=== PATIENT | male | born 1960 | race Caucasian/White ===

== ENCOUNTER 2022-09-26 18:30 | Outpatient (RCR) | payer OTHER, SELFPAY | END 2022-10-20 23:59 | disposition home or self-care (01) | LOC: MM 18:30 | PROVIDERS: PCP Internal Medicine; Visit Provider Internal Medicine | DX: Z51.81 Encounter for therapeutic drug level monitoring (principal); Z79.01 Long term (current) use of anticoagulants; I48.0 Paroxysmal atrial fibrillation | CPT/HCPCS: 85610; G0463 ==

== ENCOUNTER 2022-10-25 10:34 | Outpatient (RCR) | payer OTHER, SELFPAY | END 2022-11-20 17:13 | disposition home or self-care (01) | LOC: MM 10:34 | PROVIDERS: PCP Internal Medicine; Visit Provider Internal Medicine | DX: Z51.81 Encounter for therapeutic drug level monitoring (principal); Z79.01 Long term (current) use of anticoagulants; I48.0 Paroxysmal atrial fibrillation | CPT/HCPCS: 85610; G0463 ==

== ENCOUNTER 2022-11-21 10:03 | Outpatient (RCR) | payer OTHER, SELFPAY | END 2022-12-21 17:47 | disposition home or self-care (01) | LOC: MM 10:03 | PROVIDERS: PCP Internal Medicine; Visit Provider Internal Medicine | DX: Z51.81 Encounter for therapeutic drug level monitoring (principal); Z79.01 Long term (current) use of anticoagulants; I48.0 Paroxysmal atrial fibrillation | CPT/HCPCS: 85610; G0463 ==

== ENCOUNTER 2022-12-22 10:43 | Outpatient (RCR) | payer OTHER, SELFPAY | END 2023-01-19 17:06 | disposition home or self-care (01) | LOC: MM 10:43 | PROVIDERS: PCP Internal Medicine; Visit Provider Internal Medicine | DX: Z51.81 Encounter for therapeutic drug level monitoring (principal); Z79.01 Long term (current) use of anticoagulants; I48.0 Paroxysmal atrial fibrillation | CPT/HCPCS: 85610; G0463 ==

== ENCOUNTER 2023-01-22 02:14 | Outpatient (RCR) | payer OTHER, SELFPAY | END 2023-02-20 17:31 | disposition home or self-care (01) | LOC: MM 02:14 | PROVIDERS: PCP Internal Medicine; Visit Provider Internal Medicine | DX: Z51.81 Encounter for therapeutic drug level monitoring (principal); Z79.01 Long term (current) use of anticoagulants; I48.0 Paroxysmal atrial fibrillation | CPT/HCPCS: 85610; G0463 ==

== ENCOUNTER 2023-02-14 09:44 | Outpatient (RCR) | payer OTHER, SELFPAY | END 2023-03-08 15:44 | disposition home or self-care (01) | LOC: PT 09:44 | PROVIDERS: PCP Internal Medicine; Visit Provider Family Medicine | DX: H81.10 Benign paroxysmal vertigo, unspecified ear (principal) | CPT/HCPCS: 97112; 97161 ==

== ENCOUNTER 2023-02-21 00:21 | Outpatient (RCR) | payer OTHER, SELFPAY | END 2023-03-22 16:23 | disposition home or self-care (01) | LOC: MM 00:21 | PROVIDERS: PCP Internal Medicine; Visit Provider Internal Medicine | DX: Z51.81 Encounter for therapeutic drug level monitoring (principal); Z79.01 Long term (current) use of anticoagulants; I48.0 Paroxysmal atrial fibrillation | CPT/HCPCS: 85610; G0463 ==

== ENCOUNTER 2023-03-23 09:44 | Outpatient (RCR) | payer OTHER, SELFPAY | END 2023-04-20 15:26 | disposition home or self-care (01) | LOC: MM 09:44 | PROVIDERS: PCP Internal Medicine; Visit Provider Internal Medicine | DX: Z51.81 Encounter for therapeutic drug level monitoring (principal); Z79.01 Long term (current) use of anticoagulants; I48.0 Paroxysmal atrial fibrillation | CPT/HCPCS: 85610; G0463 ==

== ENCOUNTER 2023-04-23 02:44 | Outpatient (RCR) | payer OTHER, SELFPAY | END 2023-05-23 17:21 | disposition home or self-care (01) | LOC: MM 02:44 | PROVIDERS: PCP Internal Medicine; Visit Provider Internal Medicine | DX: Z51.81 Encounter for therapeutic drug level monitoring (principal); Z79.01 Long term (current) use of anticoagulants; I48.0 Paroxysmal atrial fibrillation | CPT/HCPCS: 85610; G0463 ==

== ENCOUNTER 2023-05-24 01:08 | Outpatient (RCR) | payer OTHER, SELFPAY | END 2023-06-21 17:38 | disposition home or self-care (01) | LOC: MM 01:08 | PROVIDERS: PCP Internal Medicine; Visit Provider Internal Medicine | DX: Z51.81 Encounter for therapeutic drug level monitoring (principal); Z79.01 Long term (current) use of anticoagulants; I48.0 Paroxysmal atrial fibrillation | CPT/HCPCS: 85610; G0463 ==

== ENCOUNTER 2023-06-12 10:09 | Outpatient (OUT) | payer OTHER, SELFPAY ==
[2023-06-12 11:42] LABS: Alanine Aminotransferase 28 U/L (16-63); Albumin Globulin Ratio 0.8; Albumin Level 3.3 g/dL (3.4-5.0); Alkaline Phosphatase 93 U/L (46-116); Anion Gap 12.9; Aspartate Amino Transferase 18 U/L (15-37); BUN Creatinine Ratio 11.8; Bilirubin Total 0.6 mg/dL (0.2-1.0); Calcium 8.6 mg/dL (8.5-10.1); Carbon Dioxide 28.4 mmol/L (21.0-32.0); Chloride 103 mmol/L (98-107); Chol HDL Ratio 4.1; Cholesterol 135 mg/dL (<=200); Estimated GFR (African America >60 (>=60); Estimated GFR (Non-African Ame >60 (>=60); Globulin 4.4 g/dL; Glucose 85 mg/dL (74-106); HDL Cholesterol 33 mg/dL (40-60); Potassium 4.3 mmol/L (3.5-5.1); Sodium 140 mmol/L (136-145); Total Protein 7.7 g/dL (6.4-8.2); Triglycerides 240 mg/dL (<=150)
== END 2023-06-12 10:10 | disposition home or self-care (01) ==
LOC: LAB 10:10
PROVIDERS: PCP Family Medicine; Visit Provider Family Medicine
DX: E78.2 Mixed hyperlipidemia (principal)
CPT/HCPCS: 36415; 80053; 80061

== ENCOUNTER 2023-06-22 03:21 | Outpatient (RCR) | payer OTHER, SELFPAY | END 2023-07-20 13:58 | disposition home or self-care (01) | LOC: MM 03:21 | PROVIDERS: PCP Family Medicine; Visit Provider Internal Medicine | DX: Z51.81 Encounter for therapeutic drug level monitoring (principal); Z79.01 Long term (current) use of anticoagulants; I48.0 Paroxysmal atrial fibrillation ==

== ENCOUNTER 2023-07-23 03:18 | Outpatient (RCR) | payer OTHER, SELFPAY | END 2023-08-21 18:11 | disposition home or self-care (01) | LOC: MM 03:18 | PROVIDERS: PCP Family Medicine; Visit Provider Internal Medicine | DX: Z51.81 Encounter for therapeutic drug level monitoring (principal); Z79.01 Long term (current) use of anticoagulants; I48.0 Paroxysmal atrial fibrillation | CPT/HCPCS: 85610; G0463 ==

== ENCOUNTER 2023-08-22 00:28 | Outpatient (RCR) | payer OTHER, SELFPAY | END 2023-09-21 11:28 | disposition home or self-care (01) | LOC: MM 00:28 | PROVIDERS: PCP Family Medicine; Visit Provider Internal Medicine | DX: Z51.81 Encounter for therapeutic drug level monitoring (principal); Z79.01 Long term (current) use of anticoagulants; I48.0 Paroxysmal atrial fibrillation | CPT/HCPCS: 85610; G0463 ==

== ENCOUNTER 2023-09-20 08:22 | Outpatient (OUT) | payer OTHER, SELFPAY ==
--- OUTSIDE RECORDS SUMMARY | 2023-09-20 08:35 | XMS_ITS | CCD ---
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 Name Role Phone PHYSICIAN, DEFAULT Unavailable Unavailable PHYSICIAN, DEFAULT Unavailable Unavailable CARLY GAMBLE Unavailable Unavailable JEANCARLOS GUDINO Unavailable Unavailable Jeancarlos Gudino Unavailable Unavailable Unavailable Jeancarlos GUDINO Primary Care Physician Jeancarlos GUDINO Referring Unavailable TERESE, Jeancarlos Finney Attending Unavailable TERESE, Jeancarlos Finney Admitting Unavailable TERESE, Jeancarlos Finney Attending Unavailable TERESE, Jeancarlos Finney Attending Unavailable Regi Leong Unavailable TERESE, DR JEANCARLOS Finney Consulting Unavailable TERESE, DR JEANCARLOS Malloyitting Unavailable TERESE, DR JEANCARLOS Finney Attending Unavailable TERESE, DR JEANCARLOS Finney Primary Care Unavailable TERESE, DR JEANCARLOS Finney Consulting Unavailable TERESE, DR JEANCARLOS Finney Attending Unavailable TERESE, DR JEANCARLOS Finney Primary Care Unavailable TERESE, DR JEANCARLOS Finney Admitting Unavailable TYE, DR CARLY White Consulting Unavailable GAMBLE, DR CARLY White Attending Unavailable GAMBLE, DR CARLY White Admitting Unavailable TERESE, DR JEANCARLOS Finney Primary Care Unavailable TERESE, DR JEANCARLOS Finney Consulting Unavailable TERESE, DR JEANCARLOS Finney Attending Unavailable TERESE, DR JEANCARLOS Finney Admitting Unavailable TERESE, DR JEANCARLOS Finney Primary Care Unavailable SALO, DR REGI Jones Primary Care Unavailable SALO, DR REGI Jones Consulting Unavailable LEONG, DR REGI Jones Attending Unavailable SALO, DR REGI Jones Admitting Unavailable TERESE, DR JEANCARLOS Finney Attending Unavailable TERESE, DR JEANCARLOS Finney Admitting Unavailable TERESE, DR JEANCARLOS Finney Primary Care Unavailable TERESE, DR JEANCARLOS Finney Consulting Unavailable GAMBLE, DR CARLY White Consulting Unavailable GAMBLE, DR CARLY White Attending Unavailable GAMBLE, DR CARLY White Admitting Unavailable TERESE, DR JEANCARLOS Finney Primary Care Unavailable TERESE, DR JEANCARLOS Finney Attending Unavailable TERESE, DR JEANCARLOS Finney Admitting Unavailable TERESE, DR JEANCARLOS Finney Primary Care Unavailable TERESE, DR JEANCARLOS Finney Consulting Unavailable TERESE, DR JEANCARLOS Finney Consulting Unavailable TERESE, DR JEANCARLOS Finney Admitting Unavailable TERESE, DR JEANCARLOS Finney Attending Unavailable TERESE, DR JEANCARLOS Finney Primary Care Unavailable TERESE, DR JEANCARLOS Finney Consulting Unavailable TERESE, DR JEANCARLOS Finney Admitting Unavailable TERESE, DR JEANCARLOS Finney Attending Unavailable TERESE, DR JEANCARLOS Finney Primary Care Unavailable TERESE, DR JEANCARLOS Finney Consulting Unavailable TERESE, DR JEANCARLOS Finney Admitting Unavailable TERESE, DR JEANCARLOS Finney Attending Unavailable TERESE, DR JEANCARLOS Finney Primary Care Unavailable TERESE, DR JEANCARLOS Finney Consulting Unavailable TERESE, DR JEANCARLOS Finney Admitting Unavailable TERESE, DR JEANCARLOS Finney Attending Unavailable TERESE, DR JEANCARLOS Finney Primary Care Unavailable German, Kamal Unavailable Regi Leong Unavailable Terese, Dr. Jeancarlos Dhillon [facility] Tomas Gamble, Dr. Carly Godoy Attending Simran vailable Tye, Dr. Carly Godoy Referring Simran vailable Terese, Dr. Jeancarlos Dhillon [facility] Tomas Gamble, Dr. Carly Godoy Attending Simran vailable Tye, Dr. Carly Godoy Referring Simran vailable MD Regi Leong Primary Care Provider [phone] MD Uche Porter Attending Provider [phone] Stephaniaban, Kamal Admitting Unavailable German, Uche Attending Unavailable Regi Leong Primary Care Unavailable Regi Leong Primary Care Unavailable Chaban, Kamal Admitting Unavailable Changuyễn, Uche Attending Unavailable German, Uche Attending Unavailable Regi Leong Primary Care Unavailable Chaban, Kamal Admitting Unavailable Allergies Allergy Classification Reported Allergen(s) Allergy Type Date of Onset Reaction(s) Facility (17 sources) dabigatran etexilate; Translations: [Pradaxa CAPS] [facility] Work Phone: (13 sources) Penicillins; Translations: [Penicillins] Allergy to drug (finding) [address] [facility] Work Phone: (2 sources) dabigatran etexilate; Translations: [dabigatran] Drug Allergy Rectal hemorrhage (disorder), Bleeding from nose (finding), Incontinence (finding) [facility] [place] (8 sources) Penicillin; Translations: [penicillin] Drug Allergy 7 anaphylaxis [facility] (2 sources) dabigatran etexilate; Translations: [dabigatran etexilate] Drug Allergy 4 bleeding [facility] (1 source) Penicillins Drug allergy (disorder) 4 [facility] Repository Medications Current Medications Medication Drug Class(es) Dates Sig (Normalized) Sig (Original) Aciphex 20 mg Tab-EC (1 source) Start: 05-21-2021 take 1 tablet by mouth once daily Aciphex 20 mg Tab-EC 20 mg = 1 tab(s), Oral, Daily, # 90 tab(s), Refills(s) 3, Pharmacy: [facility], 180.3, cm, 05/20/20 15:18:00 EST, Height/Length Dosing, 108.4, kg, 05/20/20 15:18:00 EST, Weight Dosing Start Date: 05/21/21 Status: Ordered 12 hr buPROPion hydrochloride 150 mg extended release oral tablet (4 sources) Aminoketone Start: 08-01-2023 take 150 mg by mouth twice daily Bupropion Hcl Active 150 MG PO Twice daily 180 August 01, 2023 8:55am Start: 07-27-2023 End: 08-01-2023 take 150 mg by mouth once daily Bupropion Hcl Discontinued 150 MG PO Daily July 27, 2023 10:47pm August 01, 2023 8:56am Wellbutrin SR 15 0 MG 1 tablet in the morning Orally Once a day x 3 days, then bid for 30 days Active Cholestyramine Resin (7 sources) Bile Acid Sequestrant Start: 12-02-2018 Questran 4 g/9 g oral powder = 1 packet(s), Oral, BID, # 60 EA, Refills(s) 5, Pharmacy: [facility] Start Date: 12/02/18 Status: Ordered Cholestyramine 4 GM Oral Packet MIX THE CONTENTS OF 1 POWDER PACKET WITH 2 TO 6 OZ OF NONCARBONATED BEVERAGE NEEDED. Quantity: 0 Refills: 0 Ordered: 12-Dec-2022 DO Active colestipol hydrochloride 5000 mg granules for oral suspension (8 sources) Bile Acid Sequestrant Start: 08-07-2023 Colestip ol Active GM PO As Directed August 07, 2023 12:00am FreeTextSig: as directed Orally; Note: Source Status: Taking; Provider: Salo Sutherlandstid 5 GM as directed Orally Active dronedarone 400 mg oral tablet (19 sources) Antiarrhythmic Start: 08-07-2023 take 1 tablet by mouth twice daily at mealtime Dronedarone Active 400 MG PO Twice daily August 07, 2023 12:00am FreeTextSi tablet with meals Orally Twice a day; Note: Source Status: Taking; Provider: German Ivey ( ) Start: 05-20-2020 take 1 tablet by ej th twice daily at dinner Multaq 400 MG Oral Tablet TAKE 1 TABLET TWICE DAILY, WITH MORNING AND EVENING MEAL Quantity: 180 Refills: 3 Ordered: 12-Dec-2022 Carly Gamble MD Start : 03-Feb-2021 Active magnesium oxide 400 mg oral tablet (2 sources) Start: 09-09-2021 take 1 tablet by mouth once daily magnesium oxide 400 mg Tab TAKE ONE TABLET BY MOUTH DAILY Start Date: 09/09/21 Status: Ordered Start: 05-24-2021 take 1 tablet by ej th once daily Magnesium Oxide 400 MG Oral Tablet TAKE 1 TABLET DAILY. Quantity: 90 Refills: 3 Ordered: 24-May-2021 Carly Gamble MD Start : 24-May-2021 Active New start nebivolol (19 sources) Start: 08-07-2023 take 1 tablet by ej th once daily Nebivolol Active 1 TAB PO Daily August 07, 2023 12:00am FreeTextSi tablet Orally Once a day; Note: Source Status: Taking; Provider: German Ivey ( ) Start: 05-20-2020 take 1 tablet by ej th once daily Nebivolol HCl - 10 MG Oral Tablet Take 1 tablet daily Quantity: 90 Refills: 3 Ordered: 12-Dec-2022 Carly Gamble MD Start : 03-Feb-2021 Active RABEprazole sodium 20 mg delayed release oral tablet (17 sources) Proton Pump Inhibitor Start: 08-07-2023 End: 08-07-2023 take 1 tablet by mouth once daily Rabeprazole (Aciphex) 20 mg tablet,delayed release (DR/EC) Active 20 MG PO Daily August 07, 2023 12:00am Start: 05-21-2021 take 1 tablet by ej th once daily RABEprazole Sodium 20 MG Oral Tablet Delayed Release TAKE 1 TABLET DAILY. Quantity: 0 Refills: 0 Ordered: 21-May-2021 DO Start : 21-May-2021 Active Aciphex Active varenicline 1 mg oral tablet (2 sources) Partial Cholinergic Nicotinic Agonist Start: 09-04-2022 take 0.5 tablet by mouth once daily, then take 0.5 tablet by mouth twice daily, then take 1 tablet by mouth twice daily APO-Varenicline 1 MG 1/2 tab once daily x 3 days, then 1/2 tab bid, x 4 days then 1 po bid Orally for 90 days August, Active warfarin sodium 5 mg oral tablet (20 sources) Vitamin K Antagonist Start: 07-27-2023 End: 07-27-2023 take 5 mg by mouth once daily Warfarin Active 5 MG PO Daily July 27, 2023 10:48pm Start: 02-08-2021 Warfarin Sodiu m 5 MG Oral Tablet DIRECTED BY DR GUDINO Quantity: 0 Refills: 0 Ordered: 11-May-2021 DO Start : 08-Feb-2021 Active Start: 02-08-2021 warfarin 5 mg Tab See Instructions, Take 1 tablet sunday, , sunday, sunday, and 1.5 tablets(7.5 MG) Sunday, sunday, and sunday, # 150 tab(s), Refills(s) 3, Pharmacy: [facility], 180.3, cm, 05/20/20 15:18:00 EST, Height/Length Dosing, 10... Start Date: 02/08/21 Status: Ordered Warfarin 5mg 5 m g 1 tab orally , , sun, & sun Active Warfarin 5mg 5 m g 1 & 1/2 tab orally Mon, wed, & fri Active Completed/Discontinued Medications Medication Drug Class(es) Dates Sig (Normalized) Sig (Original) docosahexaenoic acid 120 mg / eicosapentaenoic acid 180 mg oral capsule (3 sources) take 2 capsules by mouth twice daily Delmar 3 1000 MG Oral Capsule TAKE 2 CAPSULE Twice daily Quantity: 0 Refills: 0 Ordered: 06-Dec-2021 DO Active Magnesium (5 sources) take 1 tablet by mouth once daily Magnesium 250 MG Oral Tablet TAKE 1 TABLET DAILY. Quantity: 0 Refills: 0 Ordered: 06-Dec-2021 DO Active pravastatin sodium 20 mg oral tablet (1 source) HMG-CoA Reductase Inhibitor Start: 01-05-2023 take 1 mg by mouth once daily Pravastatin Sodium 20 MG Oral Tablet take one daily at night Quantity: 30 Refills: 5 Ordered: 05-Jan-2023 Carly Gamble MD Start : 05-Jan-2023 Active new replaces crestor rosuvastatin calcium 20 mg oral tablet (1 source) HMG-CoA Reductase Inhibitor Start: 12-12-2022 take 1 tablet by mouth once daily Rosuvastatin Calcium 20 MG Oral Tablet TAKE 1 TABLET DAILY. Quantity: 90 Refills: 3 Ordered: 12-Dec-2022 Carly Gamble MD Start : 12-Dec-2022 Active Problems Active Problems Problem Classification Problem Date Documented Date Episodic/Chronic Cardiac dysrhythmias (20 sources) Paroxysmal atrial fibrillation; Translations: [Atrial fibrillation] Onset: 11-22-2021 Chronic Cardiac dysrhythmias (6 sources) Palpitations; Translations: [Palpitations] Episodic Cardiac dysrhythmias (1 source) Cardiac dysrhythmias Onset: 12-26-2017 Conditions associated with dizziness or vertigo (3 sources) Dizziness and giddiness; Translations: [Dizziness and giddiness] Onset: 09-09-2021 Episodic Disorders of lipid metabolism (16 sources) Hypertriglyceridemia; Translations: [Pure hyperglyceridemia] Resolved: 12-12-2022 Chronic Esophageal disorders (10 sources) Gastroesophageal reflux disease; Translations: [GERD [Gastroesophageal reflux disease]] Chronic Other aftercare (6 sources) Drug therapy finding; Translations: [Long-term (current) use of other medications] Episodic Other aftercare (4 sources) Encounter for therapeutic drug level monitoring; Translations: [ENC THERAPEUTC DRUG LEVL MONITORING] Onset: 07-27-2022 Episodic Other aftercare (1 source) 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; Translations: [OTH PAYROLL MASTER CURRENT DRUG THERAPY] Onset: 06-12-2022 Episodic Other ear and sense organ disorders (1 source) Hearing loss; Translations: [Unspecified hearing loss, right ear] Onset: 09-09-2021 Chronic Other ear and sense organ disorders (1 source) Hearing loss of right ear 09-09-2021 Chronic Other lower respiratory disease (5 sources) Nodule of lung; Translations: [Solitary pulmonary nodule] Episodic Other lower respiratory disease (4 sources) Solitary pulmonary nodule; Translations: [Solitary pulmonary nodule] Onset: 10-13-2022 Episodic Other nervous system disorders (6 sources) Vela's palsy; 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] Episodic Other nervous system disorders (2 sources) Trigeminal neuralgia; Translations: [Trigeminal neuralgia] Onset: 09-09-2021 Episodic Other nutritional; endocrine; and metabolic disorders (6 sources) Obesity; Translations: [Obesity, unspecified] Chronic Other screening for suspected conditions (not mental disorders or infectious disease) (12 sources) CT of chest abnormal; Translations: [Abnormal findings on diagnostic imaging of other specified body structures] Chronic Other screening for suspected conditions (not mental disorders or infectious disease) (2 sources) Encounter for screening for malignant neoplasm of prostate; Translations: [Encounter for screening for malignant neoplasm of colon] Episodic Substance-related disorders (20 sources) Smokes tobacco daily; Translations: [Tobacco use disorder] Chronic Comment on above: 1 ppd; Syncope (1 source) Vasovagal attack 07-01-2013 Episodic Transient cerebral ischemia (6 sources) Transient cerebral ischemia; Translations: [Unspecified transient cerebral ischemia] Chronic Unclassified (2 sources) 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 / Z79.899(ICD-9) Onset: 12-26-2017 Unclassified (3 sources) Patient encounter status 05-01-2019 Unclassified (1 source) Encounter for screening for malignant neoplasm of respiratory organs; Translations: [Encounter for screening for malignant neoplasm of respiratory organs] Onset: 02-01-2023 Past or Other Problems Problem Classification Problem Date Documented Da te Episodic/Chronic Blindness and vision defects (6 sources) Eye / vision finding; Translations: [Unspecified visual disturbance] Resolved: 12-12-2022 Episodic Chronic kidney disease (5 sources) Chronic kidney disease stage 3A ; Translations: [Chronic kidney disease, Stage III (moderate)] Resolved: 12-12-2022 Chronic Unclassified (1 source) Other fpc (current) drug therapy; Translations: [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 Main [place] [address] [place] [address] CT Scan Report Signed Patient: Abhinav Felix MR#: [id number] : 1960 Acct:[id number] Age/Sex: 63 / M ADM Date: 08/07/23 Loc: [facility] Room: Type: [facility] Attending Dr: Uche Porter MD Copies to: Uche Porter MD Ordering Provider: Uche Porter MD Date of Service: 08/07/23 CT/CT chest wo con: R91.1 CT CHEST WITHOUT CONTRAST COMPARISON: 02/01/2023 CLINICAL DATA: Follow-up left upper lobe lung nodule. Tobacco use. Spiral images were obtained through the chest without contrast. Images were reviewed using both narrow and wide window settings. This CT exam was performed using one or more following dose reduction techniques: Automated exposure control, adjustment of the mA and/or kV according to patient size, or use of iterative reconstruction technique. The heart is top normal in size. No pericardial effusion is present. Coronary artery disease is seen. No aortic aneurysm is identified. There is minimal plaque at the aortic arch. Similar mediastinal lymph nodes are present. There is slight dextroscoliotic curvature and tiny endplate spurs. There is obstructive lung disease. Peripheral interstitial thickening and subtle groundglass density are again noted. There is dependent atelectasis. No additional consolidation, pleural effusion or pneumothorax is noted. A 7 mm noncalcified left upper lobe pulmonary nodule is still seen, without significant change. No new nodularity is identified. Limited cuts through the upper abdomen show prior cholecystectomy. CT/CT chest wo con IMPRESSION: BORDERLINE CARDIOMEGALY. SIMILAR MEDIASTINAL LYMPH NODES. INTERSTITIAL AND OBSTRUCTIVE LUNG DISEASE. LOBULATED LEFT UPPER LOBE PULMONARY NODULE, UNCHANGED. CONTINUED SURVEILLANCE IS RECOMMENDED. Impression dictated by: Aracelis Banks M.D.08/07/2023 4:29 PM Dictation Location: [facility]--12 Transcribed By: KIANA 08/07/23 162 Dictated By: Aracelis Banks MD 08/07/23 162 Signed By: 08/07/23 162 Normal [facility] Cholesterol in LDL Calc [Mas s/Vol]on 06-12-2023 Cholesterol in LDL [Mass/Vol] 54.0 mg/dL [facility] Comment on above: <100 mg/dl [id number] 0-129 mg/dl NEAR OR ABOVE [id number] mg/dl BORDERLINE [id number] mg/dl HIGH>190 mg/dl VERY HIGH Cholesterol in VLDL Calc [Ma ss/Vol]on 06-12-2023 Cholesterol in VLDL [Mass/Vol] 48.0 mg/dL [facility] Estimated glomerular filtrat ion rate (GFR) non- Americanon 06-12-2023 GFR/1.73 sq M.predicted among non-blacks MDRD (S/P/Bld) [Vol rate/Area] mL/min/{1.73_m2} >=60 [facility] Globulin Calc (S) [Mass/Vol] on 06-12-2023 Globulin (S) [Mass/Vol] 4.4 g/dL [facility] Laboratory - Chemistry and C hemistry - challengeon 06-12-2023 Albumin [Mass/Vol] 3.3 g/dL 3.4-5.0 [facility] ALP [Catalytic activity/Vol] 93 U/L 46-116 [facility] ALT [Catalytic activity/Vol] 28 U/L 16-63 [facility] AST [Catalytic activity/Vol] 18 U/L 15-37 [facility] Bilirubin [Mass/Vol] 0.6 mg/dL 0.2-1.0 [facility] Calcium [Mass/Vol] 8.6 mg/dL 8.5-10.1 [facility] Chloride [Moles/Vol] 103 mmol/L 98-107 [facility] Cholesterol [Mass/Vol] 135 mg/dL <=200 [facility] Cholesterol in HDL [Mass/Vol] 33 mg/dL 40-60 [facility] Comment on above: > or =60 mg/dl - LOW CARDIOVASCULAR RISK<40 mg/dl - HIGH CARDIOVASCULAR RISK CO2 [Moles/Vol] 28.4 mmol/L 21.0-32.0 [facility] Creatinine [Mass/Vol] 0.93 mg/dL 0.70-1.30 [facility] GFR/1.73 sq M.predicted MDRD (S/P/Bld) [Vol rate/Area] mL/min/{1.73_m2} >=60 [facility] Glucose [Mass/Vol] 85 mg/dL 74-106 [facility] Potassium [Moles/Vol] 4.3 mmol/L 3.5-5.1 [facility] Protein [Mass/Vol] 7.7 g/dL 6.4-8.2 [facility] Sodium [Moles/Vol] 140 mmol/L 136-145 [facility] Triglyceride [Mass/Vol] 240 mg/dL <=150 [facility] Urea nitrogen [Mass/Vol] 11.0 mg/dL 7.0-18.0 [facility] Urea nitrogen/Creatinine [Mass ratio] 11.8 mg/mg [facility] Serum or plasma albumin/glob ulin mass ratioon 06-12-2023 Albumin/Globulin [Mass ratio] 0.8 {ratio} [facility] Serum or plasma anion gap de terminationon 06-12-2023 Anion gap [Moles/Vol] 12.9 mmol/L [facility] Serum or plasma total choles terol/high density lipoprotein (HDL) cholesterol mass juan miguel 06-12-2023 Cholesterol.total/Ch olesterol in HDL [Mass ratio] 4.1 {ratio} [facility] Comment on above: 3.3 - 4.4 LOW RISK4. 4 - 7.1 AVERAGE RISK7.1 - 11.0 MODERATE RISK>11.[address] lung screeningon 02-02-[address] lung screening [facility] Main [address] [address] [address] Scan Report Signed Patient: Abhinav Felix MR#: [id number] : 1960 Acct:[id number] Age/Sex: 62 / M ADM Date: 02/01/23 Loc: [facility] Room: Type: [facility] Attending Dr: Uche Porter MD Copies to: Uche Porter MD Ordering Provider: Uche Porter MD Date of Service: 02/01/23 CT/CT lung screening: r91.1 CT CHEST WITHOUT CONTRAST, LOW DOSE SCREENING: CLINICAL DATA: A 62-year old current smoker, smoking for 40 pack-years. COMPARISON: Outside CT chest 09/14/2022 TECHNIQUE: Noncontrast axial CT scan images of the chest were obtained under the low dose screening CT protocol. Coronal and sagittal reconstructed images were also submitted. FINDINGS: Mediastinum : Suboptimal evaluation due to low-dose technique. Thoracic aorta appears normal in caliber. Pulmonary trunk appears nondilated. No pericardial effusion. No lymphadenopathy. Prominent mediastinal lymph nodes largest seen within the precarinal region measuring 11 mm in short axis similar to the prior study. The esophagus is grossly unremarkable. Small hiatal hernia. Lungs: Emphysematous changes with scattered areas of groundglass and reticulation similar to the prior study. No honeycombing. No pneumothorax or pleural effusion. Stable 8 mm noncalcified pulmonary nodule left upper lobe series 4 image 56. This was reported as non-FDG avid. No new or enlarging suspicious pulmonary nodules. Upper abdomen: No acute findings. Bony thorax and chest wall: Soft tissues surrounding the chest wall demonstrate no acute findings. Osseous structures demonstrate degenerative change. CT/CT lung screening IMPRESSION: STABLE 8 MM NONCALCIFIED PULMONARY NODULE LEFT UPPER LOBE. NO NEW OR ENLARGING SUSPICIOUS PULMONARY NODULES. LUNG - RADS Version 1.0 Assessment: Category 3, Probably benign (Probably benign finding(s) - short term follow up suggested; includes nodules with a low likelihood of becoming a clinically active cancer). Management: 6 Month LDCT. Impression dictated by: Yannick Lockwood Jr., D.OSwapna02/01/2023 2:00 PM Dictation Location: [place] [address] Transcribed By: [facility] 02/01/23 1400 Dictated By: Yannick Lockwood Jr, DO 02/01/23 1348 Signed By: 02/01/23 1400 Normal [facility] Office Visit (Cardiology)on 12-12-2022 Follow-up visit Diagnoses/Problems Assessed Paroxysmal atrial fibrillation (427.31) (I48.0) TIA (transient ischemic attack) (435.9) (G45.9) PVC (premature ventricular contraction) (427.69) (I49.3) PAC (premature atrial contraction) (427.61) (I49.1) High risk medication use (V58.69) (Z79.899) Current every day smoker (305.1) (F17.200) 1 ppd Class 1 obesity with body mass index (BMI) of 33.0 to 33.9 in adult (278.00,V85.33) (E66.9,Z68.33) Dyslipidemia (272.4) (E78.5) Orders Class 1 obesity with body mass index (BMI) of 33.0 to 33.9 in adult Healthy Weight Tips; Status:Complete - Retrospective Authorization; Done: [id number] Some eating tips that can help you lose weight.; Status:Complete - Retrospective Authorization; Done: [id number] Paroxysmal atrial fibrillation Renew: Multaq 400 MG Oral Tablet; TAKE 1 TABLET TWICE DAILY, WITH MORNING AND EVENING MEAL IO EKG Electrocardiogram- 12 Lead; Status:Complete; Done: [id number] Renew: Nebivolol HCl - 10 MG Oral Tablet (Bystolic); Take 1 tablet daily PMH: High triglycerides, Paroxysmal atrial fibrillation Start: Rosuvastatin Calcium 20 MG Oral Tablet (Crestor); TAKE 1 TABLET DAILY SocHx: Current every day smoker You need to stop smoking. Though it is not easy, more than half of all adult smokers have quit. We encourage you to write down all the reasons you should quit smoking and set a quit date for yourself. Ask us how we can help. You may also call 6-429-ZBUK-NOW for free resources and assistance.; Status:Complete - Retrospective Authorization; Done: [id number] Tobacco Use Screening; Status:Complete; Done: [id number] Patient Instructions Please bring all medicines, vitamins, and herbal supplements with you when you come to the office. Prescriptions will not be filled unless you are compliant with your follow up appointments or have a follow up appointment scheduled as per instruction of your physician. Refills should be requested at the time of your visit. Fall prevention education given crestor 20 mg daily Follow up in [ 6] months Chief Complaint ABHINAV FELIX is being seen for a 6 month follow-up of. Patient is in the office for follow-up for the problems noted below. He remains in normal sinus rhythm confirmed by EKG today with rare breakthrough arrhythmias. He is on Coumadin managed by the Coumadin clinic. His weight has not dropped much from last visit but he is moving in the right direction. Unfortunately continues to smoke and his effort to quit smoking and failed. Recent lab data showed normal renal function and reassurances that regard was provided. His lipid profile though is out of control. He takes cholestyramine but he takes it only for diarrhea that developed after gallbladder surgery. I advised patient to go on rosuvastatin which he will. ASSESSMENT AND PLAN: 1. Paroxysmal atrial fibrillation, status post ablation twice with recurrences, currently on Multaq and Coumadin.. 2. Class I obesity. Encouraged more weight control with diet and exercise. 3. Active tobacco abuse. He was counseled again for tobacco cessation. 4. High-risk medication with Multaq and Coumadin, both of which have been well tolerated. 5. Remote history of TIA with no recurrences 6. Dyslipidemia, the patient is willing to go on rosuvastatin 20 mg daily. Surgical History Problems History of Catheter ablation History of Cholecystectomy History of Colonoscopy Past Medical History Problems History of High triglycerides (272.1) (E78.1) Resolved Date: 12 Dec 2022 History of Stage 3a chronic kidney disease (585.3) (N18.31) History of Vision changes (368.9) (H53.9) Current Meds Medication NameInstruction Cholestyramine 4 GM Oral PacketMIX THE CONTENTS OF 1 POWDER PACKET WITH 2 TO 6 OZ OF NONCARBONATED BEVERAGE NEEDED. Magnesium 250 MG Oral TabletTAKE 1 TABLET DAILY. Multaq 400 MG Oral TabletTAKE 1 TABLET TWICE DAILY, WITH MORNING AND EVENING MEAL Nebivolol HCl - 10 MG Oral TabletTake 1 tablet daily RABEprazole Sodium 20 MG Oral Tablet Delayed ReleaseTAKE 1 TABLET DAILY. Warfarin Sodium 5 MG Oral TabletAS DIRECTED BY DR GUDINO Allergies Medication Penicillins Allergy; Updated By: Loretta Terry; 04/19/2021 2:52:14 PM intolerance Pradaxa CAPS Adverse Reaction; Updated By: Loretta Terry; 04/19/2021 2:52:14 PM rectal bleed Social History Problems Alcohol use (V49.89) (Z78.9) 1-2 mixed drinks a week Caffeine use (V49.89) (Z78.9) 1 decaff coffee Current every day smoker (305.1) (F17.200) 1 ppd No illicit drug use Review of Systems Constitutional: not feeling tired. Cardiovascular: no intermittent leg claudication and as noted in HPI. Respiratory: no cough and no shortness of breath. Gastrointestinal: no change in bowel habits and no blood in stools. Integumentary: no skin rashes. Neurological: no seizures and no frequent falls. All other systems have been reviewed and are negative for complaint. Vitals Vital Signs (more content not included)... Normal [employer] Tobacco Screening.on 023 Fall risk assessment b) One or more falls in the last year [facility] [employer] 250 DO Work Phone: Tobacco use status CP a) Yes [facility] [employer] 250 DO Work Phone: Tobacco Screening. Yes [facility] [employer] 250 DO Work Phone: Glucose Poct Glucometerson 0 10-13-2022 Glucose [Mass/Vol] 114 mg/dL Normal [facility] Comment on above: Result Comment: [facility] Glucose Reference Range is dependent on time and content of last meal. Glucose of more than 200 mg/dL in a nonstressed, ambulatory subject supports the diagnosis of Diabetes Mellitus. PERFORMED BY: [place] [address] PATHOLOGIST LAB SCIENTIST LEXA VALDEZ M.D. Performed By: #### G LULS #### Point of Care testing , PET tumor init tx strat sb-m ton 10-13-2022 PET tumor init tx strat sb-mt [facility] Main [place] [address] [place] [address] Nuclear Medicine Report Signed Patient: Abhinav Felix MR#: [id number] : 1960 Acct:[id number] Age/Sex: 62 / M ADM Date: 10/13/22 Loc: Room: Type: [facility] Attending Dr: Uche Porter MD Copies to: Yannick Lockwood Jr, DO Kamal Chaban, MD Ordering Provider: Uche Porter MD Date of Service: 10/13/22 PET/PET tumor init tx strat sb-mt: R91.1 PET/CT FUSION IMAGING CLINICAL INFORMATION: Lung nodule COMPARISON : Outside lung screening CT 09/12/2022 TECHNIQUE: Noncontrasted CT scan from the base of the skull to the upper thigh followed by PET imaging. Multiplanar PET/CT fusion images. Blood Glucose : 114 mg/dL The F-18 FDG 11.71mCi. FINDINGS: Neck: No abnormal activity is identified. Chest:No FDG avid lung nodules identified. The previously identified 9 mm nodule involving the left upper lobe is not FDG avid, SUV max of 0.8. FDG avid mediastinal lymph nodes, SUV max of 3.1 involving a precarinal lymph node. Abdomen/pelvis: No abnormal activity. Soft tissue/bones: Abnormal activity is identified involving a fractures of the right fifth and sixth ribs, SUV max of 2.2. CT findings: No pericardial or pleural effusions. No pneumothorax. No free air or free fluid. PET/PET tumor init tx strat sb-mt IMPRESSION: 1. No FDG avid lung nodules identified. CT follow-up is recommended. 2. Mildly FDG avid mediastinal lymph nodes. Finding is nonspecific. CT follow-up is recommended. 3. Activity is noted involving fractures involving the right fifth and sixth ribs. Please correlate with history of trauma history of trauma. Impression dictated by: Yannick Lockwood Jr., D.O.10/13/2022 1:03 PM Dictation Location: [place] [address] Transcribed By: [facility] 10/13/22 1303 Dictated By: Yannick Lockwood Jr, DO 10/13/22 1101 Signed By: 10/13/22 1303 Normal The [facility] CBC AUTO DIFFon 09-04-2022 BASO # 0.1 103/ul Normal 0.0-0.1 [place] Comment on above: Performed By: #### P [facility] #### [facility] [address] [address] [address] Nabil Che Basophils/100 WBC (Bld) 0.9 % Normal 0.2-2.0 [place] Comment on above: Performed By: #### P SASC #### [facility] [address] [place] [address] Dr. Nabil Che EO # 0.3 103/ul Normal 0.0-0.7 [place] Comment on above: Performed By: #### P SASC #### [facility] [address] [place] [address] Dr. Nabil Che Eosinophils/100 WBC (Bld) 3.3 % Normal 0.9-7.0 [place] Comment on above: Performed By: #### P SASC #### [facility] [address] [place] [address] Dr. Nabil Che Erythrocyte distribution width (RBC) [Ratio] 13.2 % Normal 11.0-15.0 [place] Comment on above: Performed By: #### P SASC #### [facility] [address] [place] [address] Dr. Nabil Che Hematocrit (Bld) [Volume fraction] 51.1 % Normal 42.0-54.0 [place] Comment on above: Performed By: #### P SASC #### [facility] [address] [place] [address] Dr. Nabil Che Hemoglobin (Bld) [Mass/Vol] 17.8 g/dL Normal 14.0-18.0 [place] Comment on above: Performed By: #### P SASC #### [facility] [address] [place] [address] Dr. Nabil Che IG # 0.07 10e3/ul Critically high 0.00-0.03 [facility] Comment on above: Performed By: #### P SASC #### [facility] [address] [place] [address] Dr. Nabil Che IG % 0.7 % Critically high 0.0-0.5 [facility] Comment on above: Performed By: #### P SASC #### [facility] [address] [place] [address] Dr. Nabil Che LYMPH # 2.1 103/ul Normal 1.2-3.8 [place] Comment on above: Performed By: #### P SASC #### [facility] [address] [place] [address] Dr. Nabil Che Lymphocytes/100 WBC (Bld) 21.2 % Normal 20.5-60.0 [place] Comment on above: Performed By: #### P SASC #### [facility] [address] [place] [address] Dr. Nabil Che MANUAL DIFF REQ NO Normal [facility] Comment on above: Performed By: #### P SASC #### [facility] [address] [place] [address] Dr. Nabil Che MCH (RBC) [Entitic mass] 31.5 pg Normal 25.9-34.0 [place] Comment on above: Performed By: #### P SASC #### [facility] [address] [place] [address] Dr. Nabil Che MCHC (RBC) [Mass/Vol] 34.8 g/dL Normal 29.9-35.2 [place] Comment on above: Performed By: #### P SASC #### [facility] [address] [place] [address] Dr. Nabil Che MCV (RBC) [Entitic vol] 90.4 fL Normal 80.0-94.0 [place] Comment on above: Performed By: #### P SASC #### [facility] [address] [place] [address] Dr. Nabil Che MONO # 1.2 103/ul Critically high 0.3-0.8 [facility] Comment on above: Performed By: #### P SASC #### [facility] [address] [place] [address] Dr. Nabil Che Monocytes/100 WBC (Bld) 12.1 % Critically high 1.7-12.0 [place] Comment on above: Performed By: #### P SASC #### [facility] [address] [place] [address] Dr. Nabil Che NEUT # 6.0 103/ul Normal 1.4-6.5 [place] Comment on above: Performed By: #### P SASC #### [facility] [address] [place] [address] Dr. Nabil Che Neutrophils/100 WBC (Bld) 61.8 % Normal 43.0-75.0 [place] Comment on above: Performed By: #### P SASC #### [facility] [address] [place] [address] Dr. Nabil Che Platelet mean volume (Bld) [Entitic vol] 10.3 fL Normal 9.5-13.5 [place] Comment on above: Performed By: #### P SASC #### [facility] [address] [place] [address] Dr. Nabil Che PLT 203 103/ul Normal 150-450 [place] Comment on above: Performed By: #### P SASC #### [facility] [address] [place] [address] Dr. Nabil Che RBC 5.65 106/ul Normal 4.70-6.10 [place] Comment on above: Performed By: #### P SASC #### [facility] [address] [place] [address] Dr. Nabil Che WBC 9.8 103/ul Normal 4.0-11.0 [place] Comment on above: Performed By: #### P SASC #### [facility] [address] [place] [address] Dr. Nabil Che LIPID PROFILEon 09-04-2022 CHOL-HDL RATIO NORM SEE BELOW Normal [facility] Comment on above: Result Comment: 3.3 - 4.4 LOW RISK 4.4 - 7.1 AVERAGE RISK 7.1 - 11.0 MODERATE RISK >11.0 HIGH RISK Performed By: #### L IPID, CMP #### [facility] [address] [place] [address] Dr. Nabil Che Cholesterol [Mass/Vol] 231 mg/dL Critically high <=200 [place] Comment on above: Performed By: #### L IPID, CMP #### [facility] [address] [address] [address] Nabil Che Cholesterol in HDL [Mass/Vol] 37 mg/dL Critically low 40-60 [facility] Comment on above: Performed By: #### L IPID, CMP #### [facility] [address] [address] [address] Nabil Che Cholesterol in LDL [Mass/Vol] 137.0 mg/dL Normal [place] Comment on above: Performed By: #### L IPID, CMP #### [facility] [address] [place] [address] Dr. Nabil Che Cholesterol.total/Ch olesterol in HDL [Mass ratio] 6.2 {ratio} Normal [place] Comment on above: Performed By: #### L IPID, CMP #### [facility] [address] [address] [address] Nabli Che HDL NORMAL > or = 60 mg/dl - LOW CARDIOVASCULAR RISK <40 mg/dl - HIGH CARDIOVASCULAR RISK Normal [place] Comment on above: Performed By: #### L IPID, CMP #### [facility] [address] [address] [address] Nabil Che LDL CALC NORMAL SEE BELOW Normal [facility] Comment on above: Result Comment: <100 mg/dl OPTIMAL 100 - 129 mg/dl NEAR OR ABOVE OPTIMAL 130 - 159 mg/dl BORDERLINE HIGH 160 - 189 mg/dl HIGH >190 mg/dl VERY HIGH Performed By: #### L IPID, CMP #### [facility] [address] [address] [address] Nabil Che Triglyceride [Mass/Vol] 285 mg/dL Critically high <=150 [facility] Comment on above: Performed By: #### L IPID, CMP #### [facility] [address] [place] [address] Dr. Nabil Che VLDL CALC 57.0 mg/dL Normal [place] Comment on above: Performed By: #### L IPID, CMP #### [facility] [address] [address] [address] Nabil Che PROF 14(COMP METB)on 023 Albumin [Mass/Vol] 3.7 g/dL Normal 3.4-5.0 [facility] Comment on above: Performed By: #### L IPID, CMP #### [facility] [address] [address] [address] Nabil Che Albumin/Globulin [Mass ratio] 0.8 {ratio} Normal [place] Comment on above: Performed By: #### L IPID, CMP #### [facility] [address] [address] [address] Nabil Che ALP [Catalytic activity/Vol] 96 U/L Normal 46-116 [place] Comment on above: Performed By: #### L IPID, CMP #### [facility] [address] [place] [address] Dr. Nabil Che ALT [Catalytic activity/Vol] 42 U/L Normal 16-63 [place] Comment on above: Performed By: #### L IPID, CMP #### [facility] [address] [address] [address] Nabil Che Anion gap [Moles/Vol] 11.9 mmol/L Normal [place] Comment on above: Performed By: #### L IPID, CMP #### [facility] [address] [address] [address] Nabil Che AST [Catalytic activity/Vol] 23 U/L Normal 15-37 [place] Comment on above: Performed By: #### L IPID, CMP #### [facility] [address] [address] [address] Nabil Che Bilirubin [Mass/Vol] 0.5 mg/dL Normal 0.2-1.0 [place] Comment on above: Performed By: #### L IPID, CMP #### [facility] [address] [place] [address] Dr. Nabil Che Calcium [Mass/Vol] 9.1 mg/dL Normal 8.5-10.1 [facility] Comment on above: Performed By: #### L IPID, CMP #### [facility] [address] [place] [address] Dr. Nabil Che Chloride [Moles/Vol] 104 mmol/L Normal 98-107 [place] Comment on above: Performed By: #### L IPID, CMP #### [facility] [address] [place] [address] Dr. Nabil Che CO2 [Moles/Vol] 29.7 mmol/L Normal 21.0-32.0 [facility] Comment on above: Performed By: #### L IPID, CMP #### [facility] [address] [place] [address] Dr. Nabil Che Creatinine [Mass/Vol] 1.07 mg/dL Normal 0.70-1.30 [place] Comment on above: Performed By: #### L IPID, CMP #### [facility] [address] [place] [address] Dr. Nabil Che EGFR-AF ANGOLAN >60 Normal >=60 [facility] Comment on above: Performed By: #### L IPID, CMP #### [facility] [address] [place] [address] Dr. Nabil Che EGFR-NON AF ANGOLAN >60 Normal >=60 [place] Comment on above: Performed By: #### L IPID, CMP #### [facility] [address] [place] [address] Dr. Nabil Che Globulin (S) [Mass/Vol] 4.8 g/dL Normal [place] Comment on above: Performed By: #### L IPID, CMP #### [facility] [address] [place] [address] Dr. Nabil Che Glucose [Mass/Vol] 106 mg/dL Normal 74-106 [facility] Comment on above: Performed By: #### L IPID, CMP #### [facility] [address] [place] [address] Dr. Nabil Che Potassium [Moles/Vol] 4.6 mmol/L Normal 3.5-5.1 [place] Comment on above: Performed By: #### L IPID, CMP #### [facility] [address] [place] [address] Dr. Nabil Che Protein [Mass/Vol] 8.5 g/dL Critically high 6.4-8.2 [facility] Comment on above: Performed By: #### L IPID, CMP #### [facility] [address] [place] [address] Dr. Nabil Che Sodium [Moles/Vol] 141 mmol/L Normal 136-145 [facility] Comment on above: Performed By: #### L IPID, CMP #### [facility] [address] [place] [address] Dr. Nabil Che Urea nitrogen [Mass/Vol] 13.0 mg/dL Normal 7.0-18.0 [place] Comment on above: Performed By: #### L IPID, CMP #### [facility] [address] [place] [address] Dr. Nabil Che Urea nitrogen/Creatinine [Mass ratio] 12.1 mg/mg Normal [place] Comment on above: Performed By: #### L IPID, CMP #### [facility] [address] [place] [address] Dr. Nabil Che PROTIMEon 09-04-2022 INR Coag (PPP) [Relative time] 3.32 {INR} Normal [place] Comment on above: Performed By: #### P T #### [facility] [address] [place] [address] Dr. Nabil Che INR GUIDELINES SEE BELOW Normal [facility] Comment on above: Result Comment: LETY RED INR: 2.0 - 3.0 CONDITIONS NOT LISTED BELOW 2.5 - 3.5 FOR PROSTHETIC HEART VALVE REPLACEMENT 2.5 - 3.5 RECURRENT THROMBOSIS Performed By: #### P T #### [facility] [address] [place] [address] Dr. Nabil Che PT Coag (PPP) [Time] 32.9 s Critically high 9.0-11.6 [place] Comment on above: Performed By: #### P T #### [facility] [address] [place] [address] Dr. Nabil Che Lab Reportson 07-30-2022 Lab Reports [id number]:127 Normal [facility] PROTIMEon 07-27-2022 INR Coag (PPP) [Relative time] 2.82 {INR} Normal [place] Comment on above: Performed By: #### P T #### [facility] [address] [place] [address] Dr. Nabil Che INR GUIDELINES SEE BELOW Normal [facility] Comment on above: Result Comment: LETY RED INR: 2.0 - 3.0 CONDITIONS NOT LISTED BELOW 2.5 - 3.5 FOR PROSTHETIC HEART VALVE REPLACEMENT 2.5 - 3.5 RECURRENT THROMBOSIS Performed By: #### P T #### [facility] [address] [place] [address] Dr. Nabil Che PT Coag (PPP) [Time] 28.2 s Critically high 9.0-11.6 [place] Comment on above: Performed By: #### P T #### [facility] [address] [place] [address] Dr. Nabil Che CBC AUTO DIFFon 06-07-2022 BASO # 0.1 103/ul Normal 0.0-0.1 [place] Comment on above: Performed By: #### P SASC #### [facility] [address] [place] [address] Dr. Nabil Che Basophils/100 WBC (Bld) 1.1 % Normal 0.2-2.0 [place] Comment on above: Performed By: #### P SASC #### [facility] [address] [place] [address] Dr. Nabil Che EO # 0.4 103/ul Normal 0.0-0.7 [place] Comment on above: Performed By: #### P SASC #### [facility] [address] [place] [address] Dr. Nabil Che Eosinophils/100 WBC (Bld) 3.7 % Normal 0.9-7.0 [place] Comment on above: Performed By: #### P SASC #### [facility] [address] [place] [address] Dr. Nabil Che Erythrocyte distribution width (RBC) [Ratio] 13.2 % Normal 11.0-15.0 [place] Comment on above: Performed By: #### P SASC #### [facility] [address] [place] [address] Dr. Nabil Che Hematocrit (Bld) [Volume fraction] 49.2 % Normal 42.0-54.0 [place] Comment on above: Performed By: #### P SASC #### [facility] [address] [place] [address] Dr. Nabil Che Hemoglobin (Bld) [Mass/Vol] 17.3 g/dL Normal 14.0-18.0 [place] Comment on above: Performed By: #### P SASC #### [facility] [address] [place] [address] Dr. Nabil Che IG # 0.04 10e3/ul Critically high 0.00-0.03 [facility] Comment on above: Performed By: #### P SASC #### [facility] [address] [place] [address] Dr. Nabil Che IG % 0.4 % Normal 0.0-0.5 [place] Comment on above: Performed By: #### P SASC #### [facility] [address] [place] [address] Dr. Nabil Che LYMPH # 2.5 103/ul Normal 1.2-3.8 [place] Comment on above: Performed By: #### P SASC #### [facility] [address] [place] [address] Dr. Nabil Che Lymphocytes/100 WBC (Bld) 26.3 % Normal 20.5-60.0 [facility] Comment on above: Performed By: #### P SASC #### [facility] [address] [place] [address] Dr. Nabil Che MANUAL DIFF REQ NO Normal [facility] Comment on above: Performed By: #### P SASC #### [facility] [address] [place] [address] Dr. Nabil Che MCH (RBC) [Entitic mass] 31.2 pg Normal 25.9-34.0 [facility] Comment on above: Performed By: #### P SASC #### [facility] [address] [address] [address] Nabil Che MCHC (RBC) [Mass/Vol] 35.2 g/dL Normal 29.9-35.2 [facility] Comment on above: Performed By: #### P SASC #### [facility] [address] [address] [address] Nabil Che MCV (RBC) [Entitic vol] 88.6 fL Normal 80.0-94.0 [facility] Comment on above: Performed By: #### P SASC #### [facility] [address] [place] [address] Dr. Nabil Che MONO # 1.3 103/ul Critically high 0.3-0.8 [facility] Comment on above: Performed By: #### P SASC #### [facility] [address] [place] [address] Dr. Nabil Che Monocytes/100 WBC (Bld) 13.3 % Critically high 1.7-12.0 [facility] Comment on above: Performed By: #### P SASC #### [facility] [address] [place] [address] Dr. Nabil Che NEUT # 5.2 103/ul Normal 1.4-6.5 [facility] Comment on above: Performed By: #### P SASC #### [facility] [address] [place] [address] Dr. Nabil Che Neutrophils/100 WBC (Bld) 55.2 % Normal 43.0-75.0 [facility] Comment on above: Performed By: #### P SASC #### [facility] [address] [place] [address] Dr. Nabil Che Platelet mean volume (Bld) [Entitic vol] 10.4 fL Normal 9.5-13.5 [facility] Comment on above: Performed By: #### P SASC #### [facility] [id number] Nabil Che PLT 199 103/ul Normal 150-450 [facility] Comment on above: Performed By: #### P SASC #### [facility] [id number] Nabil Che RBC 5.55 106/ul Normal 4.70-6.10 [place] Comment on above: Performed By: #### P SASC #### [facility] [id number] Nabil Che WBC 9.4 103/ul Normal 4.0-11.0 [place] Comment on above: Performed By: #### P SASC #### [facility] [id number] Nabil Che Office Visit (Cardiology)on 06-07-2022 Follow-up visit Diagnoses/Problems Assessed Paroxysmal atrial fibrillation (427.31) (I48.0) PVC (premature ventricular contraction) (427.69) (I49.3) High risk medication use (V58.69) (Z79.899) High triglycerides (272.1) (E78.1) Stage 3a chronic kidney disease (585.3) (N18.31) TIA (transient ischemic attack) (435.9) (G45.9) Current every day smoker (305.1) (F17.200) 1 ppd Class 1 obesity with body mass index (BMI) of 33.0 to 33.9 in adult (278.00,V85.33) (E66.9,Z68.33) PAC (premature atrial contraction) (427.61) (I49.1) Orders Class 1 obesity with body mass index (BMI) of 33.0 to 33.9 in adult Healthy Weight Tips; Status:Complete - Retrospective Authorization; Done: [id number] Some eating tips that can help you lose weight.; Status:Complete - Retrospective Authorization; Done: [id number] Paroxysmal atrial fibrillation IO EKG Electrocardiogram- 12 Lead; Status:Complete; Done: [id number] SocHx: Current every day smoker You need to stop smoking. Though it is not easy, more than half of all adult smokers have quit. We encourage you to write down all the reasons you should quit smoking and set a quit date for yourself. Ask us how we can help. You may also call 3-168-IHFR-NOW for free resources and assistance.; Status:Complete - Retrospective Authorization; Done: [id number] Tobacco Use Screening; Status:Complete; Done: [id number] Patient Instructions Please bring all medicines, vitamins, and herbal supplements with you when you come to the office. Prescriptions will not be filled unless you are compliant with your follow up appointments or have a follow up appointment scheduled as per instruction of your physician. Refills should be requested at the time of your visit. Follow up in 6 months Chief Complaint ABHINAV FELIX is being seen for a month follow-up of. Patient is in the office for follow-up for the problems noted below. He retired last year and is trying to quit smoking but has not succeeded yet. He denies any palpitations since he started taking magnesium [id number]. He is on Multaq and his rhythm is sinus with PACs in bigeminal pattern. Has not had any recent lab data. He does have chronic kidney disease stage III which I explained to him in details today. His weight remains above target. Has had no bleeding complications on Coumadin. ASSESSMENT AND PLAN: 1. Paroxysmal atrial fibrillation, status post ablation twice with recurrences, currently on Multaq and Coumadin.. 2. Obesity. Encouraged more weight control with diet and exercise. 3. Active tobacco abuse. He was counseled again for tobacco cessation. Patient has no desire to quit 4. High-risk medication with Multaq and Coumadin, both of which have been well tolerated. Basic metabolic profile is ordered along with CBC 5. Remote history of TIA with no recurrences 6. High triglycerides for which she is on fish oil. We will follow lipid profile 7. Stage IIIa chronic kidney disease, advised patient to stay hydrated and will follow renal function in 6 months. 8. Atrial bigeminy, asymptomatic Surgical History Problems History of Catheter ablation History of Cholecystectomy History of Colonoscopy Current Meds Medication NameInstruction Cholestyramine 4 GM Oral PacketMIX THE CONTENTS OF 1 POWDER PACKET WITH 2 TO 6 OZ OF NONCARBONATED BEVERAGE AND DRINK 3 TIMES DAILY. Magnesium 250 MG Oral TabletTAKE 1 TABLET DAILY. Multaq 400 MG Oral TabletTAKE 1 TABLET TWICE DAILY, WITH MORNING AND EVENING MEAL Nebivolol HCl - 10 MG Oral TabletTake 1 tablet daily Delmar 3 1000 MG Oral CapsuleTAKE 2 CAPSULE Twice daily RABEprazole Sodium 20 MG Oral Tablet Delayed ReleaseTAKE 1 TABLET DAILY. Warfarin Sodium 5 MG Oral TabletAS DIRECTED BY DR GUDINO Allergies Medication Penicillins Allergy; Updated By: Loretta Terry; 04/19/2021 2:52:14 PM intolerance Pradaxa CAPS Adverse Reaction; Updated By: Loretta Terry; 04/19/2021 2:52:14 PM rectal bleed Social History Problems Alcohol use (V49.89) (Z78.9) 1-2 mixed drinks a week Caffeine use (V49.89) (Z78.9) 1 decaff coffee Current every day smoker (305.1) (F17.200) 1 ppd No illicit drug use Review of Systems Constitutional: not feeling tired. Cardiovascular: no intermittent leg claudication and as noted in HPI. Respiratory: no cough and no shortness of breath. Gastrointestinal: no change in bowel habits and no blood in stools. Integumentary: no skin rashes. Neurological: no seizures and no frequent falls. All other systems have been reviewed and are negative for complaint. Vitals Vital Signs Recorded: [id number] 09:01AM Heart Rate52, L Radial Narcfbyw910, LUE, Sitting Agyvjawco80, LUE, Sitting Height5 ft 11 in Kqhsco283 lb BMI Bpqqhyvnof51.75 kg/m2 BSA Calculated2.29 Tobacco Usea) Yes Patient encouraged to stop using tobacco productsYes PHQ-2 #1. Over the last 2 weeks have you felt down, depressed or hopeless? (If yes, answer PHQ-9 below)No PHQ-2 #2. Ove (more content not included)... Normal [employer] PROF CHEM 8 (BAS METB)on Anion gap [Moles/Vol] 12.2 mmol/L Normal [place] Comment on above: Performed By: #### P [facility] #### [facility] [address] [place], [place] [address] Dr. Nabil Che Calcium [Mass/Vol] 9.1 mg/dL Normal 8.5-10.1 [facility] Comment on above: Performed By: #### P [facility] #### [facility] [address] [place] [address] [address] Nabil Che Chloride [Moles/Vol] 103 mmol/L Normal 98-107 [place] Comment on above: Performed By: #### P [facility] #### [facility] [address] [place] [address] [address] Nabil Che CO2 [Moles/Vol] 29.0 mmol/L Normal 21.0-32.0 [facility] Comment on above: Performed By: #### P [facility] #### [facility] [address] [place] [address] [address] Nabil Che Creatinine [Mass/Vol] 1.01 mg/dL Normal 0.70-1.30 [place] Comment on above: Performed By: #### P [facility] #### [facility] [address] [place] [address] Dr. Nabil Che EGFR-AF ANGOLAN >60 Normal >=60 [facility] Comment on above: Performed By: #### P [facility] #### [facility] [address] [address] [address] Nabil Che EGFR-NON AF ANGOLAN >60 Normal >=60 [place] Comment on above: Performed By: #### P [facility] #### [facility] [address] [place] [address] [address] Nabil Che Glucose [Mass/Vol] 113 mg/dL Critically high 74-106 [facility] Comment on above: Performed By: #### P [facility] #### [facility] [address] [address] [address] Nabil Che Potassium [Moles/Vol] 4.2 mmol/L Normal 3.5-5.1 [place] Comment on above: Performed By: #### P [facility] #### [facility] [address] [place] [address] [address] Nabil Che Sodium [Moles/Vol] 140 mmol/L Normal 136-145 [facility] Comment on above: Performed By: #### P [facility] #### [facility] [address] [place] [address] [address] Nabil Che Urea nitrogen [Mass/Vol] 9.0 mg/dL Normal 7.0-18.0 [place] Comment on above: Performed By: #### P [facility] #### [facility] [address] [place] [address] [address] Nabil Che Urea nitrogen/Creatinine [Mass ratio] 8.9 mg/mg Normal [place] Comment on above: Performed By: #### P [facility] #### [facility] [address] [place] [address] [address] Nabil Che Tobacco Screening.on 023 Adult depression screening assessment No [facility] DO Work Phone: Tobacco use status CPHS a) Yes [facility] 250 DO Work Phone: Tobacco Screening. Yes [facility] -[place] 250 DO Work Phone: Lab Report[facility] 05-27-2022 Lab Reports [id number] 92#1.00CD:127 Normal [facility] PROTIMEon 05-24-2022 INR Coag (PPP) [Relative time] 2.87 {INR} Normal [place] Comment on above: Performed By: #### P T #### [facility] [address] [place] [address] Dr. Nabil Che INR GUIDELINES SEE BELOW Normal [facility] Comment on above: Result Comment: LETY RED INR: 2.0 - 3.0 CONDITIONS NOT LISTED BELOW 2.5 - 3.5 FOR PROSTHETIC HEART VALVE REPLACEMENT 2.5 - 3.5 RECURRENT THROMBOSIS Performed By: #### P T #### [facility] [address] [address] [address] Nabil Che PT Coag (PPP) [Time] 28.7 s Critically high 9.0-11.6 [place] Comment on above: Performed By: #### P T #### [facility] [address] [place] [address] [address] Nabil Che [facility] 04-29-2022 Lab Reports [id number] F3#1.00CD:127 Normal [facility] PROTIMEon 04-27-2022 INR Coag (PPP) [Relative time] 2.17 {INR} Normal [place] Comment on above: Performed By: #### P [facility] #### [facility] [address] [place] [address] Dr. Nabil Che INR GUIDELINES SEE BELOW Normal [facility] Comment on above: Result Comment: LETY RED INR: 2.0 - 3.0 CONDITIONS NOT LISTED BELOW 2.5 - 3.5 FOR PROSTHETIC HEART VALVE REPLACEMENT 2.5 - 3.5 RECURRENT THROMBOSIS Performed By: #### P [facility] #### [facility] [address] [place] [address] Dr. Nabil Che PT Coag (PPP) [Time] 22.3 s Critically high 9.0-11.6 [place] Comment on above: Performed By: #### P [facility] #### [facility] [address] [place] [address] Dr. Nabil Che [facility] 04-10-2022 Lab Reports [id number] DD#1.00CD:127 Normal [facility] PROTIMEon 04-07-2022 INR Coag (PPP) [Relative time] 1.09 {INR} Normal [place] Comment on above: Performed By: #### P T #### [facility] [address] [place] [address] Dr. Nabil Che INR GUIDELINES SEE BELOW Normal [facility] Comment on above: Result Comment: LETY RED INR: 2.0 - 3.0 CONDITIONS NOT LISTED BELOW 2.5 - 3.5 FOR PROSTHETIC HEART VALVE REPLACEMENT 2.5 - 3.5 RECURRENT THROMBOSIS Performed By: #### P T #### [facility] [address] [place] [address] Dr. Nabil Che PT Coag (PPP) [Time] 11.7 s Critically high 9.0-11.6 [place] Comment on above: Performed By: #### P T #### [facility] [address] [place] [address] [address] Nabil Che [facility] 03-28-2022 Lab Reports [id number] 1F#1.00CD:127 Normal [facility] PROTIMEon 03-27-2022 INR Coag (PPP) [Relative time] 1.11 {INR} Normal [place] Comment on above: Performed By: #### P [facility] #### [facility] [address] [address] [address] Nabil Che INR GUIDELINES SEE BELOW Normal [facility] Comment on above: Result Comment: LETY RED INR: 2.0 - 3.0 CONDITIONS NOT LISTED BELOW 2.5 - 3.5 FOR PROSTHETIC HEART VALVE REPLACEMENT 2.5 - 3.5 RECURRENT THROMBOSIS Performed By: #### P [facility] #### [facility] [address] [place] [address] Dr. Nabil Che PT Coag (PPP) [Time] 11.9 s Critically high 9.0-11.6 [place] Comment on above: Performed By: #### P [facility] #### [facility] [address] [place] [address] Dr. Nabil Che Lab Report[facility] 02-23-2022 Lab Reports [id number] #1.00CD:127 Normal [facility] PROTIMEon 02-22-2022 INR Coag (PPP) [Relative time] 1.84 {INR} Normal [place] Comment on above: Performed By: #### P T #### [facility] [address] [place] [address] Dr. Nabil Che INR GUIDELINES SEE BELOW Normal [facility] Comment on above: Result Comment: LETY RED INR: 2.0 - 3.0 CONDITIONS NOT LISTED BELOW 2.5 - 3.5 FOR PROSTHETIC HEART VALVE REPLACEMENT 2.5 - 3.5 RECURRENT THROMBOSIS Performed By: #### P T #### [facility] [address] [place] [address] Dr. Nabil Che PT Coag (PPP) [Time] 19.1 s Critically high 9.0-11.6 [place] Comment on above: Performed By: #### P T #### [facility] [address] [place] [address] [address] Nabil Che [facility] 01-26-2022 Lab Reports [id number] E8#1.00CD:127 Normal [facility] PROTIMEon 01-25-2022 INR Coag (PPP) [Relative time] 1.91 {INR} Normal [place] Comment on above: Performed By: #### P [facility] #### [facility] [address] [place] [address] Dr. Nabil Che INR GUIDELINES SEE BELOW Normal [facility] Comment on above: Result Comment: LETY RED INR: 2.0 - 3.0 CONDITIONS NOT LISTED BELOW 2.5 - 3.5 FOR PROSTHETIC HEART VALVE REPLACEMENT 2.5 - 3.5 RECURRENT THROMBOSIS Performed By: #### P [facility] #### [facility] [address] [place] [address] Dr. Nabil Che PT Coag (PPP) [Time] 19.8 s Critically high 9.0-11.6 [place] Comment on above: Performed By: #### P [facility] #### [facility] [address] [place] [address] Dr. Nabil Che Consultation Noteon 12-07-19 Consultation Note [id number] 8#1.00CD:127 Normal [facility] Tobacco Screening.on 022 Adult depression screening assessment No [facility] 250 DO Work Phone: Tobacco use status CPHS a) Yes [facility] 250 DO Work Phone: Tobacco Screening. Yes [facility] 250 DO Work Phone: [phone] [facility] 11-22-2021 Lab Reports [id number] 73#1.00CD:127 Normal [facility] CBC AUTO DIFFon 11-21-2021 BASO # 0.1 103/ul Normal 0.0-0.1 [place] Comment on above: Performed By: #### C BC #### [facility] [address] [place] [address] [address] Nabil Che Basophils/100 WBC (Bld) 0.8 % Normal 0.2-2.0 [place] Comment on above: Performed By: #### C BC #### [facility] [address] [place] [address] [address] Nabil Che EO # 0.3 103/ul Normal 0.0-0.7 [place] Comment on above: Performed By: #### C BC #### [facility] [address] [address] [address] Nabil Che Eosinophils/100 WBC (Bld) 3.2 % Normal 0.9-7.0 [place] Comment on above: Performed By: #### C BC #### [facility] [address] [address] [address] Nabil Che Erythrocyte distribution width (RBC) [Ratio] 13.1 % Normal 11.0-15.0 [place] Comment on above: Performed By: #### C BC #### [facility] [address] [address] [address] Nabil Che Hematocrit (Bld) [Volume fraction] 46.8 % Normal 42.0-54.0 [place] Comment on above: Performed By: #### C BC #### [facility] [address] [address] [address] Nabil Che Hemoglobin (Bld) [Mass/Vol] 16.4 g/dL Normal 14.0-18.0 [facility] Comment on above: Performed By: #### C BC #### [facility] [address] [address] [address] Nabil Che IG # 0.04 10e3/ul Critically high 0.00-0.03 [facility] Comment on above: Performed By: #### C BC #### [facility] [address] [place] [address] Dr. Nabil Che IG % 0.4 % Normal 0.0-0.5 [facility] Comment on above: Performed By: #### C BC #### [facility] [address] [place] [address] Dr. Nabil Che LYMPH # 2.8 103/ul Normal 1.2-3.8 [facility] Comment on above: Performed By: #### C BC #### [facility] [address] [place] [address] Dr. Nabil Che Lymphocytes/100 WBC (Bld) 29.6 % Normal 20.5-60.0 [facility] Comment on above: Performed By: #### C BC #### [facility] [address] [place] [address] Dr. Nabil Che MANUAL DIFF REQ NO Normal [facility] Comment on above: Performed By: #### C BC #### [facility] [address] [place] [address] Dr. Nabil Che MCH (RBC) [Entitic mass] 31.3 pg Normal 25.9-34.0 [facility] Comment on above: Performed By: #### C BC #### [facility] [address] [place] [address] Dr. Nabil Che MCHC (RBC) [Mass/Vol] 35.0 g/dL Normal 29.9-35.2 [facility] Comment on above: Performed By: #### C BC #### [facility] [address] [place] [address] Dr. Nabil Che MCV (RBC) [Entitic vol] 89.3 fL Normal 80.0-94.0 [facility] Comment on above: Performed By: #### C BC #### [facility] [address] [place] [address] Dr. Nabil Che MONO # 1.4 103/ul Critically high 0.3-0.8 [facility] Comment on above: Performed By: #### C BC #### [facility] [address] [place] [address] Dr. Nabil Che Monocytes/100 WBC (Bld) 14.5 % Critically high 1.7-12.0 [place] Comment on above: Performed By: #### C BC #### [facility] [address] [place] [address] Dr. Nabil Che NEUT # 4.9 103/ul Normal 1.4-6.5 [place] Comment on above: Performed By: #### C BC #### [facility] [address] [place] [address] Dr. Nabil Che Neutrophils/100 WBC (Bld) 51.5 % Normal 43.0-75.0 [place] Comment on above: Performed By: #### C BC #### [facility] [address] [place] [address] Dr. Nabil Che Platelet mean volume (Bld) [Entitic vol] 10.6 fL Normal 9.5-13.5 [place] Comment on above: Performed By: #### C BC #### [facility] [address] [place] [address] Dr. Nabil Che PLT 173 103/ul Normal 150-450 [facility] Comment on above: Performed By: #### C BC #### [facility] [address] [place] [address] Dr. Naibl Che RBC 5.24 106/ul Normal 4.70-6.10 [facility] Comment on above: Performed By: #### C BC #### [facility] [address] [place] [address] Dr. Nabil Che WBC 9.4 103/ul Normal 4.0-11.0 [facility] Comment on above: Performed By: #### C BC #### [facility] [address] [place] [address] Dr. Nabil Che PROF CHEM 8 (BAS METB)on Anion gap [Moles/Vol] 11.7 mmol/L Normal [place] Comment on above: Performed By: #### B MP #### [facility] [address] [place] [address] Dr. Nabil Che Calcium [Mass/Vol] 8.1 mg/dL Critically low 8.5-10.1 [facility] Comment on above: Performed By: #### B MP #### [facility] [address] [address] [address] Nabil Che Chloride [Moles/Vol] 103 mmol/L Normal 98-107 [place] Comment on above: Performed By: #### B MP #### [facility] [address] [address] [address] Nabil Che CO2 [Moles/Vol] 28.1 mmol/L Normal 21.0-32.0 [facility] Comment on above: Performed By: #### B MP #### [facility] [address] [place] [address] Dr. Nabil Che Creatinine [Mass/Vol] 1.34 mg/dL Critically high 0.70-1.30 [place] Comment on above: Performed By: #### B MP #### [facility] [address] [place] [address] [address] Nabil Che EGFR-AF ANGOLAN >60 Normal >=60 [facility] Comment on above: Performed By: #### B MP #### [facility] [address] [address] [address] Nabil Che EGFR-NON AF ANGOLAN 54 mL/min/1.73m2 Critically low >=60 [place] Comment on above: Performed By: #### B MP #### [facility] [address] [address] [address] Nabil Che Glucose [Mass/Vol] 87 mg/dL Normal 74-106 [facility] Comment on above: Performed By: #### B MP #### [facility] [address] [address] [address] Nabil Che Potassium [Moles/Vol] 4.8 mmol/L Normal 3.5-5.1 [place] Comment on above: Performed By: #### B MP #### [facility] [address] [address] [address] Nabil Che Sodium [Moles/Vol] 138 mmol/L Normal 136-145 [facility] Comment on above: Performed By: #### B MP #### [facility] [address] [address] [address] Nabil Che Urea nitrogen [Mass/Vol] 14.0 mg/dL Normal 7.0-18.0 [place] Comment on above: Performed By: #### B MP #### [facility] [address] [address] [address] Nabil Che Urea nitrogen/Creatinine [Mass ratio] 10.4 mg/mg Normal [place] Comment on above: Performed By: #### B MP #### [facility] [address] [address] [address] Nabil Che PROTIMEon 11-21-2021 INR Coag (PPP) [Relative time] 2.25 {INR} Normal [place] Comment on above: Performed By: #### P SASC #### [facility] [address] [place] [address] Dr. Nabil Che INR GUIDELINES SEE BELOW Normal [facility] Comment on above: Result Comment: LETY RED INR: 2.0 - 3.0 CONDITIONS NOT LISTED BELOW 2.5 - 3.5 FOR PROSTHETIC HEART VALVE REPLACEMENT 2.5 - 3.5 RECURRENT THROMBOSIS Performed By: #### P SASC #### [facility] [address] [place] [address] Dr. Nabil Che PT Coag (PPP) [Time] 23.0 s Critically high 9.0-11.6 [place] Comment on above: Performed By: #### P SASC #### [facility] [address] [place] [address] Dr. Nabil Che Lab Report[facility] 09-27-2021 Lab Reports [id number]#1.00CD:127 Normal [facility] Lab Reports 104 [id number] 9E#1.00CD:127 Normal [facility] Outside Hospital Correspo ndenceon 09-26-2021 Outside [facility] Correspondence [id number] CC#1.00CD:127 Normal [facility] PROTIMEon 09-26-2021 INR Coag (PPP) [Relative time] 1.70 {INR} Normal [place] Comment on above: Performed By: #### P SASC #### [facility] [address] [place] [address] Dr. Nabil Che INR GUIDELINES SEE BELOW Normal [facility] Comment on above: Result Comment: LETY RED INR: 2.0 - 3.0 CONDITIONS NOT LISTED BELOW 2.5 - 3.5 FOR PROSTHETIC HEART VALVE REPLACEMENT 2.5 - 3.5 RECURRENT THROMBOSIS Performed By: #### P SASC #### [facility] [address] [address] [address] Nabil Che PT Coag (PPP) [Time] 17.7 s Critically high 9.0-11.6 [place] Comment on above: Performed By: #### P SASC #### [facility] [address] [place] [address] Dr. Nabil Che Reminderson 09-26-2021 Reminders -- From: Jeancarlos GUDINO DO To: [facility] - Clinical; Sent: 09/21/2021 19:58:49 EDT Show up: 09/21/2021 19:59:00 EDT Subject: Ambulatory Reminder Due Date/Time: 09/22/2021 19:58:00 EDT MRI is negative Results: Date Result Type Result Name 09/21/2021 17:20 Radiology MRI Brain w/ + w/o Contrast LMOM for patient to return call. Patient returns call, message given and verbalized understanding. 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 CD:[id number] OYr8xEx+PGhlYWQ+PE1 KJPQdH12xkNPgkN2TU1 vAFS3DAXHLXXQOGP1AL U9ubWJ8CJvnJ1XbbrXm LdqxrHDfEA13GPa6KIN 5aRrfFApsxU8uwXSrB3 h8GzVoIK38mJ83QJltV EQjYuT0JbWvjogmnMDc W4kvDlHkfPTaYov+PHR hYmxlIHdpZHRoPScxMD LtJkSkyDrmTL2sBc5xF GVyLWNvbGxhcHNlOiBj w8qtGXDmCIpxJR2plXq qG1PxtUG3HKPkb2j7Ux 48dHI+LRQzWID4dRhpZ Tkvg610AuNmp5iyBGS1 wJEqSDykOJV0E73ld4X 9ASTyOSYiYYG8vCO0gE 3jxVoxemtsW8GqhGSgP sC0FHO4sWSbtU5scOrk zaettL7fCet+C30ESE4 QGPGFCC8YDzf2Z1SyNy wvdHI+CR30NXEhJY56j QIlvTRjv7fpfCe7HhFk HXVjGIX7cQadZKwro2E vWXFiD19nxXXgw0G3NW ArmTxyxUYmQiRvmLP5p M3lNVqgdvojw7fuyqlt Ysqpw6isnc76cR29W45 fCHlkQYKkICE1VSGlOU NjkRhpbd5nbM1kHr0+I Bmqz1qel9nzxCr9SgZf CKZaskOxyLjoJHZ1i8E aTt99Q0YmaOyia8XhBr v9ad57pAMrd6A5cMQ0E KszOYIfeI4tSAbdByX1 KSHoTmHskK78bNNlNTy jVq4zmJekkIrySL2eDT YnehgvPFYvxY4eJOMqw ZYktBrzQA4cVUXytvdd j684VcIyHNR0QBEjrET mT1SmbT7mWmLzYEVhBY JxN0KjjBShFHsxQ789D UycYxC4GZOkzsOuJ2Mk EUIxnAbkWcY3m2M2Nu9 Hp4ZmutuwZUF1JCjgUF R3PlDoViXkQeU1F5YmP ew6EMAjlEisTI8xZ3Yo XIVyvhefzvjylDC2QTV yOKFogQ53kVKtQItrEc 9ay6S2x981ZANaDYObi C42Wr5juTeyAELmrCKD pO1nlmaec2obobocKlC fRMEyISg7UKx7ZTDauM qmYlLhPAR8XaE0GJD5a ROjjM7nePklnbcveU5v Oyc+M61mwU7tRNY7FIG 8rxkpKUDvhiHlQT89FB 25F3QbTnwekKJfiSQ+P GTidgDioDbxVO8yLjBy u4fca7BrXDfvG2ZuONM jTXayPil7BIUqTSV1tD Z8xA2vYAUoEHpwu9D1c WW7H7LxnaCbxq2kd5rm TRYeETfbW53csKXde8H 4QYCuxJM3SPBldGciMr WjuN92Yke+PGNvbGdyb 1DzNbsii2hxn8pcvRj5 IjMwJSIgdmFsaWduPSJ 6d7KpYh36L20aAMwcYI RoPSIxNSUiIHZhbGlnb v8taK5wFl2+PGNvbCB3 jOD7fV9lHSQgMtR3AOx iO782UnInuTOwXykfl0 iyf0mdmSr6BeCiPQBkt dKxbJemGMC7a6RpUf61 Z78aFMfnBXPjRXGmXEB rYJKrpJrvvc6mlQ8yKy 8+YH9vp0ojeg82pU15g HI+QRPsJPP5aVqsLWqr WMOviE3zXBdxPrL4PRJ xLvImmL26iVGpETgyMx 0abWcsiBarMJ4rPAGxg dkdk850AtNte5yzHRBg hRDfMIuyDSB3X17si5R 6EDGhSYEaGJL2tIH3aT 1hbGlnbjogbGVmdDsgd eLxzTmmCLnlPHclU994 IHRvcDsnPlBhdGllbnQ rUhBkBNl4P7NcVgl1UN YppNipQC2sjWGaQQnvZ g2peKdssQywYW3mLHOi muzly508MyGzw7mkVSK wiBKyTYdrUYQ0C35fa1 N1DCFrPIKjJAT7hNW3m G1wlQvwplzaeASrbQle wtZzoDtzJOxzWJoeX72 6IHRvcDsnPkJpcnRoIE IygSQ3SA35PF22kUTgf 8D1eKK3Y1WmKYNdtwlb gkqdlKX9NRQsJYPtkG1 7Bc7reZieAc1qCFJcHB G0QQYdxPPoK5XtuK4hV cLuHJLjNKHiL1LdsRMn MNdiY344HQlhQmR3JIH jgxFaN0LaKNQweJzrVu Y2j0W6Fl1VF9N4TL85L F86xSUuh3O3nOK8Y7Qv VZYjmwhemcuotPC9YGU jOQLdgJ12Df7hqGjcMl 4eECLyVXR8QXKllWAlQ 2ScqV0bAnXdRWIvSQYz M7MreJRbUJxhU758HGt rCbH2WBAvthDrF3FcXZ UzsSutXtP4l3R4Bt3ZJ Cn2XS52XB24lJEem0Q3 yTY2F7DcGLHuxupahug viII8BLCcWNYszL25Hj 0bgDibBu7yOQSjBHA2D UGsrRCnR4XdxL4lVhTz MQHnWIEhT2UuiBPzGLq gK055FGrlBlM6EDRtcv XhB9SuBQIatYblUbC5u 8J7Jq0XLVAfFR30QFX7 lFJ5EO22NL96D7SyGux vdGFibGU+PHRhYmxlIH dpZHRoPScxMDAlJyBzd BymME7dFv2eYNSmMBLl nVhizWWfYeBwl0saSUF zAMqmDD9kzKzqI4TdoI B9ZKHuu8n3Bg75N27dN 3JvdXA+NFWjfFK0oDH4 oT9vDdAqMmJ9WXinT32 0LaEejCWoOfqml1bqc4 ybhPv3KvW8WOSvjeDue MghJNV2v7PyMt83V60e IHdpZHRoPSIxNSUiIHZ rtJjugm6ilQ6nQt8+PG MpgKG7dLV4hP3aAvLoF jX2EJsgP110SvQdeGYe Fduhb4rgs8bapTx9CsZ sQTMwhaVcmYgyHLC3p6 VpDk32X4KomOjnh0SsY yo6wj22tYJow8P9dGU7 R1CgITDzyltdrKUigGs oOQ3oFNFhevibLXOfqM 3qLNVhN7d7YiBzCeJ6Y JapI4QyfbJ2GMLngLNs XUcvQYQ4N66ur4K2BNA pQXMjJRE4kTZ9eT8ooJ lnbjogbGVmdDsgdmVyd VneRGaqYXhsV048TALr vLjvZRHkrE4rMUAcpJX kbTiwPP6sLTNzpwaaSe wEOwASNPHWHGUEPFO6E 6KvQef9IKQovLxnHE1e kVGdTEbzRa9ccGxbtSm cID8tWBIwpnlcIPSsxC 8cRBGphFPkfFbrXU9gB RMvuoeqw963KpGbKDZ1 LITeoCEeG5UgfG2hPuD hLQVjVTUxY0KdmMBgPU nbY395XCopGeO3TXMye pUqB8MbVJPxwDosRtA8 l8F8Sc6iHr9wNK0kUWB pLP03YR61nNIce5F1lH G1R8JnCWGbmiwgshbgp QM4JXUlPDTbbE79oKFq CEasWo7dm5R9q591ZVX zHJJqlV77Mo3ycIqbRS CbfSDYsM8jrtnxs8tsb efeYfZwSZGvGOh9OPl4 UKZksQjzNiXePKL8NdS 9GMM5dFEwfB5ftJebvm blcG2jEzk+NjAgWWVhc mZ4G1AnEzg6NWTkgCyf UJ5giDFmQFvvZe8noDi ezDzhOH7aHHRmhqqcTC OmvO6tQMIsqVLufBapU F5oWVAgqphnx869GvSf BEN6HSGkpPWdO7OfsE1 rDiDgYDMrUYAyR0VgtY GlNZshP432PYpyHbE4P DKwknRfW3NgZCShtMna JrE5u0Q6Gs0VMKcdEP9 0YH03jHWjr6M5wFN4L9 KyAMJcysrjmbtniEV7L JFpWATqkK89rNPmVNai Ec0bg9A4c470GIXvHYD zvT13Bb7bfAkxKOYycN AStK0jexock2kcocznC jKoITRrJEc0QDb7AULw kRflQuHvKKF2NnG3LWM 4gGQjsL4gjJybfdqpqS 9wOyc+E5H6oQC8hEUee DwvdGQ+SL99ai40T2Cv CujbCgv1ZWWzLDL0oLJ 1tE7lTFKeXCqkt9S1fV H3A1BxyjPmrk6ch5yrC JJhQRobE62srTCgl7R9 UXCshFL6QJHiyHijXrK lgW71Jxv+PGNvbGdyb3 KqRdppr7uaa7ddqCm7K jMwJSIgdmFsaWduPSJ0 a9BsFp95E55mAMyzGBI oPSIzMCUiIHZhbGlnbj 3ouH0tWy4+IKFqoKS9n SP9qQ9lDkEkOeP9FMrg I673EdCpbDXtZbkpl3y hg4tgpAk8ZlAfYIFmma KmxRpxHHC7a3LyQp48E 4CqoCmaj9IqLya4ag71 wFOcd5B6nPV9P0CnKQT tdddwqAOjtKpuJR6dPQ JjvsyrIDNzbG8aYABjT 4u2RdRgAxD3MHibU5Cz iuK5LCTnyVKhMZNapAF GfR5acsmya7ixyrzqJm WzSLReBLb2IWk7GNPff RnbJrGoQVO8DcB7FFB4 dJSesZ5edSzcookrbO0 wOyc+KPa5v0hcdWIwVV 6qfQY4SR35DJ91iQUhs 3G2cLD8I3YoYUFrvumn krswiWY1CLTeUDSbkL7 5Rp8veVwdXh1nUSJuXH R5ORYxuRTgE6WwhI4oJ oQnXMSjBKEdA2QtfWFt AScgB990IZnqOqS1CLE imsPxZ5MpDJWimGyiBj P4t5T6Kv1HEE87DX96B N81vBDxx7E8aGR1J2Aw BHKykhjrrbphlPD2SLY yTIWvmS92Vp2luYhyBd 9pYNLuDHV4NRNjzOThU 3UdyA7lDiIgLFBmZUAk M2HnnXOsAQbbI297IJu iDnB2BWAigaMvR0OxMN AemNsiPwJ7o9L8Ak7GE y05JG06UH36wEYai6A4 mCR4L3EaUFPxaqkwklx [id number] RNdkGBxJ6JtgH6rEtCw DHEzWGIvW6BxjZGqEGk hA878WJxaNgD5YDXijp XfJ1CvVQGbwFngIzB4q 7C9Tq3CSKcqftm9Q5Pe PjwvdHI+IL86ESYgUE3 5gLPovLTyc6zdjWn5Cv KbKPWuKPI2bOarZSrgv 0RfWBVbN57raMAap7M2 IGNv (more content not included)... Normal [facility] MRI Brain w/ + w/o Contrasto n 09-21-2021 MRI Brain w/ + w/o Contrast Exam Date/Time: 09/16/2021 15:59 EDT Reason for Exam: DIZZINESS AND GIDDINESS;Hearing loss Report IMPRESSION: NEGATIVE HEAD AND INTERNAL AUDITORY CANAL MRI. EXAM: MRI Brain w/ + w/o Contrast DATE: 09/16/2021 CLINICAL HISTORY: Hearing loss, DIZZINESS AND GIDDINESS. COMPARISON: 01/03/2012 TECHNIQUE: Multiplanar MR imaging of the head and internal auditory canals was performed before and after intravenous administration of approximately 20 mL of MultiHance gadolinium contrast. FINDINGS: There is no infarct, intracranial hemorrhage, mass effect, midline shift, extra-axial collection, abnormal enhancement, or evidence of hydrocephalus. There is no significant atrophy, or white matter changes, for age. Both internal auditory canals, auditory and vestibular organs, mastoid air cells, middle ear cavities, petrous apices, and brainstem structures are unremarkable. FINAL REPORT Dictated: 09/21/2021 5:17 pm Salas Holder MD Signed (Electronic Signature): 09/21/2021 5:17 pm Signed by: Salas Holder MD Transcribed by: ERIC Technologist: JUDE Technical Comments MultiHance Contrast amount in ml's: 20 Normal [facility] Consent for Treatmenton 05 Consent for Treatment [id number] BD#[id number]:127 Normal [facility] RAD - MRI Screening Formon 0 09-16-2021 RAD - MRI Screening Form [id number] 07#[id number]:127 Normal [facility] Ambulatory Visit Summaryon 0 09-09-2021 Ambulatory Visit Summary ABHINAV FELIX :1960 Visit Date:09/09/2021 Ambulatory Visit Instructions Your Diagnosis Preventative health care Trigeminal neuralgia Dizziness Hearing loss on right Your Care Team Attending Physician - Jeancarlos GUDINO DO Primary Care Physician - TERESE DO, Jeancarlos S This Is Your Medications List cholestyramine (Questran 4 g/9 g oral powder) dronedarone (Multaq 400 mg Tab) magnesium oxide (magnesium oxide 400 mg Tab) nebivolol (Bystolic 10 mg Tab) rabeprazole (Aciphex 20 mg Tab-EC) warfarin (warfarin 5 mg Tab) Discharge Vitals Temperature (Temporal Artery) 36.4 ?C Heart Rate (Peripheral) 60 Blood Pressure 122/74 Height 180.3 cm Height 180.3 cm Weight 106.7 kg Weight 106.7 kg BMI 32.82 What to do next You Need to Schedule the Following Appointments Follow Up with Jeancarlos GUDINO DO, FAM When: In 1 year Where: [address] [place] [address]- You Need to Complete the Following MRI Brain w/o Contrast, 09/09/21, Routine, Order for Future Visit, Transport Mode: Ambulatory, Reason: Headache, No, No, Dizziness Normal Trigeminal neuralgia, Need IAC evaluation, pp_set_radiology_ subspecialty, Faraz Horton\.br\ Medications\.br\ What How Much When Instructions\.br\ Unchanged cholestyramine (Questran 4 g/ 9 g oral powder) 1 Packets By Mouth 2 times a day\.br\ Unchanged dronedarone (Multaq 400 mg Tab) 1 Tablets By Mouth 2 times a day\.br\ Unchanged magnesium oxide (magnesium oxide 400 mg Tab) TAKE ONE TABLET BY MOUTH DAILY \.br\ Unchanged nebivolol (Bystolic 10 mg Tab) 1 Tablets By Mouth Every day\.br\ Unchanged rabeprazole (Aciphex 20 mg Tab-EC) 1 Tablets By Mouth Every day\.br\ Unchanged warfarin (warfarin 5 mg Tab) See instructions Take 1 tablet sunday, , sunday, sunday, and 1.5 tablets(7.5 MG) Sunday, sunday, and sunday \.br\ Allergies\.br\ Pradaxa (Rectal bleeding, Epistaxis, Incontinence)\.br \ penicillins\.br\ Problems\.br\ Ongoing - Any problem that you are currently receiving treatment for.\.br\ Dizziness\.br\ Encounter for monitoring Coumadin therapy\.br\ Hearing loss on right\.br\ Preventative health care\.br\ Screening for malignant neoplasm of prostate\.br\ Trigeminal neuralgia\.br\ Vasovagal attack\.br\ \.br\ [facility] Medicine Office/Clini c Noteon 09-09-2021 Family Medicine Office/Clinic Note Chief Complaint Yearly Follow Up HPI Staff Abhinav is a 61 year old male who presents with for yearly follow up. He has a chronic history of AFIB. He monitors his BP at home on occasion and reports it is always WNL. BP today was 122/74. Patient denies chest pain, palpitations, SOB, HILL, lightheadedness, dizziness, visual changes, epistaxis, peripheral edema or postural changes. C/O headaches. Patient is currently taking Multaq 400mg BID and Bystolic 10mg once daily, as directed without adverse reactions. He see's cardiology, (Dr. Mendenhall) twice yearly. He is anticoagulated, taking warfarin as directed. States he has his labs drawn monthly at [facility], but no results are documented or filed in the chart. Also takes Aciphex 20mg once daily. States this is still working well for him. Labs completed at [facility] on 09/05/21. States he has had a colonoscopy within the past [address] Estes ([facility]). History of Present Illness I have reviewed and verified the staff HPI to be accurate for this encounter. Review of Systems PHQ Score Initial Depression Screen Score: 0 Constitutional: no fever, no chills, no sweats, no weakness Respiratory: no shortness of breath, no cough, no orthopnea, no wheezing Cardiovascular: no chest pain, no palpitations, no edema Additional ROS info: Except as noted in the above Review of Systems and in the History of Present Illness all other systems have been reviewed and are negative or noncontributory. Physical Exam Vitals & Measurements T: 36.4 ?C(Temporal Artery) HR: 60(Peripheral) BP: 122/74 SpO2: 95% HT: 180.3 cm HT: 180.3 cm WT: 106.7 kg WT: 106.7 kg BMI: 32.82 General: alert, no acute distress Skin: warm, dry Head: no trauma, normocephalic Neck: Trachea midline, no adenopathy, no tenderness Eye: normal conjunctiva, sclera clear ENMT: TM's clear, oral mucosa moist, no pharyngeal erythema or exudate Cardiovascular: regular rate and rhythm, normal peripheral perfusion Respiratory: Lungs CTA, respirations non labored Chest wall: no deformity. Gastrointestinal: soft, non distended, no tenderness, no guarding. Back: No tenderness, Normal ROM, Normal alignment. Extremities: no deformity, no trauma Neurological: oriented x 4, LOC appropriate for age, CN II-XII intact, motor strength equal & normal bilaterally, sensation equal & normal bilaterally, speech normal Psychiatric: cooperative, affect appropriate for age, normal judgement, normal psychiatric thoughts. Assessment/Plan 1. Preventative health care (Z00.00: Encounter for general adult medical examination without abnormal findings) Labs will be reviewed when they return. 2. Trigeminal neuralgia (G50.0: Trigeminal neuralgia) Episodic symptoms. No worse and no better. Neurology thought it was more trigeminal inflammation. Monitor but with hearing loss should consider MRI. 3. Dizziness (R42: Dizziness and giddiness) With this and the hearing loss will check MRI. 4. Hearing loss on right (H91.91: Unspecified hearing loss, right ear) Orders: cyclobenzaprine, 10 mg = 1 tab(s), Oral, Bedtime, PRN for spasm, # 30 tab(s), Refills(s) 0, Pharmacy: [facility]/pharmacy #[id number], 180.3, cm, 05/20/20 15:18:00 EST, Height/Length Dosing, 108.4, kg, 05/20/20 15:18:00 EST, Weight Dosing Follow-up With When Contact Information Jeancarlos GUDINO DO, FAM In 1 year [address] [place] [address]- Additional Instructions: Problem List/Past Medical History Ongoing Dizziness Encounter for monitoring Coumadin therapy Hearing loss on right Preventative health care Screening for malignant neoplasm of prostate Trigeminal neuralgia Vasovagal attack Historical No qualifying data Medications Aciphex 20 mg Tab-EC, 20 mg= 1 tab(s), Oral, Daily, 3 refills Bystolic 10 mg Tab, 10 mg= 1 tab(s), Oral, Daily magnesium oxide 400 mg Tab Multaq 400 mg Tab, 400 mg= 1 tab(s), Oral, BID Questran 4 g/9 g oral powder, 1 packet(s), Oral, BID, 5 refills warfarin 5 mg Tab, See Instructions, 3 refills Allergies Pradaxa (Rectal bleeding, Epistaxis, Incontinence) penicillins Social History Alcohol Current, 1-2 times per week, 05/20/2020 Substance Abuse - Denies Substance Abuse, 05/20/2020 Tobacco 10 or more cigarettes (1/2 pack or more)/day in last 30 days Tobacco Use:. Never Smokeless Tobacco Use:. Cigarettes, Yes, 09/09/2021 Family History Family history is negative Immunizations Vaccine Date Status Comments influenza virus vaccine, inactivated - Not Given Patient Refuses influenza virus vaccine, inactivated 02/12/2013 Recorded Normal [facility] Comment on above: Result Comment: Elec tronically Signed By: Jeancarlos GUDINO DO\.br\Date and Time Signed: 09/09/21 10:19 EDT Lab Reportson 08-31-2021 Lab Reports [id number] F4#1.00CD:127 Normal [facility] Tobacco Screening.on 022 Tobacco use status CPHS a) Yes [facility] [address] DO Work Phone: Tobacco Screening. Yes -Merged with [facility] y 250 DO Work Phone: CBCon 02-11-2019 Erythrocyte distribution width (RBC) [Ratio] 12.9 % Normal 11.5 - 14.5 [facility] Comment on above: Performed By: #### C BC #### [address] [address] Hematocrit (Bld) [Volume fraction] 48.1 % Normal 41.0 - 52.0 [facility] Comment on above: Performed By: #### C BC #### [address] [address] Hemoglobin (Bld) [Mass/Vol] 16.7 g/dL Normal 13.5 - 17.5 [facility] Comment on above: Performed By: #### C BC #### [address] [address] MCHC (RBC) [Mass/Vol] 34.7 g/dL Normal 32.0 - 36.0 [facility] Comment on above: Performed By: #### C BC #### [address] [address] MCV (RBC) [Entitic vol] 91 fL Normal 80 - 100 [facility] Comment on above: Performed By: #### C BC #### [address] [address] Platelets (Bld) [#/Vol] 182 10*3/uL Normal 150 - 450 [facility] Comment on above: Performed By: #### C BC #### [address] [address] RBC (Bld) [#/Vol] 5.26 x10E12/L Normal 4.50 - 5.90 [facility] Comment on above: Performed By: #### C BC #### [address] [address] WBC (Bld) [#/Vol] 9.3 10*3/uL Normal 4.4 - 11.3 [facility] Comment on above: Performed By: #### C BC #### [address] [address] CREATININEon 02-11-2019 Creatinine [Mass/Vol] 0.87 mg/dL Normal 0.50 - 1.30 [facility] Comment on above: Performed By: #### C REAT #### [address] [address] Creatinine [Mass/Vol] mg/dL Normal >60 [facility] Comment on above: Result Comment: CALC ULATIONS OF ESTIMATED GFR ARE PERFORMED USING THE MDRD STUDY EQUATION FOR THE IDMS-TRACEABLE CREATININE METHODS. CLIN CHEM 2007;53:766-72 Performed By: #### C REAT #### [address] [address] ELECTROLYTE PANELon 02-12-20 19 Anion gap [Moles/Vol] 12 mmol/L Normal 10 - 20 [facility] Comment on above: Performed By: #### E LECT #### [address] [address] Chloride [Moles/Vol] 105 mmol/L Normal 98 - 107 [facility] Comment on above: Performed By: #### E LECT #### [address] [address] HCO3 (Bld) [Moles/Vol] 28 mmol/L Normal 21 - 32 [facility] Comment on above: Performed By: #### E LECT #### [address] [address] Potassium [Moles/Vol] 4.1 mmol/L Normal 3.5 - 5.3 [facility] Comment on above: Performed By: #### E LECT #### [address] [address] Sodium [Moles/Vol] 141 mmol/L Normal 136 - 145 [facility] Comment on above: Performed By: #### E LECT #### [address] [address] UREA NITROGENon 02-11-2019 Urea nitrogen [Mass/Vol] 12 mg/dL Normal 6 - 23 [facility] Comment on above: Performed By: #### U BELÉN #### [address] [address] ALT (SGPT)on 12-26-2017 ALT enzyme act/vol 18 U/L Normal 10-52 [facility] Comment on above: Performed By: #### 1 [id number] ####[facility] [address] [place] [address] AST (SGOT)on 12-26-2017 AST enzyme act/vol 20 U/L Normal 13-39 [facility] Comment on above: Performed By: #### 1 [id number] ####[facility] [address] [place] [address] CBCon 12-26-2017 Erythrocyte distribution width Auto Ratio (RBC) 13.4 % Normal 12.0-15.4 [facility] Comment on above: Performed By: #### 2 [id number] ####[facility] [address] [place] [address] Hematocrit Auto Volume Fraction (Bld) 48.6 % Normal 38.4-54.9 [facility] Comment on above: Performed By: #### 2 [id number] ####[facility] [address] [place] [address] Hemoglobin mass conc (Bld) 16.3 g/dL Normal 12.8-17.7 [facility] Comment on above: Performed By: #### 2 [id number] ####[facility] [address] [place] [address] MCH Auto Entitic mass (RBC) 31.0 pg Normal 27.5-32.9 [facility] Comment on above: Performed By: #### 2 [id number] ####[facility] [address] [place] [address] MCHC Auto mass conc (RBC) 33.5 g/dL Normal 30.5-35.4 [facility] Comment on above: Performed By: #### 2 [id number] ####[facility] [address] [place] [address] MCV Auto Entitic volume (RBC) 92.6 fL Normal 83.3-98.2 [facility] Comment on above: Performed By: #### 2 [id number] ####[facility] [address] [place] [address] NRBC Absolute 0.00 10*3/uL Normal [facility] Comment on above: Performed By: #### 2 150193 ####[facility] [address] [place] [address] NRBC Automated 0.0 /100{WBCs} Normal [facility] Comment on above: Performed By: #### 2 [id number] ####[facility] [address] [place] [address] Platelet mean volume Auto Entitic volume (Bld) 12.0 fL Normal 9.9-12.1 [facility] Comment on above: Performed By: #### 2 [id number] ####[facility] [address] [place] [address] Platelets Auto #/vol (Bld) 156 10*3/uL Normal 155-404 [facility] Comment on above: Performed By: #### 2 [id number] ####[facility] [address] [place] [address] RBC Auto #/vol (Bld) 5.25 10*6/uL Normal 4.08-6.37 [facility] Comment on above: Performed By: #### 2 [id number] ####[address] [place] [address] RDW SD 45.5 fL Normal 39.3-48.6 [facility] Comment on above: Performed By: #### 2 [id number] ####[address] [place] [address] WBC Auto #/vol (Bld) 7.2 10*3/uL Normal 4.2-11.0 [facility] Comment on above: Performed By: #### 2 823808 ####[address] [address] Creatinineon 12-26-2017 Creatinine mass conc 0.92 mg/dL Normal 0.50-1.30 [facility] Comment on above: Performed By: #### 1 [id number] ####[address] [address] GFR/1.73 sq M.predicted MDRD vol rate/area mL/min/{1.73_m2} Normal [facility] Comment on above: Result Comment: Inte rpretation for Chronic Kidney Disease:Stages 1&2 >60 Healthy or potential kidney damage.Mild decrease of GFR.Stage 3 30-59 Moderate decrease of GFR.Stage 4 15-29 Severe decrease of GFR.Stage 5 <15 Kidney failure or on dialysis. Performed By: #### 1 [id number] ####[facility] [address] [place] [address] Electrolyte Panelon 12-27-19 18 Anion gap 3 molar conc 9 mmol/L Low 10-20 [facility] Comment on above: Performed By: #### 1 [id number] ####[facility] [address] [place] [address] Chloride molar conc 106 mmol/L Normal 98-107 [facility] Comment on above: Performed By: #### 1 [id number] ####[facility] [address] [facility] [place] [address] HCO3 molar conc (Bld) 29 mmol/L Normal 21-32 [facility] Comment on above: Performed By: #### 1 [id number] ####[facility] [address] [facility] [place] [address] Potassium molar conc 4.1 mmol/L Normal 3.5-5.1 [facility] Comment on above: Performed By: #### 1 [id number] ####[facility] [address] [place] [place] [address] Sodium molar conc 140 mmol/L Normal 136-145 [facility] Comment on above: Performed By: #### 1 [id number] ####[facility] [address] [place] [place] [address] Urea Nitrogenon 12-26-2017 Urea nitrogen mass conc 10 mg/dL Normal 6-23 [facility] Comment on above: Performed By: #### 1 [id number] ####[facility] [address] [place] [place] [address] Vital Signs Date Time Vital Sign Value Performing Clinician Facility 02-13-2023 13:30-0400 Body height 181.61 cm Augustoalverto Porter Other [facility] Other 02-13-2023 13:30-0400 Body mass index (BMI) [Ratio] 32.73 kg/m2 Uche Porter Other [facility] Other 02-13-2023 13:30-0400 Body temperature 97.1 [degF] Uche Porter Other [facility] Other 02-13-2023 13:30-0400 Body weight 107.96 kg Uche Porter Other [facility] Other 02-13-2023 13:30-0400 Diastolic blood pressure 76 mm[Hg] Uche Porter Other [facility] Other 02-13-2023 13:30-0400 Respiratory rate 20 /min Uche Porter Other [facility] Other 02-13-2023 13:30-0400 SaO2% (BldA) [Mass fraction] 96 % Uche Porter Other [facility] Other 02-13-2023 13:30-0400 Systolic blood pressure 130 mm[Hg] Uche Porter Other [facility] Other 02-09-2023 10:45-0400 Body height 181.61 cm Regi Leong Other [facility] Other 02-09-2023 10:45-0400 Body mass index (BMI) [Ratio] 32.92 kg/m2 Regi Leong Other [facility] Other 02-09-2023 10:45-0400 Body weight 108.59 kg Regi Leong Other [facility] Other 02-09-2023 10:45-0400 Diastolic blood pressure 72 mm[Hg] Regi Leong Other [facility] Other 02-09-2023 10:45-0400 SaO2% (BldA) [Mass fraction] 97 % Regi Leong Other [facility] Other 02-09-2023 10:45-0400 Systolic blood pressure 118 mm[Hg] Regi Leong Other [facility] Other 12-12-2022 09:59-0400 Body height 180.34 cm Regi Leong Work Phone: [facility] 250 DO Work Phone: 12-12-2022 09:59-0400 Body mass index (BMI) [Ratio] 33.19 kg/m2 Regi Leong Work Phone: [facility] [address] DO Work Phone: 12-12-2022 09:59-0400 Body surface area Derived from formula 2.27 m2 Regi Leong Work Phone: [facility] [address] DO Work Phone: 12-12-2022 09:59-0400 Body weight 107.96 kg Regi Leong Work Phone: [facility] 250 DO Work Phone: 12-12-2022 09:59-0400 Diastolic blood pressure 64 mm[Hg] Regi Leong Work Phone: [facility] [address] DO Work Phone: 12-12-2022 09:59-0400 Heart rate 66 /min Regi Leong Work Phone: [facility] 250 DO Work Phone: 12-12-2022 09:59-0400 Systolic blood pressure 110 mm[Hg] Regi Leong Work Phone: [facility] [address] DO Work Phone: 11-07-2022 15:00-0400 Body height 181.61 cm Uche Porter Other [facility] Other 11-07-2022 15:00-0400 Body mass index (BMI) [Ratio] 33.14 kg/m2 Uche Porter Other [facility] Other 11-07-2022 15:00-0400 Body temperature 97.8 [degF] Uche Porter Other [facility] Other 11-07-2022 15:00-0400 Body weight 109.32 kg Uche Porter Other [facility] Other 11-07-2022 15:00-0400 Diastolic blood pressure 81 mm[Hg] Uche Porter Other [facility] Other 11-07-2022 15:00-0400 Respiratory rate 20 /min Uche Porter Other [facility] Other 11-07-2022 15:00-0400 SaO2% (BldA) [Mass fraction] 96 % Uche Porter Other [facility] Other 11-07-2022 15:00-0400 Systolic blood pressure 128 mm[Hg] Uche Porter Other [facility] Other 09-04-2022 10:00-0400 Body height 181.61 cm Regi Leong Other [facility] Other 09-04-2022 10:00-0400 Body mass index (BMI) [Ratio] 33.97 kg/m2 Regi Leong Other [facility] Other 09-04-2022 10:00-0400 Body weight 112.04 kg Regi Leong Other [facility] Other 09-04-2022 10:00-0400 Diastolic blood pressure 72 mm[Hg] Regi Leong Other [facility] Other 09-04-2022 10:00-0400 SaO2% (BldA) [Mass fraction] 92 % Regi Leong Other [facility] Other 09-04-2022 10:00-0400 Systolic blood pressure 118 mm[Hg] Regi Leong Other [facility] Other 06-07-2022 09:01-0500 Body height 180.34 cm Jeancarlos Gudino Work Phone: [facility] DO Work Phone: 06-07-2022 09:01-0500 Body mass index (BMI) [Ratio] 33.75 kg/m2 Jeancarlos Gudino Work Phone: [facility]Vysldagioo-Tghrjh [address] 250 DO Work Phone: 06-07-2022 09:01-0500 Body surface area Derived from formula 2.29 m2 Jeancarlos Gudino Work Phone: NS[facility]Xqhrsfbiju-Lszpia [address] DO Work Phone: 06-07-2022 09:01-0500 Body weight 109.77 kg Jeancarlos Gudino Work Phone: LB-Iknuiwbwih-Bongbl [address] DO Work Phone: 06-07-2022 09:01-0500 Diastolic blood pressure 82 mm[Hg] Jeancarlos Gudino Work Phone: YS-Pwgckfsexr-Qcwwdj [address] 250 DO Work Phone: 06-07-2022 09:01-0500 Heart rate 52 /min Jeancralos Gudino Work Phone: ZD-Pzeslrgswm-Bldlcy [address] DO Work Phone: 06-07-2022 09:01-0500 Systolic blood pressure 130 mm[Hg] Jeancarlos Gudino Work Phone: ND-Clrimrszis-Pbsgof [address] DO Work Phone: 12-06-2021 09:15-0400 Body height 180.34 cm Jeancarlos Gudino Work Phone: [facility] 250 DO Work Phone: 12-06-2021 09:15-0400 Body mass index (BMI) [Ratio] 32.78 kg/m2 Jeancarlos Gudino Work Phone: [facility] 250 DO Work Phone: 12-06-2021 09:15-0400 Body surface area Derived from formula 2.26 m2 Jeancarlos Gudino Work Phone: [facility] [address] DO Work Phone: 12-06-2021 09:15-0400 Body weight 106.6 kg Jeancarlos Gudino Work Phone: [facility] 250 DO Work Phone: 12-06-2021 09:15-0400 Diastolic blood pressure 70 mm[Hg] Jeancralos Gudino Work Phone: [facility] [address] DO Work Phone: 12-06-2021 09:15-0400 Heart rate 50 /min Jeancarlos Gudino Work Phone: [facility] [address] DO Work Phone: 12-06-2021 09:15-0400 Systolic blood pressure 136 mm[Hg] Jeancarlos Gudino Work Phone: [facility] [address] DO Work Phone: 09-09-2021 09:34-0400 Blood Pressure Location Jeancarlos GUDINO [facility] 09-09-2021 09:34-0400 Body temperature 97.52 [degF] Jeancarlos GUDINO [facility] 09-09-2021 09:34-0400 Diastolic blood pressure 74 mm[Hg] Jeancarlos GUDINO [facility] 09-09-2021 09:34-0400 Heart rate 60 /min Jeancarlos GUDINO [facility] 09-09-2021 09:34-0400 SaO2% (BldA) [Mass fraction] 95 % Jeancarlos TERESE [facility] 09-09-2021 09:34-0400 Systolic blood pressure 122 mm[Hg] Jeancarlos GUDINO [facility] 05-24-2021 15:13-0500 Body height 180.34 cm Jeancarlos Gudino Work Phone: [facility] [address] DO Work Phone: 05-24-2021 15:13-0500 Body mass index (BMI) [Ratio] 32.36 kg/m2 Jeancarlos Gudino Work Phone: [facility] [address] DO Work Phone: 05-24-2021 15:13-0500 Body surface area Derived from formula 2.25 m2 Jeancarlos Gudino Work Phone: [facility] [address] DO Work Phone: 05-24-2021 15:13-0500 Body weight 105.24 kg Jeancarlos Gudino Work Phone: [facility] [address] DO Work Phone: 05-24-2021 15:13-0500 Diastolic blood pressure 78 mm[Hg] Jeancarlos Gudino Work Phone: [facility] [address] DO Work Phone: 05-24-2021 15:13-0500 Heart rate 61 /min Jeancarlos Gudino Work Phone: [facility] [address] DO Work Phone: 05-24-2021 15:130500 Systolic blood pressure 119 mm[Hg] Jeancarlos Gudino Work Phone: [facility] [address] DO Work Phone: Encounters Encounter Date Encounter Type Care Provider Facility Start: 08-07-2023 End: 08-07-2023 ambulatory Regi Leong Facility:[facility] Start: 08-07-2023 End: 08-07-2023 ambulatory MD Regi Leong Work Phone: [facility] Work Phone: Start: 08-07-2023 End: 08-07-2023 Patient encounter procedure MD Regi Leong Work Phone: [facility] [address] Work Phone: Start: 07-27-2023 Non-patient / Non-visit MD Maribel Leong Work Phone: [facility] Physician [facility] Work Phone: Start: 06-12-2023 Non-patient / Non-visit MD Maribel Leong Work Phone: [facility] Physician [facility] Work Phone: Start: 02-13-2023 End: 02-13-2023 ambulatory Kamal Chaban Other [facility] Other Start: 02-13-2023 Office outpatient vi sit 25 minutes Kamal German [facility] Start: 02-09-2023 End: 02-09-2023 ambulatory Regi Leong Other [facility] Other Start: 02-09-2023 Office outpatient vi sit 15 minutes Regi Leong [facility] Start: 02-01-2023 End: 02-01-2023 ambulatory Kamal Changuyễn Facility:[facility] Start: 01-05-2023 Telephone encounter Regi garcia Work Phone: [facility] DO Work Phone: Start: 12-12-2022 Office outpatient vi sit 25 minutes Regi Leong Work Phone: [facility] DO Work Phone: Start: 12-12-[address] [facility] Start: 11-07-2022 End: 11-07-2022 [facility] Start: 11-07-2022 Office outpatient vi sit [facility] Start: 10-30-2022 End: 10-30-2022 ambulatory Regi Leong Other [facility] Other Start: 10-30-2022 Telephone encounter Regi Leong [facility] Start: 10-13-2022 End: 10-13-2022 ambulatory Augustoalverto Catnguyễn Facility:[facility] Start: 09-29-2022 End: 09-29-2022 ambulatory Regi Leong Other [facility] Other Start: 09-29-2022 [address] Leong [facility] Start: 09-21-2022 End: 09-21-2022 ambulatory Regi Leong Other [facility] Other Start: 09-21-2022 Telephone [address]i Leong [facility] Start: 09-04-2022 Encounter for genera l adult medical examination without abnormal findings Regi Leong [facility] Start: 09-04-2022 Initial preventive medicine new patient 40-[address]yrs [address] [facility] Start: 09-04-2022 End: 09-05-[address] REGI LEONG [facility] Other Start: 07-27-2022 End: 07-28-[address] JEANCARLOS GUDINO Facility:[facility] Start: 06-07-2022 End: 06-08-[address] CARLY GAMBLE Facility:[facility] Start: 06-07-2022 Office outpatient vi sit 25 minutes Jeancarlos Gudino Work Phone: [facility] DO Work Phone: Start: 06-07-[address] Jeancarlos Larios [facility] Facility:[id number] Start: 05-24-2022 End: 05-25-[address] JEANCARLOS GUDINO Facility:[facility] Start: 04-27-2022 End: 04-28-[address] JEANCARLOS GUDINO Facility:[facility] Start: 04-07-2022 End: 04-08-[address] JEANCARLOS GUDINO Facility:[facility] Start: 03-27-2022 End: 03-28-[address] JEANCARLOS GUDINO Facility:[facility] Start: 02-22-2022 End: 02-23-[address] JEANCARLOS GUDINO Facility:[facility] Start: 01-25-2022 End: 01-26-[address] JEANCARLOS GUDINO Facility:[facility] Start: 12-06-2021 Office outpatient vi sit 25 minutes Jeancarlos Gudino Work Phone: [facility] DO Work Phone: Start: 11-21-2021 End: 11-22-[address] JEANCARLOS GUDINO Facility: Start: 09-26-2021 End: 09-27-[address] JEANCARLOS GUDINO Facility: Start: 09-16-2021 End: 09-17-2021 ambulatory Jeancarlos GUDINO [facility] Start: 09-09-2021 End: 09-10-2021 ambulatory Jeancarlos GUDINO Facility:[facility] Start: 09-09-2021 End: 09-09-2021 Patient encounter procedure Jeancarlos GUDINO [facility] Start: 09-09-2021 End: 09-09-2021 Well adult monitoring check done Jeancarlos GUDINO [facility] Start: 05-24-2021 Office outpatient vi sit 25 minutes Jeancarlos Gudino Work Phone: [facility] DO Work Phone: Start: 03-11-2021 Patient encounter procedure Jeancarlos Gudino Work Phone: [facility] DO Work Phone: Start: 03-08-2021 Patient encounter procedure Jeancarlos Gudino Work Phone: [facility] [place] Work Phone: Start: 02-03-2021 Rx Renewal Jeancarlos Finney Gran t Work Phone: [facility] [place] Work Phone: Start: 12-26-2017 Patient encounter CARLY GAMBLE Fac ility:[id number] Start: 02-20-2017 End: 02-21-2017 Ambulatory DEFAULT PHYSICIAN Facility:[facility] Procedures Date Procedure Procedure Detail Performing Clinician Start: 08-07-2023 CT of chest without contrast MD Regi Leong Work Phone: Start: 09-04-[address] TEODORO GUDINO Comment on above: Performed By: #### P [facility] #### [facility] [address] [place] [address] Dr. Nabil Che Catheter ablation of arrhythmogenic focus Jeancarlos Gudino Work Phone: Cholecystectomy Jeancarlos duncan Work Phone: Colonoscopy Jeancarlos Gudino Work Phone: Plan of Treatment Date Care Activity Detail Author Start: 06-19-2023 FUV, Provider: Carly Gamble, Status: Pen, Time: 10:40 AM FUV, Provider: Carly Gamble, Status: Pen, Time: 10:40 AM [facility] DO Work Phone: Start: 12-12-2022 FUV, Provider: Carly Gamble, Status: Pen, Time: 9:50 AM FUV, Provider: Carly Gamble, Status: Pen, Time: 9:50 AM [facility] 250 DO Work Phone: Start: 09-11-2022 ambulatory Ambulatory Facility:[facility] Start: 06-07-2022 FUV, Provider: Carly Gamble, Status: Pen, Time: 9:10 AM FUV, Provider: Carly Gamble, Status: Pen, Time: 9:10 AM [facility] DO Work Phone: Start: 12-06-2021 FUV, Provider: Carly Gamble, Status: Pen, Time: 9:10 AM FUV, Provider: Carly Gamble, Status: Pen, Time: 9:10 AM -[facility] DO Work Phone: Start: 05-24-2021 FUV, Provider: Carly Gamble, Status: Pen, Time: 3:00 PM FUV, Provider: Carly Gamble, Status: Pen, Time: 3:00 PM -[facility] [place] Work Phone: Start: 03-11-2021 EVENT CARLITOS, Provider : YESSICA PETER [employer]ST 1,[id number], Status: Pen, Time: 10:30 AM EVENT CARLITOS, Provider: YESSICA PETER [employer] ASST 1,[id number], Status: Pen, Time: 10:30 AM [facility] [place] Work Phone: Immunizations Immunization Date Immunization Notes Care Provider Fa cili 01-21-2014 influenza virus vaccine, unspecified formulation Jeancarlos Gudino Work Phone: [facility] DO Work Phone: 02-12-2013 influenza virus vaccine, unspecified formulation Jeancarlos GUDINO [facility] [place] 04-23-2008 pneumococcal polysaccharide vaccine, 23 valzayra Gudino Work Phone: [facility] 250 DO Work Phone: 04-23-2003 pneumococcal polysaccharide vaccine, 23 valzayra Gudino Work Phone: [facility] 250 DO Work Phone: influenza virus vaccine, unspecified formulation Jeancarlos Gudino Work Phone: [facility] 250 DO Work Phone: Comment on above: 2012 2011 2009 2008 NEGATED: Highlighted row has not occurred!05-20-2020 influenza virus vaccine, unspecified formulation Jeancarlos GUDINO [facility] [place] Payers Date Payer Category Payer Self-pay 1960 Unknown [id number] 1960 Unknown [id number] [id number] 1961 Unknown [id number] 2.16.840.1.643038.3.579.2.727 1961 Unknown [id number] 2.16.840.1.848226.3.579.2.593 1961 Unknown [id number] 2.16.840.1.845363.3.579.2.593 1961 Unknown [id number] 2.16.840.1.312969.3.579.2.593 1961 Unknown [id number] 2.16.840.1.581767.3.579.2.593 1961 Unknown [id number] 2.16.840.1.098182.3.579.2.593 1961 Unknown [id number] 2.16.840.1.809436.3.579.2.593 1961 Unknown [id number] 2.16.840.1.252603.3.579.2.593 1961 Unknown [id number] 2.16.840.1.073287.3.579.2.593 1961 Unknown [id number] 2.16.840.1.518822.3.579.2.593 1961 Unknown [id number] 2.16.840.1.012557.3.579.2.593 1961 Unknown [id number] 2.16.840.1.944109.3.579.2.593 1961 Unknown [id number] 2.16.840.1.175826.3.579.2.593 1961 Unknown [id number] 2.16.840.1.620841.3.579.2.356 1961 Unknown [id number] 2.16.840.1.482861.3.579.2.356 1959 [employer] ( and others) [id number] Unknown Unknown [id number] 2.16.840.1.875885.3.579.2.531 Unknown [id number] 2.16.840.1.734211.3.579.2.531 Unknown [id number] 2.16.840.1.924446.3.579.2.531 Social History Date Type Detail Facility Daily caffeine consumption Daily caffeine consumption [facility] DO Work Phone: Comment on above: 1-2 mixed drinks a m onth; 1 ppd; 1-2 mixed drinks a w chipewwa; 1 decaff coffee; Start: 09-09-2021 Tobacco smoking status Heavy t obacco smoker (finding) [facility] Tobacco smoking status Never [facility] Sex Assigned At Male [facility] [place] Start: 1960 Sex Assigned At Male F [facility] Clinical Notes 08-25-2021 to 02-13-2023 Note Date & Type Note Facility 02-13-2023 Evaluation note Encounter Date Diagnosis Assessment Notes Jan, Lung nodule (ICD-10 - R91.1) Jan, Tobacco use disorder (ICD-10 - F17.200) [facility] Other 10-20-2023 Evaluation note* Encounter Date Diagnosis Assessment Notes Treatment Notes Treatment Clinical Notes Jan, Benign paroxysmal positional vertigo, unspecified laterality (ICD-10 - H81.10) Order printed for PT. Pt will call and set up appt. Jan, Mixed hyperlipidemia (ICD-10 - E78.2) Recheck labs. Pt had adverse side effects to crestor. [facility] Other 07-18-2023 Evaluation note* Encounter Date Diagnosis Assessment Notes Treatment Notes Treatment Clinical Notes Oct, Lung nodule (ICD-10 - R91.1) Oct, Nicotine dependence, cigarettes, uncomplicated (ICD-10 - F17.210) [facility] Other 05-15-2023 Evaluation note* Encounter Date Diagnosis Assessment Notes Treatment Notes Treatment Clinical Notes August, Wellness examination (ICD-10 - Z00.00) Retired - encouraged quitting smoking, healthy diet and exercise August, Mixed hyperlipidemia (ICD-10 - E78.2) presently on Fish oil - will check labs August, Screening PSA (prostate specific antigen) (ICD-10 - Z12.5) pt states he is due for lab August, Intermittent atrial fibrillation (ICD-10 - I48.0) managed by Dr. Finley - will set up with [facility] August, Nicotine dependence, cigarettes, uncomplicated (ICD-10 - F17.210) agrees to LDCT and chantix. discussed side effects of chantix. August, Screening for colon cancer (ICD-10 - Z12.11) agrees to cologuard August, GERD without esophagitis (ICD-10 - K21.9) requests refill of Aciphex. [facility] Other 05-05-2022 Hospital Discharge instructions Follow Up Care 08/25/2021 11:29:08 With:Jeancarlos GUDINO DO, FAM Address: [address] [place] [address]- When:Within 1 Year(s) [facility] Evaluation + Plan note Future Appointments Appointment Date:09/16/2021 04:00:00 PM Scheduled [facility] () Appointment Date:09/11/2022 10:00:00 AM Scheduled Provider:Jeancarlos GUDINO DO Location:[facility] Appointment Type: Open Future Scheduled Tests Laboratory* PSA Screen, Total 08/29/21 * CBC w/ Auto Diff 08/29/21 * Comprehensive Metabolic Panel 08/29/21 * Lipid Panel 08/29/21 Radiology* MRI Brain w/o Contrast 09/16/21 [facility] Evaluation noteNo InformationNort Gullivearth Other Evaluation noteNo assessment information available [facility] Work Phone: Hisqjaw general Narrative - Reported* Type Description Date Medical History Afib Medical History IBS Medical History Protruding disc C4-C5 Surgical History Cholecystectomy 2005 Surgical History Ablation on heart Surgical History Colonoscopy - Dr. Estes 2005 [facility] Other Hospital course Narrative No data available for this section [facility] Reason for visit Narrative* Indication: Atrial fibrillation * Procedure: Patient underwent 30-day event monitor. Baseline rhythm is normal sinus rhythm. During the monitoring. Patient reported symptoms of palpitation, racing heart rate and dizziness. The rhythmappears to be mainly sinus with occasional PVCs and PACs during those episode. There was 1 auto triggered episodes that demonstrate a brief episode of atrial fibrillation * Conclusion * 1. Normal sinus rhythm * 2. Symptoms of palpitation and S appears to coincide with occasional PACs and PVCs * 3. One brief run of atrial fibrillation * Event Monitor: * ABHINAV is here for the application of a 30 day event monitor in office., Diagnosis: PAF * Ordering Physician: Dr. Carly Gamble MD * Enrollment sent to: [facility] * Monitor number [id number] applied. * Holter monitor printed and placed on Dr. Higinio Tyson MD desk to dictate. [place] [address] DO Work Phone: Summary Purpose Family History No Family History Records FoundUnknown Family Member Name Dates Details Adopted: Other(V68.89, Z02.8 2) Status:Active No pertinent family history: Mother, Father, Sibling(V49.89, Z78.9) Status:Active Unknown Family Member Name Dates Details Adopted: Other(V68.89, Z02.8 2) Status:Active No pertinent family history: Mother, Father, Sibling(V49.89, Z78.9) Status:Active Unknown Family Member Name Dates Details No pertinent family history: Mother, Father, Sibling(V49.89, Z78.9) Status:Active Adopted: Other(V68.89, Z02.8 2) Status:Active Unknown Family Member Name Dates Details Adopted: Other(V68.89, Z02.8 2) Status:Active No pertinent family history: Mother, Father, Sibling(V49.89, Z78.9) Status:Active Unknown Family Member Name Dates Details Adopted: Other(V68.89, Z02.8 2) Status:Active No pertinent family history: Mother, Father, Sibling(V49.89, Z78.9) Status:Active Unknown Family Member Name Dates Details Adopted: Other(V68.89, Z02.8 2) Status:Active No pertinent family history: Mother, Father, Sibling(V49.89, Z78.9) Status:Active Relationship Condition Age at Onset Recorded Date/T osmin father Unknown Not Specified Unknown Advance Directives No Advanced Directives Records Found Advance Directive Response Recorded Date/ Time Advance Directives No October 09 11:46am Chief Complaint * ABHINAV FELIX is being seen for a 6 month follow-up of. * Patient is in the office for follow-up for paroxysmal atrial fibrillation on Multaq and long-term anticoagulation with warfarin. An event monitor he had in February 2021 was read by one of my associates and I was not aware of it. I reviewed with the patient today and indicated to him that he will had only one episode of atrial fibrillation with a heart rate of less than 115 bpm causing palpitations along with episode of premature atrial ventricular complexes. He denies any symptoms of TIA and has had no bleeding problems. He continues to smoke. We discussed the options of therapy based on theresults of the event monitor. * ASSESSMENT AND PLAN: * 1. Paroxysmal atrial fibrillation, status post ablation twice with recurrences, currently on Multaqand Coumadin. Presently has occasional breakthrough atrial fibrillation for which the options of therapy are switching to another antiarrhythmic therapy such as dofetilide which required a 3-day admission to the hospital or ablation neither options are desired by the patient at this time and he wishes to continue with the Multaq. * 2. Obesity. Encouraged more weight control with diet and exercise. * 3. Active tobacco abuse. He was counseled again for tobacco cessation. Patient has no desire to quit * 4. High-risk medication with Multaq and Coumadin, both of which have * been well tolerated. CBC and basic metabolic profile were ordered * 5. Remote history of TIA with no recurrences * 6. Palpitations caused by paroxysmal atrial fibrillation and premature atrial and ventricular complexes. For the first part he is on Multaq and for the second part I advised the patient to go on magnesium oxide 400 mg daily * Carly Gamble MD, FACC * ABHINAV FELIX is being seen for a 6 month follow-up of. * Patient is in the office for follow-up for the problems noted below. He reports [facility] palpitations since he started taking magnesium. His PCP started him on fish oil for high triglycerides. Bloodwork from 2 weeks ago was reviewed with him his creatinine is up to 1.34 which I believe is caused by lack of fluid intake. We will follow-up on that. His weight remains above target and he continuesto smoke. We addressed tobacco cessation extensively today. He has active lifestyle and is in longterm at the present time. His examination is normal except for his obesity. * ASSESSMENT AND PLAN: * 1. Paroxysmal atrial fibrillation, status post ablation twice with recurrences, currently on Multaqand Coumadin.. * 2. Obesity. Encouraged more weight control with diet and exercise. * 3. Active tobacco abuse. He was counseled again for tobacco cessation. Patient has no desire to quit * 4. High-risk medication with Multaq and Coumadin, both of which have been well tolerated. * 5. Remote history of TIA with no recurrences * 6. High triglycerides for which she is on fish oil. We will follow on that in few months * 7. Stage IIIa chronic kidney disease, advised patient to stay hydrated and will follow renal function in 6 months. * Carly Gamble MD, FACC * ABHINAV FELIX is being seen for a 6 month follow-up of. * Patient is in the office for follow-up for the problems noted below. He reports [facility] palpitations since he started taking magnesium. His PCP started him on fish oil for high triglycerides. Bloodwork from 2 weeks ago was reviewed with him his creatinine is up to 1.34 which I believe is caused by lack of fluid intake. We will follow-up on that. His weight remains above target and he continuesto smoke. We addressed tobacco cessation extensively today. He has active lifestyle and is in longterm at the present time. His examination is normal except for his obesity. * ASSESSMENT AND PLAN: * 1. Paroxysmal atrial fibrillation, status post ablation twice with recurrences, currently on Multaqand Coumadin.. * 2. Obesity. Encouraged more weight control with diet and exercise. * 3. Active tobacco abuse. He was counseled again for tobacco cessation. Patient has no desire to quit * 4. High-risk medication with Multaq and Coumadin, both of which have been well tolerated. * 5. Remote history of TIA with no recurrences * 6. High triglycerides for which she is on fish oil. We will follow on that in few months * 7. Stage IIIa chronic kidney disease, advised patient to stay hydrated and will follow renal function in 6 months. * Carly Gamble MD, FACC * ABHINAV FELIX is being seen for a month follow-up of. * Patient is in the office for follow-up for the problems noted below. He retired last year and is trying to quit smoking but has not succeeded yet. He denies any palpitations since he started taking magnesium [id number]. He is on Multaq and his rhythm is sinus with PACs in bigeminal pattern. Has not had any recent lab data. He does have chronic kidney disease stage III which I explained to him in details today. His weight remains above target. Has had no bleeding complications on Coumadin. * ASSESSMENT AND PLAN: * 1. Paroxysmal atrial fibrillation, status post ablation twice with recurrences, currently on Multaqand Coumadin.. * 2. Obesity. Encouraged more weight control with diet and exercise. * 3. Active tobacco abuse. He was counseled again for tobacco cessation. Patient has no desire to quit * 4. High-risk medication with Multaq and Coumadin, both of which have been well tolerated. Basic metabolic profile is ordered along with CBC * 5. Remote history of TIA with no recurrences * 6. High triglycerides for which she is on fish oil. We will follow lipid profile * 7. Stage IIIa chronic kidney disease, advised patient to stay hydrated and will follow renal function in 6 months. * 8. Atrial bigeminy, asymptomatic * ABHINAV FELIX is being seen for a 6 month follow-up of. * Patient is in the office for follow-up for the problems noted below. He remains in normal sinus rhythm confirmed by EKG today with rare breakthrough arrhythmias. He is on Coumadin managed by the Coumadin clinic. His weight has not dropped much from last visit but he is moving in the right direction. Unfortunately continues to smoke and his effort to quit smoking and failed. Recent lab data showednormal renal function and reassurances that regard was provided. His lipid profile though is out ofcontrol. He takes cholestyramine but he takes it only for diarrhea that developed after gallbladdersurgery. I advised patient to go on rosuvastatin which he will. * ASSESSMENT AND PLAN: * 1. Paroxysmal atrial fibrillation, status post ablation twice with recurrences, currently on Multaqand Coumadin.. * 2. Class I obesity. Encouraged more weight control with diet and exercise. * 3. Active tobacco abuse. He was counseled again for tobacco cessation. * 4. High-risk medication with Multaq and Coumadin, both of which have been well tolerated. * 5. Remote history of TIA with no recurrences * 6. Dyslipidemia, the patient is willing to go on rosuvastatin 20 mg daily. Chief Complaint and Reason for Visit Chief Complaint Amb Documentation R91.1 . Additional Source Comments (unrecognized sect ion and content) No Status Records FoundNo Status Records FoundNo Status Records FoundNo Status Records FoundNo Status Records FoundNo Status Records FoundNo Status Records FoundNo Status Records Found INFORMATION SOURCE (unrecogn ized section and content) DATE CREATED AUTHOR 10/16/2017 [facility] DATE CREATED AUTHOR AUTHOR'S ORGANIZ ATION 01/30/2018 [facility] DATE CREATED AUTHOR AUTHOR'S ORGANIZ ATION 02/14/2019 [facility] DATE CREATED AUTHOR AUTHOR'S ORGANIZ ATION 07/31/2022 [facility] DATE CREATED AUTHOR AUTHOR'S ORGANIZ ATION 09/05/2022 [facility] DATE CREATED AUTHOR AUTHOR'S ORGANIZ ATION 12/13/2022 [facility] DATE CREATED AUTHOR AUTHOR'S ORGANIZ ATION 12/13/2022 [employer] DATE CREATED AUTHOR AUTHOR'S ORGANIZ ATION 08/11/2023 [facility] Reason for Visit (unrecogniz ed section and content) Event Monitor:ABHINAV is here f or the application of a 30 day event monitor in office., Diagnosis: PAFOrdering Physician: Dr. Carly Gamble MDEnrollment sent to: RhythmstarMonitor number [id number] applied.[email or web address] wk f/u Lung Nodule3 mo f/u COPD, [facility]SA[facility]igo Care Teams (unrecognized sec tion and content) Team Status: Active Member Role Status Dates Regi Leong MD Primary Care Provider Active Team Status: Active Member Role Status Dates Regi Leong MD Primary Care Provide r, Attending Provider Active Start: June 12, 2023 Team Status: Active Member Role Status Dates Regi Leong MD Primary Care Provider Active Start: July 27, 2023 POONAM Reynolds Attending Provider Active Start : July 27, 2023 Team Status: Inactive Member Role Status Dates Regi Leong MD Primary Care Provider Active Start: August 07, 2023 End: August 07, 2023 Uche Porter MD Attending Provider Active Star t: August 07, 2023 End: August 07, 2023 Goals (unrecognized section and content) Goals may be documented in a n alternate section FOR RECORDS PERTAINING TO PATIENTS WHO ARE OR HAVE BEEN ENROLLED IN A CHEMICAL DEPENDENCY/SUBSTANCEABUSE PROGRAM, SOME INFORMATION MAY BE OMITTED. This clinical summary was aggregated from multiple sources. Caution should be exercised in using it in the provision of clinical care. This summary normalizes information from multiple sources, and as a consequence, information in this document may materially change the coding, format and clinical context of patient data. In addition, data may be omitted in some cases. CLINICAL DECISIONS SHOULD BE BASED ON THE PRIMARY CLINICAL RECORDS. [employer] [facility]. provides no warranty or guarantee of the accuracy or completeness of information in this document.
--- NOTE | 2023-09-20 08:41 | XR_ITS ---
[place] [id number] Patient Name: ABHINAV EFLIX MRN: [id number] date: 1960 Sex: M Assigned Patient Location: LAB Current Patient Location: LAB Accession/Order Number: [id number] Exam Date: 09/20/2023 08:48 Report Date: 09/20/2023 09:09 At the request of: JARED LEONG Procedure: XR hip BI w PEL 1V EXAMINATION: XR hip BI w PEL 1V HISTORY: Bilateral Hip Pain COMPARISON: No relevant comparison available. FINDINGS: RIGHT FINDINGS: BONES: No acute fracture or dislocation. Mild osteoarthropathy with marginal osteophyte formation SOFT TISSUES: Negative. No visible soft tissue swelling. OTHER: Negative. LEFT FINDINGS: BONES: No acute fracture or dislocation. Mild osteoarthropathy with marginal osteophyte formation SOFT TISSUES: Negative. No visible soft tissue swelling. OTHER: Negative. XR/XR hip BI w PEL 1V IMPRESSION: RIGHT CONCLUSION: Mild osteoarthritis LEFT CONCLUSION: Mild osteoarthritis Electronically authenticated by: CHIKA CONNORS Date: 09/20/2023 09:09
[2023-09-20 08:49] LABS: Basophils Absolute Auto 0.1 10^3/uL (0.0-0.1); Basophils Percent Auto 0.7 % (0.2-2.0); Eosinophils Absolute Auto 0.3 10^3/uL (0.0-0.7); Eosinophils Percent Auto 3.1 % (0.9-7.0); Hematocrit 47.6 % (42.0-54.0); Hemoglobin 16.3 g/dL (14.0-18.0); Immature Granulocytes Abs Auto 0.03 10^3/uL (0.00-0.03); Immature Granulocytes Pct Auto 0.3 % (0.0-0.5); Lymphocytes Absolute Auto 2.3 10^3/uL (1.2-3.8); Lymphocytes Percent Auto 22.1 % (20.5-60.0); Mean Corpuscular HGB Conc 34.2 g/dL (29.9-35.2); Mean Corpuscular Volume 90.7 fL (80.0-94.0); Mean Platelet Volume 10.7 fL (9.5-13.5); Monocytes Absolute Auto 1.2 10^3/uL (0.3-0.8); Monocytes Percent Auto 11.7 % (1.7-12.0); Neutrophils Absolute Auto 6.5 10^3/uL (1.4-6.5); Neutrophils Percent Auto 62.1 % (43.0-75.0); Platelet Count 171 10^3/uL (150-450); Red Blood Count 5.25 10^6/uL (4.70-6.10); Red Cell Distribution Width 12.6 % (11.0-15.0); White Blood Count 10.5 10^3/uL (4.0-11.0)
[2023-09-20 08:58] LABS: INR 3.21; Prothrombin Time 30.3 sec (9.0-11.6)
[2023-09-20 09:38] LABS: Anion Gap 12.5; BUN Creatinine Ratio 14.1; Calcium 8.5 mg/dL (8.5-10.1); Carbon Dioxide 27.3 mmol/L (21.0-32.0); Chloride 105 mmol/L (98-107); Estimated GFR (African America >60 (>=60); Estimated GFR (Non-African Ame >60 (>=60); Glucose 104 mg/dL (74-106); Potassium 3.8 mmol/L (3.5-5.1); Sodium 141 mmol/L (136-145)
[2023-09-20 09:57] LABS: Prostate Specific Antigen Scrn 0.74 ng/mL (<=4.00)
== END 2023-09-20 08:23 | disposition home or self-care (01) ==
LOC: LAB 08:25
PROVIDERS: PCP Family Medicine; Visit Provider Family Medicine
DX: R63.4 Abnormal weight loss (principal); Z12.5 Encounter for screening for malignant neoplasm of prostate; I48.0 Paroxysmal atrial fibrillation; M25.551 Pain in right hip; M25.552 Pain in left hip
CPT/HCPCS: 36415; 73523; 80048; 85025; 85610; G0103

== ENCOUNTER 2023-09-24 03:26 | Outpatient (RCR) | payer OTHER, SELFPAY | END 2023-10-19 10:55 | disposition home or self-care (01) | LOC: MM 03:26 | PROVIDERS: PCP Family Medicine; Visit Provider Internal Medicine | DX: Z51.81 Encounter for therapeutic drug level monitoring (principal); Z79.01 Long term (current) use of anticoagulants; I48.0 Paroxysmal atrial fibrillation ==

== ENCOUNTER 2023-10-08 12:59 | Outpatient (RCR) | payer OTHER, SELFPAY | END 2023-10-23 15:28 | disposition home or self-care (01) | LOC: PT 12:59 | PROVIDERS: PCP Family Medicine; Visit Provider Family Medicine | DX: M25.551 Pain in right hip (principal); M25.552 Pain in left hip | CPT/HCPCS: 97110; 97161 ==

== ENCOUNTER 2023-10-17 10:09 | Outpatient (OUT) | payer OTHER, SELFPAY ==
--- OUTSIDE RECORDS SUMMARY | 2023-10-17 10:18 | XMS_ITS | CCD ---
Author Organization [facility] Providers Care Ham Stripper Name Role Phone PHYSICIAN, DEFAULT Unavailable Unavailable PHYSICIAN, DEFAULT Unavailable Unavailable CARLY GAMBLE Unavailable Unavailable JEANCARLOS GUDINO Unavailable Unavailable Jeancarlos Gudino Unavailable Unavailable Unavailable Jeancarlos GUDINO Primary Care Physician Jeancarlos GUDINO Referring Unavailable Jeancarlos GUDINO Attending Unavailable TERESE, Jeancarlos Finney Admitting Unavailable [...] Finney Primary Care Unavailable TERESE, DR JEANCARLOS Rodriguez Unavailable DRE, DR CARLY White Consulting Unavailable GAMBLE, DR CARLY White Attending Unavailable GAMBLE, DR CARLY White Admitting Unavailable TERESE, DR JEANCARLOS Finney Primary Care Unavailable TERESE, DR JEANCARLOS Finney Consulting Unavailable TERESE, DR JEANCARLOS Finney Attending Unavailable TERESE, DR JEANCARLOS Finney Admitting Unavailable TERESE, DR JEANCARLOS Finney Primary Care Unavailable SALO, DR REGI Jones Primary Care Unavailable SALO, DR REGI Jones Consulting Unavailable SALO, DR REGI Jones Attending Unavailable SALO, DR [...] TERESE, DR JEANCARLOS Finney Primary Care Unavailable Changuyễn, Kamal Unavailable Regi Leong Unavailable Terese, Dr. Jeancarlos Dhillon Primary Care Tomas Gamble, Dr. Carly Godoy Attending Simran vailable Gamble, Dr. Carly Godoy Referring Simran vailable Terese, Dr. Jeancarlos Dhillon Primary Care Simranvai labaidan Gamble, Dr. Carly Godoy Attending Simran vailable Gamble, Dr. Carly Godoy Referring Simran vailable MD Regi Leong Primary Care Provider [phone] MD Uche Porter Attending Provider Stephaniaban, Kamal Admitting Unavailable German, Uche Attending Unavailable Regi Leong Primary Care Unavailable Regi Leong Primary Care Unavailable German, Uche Admitting Unavailable German, Uche Attending Unavailable German, Uche Attending Unavailable Regi Leong Primary Care Unavailable German, Kamal Admitting Unavailable Allergies Allergy Classification Reported Allergen(s) Allergy Type Date of Onset Reaction(s) Facility (17 sources) dabigatran etexilate; Translations: [Pradaxa CAPS] [facility] [employer] Work Phone: (13 sources) Penicillins; Translations: [Penicillins] Allergy to drug (finding) 4 anaphylaxis [facility] [employer] Work Phone: (2 sources) dabigatran etexilate; Translations: [dabigatran] Drug Allergy Rectal hemorrhage (disorder), Bleeding from nose (finding), Incontinence (finding) [facility] [place] (8 sources) Penicillin; Translations: [penicillin] Drug Allergy 7 anaphylaxis [facility] (2 sources) dabigatran etexilate; Translations: [dabigatran etexilate] Drug Allergy 4 bleeding [facility] (1 source) Penicillins Drug allergy (disorder) [address] [place] [address] Repository Medications Current Medications Medication Drug Class(es) Dates Sig (Normalized) Sig (Original) Aciphex 20 mg Tab-EC (1 source) Start: 05-21-2021 take 1 tablet by mouth once daily Aciphex 20 mg Tab-EC 20 mg = 1 tab(s), Oral, Daily, # 90 tab(s), Refills(s) 3, Pharmacy: [facility], 180.3, cm, 05/20/20 15:18:00 EST, Height/Length Dosing, 108.4, kg, 05/20/20 15:18:00 EST, Weight Dosing Start Date: 05/21/21 Status: Ordered 12 hr buPROPion hydrochloride 150 mg extended release oral tablet (4 sources) Aminoketone Start: 08-01-2023 take 150 mg by mouth twice daily Bupropion Hcl Active 150 MG PO Twice daily 180 90 August 01, 2023 8:55am Start: 07-27-2023 End: [...] BID, # 60 EA, Refills(s) 5, Pharmacy: [facility] Start Date: 12/02/18 Status: Ordered [...] Orally; Note: Source Status: Taking; Provider: Salo Jones Colestid 5 GM as directed Orally Active dronedarone [...] sunday, # 150 tab(s), Refills(s) 3, Pharmacy: [facility], 180.3, cm, 05/20/20 15:18:00 EST, Height/Length Dosing, 10... 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; Translations: [OTH PROCUREMENT REPRESENTATIVE CURRENT DRUG THERAPY] Onset: 06-12-2022 Episodic Other [...] cerebral ischemia] Chronic Unclassified (2 sources) 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 / Z79.899(ICD-9) Onset: 12-26-2017 [...] Resolved: 12-12-2022 Chronic Unclassified (1 source) Other retirement (current) drug therapy; Translations: [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] Onset: 12-26-2017 Results Test Name Value Interpretation Reference Range Facil ity CT chest wo conon 08-07-2023 CT chest wo con [facility] [place] [address] [place] [address] CT Scan Report Signed Patient: Abhinav Felix MR#: [id number] : 1960 Acct:[id number] Age/Sex: 63 / M ADM Date: 08/07/23 Loc: [facility] Room: Type: [facility] Attending Dr: Uche Porter MD Copies [...] Aracelis Banks M.D.08/07/2023 4:29 PM Dictation Location: [facility]--12 Transcribed By: KIANA 08/07/23 162 Dictated By: Aracelis Banks MD 08/07/23 162 Signed By: 08/07/23 162 Normal The Count Includes [facility] Cholesterol in LDL Calc [Mas s/Vol]on 06-12-2023 Cholesterol in LDL [Mass/Vol] 54.0 mg/dL [facility] Comment on above: <100 mg/dl [id number] 0-129 mg/dl NEAR OR ABOVE [id number] mg/dl BORDERLINE [id number] mg/dl HIGH>190 mg/dl VERY HIGH Cholesterol in VLDL Calc [Ma ss/Vol]on 06-12-2023 Cholesterol in VLDL [Mass/Vol] 48.0 mg/dL [facility] Estimated glomerular filtrat ion rate (GFR) non- Americanon 06-12-2023 GFR/1.73 sq M.predicted among non-blacks MDRD (S/P/Bld) [Vol rate/Area] mL/min/{1.73_m2} >=60 [facility] Globulin Calc (S) [Mass/Vol] on 06-12-2023 Globulin (S) [Mass/Vol] 4.4 g/dL [facility] Laboratory - Chemistry and C hemistry - challengeon 06-12-2023 Albumin [Mass/Vol] 3.3 g/dL 3.4-5.0 [facility] ALP [Catalytic activity/Vol] 93 U/L 46-116 [facility] ALT [Catalytic activity/Vol] 28 U/L 16-63 [facility] AST [Catalytic activity/Vol] 18 U/L 15-37 [facility] Bilirubin [Mass/Vol] 0.6 mg/dL 0.2-1.0 [facility] Calcium [Mass/Vol] 8.6 mg/dL 8.5-10.1 [facility] Chloride [Moles/Vol] 103 mmol/L 98-107 [facility] Cholesterol [Mass/Vol] 135 mg/dL <=200 [facility] Cholesterol in HDL [Mass/Vol] 33 mg/dL 40-60 [facility] Comment on above: > or =60 mg/dl - LOW CARDIOVASCULAR RISK<40 mg/dl - HIGH CARDIOVASCULAR RISK CO2 [Moles/Vol] 28.4 mmol/L 21.0-32.0 [facility] Creatinine [Mass/Vol] 0.93 mg/dL 0.70-1.30 [facility] GFR/1.73 sq M.predicted MDRD (S/P/Bld) [Vol rate/Area] mL/min/{1.73_m2} >=60 [facility] Glucose [Mass/Vol] 85 mg/dL 74-106 [facility] Potassium [Moles/Vol] 4.3 mmol/L 3.5-5.1 [facility] Protein [Mass/Vol] 7.7 g/dL 6.4-8.2 [facility] Sodium [Moles/Vol] 140 mmol/L 136-145 [facility] Triglyceride [Mass/Vol] 240 mg/dL <=150 [facility] Urea nitrogen [Mass/Vol] 11.0 mg/dL 7.0-18.0 [facility] Urea nitrogen/Creatinine [Mass ratio] 11.8 mg/mg [facility] Serum or plasma albumin/glob ulin mass ratioon 06-12-2023 Albumin/Globulin [Mass ratio] 0.8 {ratio} [facility] Serum or plasma anion gap de terminationon 06-12-2023 Anion gap [Moles/Vol] 12.9 mmol/L [facility] Serum or plasma total choles terol/high density lipoprotein (HDL) cholesterol mass juan miguel 06-12-2023 Cholesterol.total/Ch olesterol in HDL [Mass ratio] 4.1 {ratio} [facility] Comment on above: 3.3 - 4.4 LOW RISK4. 4 - 7.1 AVERAGE RISK7.1 - 11.0 MODERATE RISK>11.[address] lung screeningon 02-02-20 CT lung screening [facility] Main [place] [id number] CT Scan Report Signed Patient: Abhinav Felix MR#: [id number] : 1960 Acct:[id number] Age/Sex: 62 / M ADM Date: 02/01/23 Loc: [facility] Room: Type: [facility] Attending Dr: Uche Porter MD Copies [...] Lockwood Jr., D.OSwapna02/01/2023 2:00 PM Dictation Location: [place] [address] Transcribed By: [facility] 02/01/23 1400 Dictated By: Yannick Lockwood Jr, DO 02/01/23 1348 Signed By: 02/01/23 1400 [facility] Office Visit (Cardiology)on 12-12-2022 Follow-up [...] Weight Tips; Status:Complete - Retrospective Authorization; Done: [id number] Some eating tips that can help you lose weight.; Status:Complete - Retrospective Authorization; Done: [id number] Paroxysmal atrial fibrillation Renew: Multaq 400 MG Oral Tablet; TAKE 1 TABLET TWICE DAILY, WITH MORNING AND EVENING MEAL IO EKG Electrocardiogram- 12 Lead; Status:Complete; Done: [id number] Renew: Nebivolol HCl - 10 MG Oral [...] we can help. You may also call [phone]-TJSONOW for free resources and assistance.; Status:Complete - Retrospective Authorization; Done: [id number] Tobacco Use Screening; Status:Complete; Done: [id number] Patient Instructions Please bring all medicines, vitamins, [...] Vital Signs (more content not included)... Normal [facility] Tobacco Screening.on 023 Fall risk assessment b) One or more falls in the last year [facility] y 250 DO Work Phone: Tobacco use status [facility] a) Yes [facility] y 250 DO Work Phone: Tobacco Screening. Yes [facility] y 250 DO Work Phone: Glucose Poct Glucometerson 0 10-13-2022 Glucose [Mass/Vol] 114 mg/dL Normal [facility] Comment on above: Result Comment: [facility] Glucose Reference Range is dependent on time and content of last meal. Glucose of more than 200 mg/dL in a nonstressed, ambulatory subject supports the diagnosis of Diabetes Mellitus. PERFORMED BY: [place] [id number] PATHOLOGIST STUD DAIRY CATTLE FARMER LEXA VALDEZ M.D. Performed By: #### G MIQUEL #### Point of Care testing , PET tumor init tx strat sb-m [facility] 10-13-2022 PET tumor init tx strat sb-mt [facility] [place] [address] [place], [place] [id number] Nuclear Medicine Report Signed Patient: Abhinav Felix MR#: [id number] : 1960 Acct:[id number] Age/Sex: 62 / M ADM Date: 10/13/22 Loc: Room: Type[facility] Attending Dr: Uche Porter MD Copies to: Yannick Lockwood Jr, DO Uche Porter MD Ordering Provider: Uche Porter [...] Lockwood Jr., D.O.10/13/2022 1:03 PM Dictation Location: [place] [address] Transcribed By: [facility] 10/13/22 1303 Dictated By: Yannick Lockwood Jr DO 10/13/22 1101 Signed By: 10/13/22 1303 Normal The Count Includes [facility] CBC AUTO DIFFon 09-04-2022 BASO # 0.1 103/ul Normal 0.0-0.1 [facility] Comment on above: Performed By: #### P [facility] #### [facility] [address] [place] [address] [address] Nabil Che Basophils/100 WBC (Bld) 0.9 % Normal 0.2-2.0 [facility] Comment on above: Performed By: #### P SASC #### [facility] [address] [place] [address] [address] Nabil Che EO # 0.3 103/ul Normal 0.0-0.7 [facility] Comment on above: Performed By: #### P SASC #### [facility] [address] [place] [address] [address] Nabil Che Eosinophils/100 WBC (Bld) 3.3 % Normal 0.9-7.0 [facility] Comment on above: Performed By: #### P SASC #### [facility] [address] [place] [address] [address] Nabil Che Erythrocyte distribution width (RBC) [Ratio] 13.2 % Normal 11.0-15.0 [facility] Comment on above: Performed By: #### P SASC #### [facility] [address] [place] [address] [address] Nabil Che Hematocrit (Bld) [Volume fraction] 51.1 % Normal 42.0-54.0 [facility] Comment on above: Performed By: #### P SASC #### [facility] [address] [place] [address] [address] Nabil Che Hemoglobin (Bld) [Mass/Vol] 17.8 g/dL Normal 14.0-18.0 [facility] Comment on above: Performed By: #### P SASC #### [facility] [address] [place] [address] [address] Nabil Che IG # 0.07 10e3/ul Critically high 0.00-0.03 [facility] Comment on above: Performed By: #### P SASC #### [facility] [address] [place] [address] [address] Nabil Che IG % 0.7 % Critically high 0.0-0.5 [facility] Comment on above: Performed By: #### P SASC #### [facility] [address] [place] [address] [address] Nabil Che LYMPH # 2.1 103/ul Normal 1.2-3.8 [facility] Comment on above: Performed By: #### P SASC #### [facility] [address] [place] [address] [address] Nabil Che Lymphocytes/100 WBC (Bld) 21.2 % Normal 20.5-60.0 [facility] Comment on above: Performed By: #### P SASC #### [facility] [address] [place] [address] [address] Nabil Che MANUAL DIFF REQ NO Normal [facility] Comment on above: Performed By: #### P SASC #### [facility] [address] [place] [address] [address] Nabil Che MCH (RBC) [Entitic mass] 31.5 pg Normal 25.9-34.0 [facility] Comment on above: Performed By: #### P SASC #### [facility] [address] [place] [address] [address] Nabil Che MCHC (RBC) [Mass/Vol] 34.8 g/dL Normal 29.9-35.2 [facility] Comment on above: Performed By: #### P SASC #### [facility] [address] [place] [address] [address] Nabil Che MCV (RBC) [Entitic vol] 90.4 fL Normal 80.0-94.0 [facility] Comment on above: Performed By: #### P SASC #### [facility] [address] [place] [address] [address] Nabil Che MONO # 1.2 103/ul Critically high 0.3-0.8 [facility] Comment on above: Performed By: #### P SASC #### [facility] [address] [place] [address] [address] Nabil Che Monocytes/100 WBC (Bld) 12.1 % Critically high 1.7-12.0 [facility] Comment on above: Performed By: #### P SASC #### [facility] [address] [place] [address] [address] Nabil Che NEUT # 6.0 103/ul Normal 1.4-6.5 [facility] Comment on above: Performed By: #### P SASC #### [facility] [address] [place] [address] [address] Nabil Che Neutrophils/100 WBC (Bld) 61.8 % Normal 43.0-75.0 [facility] Comment on above: Performed By: #### P SASC #### [facility] [address] [place] [address] [address] Nabil Che Platelet mean volume (Bld) [Entitic vol] 10.3 fL Normal 9.5-13.5 [facility] Comment on above: Performed By: #### P SASC #### [facility] [address] [place] [address] [address] Nabil Che PLT 203 103/ul Normal 150-450 [facility] Comment on above: Performed By: #### P SASC #### [facility] [address] [place] [address] [address] Nabil Che RBC 5.65 106/ul Normal 4.70-6.10 [facility] Comment on above: Performed By: #### P SASC #### [facility] [address] [place] [address] [address] Nabil Che WBC 9.8 103/ul Normal 4.0-11.0 [facility] Comment on above: Performed By: #### P SASC #### [facility] [address] [place] [address] [address] Nabil Che LIPID PROFILEon 09-04-2022 CHOL-HDL RATIO NORM SEE BELOW Normal [facility] Comment on above: Result Comment: 3.3 - 4.4 LOW RISK 4.4 - 7.1 AVERAGE RISK 7.1 - 11.0 MODERATE RISK >11.0 HIGH RISK Performed By: #### L IPID, CMP #### [facility] [address] [place] [address] [address] Nabil Che Cholesterol [Mass/Vol] 231 mg/dL Critically high <=200 [facility] Comment on above: Performed By: #### L IPID, CMP #### [facility] [address] [place] [address] [address] Nabil Che Cholesterol in HDL [Mass/Vol] 37 mg/dL Critically low 40-60 [facility] Comment on above: Performed By: #### L IPID, CMP #### [facility] [address] [place] [address] [address] Nabil Che Cholesterol in LDL [Mass/Vol] 137.0 mg/dL Normal [facility] Comment on above: Performed By: #### L IPID, CMP #### [facility] [address] [place] [address] [address] Nabil Che Cholesterol.total/Ch olesterol in HDL [Mass ratio] 6.2 {ratio} Normal [facility] Comment on above: Performed By: #### L IPID, CMP #### [facility] [address] [place] [address] Dr. Nabil Che HDL NORMAL > or = 60 mg/dl - LOW CARDIOVASCULAR RISK <40 mg/dl - HIGH CARDIOVASCULAR RISK Normal [facility] Comment on above: Performed By: #### L IPID, CMP #### [facility] [address] [place] [address] Dr. Nabil Che LDL CALC NORMAL SEE BELOW Normal [facility] Comment on above: Result Comment: <100 mg/dl OPTIMAL 100 - 129 mg/dl NEAR OR ABOVE OPTIMAL 130 - 159 mg/dl BORDERLINE HIGH 160 - 189 mg/dl HIGH >190 mg/dl VERY HIGH Performed By: #### L IPID, CMP #### [facility] [address] [place] [address] Dr. Nabil Che Triglyceride [Mass/Vol] 285 mg/dL Critically high <=150 [facility] Comment on above: Performed By: #### L IPID, CMP #### [facility] [address] [place] [address] Dr. Nabil Che VLDL CALC 57.0 mg/dL Normal [facility] Comment on above: Performed By: #### L IPID, CMP #### [facility] [address] [place] [address] Dr. Nabil Che PROF 14(COMP METB)on 023 Albumin [Mass/Vol] 3.7 g/dL Normal 3.4-5.0 [facility] Comment on above: Performed By: #### L IPID, CMP #### [facility] [address] [place] [address] Dr. Nabil Che Albumin/Globulin [Mass ratio] 0.8 {ratio} Normal [facility] Comment on above: Performed By: #### L IPID, CMP #### [facility] [address] [place] [address] [address] Nabil Che ALP [Catalytic activity/Vol] 96 U/L Normal 46-116 [facility] Comment on above: Performed By: #### L IPID, CMP #### [facility] [address] [place] [address] Dr. Nabil Che ALT [Catalytic activity/Vol] 42 U/L Normal 16-63 [facility] Comment on above: Performed By: #### L IPID, CMP #### [facility] [address] [place] [address] Dr. Nabil Che Anion gap [Moles/Vol] 11.9 mmol/L Normal [facility] Comment on above: Performed By: #### L IPID, CMP #### [facility] [address] [place] [address] Dr. Nabil Che AST [Catalytic activity/Vol] 23 U/L Normal 15-37 [facility] Comment on above: Performed By: #### L IPID, CMP #### [facility] [address] [place] [address] [address] Nabil Che Bilirubin [Mass/Vol] 0.5 mg/dL Normal 0.2-1.0 [facility] Comment on above: Performed By: #### L IPID, CMP #### [facility] [address] [place] [address] [address] Nabil Che Calcium [Mass/Vol] 9.1 mg/dL Normal 8.5-10.1 [facility] Comment on above: Performed By: #### L IPID, CMP #### [facility] [address] [place] [address] Dr. Nabil Che Chloride [Moles/Vol] 104 mmol/L Normal 98-107 [facility] Comment on above: Performed By: #### L IPID, CMP #### [facility] [address] [place] [address] Dr. Nabil Che CO2 [Moles/Vol] 29.7 mmol/L Normal 21.0-32.0 [facility] Comment on above: Performed By: #### L IPID, CMP #### [facility] [address] [place] [address] Dr. Nabil Che Creatinine [Mass/Vol] 1.07 mg/dL Normal 0.70-1.30 [facility] Comment on above: Performed By: #### L IPID, CMP #### [facility] [address] [place] [address] Dr. Nabil Che EGFR-AF SLOVAK >60 Normal >=60 [facility] Comment on above: Performed By: #### L IPID, CMP #### [facility] [address] [place] [address] Dr. Nabil Che EGFR-NON AF SLOVAK >60 Normal >=60 [facility] Comment on above: Performed By: #### L IPID, CMP #### [facility] [address] [place] [address] Dr. Nabil Che Globulin (S) [Mass/Vol] 4.8 g/dL Normal [facility] Comment on above: Performed By: #### L IPID, CMP #### [facility] [address] [place] [address] Dr. Nabil Che Glucose [Mass/Vol] 106 mg/dL Normal 74-106 [facility] Comment on above: Performed By: #### L IPID, CMP #### [facility] [address] [place] [address] [address] Nabil Che Potassium [Moles/Vol] 4.6 mmol/L Normal 3.5-5.1 [facility] Comment on above: Performed By: #### L IPID, CMP #### [facility] [address] [place] [address] Dr. Nabil Che Protein [Mass/Vol] 8.5 g/dL Critically high 6.4-8.2 [facility] Comment on above: Performed By: #### L IPID, CMP #### [facility] [address] [place] [address] Dr. Nabil Che Sodium [Moles/Vol] 141 mmol/L Normal 136-145 [facility] Comment on above: Performed By: #### L IPID, CMP #### [facility] [address] [place] [address] Dr. Nabil Che [place] nitrogen [Mass/Vol] 13.0 mg/dL Normal 7.0-18.0 [facility] Comment on above: Performed By: #### L IPID, CMP #### [facility] [address] [place] [address] Dr. Nabil Che [place] nitrogen/Creatinine [Mass ratio] 12.1 mg/mg Normal [facility] Comment on above: Performed By: #### L IPID, CMP #### [facility] [address] [place] [address] Dr. Nabil Che PROTIMEon 09-04-2022 INR Coag (PPP) [Relative time] 3.32 {INR} Normal [facility] Comment on above: Performed By: #### P T #### [facility] [address] [place] [address] Dr. Nabil Che INR GUIDELINES SEE BELOW Normal [facility] Comment on above: Result Comment: LETY RED INR: 2.0 - 3.0 CONDITIONS NOT LISTED BELOW 2.5 - 3.5 FOR PROSTHETIC HEART VALVE REPLACEMENT 2.5 - 3.5 RECURRENT THROMBOSIS Performed By: #### P T #### [facility] [address] [place] [address] Dr. Nabil Che PT Coag (PPP) [Time] 32.9 s Critically high 9.0-11.6 [facility] Comment on above: Performed By: #### P T #### [facility] [address] [place] [address] Dr. Nabil Che Lab Reportson 07-30-2022 Lab Reports [id number] A8#1.00CD:127 Normal [facility] PROTIMEon 07-27-2022 INR Coag (PPP) [Relative time] 2.82 {INR} Normal [facility] Comment on above: Performed By: #### P T #### [facility] [address] [place] [address] Dr. Nabil Che INR GUIDELINES SEE BELOW Normal [facility] Comment on above: Result Comment: LETY RED INR: 2.0 - 3.0 CONDITIONS NOT LISTED BELOW 2.5 - 3.5 FOR PROSTHETIC HEART VALVE REPLACEMENT 2.5 - 3.5 RECURRENT THROMBOSIS Performed By: #### P T #### [facility] [address] [place] [address] Dr. Nabil Che PT Coag (PPP) [Time] 28.2 s Critically high 9.0-11.6 [facility] Comment on above: Performed By: #### P T #### [facility] [address] [place] [address] Dr. Nabil Che CBC AUTO DIFFon 06-07-2022 BASO # 0.1 103/ul Normal 0.0-0.1 [facility] Comment on above: Performed By: #### P SASC #### [facility] [address] [place] [address] Dr. Nabil Che Basophils/100 WBC (Bld) 1.1 % Normal 0.2-2.0 [facility] Comment on above: Performed By: #### P SASC #### [facility] [address] [place] [address] Dr. Nabil Che EO # 0.4 103/ul Normal 0.0-0.7 [facility] Comment on above: Performed By: #### P SASC #### [facility] [address] [place] [address] Dr. Nabil Che Eosinophils/100 WBC (Bld) 3.7 % Normal 0.9-7.0 [facility] Comment on above: Performed By: #### P SASC #### [facility] [address] [place] [address] Dr. Nabil Che Erythrocyte distribution width (RBC) [Ratio] 13.2 % Normal 11.0-15.0 [facility] Comment on above: Performed By: #### P SASC #### [facility] [address] [place] [address] Dr. Nabil Che Hematocrit (Bld) [Volume fraction] 49.2 % Normal 42.0-54.0 [facility] Comment on above: Performed By: #### P SASC #### [facility] [address] [place] [address] Dr. Nabil Che Hemoglobin (Bld) [Mass/Vol] 17.3 g/dL Normal 14.0-18.0 [facility] Comment on above: Performed By: #### P SASC #### [facility] [address] [place] [address] Dr. Nabil Che IG # 0.04 10e3/ul Critically high 0.00-0.03 [facility] Comment on above: Performed By: #### P SASC #### [facility] [address] [place] [address] Dr. Nabil Che IG % 0.4 % Normal 0.0-0.5 [facility] Comment on above: Performed By: #### P SASC #### [facility] [address] [place] [address] Dr. Nabil Che LYMPH # 2.5 103/ul Normal 1.2-3.8 [facility] Comment on above: Performed By: #### P SASC #### [facility] [address] [place] [address] Dr. Nabil Che Lymphocytes/100 WBC (Bld) 26.3 % Normal 20.5-60.0 [facility] Comment on above: Performed By: #### P SASC #### [facility] [address] [place] [address] Dr. Nabil Che MANUAL DIFF REQ NO Normal [facility] Comment on above: Performed By: #### P SASC #### [facility] [address] [place] [address] Dr. Nabil Che MCH (RBC) [Entitic mass] 31.2 pg Normal 25.9-34.0 [facility] Comment on above: Performed By: #### P SASC #### [facility] [address] [address] [address] Nabil Che MCHC (RBC) [Mass/Vol] 35.2 g/dL Normal 29.9-35.2 [facility] Comment on above: Performed By: #### P SASC #### [facility] [address] [place] [address] Dr. Nabil Che MCV (RBC) [Entitic vol] 88.6 fL Normal 80.0-94.0 [facility] Comment on above: Performed By: #### P SASC #### [facility] [address] [place] [address] Dr. Nabil Che MONO # 1.3 103/ul Critically high 0.3-0.8 [facility] Comment on above: Performed By: #### P SASC #### [facility] [address] [place] [address] Dr. Nabil Che Monocytes/100 WBC (Bld) 13.3 % Critically high 1.7-12.0 [facility] Comment on above: Performed By: #### P SASC #### [facility] [address] [place] [address] Dr. Nabil Che NEUT # 5.2 103/ul Normal 1.4-6.5 [facility] Comment on above: Performed By: #### P SASC #### [facility] [address] [place] [address] Dr. Nabil Che Neutrophils/100 WBC (Bld) 55.2 % Normal 43.0-75.0 [facility] Comment on above: Performed By: #### P SASC #### [facility] [address] [place] [address] Dr. Nabil Che Platelet mean volume (Bld) [Entitic vol] 10.4 fL Normal 9.5-13.5 [facility] Comment on above: Performed By: #### P SASC #### [facility] [address] [place] [address] Dr. Nabil Che PLT 199 103/ul Normal 150-450 [facility] Comment on above: Performed By: #### P SASC #### [facility] [address] [address] [address] Nabil Che RBC 5.55 106/ul Normal 4.70-6.10 [facility] Comment on above: Performed By: #### P SASC #### [facility] [id number] Nabil Che WBC 9.4 103/ul Normal 4.0-11.0 [facility] Comment on above: Performed By: #### P SASC #### [facility] [address] [address] [address] Nabil Che Office Visit (Cardiology)on 06-07-2022 [...] Weight Tips; Status:Complete - Retrospective Authorization; Done: [id number] Some eating tips that can help you lose weight.; Status:Complete - Retrospective Authorization; Done: [id number] Paroxysmal atrial fibrillation IO EKG Electrocardiogram- 12 Lead; Status:Complete; Done: [id number] SocHx: Current every day smoker You need to stop smoking. Though it is not easy, more than half of all adult smokers have quit. We encourage you to write down all the reasons you should quit smoking and set a quit date for yourself. Ask us how we can help. You may also call 9-101-SXEJ-NOW for free resources and assistance.; Status:Complete - Retrospective Authorization; Done: [id number] Tobacco Use Screening; Status:Complete; Done: [id number] Patient Instructions Please bring all medicines, vitamins, [...] any palpitations since he started taking magnesium ehcf-vkb-lnzache. He is on Multaq and his rhythm [...] 10 MG Oral TabletTake 1 tablet daily [place] 3 1000 MG Oral CapsuleTAKE 2 CAPSULE [...] negative for complaint. Vitals Vital Signs Recorded: [id number] 09:01AM Heart Rate52, L Radial Bbtmomgs225, LUE, Sitting Fqkijodaw99, LUE, Sitting Height5 ft 11 in Trglop233 lb BMI Ajoqbhctzt05.75 kg/m2 BSA Calculated2.29 Tobacco Usea) Yes Patient encouraged to stop using tobacco productsYes PHQ-2 #1. Over the last 2 weeks have you felt down, depressed or hopeless? (If yes, answer PHQ-9 below)No PHQ-2 #2. Ove (more content not included)... Normal [employer] PROF CHEM 8 (BAS METB)on Anion gap [Moles/Vol] 12.2 mmol/L Normal [facility] Comment on above: Performed By: #### P SASC #### [facility] [address] [address] [address] Nabil Che Calcium [Mass/Vol] 9.1 mg/dL Normal 8.5-10.1 [facility] Comment on above: Performed By: #### P SASC #### [facility] [address] [address] [address] Nabil Che Chloride [Moles/Vol] 103 mmol/L Normal 98-107 [facility] Comment on above: Performed By: #### P SASC #### [facility] [address] [address] [address] Nabil Che CO2 [Moles/Vol] 29.0 mmol/L Normal 21.0-32.0 [facility] Comment on above: Performed By: #### P SASC #### [facility] [address] [address] [address] Nabil Che Creatinine [Mass/Vol] 1.01 mg/dL Normal 0.70-1.30 [facility] Comment on above: Performed By: #### P SASC #### [facility] [address] [address] [address] Nabil Che EGFR-AF SLOVAK >60 Normal >=60 [facility] Comment on above: Performed By: #### P SASC #### [facility] [address] [address] [address] Nabil Che EGFR-NON AF [place] >60 Normal >=60 [facility] Comment on above: Performed By: #### P SASC #### [facility] [address] [address] [address] Nabil Che Glucose [Mass/Vol] 113 mg/dL Critically high 74-106 [facility] Comment on above: Performed By: #### P SASC #### [facility] [address] [address] [address] Nabil Che Potassium [Moles/Vol] 4.2 mmol/L Normal 3.5-5.1 [facility] Comment on above: Performed By: #### P SASC #### [facility] [address] [address] [address] Nabil Che Sodium [Moles/Vol] 140 mmol/L Normal 136-145 [facility] Comment on above: Performed By: #### P SASC #### [facility] [address] [address] [address] Nabil Che [place] nitrogen [Mass/Vol] 9.0 mg/dL Normal 7.0-18.0 [facility] Comment on above: Performed By: #### P SASC #### [facility] [address] [address] [address] Nabil Che [place] nitrogen/Creatinine [Mass ratio] 8.9 mg/mg Normal [facility] Comment on above: Performed By: #### P SASC #### [facility] [address] [address] [address] Nabil Che Tobacco Screening.on 023 Adult depression screening assessment No [facility] -[place] 250 DO Work Phone: Tobacco use status CPHS a) Yes [facility] -[place] 250 DO Work Phone: Tobacco Screening. Yes [facility] diology -[place] 250 DO Work Phone: Lab Reportson 05-27-2022 Lab Reports [id number] 92#1.00CD:127 Normal [facility] PROTIMEon 05-24-2022 INR Coag (PPP) [Relative time] 2.87 {INR} Normal [facility] Comment on above: Performed By: #### P T #### [facility] [address] [place] [address] Dr. Nabil Che INR GUIDELINES SEE BELOW Normal [facility] Comment on above: Result Comment: LETY RED INR: 2.0 - 3.0 CONDITIONS NOT LISTED BELOW 2.5 - 3.5 FOR PROSTHETIC HEART VALVE REPLACEMENT 2.5 - 3.5 RECURRENT THROMBOSIS Performed By: #### P T #### [facility] [address] [place] [address] Dr. Nabil Che PT Coag (PPP) [Time] 28.7 s Critically high 9.0-11.6 [facility] Comment on above: Performed By: #### P T #### [facility] [address] [place] [address] Dr. Nabil Che Lab Report[facility] 04-29-2022 Lab Reports [id number] F3#1.00CD:127 Normal [facility] PROTIMEon 04-27-2022 INR Coag (PPP) [Relative time] 2.17 {INR} Normal [facility] Comment on above: Performed By: #### P SASC #### [facility] [address] [place] [address] Dr. Nabil Che INR GUIDELINES SEE BELOW Normal [facility] Comment on above: Result Comment: LETY RED INR: 2.0 - 3.0 CONDITIONS NOT LISTED BELOW 2.5 - 3.5 FOR PROSTHETIC HEART VALVE REPLACEMENT 2.5 - 3.5 RECURRENT THROMBOSIS Performed By: #### P SASC #### [facility] [address] [address] [address] Nabil Che PT Coag (PPP) [Time] 22.3 s Critically high 9.0-11.6 [facility] Comment on above: Performed By: #### P SASC #### [facility] [address] [place] [address] Dr. Nabil Che Lab Report[facility] 04-10-2022 Lab Reports [id number] DD#1.00CD:127 Normal [facility] PROTIME[facility] 04-07-2022 INR Coag (PPP) [Relative time] 1.09 {INR} Normal [facility] Comment on above: Performed By: #### P T #### [facility] [address] [place] [address] Dr. Nabil Che INR GUIDELINES SEE BELOW Normal [facility] Comment on above: Result Comment: LETY RED INR: 2.0 - 3.0 CONDITIONS NOT LISTED BELOW 2.5 - 3.5 FOR PROSTHETIC HEART VALVE REPLACEMENT 2.5 - 3.5 RECURRENT THROMBOSIS Performed By: #### P T #### [facility] [address] [place] [address] Dr. Nabil Che PT Coag (PPP) [Time] 11.7 s Critically high 9.0-11.6 [facility] Comment on above: Performed By: #### P T #### [facility] [address] [place] [address] Dr. Nabil Che Lab Report[facility] 03-28-2022 Lab Reports [id number] 1F#1.00CD:127 Normal [facility] PROTIMEon 03-27-2022 INR Coag (PPP) [Relative time] 1.11 {INR} Normal [facility] Comment on above: Performed By: #### P SASC #### [facility] [address] [place] [address] Dr. Nabil Che INR GUIDELINES SEE BELOW Normal [facility] Comment on above: Result Comment: LETY RED INR: 2.0 - 3.0 CONDITIONS NOT LISTED BELOW 2.5 - 3.5 FOR PROSTHETIC HEART VALVE REPLACEMENT 2.5 - 3.5 RECURRENT THROMBOSIS Performed By: #### P SASC #### [facility] [address] [place] [address] Dr. Nabil Che PT Coag (PPP) [Time] 11.9 s Critically high 9.0-11.6 [facility] Comment on above: Performed By: #### P SASC #### [facility] [address] [place] [address] Dr. Nabil Che Lab Report[facility] 02-23-2022 Lab Reports [id number] 7C#1.00CD:127 Normal [facility] PROTIMEon 02-22-2022 INR Coag (PPP) [Relative time] 1.84 {INR} Normal [facility] Comment on above: Performed By: #### P T #### [facility] [address] [place] [address] Dr. Nabil Che INR GUIDELINES SEE BELOW Normal [facility] Comment on above: Result Comment: LETY RED INR: 2.0 - 3.0 CONDITIONS NOT LISTED BELOW 2.5 - 3.5 FOR PROSTHETIC HEART VALVE REPLACEMENT 2.5 - 3.5 RECURRENT THROMBOSIS Performed By: #### P T #### [facility] [address] [place] [address] Dr. Nabil Che PT Coag (PPP) [Time] 19.1 s Critically high 9.0-11.6 [facility] Comment on above: Performed By: #### P T #### [facility] [address] [place] [address] Dr. Nabil Che Lab Report[facility] 01-26-2022 Lab Reports [id number] E8#1.00CD:127 [facility] PROTIMEon 01-25-2022 INR Coag (PPP) [Relative time] 1.91 {INR} Normal [facility] Comment on above: Performed By: #### P SASC #### [facility] [address] [address] [address] Nabil Che INR GUIDELINES SEE BELOW Normal [facility] Comment on above: Result Comment: LETY RED INR: 2.0 - 3.0 CONDITIONS NOT LISTED BELOW 2.5 - 3.5 FOR PROSTHETIC HEART VALVE REPLACEMENT 2.5 - 3.5 RECURRENT THROMBOSIS Performed By: #### P SASC #### [facility] [address] [address] [address] Nabil Che PT Coag (PPP) [Time] 19.8 s Critically high 9.0-11.6 [facility] Comment on above: Performed By: #### P SASC #### [facility] [address] [place] [address] Dr. Nabil Che Consultation Noteon 12-07-19 Consultation Note [id number] 8#1.00CD:127 [facility] Tobacco Screening.on 022 Adult depression screening assessment No [facility] [facility] 250 DO Work Phone: Tobacco use status CPHS a) Yes [facility] [facility] 250 DO Work Phone: Tobacco Screening. Yes [facility] [facility] 250 DO Work Phone: Lab Report[facility] 11-22-2021 Lab Reports [id number] 73#1.00CD:127 [facility] CBC AUTO DIFFon 11-21-2021 BASO # 0.1 103/ul Normal 0.0-0.1 [facility] Comment on above: Performed By: #### C BC #### [facility] [address] [address] [address] Nabil Che Basophils/100 WBC (Bld) 0.8 % Normal 0.2-2.0 [facility] Comment on above: Performed By: #### C BC #### [facility] [address] [address] [address] Nabil Che EO # 0.3 103/ul Normal 0.0-0.7 [facility] Comment on above: Performed By: #### C BC #### [facility] [address] [place] [address] Dr. Nabil Che Eosinophils/100 WBC (Bld) 3.2 % Normal 0.9-7.0 [facility] Comment on above: Performed By: #### C BC #### [facility] [address] [place] [address] Dr. Nabil Che Erythrocyte distribution width (RBC) [Ratio] 13.1 % Normal 11.0-15.0 [facility] Comment on above: Performed By: #### C BC #### [facility] [address] [place] [address] Dr. Nabil Che Hematocrit (Bld) [Volume fraction] 46.8 % Normal 42.0-54.0 [facility] Comment on above: Performed By: #### C BC #### [facility] [address] [place] [address] Dr. Nabil Che Hemoglobin (Bld) [Mass/Vol] 16.4 g/dL Normal 14.0-18.0 [facility] Comment on above: Performed By: #### C BC #### [facility] [address] [place] [address] Dr. Nabil Che IG # 0.04 10e3/ul Critically high 0.00-0.03 [facility] Comment on above: Performed By: #### C BC #### [facility] [address] [place] [address] Dr. Nabil Che IG % 0.4 % Normal 0.0-0.5 [facility] Comment on above: Performed By: #### C BC #### [facility] [address] [place] [address] Dr. Nabil Che LYMPH # 2.8 103/ul Normal 1.2-3.8 [facility] Comment on above: Performed By: #### C BC #### [facility] [address] [place] [address] Dr. Nabil Che Lymphocytes/100 WBC (Bld) 29.6 % Normal 20.5-60.0 [facility] Comment on above: Performed By: #### C BC #### [facility] [address] [place] [address] Dr. Nabil Che MANUAL DIFF REQ NO Normal [facility] Comment on above: Performed By: #### C BC #### [facility] [address] [place] [address] Dr. Nabil Che MCH (RBC) [Entitic mass] 31.3 pg Normal 25.9-34.0 [facility] Comment on above: Performed By: #### C BC #### [facility] [address] [place] [address] Dr. Nabil Che MCHC (RBC) [Mass/Vol] 35.0 g/dL Normal 29.9-35.2 [facility] Comment on above: Performed By: #### C BC #### [facility] [address] [place] [address] Dr. Nabil Che MCV (RBC) [Entitic vol] 89.3 fL Normal 80.0-94.0 [facility] Comment on above: Performed By: #### C BC #### [facility] [address] [place] [address] Dr. Nabil Che MONO # 1.4 103/ul Critically high 0.3-0.8 [facility] Comment on above: Performed By: #### C BC #### [facility] [address] [place] [address] Dr. Nabil Che Monocytes/100 WBC (Bld) 14.5 % Critically high 1.7-12.0 [facility] Comment on above: Performed By: #### C BC #### [facility] [address] [place] [address] Dr. Nabil Che NEUT # 4.9 103/ul Normal 1.4-6.5 [facility] Comment on above: Performed By: #### C BC #### [facility] [address] [place] [address] Dr. Nabil Che Neutrophils/100 WBC (Bld) 51.5 % Normal 43.0-75.0 [facility] Comment on above: Performed By: #### C BC #### [facility] [address] [place] [address] Dr. Nabil Che Platelet mean volume (Bld) [Entitic vol] 10.6 fL Normal 9.5-13.5 [facility] Comment on above: Performed By: #### C BC #### [facility] [address] [place] [address] Dr. Nabil Che PLT 173 103/ul Normal 150-450 [facility] Comment on above: Performed By: #### C BC #### [facility] [address] [place] [address] Dr. Nabil Che RBC 5.24 106/ul Normal 4.70-6.10 [facility] Comment on above: Performed By: #### C BC #### [facility] [address] [place] [address] Dr. Nabil Che WBC 9.4 103/ul Normal 4.0-11.0 [facility] Comment on above: Performed By: #### C BC #### [facility] [address] [place] [address] Dr. Nabil Che PROF CHEM 8 (BAS METB)on Anion gap [Moles/Vol] 11.7 mmol/L Normal [facility] Comment on above: Performed By: #### B MP #### [facility] [address] [place] [address] Dr. Nabil Che Calcium [Mass/Vol] 8.1 mg/dL Critically low 8.5-10.1 [facility] Comment on above: Performed By: #### B MP #### [facility] [address] [address] [address] Nabil Che Chloride [Moles/Vol] 103 mmol/L Normal 98-107 [facility] Comment on above: Performed By: #### B MP #### [facility] [address] [address] [address] Nabil Che CO2 [Moles/Vol] 28.1 mmol/L Normal 21.0-32.0 [facility] Comment on above: Performed By: #### B MP #### [facility] [address] [address] [address] Nabil Che Creatinine [Mass/Vol] 1.34 mg/dL Critically high 0.70-1.30 [facility] Comment on above: Performed By: #### B MP #### [facility] [address] [address] [address] Nabil Che EGFR-AF [place] >60 Normal >=60 [facility] Comment on above: Performed By: #### B MP #### [facility] [address] [address] [address] Nabil Che EGFR-NON AF [place] 54 mL/min/1.73m2 Critically low >=60 [facility] Comment on above: Performed By: #### B MP #### [facility] [address] [address] [address] Nabil Che Glucose [Mass/Vol] 87 mg/dL Normal 74-106 [facility] Comment on above: Performed By: #### B MP #### [facility] [address] [address] [address] Nabil Che Potassium [Moles/Vol] 4.8 mmol/L Normal 3.5-5.1 [facility] Comment on above: Performed By: #### B MP #### [facility] [address] [address] [address] Nabil Che Sodium [Moles/Vol] 138 mmol/L Normal 136-145 [facility] Comment on above: Performed By: #### B MP #### [facility] [address] [address] [address] Nabil Che [place] nitrogen [Mass/Vol] 14.0 mg/dL Normal 7.0-18.0 [facility] Comment on above: Performed By: #### B MP #### [facility] [address] [address] [address] Nabil Che [place] nitrogen/Creatinine [Mass ratio] 10.4 mg/mg Normal [facility] Comment on above: Performed By: #### B MP #### [facility] [facility] [address] [address] [address] Nabil Che PROTIMEon 11-21-2021 INR Coag (PPP) [Relative time] 2.25 {INR} Normal [facility] Comment on above: Performed By: #### P SASC #### [facility] [address] [place] [address] Dr. Nabil Che INR GUIDELINES SEE BELOW Normal [facility] Comment on above: Result Comment: LETY RED INR: 2.0 - 3.0 CONDITIONS NOT LISTED BELOW 2.5 - 3.5 FOR PROSTHETIC HEART VALVE REPLACEMENT 2.5 - 3.5 RECURRENT THROMBOSIS Performed By: #### P SASC #### [facility] [address] [address] [address] Nabil Che PT Coag (PPP) [Time] 23.0 s Critically high 9.0-11.6 [facility] Comment on above: Performed By: #### P SASC #### [facility] [address] [address] [address] Nabil Che Lab Reportson 09-27-2021 Lab Reports [id number] 7B#[id number]:127 Normal [facility] Lab Reports [id number]#[id number]:127 Normal [facility] Outside [facility] Correspo ndenceon 09-26-2021 Outside [facility] Correspondence [id number] CC#1.00CD:127 Normal [facility] PROTIMEon 09-26-2021 INR Coag (PPP) [Relative time] 1.70 {INR} Normal [facility] Comment on above: Performed By: #### P SASC #### [facility] [address] [address] [address] Nabil Che INR GUIDELINES SEE BELOW Normal [facility] Comment on above: Result Comment: LETY RED INR: 2.0 - 3.0 CONDITIONS NOT LISTED BELOW 2.5 - 3.5 FOR PROSTHETIC HEART VALVE REPLACEMENT 2.5 - 3.5 RECURRENT THROMBOSIS Performed By: #### P SASC #### [facility] [address] [address] [address] Nabil Che PT Coag (PPP) [Time] 17.7 s Critically high 9.0-11.6 [facility] Comment on above: Performed By: #### P SASC #### [facility] [address] [address] [address] Nabil Che Reminderson 09-26-2021 Reminders -- From: Jeancarlos GUDINO DO To: [facility] - Clinical; Sent: 09/21/2021 19:58:49 EDT Show up: 09/21/2021 19:59:00 EDT Subject: Ambulatory Reminder Due Date/Time: 09/22/2021 19:58:00 EDT MRI is negative Results: Date Result Type Result Name 09/21/2021 17:20 Radiology MRI Brain w/ + w/o Contrast LMOM for patient to return call. Patient returns call, message given and verbalized understanding. 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 CD:[id number] IAe0sOa+PGhlYWQ+PE1 GZWRrX59zsKEwjJ0FP2 hPLP4KNGMJRENURM8MH Y9soOM3TEnmV3UgeuMi DgllxCBcBC28VZk3FBN 2oPqsAHlexJ0jyKXjZ8 i1ZiEmSY55pC22YKlgK KGiNoQ8SoDuriekjBSy X1oaEdDnwJNoSin+PHR hYmxlIHdpZHRoPScxMD GzIwZpbNvwWJ6gAy4bW GVyLWNvbGxhcHNlOiBj y5mgCTScIKsiWD6krBe lC0AcySP6APVjr7z9Yi 48dHI+TIHqIPH0dBkuW Yuxa291DpPhu0qgVJJ3 bIDsZPpiHQO6A00zp0Q 1WSPgSKTqMSL8yUW3wZ 5mpJpozoqkL1AmnWFrZ sJ0LDT4oYRlrV9dvLve xybapU5vVps+L73CNI9 ONUOSDT7VIoj2K9KgEn wvdHI+GE99DHFzEZ57h MQwdLAuc8tniHa3KxFt RYDxQXS4uDmkDVgxs7C cKWBlK23nxSUeh7Q5DT BoyIgigXAxPjPptRM7h E4aOIsbzarjs1sagdpk Jizax6kdmn10sV57T19 sZRxcNCEdESV6UTWwLP WzwBjqii8lfE9tYr0+I Isao0bxg6fxnKl1RkWj LYLnqiQnxYlaCPV8t5C fBv54B9VxyVnmj7XgAh r1sc25yRYgw7E1lPO7Y ScbKYYysG4aEBraYpW9 BUGoGpZzrP43rRAwORe rQt9qwYfuqNamZR0wFN ZadtzmMUBwjB9cIVCmp JVjzZzhIQ1tZDSlvgmv w335SmZxJQX2GEUdpUI kV7RsrT6fHuTrBSLxZZ VrS1IjzGLyJEkxM045Q EjlOsG5FRZmseAvW4Su IXYfmIavFrV3b5N4Np6 Xl7OzocqoCJX6SBgiFR J1TrMvKvYwTgZ0K7SeN pl3ZGQbbDfsJY7jL7Uu EOTwhnoxsetwyGN4KJX kPVHouX99sPUuXHqmQe 8in9S0k445NYKwKFBcu X38Wr5hrTeuNUJfkMIG uQ9kjzimk0ifmnwhTgL zUUFuJQv8GCf5JSAnoN mhZaWtDKD1AsS8LWZ1y UErzG9vbKlnlsfyiM0i Oyc+W12htI1gYNJ7AQB 0tfifSURflfKcPL65HW 36V5CqUsyhcKOrjYL+P FSspsZmuIpnWH2kHfHv h5ntv1XfCTcrT2TbLNU wQMbqKfx4MXEhWPZ0tX U0fQ9gRBCeNJfrv5L9l TM1J1ErgjPpag0eg0vz BVZwZDepK77yfDVba5R 0CIKecBK0YUWbfVzfEb JlmT72Few+PGNvbGdyb 9IuHtuti9rue5bleEl5 IjMwJSIgdmFsaWduPSJ 7i1CsZf50N40dQEyfKG RoPSIxNSUiIHZhbGlnb b3ndC0bFi7+PGNvbCB3 hUQ4kK2tOBNeAwK0ACn nU156DtBinBElLpjgy8 hhd6mlvBp0KtLeDBXco rOgqMxtSPX2k5KdQn47 T01eEXrqOAImAAMcQGD iUASrfOngle7wpL0yLd 8+GZ9do1oozk15jZ54j HI+VBFkBFW1hUsvEUbv WFMknI9tGNsdBdU0OXY vPhKjwD69mHMmUYwtEs 6nrPxkyAbcTB8dGZNrc tonk741WbNkc8uyBAJu eSJnCFtpKMS2H46wt5I 0MOTfOPRkEEN7fPE6gD 1hbGlnbjogbGVmdDsgd cPzeDcuEPowBBicN637 IHRvcDsnPlBhdGllbnQ tNmUjPGa3B2LpYiu8WH LmwJlkIJ2ilWOqKWxfS m9xtKfnsJmdKY7dOAQp jrbky022JvAjs7miEED yxPTyVIxvOHU8S47jr5 D0MEGaXSDlCKM5mZO9o C0ymOczejggmPBkaKzj tpAjzOqdOYdyVAliD90 6IHRvcDsnPkJpcnRoIE YppYS1ZH28PT35qVNrh 0E5yGO1H6NdBWXhkcje mcutyFA4GYTfPPBsrI6 3Vi3myGiiPv8hLINtET Q5EWLyfKPwL8HlyI6dO oUwSDLuCMPhO0KlxMZl OHdeB591SEarDiK9MCO kysZrC2AxKWGhkJljWr C4y8O4Pa5CN4W3GF70D V80vCOju0Z0tFU7M5Ly TYWvucmixlheoOL5MIC hZFRmzX04Ro1zmThqPw 2cKRFgOTS3XSErtZIoQ 2SabQ1lClPrFVUuVWIh T9XwsQPgLOrgR466YTg qScF4UZPgdlAkL3OlJT TzqVvqUiZ1j6D2Dr4IE Cs8JL94LV22jZAqd0U9 yKJ0J4LxTHYbscxhxtx nsRV1YINaOPAxqO22Jq 9amEgmSp2oTOXeUAI8N RDnsCZuF2BlbE1yYzHr ZARiFHVbD9VqjSDfMRp uD344QOtfBuX3JZPvvf YhQ1YeLGXqyMgnJcO4a 0V4Cj8CCDTeCV70FDA3 wYW9QL20TX32C8WqDyg vdGFibGU+PHRhYmxlIH dpZHRoPScxMDAlJyBzd NqqPT4rOs4vNHHdXGZi cVjrjPJhEfUup0rfOVJ sGQiaZR4hqMfsX4UryL M0VOVrn4m5Dt57M54nH 3JvdXA+NLJozYR3gSE1 vP7dAkDvCjD0IMusC79 5IzQymGIrFfbtm3kuk2 fwvCr7ZfX0ROZxizVqm TaaMCW4c0QuDv00M44c IHdpZHRoPSIxNSUiIHZ nfLomxs0emI0hDx0+PG UjkNG8nNK1oT8yZjCxD cZ8UJbaP116ArXiiMTd Mnppw1fic7wupYs8VrZ qFHBayoRryQvbAST0l5 AdTj26D7HqdQfzu1FbW fb4fs07uABmk3S6iNZ1 V1BtBCHegsntnZFvgHa nRW7cSEKgwtcbRQSvjR 9jGBUsS4y8QbMcTsE0O TsdJ8NjgpH4XUDmjUMw RSdpWLO1I22ju5S7ZML uLKXuNNS9eYY1dS7sbP lnbjogbGVmdDsgdmVyd WovPUnhOLwrU839VPHi wSywZQMzlL4qSPUvdOL uwDztRU3tEQQqmwnzOk aDGiJZDOUZPGEUQZR3B 4JkQsy5TJQpfTusLU5r kKWhPTidCj3cbRrizHe wPC0pXDWpbkaaXDVfjB 7yZCEyyMMfpMbhJF8vA AEppkaeq378DbFlYXC0 TSVqhGGjB0VnoW4gXlJ tAVXfHJMbH6HwzZOiOV qzX526JStxKpN8JDYay dFnE6DtMXHyyUnmPrJ5 c0Q0Hy7gBx4rRP9dZKR pST63OB44wZEbw8H5hJ T9P0SgXOQghhnzthiaf FC5PBSqLQOobI91xUKd MWqyDi3tg8D9p215CHX cYXOhgG93Nb1vgVzdBY ItaUKNnS5wbecgh1ykx achRnRpFUFeZFh4MSz8 SPEamLenTbSwLJJ0WrK 5GET8oNYojH7kiFkohq aauH3yFry+NjAgWWVhc qE1B0MjLfd6ACKpzPir ZS4ubFFhNXksNf9vqKu kdImoYG8rINZogcntNC ZpsQ0vJGOaiMWwfIoqI F2rDGVxrozlv921TrQf SXA2JNZcpLLzC1CeoL4 gKuBuOBOyWIPtT7YhyG OaBCrxR390ATtiYxU8W BFtrrIqC3WpFHPkzEfu AkS0z8Y4Cy2BITgaKS5 9IB40dEGyw0R1fII7B9 CvQANnpphrsegukZG3I CSkTHJhjB95dWYuEJiw Sd9cm7K0a852UDGnEVS ppL72Dj7akVllZMDquL MMaR6qgebts5eombomC iUrELMcLFa8SMm8ERKn eYbkAgQoYFX1VmP8YYL 7lOXgfF0tkFqbfisusI 9wOyc+K1M3nYG0hAXga DwvdGQ+IK66ja10J6Op TbroWtm9MCYsIEP5xXR 6dA4vNDLzPPsfw7M2rE B9J0FfkbSxuk2zh7epA WYbBFgiK73pgEZxx5C9 QQPcjNP0EMYgaWxbVrI qmM60Mlj+PGNvbGdyb3 RaFighh4htw8gydNb5H jMwJSIgdmFsaWduPSJ0 l7TuVi12Q23lWRhyTKP oPSIzMCUiIHZhbGlnbj 6jdB6jKo9+YNVjqIO9c RJ9kL7xSiIaUrL4JVwx S241CbKmmUAqTlrjt0t wd1dmiXn4HpWuZITlok BgaQtlQWV7m5UaGs72X 8IztPdem4AmTau2qm98 lXZad6X2mGM6H6NgPZM mndqpoQFniDzuFQ5kII YhlvmuSRQdsL3hIFSwM 5n0NaUzCfA7REhxC8By fbU3KWDvvKBmIDZjmDR RwV3opptgw1qvrhqyFv DnYHAaXAl5DIv8ZBNds YvsXyJhTSA1PgT7XKB4 cPCmlL4dkBhvuatwmC9 wOyc+VIb9p4gptLWiRM 6iwBR8SD17ZG27eEIsw 9G9uAT7L1FwLHVnvdjx bggulFJ6QIGyTMZleQ0 1Ux2xbVznJz0kMFAyRF R9RLEvrNTlE4RsyD7xB oDlKYDuOCNfH1KdjMTm QVthQ777XJizLbK7SJS pgfMwL9IuRAUeiNnhOb O2z3R2Tz0XYD49UJ64N D17xPXzs7Q2wDF7H9Us KOKrfeibkjakrRM8NFA fJCSesA64Ft7srYefJd 4gBHCpGHE4DFOqvYIzI 5VtiA2vTcNnDQQyCQNj W2AmrMGaZHidG576AEp gPlA0LKZhdzDhX1GgFB BxsPzeCeR5k4Y8Jk7EY y81IM08QP95nSIis8G0 kSH9B2GcUWKekojdqlp lhFZ4BSZiCXJodL96Dg 8ojGiuPh4nRJNiOXR9V YCgwCJrM8RavE8tNwQd RJJqURYeS9PjuWYkBJc vV750GZzuXhM5TMTwsy KkC5QtZPWwyTwbKrY6k 7L0Js7TQHvgvuz6A2Ls PjwvdHI+ZO92PWWpVK9 6iSWbkVXzz5zfmJy6Vi DuEMDwKAT8yNuuBDzls 4PpUIIvU02amQHsm7P9 IGNv (more content not included)... Normal [facility] MRI Brain w/ + w/o Contrasto [...] MultiHance Contrast amount in ml's: 20 Normal [facility] Consent for Treatmenton 08-22 Consent for Treatment [id number] BD#1.00CD:127 Normal [facility] RAD - MRI Screening Formon 0 09-16-2021 RAD - MRI Screening Form [id number] 07#1.00CD:127 Normal [facility] Ambulatory Visit Summaryon 0 09-09-2021 Ambulatory Visit Summary ABHINAV FELIX Mine :1960 Visit Date:09/09/2021 Ambulatory Visit Instructions Your Diagnosis Preventative health care Trigeminal neuralgia Dizziness Hearing loss on right Your Care Team Attending Physician - Jeancarlos GUDINO DO Primary Care Physician - Jeancarlos GUDINO DO This Is Your Medications List cholestyramine (Questran [...] 1 year Where: [address] [place] [address]- You Need to Complete the Following MRI [...] prostate\.br\ Trigeminal neuralgia\.br\ Vasovagal attack\.br\ \.br\ [facility] Medicine Office/Clini c Noteon 09-09-2021 Family Medicine [...] he has his labs drawn monthly at [facility], but no results are documented or filed in the chart. Also takes Aciphex 20mg once daily. States this is still working well for him. Labs completed at [facility] on 09/05/21. States he has had a colonoscopy within the past [address] Estes ([facility]). History of Present Illness I have reviewed [...] spasm, # 30 tab(s), Refills(s) 0, Pharmacy: [facility]/pharmacy #[id number], 180.3, cm, 05/20/20 15:18:00 EST, Height/Length Dosing, 108.4, kg, 05/20/20 15:18:00 EST, Weight Dosing Follow-up With When Contact Information Jeancarlos GUDINO DO, FAM In 1 year [address] [place] [address]- Additional Instructions: Problem List/Past Medical History [...] influenza virus vaccine, inactivated 02/12/2013 Recorded Normal [facility] Comment on above: Result Comment: Elec tronically Signed By: Jeancarlos GUDINO DO\.br\Date and Time Signed: 09/09/21 10:19 EDT Lab Reportson 08-31-2021 Lab Reports [id number] F4#1.00CD:127 Normal [facility] Tobacco Screening.on 022 Tobacco use status CPHS a) Yes -[facility] y [address] DO Work Phone: Tobacco Screening. Yes -[facility] [address] DO Work Phone: CBCon 02-11-2019 Erythrocyte distribution width (RBC) [Ratio] 12.9 % Normal 11.5 - 14.5 [facility] [place] Comment on above: Performed By: #### C BC #### [address] [address] Hematocrit (Bld) [Volume fraction] 48.1 % Normal 41.0 - 52.0 [facility] [place] Comment on above: Performed By: #### C BC #### [address] [address] Hemoglobin (Bld) [Mass/Vol] 16.7 g/dL Normal 13.5 - 17.5 [facility] [place] Comment on above: Performed By: #### C BC #### [address] [address] MCHC (RBC) [Mass/Vol] 34.7 g/dL Normal 32.0 - 36.0 [facility] [place] Comment on above: Performed By: #### C BC #### [address] [address] MCV (RBC) [Entitic vol] 91 fL Normal 80 - 100 [facility] [place] Comment on above: Performed By: #### C BC #### [address] [address] Platelets (Bld) [#/Vol] 182 10*3/uL Normal 150 - 450 [facility] [place] Comment on above: Performed By: #### C BC #### [address] [address] RBC (Bld) [#/Vol] 5.26 x10E12/L Normal 4.50 - 5.90 [facility] [place] Comment on above: Performed By: #### C BC #### [address] [address] WBC (Bld) [#/Vol] 9.3 10*3/uL Normal 4.4 - 11.3 [facility] Comment on above: Performed By: #### C BC #### [address] [address] CREATININEon 02-11-2019 Creatinine [Mass/Vol] 0.87 mg/dL Normal 0.50 - 1.30 [facility] [place] Comment on above: Performed By: #### C REAT #### [address] [address] Creatinine [Mass/Vol] mg/dL Normal >60 [facility] [place] Comment on above: Result Comment: CALC ULATIONS OF ESTIMATED GFR ARE PERFORMED USING THE MDRD STUDY EQUATION FOR THE IDMS-TRACEABLE CREATININE METHODS. CLIN CHEM 2007;53:766-72 Performed By: #### C REAT #### [address] [address] ELECTROLYTE PANELon 02-12-20 19 Anion gap [Moles/Vol] 12 mmol/L Normal 10 - 20 [facility] [place] Comment on above: Performed By: #### E LECT #### [address] [address] Chloride [Moles/Vol] 105 mmol/L Normal 98 - 107 [facility] Comment on above: Performed By: #### E LECT #### [address] [address] HCO3 (Bld) [Moles/Vol] 28 mmol/L Normal 21 - 32 [facility] [place] Comment on above: Performed By: #### E LECT #### [address] [address] Potassium [Moles/Vol] 4.1 mmol/L Normal 3.5 - 5.3 [facility] [place] Comment on above: Performed By: #### E LECT #### [address] [address] Sodium [Moles/Vol] 141 mmol/L Normal 136 - 145 [facility] Comment on above: Performed By: #### E LECT #### [address] [address] UREA NITROGENon 02-11-2019 Urea nitrogen [Mass/Vol] 12 mg/dL Normal 6 - 23 [facility] [place] Comment on above: Performed By: #### U BELÉN #### [address] [address] ALT (SGPT)on 12-26-2017 ALT enzyme act/vol 18 U/L Normal 10-52 [facility] Comment on above: Performed By: #### 1 [id number] ####[facility] [address] [place] [address] AST (SGOT)on 12-26-2017 AST enzyme act/vol 20 U/L Normal 13-39 [facility] Comment on above: Performed By: #### 1 [id number] ####[facility] [address] [place] [address] CBCon 12-26-2017 Erythrocyte distribution width Auto Ratio (RBC) 13.4 % Normal 12.0-15.4 [facility] Comment on above: Performed By: #### 2 [id number] ####[facility] [address] [place] [address] Hematocrit Auto Volume Fraction (Bld) 48.6 % Normal 38.4-54.9 [facility] Comment on above: Performed By: #### 2 [id number] ####[facility] [address] [place] [address] Hemoglobin mass conc (Bld) 16.3 g/dL Normal 12.8-17.7 [facility] Comment on above: Performed By: #### 2 [id number] ####[facility] [address] [place] [address] MCH Auto Entitic mass (RBC) 31.0 pg Normal 27.5-32.9 [facility] Comment on above: Performed By: #### 2 [id number] ####[facility] [address] [place] [address] MCHC Auto mass conc (RBC) 33.5 g/dL Normal 30.5-35.4 [facility] Comment on above: Performed By: #### 2 [id number] ####[facility] [address] [place] [address] MCV Auto Entitic volume (RBC) 92.6 fL Normal 83.3-98.2 [facility] Comment on above: Performed By: #### 2 [id number] ####[facility] [address] [place] [address] NRBC Absolute 0.00 10*3/uL Normal [facility] Comment on above: Performed By: #### 2 [id number] ####[facility] [address] [place] [address] NRBC Automated 0.0 /100{WBCs} Normal [facility] Comment on above: Performed By: #### 2 [id number] ####[facility] [address] [place] [address] Platelet mean volume Auto Entitic volume (Bld) 12.0 fL Normal 9.9-12.1 [facility] Comment on above: Performed By: #### 2 [id number] ####[facility] [address] [place] [address] Platelets Auto #/vol (Bld) 156 10*3/uL Normal 155-404 [facility] Comment on above: Performed By: #### 2 [id number] ####[facility] [address] [place] [address] RBC Auto #/vol (Bld) 5.25 10*6/uL Normal 4.08-6.37 [facility] Comment on above: Performed By: #### 2 [id number] ####[facility] [address] [place] [address] RDW SD 45.5 fL Normal 39.3-48.6 [facility] Comment on above: Performed By: #### 2 [id number] ####[facility] [address] [place] [address] WBC Auto #/vol (Bld) 7.2 10*3/uL Normal 4.2-11.0 [facility] Comment on above: Performed By: #### 2 [id number] ####[address] [place] [address] Creatinineon 12-26-2017 Creatinine mass conc 0.92 mg/dL Normal 0.50-1.30 [facility] Comment on above: Performed By: #### 1 [id number] ####[address] [place] [address] GFR/1.73 sq M.predicted MDRD vol rate/area mL/min/{1.73_m2} Normal [facility] Comment on above: Result Comment: Inte rpretation for Chronic Kidney Disease:Stages 1&2 >60 Healthy or potential kidney damage.Mild decrease of GFR.Stage 3 30-59 Moderate decrease of GFR.Stage 4 15-29 Severe decrease of GFR.Stage 5 <15 Kidney failure or on dialysis. Performed By: #### 1 [id number] ####[facility] [address] [place] [address] Electrolyte Panelon 12-27-19 18 Anion gap 3 molar conc 9 mmol/L Low - [facility] Comment on above: Performed By: #### 1 [id number] ####[facility] [address] [place] [address] Chloride molar conc 106 mmol/L Normal 98-107 [facility] Healthcare Comment on above: Performed By: #### 1 585449 ####[facility] [address] [place] [address] HCO3 molar conc (Bld) 29 mmol/L Normal 21-32 [facility] Healthcare Comment on above: Performed By: #### 1 [id number] ####[facility] [address] [place] [address] Potassium molar conc 4.1 mmol/L Normal 3.5-5.1 [facility] Comment on above: Performed By: #### 1 [id number] ####[facility] [address] [place] [address] Sodium molar conc 140 mmol/L Normal 136-145 [facility] Comment on above: Performed By: #### 1 [id number] ####[facility] [address] [place] [address] Urea Nitrogenon 12-26-2017 Urea nitrogen mass conc 10 mg/dL Normal 6-23 [facility] Comment on above: Performed By: #### 1 [id number] ####[facility] [address] [place] [address] Vital Signs Date Time Vital Sign Value Performing Clinician Facility 02-13-2023 13:30-0400 Body height 181.61 cm Augustoalverto Stephanianguyễn Other [employer] Other 02-13-2023 13:30-0400 Body mass index (BMI) [Ratio] 32.73 kg/m2 Uche Porter Other [employer] Other 02-13-2023 13:30-0400 Body temperature 97.1 [degF] Uche Porter Other [employer] Other 02-13-2023 13:30-0400 Body weight 107.96 kg Uche Porter Other [employer] Other 02-13-2023 13:30-0400 Diastolic blood pressure 76 mm[Hg] Uche Porter Other [employer] Other 02-13-2023 13:30-0400 Respiratory rate 20 /min Uche Porter Other [employer] Other 02-13-2023 13:30-0400 SaO2% (BldA) [Mass fraction] 96 % Uche Porter Other [employer] Other 02-13-2023 13:30-0400 Systolic blood pressure 130 mm[Hg] Uche Porter Other [employer] Other 02-09-2023 10:45-0400 Body height 181.61 cm Regi Leong Other [employer] Other 02-09-2023 10:45-0400 Body mass index (BMI) [Ratio] 32.92 kg/m2 Regi Leong Other [employer] Other 02-09-2023 10:45-0400 Body weight 108.59 kg Regi Leong Other [employer] Other 02-09-2023 10:45-0400 Diastolic blood pressure 72 mm[Hg] Regi Leong Other [employer] Other 02-09-2023 10:45-0400 SaO2% (BldA) [Mass fraction] 97 % Regi Leong Other [employer] Other 02-09-2023 10:45-0400 Systolic blood pressure 118 mm[Hg] Regi Leong Other [employer] Other 12-12-2022 09:59-0400 Body height 180.34 cm Regi Leong Work Phone: [facility] DO Work Phone: 12-12-2022 09:59-0400 Body mass index (BMI) [Ratio] 33.19 kg/m2 Regi Leong Work Phone: [facility] 250 DO Work Phone: 12-12-2022 09:59-0400 Body surface area Derived from formula 2.27 m2 Regi Leong Work Phone: [facility] 250 DO Work Phone: 12-12-2022 09:59-0400 Body weight 107.96 kg Regi Leong Work Phone: [facility] 250 DO Work Phone: 12-12-2022 09:59-0400 Diastolic blood pressure 64 mm[Hg] Regi Leong Work Phone: [facility] 250 DO Work Phone: 12-12-2022 09:59-0400 Heart rate 66 /min Regi Leong Work Phone: [facility] 250 DO Work Phone: 12-12-2022 09:59-0400 Systolic blood pressure 110 mm[Hg] Regi Leong Work Phone: [facility] DO Work Phone: 11-07-2022 15:00-0400 Body height 181.61 cm Uche Porter Other [employer] Other 11-07-2022 15:00-0400 Body mass index (BMI) [Ratio] 33.14 kg/m2 Uche Porter Other [employer] Other 07-18-2023 15:00-0400 Body temperature 97.8 [degF] Uche Porter Other [employer] Other 11-07-2022 15:00-0400 Body weight 109.32 kg Uche Porter Other [employer] Other 11-07-2022 15:00-0400 Diastolic blood pressure 81 mm[Hg] Uche Porter Other [employer] Other 11-07-2022 15:00-0400 Respiratory rate 20 /min Uche Porter Other [employer] Other 11-07-2022 15:00-0400 SaO2% (BldA) [Mass fraction] 96 % Uche Porter Other [employer] Other 11-07-2022 15:00-0400 Systolic blood pressure 128 mm[Hg] Uche Porter Other [employer] Other 09-04-2022 10:00-0400 Body height 181.61 cm Regi Leong Other [employer] Other 09-04-2022 10:00-0400 Body mass index (BMI) [Ratio] 33.97 kg/m2 Regi Leong Other [employer] Other 09-04-2022 10:00-0400 Body weight 112.04 kg Regi Leong Other [employer] Other 09-04-2022 10:00-0400 Diastolic blood pressure 72 mm[Hg] Regi Leong Other [employer] Other 09-04-2022 10:00-0400 SaO2% (BldA) [Mass fraction] 92 % Regi Leong Other [employer] Other 09-04-2022 10:00-0400 Systolic blood pressure 118 mm[Hg] Regi Leong Other [employer] Other 06-07-2022 09:01-0500 Body height 180.34 cm Jeancarlos Gudino Work Phone: [facility] [place] 250 DO Work Phone: 06-07-2022 09:01-0500 Body mass index (BMI) [Ratio] 33.75 kg/m2 Jeancarlos Gudino Work Phone: [facility] [place] 250 DO Work Phone: 06-07-2022 09:01-0500 Body surface area Derived from formula 2.29 m2 Jeancarlos Gudino Work Phone: [facility] [place] 250 DO Work Phone: 06-07-2022 09:01-0500 Body weight 109.77 kg Jeancarlos Gudino Work Phone: [facility] [place] 250 DO Work Phone: 06-07-2022 09:01-0500 Diastolic blood pressure 82 mm[Hg] Jeancarlos Gudino Work Phone: [facility] [place] 250 DO Work Phone: 06-07-2022 09:01-0500 Heart rate 52 /min Jeancarlos Gudino Work Phone: [facility] [place] 250 DO Work Phone: 06-07-2022 09:01-0500 Systolic blood pressure 130 mm[Hg] Jeancarlos Gudino Work Phone: [facility] [place] 250 DO Work Phone: 12-06-2021 09:15-0400 Body height 180.34 cm Jeancarlos Gudino Work Phone: [facility] DO Work Phone: 12-06-2021 09:15-0400 Body mass index (BMI) [Ratio] 32.78 kg/m2 Jeancarlos Gudino Work Phone: [facility] 250 DO Work Phone: 12-06-2021 09:15-0400 Body surface area Derived from formula 2.26 m2 Jeancarlos Gudino Work Phone: [facility] 250 DO Work Phone: 12-06-2021 09:15-0400 Body weight 106.6 kg Jeancarlos Gudino Work Phone: [facility] 250 DO Work Phone: 12-06-2021 09:15-0400 Diastolic blood pressure 70 mm[Hg] Jeancarlos Gudino Work Phone: [facility] [facility] DO Work Phone: 12-06-2021 09:15-0400 Heart rate 50 /min Jeancarlos Gudino Work Phone: [facility] 250 DO Work Phone: 12-06-2021 09:15-0400 Systolic blood pressure 136 mm[Hg] Jeancarlos Gudino Work Phone: [facility] DO Work Phone: 09-09-2021 09:34-0400 Blood Pressure Location Jeancarlos GUDINO [facility] 09-09-2021 09:34-0400 Body temperature 97.52 [degF] Jeancarlos GUDINO [facility] 09-09-2021 09:34-0400 Diastolic blood pressure 74 mm[Hg] Jeancarlos GUDINO [facility] 09-09-2021 09:34-0400 Heart rate 60 /min Jeancarlos GUDINO [facility] 09-09-2021 09:34-0400 SaO2% (BldA) [Mass fraction] 95 % Jeancarlos GUDINO [facility] 09-09-2021 09:34-0400 Systolic blood pressure 122 mm[Hg] Jeancarlos GUDINO [facility] 05-24-2021 15:13-0500 Body height 180.34 cm Jeancarlos Gudino Work Phone: [facility] 250 DO Work Phone: 05-24-2021 15:13-0500 Body mass index (BMI) [Ratio] 32.36 kg/m2 Jeancarlos Gudino Work Phone: [facility] 250 DO Work Phone: 05-24-2021 15:13-0500 Body surface area Derived from formula 2.25 m2 Jeancarlos Gudino Work Phone: [facility] 250 DO Work Phone: 05-24-2021 15:13-0500 Body weight 105.24 kg Jeancarlos Gudino Work Phone: [facility] 250 DO Work Phone: 05-24-2021 15:13-0500 Diastolic blood pressure 78 mm[Hg] Jeancarlos Gudino Work Phone: [facility] DO Work Phone: 05-24-2021 15:13-0500 Heart rate 61 /min Jeancarlos S Terese Work Phone: [facility] DO Work Phone: 05-24-2021 15:13-0500 Systolic blood pressure 119 mm[Hg] Jeancarlos Gudino Work Phone: [facility] 250 DO Work Phone: Encounters Encounter Date Encounter Type Care Provider Facility Start: 08-07-2023 End: 08-07-2023 ambulatory Regi Leong Facility:[facility] Start: 08-07-2023 End: 08-07-2023 ambulatory MD Regi Leong Work Phone: [facility] Work Phone: Start: 08-07-2023 End: 08-07-2023 Patient encounter procedure MD Regi Leong Work Phone: [facility] [address] Work Phone: Start: 07-27-2023 Non-patient / Non-visit MD Maribel Leong Work Phone: Count Includes [facility] Physician [facility] Work Phone: Start: 06-12-2023 Non-patient / Non-visit MD Maribel Leong Work Phone: Count Includes [facility] Physician [facility] Work Phone: Start: 02-13-2023 End: 02-13-2023 ambulatory Uche Porter Other [facility] [employer] Other Start: 02-13-2023 Office outpatient vi sit 25 minutes Kamal German [facility] Start: 02-09-2023 End: 02-09-2023 ambulatory Regi Leong Other [facility] [employer] Other Start: 02-09-2023 Office outpatient vi sit 15 minutes Regi Leong [facility] Start: 02-01-2023 End: 02-01-2023 ambulatory Kamal Changuyễn Facility:[facility] Start: 01-05-2023 Telephone encounter Regi garcia Work Phone: [facility] 250 DO Work Phone: Start: 12-12-2022 Office outpatient vi sit 25 minutes Regi Leong Work Phone: [facility] 250 DO Work Phone: Start: 12-12-[address] Jeancarlos López Facility: Start: 11-07-2022 End: 11-07-2022 ambulatory Kamal Chaban Other [employer] Other Start: 11-07-2022 Office outpatient vi sit 15 minutes Kamal Chaban [facility] Start: 10-30-2022 End: 10-30-2022 ambulatory Regi Leong Other [employer] Other Start: 10-30-2022 Telephone encounter Regi Leong [facility] Start: 10-13-2022 End: 10-13-2022 ambulatory Augustoal German Facility:[facility] Start: 09-29-2022 End: 09-29-2022 ambulatory Regi Leong Other [employer] Other Start: 09-29-2022 Telephone encounter Regi Leong [facility] Start: 09-21-2022 End: 09-21-2022 ambulatory Regi Leong Other [employer] Other Start: 09-21-2022 Telephone encounter Regi Leong [facility] Start: 09-04-2022 Encounter for genera l adult medical examination without abnormal findings Regi Leong [facility] Start: 09-04-2022 Initial preventive medicine new patient 40-64yrs Regi Leong [facility] Start: 09-04-2022 End: 09-05-[address] REGI LEONG [employer] Other Start: 07-27-2022 End: 07-28-[address] JEANCARLOS GUDINO Facility:[facility] Start: 06-07-2022 End: 06-08-[address] CARLY GAMBLE Facility:[facility] Start: 06-07-2022 Office outpatient vi sit 25 minutes Jeancarlos Gudino Work Phone: [facility] 250 DO Work Phone: Start: 06-07-[address] Jeancarlos Larios [facility] Terese Facility:[id number] Start: 05-24-2022 End: 05-25-[address] JEANCARLOS GUDINO Facility: Start: 04-27-2022 End: 04-28-[address] JEANCARLOS GUDINO Facility:[facility] Start: 04-07-2022 End: 04-08-[address] JEANCARLOS GUDINO Facility:[facility] Start: 03-27-2022 End: 03-28-[address] JEANCARLOS GUDINO Facility:[facility] Start: 02-22-2022 End: 02-23-[address] JEANCARLOS GUDINO Facility: Start: 01-25-2022 End: 01-26-[address] JEANCARLOS GUDINO Facility:[facility] Start: 12-06-2021 Office outpatient vi sit 25 minutes Jeancarlos Gudino Work Phone: [facility] 250 DO Work Phone: Start: 11-21-2021 End: 11-22-[address] JEANCARLOS GUDINO Facility: Start: 09-26-2021 End: 09-27-[address] JEANCARLOS GUDINO Facility: Start: 09-16-2021 End: 09-17-2021 ambulatory Jeancarlos GUDINO Facility[facility] Start: 09-09-2021 End: 09-10-2021 ambulatory Jeancarlos GUDINO Facility:[facility] Start: 09-09-2021 End: 09-09-2021 Patient encounter procedure Jeancarlos GUDINO [facility] Start: 09-09-2021 End: 09-09-2021 Well adult monitoring check done Jeancarlos GUDINO [facility] Start: 05-24-2021 Office outpatient vi sit 25 minutes Jeancarlos Gudino Work Phone: [facility] 250 DO Work Phone: Start: 03-11-2021 Patient encounter procedure Jeancarlos Gudino Work Phone: [facility] DO Work Phone: Start: 03-08-2021 Patient encounter procedure Jeancarlos S Terese Work Phone: [facility] [place] Work Phone: Start: 02-03-2021 Rx Renewal Jeancarlos Finney Gran t Work Phone: [facility] [place] Work Phone: Start: 12-26-2017 Patient encounter CARLY GAMBLE Fac ility:[id number] Start: 02-20-2017 End: 02-21-2017 Ambulatory DEFAULT PHYSICIAN Facility:[facility] Procedures Date Procedure Procedure Detail Performing Clinician Start: 08-07-2023 CT of chest without contrast MD Regi Leong Work Phone: Start: 09-04-[address] TEODORO GUDINO Comment on above: Performed By: #### [facility] #### [facility] [address] [place] [address] Dr. Nabil Che Catheter ablation of arrhythmogenic focus Jeancarlos Gudino Work Phone: Cholecystectomy Jeancarlos duncan Work Phone: Colonoscopy Jeancarlos Gudino Work Phone: Plan of Treatment Date Care Activity Detail Author Start: 06-19-2023 FUV, Provider: Carly Gamble, Status: Pen, Time: 10:40 AM FUV, Provider: Carly Gamble, Status: Pen, Time: 10:40 AM [facility] 250 DO Work Phone: Start: 12-12-2022 FUV, Provider: Carly Gamble, Status: Pen, Time: 9:50 AM FUV, Provider: Carly Gamble, Status: Pen, Time: 9:50 AM [facility] 250 DO Work Phone: Start: 09-11-2022 ambulatory Ambulatory Facility:[facility] Start: 06-07-2022 FUV, Provider: Carly Gamble, Status: Pen, Time: 9:10 AM FUV, Provider: Carly Gamble, Status: Pen, Time: 9:10 AM [facility] DO Work Phone: Start: 12-06-2021 FUV, Provider: Carly Gamble, Status: Pen, Time: 9:10 AM FUV, Provider: Carly Gamble, Status: Pen, Time: 9:10 AM -[facility] DO Work Phone: Start: 05-24-2021 FUV, Provider: Carly Gamble, Status: Pen, Time: 3:00 PM FUV, Provider: Carly Gamble, Status: Pen, Time: 3:00 PM -[facility] [place] Work Phone: Start: 03-11-2021 EVENT CARLITOS, Provider : YESSICA PETER [employer] WORKER 1,[id number], Status: Pen, Time: 10:30 AM EVENT CARLITOS, Provider: YESSICA PETER [employer] WORKER 1,[id number], Status: Pen, Time: 10:30 AM [facility] [place] Work Phone: Immunizations Immunization Date Immunization Notes Care Provider Fa star 01-21-2014 influenza virus vaccine, unspecified formulation Jeancarlos Gudino Work Phone: [facility] 250 DO Work Phone: 02-12-2013 influenza virus vaccine, unspecified formulation Jeancarlos GUDINO [facility] [place] 04-23-2008 pneumococcal polysaccharide vaccine, 23 valent Jeancarlos Gudino Work Phone: [facility] 250 DO Work Phone: 04-23-2003 pneumococcal polysaccharide vaccine, 23 valent Jeancarlos Gudino Work Phone: [facility] 250 DO Work Phone: influenza virus vaccine, unspecified formulation Jeancarlos Gudino Work Phone: [facility] 250 DO Work Phone: Comment on above: 2012 2011 2009 2008 NEGATED: Highlighted row has not occurred!05-20-2020 influenza virus vaccine, unspecified formulation Jeancarlos GUDINO [facility] [place] Payers Date Payer Category Payer Self-pay 1960 Unknown [id number] 1960 Unknown [id number] [id number] 1961 Unknown [id number] 2.16.840.1.228073.3.579.2.727 1961 Unknown [id number] 2.16.840.1.099757.3.579.2.593 1961 Unknown [id number] 2.16.840.1.724753.3.579.2.593 1961 Unknown [id number] 2.16.840.1.512203.3.579.2.593 1961 Unknown [id number] 2.16.840.1.709931.3.579.2.593 1961 Unknown [id number] 2.16.840.1.681888.3.579.2.593 1961 Unknown [id number] 2.16.840.1.731881.3.579.2.593 1961 Unknown [id number] 2.16.840.1.647440.3.579.2.593 1961 Unknown [id number] 2.16.840.1.981012.3.579.2.593 1961 Unknown [id number] 2.16.840.1.122350.3.579.2.593 1961 Unknown [id number] 2.16.840.1.095356.3.579.2.593 1961 Unknown [id number] 2.16.840.1.626324.3.579.2.593 1961 Unknown [id number] 2.16.840.1.191316.3.579.2.593 1961 Unknown [id number] 2.16.840.1.746640.3.579.2.356 1961 Unknown [id number] 2.16.840.1.241990.3.579.2.356 1959 Department of [facility] e ( and others) [id number] Unknown Unknown [id number] 2.16.840.1.126258.3.579.2.531 Unknown [id number] 2.16.840.1.906196.3.579.2.531 Unknown [id number] 2.16.840.1.515443.3.579.2.531 Social History Date Type Detail Facility Daily caffeine consumption Daily caffeine consumption [facility] 250 DO Work Phone: Comment on above: 1-2 mixed drinks a m onth; 1 ppd; 1-2 mixed drinks a w yocha dehe; 1 decaff coffee; Start: 09-09-2021 Tobacco smoking status Heavy t obacco smoker (finding) [facility] Tobacco smoking status Never [facility] Sex Assigned At Male [facility] Start: 1960 Sex Assigned At Male F [facility] Clinical Notes 08-25-2021 to 02-13-2023 Note Date & Type Note Facility 02-13-2023 Evaluation note Encounter Date Diagnosis Assessment Notes Jan, Lung nodule (ICD-10 - R91.1) Jan, Tobacco use disorder (ICD-10 - F17.200) [employer] Other 10-20-2023 Evaluation note* Encounter Date Diagnosis Assessment Notes Treatment Notes Treatment Clinical Notes Jan, Benign paroxysmal positional vertigo, unspecified laterality (ICD-10 - H81.10) Order printed for PT. Pt will call and set up appt. Jan, Mixed hyperlipidemia (ICD-10 - E78.2) Recheck labs. Pt had adverse side effects to crestor. [employer] Other 07-18-2023 Evaluation note* Encounter Date Diagnosis Assessment Notes Treatment Notes Treatment Clinical Notes Oct, Lung nodule (ICD-10 - R91.1) Oct, Nicotine dependence, cigarettes, uncomplicated (ICD-10 - F17.210) [employer] Other 05-15-2023 Evaluation note* Encounter Date Diagnosis [...] Dr. Finley - will set up with [facility] August, Nicotine dependence, cigarettes, uncomplicated (ICD-10 - F17.210) agrees to LDCT and chantix. discussed side effects of chantix. August, Screening for colon cancer (ICD-10 - Z12.11) agrees to cologuard August, GERD without esophagitis (ICD-10 - K21.9) requests refill of Aciphex. [employer] Other 05-05-2022 Hospital Discharge instructions Follow Up Care 08/25/2021 11:29:08 With:Jeancarlos GUDINO DO, FAM Address: [address] [place] [id number] When:Within 1 Year(s) [facility] Evaluation + Plan note Future Appointments Appointment Date:09/16/2021 04:00:00 PM Scheduled Provider: Location:[facility] Appointment Type:MRI Brain () Appointment Date:09/11/2022 10:00:00 AM Scheduled Provider:Jeancarlos GUDINO DO Location:[facility] Appointment Type: Open Future Scheduled Tests Laboratory* PSA Screen, Total 08/29/21 * CBC w/ Auto Diff 08/29/21 * Comprehensive Metabolic Panel 08/29/21 * Lipid Panel 08/29/21 Radiology* MRI Brain w/o Contrast 09/16/[address] [facility] Evaluation noteNo [facility] [employer] Other Evaluation noteNo assessment information available [facility] Work Phone: Hisylxs general Narrative - Reported* Type Description Date Medical History Afib Medical History IBS Medical History Protruding disc C4-C5 Surgical History Cholecystectomy 2005 Surgical History Ablation on heart Surgical History Colonoscopy - Dr. Estes 2005 [employer] Other Hospital course Narrative No data available for this section [facility] Reason for visit Narrative* Indication: Atrial [...] Carly Gamble MD * Enrollment sent to: [employer] * Monitor number [id number] applied. * Holter monitor printed and placed on Dr. Higinio Tyson MD desk to dictate. -[facility] 250 DO Work Phone: Summary Purpose Family History [...] for the problems noted below. He reports Count Includes [facility] palpitations since he started taking magnesium. [...] He has active lifestyle and is in correction at the present time. His examination is [...] for the problems noted below. He reports [place] palpitations since he started taking magnesium. His [...] He has active lifestyle and is in correction at the present time. His examination is [...] any palpitations since he started taking magnesium [id number]. He is on Multaq and his rhythm [...] and content) DATE CREATED AUTHOR 10/16/2017 [facility] DATE CREATED AUTHOR AUTHOR'S ORGANIZ ATION 01/30/2018 [facility] DATE CREATED AUTHOR AUTHOR'S ORGANIZ ATION 02/14/2019 [facility] DATE CREATED AUTHOR AUTHOR'S ORGANIZ ATION 07/31/2022 [facility] ical Center DATE CREATED AUTHOR AUTHOR'S ORGANIZ ATION 09/05/2022 [facility] DATE CREATED AUTHOR AUTHOR'S ORGANIZ ATION 12/13/2022 [facility] ical Center DATE CREATED AUTHOR AUTHOR'S ORGANIZ ATION 12/13/2022 [employer] DATE CREATED AUTHOR AUTHOR'S ORGANIZ ATION 08/11/2023 [facility] Reason for Visit (unrecogniz ed section and content) Event Monitor:ABHINAV is here f or the application of a 30 day event monitor in office., Diagnosis: PAFOrdering Physician: Dr. Carly Gamble MDEnrollment sent to: [employer]Monitor number [id number] applied.[email or web address] wk f/u Lung Nodule3 mo f/u [...] BE BASED ON THE PRIMARY CLINICAL RECORDS. [facility] [employer] [facility]. provides no warranty or guarantee of the accuracy or completeness of information in this document.
[2023-10-17 11:16] LABS: INR 1.83; Prothrombin Time 18.3 sec (9.0-11.6)
== END 2023-10-17 10:10 | disposition home or self-care (01) ==
LOC: LAB 10:10
PROVIDERS: PCP Family Medicine; Visit Provider Family Medicine
DX: I48.0 Paroxysmal atrial fibrillation (principal)
CPT/HCPCS: 36415; 85610

== ENCOUNTER 2023-10-22 00:33 | Outpatient (RCR) | payer OTHER, SELFPAY | END 2023-11-21 23:59 | disposition home or self-care (01) | LOC: MM 00:33 | PROVIDERS: PCP Family Medicine; Visit Provider Internal Medicine | DX: Z51.81 Encounter for therapeutic drug level monitoring (principal); Z79.01 Long term (current) use of anticoagulants; I48.0 Paroxysmal atrial fibrillation ==

== ENCOUNTER 2023-11-28 12:20 | Outpatient (OUT) | payer OTHER, SELFPAY ==
--- OUTSIDE RECORDS SUMMARY | 2023-11-28 12:31 | XMS_ITS | CCD ---
Author Organization [facility] Team Providers Care Improvement Analyst Name Role Phone PHYSICIAN, DEFAULT Unavailable Unavailable PHYSICIAN, DEFAULT Unavailable Unavailable CARLY GAMBLE Unavailable Unavailable JEANCARLOS GUDINO Unavailable Unavailable Jeancarlos Gudino Unavailable Unavailable Unavailable Jeancarlos GUDINO Primary Care Physician [phone] Jeancarlos GUDINO Referring Unavailable Jeancarlos GUDINO Attending [...] DR JEANCARLOS Finney Consulting Unavailable TERESE, DR JEACNARLOS Finney Attending Unavailable TERESE, DR JEANCARLOS Finney [...] vailable MD Regi Leong Primary Care Provider MD Uche Porter Attending Provider [phone] Stephaniaban, Kamal Admitting Unavailable German, Uche Attending Unavailable Regi Leong Primary Care Unavailable Regi Leong Primary Care Unavailable German, Uche Admitting Unavailable German, Uche Attending Unavailable German, Uche Attending Unavailable Regi Leong Primary Care Unavailable German, Kamal Admitting Unavailable Allergies Allergy Classification Reported Allergen(s) Allergy Type Date of Onset Reaction(s) Facility (17 sources) dabigatran etexilate; Translations: [Pradaxa CAPS] Drug Allergy bleeding [facility] [employer] Work Phone: (13 sources) Penicillins; Translations: [Penicillins] Allergy to drug (finding) 4 anaphylaxis [facility] [employer] Work Phone: (2 sources) dabigatran etexilate; Translations: [dabigatran] Drug Allergy Rectal hemorrhage (disorder), Bleeding from nose (finding), Incontinence (finding) [facility] (8 sources) Penicillin; Translations: [penicillin] Drug Allergy 7 anaphylaxis [facility] Repository (2 sources) dabigatran etexilate; Translations: [dabigatran etexilate] Drug Allergy 4 bleeding [facility] (1 source) Penicillins Drug allergy (disorder) [address] [place] [address] Repository Medications Current Medications Medication Drug Class(es) Dates Sig (Normalized) Sig (Original) Aciphex 20 mg Tab-EC (1 source) Start: 05-21-2021 take 1 tablet by mouth once daily Aciphex 20 mg Tab-EC 20 mg = 1 tab(s), Oral, Daily, # 90 tab(s), Refills(s) 3, Pharmacy: [facility], 180.3, cm, 05/20/20 15:18:00 EST, [...] BID, # 60 EA, Refills(s) 5, Pharmacy: [facility] Start Date: 12/02/18 Status: Ordered [...] sunday, # 150 tab(s), Refills(s) 3, Pharmacy: [facility], 180.3, cm, 05/20/20 15:18:00 EST, [...] take 2 capsules by mouth twice daily [place] 3 1000 MG Oral Capsule TAKE 2 [...] 07-27-2022 Episodic Other aftercare (1 source) 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; Translations: [OTH TUGBOAT MATE CURRENT DRUG THERAPY] Onset: 06-12-2022 Episodic Other [...] cerebral ischemia] Chronic Unclassified (2 sources) 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 / Z79.899(ICD-9) Onset: [...] Resolved: 12-12-2022 Chronic Unclassified (1 source) 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; Translations: [Other assisted (current) drug therapy] Onset: 12-26-2017 Results Test Name Value Interpretation Reference Range Facil ity CT chest wo conon 08-07-2023 CT chest wo con [facility] [place] [address] [place] [address] CT Scan Report Signed Patient: Abhinav Felix MR#: [id number] : 1960 Acct:[id number] Age/Sex: 63 / M ADM Date: 08/07/23 Loc: [facility] Room: Type: [facility] Attending Dr: Uche Porter MD Copies [...] Aracelis Banks M.D.08/07/2023 4:29 PM Dictation Location: [facility]--12 Transcribed By: KIANA 08/07/23 162 Dictated By: Aracelis Banks MD 08/07/23 162 Signed By: 08/07/23 162 Normal [facility] Cholesterol in LDL Calc [Mas s/Vol]on 06-12-2023 Cholesterol in LDL [Mass/Vol] 54.0 mg/dL [facility] Comment on above: <100 mg/dl [id number] 0-129 mg/dl NEAR OR ABOVE [id number] mg/dl BORDERLINE [id number] mg/dl HIGH>190 mg/dl VERY HIGH Cholesterol in [...] challengeon 06-12-2023 Albumin [Mass/Vol] 3.3 g/dL 3.4-5.0 [facility] ALP [Catalytic activity/Vol] 93 U/L 46-116 [facility] ALT [Catalytic activity/Vol] 28 U/L 16-63 [facility] AST [Catalytic activity/Vol] 18 U/L 15-37 [facility] Bilirubin [Mass/Vol] 0.6 mg/dL 0.2-1.0 [facility] Calcium [Mass/Vol] 8.6 mg/dL 8.5-10.1 [facility] Chloride [Moles/Vol] 103 mmol/L 98-107 [facility] Cholesterol [Mass/Vol] 135 mg/dL <=200 [facility] Cholesterol in HDL [Mass/Vol] 33 mg/dL 40-60 [facility] Comment on above: > or =60 mg/dl - LOW CARDIOVASCULAR RISK<40 mg/dl - HIGH CARDIOVASCULAR RISK CO2 [Moles/Vol] 28.4 mmol/L 21.0-32.0 [facility] Creatinine [Mass/Vol] 0.93 mg/dL 0.70-1.30 [facility] GFR/1.73 sq M.predicted MDRD (S/P/Bld) [Vol rate/Area] mL/min/{1.73_m2} >=60 [facility] Glucose [Mass/Vol] 85 mg/dL 74-106 [facility] Potassium [Moles/Vol] 4.3 mmol/L 3.5-5.1 [facility] Protein [Mass/Vol] 7.7 g/dL 6.4-8.2 [facility] Sodium [Moles/Vol] 140 mmol/L 136-145 [facility] Triglyceride [Mass/Vol] 240 mg/dL <=150 [facility] [...] CT lung screeningon 02-02-20 CT lung screening [facility] Main [place] [id number] CT Scan Report Signed Patient: Abhinav Felix MR#: [id number] : 1960 Acct:[id number] Age/Sex: 62 / M ADM Date: 02/01/23 Loc: [facility] Room: Type: [facility] Attending Dr: Uche Porter MD Copies [...] Lockwood Jr., D.OSwapna02/01/2023 2:00 PM Dictation Location: [place] [address] Transcribed By: [facility] 02/01/23 1400 Dictated By: Yannick Lockwood Jr, DO 02/01/23 1348 Signed By: 02/01/23 1400 [facility] Office Visit (Cardiology)on 12-12-2022 [...] Weight Tips; Status:Complete - Retrospective Authorization; Done: [id number] Some eating tips that can help you lose weight.; Status:Complete - Retrospective Authorization; Done: [id number] Paroxysmal atrial fibrillation Renew: Multaq 400 MG Oral Tablet; TAKE 1 TABLET TWICE DAILY, WITH MORNING AND EVENING MEAL IO EKG Electrocardiogram- 12 Lead; Status:Complete; Done: [id number] Renew: Nebivolol HCl - 10 MG Oral [...] we can help. You may also call 9-072-[phone] for free resources and assistance.; Status:Complete - Retrospective Authorization; Done: [id number] Tobacco Use Screening; Status:Complete; Done: [id number] Patient Instructions Please bring all medicines, vitamins, [...] Vital Signs (more content not included)... Normal [facility] Tobacco Screening.on 023 Fall risk assessment b) One or more falls in the last year [facility] y 250 DO Work Phone: Tobacco use status [facility] a) Yes [facility] y 250 DO Work Phone: Tobacco Screening. Yes [facility] 250 DO Work Phone: Glucose Poct Glucometerson 0 10-13-2022 Glucose [Mass/Vol] 114 mg/dL Normal [facility] Comment on above: Result Comment: [facility] Glucose Reference Range is dependent on time and content of last meal. Glucose of more than 200 mg/dL in a nonstressed, ambulatory subject supports the diagnosis of Diabetes Mellitus. PERFORMED BY: [place] [address] PATHOLOGIST [employer]BR[employer]IVE W[employer] JET CUTTER OPERATOR LEXA VALDEZ M.D. Performed By: #### G MIQUEL #### Point of Care testing , PET tumor init tx strat sb-m [facility] 10-13-2022 PET tumor init tx strat sb-mt [facility] Main [place] [address] [place], [place] [id number] Nuclear Medicine Report Signed Patient: Abhinav Felix MR#: [id number] : 1960 Acct:[id number] Age/Sex: 62 / M ADM Date: 10/13/22 Loc: Room: Type: [facility] Attending Dr: Uche Porter MD Copies [...] Lockwood Jr., D.O.10/13/2022 1:03 PM Dictation Location: [place] [address] Transcribed By: [facility] 10/13/22 1303 Dictated By: Yannick Lockwood Jr DO 10/13/22 1101 Signed By: 10/13/22 1303 Normal [facility] CBC AUTO DIFFon 09-04-2022 BASO # 0.1 103/ul Normal 0.0-0.1 [facility] Comment on above: Performed By: #### P [facility] #### [facility] [address] [place] [address] [address] Nabil Che Basophils/100 WBC (Bld) 0.9 % Normal 0.2-2.0 [facility] Comment on above: Performed By: #### P SASC #### [facility] [address] [place] [address] [address] Nabil Che EO # 0.3 103/ul Normal 0.0-0.7 [facility] Comment on above: Performed By: #### P SASC #### [facility] [address] [place] [address] [address] Nabil Che Eosinophils/100 WBC (Bld) 3.3 % Normal 0.9-7.0 [facility] Comment on above: Performed By: #### P SASC #### [facility] [address] [place] [address] [address] Nabil Che Erythrocyte distribution width (RBC) [Ratio] 13.2 % Normal 11.0-15.0 [facility] Comment on above: Performed By: #### P SASC #### [facility] [address] [place] [address] [address] Nabil Che Hematocrit (Bld) [Volume fraction] 51.1 % Normal 42.0-54.0 [facility] Comment on above: Performed By: #### P SASC #### [facility] [address] [place] [address] [address] Nabil Che Hemoglobin (Bld) [Mass/Vol] 17.8 g/dL Normal 14.0-18.0 [facility] Comment on above: Performed By: #### P SASC #### [facility] [address] [place] [address] [address] Nabil Che IG # 0.07 10e3/ul Critically high 0.00-0.03 [facility] Comment on above: Performed By: #### P SASC #### [facility] [address] [place] [address] [address] Nabil Che IG % 0.7 % Critically high 0.0-0.5 [facility] Comment on above: Performed By: #### P SASC #### [facility] [address] [place] [address] [address] Nabil Che LYMPH # 2.1 103/ul Normal 1.2-3.8 [facility] Comment on above: Performed By: #### P SASC #### [facility] [address] [place] [address] [address] Nabil Che Lymphocytes/100 WBC (Bld) 21.2 % Normal 20.5-60.0 [facility] Comment on above: Performed By: #### P SASC #### [facility] [address] [place] [address] [address] Nabil Che MANUAL DIFF REQ NO Normal [facility] Comment on above: Performed By: #### P SASC #### [facility] [address] [place] [address] [address] Nabil Che MCH (RBC) [Entitic mass] 31.5 pg Normal 25.9-34.0 [facility] Comment on above: Performed By: #### P SASC #### [facility] [address] [place] [address] [address] Nabil Che MCHC (RBC) [Mass/Vol] 34.8 g/dL Normal 29.9-35.2 [facility] Comment on above: Performed By: #### P SASC #### [facility] [address] [place] [address] [address] Nabil Che MCV (RBC) [Entitic vol] 90.4 fL Normal 80.0-94.0 [facility] Comment on above: Performed By: #### P SASC #### [facility] [address] [place] [address] [address] Nabil Che MONO # 1.2 103/ul Critically high 0.3-0.8 [facility] Comment on above: Performed By: #### P SASC #### [facility] [address] [place] [address] [address] Nabil Che Monocytes/100 WBC (Bld) 12.1 % Critically high 1.7-12.0 [facility] Comment on above: Performed By: #### P SASC #### [facility] [address] [place] [address] [address] Nabil Che NEUT # 6.0 103/ul Normal 1.4-6.5 [facility] Comment on above: Performed By: #### P SASC #### [facility] [address] [place] [address] [address] Nabil Che Neutrophils/100 WBC (Bld) 61.8 % Normal 43.0-75.0 [facility] Comment on above: Performed By: #### P SASC #### [facility] [address] [place] [address] [address] Nabil Che Platelet mean volume (Bld) [Entitic vol] 10.3 fL Normal 9.5-13.5 [facility] Comment on above: Performed By: #### P SASC #### [facility] [address] [place] [address] [address] Nabil Che PLT 203 103/ul Normal 150-450 [facility] Comment on above: Performed By: #### P SASC #### [facility] [address] [place] [address] [address] Nabil Che RBC 5.65 106/ul Normal 4.70-6.10 [facility] Comment on above: Performed By: #### P SASC #### [facility] [address] [place] [address] [address] Nabil Che WBC 9.8 103/ul Normal 4.0-11.0 [facility] Comment on above: Performed By: #### P SASC #### [facility] [address] [place] [address] [address] Nabil Che LIPID PROFILEon 09-04-2022 CHOL-HDL RATIO NORM SEE BELOW Normal [facility] Comment on above: Result Comment: 3.3 - 4.4 LOW RISK 4.4 - 7.1 AVERAGE RISK 7.1 - 11.0 MODERATE RISK >11.0 HIGH RISK Performed By: #### L IPID, CMP #### [facility] [address] [place] [address] [address] Nabil Che Cholesterol [Mass/Vol] 231 mg/dL Critically high <=200 [facility] Comment on above: Performed By: #### L IPID, CMP #### [facility] [address] [place] [address] [address] Nabil Che Cholesterol in HDL [Mass/Vol] 37 mg/dL Critically low 40-60 [facility] Comment on above: Performed By: #### L IPID, CMP #### [facility] [address] [place] [address] [address] Nabil Che Cholesterol in LDL [Mass/Vol] 137.0 mg/dL Normal [facility] Comment on above: Performed By: #### L IPID, CMP #### [facility] [address] [place] [address] [address] Nabil Che Cholesterol.total/Ch olesterol in HDL [Mass ratio] 6.2 {ratio} Normal [facility] Comment on above: Performed By: #### L IPID, CMP #### [facility] [address] [place] [address] Dr. Nabil Che HDL NORMAL > or = 60 mg/dl - LOW CARDIOVASCULAR RISK <40 mg/dl - HIGH CARDIOVASCULAR RISK Normal [facility] Comment on above: Performed By: #### L IPID, CMP #### [facility] [address] [place] [address] Dr. Nabil Che LDL CALC NORMAL SEE BELOW Normal [facility] Comment on above: Result Comment: <100 mg/dl OPTIMAL 100 - 129 mg/dl NEAR OR ABOVE OPTIMAL 130 - 159 mg/dl BORDERLINE HIGH 160 - 189 mg/dl HIGH >190 mg/dl VERY HIGH Performed By: #### L IPID, CMP #### [facility] [address] [place] [address] Dr. Nabil Che Triglyceride [Mass/Vol] 285 mg/dL Critically high <=150 [facility] Comment on above: Performed By: #### L IPID, CMP #### [facility] [address] [place] [address] Dr. Nabil Che VLDL CALC 57.0 mg/dL Normal [facility] Comment on above: Performed By: #### L IPID, CMP #### [facility] [address] [place] [address] Dr. Nabil Che PROF 14(COMP METB)on 023 Albumin [Mass/Vol] 3.7 g/dL Normal 3.4-5.0 [facility] Comment on above: Performed By: #### L IPID, CMP #### [facility] [address] [place] [address] Dr. Nabil Che Albumin/Globulin [Mass ratio] 0.8 {ratio} Normal [facility] Comment on above: Performed By: #### L IPID, CMP #### [facility] [address] [place] [address] [address] Nabil Che ALP [Catalytic activity/Vol] 96 U/L Normal 46-116 [facility] Comment on above: Performed By: #### L IPID, CMP #### [facility] [address] [place] [address] Dr. Nabil Che ALT [Catalytic activity/Vol] 42 U/L Normal 16-63 [facility] Comment on above: Performed By: #### L IPID, CMP #### [facility] [address] [place] [address] Dr. Nabil Che Anion gap [Moles/Vol] 11.9 mmol/L Normal [facility] Comment on above: Performed By: #### L IPID, CMP #### [facility] [address] [place] [address] Dr. Nabil Che AST [Catalytic activity/Vol] 23 U/L Normal 15-37 [facility] Comment on above: Performed By: #### L IPID, CMP #### [facility] [address] [place] [address] [address] Nabil Che Bilirubin [Mass/Vol] 0.5 mg/dL Normal 0.2-1.0 [facility] Comment on above: Performed By: #### L IPID, CMP #### [facility] [address] [place] [address] [address] Nabil Che Calcium [Mass/Vol] 9.1 mg/dL Normal 8.5-10.1 [facility] Comment on above: Performed By: #### L IPID, CMP #### [facility] [address] [place] [address] Dr. Nabil Che Chloride [Moles/Vol] 104 mmol/L Normal 98-107 [facility] Comment on above: Performed By: #### L IPID, CMP #### [facility] [address] [place] [address] Dr. Nabil Che CO2 [Moles/Vol] 29.7 mmol/L Normal 21.0-32.0 [facility] Comment on above: Performed By: #### L IPID, CMP #### [facility] [address] [place] [address] Dr. Nabil Che Creatinine [Mass/Vol] 1.07 mg/dL Normal 0.70-1.30 [facility] Comment on above: Performed By: #### L IPID, CMP #### [facility] [address] [place] [address] Dr. Nabil Che EGFR-AF GREEK >60 Normal >=60 [facility] Comment on above: Performed By: #### L IPID, CMP #### [facility] [address] [place] [address] Dr. Nabil Che EGFR-NON AF GREEK >60 Normal >=60 [facility] Comment on above: Performed By: #### L IPID, CMP #### [facility] [address] [place] [address] Dr. Nabil Che Globulin (S) [Mass/Vol] 4.8 g/dL Normal [facility] Comment on above: Performed By: #### L IPID, CMP #### [facility] [address] [place] [address] Dr. Nabil Che Glucose [Mass/Vol] 106 mg/dL Normal 74-106 [facility] Comment on above: Performed By: #### L IPID, CMP #### [facility] [address] [place] [address] [address] Nabil Che Potassium [Moles/Vol] 4.6 mmol/L Normal 3.5-5.1 [facility] Comment on above: Performed By: #### L IPID, CMP #### [facility] [address] [place] [address] Dr. Nabil Che Protein [Mass/Vol] 8.5 g/dL Critically high 6.4-8.2 [facility] Comment on above: Performed By: #### L IPID, CMP #### [facility] [address] [place] [address] Dr. Nabil Che Sodium [Moles/Vol] 141 mmol/L Normal 136-145 [facility] Comment on above: Performed By: #### L IPID, CMP #### [facility] [address] [place] [address] Dr. Nabil Che Urea nitrogen [Mass/Vol] 13.0 mg/dL Normal 7.0-18.0 [facility] Comment on above: Performed By: #### L IPID, CMP #### [facility] [address] [place] [address] Dr. Nabil Che Urea nitrogen/Creatinine [Mass ratio] 12.1 mg/mg Normal [facility] Comment on above: Performed By: #### L IPID, CMP #### [facility] [address] [place] [address] Dr. Nabil Che PROTIMEon 09-04-2022 INR Coag (PPP) [Relative time] 3.32 {INR} Normal [facility] Comment on above: Performed By: #### P T #### [facility] [address] [place] [address] Dr. Nabil Che INR GUIDELINES SEE BELOW Normal [facility] Comment on above: Result Comment: LETY RED INR: 2.0 - 3.0 CONDITIONS NOT LISTED BELOW 2.5 - 3.5 FOR PROSTHETIC HEART VALVE REPLACEMENT 2.5 - 3.5 RECURRENT THROMBOSIS Performed By: #### P T #### [facility] [address] [place] [address] Dr. Nabil Che PT Coag (PPP) [Time] 32.9 s Critically high 9.0-11.6 [facility] Comment on above: Performed By: #### P T #### [facility] [address] [place] [address] Dr. Nabil Che Lab Reportson 07-30-2022 Lab Reports [id number] A8#[id number]:127 Normal [facility] PROTIMEon 07-27-2022 INR Coag (PPP) [Relative time] 2.82 {INR} Normal [facility] Comment on above: Performed By: #### P T #### [facility] [address] [place] [address] Dr. Nabil Che INR GUIDELINES SEE BELOW Normal [facility] Comment on above: Result Comment: LETY RED INR: 2.0 - 3.0 CONDITIONS NOT LISTED BELOW 2.5 - 3.5 FOR PROSTHETIC HEART VALVE REPLACEMENT 2.5 - 3.5 RECURRENT THROMBOSIS Performed By: #### P T #### [facility] [address] [place] [address] Dr. Nabil Che PT Coag (PPP) [Time] 28.2 s Critically high 9.0-11.6 [facility] Comment on above: Performed By: #### P T #### [facility] [address] [place] [address] Dr. Nabil Che CBC AUTO DIFFon 06-07-2022 BASO # 0.1 103/ul Normal 0.0-0.1 [facility] Comment on above: Performed By: #### P SASC #### [facility] [address] [place] [address] Dr. Nabil Che Basophils/100 WBC (Bld) 1.1 % Normal 0.2-2.0 [facility] Comment on above: Performed By: #### P SASC #### [facility] [address] [place] [address] Dr. Nabil Che EO # 0.4 103/ul Normal 0.0-0.7 [facility] Comment on above: Performed By: #### P SASC #### [facility] [address] [place] [address] Dr. Nabil Che Eosinophils/100 WBC (Bld) 3.7 % Normal 0.9-7.0 [facility] Comment on above: Performed By: #### P SASC #### [facility] [address] [place] [address] Dr. Nabil Che Erythrocyte distribution width (RBC) [Ratio] 13.2 % Normal 11.0-15.0 [facility] Comment on above: Performed By: #### P SASC #### [facility] [address] [place] [address] Dr. Nabil Che Hematocrit (Bld) [Volume fraction] 49.2 % Normal 42.0-54.0 [facility] Comment on above: Performed By: #### P SASC #### [facility] [address] [place] [address] Dr. Nabil Che Hemoglobin (Bld) [Mass/Vol] 17.3 g/dL Normal 14.0-18.0 [facility] Comment on above: Performed By: #### P SASC #### [facility] [address] [place] [address] Dr. Nabil Che IG # 0.04 10e3/ul Critically high 0.00-0.03 [facility] Comment on above: Performed By: #### P SASC #### [facility] [address] [place] [address] Dr. Nabil Che IG % 0.4 % Normal 0.0-0.5 [facility] Comment on above: Performed By: #### P SASC #### [facility] [address] [place] [address] Dr. Nabil Che LYMPH # 2.5 103/ul Normal 1.2-3.8 [facility] Comment on above: Performed By: #### P SASC #### [facility] [address] [place] [address] Dr. Nabil Che Lymphocytes/100 WBC (Bld) 26.3 % Normal 20.5-60.0 [facility] Comment on above: Performed By: #### P SASC #### [facility] [address] [place] [address] Dr. Nabil Che MANUAL DIFF REQ NO Normal [facility] Comment on above: Performed By: #### P SASC #### [facility] [address] [place] [address] Dr. Nabil Che MCH (RBC) [Entitic mass] 31.2 pg Normal 25.9-34.0 [facility] Comment on above: Performed By: #### P SASC #### [facility] [address] [address] [address] Nabil Che MCHC (RBC) [Mass/Vol] 35.2 g/dL Normal 29.9-35.2 [facility] Comment on above: Performed By: #### P SASC #### [facility] [address] [place] [address] Dr. Nabil Ceh MCV (RBC) [Entitic vol] 88.6 fL Normal 80.0-94.0 [facility] Comment on above: Performed By: #### P SASC #### [facility] [address] [place] [address] Dr. Nabil Che MONO # 1.3 103/ul Critically high 0.3-0.8 [facility] Comment on above: Performed By: #### P SASC #### [facility] [address] [place] [address] Dr. Nabil Che Monocytes/100 WBC (Bld) 13.3 % Critically high 1.7-12.0 [facility] Comment on above: Performed By: #### P SASC #### [facility] [address] [place] [address] Dr. Nabil Che NEUT # 5.2 103/ul Normal 1.4-6.5 [facility] Comment on above: Performed By: #### P SASC #### [facility] [address] [place] [address] Dr. Nabil Che Neutrophils/100 WBC (Bld) 55.2 % Normal 43.0-75.0 [facility] Comment on above: Performed By: #### P SASC #### [facility] [address] [place] [address] Dr. Nabil Che Platelet mean volume (Bld) [Entitic vol] 10.4 fL Normal 9.5-13.5 [facility] Comment on above: Performed By: #### P SASC #### [facility] [address] [place] [address] Dr. Nabil Che PLT 199 103/ul Normal 150-450 [facility] Comment on above: Performed By: #### P SASC #### [facility] [address] [address] [address] Nabil Che RBC 5.55 106/ul Normal 4.70-6.10 [facility] Comment on above: Performed By: #### P SASC #### [facility] [id number] Nabil Che WBC 9.4 103/ul Normal 4.0-11.0 [facility] Comment on above: Performed By: #### P SASC #### [facility] [address] [address] [address] Nabil Che Office Visit (Cardiology)on 06-07-2022 [...] Weight Tips; Status:Complete - Retrospective Authorization; Done: [id number] Some eating tips that can help you lose weight.; Status:Complete - Retrospective Authorization; Done: [id number] Paroxysmal atrial fibrillation IO EKG Electrocardiogram- 12 Lead; Status:Complete; Done: [id number] SocHx: Current every day smoker You need to stop smoking. Though it is not easy, more than half of all adult smokers have quit. We encourage you to write down all the reasons you should quit smoking and set a quit date for yourself. Ask us how we can help. You may also call 4-430-FBPA-NOW for free resources and assistance.; Status:Complete - Retrospective Authorization; Done: [id number] Tobacco Use Screening; Status:Complete; Done: [id number] Patient Instructions Please bring all medicines, vitamins, [...] any palpitations since he started taking magnesium zqod-jso-nmaxbfw. He is on Multaq and his rhythm [...] 10 MG Oral TabletTake 1 tablet daily [place] 3 1000 MG Oral CapsuleTAKE 2 CAPSULE [...] negative for complaint. Vitals Vital Signs Recorded: [id number] 09:01AM Heart Rate52, L Radial Qvunrcwj278, LUE, Sitting Lyyvtioya56, LUE, Sitting Height5 ft 11 in Yuomqt185 lb BMI Cdiianmxsq13.75 kg/m2 BSA Calculated2.29 Tobacco Usea) Yes Patient encouraged to stop using tobacco productsYes PHQ-2 #1. Over the last 2 weeks have you felt down, depressed or hopeless? (If yes, answer PHQ-9 below)No PHQ-2 #2. Ove (more content not included)... Normal [facility] PROF CHEM 8 (BAS METB)on Anion gap [Moles/Vol] 12.2 mmol/L Normal [facility] Comment on above: Performed By: #### P SASC #### [facility] [address] [address] [address] Nabil Che Calcium [Mass/Vol] 9.1 mg/dL Normal 8.5-10.1 [facility] Comment on above: Performed By: #### P SASC #### [facility] [address] [address] [address] Nabil Che Chloride [Moles/Vol] 103 mmol/L Normal 98-107 [facility] Comment on above: Performed By: #### P SASC #### [facility] [address] [address] [address] Nabil Che CO2 [Moles/Vol] 29.0 mmol/L Normal 21.0-32.0 [facility] Comment on above: Performed By: #### P SASC #### [facility] [address] [address] [address] Nabil Che Creatinine [Mass/Vol] 1.01 mg/dL Normal 0.70-1.30 [facility] Comment on above: Performed By: #### P SASC #### [facility] [address] [address] [address] Nabil Che EGFR-AF GREEK >60 Normal >=60 [facility] Comment on above: Performed By: #### P SASC #### [facility] [address] [address] [address] Nabil Che EGFR-NON AF GREEK >60 Normal >=60 [facility] Comment on above: Performed By: #### P SASC #### [facility] [address] [address] [address] Nabil Che Glucose [Mass/Vol] 113 mg/dL Critically high 74-106 [facility] Comment on above: Performed By: #### P SASC #### [facility] [address] [address] [address] Nabil Che Potassium [Moles/Vol] 4.2 mmol/L Normal 3.5-5.1 [facility] Comment on above: Performed By: #### P SASC #### [facility] [address] [address] [address] Nabil Che Sodium [Moles/Vol] 140 mmol/L Normal 136-145 [facility] Comment on above: Performed By: #### P SASC #### [facility] [address] [address] [address] Nabil Che Urea nitrogen [Mass/Vol] 9.0 mg/dL Normal 7.0-18.0 [facility] Comment on above: Performed By: #### P SASC #### [facility] [address] [address] [address] Nabil Che Urea nitrogen/Creatinine [Mass ratio] 8.9 mg/mg Normal [facility] Comment on above: Performed By: #### P SASC #### [facility] [address] [address] [address] Nabil Che Tobacco Screening.on 023 Adult depression screening assessment No [facility] 250 DO Work Phone: Tobacco use status CPHS a) Yes [facility] 250 DO Work Phone: Tobacco Screening. Yes [facility] 250 DO Work Phone: Lab Reportson 05-27-2022 Lab Reports [id number] 92#1.00CD:127 Normal [facility] PROTIMEon 05-24-2022 INR Coag (PPP) [Relative time] 2.87 {INR} Normal [facility] Comment on above: Performed By: #### P T #### [facility] [address] [place] [address] Dr. Nabil Che INR GUIDELINES SEE BELOW Normal [facility] Comment on above: Result Comment: LETY RED INR: 2.0 - 3.0 CONDITIONS NOT LISTED BELOW 2.5 - 3.5 FOR PROSTHETIC HEART VALVE REPLACEMENT 2.5 - 3.5 RECURRENT THROMBOSIS Performed By: #### P T #### [facility] [address] [place] [address] Dr. Nabil Che PT Coag (PPP) [Time] 28.7 s Critically high 9.0-11.6 [facility] Comment on above: Performed By: #### P T #### [facility] [address] [place] [address] Dr. Nabil Che Lab Reportson 04-29-2022 Lab Reports [id number] F3#1.00CD:127 Normal [facility] PROTIMEon 04-27-2022 INR Coag (PPP) [Relative time] 2.17 {INR} Normal [facility] Comment on above: Performed By: #### P SASC #### [facility] [address] [place] [address] Dr. Nabil Che INR GUIDELINES SEE BELOW Normal [facility] Comment on above: Result Comment: LETY RED INR: 2.0 - 3.0 CONDITIONS NOT LISTED BELOW 2.5 - 3.5 FOR PROSTHETIC HEART VALVE REPLACEMENT 2.5 - 3.5 RECURRENT THROMBOSIS Performed By: #### P SASC #### [facility] [address] [address] [address] Nabil Che PT Coag (PPP) [Time] 22.3 s Critically high 9.0-11.6 [facility] Comment on above: Performed By: #### P SASC #### [facility] [address] [place] [address] Dr. Nabil Che Lab Reportson 04-10-2022 Lab Reports [id number] DD#1.00CD:127 Normal [facility] PROTIMEon 04-07-2022 INR Coag (PPP) [Relative time] 1.09 {INR} Normal [facility] Comment on above: Performed By: #### P T #### [facility] [address] [place] [address] Dr. Nabil Che INR GUIDELINES SEE BELOW Normal [facility] Comment on above: Result Comment: LETY RED INR: 2.0 - 3.0 CONDITIONS NOT LISTED BELOW 2.5 - 3.5 FOR PROSTHETIC HEART VALVE REPLACEMENT 2.5 - 3.5 RECURRENT THROMBOSIS Performed By: #### P T #### [facility] [address] [place] [address] Dr. Nabil Che PT Coag (PPP) [Time] 11.7 s Critically high 9.0-11.6 [facility] Comment on above: Performed By: #### P T #### [facility] [address] [place] [address] Dr. Nabil Che Lab Report[facility] 03-28-2022 Lab Reports [id number] 1F#1.00CD:127 Normal [facility] PROTIMEon 03-27-2022 INR Coag (PPP) [Relative time] 1.11 {INR} Normal [facility] Comment on above: Performed By: #### P SASC #### [facility] [address] [place] [address] Dr. Nabil Che INR GUIDELINES SEE BELOW Normal [facility] Comment on above: Result Comment: LETY RED INR: 2.0 - 3.0 CONDITIONS NOT LISTED BELOW 2.5 - 3.5 FOR PROSTHETIC HEART VALVE REPLACEMENT 2.5 - 3.5 RECURRENT THROMBOSIS Performed By: #### P SASC #### [facility] [address] [place] [address] Dr. Nabil Che PT Coag (PPP) [Time] 11.9 s Critically high 9.0-11.6 [facility] Comment on above: Performed By: #### P SASC #### [facility] [address] [place] [address] Dr. Nabil Che Lab Report[facility] 02-23-2022 Lab Reports [id number] 7C#1.00CD:127 Normal [facility] PROTIMEon 02-22-2022 INR Coag (PPP) [Relative time] 1.84 {INR} Normal [facility] Comment on above: Performed By: #### P T #### [facility] [address] [place] [address] Dr. Nabil Che INR GUIDELINES SEE BELOW Normal [facility] Comment on above: Result Comment: LETY RED INR: 2.0 - 3.0 CONDITIONS NOT LISTED BELOW 2.5 - 3.5 FOR PROSTHETIC HEART VALVE REPLACEMENT 2.5 - 3.5 RECURRENT THROMBOSIS Performed By: #### P T #### [facility] [address] [place] [address] Dr. Nabil Che PT Coag (PPP) [Time] 19.1 s Critically high 9.0-11.6 [facility] Comment on above: Performed By: #### P T #### [facility] [address] [place] [address] Dr. Nabil Che Lab Report[facility] 01-26-2022 Lab Reports [id number] E8#1.00CD:127 [facility] PROTIMEon 01-25-2022 INR Coag (PPP) [Relative time] 1.91 {INR} Normal [facility] Comment on above: Performed By: #### P SASC #### [facility] [address] [address] [address] Nabil Che INR GUIDELINES SEE BELOW Normal [facility] Comment on above: Result Comment: LETY RED INR: 2.0 - 3.0 CONDITIONS NOT LISTED BELOW 2.5 - 3.5 FOR PROSTHETIC HEART VALVE REPLACEMENT 2.5 - 3.5 RECURRENT THROMBOSIS Performed By: #### P SASC #### [facility] [address] [address] [address] Nabil Che PT Coag (PPP) [Time] 19.8 s Critically high 9.0-11.6 [facility] Comment on above: Performed By: #### P SASC #### [facility] [address] [place] [address] Dr. Nabil Che Consultation Noteon 12-07-19 Consultation Note [id number] 8#1.00CD:127 [facility] Tobacco Screening.on 022 Adult depression screening assessment No [facility] 250 DO Work Phone: Tobacco use status CPHS a) Yes [facility] 250 DO Work Phone: Tobacco Screening. Yes [facility] 250 DO Work Phone: Lab Reportson 11-22-2021 Lab Reports [id number] 73#1.00CD:127 [facility] CBC AUTO DIFFon 11-21-2021 BASO # 0.1 103/ul Normal 0.0-0.1 [facility] Comment on above: Performed By: #### C BC #### [facility] [address] [address] [address] Nabil Che Basophils/100 WBC (Bld) 0.8 % Normal 0.2-2.0 [facility] Comment on above: Performed By: #### C BC #### [facility] [address] [address] [address] Nabil Che EO # 0.3 103/ul Normal 0.0-0.7 [facility] Comment on above: Performed By: #### C BC #### [facility] [address] [place] [address] Dr. Nabil Che Eosinophils/100 WBC (Bld) 3.2 % Normal 0.9-7.0 [facility] Comment on above: Performed By: #### C BC #### [facility] [address] [place] [address] Dr. Nabil Che Erythrocyte distribution width (RBC) [Ratio] 13.1 % Normal 11.0-15.0 [facility] Comment on above: Performed By: #### C BC #### [facility] [address] [place] [address] Dr. Nabil Che Hematocrit (Bld) [Volume fraction] 46.8 % Normal 42.0-54.0 [facility] Comment on above: Performed By: #### C BC #### [facility] [address] [place] [address] Dr. Nabil Che Hemoglobin (Bld) [Mass/Vol] 16.4 g/dL Normal 14.0-18.0 [facility] Comment on above: Performed By: #### C BC #### [facility] [address] [place] [address] Dr. Nabil Che IG # 0.04 10e3/ul Critically high 0.00-0.03 [facility] Comment on above: Performed By: #### C BC #### [facility] [address] [place] [address] Dr. Nabil Che IG % 0.4 % Normal 0.0-0.5 [facility] Comment on above: Performed By: #### C BC #### [facility] [address] [place] [address] Dr. Nabil Che LYMPH # 2.8 103/ul Normal 1.2-3.8 [facility] Comment on above: Performed By: #### C BC #### [facility] [address] [place] [address] Dr. Nabil Che Lymphocytes/100 WBC (Bld) 29.6 % Normal 20.5-60.0 [facility] Comment on above: Performed By: #### C BC #### [facility] [address] [place] [address] Dr. Nabil Che MANUAL DIFF REQ NO Normal [facility] Comment on above: Performed By: #### C BC #### [facility] [address] [place] [address] Dr. Nabil Che MCH (RBC) [Entitic mass] 31.3 pg Normal 25.9-34.0 [facility] Comment on above: Performed By: #### C BC #### [facility] [address] [place] [address] Dr. Nabil Che MCHC (RBC) [Mass/Vol] 35.0 g/dL Normal 29.9-35.2 [facility] Comment on above: Performed By: #### C BC #### [facility] [address] [place] [address] Dr. Nabil Che MCV (RBC) [Entitic vol] 89.3 fL Normal 80.0-94.0 [facility] Comment on above: Performed By: #### C BC #### [facility] [address] [place] [address] Dr. Nabil Che MONO # 1.4 103/ul Critically high 0.3-0.8 [facility] Comment on above: Performed By: #### C BC #### [facility] [address] [place] [address] Dr. Nabil Che Monocytes/100 WBC (Bld) 14.5 % Critically high 1.7-12.0 [facility] Comment on above: Performed By: #### C BC #### [facility] [address] [place] [address] Dr. Nabil Che NEUT # 4.9 103/ul Normal 1.4-6.5 [facility] Comment on above: Performed By: #### C BC #### [facility] [address] [place] [address] Dr. Nabil Che Neutrophils/100 WBC (Bld) 51.5 % Normal 43.0-75.0 [facility] Comment on above: Performed By: #### C BC #### [facility] [address] [place] [address] Dr. Nabil Che Platelet mean volume (Bld) [Entitic vol] 10.6 fL Normal 9.5-13.5 [facility] Comment on above: Performed By: #### C BC #### [facility] [address] [place] [address] Dr. Nabil Che PLT 173 103/ul Normal 150-450 [facility] Comment on above: Performed By: #### C BC #### [facility] [address] [place] [address] Dr. Nabil Che RBC 5.24 106/ul Normal 4.70-6.10 [facility] Comment on above: Performed By: #### C BC #### [facility] [address] [place] [address] Dr. Nabil Che WBC 9.4 103/ul Normal 4.0-11.0 [facility] Comment on above: Performed By: #### C BC #### [facility] [address] [place] [address] Dr. Nabil Che PROF CHEM 8 (BAS METB)on Anion gap [Moles/Vol] 11.7 mmol/L Normal [facility] Comment on above: Performed By: #### B MP #### [facility] [address] [place] [address] Dr. Nabil Che Calcium [Mass/Vol] 8.1 mg/dL Critically low 8.5-10.1 [facility] Comment on above: Performed By: #### B MP #### [facility] [address] [address] [address] Nabil Che Chloride [Moles/Vol] 103 mmol/L Normal 98-107 [facility] Comment on above: Performed By: #### B MP #### [facility] [address] [address] [address] Nabil Che CO2 [Moles/Vol] 28.1 mmol/L Normal 21.0-32.0 [facility] Comment on above: Performed By: #### B MP #### [facility] [address] [address] [address] Nabil Che Creatinine [Mass/Vol] 1.34 mg/dL Critically high 0.70-1.30 [facility] Comment on above: Performed By: #### B MP #### [facility] [address] [address] [address] Nabil Che EGFR-AF GREEK >60 Normal >=60 [facility] Comment on above: Performed By: #### B MP #### [facility] [address] [address] [address] Nabil Che EGFR-NON AF GREEK 54 mL/min/1.73m2 Critically low >=60 [facility] Comment on above: Performed By: #### B MP #### [facility] [address] [address] [address] Nabil Che Glucose [Mass/Vol] 87 mg/dL Normal 74-106 [facility] Comment on above: Performed By: #### B MP #### [facility] [address] [address] [address] Nabil Che Potassium [Moles/Vol] 4.8 mmol/L Normal 3.5-5.1 [facility] Comment on above: Performed By: #### B MP #### [facility] [address] [address] [address] Nabil Che Sodium [Moles/Vol] 138 mmol/L Normal 136-145 [facility] Comment on above: Performed By: #### B MP #### [facility] [address] [address] [address] Nabil Che Urea nitrogen [Mass/Vol] 14.0 mg/dL Normal 7.0-18.0 [facility] Comment on above: Performed By: #### B MP #### [facility] [address] [address] [address] Nabil Che Urea nitrogen/Creatinine [Mass ratio] 10.4 mg/mg Normal [facility] Comment on above: Performed By: #### B MP #### [facility] [address] [address] [address] Nabil Che PROTIMEon 11-21-2021 INR Coag (PPP) [Relative time] 2.25 {INR} Normal [facility] Comment on above: Performed By: #### P SASC #### [facility] [address] [place] [address] Dr. Nabil Che INR GUIDELINES SEE BELOW Normal [facility] Comment on above: Result Comment: LETY RED INR: 2.0 - 3.0 CONDITIONS NOT LISTED BELOW 2.5 - 3.5 FOR PROSTHETIC HEART VALVE REPLACEMENT 2.5 - 3.5 RECURRENT THROMBOSIS Performed By: #### P SASC #### [facility] [address] [address] [address] Nabil Che PT Coag (PPP) [Time] 23.0 s Critically high 9.0-11.6 [facility] Comment on above: Performed By: #### P SASC #### [facility] [address] [address] [address] Nabil Che Lab Reportson 09-27-2021 Lab Reports [id number] 7B#1.00CD:127 Normal [facility] Lab Reports [id number] 9E#1.00CD:127 Normal [facility] Correspo ndenceon 09-26-2021 Outside [facility] Correspondence [id number] CC#1.00CD:127 Normal [facility] PROTIMEon 09-26-2021 INR Coag (PPP) [Relative time] 1.70 {INR} Normal [facility] Comment on above: Performed By: #### P SASC #### [facility] [address] [address] [address] Nabil Che INR GUIDELINES SEE BELOW Normal [facility] Comment on above: Result Comment: LETY RED INR: 2.0 - 3.0 CONDITIONS NOT LISTED BELOW 2.5 - 3.5 FOR PROSTHETIC HEART VALVE REPLACEMENT 2.5 - 3.5 RECURRENT THROMBOSIS Performed By: #### P SASC #### [facility] [address] [address] [address] Nabil Che PT Coag (PPP) [Time] 17.7 s Critically high 9.0-11.6 [facility] Comment on above: Performed By: #### P SASC #### [facility] [address] [address] [address] Nabil Che Reminderson 09-26-2021 Reminders -- [...] message given and verbalized understanding. 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 CD:[id number] IQj0sMh+PGhlYWQ+PE1 QHHYnL80dlHGpkQ5BK2 uLNT1KVXUQRAGCAH6NP E3gtUX3CTzsE5LggzHa NdsriSPmUO38LSg2QSV 5hBdeQKghzX8wlDLsT0 t0ScCbEM31eZ03RZwyG HDmBxW0KjOonkdmcUTc L1mpVwZpwNYcAfm+PHR hYmxlIHdpZHRoPScxMD ClFpShfJccGH9gGj6kJ GVyLWNvbGxhcHNlOiBj t7ywJVVmNJroHD7osTe mS2SazQG8ZECus7h7Rc 48dHI+XNHeUBE8gOnlS Hwyv754ZsTct4ntANJ3 gOKsHOhwMRR1G74pz1B 5YBCmTFNrKFV9uZC6oM 4gqKjrnnooF6DkeNZvP fQ6XFW3zJYsdX1jrWsq huydtC9aCeg+M83FKN7 IUBXLLW1CSnq1R7KmJv wvdHI+KK76AWZoBR32a ROexPVif5vmpDw7RgCp RLUqZQE2eHmrWEkbn3I eSSUhV45zqQZjm7Q0NZ KhyPkcyWHkDtNlbDT8z N1aUJvqkkcba1jbtjyj Psrlj3mstx78xR76D70 sHHllHSUuICU9PSZcSU PieYwold4dbM8iUu7+I Slcu4vwl2qroFw0LqEh ALFdacYkzPnrEFC3v2G uSa45W9HpnCvyk4TjPy t9ps71jPJdh5Z6hCH4W WbbUJIucL4sVVvyQlS9 OOJbUzEahB49bZSgBHd rWc2suYqgsRngQZ1zVI ExyunaURZffM8qJFOne YFuuDugNG8zCMIvcxfl l191WiMxRNK0JLHkgLG nS6AlmX7mHgQjTMKaEU SiV2GccTLxMIiqT528X RceYsW0NRHvysErY8Lk BWQktVzuHdC8s3G0Dy3 Lg5OwjkupTWB8YGqbVY U9XuKvMqJlQrX3H5DiN te9IVOdvHylBL9uE7El APWruorbwxqlmUC1GIB qHQAlfM00bXZkTBcfBb 2if0N0u788CUMoKKFup J99La7zdQbkDVKbxDAV lX5yinrue4zxayigBzO wPVCfOZl4YNc6DBVhkU hfUlDxVIJ3KiR5USR2c UKrfZ7svTxfxxrkyI5x Oyc+H80hnX0sUXR0XRY 6mogpWESnkvXnSV05VR 95F5BgJmdvfIShiWQ+P OJixtGmzPezYC5yAsXm f1wps4GtKUdfJ4CtXQY aOMgfIrh3SYYbKMB9pY F6nN4iOQCqLUgst1L4c WO0S6VubkSdxb6sj7zn METxEKfoW81nmKWio4F 4YRObyBX4RTPkiJioHc GgsF18Xms+PGNvbGdyb 7SlEeysy3sfu6nsgCy9 IjMwJSIgdmFsaWduPSJ 8s8YcNp49W72oAPpbVK RoPSIxNSUiIHZhbGlnb l2yeV1wLp5+PGNvbCB3 kHH3fB3xLKHmUvD9GMn zD131YeHbbCIpFrvrr2 dko7napHb9EhPzRJPvh uXkeJgcBJB6x7TgLg80 S16mMYfoRZWlNOIcKWO tHARrpCesqx6esJ8wNc 8+YV6bh7lmrw46jA81b HI+ICDoTWZ2tMmhXKbj QERfrC0pDPpeFeA1OAW kFnSmvE96fCWtNZjmBy 6iaLmzdKcuVX0hDJSjz cnfs214TnWev2mtVETx mXDwOXolKQJ4Z69vl3A 5YEPmMBBoSPJ9oSC8jM 1hbGlnbjogbGVmdDsgd dFjgZiuJWkmVFtkA737 IHRvcDsnPlBhdGllbnQ rNeWsTWd2C5LnAtd1KZ GfjSacUV1spFMfGKrjH r4agIdzpSzpZC5rGFLi okgbd112PyPul7qrJPT oqPEnLYrqFMF5H78fz8 V6YRUiUAZoSHC7yRN9a Q0lgIgzgwxgaCZnqZll zhPbcYluNQivKRgbN57 6IHRvcDsnPkJpcnRoIE SeyWO6OQ40PU78tADyl 9U4yGM7R4ZlHOIkiuvm qqmdxGX3OLIrOCQmuC8 8Sv5wmExwAa3kOQOvFG F9NTPvxQFwT6GveN3kI hKvAFXdQEJzQ8JxeYDz EHofQ483WPjbGcY6BZY iatKuY0RvFICdbNqrDq R1z2D4Ri7QY4B0YJ04M Y00wQFmi9F9vIE1O2Ki UNAkhuenickssMU7HHT qDSKabI95Xf4qkYfgTg 5hEVYsVNS0OAInoSDeD 7AbdH9eBuFoGVDyTUZl Y5BafHSyFDvtN178EEa uQrZ1RQPihbWcQ5HxVS YvjDfxCbK3g4O0Hs0PI Ib6LR84FJ95fKGvk9H8 oMB2C8YtXFHkaodevfw hgWE4MDQxYDUptA32Js 4liUdrDe5pVQViMBT1F LMbrQNeD0VzhE9qCnAj EMQdPOXrT5XayPPoVIi iZ980ZZzgZfH0SYHsry IwJ7HpDIHlzLyvGpL8s 0X6Ng2LRLNmCZ95MUJ3 dIL7EW09AH02M6JlNia vdGFibGU+PHRhYmxlIH dpZHRoPScxMDAlJyBzd WkfJC3pKn0qORJsFGFx kFcmfKIvEsAxz7kmRLJ kHPhiKI2pvWyzE8PebC A3TFIzm7d3Xw40P83jL 3JvdXA+PWUfvQH5mSV9 uJ0kVaWzSwV0GDouH73 9UhZvjWVnSuffr9mtd8 ycrOm0XwH5ZUUrfdCpg QunPXD1p3QiLd98U67c IHdpZHRoPSIxNSUiIHZ zkMcymd9zdP4jIv3+PG GyoTV3xYA8gG8bXuHmT fT4OMdaR560GrYfuFBt Iuwnn6pfu0rskLt6PdE tMQLpkoGwvGigFUD2h3 DzRh99C9XxlIsfm6XyH ae4hl21oHSny1W3wGO2 Y7BaLIKuwmwgyILaiAl sKB9rPCCvijwsFPWtkE 5cWWKmW4r8YdFfXjU9R XufL2QurdN1OKQjaWFu KLvuCGK9C45yc1V0DXS mJAWtWAD7hQQ7xR4mxI lnbjogbGVmdDsgdmVyd GatMCxtNArkU321RMIb eWquPYDgqJ9bEJQrvBK gvLbyRL0fYFSoepjdHp sISyTOJTSPYPOIYFM9F 3ZmDdp0FQEgtVcfMM2z rSAfLPqgTx8puFndcLc nOL4qPEJwifltXLXpbI 2bKACnzFLejYrrTO7lQ MPshidhi184HoUkRCD3 TJQzmSXlL8BkqH5lMxG eEGEaXBQzB4UmpZQiJZ pfM334SNniFtP8VQKgq cNtL5DoZIHafCueUmD7 c7V7Zy3iYx7nNU5tHWA kOG64IL32zSNjy0D8oM E7W2UkTAAyyhyimcifw QS4FCVdVETvrM19iGNm LIphIa5ya9A5j065SQE aBNKhlH15Rv3reYykKJ RklSNBdW7nmkojp6vyn itkGfGdVIZxENr3TVv2 LGZhrFzjElEmTMT0RrP 9WIB5wYLvzC8ypLuvpu okhH3tEll+NjAgWWVhc jH9S7DbFuh6WYJcnLcz DE8gtQMhWVzoNo6gxPr bjDnkSE1qESDodbheCE WwpK0bIAIahEAmhEbvY V2eAEZtkgnhm329QpGt AXF4GTCkiZCbH0VcbQ5 bZcEeQWWkBXYbC5LqwA IrSCvfM080KJbdGaG4G OQqhvYdC5WwZJYaaUgh IpX6l9C3Ay6HAJceBQ2 4NN74iZNsv6C1oWQ6D4 DwXTLaruznqrgvzZN4H CVcQNKmdS99zVUxYOen Ab2ca2O3r850XTYtDGF skB34Zn3mePaaKVQszX VJdT4vrztzg3woipcwH jYbTBZySJf1QLc7QJYh fHwkIpStGHW3VfX7AVR 9oCLwgO3pkVbvpcwffK 9wOyc+S7I1sSQ7oEIng DwvdGQ+FY02om99U6Cl UebtXtq4DZSdSJS0fQN 8tU9zZMKaEBgin9B3pA I6O0SopyJjju6mm3srH TKuONhaW12emUIyi7Y0 IEAnxDP6NFThxRjgHsL lfY43Kst+PGNvbGdyb3 NwTcgwf4tke8szdAv3Y jMwJSIgdmFsaWduPSJ0 x8OpMg61C68nDSogYJW oPSIzMCUiIHZhbGlnbj 4ubW9vTh8+EJSrbRI8g US2xG6bLtKiVeL0FOjv Y525DgDaqJFrEkmky2t am0oibHc5XaQeSWJckq AfuJjzVQW0g4IgCh39W 7NwqBgoa2SwNim5mh42 kBKca0G2xDF7K1UoSUG anctllLOygJreME9vDN RwvnzlKVGqnD8rNMZbR 6p8LwSkZyC7CFblN0Fy jjF2JASgbVWmBULycLE FsV6uxitpl6bcljzjQr ExRCYqLCl9NWa5OONrv IztNyKtYRB6WdQ5ISA6 aXMtuI7xpKkduhefdZ9 wOyc+PMo6j4brqMGqGZ 1aoUF9VL81TY41wEBgb 4F1iVC1Y5IiGZTwvqnw lmutwVK3QVYqEVVjkQ3 5Zy0zwOxpWy4sAABuEF A4XIIbzCAfN9GqbA8kJ gGzLFFeENFjC9LdqQKy MFpnE938QMlzWjA7AZP wniLoB9CrHRLfcCldDq Z2c1L4Mm4JUF81KZ74E L19nRWls3U0cJY1M6Hc RMNmamimknyurLP4RCZ tPVYnuO16Gi6evNpxUa 3xRXUlFZI5UGPrmUSxA 4RhkZ5pQxGrMVZaRNZe U6MdgKMqAGmnU767QYt hUrQ0NNYedoAjK0DaXQ ItlLrpBxH0q1R8Jr5ZK x35NV78DS42tSDfv3G1 tZA7W7XuSIYuhvjjbuz jdVI3BCAbUYPmjC45Dp 2zrLkpWx4hSHMpGTC4J HYszVElX8WpzL6bFzLu YKKyFLChC2LbxBPfYYc pI850XPnwIuA2QAZwtg JaY0AiFWKweZcpOgY6i 8T9Bb0JDFyhuct1C2Xh PjwvdHI+MB66VXVkUD0 3kBPgoFBjm9ptjFu4Ox HdAUJoIHQ5cDojJBdzu 3WlIJOtN39hlNTyb3P6 IGNv (more content not included)... Normal [facility] MRI Brain w/ + w/o Contrasto n [...] MultiHance Contrast amount in ml's: 20 Normal [facility] Consent for Treatmenton 08-22 Consent for Treatment [id number] BD#[id number]:127 Normal [facility] RAD - MRI Screening Formon 0 09-16-2021 RAD - MRI Screening Form [id number]#[id number]:127 Normal [facility] Ambulatory Visit Summaryon 0 09-09-2021 Ambulatory Visit [...] 1 year Where: [address] [place] [address]- You Need to Complete the Following MRI [...] prostate\.br\ Trigeminal neuralgia\.br\ Vasovagal attack\.br\ \.br\ [facility] Medicine Office/Clini c Noteon 09-09-2021 Family Medicine [...] he has his labs drawn monthly at [facility], but no results are documented or filed in the chart. Also takes Aciphex 20mg once daily. States this is still working well for him. Labs completed at [facility] on 09/05/21. States he has had a colonoscopy within the past [address] Estes ([facility] [place] History of Present Illness I have reviewed [...] spasm, # 30 tab(s), Refills(s) 0, Pharmacy: [facility]/pharmacy #[id number], 180.3, cm, 05/20/20 15:18:00 EST, Height/Length Dosing, 108.4, kg, 05/20/20 15:18:00 EST, Weight Dosing Follow-up With When Contact Information Jeancarlos GUDINO DO, FAM In 1 year [address] [place] [id number]- Additional Instructions: Problem List/Past Medical History [...] influenza virus vaccine, inactivated 02/12/2013 Recorded Normal [facility] Comment on above: Result Comment: Elec tronically Signed By: Jeancarlos GUDINO DO\.br\Date and Time Signed: 09/09/21 10:19 EDT Lab Reportson 08-31-2021 Lab Reports [id number] [id number]:127 Normal [facility] Tobacco Screening.on 022 Tobacco use status CPHS a) Yes -[facility] [facility] DO Work Phone: Tobacco Screening. Yes -[facility] [facility] DO Work Phone: CBCon 02-11-2019 Erythrocyte distribution width (RBC) [Ratio] 12.9 % Normal 11.5 - 14.5 [facility] Comment on above: Performed By: #### C BC #### [address] [address] Hematocrit (Bld) [Volume fraction] 48.1 % Normal 41.0 - 52.0 [facility] Comment on above: Performed By: #### C BC #### [address] [address] Hemoglobin (Bld) [Mass/Vol] 16.7 g/dL Normal 13.5 - 17.5 [facility] Comment on above: Performed By: #### C BC #### [address] [address] MCHC (RBC) [Mass/Vol] 34.7 g/dL Normal 32.0 - 36.0 [facility] Comment on above: Performed By: #### C BC #### [address] [address] MCV (RBC) [Entitic vol] 91 fL Normal 80 - 100 [facility] Comment on above: Performed By: #### C BC #### [address] [address] Platelets (Bld) [#/Vol] 182 10*3/uL Normal 150 - 450 [facility] Comment on above: Performed By: #### C BC #### [address] [address] RBC (Bld) [#/Vol] 5.26 x10E12/L Normal 4.50 - 5.90 [facility] Comment on above: Performed By: #### C BC #### [address] [address] WBC (Bld) [#/Vol] 9.3 10*3/uL Normal 4.4 - 11.3 [facility] Comment on above: Performed By: #### C BC #### [address] [address] CREATININEon 02-11-2019 Creatinine [Mass/Vol] 0.87 mg/dL Normal 0.50 - 1.30 [facility] Comment on above: Performed By: #### C REAT #### [address] [address] Creatinine [Mass/Vol] mg/dL Normal >60 [facility] Comment on above: Result Comment: CALC ULATIONS OF ESTIMATED GFR ARE PERFORMED USING THE MDRD STUDY EQUATION FOR THE IDMS-TRACEABLE CREATININE METHODS. CLIN CHEM 2007;53:766-72 Performed By: #### C REAT #### [address] [address] ELECTROLYTE PANELon 02-12-20 19 Anion gap [Moles/Vol] 12 mmol/L Normal 10 - 20 [facility] Comment on above: Performed By: #### E LECT #### [address] [address] Chloride [Moles/Vol] 105 mmol/L Normal 98 - 107 [facility] Comment on above: Performed By: #### E LECT #### [address] [address] HCO3 (Bld) [Moles/Vol] 28 mmol/L Normal 21 - 32 [facility] Comment on above: Performed By: #### E LECT #### [address] [address] Potassium [Moles/Vol] 4.1 mmol/L Normal 3.5 - 5.3 [facility] Comment on above: Performed By: #### E LECT #### [address] [address] Sodium [Moles/Vol] 141 mmol/L Normal 136 - 145 [facility] Comment on above: Performed By: #### E LECT #### [address] [address] UREA NITROGENon 02-11-2019 Urea nitrogen [Mass/Vol] 12 mg/dL Normal 6 - 23 [facility] Comment on above: Performed By: #### U BELÉN #### [address] [address] ALT (SGPT)on 12-26-2017 ALT enzyme act/vol 18 U/L Normal 10-52 [facility] Comment on above: Performed By: #### 1 [id number] ####[facility] [address] [place] [address] AST (SGOT)on 12-26-2017 AST enzyme act/vol 20 U/L Normal 13-39 [facility] Comment on above: Performed By: #### 1 [id number] ####[facility] [address] [place] [address] CBCon 12-26-2017 Erythrocyte distribution width Auto Ratio (RBC) 13.4 % Normal 12.0-15.4 [facility] Comment on above: Performed By: #### 2 [id number] ####[facility] [address] [place] [address] Hematocrit Auto Volume Fraction (Bld) 48.6 % Normal 38.4-54.9 [facility] Comment on above: Performed By: #### 2 [id number] ####[facility] [address] [place] [address] Hemoglobin mass conc (Bld) 16.3 g/dL Normal 12.8-17.7 [facility] Comment on above: Performed By: #### 2 [id number] ####[facility] [address] [place] [address] MCH Auto Entitic mass (RBC) 31.0 pg Normal 27.5-32.9 [facility] Comment on above: Performed By: #### 2 [id number] ####[facility] [address] [place] [address] MCHC Auto mass conc (RBC) 33.5 g/dL Normal 30.5-35.4 [facility] Comment on above: Performed By: #### 2 [id number] ####[facility] [address] [place] [address] MCV Auto Entitic volume (RBC) 92.6 fL Normal 83.3-98.2 [facility] Comment on above: Performed By: #### 2 [id number] ####[facility] [address] [place] [address] NRBC Absolute 0.00 10*3/uL Normal [facility] Comment on above: Performed By: #### 2 [id number] ####[facility] [address] [place] [address] NRBC Automated 0.0 /100{WBCs} Normal [facility] Comment on above: Performed By: #### 2 [id number] ####[facility] [address] [place] [address] Platelet mean volume Auto Entitic volume (Bld) 12.0 fL Normal 9.9-12.1 [facility] Comment on above: Performed By: #### 2 [id number] ####[facility] [address] [place] [address] Platelets Auto #/vol (Bld) 156 10*3/uL Normal 155-404 [facility] Comment on above: Performed By: #### 2 [id number] ####[facility] [address] [place] [address] RBC Auto #/vol (Bld) 5.25 10*6/uL Normal 4.08-6.37 [facility] Comment on above: Performed By: #### 2 [id number] ####[facility] [address] [place] [address] RDW SD 45.5 fL Normal 39.3-48.6 [facility] Comment on above: Performed By: #### 2 [id number] ####[facility] [address] [place] [address] WBC Auto #/vol (Bld) 7.2 10*3/uL Normal 4.2-11.0 [facility] Comment on above: Performed By: #### 2 [id number] ####[address] [place] [address] Creatinineon 12-26-2017 Creatinine mass conc 0.92 mg/dL Normal 0.50-1.30 [facility] Comment on above: Performed By: #### 1 [id number] ####[address] [place] [address] GFR/1.73 sq M.predicted MDRD vol rate/area mL/min/{1.73_m2} Normal [facility] Comment on above: Result Comment: Inte rpretation for Chronic Kidney Disease:Stages 1&2 >60 Healthy or potential kidney damage.Mild decrease of GFR.Stage 3 30-59 Moderate decrease of GFR.Stage 4 15-29 Severe decrease of GFR.Stage 5 <15 Kidney failure or on dialysis. Performed By: #### 1 [id number] ####[facility] [address] [place] [address] Electrolyte Panelon 12-27-19 18 Anion gap 3 molar conc 9 mmol/L Low - [facility] Comment on above: Performed By: #### 1 [id number] ####[facility] [address] [place] [address] Chloride molar conc 106 mmol/L Normal 98-107 [facility] Comment on above: Performed By: #### 1 [id number] ####[facility] [address] [place] [address] HCO3 molar conc (Bld) 29 mmol/L Normal 21-32 [facility] Comment on above: Performed By: #### 1 [id number] ####[facility] [address] [place] [address] Potassium molar conc 4.1 mmol/L Normal 3.5-5.1 [facility] Comment on above: Performed By: #### 1 [id number] ####[facility] [address] [place] [address] Sodium molar conc 140 mmol/L Normal 136-145 [facility] Comment on above: Performed By: #### 1 [id number] ####[facility] [address] [place] [address] Urea Nitrogenon 12-26-2017 Urea nitrogen mass conc 10 mg/dL Normal 6-23 [facility] Comment on above: Performed By: #### 1 [id number] ####[facility] [address] [place] [address] Vital Signs Date Time Vital Sign Value Performing Clinician Facility 02-13-2023 13:30-0400 Body height 181.61 cm Augustoalverto Stephanianguyễn Other [facility] Other 02-13-2023 13:30-0400 Body mass index (BMI) [Ratio] 32.73 kg/m2 Uche Porter Other [facility] Other 02-13-2023 13:30-0400 Body temperature 97.1 [degF] Uche Porter Other [facility] Other 02-13-2023 13:30-0400 Body weight 107.96 kg Uche Porter Other [facility] Other 02-13-2023 13:30-0400 Diastolic blood pressure 76 mm[Hg] Uche Porter Other [facility] Other 02-13-2023 13:30-0400 Respiratory rate 20 /min Uche Porter Other [facility] Other 02-13-2023 13:30-0400 SaO2% (BldA) [Mass fraction] 96 % Uche Porter Other [facility] Other 02-13-2023 13:30-0400 Systolic blood pressure 130 mm[Hg] Uche Porter Other [facility] Other 02-09-2023 10:45-0400 Body height 181.61 cm Regi Leong Other [facility] Other 02-09-2023 10:45-0400 Body mass index (BMI) [Ratio] 32.92 kg/m2 Regi Leong Other [facility] Other 02-09-2023 10:45-0400 Body weight 108.59 kg Regi Leong Other [facility] Other 02-09-2023 10:45-0400 Diastolic blood pressure 72 mm[Hg] Regi Leong Other [facility] Other 02-09-2023 10:45-0400 SaO2% (BldA) [Mass fraction] 97 % Regi Leong Other [facility] Other 02-09-2023 10:45-0400 Systolic blood pressure 118 mm[Hg] Regi Leong Other [facility] Other 12-12-2022 09:59-0400 Body height 180.34 cm Regi Leong Work Phone: [facility] 250 DO Work Phone: 12-12-2022 09:59-0400 Body mass index (BMI) [Ratio] 33.19 kg/m2 Regi Leong Work Phone: [facility] 250 DO Work Phone: 12-12-2022 09:59-0400 Body surface area Derived from formula 2.27 m2 Regi Leong Work Phone: [facility] 250 DO Work Phone: 12-12-2022 09:59-0400 Body weight 107.96 kg Regi Leong Work Phone: [facility] 250 DO Work Phone: 12-12-2022 09:59-0400 Diastolic blood pressure 64 mm[Hg] Regi Leong Work Phone: [facility] 250 DO Work Phone: 12-12-2022 09:59-0400 Heart rate 66 /min Regi Leong Work Phone: [facility] 250 DO Work Phone: 12-12-2022 09:59-0400 Systolic blood pressure 110 mm[Hg] Regi Leong Work Phone: [facility] [employer] [facility] 250 DO Work Phone: 11-07-2022 15:00-0400 Body height 181.61 cm Uche Porter Other [facility] Other 11-07-2022 15:00-0400 Body mass index (BMI) [Ratio] 33.14 kg/m2 Uche Porter Other [facility] Other 07-18-2023 15:00-0400 Body temperature 97.8 [degF] Uche Porter Other [facility] Other 11-07-2022 15:00-0400 Body weight 109.32 kg Uche Porter Other [facility] Other 11-07-2022 15:00-0400 Diastolic blood pressure 81 mm[Hg] Uche Porter Other [facility] Other 11-07-2022 15:00-0400 Respiratory rate 20 /min Uche Porter Other [facility] Other 11-07-2022 15:00-0400 SaO2% (BldA) [Mass fraction] 96 % Uche Porter Other [facility] Other 11-07-2022 15:00-0400 Systolic blood pressure 128 mm[Hg] Uche Porter Other [facility] Other 09-04-2022 10:00-0400 Body height 181.61 cm Regi Leong Other [facility] Other 09-04-2022 10:00-0400 Body mass index (BMI) [Ratio] 33.97 kg/m2 Regi Leong Other [facility] Other 09-04-2022 10:00-0400 Body weight 112.04 kg Regi Leong Other [facility] Other 09-04-2022 10:00-0400 Diastolic blood pressure 72 mm[Hg] Regi Leong Other [facility] Other 09-04-2022 10:00-0400 SaO2% (BldA) [Mass fraction] 92 % Regi Leong Other [facility] Other 09-04-2022 10:00-0400 Systolic blood pressure 118 mm[Hg] Regi Leong Other [facility] Other 06-07-2022 09:01-0500 Body height 180.34 cm Jeancarlos Gudino Work Phone: [facility] [place] 250 DO Work Phone: 06-07-2022 09:01-0500 Body mass index (BMI) [Ratio] 33.75 kg/m2 Jeancarlos Gudino Work Phone: [facility]-Ztrczwkobw-Kirj[facility] [place] 250 DO Work Phone: 06-07-2022 09:01-0500 Body surface area Derived from formula 2.29 m2 Jeancarlos Gudino Work Phone: LX-Rskvfmiqcu-Einrob [place] 250 DO Work Phone: 06-07-2022 09:01-0500 Body weight 109.77 kg Jeancarlos Gudino Work Phone: OS-Cnjykvivei-Kzaofq [place] 250 DO Work Phone: 06-07-2022 09:01-0500 Diastolic blood pressure 82 mm[Hg] Jeancarlos Gudino Work Phone: PT-Epznnbwzro-Eptisf [place] 250 DO Work Phone: 06-07-2022 09:01-0500 Heart rate 52 /min Jeancarlos Gudino Work Phone: VK-Icdtenahqk-Ykcxmn [place] 250 DO Work Phone: 06-07-2022 09:01-0500 Systolic blood pressure 130 mm[Hg] Jeancarlos Gudino Work Phone: SR-Azbfffchxf-Tiarbm [place] 250 DO Work Phone: 12-06-2021 09:15-0400 Body height 180.34 cm Jeancarlos Gudino Work Phone: [facility] 250 DO Work Phone: 12-06-2021 09:15-0400 Body mass index (BMI) [Ratio] 32.78 kg/m2 Jeancarlos Gudino Work Phone: [facility] 250 DO Work Phone: 12-06-2021 09:15-0400 Body surface area Derived from formula 2.26 m2 Jeancarlos Gudino Work Phone: [facility] 250 DO Work Phone: 12-06-2021 09:15-0400 Body weight 106.6 kg Jeancarlos Gudino Work Phone: [facility] 250 DO Work Phone: 12-06-2021 09:15-0400 Diastolic blood pressure 70 mm[Hg] Jeancarlos Gudino Work Phone: [facility] 250 DO Work Phone: 12-06-2021 09:15-0400 Heart rate 50 /min Jeancarlos Gudino Work Phone: [facility] 250 DO Work Phone: 12-06-2021 09:15-0400 Systolic blood pressure 136 mm[Hg] Jeancarlos Gudino Work Phone: [facility] 250 DO Work Phone: 09-09-2021 09:34-0400 Blood Pressure Location Jeancarlos GUDINO [facility] 09-09-2021 09:34-0400 Body temperature 97.52 [degF] Jeancarlos GUDINO [facility] 09-09-2021 09:34-0400 Diastolic blood pressure 74 mm[Hg] Jeancarlos GUDINO [facility] 09-09-2021 09:34-0400 Heart rate 60 /min Jeancarlos GUDINO [facility] 09-09-2021 09:34-0400 SaO2% (BldA) [Mass fraction] 95 % Jeancarlos GUDINO [facility] 09-09-2021 09:34-0400 Systolic blood pressure 122 mm[Hg] Jeancarlos GUDINO [facility] 05-24-2021 15:13-0500 Body height 180.34 cm Jeancarlos Gudino Work Phone: [facility] 250 DO Work Phone: 05-24-2021 15:13-0500 Body mass index (BMI) [Ratio] 32.36 kg/m2 Jeancarlos Gudino Work Phone: [facility] 250 DO Work Phone: 05-24-2021 15:13-0500 Body surface area Derived from formula 2.25 m2 Jeancarlos Gudino Work Phone: [facility] 250 DO Work Phone: 05-24-2021 15:13-0500 Body weight 105.24 kg Jeancarlos Gudino Work Phone: [facility] 250 DO Work Phone: 05-24-2021 15:13-0500 Diastolic blood pressure 78 mm[Hg] Jeancarlos Gudino Work Phone: [facility] 250 DO Work Phone: 05-24-2021 15:13-0500 Heart rate 61 /min Jeancarlos S Terese Work Phone: [facility] 250 DO Work Phone: 05-24-2021 15:13-0500 Systolic blood pressure 119 mm[Hg] Jeancarlos Gudino Work Phone: [facility] 250 DO Work Phone: Encounters Encounter Date Encounter Type Care Provider Facility Start: 08-07-2023 End: 08-07-2023 ambulatory Regi Leong Facility:[facility] Start: 08-07-2023 End: 08-07-2023 ambulatory MD Regi Leong Work Phone: [facility] Work Phone: Start: 08-07-2023 End: 08-07-2023 Patient encounter procedure MD Regi Leong Work Phone: [facility] [address] Work Phone: Start: 07-27-2023 Non-patient / Non-visit MD Maribel Leong Work Phone: [facility] Work Phone: Start: 06-12-2023 Non-patient / Non-visit MD Maribel Leong Work Phone: [facility] Work Phone: Start: 02-13-2023 End: 02-13-2023 ambulatory Uche Porter Other [facility] [employer] Other Start: 02-13-2023 Office outpatient vi sit 25 minutes Kamal German [facility] Start: 02-09-2023 End: 02-09-2023 ambulatory Regi Leong Other [facility] [employer] Other Start: 02-09-2023 Office outpatient vi sit 15 minutes Regi Leong [facility] Start: 02-01-2023 End: 02-01-2023 ambulatory Kamal Changuyễn Facility:[facility] Start: 01-05-2023 Telephone encounter Regi garcia Work Phone: [facility] 250 DO Work Phone: Start: 12-12-2022 Office outpatient vi sit 25 minutes Regi Leong Work Phone: [facility] 250 DO Work Phone: Start: 12-12-[address] Jeancarlos López Facility: Start: 11-07-2022 End: 11-07-2022 ambulatory Kamal Chaban Other [employer] Other Start: 11-07-2022 Office outpatient vi sit 15 minutes Kamal Chaban [facility] Start: 10-30-2022 End: 10-30-2022 ambulatory Regi Leong Other [employer] Other Start: 10-30-2022 Telephone encounter Regi Leong [facility] Start: 10-13-2022 End: 10-13-2022 ambulatory Augustoal German Facility:[facility] Start: 09-29-2022 End: 09-29-2022 ambulatory Regi Leong Other [employer] Other Start: 09-29-2022 Telephone encounter Regi Leong [facility] Start: 09-21-2022 End: 09-21-2022 ambulatory Regi Leong Other [employer] Other Start: 09-21-2022 Telephone encounter Regi Leong [facility] Start: 09-04-2022 Encounter for genera l adult medical examination without abnormal findings Regi Leong [facility] Start: 09-04-2022 Initial preventive medicine new patient 40-64yrs Regi Leong [facility] Start: 09-04-2022 End: 09-05-[address] REGI LEONG [employer] Other Start: 07-27-2022 End: 07-28-[address] JEANCARLOS GUDINO Facility:[facility] Start: 06-07-2022 End: 06-08-[address] CARLY GAMBLE Facility:[facility] Start: 06-07-2022 Office outpatient vi sit 25 minutes Jeancarlos Gudino Work Phone: [facility] DO Work Phone: Start: 06-07-[address] Jeancarlos Larios [facility] Facility:[id number] Start: 05-24-2022 End: 05-25-[address] JEANCARLOS [...] sit 25 minutes Jeancarlos Gudino Work Phone: [facility] 250 DO Work Phone: Start: 11-21-2021 End: 11-22-[address] JEANCARLOS GUDINO Facility: Start: 09-26-2021 End: 09-27-[address] JEANCARLOS GUDINO Facility: Start: 09-16-2021 End: 09-17-2021 ambulatory Jeancarlos GUDINO [place] Start: 09-09-2021 End: 09-10-2021 ambulatory Jeacnarlos GUDINO Facility:[facility] Start: 09-09-2021 End: 09-09-2021 Patient encounter procedure Jeancarlos GUDINO [facility] Start: 09-09-2021 End: 09-09-2021 Well adult monitoring check done Jeancarlos GUDINO [facility] Start: 05-24-2021 Office outpatient vi sit 25 minutes Jeancarlos Gudino Work Phone: [facility] 250 DO Work Phone: Start: 03-11-2021 Patient encounter procedure Jeancarlos Gudino Work Phone: [facility] 250 DO Work Phone: Start: 03-08-2021 Patient encounter procedure Jeancarlos S Terese Work Phone: [facility] [address] [place] Work Phone: Start: 02-03-2021 Rx Renewal Jeancarlos Finney Gran t Work Phone: [facility] [place] Work Phone: Start: 12-26-2017 Patient encounter CARLY GAMBLE Fac ility:[id number] Start: 02-20-2017 End: 02-21-2017 Ambulatory DEFAULT PHYSICIAN Facility:[facility] Procedures Date Procedure Procedure Detail Performing Clinician Start: 08-07-2023 CT of chest without contrast MD Regi Leong Work Phone: Start: 09-04-[address] TEODORO GUDINO Comment on above: Performed By: #### P [facility] #### [facility] [address] [place] [address] Dr. Nabil Che Catheter ablation of arrhythmogenic focus Jeancarlos Gudino Work Phone: Cholecystectomy Jeancarlos duncan Work Phone: Colonoscopy Jeancarlos Gudino Work Phone: Plan of Treatment Date Care Activity Detail Author Start: 06-19-2023 FUV, Provider: Carly Gamble, Status: Pen, Time: 10:40 AM FUV, Provider: Carly Gamble, Status: Pen, Time: 10:40 AM [facility] 250 DO Work Phone: Start: 12-12-2022 FUV, Provider: Carly Gamble, Status: Pen, Time: 9:50 AM FUV, Provider: Carly Gamble, Status: Pen, Time: 9:50 AM [facility] 250 DO Work Phone: Start: 09-11-2022 ambulatory Ambulatory Facility:[facility] Start: 06-07-2022 FUV, Provider: Carly Gamble, Status: Pen, Time: 9:10 AM FUV, Provider: Carly Gamble, Status: Pen, Time: 9:10 AM [facility] 250 DO Work Phone: Start: 12-06-2021 FUV, Provider: Carly Gamble, Status: Pen, Time: 9:10 AM FUV, Provider: Carly Gamble, Status: Pen, Time: 9:10 AM -[facility] 250 DO Work Phone: Start: 05-24-2021 FUV, Provider: Carly Gamble, Status: Pen, Time: 3:00 PM FUV, Provider: Carly Gamble, Status: Pen, Time: 3:00 PM -[facility] [place] Work Phone: Start: 03-11-2021 EVENT CARLITOS, Provider : YESSICA PETER CLAIMS ATTORNEY 1,[id number], Status: Pen, Time: 10:30 AM EVENT CARLITOS, Provider: YESSICA PETER CLAIMS ATTORNEY 1,[id number], Status: Pen, Time: 10:30 AM [facility] [place] Work Phone: Immunizations Immunization Date Immunization Notes Care Provider Fa star 01-21-2014 influenza virus vaccine, unspecified formulation Jeancarlos Gudino Work Phone: [facility] 250 DO Work Phone: 02-12-2013 influenza virus vaccine, unspecified formulation Jeancarlos GUDINO [facility] 04-23-2008 pneumococcal polysaccharide vaccine, 23 valent Jeancarlos Gudino Work Phone: [facility] 250 DO Work Phone: 04-23-2003 pneumococcal polysaccharide vaccine, 23 valent Jeancarlos Gudino Work Phone: [facility] 250 DO Work Phone: influenza virus vaccine, unspecified formulation Jeancarlos Gudino Work Phone: [facility] 250 DO Work Phone: Comment on above: 2012 2011 2009 2008 NEGATED: Highlighted row has not occurred!05-20-2020 influenza virus vaccine, unspecified formulation Jeancarlos GUDINO [facility] Payers Date Payer Category Payer Self-pay 1960 Unknown [id number] 1960 Unknown [id number] 2.16.840.1.061189.3.579.2.727 1961 Unknown [id number] 2.16.840.1.697543.3.579.2.727 1961 Unknown [id number] 2.16.840.1.780646.3.579.2.593 1961 Unknown [id number] 2.16.840.1.323837.3.579.2.593 1961 Unknown [id number] 2.16.840.1.618336.3.579.2.593 1961 Unknown [id number] 2.16.840.1.472110.3.579.2.593 1961 Unknown [id number] 2.16.840.1.504556.3.579.2.593 1961 Unknown [id number] 2.16.840.1.835032.3.579.2.593 1961 Unknown [id number] 2.16.840.1.662594.3.579.2.593 1961 Unknown [id number] 2.16.840.1.541726.3.579.2.593 1961 Unknown [id number] 2.16.840.1.336155.3.579.2.593 1961 Unknown [id number] 2.16.840.1.942655.3.579.2.593 1961 Unknown [id number] 2.16.840.1.564254.3.579.2.593 1961 Unknown [id number] 2.16.840.1.444613.3.579.2.593 1961 Unknown [id number] 2.16.840.1.294537.3.579.2.356 1961 Unknown [id number] 2.16.840.1.575997.3.579.2.356 1959 Department of [facility] e ( and others) [id number] Unknown Unknown [id number] 2.16.840.1.342087.3.579.2.531 Unknown [id number] 2.16.840.1.056641.3.579.2.531 Unknown [id number] 2.16.840.1.188286.3.579.2.531 Social History Date Type Detail Facility Daily caffeine consumption Daily caffeine consumption [facility] 250 DO Work Phone: Comment on above: 1-2 mixed drinks a m onth; 1 ppd; 1-2 mixed drinks a w karuk; 1 decaff coffee; Start: 09-09-2021 Tobacco smoking status Heavy t obacco smoker (finding) [facility] Tobacco smoking status Never [facility] Sex Assigned At Male [facility] Start: 1960 Sex Assigned At Male F [facility] Clinical Notes 08-25-2021 to 02-13-2023 Note Date & Type Note Facility 02-13-2023 Evaluation note Encounter Date Diagnosis Assessment Notes Jan, Lung nodule (ICD-10 - R91.1) Jan, Tobacco use disorder (ICD-10 - F17.200) [facility] Other 10-20-2023 Evaluation note* Encounter Date Diagnosis Assessment Notes Treatment Notes Treatment Clinical Notes Jan, Benign paroxysmal positional vertigo, unspecified laterality (ICD-10 - H81.10) Order printed for PT. Pt will call and set up appt. Jan, Mixed hyperlipidemia (ICD-10 - E78.2) Recheck labs. Pt had adverse side effects to crestor. [facility] Other 07-18-2023 Evaluation note* Encounter Date Diagnosis Assessment Notes Treatment Notes Treatment Clinical Notes Oct, Lung nodule (ICD-10 - R91.1) Oct, Nicotine dependence, cigarettes, uncomplicated (ICD-10 - F17.210) [facility] Other 05-15-2023 Evaluation note* Encounter Date Diagnosis [...] Dr. Finley - will set up with [facility] August, Nicotine dependence, cigarettes, uncomplicated (ICD-10 - F17.210) agrees to LDCT and chantix. discussed side effects of chantix. August, Screening for colon cancer (ICD-10 - Z12.11) agrees to cologuard August, GERD without esophagitis (ICD-10 - K21.9) requests refill of Aciphex. [facility] Other 05-05-2022 Hospital Discharge instructions Follow Up Care 08/25/2021 11:29:08 With:Jeancarlos GUDINO DO, FAM Address: [address] [place] [address]- When:Within 1 Year(s) [facility] Evaluation + Plan note Future Appointments Appointment Date:09/16/2021 04:00:00 PM Scheduled [facility]: [facility] () Appointment Date:09/11/2022 10:00:00 AM Scheduled Provider:Jeancarlos GUDINO DO Location:[facility] Appointment Type: Open Future Scheduled Tests Laboratory* PSA Screen, Total 08/29/21 * CBC w/ Auto Diff 08/29/21 * Comprehensive Metabolic Panel 08/29/21 * Lipid Panel 08/29/21 Radiology* MRI Brain w/o Contrast 09/16/21 [facility] Evaluation noteNo [facility] Other Evaluation noteNo assessment information available [facility] Work Phone: Hisvwjl general Narrative - Reported* Type Description Date Medical History Afib Medical History IBS Medical History Protruding disc C4-C5 Surgical History Cholecystectomy 2005 Surgical History Ablation on heart Surgical History Colonoscopy - Dr. Estes 2005 [facility] Other Hospital course Narrative No data available for this section [facility] Reason for visit Narrative* Indication: Atrial fibrillation [...] Enrollment sent to: [employer] * Monitor number [id number] applied. * Holter monitor printed and placed on Dr. Higinio Tyson MD desk to dictate. -[facility] 250 DO Work Phone: Summary Purpose Family [...] for the problems noted below. He reports [facility] palpitations since he started taking magnesium. His [...] He has active lifestyle and is in residential at the present time. His examination is [...] He has active lifestyle and is in residential at the present time. His examination is [...] any palpitations since he started taking magnesium [id number]. He is on Multaq and his rhythm [...] and content) DATE CREATED AUTHOR 10/16/2017 [facility] DATE CREATED AUTHOR AUTHOR'S ORGANIZ ATION 01/30/2018 [facility] DATE CREATED AUTHOR AUTHOR'S ORGANIZ ATION 02/14/2019 [facility] DATE CREATED AUTHOR AUTHOR'S ORGANIZ ATION 07/31/2022 Ruth Clifford [facility] DATE CREATED AUTHOR AUTHOR'S ORGANIZ ATION 09/05/2022 [facility] DATE CREATED AUTHOR AUTHOR'S ORGANIZ ATION 12/13/2022 [facility] DATE CREATED AUTHOR AUTHOR'S ORGANIZ ATION 12/13/2022 [facility] DATE CREATED AUTHOR AUTHOR'S ORGANIZ ATION 08/11/2023 [facility] Reason for Visit (unrecogniz ed section and content) Event Monitor:ABHINAV is here f or the application of a 30 day event monitor in office., Diagnosis: PAFOrdering Physician: Dr. Carly Gamble MDEnrollment sent to: [employer]Monitor number [id number] applied.[email or web address] wk f/u Lung Nodule3 mo f/u [...] BE BASED ON THE PRIMARY CLINICAL RECORDS. [facility]. provides no warranty or guarantee of the accuracy or completeness of information in this document.
[2023-11-28 12:46] LABS: INR 1.59; Prothrombin Time 16.1 sec (9.0-11.6)
== END 2023-11-28 12:21 | disposition home or self-care (01) ==
LOC: LAB 12:23
PROVIDERS: PCP Family Medicine; Visit Provider Family Medicine
DX: I48.0 Paroxysmal atrial fibrillation (principal)
CPT/HCPCS: 36415; 85610

== ENCOUNTER 2024-03-25 09:40 | Outpatient (OUT) | payer OTHER, SELFPAY ==
--- OUTSIDE RECORDS SUMMARY | 2024-03-25 09:59 | XMS_ITS | CCD ---
Author Organization [facility] Team Providers Care Aircraft Parts Assembler Name Role Phone PHYSICIAN, DEFAULT Unavailable Unavailable [...] Finney Primary Care Unavailable TERESE, DR JEANCARLOS Malloyitting Unavailable DRE, DR CARLY White Consulting Unavailable GAMBLE, DR CARLY White Attending Unavailable DRE, DR CARLY White Admitting Unavailable TERESE, DR [...] TERESE, DR JEANCARLOS Finney Primary Care Unavailable Chaban, Kamal Unavailable Regi Leong Unavailable Terese, Dr. Jeancarlos Dhillon Primary Care Simranvafranck Gamble, Dr. Carly Godoy Attending Simran vailable Gamble, Dr. Carly Godoy Referring Simran vailable Terese, Dr. Jeancarlos Dhillon Primary Care Unavai lable Gamble, Dr. Carly Godoy Attending Simran vailable Gamble, Dr. Carly Godoy Referring Simran vailable MD Regi Leong Primary Care Provider MD Uche Porter Attending Provider Chaban, Kamal Admitting Unavailable Chaban, Uche Attending Unavailable Regi Leong Primary Care Unavailable Regi Leong Primary Care Unavailable Chaban, Kamal Admitting Unavailable German, Uche Attending Unavailable German, Uche Attending Unavailable Regi Leong Primary Care Unavailable German, Uche Admitting Unavailable CARLY GAMBLE Attending Unavailable REGI LEONG Primary Care Unavailable CARLY GAMBLE Attending Unavailable CARLY GAMBLE Referring Unavailable REGI LEONG Primary Care Unavailable Allergies Allergy Classification Reported Allergen(s) Allergy Type Date of Onset Reaction(s) Facility (17 sources) dabigatran etexilate; Translations: [Pradaxa CAPS] Drug Allergy bleeding -[address] Work Phone: (14 sources) Penicillins; Translations: [Penicillins] Allergy to drug (finding) 4 anaphylaxis -[facility] [address] [place] Work Phone: (2 sources) dabigatran etexilate; Translations: [dabigatran] Drug Allergy Rectal hemorrhage (disorder), Bleeding from nose (finding), Incontinence (finding) [facility] (8 sources) Penicillin; Translations: [penicillin] Drug Allergy 7 anaphylaxis [facility] Repository (3 sources) dabigatran etexilate; Translations: [dabigatran etexilate] Drug Allergy [address] [facility] (1 source) Penicillins Drug allergy (disorder) [address] [facility] Repository (1 source) rosuvastatin; Translations: [ROSUVASTATIN] Drug Allergy 4 [facility] 3 Repository Medications Current Medications Medication Drug Class(es) Dates Sig (Normalized) Sig (Original) Aciphex 20 mg Tab-EC (1 source) Start: 05-21-2021 take 1 tablet by mouth once daily Aciphex 20 mg Tab-EC 20 mg = 1 tab(s), Oral, Daily, # 90 tab(s), Refills(s) 3, Pharmacy: [facility], 180.3, cm, 05/20/20 15:18:00 EST, [...] BID, # 60 EA, Refills(s) 5, [facility]: [facility] Start Date: 12/02/18 Status: Ordered [...] sunday, # 150 tab(s), Refills(s) 3, [facility]: [facility], 180.3, cm, 05/20/20 15:18:00 EST, Height/Length Dosing, 10... Start Date: 02/08/21 Status: Ordered Warfarin 5mg 5 m g 1 tab orally tu, , sat, & sun Active Warfarin 5mg 5 m g 1 & 1/2 tab orally Mon, wed, & fri Active Completed/Discontinued Medications Medication Drug Class(es) Dates Sig (Normalized) Sig (Original) docosahexaenoic acid 120 mg / eicosapentaenoic acid 180 mg oral capsule (3 sources) take 2 capsules by mouth twice daily [place] 3 1000 MG Oral Capsule TAKE 2 [...] [Atrial fibrillation] Onset: 11-22-2021 Chronic Cardiac dysrhythmias (1 source) Cardiac dysrhythmias Onset: 12-26-2017 Chronic kidney disease (4 sources) Chronic kidney disease; Translations: [Chronic kidney disease, stage 3a (Multi)] Onset: 04-09-2023 Conditions associated with dizziness or vertigo (3 sources) Dizziness and giddiness; Translations: [Dizziness and giddiness] Onset: 09-09-2021 Episodic Disorders of lipid metabolism (20 sources) Hypertriglyceridemia; Translations: [Pure hyperglyceridemia] Onset: 04-09-2023 Resolved: 12-12-2022 Chronic Esophageal disorders (10 sources) Gastroesophageal reflux disease; Translations: [GERD [Gastroesophageal reflux disease]] Chronic Other aftercare (6 sources) Drug therapy finding; Translations: [Long-term (current) use of other medications] Episodic Other aftercare (4 sources) Encounter for therapeutic drug level monitoring; Translations: [ENC THERAPEUTC DRUG LEVL MONITORING] Onset: 07-27-2022 Episodic Other aftercare (3 sources) Other terminal block assembler (current) drug therapy; Translations: [OTH TECHNICAL DATA ANALYST CURRENT DRUG THERAPY] Onset: 06-12-2022 Episodic Other [...] sources) Obesity; Translations: [Obesity, unspecified] Chronic Other nutritional; endocrine; and metabolic disorders (2 sources) Body mass index (BMI) 30.0-30.9, adult; Translations: [Body mass index (BMI) 30.0-30.9, adult] Onset: 01-04-2024 Chronic Other screening for suspected conditions (not [...] Smokes tobacco daily; Translations: [Tobacco use disorder] Onset: 05-04-2023 Chronic Comment on above: 1 ppd; Syncope (1 source) Vasovagal attack 07-01-2013 Episodic Transient cerebral ischemia (8 sources) Transient cerebral ischemia; Translations: [Unspecified transient cerebral ischemia] Onset: 04-09-2023 Chronic Unclassified (2 sources) Other alf (current) drug therapy / Z79.899(ICD-9) Onset: 12-26-2017 [...] Translations: [Unspecified visual disturbance] Resolved: 12-12-2022 Episodic Cardiac dysrhythmias (8 sources) Palpitations; Translations: [Palpitations] Onset: 04-09-2023 Episodic Chronic kidney disease (5 sources) Chronic kidney disease stage 3A ; Translations: [Chronic kidney disease, Stage III (moderate)] Resolved: 12-12-2022 Chronic Unclassified (1 source) Other terminal block assembler (current) drug therapy; Translations: [Other alf (current) drug therapy] Onset: 12-26-2017 Results Test Name Value Interpretation Reference Range Facil ity CT chest wo conon 08-07-2023 CT chest wo [facility] [place] [address] [place] [address] CT Scan Report Signed Patient: Abhinav Felix MR#: [id number] : 1960 Acct:[id number] Age/Sex: 63 / M ADM Date: 08/07/23 Loc: [facility] Room: Type: [facility] Attending Dr: Uche Porter MD Copies to: [...] Aracelis Banks M.D.08/07/2023 4:29 PM Dictation Location: [place] [address] Transcribed By: [facility] 08/07/23 1629 Dictated By: Aracelis Banks MD 08/07/23 1621 Signed By: 08/07/23 1629 Normal [facility] Cholesterol in LDL Calc [Mas s/Vol]on 06-12-2023 Cholesterol in LDL [Mass/Vol] 54.0 mg/dL [facility] Comment on above: <100 mg/dl [id number] 0-129 mg/dl NEAR OR ABOVE [id number] mg/dl BORDERLINE [id number] mg/dl HIGH>190 mg/dl VERY HIGH Cholesterol in VLDL Calc [Ma ss/Vol]on 06-12-2023 Cholesterol in VLDL [Mass/Vol] 48.0 mg/dL [facility] Estimated glomerular filtrat ion rate (GFR) non- Americanon 06-12-2023 GFR/1.73 sq M.predicted among non-blacks MDRD (S/P/Bld) [Vol rate/Area] mL/min/{1.73_m2} >=[address] [facility] Globulin Calc (S) [Mass/Vol] on 06-12-2023 Globulin (S) [Mass/Vol] 4.4 g/dL [facility] Laboratory - Chemistry and C hemistry - challengeon 06-12-2023 Albumin [Mass/Vol] 3.3 g/dL 3.4-5.0 [facility] ALP [Catalytic activity/Vol] 93 U/L 46-[address] [facility] ALT [Catalytic activity/Vol] 28 U/L 16-[address] [facility] AST [Catalytic activity/Vol] 18 U/L 15-[address] [facility] Bilirubin [Mass/Vol] 0.6 mg/dL 0.2-1.0 [facility] Calcium [Mass/Vol] 8.6 mg/dL 8.5-10.1 [facility] Chloride [Moles/Vol] 103 mmol/L 98-107 [facility] Cholesterol [Mass/Vol] 135 mg/dL <=[address] [facility] Cholesterol in HDL [Mass/Vol] 33 mg/dL 40-[address] [facility] Comment on above: > or =60 mg/dl - LOW CARDIOVASCULAR RISK<40 mg/dl - HIGH CARDIOVASCULAR RISK CO2 [Moles/Vol] 28.4 mmol/L 21.0-32.0 [facility] Creatinine [Mass/Vol] 0.93 mg/dL 0.70-1.[address] [facility] GFR/1.73 sq M.predicted MDRD (S/P/Bld) [Vol rate/Area] mL/min/{1.73_m2} >=[address] [facility] Glucose [Mass/Vol] 85 mg/dL 74-106 [facility] Potassium [Moles/Vol] 4.3 mmol/L 3.5-5.[address] [facility] Protein [Mass/Vol] 7.7 g/dL 6.4-8.2 [facility] Sodium [Moles/Vol] 140 mmol/L 136-145 [facility] Triglyceride [Mass/Vol] 240 mg/dL <=[address] [facility] Urea nitrogen [Mass/Vol] 11.0 mg/dL 7.0-18.[address] [facility] Urea nitrogen/Creatinine [Mass ratio] 11.8 mg/mg [facility] Serum or plasma albumin/glob ulin mass ratioon 06-12-2023 Albumin/Globulin [Mass ratio] 0.8 {ratio} [facility] Serum or plasma anion gap de terminationon 06-12-2023 Anion gap [Moles/Vol] 12.9 mmol/L [facility] Serum or plasma total choles terol/high density lipoprotein (HDL) cholesterol mass juan miguel 06-12-2023 Cholesterol.total/Ch olesterol in HDL [Mass ratio] 4.1 {ratio} [facility] Comment on above: 3.3 - 4.4 LOW RISK4. 4 - 7.1 AVERAGE RISK7.1 - 11.0 MODERATE RISK>11.[address] lung screeningon 02-02-20 CT lung screening [facility] [place] [address] [place] [address] CT Scan Report Signed Patient: Abhinav Felix MR#: [id number] : 1960 Acct:[id number] Age/Sex: 62 / M ADM Date: 02/01/23 Loc: [facility] Room: Type: [facility] Attending Dr: Uche Porter MD Copies to: [...] LDCT. Impression dictated by: Yannick Lockwood Jr., DSwapnaOSwapna02/01/2023 2:00 PM Dictation Location: [facility]--14 Transcribed By: KIANA 02/01/23 1400 Dictated By: Yannick Lockwood Jr, DO 02/01/23 1348 Signed By: 02/01/23 1400 Normal [facility] Office Visit (Cardiology)on 12-12-2022 [...] Weight Tips; Status:Complete - Retrospective Authorization; Done: [id number] Some eating tips that can help you lose weight.; Status:Complete - Retrospective Authorization; Done: [id number] Paroxysmal atrial fibrillation Renew: Multaq 400 MG Oral Tablet; TAKE 1 TABLET TWICE DAILY, WITH MORNING AND EVENING MEAL IO EKG Electrocardiogram- 12 Lead; Status:Complete; Done: [id number] Renew: Nebivolol HCl - 10 MG Oral [...] we can help. You may also call [phone] for free resources and assistance.; Status:Complete - Retrospective Authorization; Done: [id number] Tobacco Use Screening; Status:Complete; Done: [id number] Patient Instructions Please bring all medicines, vitamins, [...] Vital Signs (more content not included)... Normal [facility] Tobacco Screening.on 023 Fall risk assessment b) One or more falls in the last year [facility] 250 DO Work Phone: Tobacco use status [facility] a) Yes [facility] 250 DO Work Phone: Tobacco Screening. Yes [facility] 250 DO Work Phone: Glucose Poct Glucometerson 0 10-13-2022 Glucose [Mass/Vol] 114 mg/dL Normal [facility] Comment on above: Result Comment: [facility] Glucose Reference Range is dependent on time and content of last meal. Glucose of more than 200 mg/dL in a nonstressed, ambulatory subject supports the diagnosis of Diabetes Mellitus. PERFORMED BY: [place] [address] PATHOLOGIST [employer] LEXA VALDEZ M.D. Performed By: #### G LUPRAFUL #### Point of Care testing , PET tumor init tx strat sb-m ton 10-13-2022 PET tumor init tx strat sb-mt [facility] [place] [address] [place] [address] Nuclear Medicine Report Signed Patient: Abhinav Felix MR#: [id number] : 1960 Acct:[id number] Age/Sex: 62 / M ADM Date: 10/13/22 Loc: Room: Type: [facility] Attending Dr: Uche Porter MD Copies to: Yannick Lockwood Jr, DO Uche Porter MD Ordering Provider: Uche Porter MD Date of Service: 10/13/22 PET/PET tumor init tx [facility] sb-mt: R91.1 PET/CT FUSION IMAGING CLINICAL INFORMATION: [...] Lockwood Jr., D.O.10/13/2022 1:03 PM Dictation Location: [place] [address] Transcribed By: [facility] 10/13/22 1303 Dictated By: Yannick Lockwood Jr, DO 10/13/22 1101 Signed By: 10/13/22 1303 Normal [facility] CBC AUTO DIFFon 09-04-2022 BASO # 0.1 103/ul Normal 0.0-0.1 [facility] Comment on above: Performed By: #### P SASC #### [facility] [address] [place] [address] [address] Nabil Che Basophils/100 WBC (Bld) 0.9 % Normal 0.2-2.0 [facility] Comment on above: Performed By: #### P SASC #### [facility] [address] [place] [address] [address] Nabil Che EO # 0.3 103/ul Normal 0.0-0.7 [facility] Comment on above: Performed By: #### P SASC #### [facility] [address] [place] [address] [address] Nabil Che Eosinophils/100 WBC (Bld) 3.3 % Normal 0.9-7.0 [facility] Comment on above: Performed By: #### P SASC #### [facility] [address] [place] [address] [address] Nabil Che Erythrocyte distribution width (RBC) [Ratio] 13.2 % Normal 11.0-15.0 [facility] Comment on above: Performed By: #### P SASC #### [facility] [address] [place] [address] [address] Nabil Che Hematocrit (Bld) [Volume fraction] 51.1 % Normal 42.0-54.0 [facility] Comment on above: Performed By: #### P SASC #### [facility] [address] [place] [address] [address] Nabil Che Hemoglobin (Bld) [Mass/Vol] 17.8 g/dL Normal 14.0-18.0 [facility] Comment on above: Performed By: #### P SASC #### [facility] [address] [place] [address] [address] Nabil Che IG # 0.07 10e3/ul Critically high 0.00-0.03 [facility] Comment on above: Performed By: #### P SASC #### [facility] [address] [place] [address] [address] Nabil Che IG % 0.7 % Critically high 0.0-0.5 [facility] Comment on above: Performed By: #### P SASC #### [facility] [address] [place] [address] [address] Nabil Che LYMPH # 2.1 103/ul Normal 1.2-3.8 [facility] Comment on above: Performed By: #### P SASC #### [facility] [address] [place] [address] [address] Nabil Che Lymphocytes/100 WBC (Bld) 21.2 % Normal 20.5-60.0 [facility] Comment on above: Performed By: #### P SASC #### [facility] [address] [place] [address] [address] Nabil Che MANUAL DIFF REQ NO Normal [facility] Comment on above: Performed By: #### P SASC #### [facility] [address] [place] [address] [address] Nabil Che MCH (RBC) [Entitic mass] 31.5 pg Normal 25.9-34.0 [facility] Comment on above: Performed By: #### P SASC #### [facility] [address] [place] [address] [address] Nabil Che MCHC (RBC) [Mass/Vol] 34.8 g/dL Normal 29.9-35.2 [facility] Comment on above: Performed By: #### P SASC #### [facility] [address] [place] [address] [address] Nabil Che MCV (RBC) [Entitic vol] 90.4 fL Normal 80.0-94.0 [facility] Comment on above: Performed By: #### P SASC #### [facility] [address] [place] [address] [address] Nabil Che MONO # 1.2 103/ul Critically high 0.3-0.8 [facility] Comment on above: Performed By: #### P SASC #### [facility] [address] [place] [address] [address] Nabil Che Monocytes/100 WBC (Bld) 12.1 % Critically high 1.7-12.0 [facility] Comment on above: Performed By: #### P SASC #### [facility] [address] [place] [address] [address] Nabil Che NEUT # 6.0 103/ul Normal 1.4-6.5 [facility] Comment on above: Performed By: #### P SASC #### [facility] [address] [place] [address] [address] Nabil Che Neutrophils/100 WBC (Bld) 61.8 % Normal 43.0-75.0 [facility] Comment on above: Performed By: #### P SASC #### [facility] [address] [place] [address] [address] Nabil Che Platelet mean volume (Bld) [Entitic vol] 10.3 fL Normal 9.5-13.5 [facility] Comment on above: Performed By: #### P SASC #### [facility] [address] [place] [address] [address] Nabil Che PLT 203 103/ul Normal 150-450 [facility] Comment on above: Performed By: #### P SASC #### [facility] [address] [place] [address] [address] Nabil Che RBC 5.65 106/ul Normal 4.70-6.10 [facility] Comment on above: Performed By: #### P SASC #### [facility] [address] [place] [address] [address] Nabil Che WBC 9.8 103/ul Normal 4.0-11.0 [facility] Comment on above: Performed By: #### P SASC #### [facility] [address] [place] [address] [address] Nbail Che LIPID PROFILEon 09-04-2022 CHOL-HDL RATIO NORM SEE BELOW Normal [facility] Comment on above: Result Comment: 3.3 - 4.4 LOW RISK 4.4 - 7.1 AVERAGE RISK 7.1 - 11.0 MODERATE RISK >11.0 HIGH RISK Performed By: #### L IPID, CMP #### [facility] [address] [place] [address] [address] Nabil Che Cholesterol [Mass/Vol] 231 mg/dL Critically high <=200 [facility] Comment on above: Performed By: #### L IPID, CMP #### [facility] [address] [place] [address] [address] Nabil Che Cholesterol in HDL [Mass/Vol] 37 mg/dL Critically low 40-60 [facility] Comment on above: Performed By: #### L IPID, CMP #### [facility] [address] [place] [address] [address] Nabil Che Cholesterol in LDL [Mass/Vol] 137.0 mg/dL Normal [facility] Comment on above: Performed By: #### L IPID, CMP #### [facility] [address] [place] [address] [address] Nabil Che Cholesterol.total/Ch olesterol in HDL [Mass ratio] 6.2 {ratio} Normal [facility] Comment on above: Performed By: #### L IPID, CMP #### [facility] [address] [place] [address] [address] Nabil Che HDL NORMAL > or = 60 mg/dl - LOW CARDIOVASCULAR RISK <40 mg/dl - HIGH CARDIOVASCULAR RISK Normal [facility] Comment on above: Performed By: #### L IPID, CMP #### [facility] [address] [place] [address] Dr. Nabil Che LDL CALC NORMAL SEE BELOW Normal [facility] Comment on above: Result Comment: <100 mg/dl OPTIMAL 100 - 129 mg/dl NEAR OR ABOVE OPTIMAL 130 - 159 mg/dl BORDERLINE HIGH 160 - 189 mg/dl HIGH >190 mg/dl VERY HIGH Performed By: #### L IPID, CMP #### [facility] [address] [place] [address] Dr. Nabil Che Triglyceride [Mass/Vol] 285 mg/dL Critically high <=150 [facility] Comment on above: Performed By: #### L IPID, CMP #### [facility] [address] [place] [address] Dr. Nabil Che VLDL CALC 57.0 mg/dL Normal [facility] Comment on above: Performed By: #### L IPID, CMP #### [facility] [address] [place] [address] Dr. Nabil Che PROF 14(COMP METB)on 023 Albumin [Mass/Vol] 3.7 g/dL Normal 3.4-5.0 [facility] Comment on above: Performed By: #### L IPID, CMP #### [facility] [address] [place] [address] Dr. Nabil Che Albumin/Globulin [Mass ratio] 0.8 {ratio} Normal [facility] Comment on above: Performed By: #### L IPID, CMP #### [facility] [address] [place] [address] Dr. Nabil Che ALP [Catalytic activity/Vol] 96 U/L Normal 46-116 [facility] Comment on above: Performed By: #### L IPID, CMP #### [facility] [address] [place] [address] Dr. Nabil Che ALT [Catalytic activity/Vol] 42 U/L Normal 16-63 [facility] Comment on above: Performed By: #### L IPID, CMP #### [facility] [address] [place] [address] Dr. Nabil Che Anion gap [Moles/Vol] 11.9 mmol/L Normal [facility] Comment on above: Performed By: #### L IPID, CMP #### [facility] [address] [place] [address] Dr. Nabil Che AST [Catalytic activity/Vol] 23 U/L Normal 15-37 [facility] Comment on above: Performed By: #### L IPID, CMP #### [facility] [address] [place] [address] [address] Nabil Che Bilirubin [Mass/Vol] 0.5 mg/dL Normal 0.2-1.0 [facility] Comment on above: Performed By: #### L IPID, CMP #### [facility] [address] [place] [address] Dr. Nabil Che Calcium [Mass/Vol] 9.1 mg/dL Normal 8.5-10.1 [facility] Comment on above: Performed By: #### L IPID, CMP #### [facility] [address] [place] [address] Dr. Nabil Che Chloride [Moles/Vol] 104 mmol/L Normal 98-107 [facility] Comment on above: Performed By: #### L IPID, CMP #### [facility] [address] [place] [address] Dr. Nabil Che CO2 [Moles/Vol] 29.7 mmol/L Normal 21.0-32.0 [facility] Comment on above: Performed By: #### L IPID, CMP #### [facility] [address] [place] [address] Dr. Nabil Che Creatinine [Mass/Vol] 1.07 mg/dL Normal 0.70-1.30 [facility] Comment on above: Performed By: #### L IPID, CMP #### [facility] [address] [place] [address] Dr. Nabil Che EGFR-AF ESTONIAN >60 Normal >=60 [facility] Comment on above: Performed By: #### L IPID, CMP #### [facility] [address] [place] [address] Dr. Nabil Che EGFR-NON AF ESTONIAN >60 Normal >=60 [facility] Comment on above: Performed By: #### L IPID, CMP #### [facility] [address] [place] [address] Dr. Nabil Che Globulin (S) [Mass/Vol] 4.8 g/dL Normal [facility] Comment on above: Performed By: #### L IPID, CMP #### [facility] [address] [place] [address] Dr. Nabil Che Glucose [Mass/Vol] 106 mg/dL Normal 74-106 [facility] Comment on above: Performed By: #### L IPID, CMP #### [facility] [address] [place] [address] Dr. Nabil Che Potassium [Moles/Vol] 4.6 mmol/L Normal 3.5-5.1 [facility] Comment on above: Performed By: #### L IPID, CMP #### [facility] [address] [place] [address] Dr. Nabil Che Protein [Mass/Vol] 8.5 g/dL Critically high 6.4-8.2 [facility] Comment on above: Performed By: #### L IPID, CMP #### [facility] [address] [place] [address] Dr. Nabil Che Sodium [Moles/Vol] 141 mmol/L Normal 136-145 [facility] Comment on above: Performed By: #### L IPID, CMP #### [facility] [address] [place] [address] Dr. Nabil Che Urea nitrogen [Mass/Vol] 13.0 mg/dL Normal 7.0-18.0 [facility] Comment on above: Performed By: #### L IPID, CMP #### [facility] [address] [place] [address] Dr. Nabil Che Urea nitrogen/Creatinine [Mass ratio] 12.1 mg/mg Normal [facility] Comment on above: Performed By: #### L IPID, CMP #### [facility] [address] [place] [address] Dr. Nabil Che PROTIMEon 09-04-2022 INR Coag (PPP) [Relative time] 3.32 {INR} Normal [facility] Comment on above: Performed By: #### P T #### [facility] [address] [place] [address] Dr. Nabil Che INR GUIDELINES SEE BELOW Normal [facility] Comment on above: Result Comment: LETY RED INR: 2.0 - 3.0 CONDITIONS NOT LISTED BELOW 2.5 - 3.5 FOR PROSTHETIC HEART VALVE REPLACEMENT 2.5 - 3.5 RECURRENT THROMBOSIS Performed By: #### P T #### [facility] [address] [place] [address] Dr. Nabil Che PT Coag (PPP) [Time] 32.9 s Critically high 9.0-11.6 [facility] Comment on above: Performed By: #### P T #### [facility] [address] [place] [address] Dr. Nabil Che Lab [facility] 07-30-2022 Lab Reports [id number] A8#1.00CD:127 Normal [facility] PROTIMEon 07-27-2022 INR Coag (PPP) [Relative time] 2.82 {INR} Normal [facility] Comment on above: Performed By: #### P T #### [facility] [address] [place] [address] Dr. Nabil Che INR GUIDELINES SEE BELOW Normal [facility] Comment on above: Result Comment: LETY RED INR: 2.0 - 3.0 CONDITIONS NOT LISTED BELOW 2.5 - 3.5 FOR PROSTHETIC HEART VALVE REPLACEMENT 2.5 - 3.5 RECURRENT THROMBOSIS Performed By: #### P T #### [facility] [address] [place] [address] Dr. Nabil Che PT Coag (PPP) [Time] 28.2 s Critically high 9.0-11.6 [facility] Comment on above: Performed By: #### P T #### [facility] [address] [place] [address] Dr. Nabil Che CBC AUTO DIFFon 06-07-2022 BASO # 0.1 103/ul Normal 0.0-0.1 [facility] Comment on above: Performed By: #### P SASC #### [facility] [address] [place] [address] Dr. Nabil Che Basophils/100 WBC (Bld) 1.1 % Normal 0.2-2.0 [facility] Comment on above: Performed By: #### P SASC #### [facility] [address] [place] [address] Dr. Nabil Che EO # 0.4 103/ul Normal 0.0-0.7 [facility] Comment on above: Performed By: #### P SASC #### [facility] [address] [place] [address] Dr. Nabil Che Eosinophils/100 WBC (Bld) 3.7 % Normal 0.9-7.0 [facility] Comment on above: Performed By: #### P SASC #### [facility] [address] [place] [address] Dr. Nabil Che Erythrocyte distribution width (RBC) [Ratio] 13.2 % Normal 11.0-15.0 [facility] Comment on above: Performed By: #### P SASC #### [facility] [address] [place] [address] Dr. Nabil Che Hematocrit (Bld) [Volume fraction] 49.2 % Normal 42.0-54.0 [facility] Comment on above: Performed By: #### P SASC #### [facility] [address] [place] [address] Dr. Nabil hCe Hemoglobin (Bld) [Mass/Vol] 17.3 g/dL Normal 14.0-18.0 [facility] Comment on above: Performed By: #### P SASC #### [facility] [address] [place] [address] Dr. Nabil Che IG # 0.04 10e3/ul Critically high 0.00-0.03 [facility] Comment on above: Performed By: #### P SASC #### [facility] [address] [place] [address] Dr. Nabil Che IG % 0.4 % Normal 0.0-0.5 [facility] Comment on above: Performed By: #### P SASC #### [facility] [address] [place] [address] Dr. Nabil Che LYMPH # 2.5 103/ul Normal 1.2-3.8 [facility] Comment on above: Performed By: #### P SASC #### [facility] [address] [place] [address] Dr. Nabil Che Lymphocytes/100 WBC (Bld) 26.3 % Normal 20.5-60.0 [facility] Comment on above: Performed By: #### P SASC #### [facility] [address] [address] [address] Nabil Che MANUAL DIFF REQ NO Normal [facility] Comment on above: Performed By: #### P SASC #### [facility] [address] [place] [address] Dr. Nabil Che MCH (RBC) [Entitic mass] 31.2 pg Normal 25.9-34.0 [facility] Comment on above: Performed By: #### P SASC #### [facility] [address] [place] [address] Dr. Nabil Che MCHC (RBC) [Mass/Vol] 35.2 g/dL Normal 29.9-35.2 [facility] Comment on above: Performed By: #### P SASC #### [facility] [address] [place] [address] Dr. Nabil Che MCV (RBC) [Entitic vol] 88.6 fL Normal 80.0-94.0 [facility] Comment on above: Performed By: #### P SASC #### [facility] [address] [place] [address] Dr. Nabil Che MONO # 1.3 103/ul Critically high 0.3-0.8 [facility] Comment on above: Performed By: #### P SASC #### [facility] [address] [place] [address] Dr. Nabil Che Monocytes/100 WBC (Bld) 13.3 % Critically high 1.7-12.0 [facility] Comment on above: Performed By: #### P SASC #### [facility] [address] [place] [address] Dr. Nabil Che NEUT # 5.2 103/ul Normal 1.4-6.5 [facility] Comment on above: Performed By: #### P SASC #### [facility] [address] [address] [address] Nabil Che Neutrophils/100 WBC (Bld) 55.2 % Normal 43.0-75.0 [facility] Comment on above: Performed By: #### P SASC #### [facility] [address] [address] [address] Nabil Che Platelet mean volume (Bld) [Entitic vol] 10.4 fL Normal 9.5-13.5 [facility] Comment on above: Performed By: #### P SASC #### [facility] [address] [place] [address] Dr. Nabil Che PLT 199 103/ul Normal 150-450 [facility] Comment on above: Performed By: #### P SASC #### [facility] [address] [address] [address] Nabil Che RBC 5.55 106/ul Normal 4.70-6.10 [facility] Comment on above: Performed By: #### P SASC #### [facility] [address] [address] [address] Nabil Che WBC 9.4 103/ul Normal 4.0-11.0 [facility] Comment on above: Performed By: #### P SASC #### [facility] [address] [place] [address] Dr. Nabil Che Office Visit (Cardiology)on 06-07-2022 [...] Weight Tips; Status:Complete - Retrospective Authorization; Done: [id number] Some eating tips that can help you lose weight.; Status:Complete - Retrospective Authorization; Done: [id number] Paroxysmal atrial fibrillation IO EKG Electrocardiogram- 12 Lead; Status:Complete; Done: [id number] SocHx: Current every day smoker You need to stop smoking. Though it is not easy, more than half of all adult smokers have quit. We encourage you to write down all the reasons you should quit smoking and set a quit date for yourself. Ask us how we can help. You may also call 2-032-HIHSFUNGO STUDIOSNOW for free resources and assistance.; Status:Complete - Retrospective Authorization; Done: [id number] Tobacco Use Screening; Status:Complete; Done: [id number] Patient Instructions Please bring all medicines, vitamins, [...] any palpitations since he started taking magnesium gtjt-nlt-fhvlljc. He is on Multaq and his rhythm [...] 10 MG Oral TabletTake 1 tablet daily Moriches 3 1000 MG Oral CapsuleTAKE 2 CAPSULE [...] negative for complaint. Vitals Vital Signs Recorded: [id number] 09:01AM Heart Rate52, L Radial Djoyjvsy917, LUE, Sitting Zofjpgncu30, LUE, Sitting Height5 ft 11 in Bbvrcd389 lb BMI Ziurarlvwt81.75 kg/m2 BSA Calculated2.29 Tobacco Usea) Yes Patient encouraged to stop using tobacco productsYes PHQ-2 #1. Over the last 2 weeks have you felt down, depressed or hopeless? (If yes, answer PHQ-9 below)No PHQ-2 #2. Ove (more content not included)... Normal [facility] PROF CHEM 8 (BAS METB)on Anion gap [Moles/Vol] 12.2 mmol/L Normal [facility] Comment on above: Performed By: #### P SASC #### [facility] [address] [address] [address] Nabil Che Calcium [Mass/Vol] 9.1 mg/dL Normal 8.5-10.1 [facility] Comment on above: Performed By: #### P SASC #### [facility] [address] [address] [address] Nabil Che Chloride [Moles/Vol] 103 mmol/L Normal 98-107 [facility] Comment on above: Performed By: #### P SASC #### [facility] [address] [address] [address] Nabil Che CO2 [Moles/Vol] 29.0 mmol/L Normal 21.0-32.0 [facility] Comment on above: Performed By: #### P SASC #### [facility] [address] [address] [address] Nabil Che Creatinine [Mass/Vol] 1.01 mg/dL Normal 0.70-1.30 [facility] Comment on above: Performed By: #### P SASC #### [facility] [address] [address] [address] Nabil Che EGFR-AF ESTONIAN >60 Normal >=60 [facility] Comment on above: Performed By: #### P SASC #### [facility] [address] [address] [address] Nabil Che EGFR-NON AF ESTONIAN >60 Normal >=60 [facility] Comment on above: Performed By: #### P SASC #### [facility] [address] [address] [address] Nabil Che Glucose [Mass/Vol] 113 mg/dL Critically high 74-106 [facility] Comment on above: Performed By: #### P SASC #### [facility] [address] [address] [address] Nabil Che Potassium [Moles/Vol] 4.2 mmol/L Normal 3.5-5.1 [facility] Comment on above: Performed By: #### P SASC #### [facility] [address] [address] [address] Nabil Che Sodium [Moles/Vol] 140 mmol/L Normal 136-145 [facility] Comment on above: Performed By: #### P SASC #### [facility] [address] [address] [address] Nabil Che Urea nitrogen [Mass/Vol] 9.0 mg/dL Normal 7.0-18.0 [facility] Comment on above: Performed By: #### P SASC #### [facility] [address] [address] [address] Nabil Che U[place] nitrogen/Creatinine [Mass ratio] 8.9 mg/mg Normal [facility] Comment on above: Performed By: #### P SASC #### [facility] [address] [address] [address] Nabil Che Tobacco Screening.on 023 Adult depression screening assessment No [facility] 250 DO Work Phone: Tobacco use status CPHS a) Yes [facility] -[place] 250 DO Work Phone: Tobacco Screening. Yes [facility] -[place] 250 DO Work Phone: Lab Reportson 05-27-2022 Lab Reports [id number] 92#1.00CD:127 Normal [facility] PROTIMEon 05-24-2022 INR Coag (PPP) [Relative time] 2.87 {INR} Normal [facility] Comment on above: Performed By: #### P T #### [facility] [address] [address] [address] Nabil Che INR GUIDELINES SEE BELOW Normal [facility] Comment on above: Result Comment: LETY RED INR: 2.0 - 3.0 CONDITIONS NOT LISTED BELOW 2.5 - 3.5 FOR PROSTHETIC HEART VALVE REPLACEMENT 2.5 - 3.5 RECURRENT THROMBOSIS Performed By: #### P T #### [facility] [address] [place] [address] Dr. Nabil Che PT Coag (PPP) [Time] 28.7 s Critically high 9.0-11.6 [facility] Comment on above: Performed By: #### P T #### [facility] [address] [place] [address] Dr. Nabil Che Lab Report[facility] 04-29-2022 Lab Reports [id number] F3#1.00CD:127 Normal [facility] PROTIMEon 04-27-2022 INR Coag (PPP) [Relative time] 2.17 {INR} Normal [facility] Comment on above: Performed By: #### P SASC #### [facility] [address] [place] [address] Dr. Nabil Che INR GUIDELINES SEE BELOW Normal [facility] Comment on above: Result Comment: LETY RED INR: 2.0 - 3.0 CONDITIONS NOT LISTED BELOW 2.5 - 3.5 FOR PROSTHETIC HEART VALVE REPLACEMENT 2.5 - 3.5 RECURRENT THROMBOSIS Performed By: #### P SASC #### [facility] [address] [place] [address] Dr. Nabil Che PT Coag (PPP) [Time] 22.3 s Critically high 9.0-11.6 [facility] Comment on above: Performed By: #### P SASC #### [facility] [address] [place] [address] Dr. Nabil Che Lab Report[facility] 04-10-2022 Lab Reports [id number] DD#1.00CD:127 Normal [facility] PROTIMEon 04-07-2022 INR Coag (PPP) [Relative time] 1.09 {INR} Normal [facility] Comment on above: Performed By: #### P T #### [facility] [address] [place] [address] Dr. Nabil Che INR GUIDELINES SEE BELOW Normal [facility] Comment on above: Result Comment: LETY RED INR: 2.0 - 3.0 CONDITIONS NOT LISTED BELOW 2.5 - 3.5 FOR PROSTHETIC HEART VALVE REPLACEMENT 2.5 - 3.5 RECURRENT THROMBOSIS Performed By: #### P T #### [facility] [address] [address] [address] Nabil Che PT Coag (PPP) [Time] 11.7 s Critically high 9.0-11.6 [facility] Comment on above: Performed By: #### P T #### [facility] [address] [place] [address] Dr. Nabil Che Lab Report[facility] 03-28-2022 Lab Reports [id number] 1F#1.00CD:127 Normal [facility] PROTIMEon 03-27-2022 INR Coag (PPP) [Relative time] 1.11 {INR} Normal [facility] Comment on above: Performed By: #### P SASC #### [facility] [address] [place] [address] Dr. Nabil Che INR GUIDELINES SEE BELOW Normal [facility] Comment on above: Result Comment: LETY RED INR: 2.0 - 3.0 CONDITIONS NOT LISTED BELOW 2.5 - 3.5 FOR PROSTHETIC HEART VALVE REPLACEMENT 2.5 - 3.5 RECURRENT THROMBOSIS Performed By: #### P SASC #### [facility] [address] [place] [address] Dr. Nabil Che PT Coag (PPP) [Time] 11.9 s Critically high 9.0-11.6 [facility] Comment on above: Performed By: #### P SASC #### [facility] [address] [place] [address] Dr. Nabil Che Lab [facility] 02-23-2022 Lab Reports [id number] 7C#1.00CD:127 Normal [facility] PROTIMEon 02-22-2022 INR Coag (PPP) [Relative time] 1.84 {INR} Normal [facility] Comment on above: Performed By: #### P T #### [facility] [address] [place] [address] Dr. Nabil Che INR GUIDELINES SEE BELOW Normal [facility] Comment on above: Result Comment: LETY RED INR: 2.0 - 3.0 CONDITIONS NOT LISTED BELOW 2.5 - 3.5 FOR PROSTHETIC HEART VALVE REPLACEMENT 2.5 - 3.5 RECURRENT THROMBOSIS Performed By: #### P T #### [facility] [address] [place] [address] Dr. Nabil Che PT Coag (PPP) [Time] 19.1 s Critically high 9.0-11.6 [facility] Comment on above: Performed By: #### P T #### [facility] [address] [place] [address] Dr. Nabil Che Lab [facility] 01-26-2022 Lab Reports [id number] E8#1.00CD:127 Normal [facility] PROTIMEon 01-25-2022 INR Coag (PPP) [Relative time] 1.91 {INR} Normal [facility] Comment on above: Performed By: #### P SASC #### [facility] [address] [place] [address] Dr. Nabil Che INR GUIDELINES SEE BELOW Normal [facility] Comment on above: Result Comment: LETY RED INR: 2.0 - 3.0 CONDITIONS NOT LISTED BELOW 2.5 - 3.5 FOR PROSTHETIC HEART VALVE REPLACEMENT 2.5 - 3.5 RECURRENT THROMBOSIS Performed By: #### P SASC #### [facility] [address] [place] [address] Dr. Nabil Che PT Coag (PPP) [Time] 19.8 s Critically high 9.0-11.6 [facility] Comment on above: Performed By: #### P SASC #### [facility] [address] [place] [address] Dr. Nabil Che Consultation Noteon 12-07-19 Consultation Note [id number] 8#1.00CD:127 Normal [facility] Tobacco Screening.on 022 Adult depression screening assessment No -[facility] [facility] 250 DO Work Phone: Tobacco use status CPHS a) Yes [facility] [facility] 250 DO Work Phone: Tobacco Screening. Yes [facility] [facility] 250 DO Work Phone: Lab Report[facility] 11-22-2021 Lab Reports [id number] 73#1.00CD:127 Normal [facility] CBC AUTO DIFFon 11-21-2021 BASO # 0.1 103/ul Normal 0.0-0.1 [facility] Comment on above: Performed By: #### C BC #### [facility] [address] [place] [address] Dr. Nabil Che Basophils/100 WBC (Bld) 0.8 % Normal 0.2-2.0 [facility] Comment on above: Performed By: #### C BC #### [facility] [address] [place] [address] Dr. Nabil hCe EO # 0.3 103/ul Normal 0.0-0.7 [facility] Comment on above: Performed By: #### C BC #### [facility] [address] [place] [address] Dr. Nabil Che Eosinophils/100 WBC (Bld) 3.2 % Normal 0.9-7.0 [facility] Comment on above: Performed By: #### C BC #### [facility] [address] [place] [address] Dr. Nabil Che Erythrocyte distribution width (RBC) [Ratio] 13.1 % Normal 11.0-15.0 [facility] Comment on above: Performed By: #### C BC #### [facility] [address] [place] [address] Dr. Nabil Che Hematocrit (Bld) [Volume fraction] 46.8 % Normal 42.0-54.0 [facility] Comment on above: Performed By: #### C BC #### [facility] [address] [place] [address] Dr. Nabil Che Hemoglobin (Bld) [Mass/Vol] 16.4 g/dL Normal 14.0-18.0 [facility] Comment on above: Performed By: #### C BC #### [facility] [address] [place] [address] Dr. Nabil Che IG # 0.04 10e3/ul Critically high 0.00-0.03 [facility] Comment on above: Performed By: #### C BC #### [facility] [address] [place] [address] Dr. Nabil Che IG % 0.4 % Normal 0.0-0.5 [facility] Comment on above: Performed By: #### C BC #### [facility] [address] [place] [address] Dr. Nabil Che LYMPH # 2.8 103/ul Normal 1.2-3.8 [facility] Comment on above: Performed By: #### C BC #### [facility] [address] [place] [address] Dr. Nabil Che Lymphocytes/100 WBC (Bld) 29.6 % Normal 20.5-60.0 [facility] Comment on above: Performed By: #### C BC #### [facility] [address] [place] [address] Dr. Nabil Che MANUAL DIFF REQ NO Normal [facility] Comment on above: Performed By: #### C BC #### [facility] Laboratory [address] [place] [address] Dr. Nabil Che MCH (RBC) [Entitic mass] 31.3 pg Normal 25.9-34.0 [facility] Comment on above: Performed By: #### C BC #### [facility] Laboratory [address] [place] [address] Dr. Nabil Che MCHC (RBC) [Mass/Vol] 35.0 g/dL Normal 29.9-35.2 [facility] Comment on above: Performed By: #### C BC #### [facility] Laboratory [address] [place] [address] Dr. Nabil Che MCV (RBC) [Entitic vol] 89.3 fL Normal 80.0-94.0 [facility] Comment on above: Performed By: #### C BC #### [facility] Laboratory [address] [place] [address] Dr. Nabil Che MONO # 1.4 103/ul Critically high 0.3-0.8 [facility] Comment on above: Performed By: #### C BC #### [facility] Laboratory [address] [place] [address] Dr. Nabil Che Monocytes/100 WBC (Bld) 14.5 % Critically high 1.7-12.0 [facility] Comment on above: Performed By: #### C BC #### [facility] Laboratory [address] [place] [address] Dr. Nabil Che NEUT # 4.9 103/ul Normal 1.4-6.5 [facility] Comment on above: Performed By: #### C BC #### [facility] Laboratory [address] [place] [address] Dr. Nabil Che Neutrophils/100 WBC (Bld) 51.5 % Normal 43.0-75.0 [facility] Comment on above: Performed By: #### C BC #### [facility] Laboratory [address] [place] [address] Dr. Nabil Che Platelet mean volume (Bld) [Entitic vol] 10.6 fL Normal 9.5-13.5 [facility] Comment on above: Performed By: #### C BC #### [facility] Laboratory [address] [place] [address] Dr. Nabil Che PLT 173 103/ul Normal 150-450 [facility] Comment on above: Performed By: #### C BC #### [facility] Laboratory [address] [place] [address] Dr. Nabil Che RBC 5.24 106/ul Normal 4.70-6.10 [facility] Comment on above: Performed By: #### C BC #### [facility] Laboratory [address] [place] [address] Dr. Nabil Che WBC 9.4 103/ul Normal 4.0-11.0 [facility] Comment on above: Performed By: #### C BC #### [facility] Laboratory [address] [place] [address] Dr. Nabil Che PROF CHEM 8 (BAS METB)on Anion gap [Moles/Vol] 11.7 mmol/L Normal [facility] Comment on above: Performed By: #### B MP #### [facility] Laboratory [address] [place] [address] Dr. Nabil Che Calcium [Mass/Vol] 8.1 mg/dL Critically low 8.5-10.1 Th e [facility] Comment on above: Performed By: #### B MP #### [facility] Laboratory [address] [place] [address] Dr. Nabil Che Chloride [Moles/Vol] 103 mmol/L Normal 98-107 [facility] Comment on above: Performed By: #### B MP #### [facility] Laboratory [address] [place] [address] Dr. Nabil Che CO2 [Moles/Vol] 28.1 mmol/L Normal 21.0-32.0 [facility] Comment on above: Performed By: #### B MP #### [facility] Laboratory [address] [place] [address] Dr. Nabil Che Creatinine [Mass/Vol] 1.34 mg/dL Critically high 0.70-1.30 [facility] Comment on above: Performed By: #### B MP #### [facility] Laboratory [address] [place] [address] Dr. Nabil Che EGFR-AF ESTONIAN >60 Normal >=60 [facility] Comment on above: Performed By: #### B MP #### [facility] Laboratory [address] [place] [address] Dr. Naibl Che EGFR-NON AF ESTONIAN 54 mL/min/1.73m2 Critically low >=60 [facility] Comment on above: Performed By: #### B MP #### [facility] Laboratory [address] [address] [address] Nabil Che Glucose [Mass/Vol] 87 mg/dL Normal 74-106 [facility] Comment on above: Performed By: #### B MP #### [facility] Laboratory [address] [address] [address] Nabil Che Potassium [Moles/Vol] 4.8 mmol/L Normal 3.5-5.1 [facility] Comment on above: Performed By: #### B MP #### [facility] Laboratory [address] [address] [address] Nabil Che Sodium [Moles/Vol] 138 mmol/L Normal 136-145 [facility] Comment on above: Performed By: #### B MP #### [facility] Laboratory [address] [address] [address] Nabil Che Urea nitrogen [Mass/Vol] 14.0 mg/dL Normal 7.0-18.0 [facility] Comment on above: Performed By: #### B MP #### [facility] Laboratory [address] [address] [address] Nabil Che Urea nitrogen/Creatinine [Mass ratio] 10.4 mg/mg Normal [facility] Comment on above: Performed By: #### B MP #### [facility] Laboratory [address] [address] [address] Nabil Che PROTIMEon 11-21-2021 INR Coag (PPP) [Relative time] 2.25 {INR} Normal [facility] Comment on above: Performed By: #### P SASC #### [facility] Laboratory [address] [address] [address] Nabil Ceh INR GUIDELINES SEE BELOW Normal [facility] Comment on above: Result Comment: LETY RED INR: 2.0 - 3.0 CONDITIONS NOT LISTED BELOW 2.5 - 3.5 FOR PROSTHETIC HEART VALVE REPLACEMENT 2.5 - 3.5 RECURRENT THROMBOSIS Performed By: #### P SASC #### [facility] Laboratory [address] [address] [address] Nabil Che PT Coag (PPP) [Time] 23.0 s Critically high 9.0-11.6 [facility] Comment on above: Performed By: #### P SASC #### [facility] Laboratory [address] [address] [address] Nabil Che Lab Reportson 09-27-2021 Lab Reports [id number]#[id number]:127 Normal [facility] Lab Reports [id number]#[id number]:127 Normal [facility] Outside [facility] Correspo ndenceon 09-26-2021 Outside [facility] Correspondence [id number] CC#1.00CD:127 Normal [facility] PROTIMEon 09-26-2021 INR Coag (PPP) [Relative time] 1.70 {INR} Normal [facility] Comment on above: Performed By: #### P SASC #### [facility] Laboratory [address] [place] [address] Dr. Nabil Che INR GUIDELINES SEE BELOW Normal The [facility] Comment on above: Result Comment: LETY RED INR: 2.0 - 3.0 CONDITIONS NOT LISTED BELOW 2.5 - 3.5 FOR PROSTHETIC HEART VALVE REPLACEMENT 2.5 - 3.5 RECURRENT THROMBOSIS Performed By: #### P SASC #### [facility] Laboratory [address] [address] [address] Nabil Che PT Coag (PPP) [Time] 17.7 s Critically high 9.0-11.6 [facility] Comment on above: Performed By: #### P SASC #### [facility] Laboratory [address] [place] [address] Dr. Nabil Che Reminderson 09-26-2021 Reminders -- [...] message given and verbalized understanding. 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 CD:[id number] YUj4aWr+PGhlYWQ+PE1 YKHOlE64mzWDvlM3ZQ4 hNJD7JGOYKIYZVFQ8DW P6jpOF3SPjqB2JhpxDn XkinsRJpOY57ALz8DFQ 9eUrvWOfacC3zlCVhR6 e9NkOxTQ10mJ67RKcbB VYeCyI2BrGgvppxxZXx B1ddDuCcaKQmLzk+PHR hYmxlIHdpZHRoPScxMD MwHvHlcXzrBR1wJz7aX GVyLWNvbGxhcHNlOiBj n8heXWKrEHsuVC8giJi bD0PfbMN7BNZdp1a4Yo 48dHI+SOPlLBF6lUlzO Dtwj420KvTrc3liUVX9 rOWnOPwaVXC7D43nd4X 7PYQnMWXwCEV4iAI6zE 5deExgbranW1OgcUScM qI9ETC2kNCsuS8mxOtw tpupoU4dKsf+J37ZQC0 LUMZYGF1BMzu0Y6MrMr wvdHI+KL47WOLsUM84v AJlgXWrh7rieYs4GkHn ZURdZJH8zHtxEHifn8Y tFHLbB67nmYJzr4V5MO LbfIhirXKgXkXgfGP4n A0aTMwvesdtf9lbgxjr Ucygg4qytv15jL54I63 gYNpfUXZeCKP8RZQfWE NkdViyho0itP5oVq4+I Uyap1yqf0utjEc2XjOz PLXyjgFugOpzGZX7x9V cPz87B4KsoGnwx6BoBh l0se64sEFzq1O2nSD9S DbqSUUddP9jRBpcHpH6 RZYiHkJslF22rDUhCNm vHt2pxFkqmUaiEE4wEN GfvzitCDZubP2fKOYpg PUakQkpQU2sFGGxlfgr s245OvDdSBF1APJkjWJ nC4NanY8uLtPrPCKxDN UsG4OukDXcBFitZ553Z JjiBuF4CVDaadMeB0Cs JGArhFtxMaX7v7O2Th4 At7SxqdwjRCS1JQsvKC N3PdPuEcDhTtK4K1WxU eb5XBBmwVlcMF6dU4Lp WRXleeodjwxzwFG0DPA sFWHmrX55zJCkRYyeWc 4pi5D8c582VSQnPDPvb V35Cw7mwRwoNZFmcFKP lY1oqtizr8obkebuUqT sZCCeLUs2NBm4EBEdwH zeOsHdXYB8NyC6NHY0z DYfvM8amKcpsarqhA1x Oyc+O13yiN9bYUI1YWO 6erhlFOMfodRiIX15DU 51W7NuHfxrjYZtsCN+P XJzthUeiNqbGA9aAqVt n8yui4AzEXlbL3LcAMJ mBNkkZpk9IBUqGVX8uM S9yN4hUIXhIPebr6B1v KT8N9RnptWpqh7mg5nr FWFvLGinS47gbSHto9G 3DDCxnRL0GCJjlOzoBo RnoX71Ctf+PGNvbGdyb 7DfInkzm0his6nyqAr3 IjMwJSIgdmFsaWduPSJ 3e8EbVc50Q69uTIhpPY RoPSIxNSUiIHZhbGlnb s0doE5kCv5+PGNvbCB3 nXL8lY2nMKTbKyN8HFc zR359TvXnoCTmGyooc6 joh9vbgUk0GwEdNHNve yTxoCddGYJ5l6YeWe06 T42dXYpnGGKxVLEcFRI oFVIopWyvjk9ubM7gAw 8+TW8nq2yazw44wN11k HI+UAFiWNQ9lZqsSLmk WUMnvN4tTKulQwL5JKZ gDwZydL83jJWnLQmiBf 0eoTtozJawFA6xTFTkp erid156LcMhu5chIFMe aWCuMKwcRYV6D13he1Q 9CPTeBPNrIFO2zHR6fO 1hbGlnbjogbGVmdDsgd vBsxUftMXukQVjcT593 IHRvcDsnPlBhdGllbnQ qMxDqXTn5G6WqUwm5JW PdiQglTN1kqHRdXNvfB c0ypOcwdWezDB7pVKVg uvjqm079WnMtv5ohFUJ jrMXdBQqjZBP2M93gf1 O1EJJrDIMzTCS7sLD2n F4uaTcmzzjtxSHwzPnz okPpnMghGIyhHKbhV30 6IHRvcDsnPkJpcnRoIE TlyOP7YU12XV63rASmu 2T7iSY8J2BvLRBxnmte ihwhdQI9RRBqLEMpgD5 8Sy4kkFcoYk0cBUXfGG F8YGFtzUVfN9ToaG0pU mZnEUOeFHSdW8PlaCJu DSzyD129ROpxJsV2ZJI rvpHaZ6AfLBQogOkdGg K3f5P0Dh3UQ0A8ZE85Q F15yNQrd3U6tTB1A8Pa ALEgobwxatmsjOW6XBN sEGXhaH52Qg9evJdaKk 4lJWZbTXP6OPIvoAXvF 9KfqM9rJyZqROHqXLPu H7WadBHoZJlfE906SVo lBiA9JJJvfhGnA4YsAJ AjcAhoWrY7m0Y6Uw0JH Hz5CA74YH98fPMem3J9 sDE0Z1AtJDBwlhpnpdz wyGQ6YVYlTSGpnI31Rk 5giZgjZr8lVARvCTJ1B CTlzFZjU9AhbH2cRxFu XEUzHXLaX5MesWHlBPw iO960FOkcOpK8UXRpgq AeD8AiBBSmzEzqXmO1u 8X3Oe6KIAYcNH33LCT2 xCV0UQ73QC47W6VnHnv vdGFibGU+PHRhYmxlIH dpZHRoPScxMDAlJyBzd TqnFL9kOf2bMQIbWVNe hYoalWNuGxEtn5dpYPG rKChtLU0mgPwvH6DjcU L0FIXgb9u6Zb10O55bS 3JvdXA+WWOjtXV3pZM5 jH3uGfAzPvC5HCjmF77 7BuNchLTpCjnux1xdg9 yhfJw3PmG1KIUabwGtd FlfCNL3m1MaZx91D40a IHdpZHRoPSIxNSUiIHZ cpTfwbd7qcP0xIh4+PG SmzOB2bXF8iR7fPgVaO nJ5RRxcD094WpLpcZWi Nwatc8svl0pdqSu2BiD uQGMpwgKhgXiiLFB5n9 LrVl44Q9TjoAvam4PuP hn6jc97zYSom0U0uSE5 I3DnHOKhbgezuHSdaFe tHL7pNLBxsyauIMFvbZ 6xALWjQ9z5TiKbSrN3I FoxP7NkiiO4IMYnjJPm KSrzJCC5D25rh3F6ABN dMMYlTXM7cFQ4nF4phY lnbjogbGVmdDsgdmVyd WqvDVslXPrrV756RDRw qIeeWLEixI4gHFCsoDM pzDsrAK3oYKBbxbzhMj pNKuGJPIRTYDXOINL6E 8VwKnr6MOGdvDmwEB0e tHYvYCmhMd0ttMpgrQh sRY3iEENervvpPFZonO 5sIXGczDVtiSnrAR8cD XBgkzkev886TtYiJXL2 VLLsmTLrV8EdxQ1jUoN zICRqZHStP0DnjHWbBX hqJ250NUaxIgX3ZPEph pIjT9FlXEKtoWtlTaB8 u5J1Wz4zTh6aEV3uWDS fXW55OP48jPPyp3F1tH Y5V9QsKYXgkbubahcia YQ5QLGvVZCxlY41qCNc QKiwJh7vm2F3x778BFJ dHJVvfI98Nn9dcWpcTD HzjIYGbX3gypcla6oaw exuUoUyRSIyYKs2FGa2 UHKvmBcvLjSoUHD3PgR 1TSO9pAKoyK1esWvlgg gxpT2fBvc+NjAgWWVhc vT6G6CjChe1TWGgxYqs QU5hmPJdGPvvQr0frJf dmSyaRU1cBHIoxzicJL XnrT5xNLVoqHTddCjlJ J0mMMKdckgri113JdEn XZF0JSJxsWIsA5YtfS5 pAkNrNSVxFLNoP2YgeE QwBJxlG271JVmnVzJ0I VRkoqKzA7ZaUEDnyZtf ZbS7g8Q0Ua7RFYvkPN2 2HC66hAVgb2W4fDF8R7 FiPKWjdoxlrrcigYK1G LIuQYAyiV71hRDpFNqc Ob2dx9U1n882YXUrRWF ffS46Is4eoJzuHMUcqJ SHuP0mlxpxa4haelfcQ xXoJIOgVHc4HYz8HQOu lDibPlTbGVR5LpX6MGE 2vVZwgH8yyRgqeyjluY 9wOyc+Q7M6xUO6wGPpi DwvdGQ+CJ53hl04A5Zi ZappFqc5TNNaCIQ4gCK 6fS0xYFYbQJunp1B7gY D7H9OnbaVckm1os8tvA TEeOWdiL19msYGbw3F3 YTYvbUU1FIPcuMssTeH ysA18Bgc+PGNvbGdyb3 NuLadqx2dij5uzxZr7H jMwJSIgdmFsaWduPSJ0 p9NkZy02M25kPZcuSEN oPSIzMCUiIHZhbGlnbj 3tkO0kHw2+WUPiwFK9j PV9lQ1rCdFtEkH3OLsy V055JiHmtAZxQifkw7j lt7keeJw3SvExXATqdi MzbBbgGBR4q9ImTv00Z 9ZtwZkub4HnJfl9gf69 yBEgg0F1eVO1P8VyWDU nrqhbvCWqyUvyUG8yHE TawfcvSHZldV6lYOAjM 8n9NsLtHnJ0OFnnH5Iz frA6INRxkEMuYVMygTM IlI7xiraqm0xpkbcgJi OqWXVeDAj1KGn1AYGew ZcvEwOoZNE8GdO4AZG9 eVWmgG8svNfwolycrG7 wOyc+UVt4f7mhsWMmMK 9skRX0OC17FV17wOMny 2O9oMY6U9MpDFQgkyby gdtrlFH5CENeMEKakC9 0Kr3zqNphXy1kMXHtQA U9EUPwlSDcP0WjoF8gR wIkDAUyKOMaI9LmwDDq SOyhV394GOxmYmB8RLG srzXhK4IkJHUumHtrBz T3b7N3Rb0DPA61SE47P E01sUYut3C0dRH9R0Cs DVMaqkvbhadyuBU8QJE lCQKqfC25Hk7nyOhgSj 4nCISoJPI1UTPntGBpA 3VkdZ2hTvRuFLNyHDEd P2EpzNDzGTymR379JWh yBlH5GXIrntBcQ8VsZB ZfdQmkCwT4j0V0Nu5MN r27ZB92LH44xBUbw9E8 mFR7U4AgANZclnbgqwz vwAM5VDRfYROvmR62Ad 6xzTiiNf4jWXMmYHV1X JXvcKQaK5IttZ4sRxWl EKTbUCDhA0IrpIQpTVi dD545RQqyPuY8EPQdov WvG2ReZFFijYfsXcC3e 4K7Hm2KBGygtzs0V2Iw PjwvdHI+LJ26SZYqKD0 5xGPsfUNez6hbdZc8Ic AzNGAiOLF7vVleQHfed 4QnYHXmC85tdMHpd3J8 IGNv (more content not included)... Normal [facility] MRI Brain w/ + w/o Contrasto [...] MultiHance Contrast amount in ml's: 20 Normal [facility] Consent for Treatmenton 08-22 Consent for Treatment [id number] BD#1.00CD:127 Normal [facility] RAD - MRI Screening Formon 0 09-16-2021 RAD - MRI Screening Form [id number] 07#1.00CD:127 Normal [facility] Ambulatory Visit Summaryon 0 09-09-2021 Ambulatory [...] Appointments Follow Up with Jeancarlos GUDINO DO, MARTÍNEZ When: In 1 year Where: [address] [facility] [address] [place] [id number] You Need to Complete the Following MRI Brain w/o Contrast, 09/09/21, Routine, Order for Future Visit, Transport Mode: Ambulatory, Reason: Headache, No, No, Dizziness Normal Trigeminal neuralgia, Need IAC evaluation, pp_set_radiology_ subspecialty, [facility]\.br\ Medications\.br\ What How Much When Instructions\.br\ Unchanged [...] of prostate\.br\ Trigeminal neuralgia\.br\ Vasovagal attack\.br\ \.br\ [facility] Family Medicine Office/Clini c Noteon 09-09-2021 Family Medicine [...] he has his labs drawn monthly at [facility], but no results are documented or filed in the chart. Also takes Aciphex 20mg once daily. States this is still working well for him. Labs completed at [facility] on 09/05/21. States he has had a colonoscopy within the past [address] Estes ([facility]). History of Present Illness [...] spasm, # 30 tab(s), Refills(s) 0, Pharmacy: [facility]/pharmacy #[id number], 180.3, cm, 05/20/20 15:18:00 EST, Height/Length Dosing, 108.4, kg, 05/20/20 15:18:00 EST, Weight Dosing Follow-up With When Contact Information Jeancarlos GUDINO DO, MARTÍNEZ In 1 year [address] [place] [id number]- Additional Instructions: Problem List/Past Medical History Ongoing [...] influenza virus vaccine, inactivated 02/12/2013 Recorded Normal [facility] Comment on above: Result Comment: Elec tronically Signed By: Jeancarlos GUDINO DO\.br\Date and Time Signed: 09/09/21 10:19 EDT Lab Reportson 08-31-2021 Lab Reports [id number] F4#1.00CD:127 Normal [facility] Tobacco Screening.on 022 Tobacco use status CPHS a) Yes [facility] y 250 DO Work Phone: Tobacco Screening. Yes [facility] DO Work Phone: CBCon 02-11-2019 Erythrocyte distribution width (RBC) [Ratio] 12.9 % Normal 11.5 - 14.5 [facility] Comment on above: Performed By: #### C BC #### [address] [address] Hematocrit (Bld) [Volume fraction] 48.1 % Normal 41.0 - 52.0 [facility] Comment on above: Performed By: #### C BC #### [address] [address] Hemoglobin (Bld) [Mass/Vol] 16.7 g/dL Normal 13.5 - 17.5 [facility] Comment on above: Performed By: #### C BC #### [address] [address] MCHC (RBC) [Mass/Vol] 34.7 g/dL Normal 32.0 - 36.0 [facility] Comment on above: Performed By: #### C BC #### [address] [address] MCV (RBC) [Entitic vol] 91 fL Normal 80 - 100 [facility] Comment on above: Performed By: #### C BC #### [address] [address] Platelets (Bld) [#/Vol] 182 10*3/uL Normal 150 - 450 [facility] Comment on above: Performed By: #### C BC #### [address] [address] RBC (Bld) [#/Vol] 5.26 x10E12/L Normal 4.50 - 5.90 [facility] Comment on above: Performed By: #### C BC #### [address] [address] WBC (Bld) [#/Vol] 9.3 10*3/uL Normal 4.4 - 11.3 [facility] Comment on above: Performed By: #### C BC #### [address] [address] CREATININEon 02-11-2019 Creatinine [Mass/Vol] 0.87 mg/dL Normal 0.50 - 1.30 [facility] Comment on above: Performed By: #### C REAT #### [address] [address] Creatinine [Mass/Vol] mg/dL Normal >60 [facility] Comment on above: Result Comment: CALC ULATIONS OF ESTIMATED GFR ARE PERFORMED USING THE MDRD STUDY EQUATION FOR THE IDMS-TRACEABLE CREATININE METHODS. CLIN CHEM 2007;53:766-72 Performed By: #### C REAT #### [address] [address] ELECTROLYTE PANELon 02-12-20 19 Anion gap [Moles/Vol] 12 mmol/L Normal 10 - 20 [facility] Comment on above: Performed By: #### E LECT #### [address] [address] Chloride [Moles/Vol] 105 mmol/L Normal 98 - 107 [facility] Comment on above: Performed By: #### E LECT #### [address] [address] HCO3 (Bld) [Moles/Vol] 28 mmol/L Normal 21 - 32 [facility] Comment on above: Performed By: #### E LECT #### [address] [address] Potassium [Moles/Vol] 4.1 mmol/L Normal 3.5 - 5.3 [facility] Comment on above: Performed By: #### E LECT #### [address] [address] Sodium [Moles/Vol] 141 mmol/L Normal 136 - 145 [facility] Comment on above: Performed By: #### E LECT #### [address] [address] UREA NITROGENon 02-11-2019 Urea nitrogen [Mass/Vol] 12 mg/dL Normal 6 - 23 [facility] Comment on above: Performed By: #### U BELÉN #### [address] [address] ALT (SGPT)on 12-26-2017 ALT enzyme act/vol 18 U/L Normal 10-52 [facility] Comment on above: Performed By: #### 1 [id number] ####[address] [place] [address] AST (SGOT)on 12-26-2017 AST enzyme act/vol 20 U/L Normal 13-39 [facility] Comment on above: Performed By: #### 1 [id number] ####[address] [address] CBCon 12-26-2017 Erythrocyte distribution width Auto Ratio (RBC) 13.4 % Normal 12.0-15.4 [facility] Comment on above: Performed By: #### 2 [id number] ####[address] [address] Hematocrit Auto Volume Fraction (Bld) 48.6 % Normal 38.4-54.9 [facility] Comment on above: Performed By: #### 2 [id number] ####[address] [address] Hemoglobin mass conc (Bld) 16.3 g/dL Normal 12.8-17.7 [facility] Comment on above: Performed By: #### 2 [id number] ####[address] [address] MCH Auto Entitic mass (RBC) 31.0 pg Normal 27.5-32.9 [facility] Comment on above: Performed By: #### 2 [id number] ####[facility] [address] [place] [address] MCHC Auto mass conc (RBC) 33.5 g/dL Normal 30.5-35.4 [facility] Comment on above: Performed By: #### 2 [id number] ####[address] [place] [address] MCV Auto Entitic volume (RBC) 92.6 fL Normal 83.3-98.2 [facility] Comment on above: Performed By: #### 2 [id number] ####[facility] [address] [place] [address] NRBC Absolute 0.00 10*3/uL Normal [facility] Comment on above: Performed By: #### 2 [id number] ####[facility] [address] [place] [address] NRBC Automated 0.0 /100{WBCs} Normal [facility] Comment on above: Performed By: #### 2 [id number] ####[facility] [address] [place] [address] Platelet mean volume Auto Entitic volume (Bld) 12.0 fL Normal 9.9-12.1 [facility] Comment on above: Performed By: #### 2 508015 ####[facility] [address] [place] [address] Platelets Auto #/vol (Bld) 156 10*3/uL Normal 155-404 [facility] Comment on above: Performed By: #### 2 [id number] ####[address] [address] RBC Auto #/vol (Bld) 5.25 10*6/uL Normal 4.08-6.37 [facility] Comment on above: Performed By: #### 2 [id number] ####[address] [address] RDW SD 45.5 fL Normal 39.3-48.6 [facility] Comment on above: Performed By: #### 2 027796 ####[facility] [address] [place] [address] WBC Auto #/vol (Bld) 7.2 10*3/uL Normal 4.2-11.0 [facility] Comment on above: Performed By: #### 2 [id number] ####[facility] [address] [place] [address] Creatinineon 12-26-2017 Creatinine mass conc 0.92 mg/dL Normal 0.50-1.30 [facility] Comment on above: Performed By: #### 1 [id number] ####[facility] [address] [place] [address] GFR/1.73 sq M.predicted MDRD vol rate/area mL/min/{1.73_m2} Normal [facility] Comment on above: Result Comment: Inte rpretation for Chronic Kidney Disease:Stages 1&2 >60 Healthy or potential kidney damage.Mild decrease of GFR.Stage 3 30-59 Moderate decrease of GFR.Stage 4 15-29 Severe decrease of GFR.Stage 5 <15 Kidney failure or on dialysis. Performed By: #### 1 [id number] ####[facility] [address] [facility] [employer] [place] [address] Electrolyte Panelon 12-27-19 18 Anion gap 3 molar conc 9 mmol/L Low 10-20 [facility] Comment on above: Performed By: #### 1 [id number] ####[facility] [address] [place] [address] Chloride molar conc 106 mmol/L Normal 98-107 [facility] Comment on above: Performed By: #### 1 [id number] ####[facility] [address] [place] [address] HCO3 molar conc (Bld) 29 mmol/L Normal 21-32 [facility] Comment on above: Performed By: #### 1 [id number] ####[facility] [address] [place] [address] Potassium molar conc 4.1 mmol/L Normal 3.5-5.1 [facility] Comment on above: Performed By: #### 1 [id number] ####[facility] [address] [place] [address] Sodium molar conc 140 mmol/L Normal 136-145 [facility] Comment on above: Performed By: #### 1 [id number] ####[facility] [address] [place] [address] Urea Nitrogenon 12-26-2017 Urea nitrogen mass conc 10 mg/dL Normal 6-23 [facility] Comment on above: Performed By: #### 1 [id number] ####[facility] [address] [place] [address] Vital Signs Date Time Vital Sign Value Performing Clinician Facility 02-13-2023 13:30-0400 Body height 181.61 cm Uche Porter Other [facility] Other 02-13-2023 13:30-0400 Body mass index (BMI) [Ratio] 32.73 kg/m2 Uche Catban Other [facility] Other 02-13-2023 13:30-0400 Body temperature 97.1 [degF] Uche Porter Other [facility] Other 02-13-2023 13:30-0400 Body weight 107.96 kg Uche Porter Other [facility] Other 02-13-2023 13:30-0400 Diastolic blood pressure 76 mm[Hg] Uche Porter Other [facility] Other 02-13-2023 13:30-0400 Respiratory rate 20 /min Uche Porter Other [facility] Other 02-13-2023 13:30-0400 SaO2% (BldA) [Mass fraction] 96 % Uche Porter Other [facility] Other 02-13-2023 13:30-0400 Systolic blood pressure 130 mm[Hg] Uche Porter Other [facility] Other 02-09-2023 10:45-0400 Body height 181.61 cm Regi Leong Other [facility] Other 02-09-2023 10:45-0400 Body mass index (BMI) [Ratio] 32.92 kg/m2 Regi Leong Other [facility] Other 02-09-2023 10:45-0400 Body weight 108.59 kg Regi Leong Other [facility] Other 02-09-2023 10:45-0400 Diastolic blood pressure 72 mm[Hg] Regi Leong Other [facility] Science Other 02-09-2023 10:45-0400 SaO2% (BldA) [Mass fraction] 97 % Regi Leong Other [employer] Other 02-09-2023 10:45-0400 Systolic blood pressure 118 mm[Hg] Regi Leong Other [employer] Other 12-12-2022 09:59-0400 Body height 180.34 cm Regi Leong Work Phone: [facility] [employer] 250 DO Work Phone: 12-12-2022 09:59-0400 Body mass index (BMI) [Ratio] 33.19 kg/m2 Regi Leong Work Phone: [facility] [employer] 250 DO Work Phone: 12-12-2022 09:59-0400 Body surface area Derived from formula 2.27 m2 Regi Leong Work Phone: [facility] [employer] 250 DO Work Phone: 12-12-2022 09:59-0400 Body weight 107.96 kg Regi Leong Work Phone: [facility] 250 DO Work Phone: 12-12-2022 09:59-0400 Diastolic blood pressure 64 mm[Hg] Regi Leong Work Phone: [facility] 250 DO Work Phone: 12-12-2022 09:59-0400 Heart rate 66 /min Regi Leong Work Phone: [facility] [employer] DO Work Phone: 12-12-2022 09:59-0400 Systolic blood pressure 110 mm[Hg] Regi Leong Work Phone: [facility] [employer] 250 DO Work Phone: 11-07-2022 15:00-0400 Body height 181.61 cm Uche Porter Other [employer] Other 11-07-2022 15:00-0400 Body mass index (BMI) [Ratio] 33.14 kg/m2 Uche German Other [employer] Other 11-07-2022 15:00-0400 Body temperature 97.8 [degF] Uche German Other [employer] Other 11-07-2022 15:00-0400 Body weight 109.32 kg Uche Catnguyễn Other [employer] Other 11-07-2022 15:00-0400 Diastolic blood pressure 81 mm[Hg] Uche German Other [employer] Other 11-07-2022 15:00-0400 Respiratory rate 20 /min Uche German Other [employer] Other 11-07-2022 15:00-0400 SaO2% (BldA) [Mass fraction] 96 % Uche German Other [employer] Other 11-07-2022 15:00-0400 Systolic blood pressure 128 mm[Hg] Augustoalverto Porter Other [employer] Other 09-04-2022 10:00-0400 Body height 181.61 cm Regi Leong Other [employer] Other 09-04-2022 10:00-0400 Body mass index (BMI) [Ratio] 33.97 kg/m2 Regi Leong Other [employer] Other 09-04-2022 10:00-0400 Body weight 112.04 kg Regi Leong Other [employer] Other 09-04-2022 10:00-0400 Diastolic blood pressure 72 mm[Hg] Regi Leong Other [employer] Other 09-04-2022 10:00-0400 SaO2% (BldA) [Mass fraction] 92 % Regi Leong Other [employer] Other 09-04-2022 10:00-0400 Systolic blood pressure 118 mm[Hg] Regi Leong Other [employer] Other 06-07-2022 09:01-0500 Body height 180.34 cm Jeancarlos Gudino Work Phone: MB-Pggzqeusrd-Bjmcaw [place] 250 DO Work Phone: 06-07-2022 09:01-0500 Body mass index (BMI) [Ratio] 33.75 kg/m2 Jeancarlos Gudino Work Phone: YL-Rdkgzvxoqn-Zaffoe [place] 250 DO Work Phone: 06-07-2022 09:01-0500 Body surface area Derived from formula 2.29 m2 Jeancarlos Gudino Work Phone: CE-Slkazfirim-Tmmjrj [place] 250 DO Work Phone: 06-07-2022 09:01-0500 Body weight 109.77 kg Jeancarlos Gudino Work Phone: QA-Wxhjqhgjoc-Qlkuqv [place] 250 DO Work Phone: 06-07-2022 09:01-0500 Diastolic blood pressure 82 mm[Hg] Jeancarlos Gudino Work Phone: QY-Fkutrcgbuk-Njfqmm [place] 250 DO Work Phone: 06-07-2022 09:01-0500 Heart rate 52 /min Jeancarlos Gudino Work Phone: BD-Wplixhzyia-Pgpmjh [place] 250 DO Work Phone: 06-07-2022 09:01-0500 Systolic blood pressure 130 mm[Hg] Jeancarlos Gudino Work Phone: OG-Vyudaysgnq-Xsnvej [place] 250 DO Work Phone: 12-06-2021 09:15-0400 Body height 180.34 cm Jeancarlos Gudino Work Phone: [facility] 250 DO Work Phone: 12-06-2021 09:15-0400 Body mass index (BMI) [Ratio] 32.78 kg/m2 Jeancarlos Gudino Work Phone: [facility] 250 DO Work Phone: 12-06-2021 09:15-0400 Body surface area Derived from formula 2.26 m2 Jeancarlos Reg Gudino Work Phone: [facility] 250 DO Work Phone: 12-06-2021 09:15-0400 Body weight 106.6 kg Jeancarlos Gudino Work Phone: [facility] 250 DO Work Phone: 12-06-2021 09:15-0400 Diastolic blood pressure 70 mm[Hg] Jeancarlos Gudino Work Phone: [facility] 250 DO Work Phone: 12-06-2021 09:15-0400 Heart rate 50 /min Jeancarlos Gudino Work Phone: [facility] 250 DO Work Phone: 12-06-2021 09:15-0400 Systolic blood pressure 136 mm[Hg] Jeancarlos Gudino Work Phone: [facility] 250 DO Work Phone: 09-09-2021 09:34-0400 Blood Pressure Location Jeancarlos GUDINO [facility] 09-09-2021 09:34-0400 Body temperature 97.52 [degF] Jeancarlos GUDINO [facility] 09-09-2021 09:34-0400 Diastolic blood pressure 74 mm[Hg] Jeancarlos GUDINO [facility] 09-09-2021 09:34-0400 Heart rate 60 /min Jeancarlos GUDINO [facility] 09-09-2021 09:34-0400 SaO2% (BldA) [Mass fraction] 95 % Jeancarlos GUDINO [facility] 09-09-2021 09:34-0400 Systolic blood pressure 122 mm[Hg] Jeancarlos GUDINO [facility] 05-24-2021 15:13-0500 Body height 180.34 cm Jeancarlos Gudino Work Phone: [facility] 250 DO Work Phone: 05-24-2021 15:13-0500 Body mass index (BMI) [Ratio] 32.36 kg/m2 Jeancarlos Gudino Work Phone: [facility] 250 DO Work Phone: 05-24-2021 15:13-0500 Body surface area Derived from formula 2.25 m2 Jeancarlos Gudino Work Phone: [facility] 250 DO Work Phone: 05-24-2021 15:13-0500 Body weight 105.24 kg Jeancarlos Gudino Work Phone: [facility] 250 DO Work Phone: 05-24-2021 15:13-0500 Diastolic blood pressure 78 mm[Hg] Jeancarlos Gudino Work Phone: [facility] 250 DO Work Phone: 05-24-2021 15:13-0500 Heart rate 61 /min Jeancarlos Gudino Work Phone: [facility] 250 DO Work Phone: 05-24-2021 15:13-0500 Systolic blood pressure 119 mm[Hg] Jeancarlos Gudino Work Phone: [facility] 250 DO Work Phone: Encounters Encounter Date Encounter Type Care Provider Facility Start: 01-04-2024 End: 01-04-2024 ambulatory [facility]ulatory Start: 08-07-2023 End: 08-07-2023 ambulatory Regi Leong Facility:[facility] Start: 08-07-2023 End: 08-07-2023 ambulatory MD Regi Leong Work Phone: [facility] Work Phone: Start: 08-07-2023 End: 08-07-2023 Patient encounter procedure MD Regi Leong Work Phone: [facility] [address] Work Phone: Start: 07-27-2023 Non-patient / Non-visit MD Maribel Leong Work Phone: [facility] Work Phone: Start: 06-19-2023 End: 06-19-2023 ambulatory [facility] Start: 06-12-2023 Non-patient / Non-visit MD Maribel Leong Work Phone: [facility] Physician [facility] [employer] [facility] Work Phone: Start: 02-13-2023 End: 02-13-2023 ambulatory Kamal Chaban Other [facility] [employer] Other Start: 02-13-2023 Office outpatient vi sit 25 minutes Kamal Chaban [facility] Start: 02-09-2023 End: 02-09-2023 ambulatory Regi Leong Other [facility] [employer] Other Start: 02-09-2023 Office outpatient vi sit 15 minutes Regi Leong [facility] Start: 02-01-2023 End: 02-01-2023 ambulatory Kamal Chaban Facility:[facility] Start: 01-05-2023 Telephone encounter Regi garcia Work Phone: [facility] 250 DO Work Phone: Start: 12-12-2022 Office outpatient vi sit 25 minutes Regi Leong Work Phone: [facility] 250 DO Work Phone: Start: 12-12-[address] Jeancarlos Larios [facility] Facility: Start: 11-07-2022 End: 11-07-2022 ambulatory Kamal Chaban Other [facility] [employer] Other Start: 11-07-2022 Office outpatient vi sit 15 minutes Kamal Chaban [facility] Start: 10-30-2022 End: 10-30-2022 ambulatory Regi Leong Other [facility] [employer] Other Start: 10-30-2022 Telephone encounter Regi Leong [facility] Start: 10-13-2022 End: 10-13-2022 ambulatory Kamal Chaban Facility:[facility] Start: 09-29-2022 End: 09-29-2022 ambulatory Regi Leong Other [employer] Other Start: 09-29-2022 Telephone encounter Regi Leong [facility] Start: 09-21-2022 End: 09-21-2022 ambulatory Regi Leong Other [employer] Other Start: 09-21-2022 Telephone encounter Regi Leong [facility] Start: 09-04-2022 Encounter for genera l adult medical examination without abnormal findings Regi Leong [facility] Start: 09-04-2022 Initial preventive medicine new patient 40-64yrs Regi Leong [facility] Start: 09-04-2022 End: 09-05-[address] REGI LEONG [employer] Other Start: 07-27-2022 End: 07-28-[address] JEANCARLOS GUDINO Facility:[facility] Start: 06-07-2022 End: 06-08-[address] CARLY GAMBLE Facility:[facility] Start: 06-07-2022 Office outpatient vi sit 25 minutes Jeancarlos Finney Terese Work Phone: [facility] DO Work Phone: Start: 06-07-[address] Jeancarlos Larios [facility] Facility:[id number] Start: 05-24-2022 End: 05-25-[address] JEANCARLOS GUDINO Facility:[facility] Start: 04-27-2022 End: 04-28-[address] JEANCARLOS GUDINO Facility:[facility] Start: 04-07-2022 End: 04-08-[address] JEANCARLOS GUDINO Facility:[facility] Start: 03-27-2022 End: 03-28-[address] JEANCARLOS GUDINO Facility: Start: 02-22-2022 End: 02-23-[address] JEANCARLOS GUDINO Facility:[facility] Start: 01-25-2022 End: 01-26-[address] JEANCARLOS GUDINO Facility:[facility] Start: 12-06-2021 Office outpatient vi sit 25 minutes Jeancarlos Gudino Work Phone: [facility] 250 DO Work Phone: Start: 11-21-2021 End: 11-22-[address] JEANCARLOS GUDINO Facility: Start: 09-26-2021 End: 09-27-[address] JEANCARLOS GUDINO Facility: Start: 09-16-2021 End: 09-17-2021 ambulatory Jeancarlos GUDINO Facility:[facility] Start: 09-09-2021 End: 09-10-2021 ambulatory Jeancarlos GUDINO Facility:[facility] Start: 09-09-2021 End: 09-09-2021 Patient encounter procedure Jeancarlos GUDINO [facility] Start: 09-09-2021 End: 09-09-2021 Well adult monitoring check done Jeancarlos GUDINO [facility] Start: 05-24-2021 Office outpatient vi sit 25 minutes Jeancarlos Gudino Work Phone: [facility] 250 DO Work Phone: Start: 03-11-2021 Patient encounter procedure Jeancarlos Gudino Work Phone: [facility] 250 DO Work Phone: Start: 03-08-2021 Patient encounter procedure Jeancarlos Gudino Work Phone: [facility] [address] [place] Work Phone: Start: 02-03-2021 Rx Renewal Jeancarlos Gomez t Work Phone: [facility] [address] [place] Work Phone: Start: 12-26-2017 Patient encounter CARLY GAMBLE Fac ility:[id number] Start: 02-20-2017 End: 02-21-2017 Ambulatory DEFAULT PHYSICIAN Facility:[facility] Procedures Date Procedure Procedure Detail Performing Clinician Start: 08-07-2023 CT of chest without contrast MD Regi Leong Work Phone: Start: 06-19-2023 ECG 12-LEAD CARLY GARCIA Start: 09-04-[address] TEOODRO GUDINO Comment on above: Performed By: #### P [facility] #### [facility] [address] [place] [address] Dr. Nabil Che Catheter ablation of arrhythmogenic focus Jeancarlos Gudino Work Phone: Cholecystectomy Jeancarlos duncan Work Phone: Colonoscopy Jeancarlos Gudino Work Phone: Plan of Treatment Date Care Activity Detail Author Start: 06-19-2023 FUV, Provider: Carly Gamble, Status: Pen, Time: 10:40 AM FUV, Provider: Carly Gamble, Status: Pen, Time: 10:40 AM [facility] 250 DO Work Phone: Start: 12-12-2022 FUV, Provider: Carly Gamble, Status: Pen, Time: 9:50 AM FUV, Provider: Carly Gamble, Status: Pen, Time: 9:50 AM [facility] 250 DO Work Phone: Start: 09-11-2022 ambulatory Ambulatory Facility:[facility] Start: 06-07-2022 FUV, Provider: Carly Gamble, Status: Pen, Time: 9:10 AM FUV, Provider: Carly Gamble, Status: Pen, Time: 9:10 AM [facility] 250 DO Work Phone: Start: 12-06-2021 FUV, Provider: Carly Gamble, Status: Pen, Time: 9:10 AM FUV, Provider: Carly Gamble, Status: Pen, Time: 9:10 AM [facility] 250 DO Work Phone: Start: 05-24-2021 FUV, Provider: Carly Gamble, Status: Pen, Time: 3:00 PM FUV, Provider: Carly Gamble, Status: Pen, Time: 3:00 PM [facility] [address] [place] Work Phone: Start: 03-11-2021 EVENT CARLITOS, Provider : YESSICA PETER PRESS SUPERVISOR [id number], Status: Pen, Time: 10:30 AM EVENT CARLITOS, Provider: YESSICA PETER PRESS SUPERVISOR 1,[id number], Status: Pen, Time: 10:30 AM [facility] [place] Work Phone: Immunizations Immunization Date Immunization Notes Care Provider Fa cili 01-21-2014 influenza virus vaccine, unspecified formulation Jeancarlos S [employer] Work Phone: [facility] 250 DO Work Phone: 02-12-2013 influenza virus vaccine, unspecified formulation [employer] [facility] 04-23-2008 pneumococcal polysaccharide vaccine, 23 valent Jeancarlos S Terese Work Phone: [facility] Work Phone: 04-23-2003 pneumococcal polysaccharide vaccine, 23 valent Jeancarlos S Terese Work Phone: [facility] 250 DO Work Phone: influenza virus vaccine, unspecified formulation Jeancarlos S [employer] Work Phone: [facility] Work Phone: Comment on above: 2012 2011 2009 2008 NEGATED: Highlighted row has not occurred!05-20-2020 influenza virus vaccine, unspecified formulation [employer] [facility] Payers Date Payer Category Payer Self-pay 1960 Unknown [id number] 1960 Unknown [id number] [id number] 1961 Unknown [id number] 2.16.840.1.375834.3.579.2.727 1961 Unknown [id number] 2.16.840.1.260199.3.579.2.593 1961 Unknown [id number] 2.16.840.1.765497.3.579.2.593 1961 Unknown [id number] 2.16.840.1.562277.3.579.2.593 1961 Unknown [id number] 2.16.840.1.425901.3.579.2.593 1961 Unknown [id number] 2.16.840.1.316068.3.579.2.593 1961 Unknown [id number] 2.16.840.1.584769.3.579.2.593 1961 Unknown [id number] 2.16.840.1.742406.3.579.2.593 1961 Unknown [id number] 2.16.840.1.009360.3.579.2.593 1961 Unknown [id number] 2.16.840.1.751758.3.579.2.593 1961 Unknown [id number] 2.16.840.1.418674.3.579.2.593 1961 Unknown [id number] 2.16.840.1.611657.3.579.2.593 1961 Unknown [id number] 2.16.840.1.095548.3.579.2.593 1961 Unknown [id number] 2.16.840.1.986464.3.579.2.356 1961 Unknown [id number] 2.16.840.1.725296.3.579.2.356 1961 Unknown [id number] 2.16.840.1.404527.3.579.2.1244 1961 Unknown [id number] 2.16.840.1.158572.3.579.2.1244 1959 Department of [facility] e ( and others) [id number] Unknown Unknown [id number] 2.16.840.1.698495.3.579.2.531 Unknown [id number] 2.16.840.1.715936.3.579.2.531 Unknown [id number] 2.16.840.1.031403.3.579.2.531 Social History Date Type Detail Facility Daily caffeine consumption Daily caffeine consumption -[facility] 250 DO Work Phone: Comment on above: 1-2 mixed drinks a m onth; 1 ppd; 1-2 mixed drinks a w yocha dehe; 1 decaff coffee; Start: 09-09-2021 Tobacco smoking status Heavy t obacco smoker (finding) [facility] Tobacco smoking status Never [facility] Sex Assigned At Male [facility] Start: 1960 Sex Assigned At Male F [facility] Clinical Notes 08-25-2021 to 02-13-2023 Note Date & Type Note Facility 02-13-2023 Evaluation note Encounter Date Diagnosis Assessment Notes Jan, Lung nodule (ICD-10 - R91.1) Jan, Tobacco use disorder (ICD-10 - F17.200) [employer] Other 10-20-2023 Evaluation note* Encounter Date Diagnosis Assessment Notes Treatment Notes Treatment Clinical Notes Jan, Benign paroxysmal positional vertigo, unspecified laterality (ICD-10 - H81.10) Order printed for PT. Pt will call and set up appt. 20 Oct, 2023 Mixed hyperlipidemia (ICD-10 - E78.2) Recheck labs. Pt had adverse side effects to crestor. [employer] Other 07-18-2023 Evaluation note* Encounter Date Diagnosis Assessment Notes Treatment Notes Treatment Clinical Notes Oct, Lung nodule (ICD-10 - R91.1) Oct, Nicotine dependence, cigarettes, uncomplicated (ICD-10 - F17.210) [employer] Other 05-15-2023 Evaluation note* Encounter Date Diagnosis [...] Dr. Finley - will set up with [facility] [place] August, Nicotine dependence, cigarettes, uncomplicated (ICD-10 - F17.210) agrees to LDCT and chantix. discussed side effects of chantix. August, Screening for colon cancer (ICD-10 - Z12.11) agrees to cologuard August, GERD without esophagitis (ICD-10 - K21.9) requests refill of Aciphex. [employer] Other 05-05-2022 Hospital Discharge instructions Follow Up Care 08/25/2021 11:29:08 With:Jeancarlos GUDINO DO, [facility] Address: [address] [place] [address]- When:Within 1 Year(s) [facility] [place] Evaluation + Plan note Future Appointments Appointment Date:09/16/2021 04:00:00 PM Scheduled [facility] () Appointment Date:09/11/2022 10:00:00 AM Scheduled Provider:Jeancarlos GUDINO DO Location:[facility] Appointment Type: Open Future Scheduled Tests Laboratory* PSA Screen, Total 08/29/21 * CBC w/ Auto Diff 08/29/21 * Comprehensive Metabolic Panel 08/29/21 * Lipid Panel 08/29/21 Radiology* MRI Brain w/o Contrast 09/16/21 [facility] Evaluation [facility] [employer] Other Evaluation noteNo assessment information available [facility] Work Phone: History general Narrative - Reported* Type Description Date Medical History Afib Medical History IBS Medical History Protruding disc C4-C5 Surgical History Cholecystectomy 2005 Surgical History Ablation on heart Surgical History Colonoscopy - Dr. Estes 2005 [place] Other Hospital course Narrative No data available for this section [facility] Reason for visit Narrative* Indication: Atrial [...] Carly Gamble MD * Enrollment sent to: [employer] * Monitor number [id number] applied. * Holter monitor printed and placed on Dr. Higinio Tyson MD desk to dictate. -[facility] 250 DO Work Phone: Summary Purpose Family [...] 400 mg daily * Carly Gamble MD, [facility] * ABHINAV FELIX is being seen for [...] He has active lifestyle and is in group home at the present time. His examination is [...] He has active lifestyle and is in group home at the present time. His examination is [...] any palpitations since he started taking magnesium [id number]. He is on Multaq and his rhythm [...] section and content) DATE CREATED AUTHOR 10/16/2017 [facility] DATE CREATED AUTHOR AUTHOR'S ORGANIZ ATION 01/30/2018 [facility] DATE CREATED AUTHOR AUTHOR'S ORGANIZ ATION 02/14/2019 [facility] DATE CREATED AUTHOR AUTHOR'S ORGANIZ ATION 07/31/2022 [facility] DATE CREATED AUTHOR AUTHOR'S ORGANIZ ATION 09/05/2022 [facility] DATE CREATED AUTHOR AUTHOR'S ORGANIZ ATION 12/13/2022 [facility] DATE CREATED AUTHOR AUTHOR'S ORGANIZ ATION 12/13/2022 [employer] DATE CREATED AUTHOR AUTHOR'S ORGANIZ ATION 08/11/2023 [facility] DATE CREATED AUTHOR AUTHOR'S ORGANIZ ATION 01/06/2024 [facility] Reason for Visit (unrecogniz ed section and content) Event Monitor:ABHINAV is here f or the application of a 30 day event monitor in office., Diagnosis: PAFOrdering Physician: Dr. Carly Gamble MDEnrollment sent to: [employer]Monitor number [id number] applied.[email or web address] wk f/u Lung Nodule3 mo f/u [...] BE BASED ON THE PRIMARY CLINICAL RECORDS. [email or web address] provides no warranty or guarantee of the accuracy or completeness of information in this document.
[2024-03-25 10:07] LABS: INR 1.66; Prothrombin Time 16.7 sec (9.0-11.6)
== END 2024-03-25 09:41 | disposition home or self-care (01) ==
LOC: LAB 09:41
PROVIDERS: PCP Family Medicine; Visit Provider Family Medicine
DX: I48.0 Paroxysmal atrial fibrillation (principal)
CPT/HCPCS: 36415; 85610

== ENCOUNTER 2024-07-25 11:22 | Outpatient (OUT) | payer OTHER, SELFPAY ==
--- OUTSIDE RECORDS SUMMARY | 2024-07-25 11:29 | XMS_ITS ---
Author Name Auto Generated Organization OHIP Care Team Providers Care Registered Nurse Step Down Name Role Phone CARLY ERICKSON Attending Unavailable CARLY ERICKSON Referring Unavailable REGI CHAPMAN Primary Care Unavailable Uche Porter Admitting Unavailable Uche Porter Attending Unavailable Regi Chapman Primary Care Unavailable Sandi Collazo Admitting Unavailable Sandi Collazo Attending Unavailable Regi Chapman Primary Care Unavailable PROBLEMS DATE TYPE CONDITION / CODE ATTENDING STATUS [facility] 06/14/2024 Unknown Shortness of sade ath / R06.02(ICD-10) Sandi Collazo [facility] 01/04/2024 Admitting Diagnosis Body mass index (BMI) 30.0-30.9, adult / Z68.30(ICD-10) CARLY ERICKSON [facility] 01/04/2024 Admitting Diagnosis Other alf (current) drug therapy / Z79.899(ICD-10) CARLY ERICKSON [facility] 01/04/2024 Admitting Diagnosis Mixed hyperlipidemia / E78.2(ICD-10) ERICKSONCARLY MCCABE [facility] 05/04/2023 Admitting Diagnosis Nicotine dependence, unspecified, uncomplicated / F17.200(ICD-10) ERICKSONCARLY MCCABE [facility] 04/09/2023 Admitting Diagnosis Paroxysmal atrial fibrillation (Multi) / I48.0(ICD-10) ERICKSONCARLY MCCABE [facility] 04/09/2023 Admitting Diagnosis Ventricular premature depolarization / I49.3(ICD-10) CARLY ERICKSON [facility] 04/09/2023 Admitting Diagnosis Transient cerebral ischemic attack, unspecified / G45.9(ICD-10) CARLY ERICKSON [facility] 04/09/2023 Admitting Diagnosis Chronic kidney disease, stage 3a (Multi) / N18.31(ICD-10) ERICKSONCARLY MCCABE [facility] 08/07/2023 Unknown Solitary pulmona ry nodule / R91.1(ICD-10) Augusto Porteralverto [facility] PROCEDURES No Procedure Records Found RESULTS XR CHEST 2V* Observed: 06/14/2024 9:46 AM Status: COMPLETED Source: [facility] REPOSITORY [facility] [place] [address] XRay Report Signed Patient: Abhinav Lezama MR#: [id number] : 1960 Acct:[id number] Age/Sex: 63 / M ADM Date: 06/14/24 Loc: XDUC Room: Type: [facility] Attending Dr: Sandi Collazo POST ANESTHESIA NURSE Copies to: Sandi Collazo APRN Ordering Provider: Sandi Collazo APRN Date of Service: 06/14/24 XR/XR chest 2V*: COUGH, DIZZINESS PA AND LATERAL CHEST: CLINICAL HISTORY: Cough, dizziness, night sweats COMPARISON: CT chest 08/07/2023 FINDINGS: Mild interstitial thickening. Lungs otherwise clear. No effusion or pneumothorax. Mildly enlarged cardiac silhouette. XR/XR chest 2V* IMPRESSION: NO ACUTE CARDIOPULMONARY ABNORMALITY. CHRONIC INTERSTITIAL THICKENING Impression dictated by: Jaden Castro M.D.06/14/2024 9:47 AM Dictation Location: [place] [address] Transcribed By: [facility] 06/14/24946 Dictated By: Jaden Castro MD 06/14/24945 Signed By: <Electronically signed by Jaden Castro MD in OV> 06/14/24946 CT CHEST WO CON Observed: 08/07/2023 4:21 PM Status: COMPLETED Source: [facility] REPOSITORY [facility] [place] [address] CT Scan Report Signed Patient: Abhinav Lezama MR#: [id number] : 1960 Acct:[id number] Age/Sex: 63 / M ADM Date: 08/07/23 Loc: [facility] Room: Type: [facility] Attending Dr: Uche Porter MD Copies [...] Aracelis Banks M.D.08/07/2023 4:29 PM Dictation Location: [place] [address] Transcribed By: [facility] 08/07/231628 Dictated By: Aracelis Banks MD 08/07/23 162 Signed By: <Electronically signed by MD Aracelis Banks in OV> 08/07/23 162 ALLERGIES DATE TYPE / CODE NAME / CODE REACTION SEVERITY SOURCE 06/17/2024 Drug Allergy/81889 8002(SNOMED CT) Penicillins/[id number] 6(RXNORM) Anaphylaxis Unknown [facility] 06/17/2024 Drug Allergy/58927 8002(SNOMED CT) dabigatran etexilate/[id number]( RXNORM) BLEEDING Unknown [facility] 06/19/2023 DRUG INGREDI/04602 1003(SNOMED CT) ROSUVASTATIN Myalgia [facility] 05/04/2023 DRUG INGREDI/55897 1003(SNOMED CT) DABIGATRAN ETEXILATE Bleeding [facility] 05/04/2023 Drug Class/5119321 03(SNOMED CT) PENICILLINS Unknown [facility] ENCOUNTERS ADMIT/DISCHARGE ACCOUNT NUMBER ADMITTING ENCOUNTER CLASS LOCATION SOURCE 06/14/2024/06/14/19 [id number] Sandi Collazo [facility] [id number] Ambulatory Building:[facility] [id number] [facility] 08/07/2023/08/07/19 [id number] Uche Porter [facility] ng:[facility] PAYERS ENCOUNTER GUARANTOR PAYER SUBSCRIBER SOURCE 06/14/2024 Ab[address]av [address] [place] [address]Seg: () Primary Insurance:[facility] ServicesPolicy Number: [id number] Date:[id number] [address]RM: Abhinav TapiaB: [id number] [place] [address]Cxv: () [facility] 06/14/2024 Secondary Insurance:Self PayPolicy Number: Effective Date:2024-06-14 [facility]24 ABHINAV AGUIAR: [id number] [address] [facility] [place] [address]Pnb: (HP) Primary Insurance:[facility] Health Systemy Number: [id number] Date:2023-04-23 ABHINAV Blount LIZZETHB: [id number] [place], [place] [address]Jbb: (HP) [facility] 08/07/2023 Abhinav Blount [address] [place] [address]Cgq: (HP) Primary Insurance:[facility] RegionPolicy Number: [id number] Date:2023-02-13 Abhinav Blount LizzethB: [id number] [place] [address]Nxb: () [facility] 08/07/2023 Secondary Insurance:Self PayPolicy Number: Effective Date:2023-07-27 [facility]
[2024-07-25 12:18] LABS: INR 1.79; Prothrombin Time 17.9 sec (9.0-11.6)
== END 2024-07-25 11:23 | disposition home or self-care (01) ==
LOC: LAB 11:23
PROVIDERS: PCP Family Medicine; Visit Provider Family Medicine
DX: I48.0 Paroxysmal atrial fibrillation (principal)
CPT/HCPCS: 36415; 85610

== ENCOUNTER 2024-07-25 11:27 | Outpatient (OUT) | payer OTHER, SELFPAY ==
[2024-07-25 11:55] LABS: Basophils Absolute Auto 0.1 10^3/uL (0.0-0.1); Basophils Percent Auto 0.8 % (0.2-2.0); Eosinophils Absolute Auto 0.2 10^3/uL (0.0-0.7); Eosinophils Percent Auto 2.7 % (0.9-7.0); Hematocrit 47.7 % (42.0-54.0); Hemoglobin 16.5 g/dL (14.0-18.0); Immature Granulocytes Abs Auto 0.03 10^3/uL (0.00-0.03); Immature Granulocytes Pct Auto 0.4 % (0.0-0.5); Lymphocytes Percent Auto 23.6 % (20.5-60.0); Mean Corpuscular HGB Conc 34.6 g/dL (29.9-35.2); Mean Corpuscular Hemoglobin 30.6 pg (25.9-34.0); Mean Corpuscular Volume 88.5 fL (80.0-94.0); Mean Platelet Volume 10.4 fL (9.5-13.5); Monocytes Absolute Auto 1.2 10^3/uL (0.3-0.8); Monocytes Percent Auto 14.1 % (1.7-12.0); Neutrophils Absolute Auto 4.8 10^3/uL (1.4-6.5); Neutrophils Percent Auto 58.4 % (43.0-75.0); Platelet Count 194 10^3/uL (150-450); Red Blood Count 5.39 10^6/uL (4.70-6.10); Red Cell Distribution Width 13.2 % (11.0-15.0); White Blood Count 8.3 10^3/uL (4.0-11.0)
[2024-07-25 13:15] LABS: Anion Gap 7.6; BUN Creatinine Ratio 10.5; Calcium 8.9 mg/dL (8.5-10.1); Carbon Dioxide 29.2 mmol/L (21.0-32.0); Chloride 105 mmol/L (98-107); Estimated GFR (African America >60 (>=60 mL/min/1.73m^2); Estimated GFR (Non-African Ame >60 (>=60 mL/min/1.73m^2); Glucose 97 mg/dL (74-106); Potassium 4.8 mmol/L (3.5-5.1); Sodium 137 mmol/L (136-145)
== END 2024-07-25 11:28 | disposition home or self-care (01) ==
LOC: LAB 11:28
PROVIDERS: PCP Family Medicine; Visit Provider Internal Medicine Cardiovascular Disease
DX: I48.0 Paroxysmal atrial fibrillation (principal); Z79.899 Other long term (current) drug therapy; N18.31 Chronic kidney disease, stage 3a
CPT/HCPCS: 36415; 80048; 85025

== ENCOUNTER 2024-12-05 10:28 | Emergency (ER) | payer OTHER, SELFPAY ==
[2024-12-05] VITALS (33 sets, daily range): BP systolic 108–164; BP diastolic 68–88; PULSE 53–75; TEMP 36.7; O2SAT 95–97; BMI 30.7
--- OUTSIDE RECORDS SUMMARY | 2024-12-05 10:40 | XMS_ITS | CCD ---
[facility] Organization [facility] Providers Care Continuous Pickling Line Pickler Helper Name Role Phone PHYSICIAN, DEFAULT Unavailable Unavailable PHYSICIAN, DEFAULT Unavailable Unavailable CARLY GAMBLE Unavailable Unavailable TERESE, JEANCARLOS Unavailable Unavailable Jeancarlos Gudino Unavailable Unavailable Unavailable [...] Care Unavailable TERESE, DR JEANCARLOS Rodriguez Unavailable TYE, DR CARLY White Consulting Unavailable [...] TERESE, DR JEANCARLOS Finney [facility] Unavailable Uche Porter Unavailable Regi Leong Unavailable Terese, Dr. Jeancarlos Dhillon [facility] Simranvafranck Gamble, Dr. Carly Godoy Attending Simran vailable Tye, Dr. Carly Godoy Referring Simran vailable Terese, Dr. Jeancarlos Dhillon [facility] Unavai labaidan Gamble, Dr. Carly Godoy Attending Simran vailable Gamble, Dr. Carly Godoy Referring Simran vailable MD Regi Leong Primary Care Provider MD Uche Porter Attending Provider Regi Leong MD Primary Care Provider Carly Gamble MD Unavailable Regi Leong MD Primary Care Provider Carly Gamble MD Unavailable CARLY GAMBLE Attending Unavailable CARLY GAMBLE Referring Unavailable REGI LEONG Primary Care Unavailable CARLY GAMBLE Attending Unavailable CARLY GAMBLE Referring Unavailable REGI LEONG Primary Care Unavailable Regi Leong MD Primary Care Provider [phone] Sandi Collazo APRN Attending Provider Kelechi Martin MD Attending Provider Regi Leong MD Primary Care Provider Chas Dean MD Attending Provider [phone] Regi Leong Primary Care Unavailable Chas Dean Attending Unavailable Chas Dean Admitting Unavailable Regi Leong Primary Care Unavailable Kelechi Martin Attending Unavaila ble Kelechi Martin Admitting Unavaila ble Vale, Sandi M Attending Unavailable Vale Sandi M Admitting Unavailable Regi Leong Primary Care Unavailable Regi Leong MD Primary Care Provider [phone] Chas Dean MD Attending Provider Kelechi Martin MD Attending Provider Chas Dean MD Other Provider [phone] Regi Leong MD Attending Provider [phone] Allergies Allergy Classification Reported Allergen(s) Allergy Type Date of Onset Reaction(s) Facility (19 sources) dabigatran etexilate; Translations: [Pradaxa CAPS] Drug Allergy 4 Bleeding [facility] (17 sources) Penicillins; Translations: [Penicillins] Allergy to drug (finding) [address] Work Phone: (2 sources) dabigatran etexilate; Translations: [dabigatran] Drug Allergy Rectal hemorrhage (disorder), Bleeding from nose (finding), Incontinence (finding) [facility] (8 sources) Penicillin; Translations: [penicillin] Drug Allergy 7 anaphylaxis [facility] (6 sources) dabigatran etexilate; Translations: [DABIGATRAN ETEXILATE] Drug Allergy 4 [facility] (1 source) Penicillins Drug Allergy 4 Unknown [facility] Work Phone: (3 sources) rosuvastatin; Translations: [ROSUVASTATIN] Drug Allergy 4 Myalgia [facility] (1 source) Penicillins Drug Allergy 4 Unknown [facility] Work Phone: (1 source) Penicillins Drug allergy (disorder) 5 [facility] Repository Medications Current Medications Medication Drug Class(es) Dates Sig (Normalized) Sig (Original) Aciphex 20 mg Tab-EC (1 source) Start: 05-21-2021 take 1 tablet by mouth once daily Aciphex 20 mg Tab-EC 20 mg = 1 tab(s), Oral, Daily, # 90 tab(s), Refills(s) 3, Pharmacy: [email or web address], 180.3, cm, 05/20/20 15:18:00 EST, Height/Length Dosing, 108.4, kg, 05/20/20 15:18:00 EST, Weight Dosing Start Date: 05/21/21 Status: Ordered bisoprolol fumarate 5 mg oral tablet (2 sources) beta-Adrenergic Arvind Start: 04-18-2023 End: 04-17-2024 bisoprolol (Zebeta) 5 mg tablet Indications: Palpitations TAKE 1 TABLET DAILY (STOP BYSTOLIC NEW START) 90 tablet 3 04/14/2024 Active sugar-free cholestyramine resin 4000 mg powder for oral suspension (9 sources) Bile Acid Sequestrant Start: 08-26-2024 Cholestyramine 4 gram powder Active 4 GM PO As Directed August 26, 2024 12:00am Complies with drug therapy Start: 12-02-2018 Questran 4 g/9 g oral powder = 1 packet(s), Oral, BID, # 60 EA, Refills(s) 5, Pharmacy: [email or web address] Start Date: 12/02/18 Status: Ordered Cholestyramine 4 GM Oral Packet MIX THE CONTENTS OF 1 POWDER PACKET WITH 2 TO 6 OZ OF NONCARBONATED BEVERAGE NEEDED. Quantity: 0 Refills: 0 Ordered: 12-Dec-2022 DO Active dronedarone 400 mg oral tablet (20 sources) Antiarrhythmic Start: 08-07-2023 End: 10-23-2024 take 1 tablet by mouth twice daily at mealtime Dronedarone (Multaq) 400 mg tablet Active 400 MG PO Twice daily August 15, 2024 12:00am must administer with a meal/food Complies with drug therapy Start: 05-20-2020 take 1 tablet by ej [...] Start : 24-May-2021 Active New start nebivolol 10 mg oral tablet (20 sources) Start: 08-07-2023 take 1 tablet by mouth once daily Nebivolol 10 mg tablet Active 1 TAB PO Daily August 07, 2023 12:00am FreeTextSi tablet Orally Once a day; Note: Source Status: Taking; Provider: German Ivey ( ) Complies with drug therapy Start: 08-07-2023 take 1 tablet by ej [...] Carly Gamble MD Start : 03-Feb-2021 Active pravastatin sodium 40 mg oral tablet (6 sources) HMG-CoA Reductase Inhibitor Start: 08-14-2023 take 1 tablet by mouth once daily Pravastatin 40 mg tablet Active 40 MG PO Daily August 14, 2023 12:00am Complies with drug therapy Start: 06-01-2023 End: 04-08-2025 take 1 tablet by mouth once daily in the evening pravastatin (Pravachol) 20 mg tablet Indications: High triglycerides Take 1 tablet (20 mg) by mouth once daily in the evening. 90 tablet 3 04/08/2024 04/08/2025 Active Start: 01-05-2023 take 1 mg by mouth once daily Pravastatin Sodium 20 MG Oral Tablet take one daily at night Quantity: 30 Refills: 5 Ordered: 05-Jan-2023 Carly Gamble MD Start : 05-Jan-2023 Active new replaces crestor RABEprazole sodium 20 mg delayed release oral tablet (20 sources) Proton Pump Inhibitor Start: 09-03-2023 End: 01-28-2024 Rabeprazole 20 mg tablet,delayed release (DR/EC) Active 0 .ROUTE .COMPLEX January 28, 2024 8:54am TAKE 1 TABLET DAILY Complies with drug therapy Start: 05-21-2021 End: 09-03-2023 take 1 tablet by mouth once daily Rabeprazole (Aciphex) 20 mg tablet,delayed release (DR/EC) Discontinued 20 MG PO Daily August 07, 2023 12:00am September 03, 2023 12:41pm Aciphex Active Rabeprazole 20 mg tablet,del ayed release (DR/EC) (4 sources) Start: 01-28-2024 Rabeprazole 20 mg tablet,delayed release (DR/EC) Active 0 .ROUTE .COMPLEX January 28, 2024 8:54am TAKE 1 TABLET DAILY Start: 09-03-2023 End: 01-28-2024 Rabeprazole 20 mg tablet,del ayed release (DR/EC) Discontinued 0 .ROUTE .COMPLEX September 03, 2023 12:41pm January 28, 2024 8:54am TAKE 1 TABLET DAILY varenicline 1 mg oral tablet (2 sources) [...] for 90 days August, Active warfarin sodium 4 mg oral tablet (20 sources) Vitamin K Antagonist Start: 03-21-2024 Warfarin 4 mg tablet Active 0 .ROUTE .COMPLEX March 21, 2024 8:49am TAKE 1 TABLET DAILY Complies with drug therapy Start: 03-21-2024 Warfarin 4 mg tablet Active 0 .ROUTE .COMPLEX March 21, 2024 8:49am TAKE 1 TABLET DAILY Start: 09-27-2023 End: 03-21-2024 take 1 tablet by mouth once daily Warfarin 4 mg tablet Discontinued 4 MG PO Daily January 09, 2024 1:39pm March 21, 2024 8:49am Start: 02-08-2021 Warfarin Sodiu m 5 MG Oral Tablet DIRECTED BY DR GUDINO Quantity: 0 Refills: 0 Ordered: 11-May-2021 DO Start : 08-Feb-2021 Active Start: 02-08-2021 End: 09-27-2023 take 1 tablet by mouth once daily Warfarin 5 mg tablet Discontinued 5 MG PO Daily July 27, 2023 10:48pm September 27, 2023 12:17pm Warfarin 5mg 5 m g 1 tab orally tu, , sun, & sun Active Warfarin 5mg 5 m g 1 & 1/2 tab orally Mon, sun, & sun Active Completed/Discontinued Medications Medication Drug Class(es) Dates Sig (Normalized) Sig (Original) [id number] 200 actuat albuterol 0.09 mg/actuat metered dose inhaler (3 sources) beta2-Adrenergic Agonist Start: 06-17-2024 End: 08-15-2024 take 1 puff(s) by inhalation every four to six hours as needed for wheezing Albuterol Sulfate 90 mcg/actuation HFA aerosol inhaler Discontinued 2 PUFF INHALATION EVERY 4-6 HOURS as needed for shortness of breath or wheezing 8.5 June 17, 2024 1:00am August 15, 2024 10:05am 12 hr buPROPion hydrochloride 150 mg extended release oral tablet (13 sources) Aminoketone Start: 08-01-2023 End: 08-14-2023 take 1 tablet by mouth twice daily Bupropion Hcl 150 mg tablet sustained-release 12 hr Discontinued 150 MG PO Twice daily 180 August 01, 2023 8:55am August 14, 2023 3:05pm Start: 07-27-2023 End: 08-01-2023 take 1 tablet by mouth once daily Bupropion Hcl 150 mg tablet sustained-release 12 hr Discontinued 150 MG PO Daily July 27, 2023 10:47pm August 01, 2023 8:56am Wellbutrin SR 15 0 MG 1 tablet in the morning Orally Once a day x 3 days, then bid for 30 days Active colestipol hydrochloride 5000 mg granules for oral suspension (11 sources) Bile Acid Sequestrant Start: 08-07-2023 End: 08-26-2024 Colestipol 5 gram granules Discontinued GM PO As Directed August 07, 2023 12:00am August 26, 2024 8:47am FreeTextSig: as directed Orally; Note: Source Status: Taking; Provider: Salo Jones Start: 08-07-2023 Colestipol Act montez GM PO As Directed August 07, 2023 12:00am FreeTextSig: as directed Orally; Note: Source Status: Taking; Provider: Salo Jones Colestid 5 GM as directed Orally Active docosahexaenoic acid 120 mg / eicosapentaenoic acid 180 mg oral capsule (3 sources) take 2 capsules by mouth twice daily [place] 3 1000 MG Oral Capsule TAKE 2 CAPSULE Twice daily Quantity: 0 Refills: 0 Ordered: 06-Dec-2021 DO Active Magnesium (5 sources) take 1 tablet by mouth once daily Magnesium 250 MG Oral Tablet TAKE 1 TABLET DAILY. Quantity: 0 Refills: 0 Ordered: 06-Dec-2021 DO Active rosuvastatin calcium 20 mg oral tablet (1 source) HMG-CoA Reductase Inhibitor Start: 12-13-19 take 1 tablet by mouth once daily Rosuvastatin Calcium 20 MG Oral Tablet TAKE 1 TABLET DAILY. Quantity: 90 Refills: 3 Ordered: 12-Dec-2022 Carly Gamble MD Start : 12-Dec-2022 Active Sod Picosulf-Mag Ox-Citric Ac (2 sources) Start: 08-16-19 End: 09-12-19 take 1 dose by mouth once daily Sod Picosulf-Mag Ox-Citric Ac (Clenpiq) 10 mg-3.5 gram- 12 gram/175 mL solution Discontinued 175 ML PO Daily 350 0 August 15, 2024 12:00am September 11, 2024 7:30am Take first dose at 3pm evening before colonoscopy; second dose at 9 pm night before colonoscopy Problems Active Problems Problem Classification Problem Date Documented Date Episodic/Chronic Biliary tract disease (6 sources) Postcholecystectomy syndrome; 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] 06-17-2024 Episodic Cardiac dysrhythmias (20 sources) Paroxysmal atrial fibrillation; Translations: [Atrial fibrillation] Onset: 2 Chronic Cardiac dysrhythmias (11 sources) Palpitations; Translations: [Palpitations] Onset: 3 04-09-2023 Episodic Cardiac dysrhythmias (1 source) Cardiac dysrhythmias Onset: 8 Chronic kidney disease (8 sources) Chronic kidney disease stage 3A ; Translations: [Chronic kidney disease, Stage III (moderate)] Onset: 3 Resolved: 3 01-04-2024 Chronic Chronic kidney disease (2 sources) Chronic kidney disease; Translations: [Chronic kidney disease, stage 3a (Multi)] Onset: 3 Conditions associated with dizziness or vertigo (7 sources) Dizziness and giddiness; Translations: [Dizziness and giddiness] Onset: 2 Episodic Disorders of lipid metabolism (20 sources) Hypertriglyceridemia; Translations: [Pure hyperglyceridemia] Onset: 3 Resolved: 3 Chronic Esophageal disorders (14 sources) Gastroesophageal reflux disease; Translations: [GERD [Gastroesophageal reflux disease]] Chronic Other aftercare (6 sources) Drug therapy finding; Translations: [Long-term (current) use of other medications] Episodic Other aftercare (4 sources) Encounter for therapeutic drug level monitoring; Translations: [ENC THERAPEUTC DRUG LEVL MONITORING] Onset: 3 Episodic Other aftercare (5 sources) Taking high risk medication; Translations: [Other terminal operator (current) drug therapy] Onset: 4 01-04-2024 Episodic Other ear and sense organ disorders (1 source) Hearing loss; Translations: [Unspecified hearing loss, right ear] Onset: 2 Chronic Other ear and sense organ disorders (1 source) Hearing loss of right ear 09-09-2021 Chronic Other gastrointestinal disorders (4 sources) Other intestinal malabsorption; 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 Other lower respiratory disease (9 sources) Nodule of lung; Translations: [Solitary pulmonary nodule] 08-11-2023 Episodic Other lower respiratory disease (3 sources) Solitary pulmonary nodule; Translations: [Solitary pulmonary nodule] Episodic Other lower respiratory disease (3 sources) Dyspnea; Translations: [Shortness of breath] 06-14-2024 Episodic Other nervous system disorders (2 sources) Trigeminal neuralgia; Translations: [Trigeminal neuralgia] Onset: 2 Episodic Other non-traumatic joint disorders (3 sources) Hip pain; Translations: [Pain in right hip] 09-12-2023 Episodic Other nutritional; endocrine; and metabolic disorders (6 sources) Obesity; Translations: [Obesity, unspecified] Chronic Other nutritional; endocrine; and metabolic disorders (4 sources) Body mass index 30+ - obesity; Translations: [Body mass index (BMI) 30.0-30.9, adult] Onset: 4 01-04-2024 Chronic Other nutritional; endocrine; and metabolic disorders (1 source) Obese class I; Translations: [Obesity, Class I, BMI 30-34.9] 08-01-2024 Chronic Other nutritional; endocrine; and metabolic disorders (2 sources) Body mass index (BMI) 30.0-30.9, adult; Translations: [Body mass index (BMI) 30.0-30.9, adult] Onset: 4 Chronic Other nutritional; endocrine; and metabolic disorders (3 sources) Weight decreased; Translations: [Abnormal weight loss] 09-12-2023 Episodic Other screening for suspected conditions (not mental disorders or infectious disease) (12 sources) CT of chest abnormal; Translations: [Abnormal findings on diagnostic imaging of other specified body structures] Chronic Other screening for suspected conditions (not mental disorders or infectious disease) (13 sources) Encounter for screening for malignant neoplasm of prostate; Translations: [Encounter for screening for malignant neoplasm of colon] Onset: 5 Episodic Other upper respiratory infections (2 sources) Chronic maxillary sinusitis; Translations: [Chronic maxillary sinusitis] 11-05-2024 Chronic Other upper respiratory infections (4 sources) Viral upper respiratory tract infection; Translations: [Acute upper respiratory infection, unspecified] 06-14-2024 Episodic Substance-related disorders (20 sources) Smokes tobacco daily; Translations: [Tobacco use disorder] Onset: 4 Chronic Comment on above: 1 ppd; Syncope (1 source) Vasovagal attack 07-01-2013 Episodic Transient cerebral ischemia (11 sources) Transient cerebral ischemia; Translations: [Unspecified transient cerebral ischemia] Onset: 3 01-04-2024 Chronic Unclassified (2 sources) Other terminal operator (current) drug therapy / Z79.899(ICD-9) Onset: 8 Unclassified (3 sources) Patient encounter status 05-01-2019 Past or Other Problems Problem Classification Problem Date Documented Da te Episodic/Chronic Blindness and vision defects (8 sources) Eye / vision finding; Translations: [Unspecified visual disturbance] Onset: 04-09-2023 Resolved: 12-12-2022 04-09-2023 Episodic Other aftercare (3 sources) Other penitentiary (current) drug therapy; Translations: [OTH FRAME FIXER CURRENT DRUG THERAPY] Onset: 06-12-2022 Episodic Other lower respiratory disease (3 sources) Shortness of breath; Translations: [Shortness of breath] Onset: 06-14-2024 06-14-2024 Episodic Other nervous system disorders (8 sources) Vela's palsy; 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 [facility] Complete Blood Count Auto Di ffOrdered By: Chas Dean on 09-11-2024 Basophils (Bld) [#/Vol] 0.1 10*3/uL 0.0-0.2 [facility] Comment on above: Result Comment: PERF ORMED BY: [facility] [address] [place] [address] PATHOLOGIST YARD CONDUCTOR MARK AVITIA M.D. Performed By: #### C BC, PTT, PT #### [facility] [address] [place] [address] [place] Basophils/100 WBC (Bld) 1.2 % . [facility] Comment on above: Performed By: #### C BC, PTT, PT #### [facility] [address] Eosinophils (Bld) [#/Vol] 0.2 10*3/uL 0.0-0.45 [facility] Comment on above: Performed By: #### C BC, PTT, PT #### [facility] [address] Eosinophils/100 WBC (Bld) 2.0 % . [facility] Comment on above: Performed By: #### C BC, PTT, PT #### [facility] [address] Erythrocyte distribution width (RBC) [Ratio] 14.0 % 12.0-14.8 [facility] Comment on above: Performed By: #### C BC, PTT, PT #### [facility] [address] [place] [address] Hematocrit (Bld) [Volume fraction] 47.8 % 38.8-50.0 [facility] Comment on above: Performed By: #### C BC, PTT, PT #### [facility] [address] [place] [address] Hemoglobin (Bld) [Mass/Vol] 16.8 g/dL 13.0-17.0 [facility] Comment on above: Performed By: #### C BC, PTT, PT #### [facility] [address] [place] [address] [place] Lymphocytes (Bld) [#/Vol] 2.1 10*3/uL 1.00-4.8 [facility] Comment on above: Performed By: #### C BC, PTT, PT #### [facility] [address] [place] [address] [place] Lymphocytes/100 WBC (Bld) 20.5 % . [facility] Comment on above: Performed By: #### C BC, PTT, PT #### [facility] [address] [place] [address] [place] MCH (RBC) [Entitic mass] 31.5 pg 27.5-35.2 [facility] Comment on above: Performed By: #### C BC, PTT, PT #### [facility] [address] MCV (RBC) [Entitic vol] 89.6 fL 83.5-101 [facility] Comment on above: Performed By: #### C BC, PTT, PT #### [facility] [address] [place] [address] [place] Monocytes (Bld) [#/Vol] 1.3 10*3/uL High 0.0-0.8 [facility] Comment on above: Performed By: #### C BC, PTT, PT #### [facility] [address] Monocytes/100 WBC (Bld) 12.7 % . [facility] Comment on above: Performed By: #### C BC, PTT, PT #### [facility] [address] [place] [address] [place] Neutrophils (Bld) [#/Vol] 6.5 10*3/uL 1.8-7.7 [facility] Comment on above: Performed By: #### C BC, PTT, PT #### [facility] [address] [place] [address] [place] Neutrophils/100 WBC (Bld) 63.6 % . [facility] Comment on above: Performed By: #### C BC, PTT, PT #### [facility] [address] [place] [address] [place] Platelet mean volume (Bld) [Entitic vol] 8.8 fL 6.6-10.1 [facility] Comment on above: Performed By: #### C BC, PTT, PT #### [facility] [address] [place] [address] [place] Platelets (Bld) [#/Vol] 180 10*3/uL 150-450 [facility] Comment on above: Performed By: #### C BC, PTT, PT #### [facility] [address] RBC (Bld) [#/Vol] 5.33 10*6/uL 3.90-5.60 [facility] Comment on above: Performed By: #### C BC, PTT, PT #### [facility] [address] WBC (Bld) [#/Vol] 10.2 10*3/uL 4.1-10.5 [facility] Comment on above: Performed By: #### C BC, PTT, PT #### [facility] [address] [place] [address] Complete Blood Count Auto Di ffon 09-11-2024 Mean Corpuscular HGB Conc 35.1 g/dL Normal 32.5-35.6 [facility] Comment on above: Performed By: #### C BC, PTT, PT #### [facility] [address] [place] [address] NRBC% 0.1 /100{WBC} Normal 0-0.5 [facility] Comment on above: Performed By: #### C BC, PTT, PT #### [facility] [address] [place] [address] Eosinophils Auto (Bld) [#/Vo l]Ordered By: Chas Dean on 09-11-2024 Eosinophils (Bld) [#/Vol] Automated eosinophil count 0.0-0.45 [facility] Eosinophils/100 WBC Auto (Bl d)Ordered By: Chas Dean on 09-11-2024 Eosinophils/100 WBC (Bld) Automated eosinophil % . [facility] Erythrocyte distribution wid th Auto (RBC) [Ratio]Ordered By: Chas Dean on 09-11-2024 Erythrocyte distribution width (RBC) [Ratio] Erythrocyte distribution width [Ratio] by Automated count 12.0-14.8 [facility] Hematocrit Auto (Bld) [Volum e fraction]Ordered By: Chas Dean on 09-11-2024 Hematocrit (Bld) [Volume fraction] Hematocrit [Volume Fraction] of Blood by Automated count 38.8-50.0 [facility] Hemoglobin [Mass/volume] in BloodOrdered By: Chas Dean on 09-11-2024 Hemoglobin (Bld) [Mass/Vol] Hemoglobin [Mass/volume] in Blood 13.0-17.0 [facility] INR in Platelet poor plasma by Coagulation assayOrdered By: Chas Dean on 09-11-2024 INR Coag (PPP) [Relative time] INR in Platelet poor plasma by Coagulation assay [facility] Comment on above: INR Therapeutic Rang e A) Pre- and Peroperative OAT started two weeks before surgery. NOT HIP SURGERY: 1.5 - 2.5 HIP SURGERY: 2 - 3B) Primary and secondary prevention of venous THROMBOSIS: 2 - 3C) Active venous thrombosis, pulmonary embolismand prevention of recurrent venous thrombosis: 2 - 3D) Prevention of arterial thromboembolismincluding patients with mechanical heart valves: 3 - 4.5 Leukocytes [#/volume] correc traci for nucleated erythrocytes in Blood by Automated counOrdered By: Chas Dean on 09-11-2024 WBC corrected for nucl RBC Auto (Bld) [#/Vol] Leukocytes [#/volume] corrected for nucleated erythrocytes in Blood by Automated coun 4.1-10.5 [facility] WBC corrected for nucl RBC Auto (Bld) [#/Vol] 10.2 10*3/uL 4.1-10.5 [facility] Lymphocytes Auto (Bld) [#/Vo l]Ordered By: Chas Dean on 09-11-2024 Lymphocytes (Bld) [#/Vol] Lymphocytes [#/volume] in Blood by Automated count 1.00-4.8 [facility] Lymphocytes/100 WBC Auto (Bl d)Ordered By: Chas Dean on 09-11-2024 Lymphocytes/100 WBC (Bld) Lymphocytes/100 leukocytes in Blood by Automated count . [facility] MCH Auto (RBC) [Entitic mass ]Ordered By: Chas Dean on 09-11-2024 MCH (RBC) [Entitic mass] MCH [Entitic mass] by Automated count 27.5-35.2 [facility] MCHC Auto (RBC) [Mass/Vol]Or dered By: Chas Dean on 09-11-2024 MCHC (RBC) [Mass/Vol] MCHC [Mass/volume] by Automated count 32.5-35.6 [facility] MCHC (RBC) [Mass/Vol] 35.1 g/dL 32.5-35.6 [facility] MCV Auto (RBC) [Entitic vol] Ordered By: Chas Dean on 09-11-2024 MCV (RBC) [Entitic vol] MCV [Entitic volume] by Automated count 83.5-101 [facility] Monocytes Auto (Bld) [#/Vol] Ordered By: Chas Dean on 09-11-2024 Monocytes (Bld) [#/Vol] Automated blood monocyte count High 0.0-0.8 [facility] [facility] Monocytes/100 WBC Auto (Bld) Ordered By: Chas Dean on 09-11-2024 Monocytes/100 WBC (Bld) Automated monocyte % . [facility] Neutrophils Auto (Bld) [#/Vo l]Ordered By: Chas Dean on 09-11-2024 Neutrophils (Bld) [#/Vol] Neutrophils [#/volume] in Blood by Automated count 1.8-7.7 [facility] Neutrophils/100 WBC Auto (Bl d)Ordered By: Chas Dean on 09-11-2024 Neutrophils/100 WBC (Bld) Automated neutrophil % . [facility] No Panel InformationOrdered By: Chas Dean on 09-11-2024 Miscellaneous Pathology Test See comment [facility] Comment on above: See report. Scanned copy available in EMR. Nucleated erythrocytes [Pres ence] in Blood by Automated countOrdered By: Chas Dean on 09-11-2024 Nucleated RBC Auto Ql (Bld) Nucleated erythrocytes [Presence] in Blood by Automated count 0-0.5 [facility] Nucleated RBC Auto Ql (Bld) 0.1 /100{WBC} 0-0.5 [facility] Partial Thromboplastin Timeo n 09-11-2024 aPTT Coag (Bld) [Time] 34.6 s Normal 25.1-36.5 [facility] Comment on above: Result Comment: A he matocrit value greater than 55% may lead to inaccurate results in coagulation testing. Patients having hematocrit values >55% require a special collection tube for coagulation studies. Please contact the laboratory at [phone] for redraw instructions. PERFORMED BY: [place] [address] PATHOLOGIST YARD CONDUCTOR MARK AVITIA M.D. Performed By: #### C BC, PTT, PT #### [address] Pathology Request for Lab Co rpon 09-11-2024 Pathology Request for Lab Farooq Normal [facility] Comment on above: Order Comment: GI SP ECJACQUELINEN Result Comment: See report. Scanned copy available in EMR. PERFORMED BY: [place] [address] PATHOLOGIST YARD CONDUCTOR CAT ARAGON M.D. Performed By: #### P ATH TO [facility] #### [address] Platelet mean volume Auto (B ld) [Entitic vol]Ordered By: Chas Dean on 09-11-2024 Platelet mean volume (Bld) [Entitic vol] Platelet mean volume [Entitic volume] in Blood by Automated count 6.6-10.1 [facility] Platelets Auto (Bld) [#/Vol] Ordered By: Chas Dean on 09-11-2024 Platelets (Bld) [#/Vol] Platelets [#/volume] in Blood by Automated count 150-450 [facility] Prothrombin Time INROrdered By: Chas Dean on 09-11-2024 INR Coag (PPP) [Relative time] 1.1 {INR} [facility] Comment on above: Result Comment: INR Therapeutic Range A) Pre- and Peroperative OAT started two weeks before surgery. NOT HIP SURGERY: 1.5 - 2.5 HIP SURGERY: 2 - 3 B) Primary and secondary prevention of venous THROMBOSIS: 2 - 3 C) Active venous thrombosis, pulmonary embolism and prevention of recurrent venous thrombosis: 2 - 3 D) Prevention of arterial thromboembolism including patients with mechanical heart valves: 3 - 4.5 Performed By: #### C BC, PTT, PT #### [address] [place] [address] [facility] INR Therapeutic Rang e A) Pre- and Peroperative OAT started two weeks before surgery. NOT HIP SURGERY: 1.5 - 2.5 HIP SURGERY: 2 - 3B) Primary and secondary prevention of venous THROMBOSIS: 2 - 3C) Active venous thrombosis, pulmonary embolismand prevention of recurrent venous thrombosis: 2 - 3D) Prevention of arterial thromboembolismincluding patients with mechanical heart valves: 3 - 4.5 PT Coag (PPP) [Time] 13.0 s High 9.0-12.9 [facility] Comment on above: Result Comment: A he matocrit value greater than 55% may lead to inaccurate results in coagulation testing. Patients having hematocrit values >55% require a special collection tube for coagulation studies. Please contact the laboratory at [phone] for redraw instructions. Performed By: #### C BC, PTT, PT #### [facility] [address] [place] [address] [facility] A hematocrit value g reater than 55% may lead to inaccurate results in coagulation testing. Patients having hematocrit values >55% require a special collection tube for coagulation studies. Please contact the laboratory at [phone] for redraw instructions. Prothrombin time (PT)Ordered By: Chas Dean on 09-11-2024 PT Coag (PPP) [Time] Prothrombin time (PT) High 9.0-12.9 [facility] Comment on above: A hematocrit value g reater than 55% may lead to inaccurate results in coagulation testing. Patients having hematocrit values >55% require a special collection tube for coagulation studies. Please contact the laboratory at [phone] for redraw instructions. RBC Auto (Bld) [#/Vol]Ordere d By: Chas Dean on 09-11-2024 RBC (Bld) [#/Vol] Erythrocytes [#/volu me] in Blood by Automated count 3.90-5.60 [facility] WBC Auto (Bld) [#/Vol]Ordere d By: Chas Dean on 09-11-2024 WBC (Bld) [#/Vol] Leukocytes [#/volume ] in Blood by Automated count 4.1-10.5 [facility] aPTT in Platelet poor plasma by Coagulation assayOrdered By: Chas Dean on 09-11-2024 aPTT Coag (PPP) [Time] Activated partial thromboplastin time (aPTT) in platelet poor plasma by coagulation a 25.1-36.5 [facility] Comment on above: A hematocrit value g reater than 55% may lead to inaccurate results in coagulation testing. Patients having hematocrit values >55% require a special collection tube for coagulation studies. Please contact the laboratory at [phone] for redraw instructions. aPTT Coag (PPP) [Time] 34.6 s 25.1-36.5 [facility] Comment on above: A hematocrit value g reater than 55% may lead to inaccurate results in coagulation testing. Patients having hematocrit values >55% require a special collection tube for coagulation studies. Please contact the laboratory at [phone] lung screeningon 08-07-19 CT lung screening [facility] Main [place] [address] [place] [address] CT Scan Report Signed Patient: Abhinav Felix MR#: [id number] : 1960 Acct:[id number] Age/Sex: 64 / M ADM Date: 08/06/24 Loc: [facility] Room: Type: [facility] Attending Dr: Kelechi Martin MD Copies to: Kelechi Martin MD Ordering Provider: Kelechi Martin MD Date of Service: 08/06/24 CT/CT lung screening: F17.200 - Nicotine dependence, unspecified, uncomplicated CT CHEST WITHOUT CONTRAST, LOW DOSE SCREENING: CLINICAL DATA: A 64-year old current smoker, smoking for 40 pack-years. COMPARISON: CT chest 08/07/2023 TECHNIQUE: Noncontrast axial CT scan images of the chest were obtained under the low dose screening CT protocol. Coronal and sagittal reconstructed images were also submitted. FINDINGS: Mediastinum : Suboptimal evaluation due to low-dose technique. Thoracic aorta appears normal in caliber. Pulmonary trunk appears nondilated. No pericardial effusion. No lymphadenopathy. The esophagus is grossly unremarkable. Lungs: No focal consolidation, pneumothorax or pleural effusion. Trachea and distal airways appear patent. Scattered ground glass/reticular changes similar to the prior study. Diffuse bronchial wall thickening. Emphysema. Stable 7 mm noncalcified pulmonary nodule left upper lobe series 2 image 102. No new or enlarging suspicious pulmonary nodules. Upper abdomen: No acute findings. Bony thorax and chest wall: Soft tissues surrounding the chest wall demonstrate no acute findings. Osseous structures demonstrate degenerative change. CT/CT lung screening IMPRESSION: NO NEW OR ENLARGING SUSPICIOUS PULMONARY NODULE. LUNG - RADS Version 1.0 Assessment: Category 2, Benign appearance or behavior. Management: Continue annual lung screening with LDCT in 12 months. Impression dictated by: Yannick Lockwood Jr., D.OSwapna08/06/2024 12:58 PM Dictation Location: RADIO-PC-23 Transcribed By: [facility] 08/06/24 1258 Dictated By: Yannick Lockwood Jr, DO 08/06/24 1255 Signed By: 08/06/24 1258 Normal [facility] ECG 12 Leadon 08-01-2024 ECG revealed normal sinus rhythm with sinus bradycardia, left axis deviation, voltage criteria for LVH, diffuse nonspecific ST and T changes, abnormal ECG [facility] Work Phone: Basophils Auto (Bld) [#/Vol] on 07-25-2024 Basophils (Bld) [#/Vol] Automated basophil count 0.0-0.1 [facility] Basophils/100 WBC Auto (Bld) on 07-25-2024 Basophils/100 WBC (Bld) Automated basophil % 0.2-2.0 [facility] Eosinophils/100 WBC Auto (Bl d)on 07-25-2024 Eosinophils/100 WBC (Bld) Automated eosinophil % 0.9-7.0 [facility] Erythrocyte distribution wid th Auto (RBC) [Ratio]on 07-25-2024 Erythrocyte distribution width (RBC) [Ratio] Erythrocyte distribution width [Ratio] by Automated count 11.0-15.0 [facility] Estimated glomerular filtrat ion rate (GFR) non- Americanon 07-25-2024 GFR/1.73 sq M.predicted among non-blacks MDRD (S/P/Bld) [Vol rate/Area] Estimated glomerular filtration rate (GFR) non- >=60 mL/min/1.73m 2 [facility] Hematocrit Auto (Bld) [Volum e fraction]on 07-25-2024 Hematocrit (Bld) [Volume fraction] Hematocrit [Volume Fraction] of Blood by Automated count 42.0-54.0 [facility] Hemoglobin [Mass/volume] in Bloodon 07-25-2024 Hemoglobin (Bld) [Mass/Vol] Hemoglobin [Mass/volume] in Blood 14.0-18.0 [facility] INR in Platelet poor plasma by Coagulation assayon 07-25-2024 INR Coag (PPP) [Relative time] INR in Platelet poor plasma by Coagulation assay [facility] Comment on above: DESIRED INR:2.0-3.0 CONDITIONS NOT LISTED BELOW2.5-3.5 FOR PROSTHETIC HEART VALVE REPLACEMENT2.5-3.5 RECURRENT THROMBOSIS Laboratory - Chemistry and C hemistry - challengeon 07-25-2024 Calcium [Mass/Vol] 8.9 mg/dL 8.5-10.1 [facility] Chloride [Moles/Vol] 105 mmol/L 98-107 [facility] CO2 [Moles/Vol] 29.2 mmol/L 21.0-32.[address] [facility] Creatinine [Mass/Vol] 1.05 mg/dL 0.70-1.30 [facility] GFR/1.73 sq M.predicted MDRD (S/P/Bld) [Vol rate/Area] mL/min/{1.73_m2} >=60 mL/min/1.73m 2 [facility] Glucose [Mass/Vol] 97 mg/dL 74-106 [facility] Potassium [Moles/Vol] 4.8 mmol/L 3.5-5.1 [facility] Sodium [Moles/Vol] 137 mmol/L 136-145 [facility] Urea nitrogen [Mass/Vol] 11.0 mg/dL 7.0-18.0 [facility] Urea nitrogen/Creatinine [Mass ratio] 10.5 mg/mg [facility] Laboratory - Hematology and Cell countson 07-25-2024 Immature granulocytes/100 WBC (Bld) 0.4 % 0.0-0.5 [facility] Leukocytes [#/volume] correc traci for nucleated erythrocytes in Blood by Automated counon 07-25-2024 WBC corrected for nucl RBC Auto (Bld) [#/Vol] Leukocytes [#/volume] corrected for nucleated erythrocytes in Blood by Automated coun 4.0-11.0 [facility] Lymphocytes Auto (Bld) [#/Vo l]on 07-25-2024 Lymphocytes (Bld) [#/Vol] Lymphocytes [#/volume] in Blood by Automated count 1.2-3.8 [facility] Lymphocytes/100 WBC Auto (Bl d)on 07-25-2024 Lymphocytes/100 WBC (Bld) Lymphocytes/100 leukocytes in Blood by Automated count 20.5-60.0 [facility] MCH Auto (RBC) [Entitic mass ]on 07-25-2024 MCH (RBC) [Entitic mass] MCH [Entitic mass] by Automated count 25.9-34.0 [facility] MCHC Auto (RBC) [Mass/Vol]on 07-25-2024 MCHC (RBC) [Mass/Vol] MCHC [Mass/volume] by Automated count 29.9-35.2 [facility] MCV Auto (RBC) [Entitic vol] on 07-25-2024 MCV (RBC) [Entitic vol] MCV [Entitic volume] by Automated count 80.0-94.0 [facility] Monocytes Auto (Bld) [#/Vol] on 07-25-2024 Monocytes (Bld) [#/Vol] Automated blood monocyte count High 0.3-0.8 [facility] Monocytes/100 WBC Auto (Bld) on 07-25-2024 Monocytes/100 WBC (Bld) Automated monocyte % High 1.7-12.0 [facility] Neutrophils Auto (Bld) [#/Vo l]on 07-25-2024 Neutrophils (Bld) [#/Vol] Neutrophils [#/volume] in Blood by Automated count 1.4-6.5 [facility] Neutrophils/100 WBC Auto (Bl d)on 07-25-2024 Neutrophils/100 WBC (Bld) Automated neutrophil % 43.0-75.0 [facility] No Panel Informationon 07-25 Eosinophils # (Auto) 0.2 10 3/uL 0.0-0.7 [facility] Immature Granulocyte # (Auto) 0.03 10 3/uL 0.00-0.03 [facility] Platelet mean volume Auto (B ld) [Entitic vol]on 07-25-2024 Platelet mean volume (Bld) [Entitic vol] Platelet mean volume [Entitic volume] in Blood by Automated count 9.5-13.5 [facility] Platelets Auto (Bld) [#/Vol] on 07-25-2024 Platelets (Bld) [#/Vol] Platelets [#/volume] in Blood by Automated count 150-450 [facility] Prothrombin time (PT)on PT Coag (PPP) [Time] Prothrombin time (PT) High 9.0-11.6 [facility] RBC Auto (Bld) [#/Vol]on RBC (Bld) [#/Vol] Erythrocytes [#/volu me] in Blood by Automated count 4.70-6.10 [facility] Serum or plasma anion gap de terminationon 07-25-2024 Anion gap [Moles/Vol] Serum or plasma anion gap determination [facility] XR chest 2V*on 06-14-2024 XR chest 2V* [facility] [place] [address] XRay Report Signed Patient: Abhinav Felix MR#: [id number] : 1960 Acct:[id number] Age/Sex: 63 / M ADM Date: 06/14/24 Loc: [facility] Room: Type: [facility] Attending Dr: Sandi Collazo APRN Copies to: Sandi Collazo APRN Ordering Provider: [...] Jaden Castro M.D.06/14/2024 9:47 AM Dictation Location: RADIO-PC-29 Transcribed By: KIANA 06/14/24946 Dictated By: Jaden Castro MD 06/14/24945 Signed By: 06/14/24946 Normal [facility] ECG 12 Leadon 01-04-2024 ECG revealed sinus r hythm with PACs and left axis deviation consistent with left anterior fascicular block [facility] Work Phone: Cholesterol in LDL Calc [Mas s/Vol]on 06-12-2023 Cholesterol in LDL [Mass/Vol] 54.0 mg/dL [facility] Comment on above: <100 mg/dl [id number] 0-129 mg/dl NEAR OR ABOVE [id number] mg/dl BORDERLINE [id number] mg/dl HIGH>190 mg/dl VERY HIGH Cholesterol in VLDL Calc [Ma ss/Vol]on 06-12-2023 Cholesterol in VLDL [Mass/Vol] 48.0 mg/dL [facility] Estimated glomerular filtrat ion rate (GFR) non- Americanon 06-12-2023 GFR/1.73 sq M.predicted among non-blacks MDRD (S/P/Bld) [Vol rate/Area] mL/min/{1.73_m2} >=60 [facility] Globulin Calc (S) [Mass/Vol] on 06-12-2023 Globulin (S) [Mass/Vol] 4.4 g/dL [facility] Laboratory - Chemistry and C hemistry - challengeon 06-12-2023 Albumin [Mass/Vol] 3.3 g/dL 3.4-5.0 [facility] ALP [Catalytic activity/Vol] 93 U/L 46-116 [facility] ALT [Catalytic activity/Vol] 28 U/L 16-63 [facility] AST [Catalytic activity/Vol] 18 U/L 15-37 [facility] Bilirubin [Mass/Vol] 0.6 mg/dL 0.2-1.0 [facility] Calcium [Mass/Vol] 8.6 mg/dL 8.5-10.1 [facility] Chloride [Moles/Vol] 103 mmol/L 98-107 [facility] Cholesterol [Mass/Vol] 135 mg/dL <=200 [facility] Cholesterol in HDL [Mass/Vol] 33 mg/dL 40-60 [facility] Comment on above: > or =60 mg/dl - LOW CARDIOVASCULAR RISK<40 mg/dl - HIGH CARDIOVASCULAR RISK CO2 [Moles/Vol] 28.4 mmol/L 21.0-32.[address] [facility] Creatinine [Mass/Vol] 0.93 mg/dL 0.70-1.30 [facility] GFR/1.73 sq M.predicted MDRD (S/P/Bld) [Vol rate/Area] mL/min/{1.73_m2} >=60 [facility] Glucose [Mass/Vol] 85 mg/dL 74-106 [facility] Potassium [Moles/Vol] 4.3 mmol/L 3.5-5.1 [facility] Protein [Mass/Vol] 7.7 g/dL 6.4-8.2 [facility] Sodium [Moles/Vol] 140 mmol/L 136-145 [facility] Triglyceride [Mass/Vol] 240 mg/dL <=150 [facility] Urea nitrogen [Mass/Vol] 11.0 mg/dL 7.0-18.0 [facility] Urea nitrogen/Creatinine [Mass ratio] 11.8 mg/mg [facility] Serum or plasma albumin/glob ulin mass ratioon 06-12-2023 Albumin/Globulin [Mass ratio] 0.8 {ratio} [facility] Serum or plasma anion gap de terminationon 06-12-2023 Anion gap [Moles/Vol] 12.9 mmol/L [facility] Serum or plasma total choles terol/high density lipoprotein (HDL) cholesterol mass juan miguel 06-12-2023 Cholesterol.total/C holesterol in HDL [Mass ratio] 4.1 {ratio} [facility] Comment on above: 3.3 - 4.4 LOW RISK4. 4 - 7.1 AVERAGE RISK7.1 - 11.0 MODERATE RISK>11.0 HIGH RISK Office Visit (Cardiology)on 12-12-2022 Follow-up visit Diagnoses/Problems [...] Weight Tips; Status:Complete - Retrospective Authorization; Done: [id number] Some eating tips that can help you lose weight.; Status:Complete - Retrospective Authorization; Done: [id number] Paroxysmal atrial fibrillation Renew: Multaq 400 MG Oral Tablet; TAKE 1 TABLET TWICE DAILY, WITH MORNING AND EVENING MEAL IO EKG Electrocardiogram- 12 Lead; Status:Complete; Done: [id number] Renew: Nebivolol HCl - 10 MG Oral [...] we can help. You may also call [phone] for free resources and assistance.; Status:Complete - Retrospective Authorization; Done: [id number] Tobacco Use Screening; Status:Complete; Done: [id number] Patient Instructions Please bring all medicines, vitamins, [...] Vital Signs (more content not included)... Normal [employer] Tobacco Screening.on 023 Fall risk assessment b) One or more falls in the last year [facility] [employer] 250 DO Work Phone: Tobacco use status [facility] a) Yes [facility] [employer] 250 DO Work Phone: Tobacco Screening. Yes [facility] [employer] 250 DO Work Phone: CBC AUTO DIFFon 09-04-2022 BASO # 0.1 103/ul Normal 0.0-0.1 [facility] Comment on above: Performed By: #### P SASC #### [facility] [address] [place] [address] Dr. Nabil Che Basophils/100 WBC (Bld) 0.9 % Normal 0.2-2.0 [facility] Comment on above: Performed By: #### P SASC #### [facility] [address] [place] [address] Dr. Nabil Che EO # 0.3 103/ul Normal 0.0-0.7 [facility] Comment on above: Performed By: #### P SASC #### [facility] [address] [place] [address] Dr. Nabil Che Eosinophils/100 WBC (Bld) 3.3 % Normal 0.9-7.0 [facility] Comment on above: Performed By: #### P SASC #### [facility] [address] [place] [address] Dr. Nabil Che Erythrocyte distribution width (RBC) [Ratio] 13.2 % Normal 11.0-15.0 [facility] Comment on above: Performed By: #### P SASC #### [facility] [address] [place] [address] Dr. Nabil Che Hematocrit (Bld) [Volume fraction] 51.1 % Normal 42.0-54.0 [facility] Comment on above: Performed By: #### P SASC #### [facility] [address] [place] [address] Dr. Nabil Che Hemoglobin (Bld) [Mass/Vol] 17.8 g/dL Normal 14.0-18.0 [facility] Comment on above: Performed By: #### P SASC #### [facility] [address] [place] [address] Dr. Nabil Che IG # 0.07 10e3/ul Critically high 0.00-0.03 [facility] Comment on above: Performed By: #### P SASC #### [facility] [address] [place] [address] Dr. Nabil Che IG % 0.7 % Critically high 0.0-0.5 [facility] Comment on above: Performed By: #### P SASC #### [facility] [address] [place] [address] Dr. Nabil Che LYMPH # 2.1 103/ul Normal 1.2-3.8 [facility] Comment on above: Performed By: #### P SASC #### [facility] [address] [place] [address] Dr. Nabil Che Lymphocytes/100 WBC (Bld) 21.2 % Normal 20.5-60.0 [facility] Comment on above: Performed By: #### P SASC #### [facility] [address] [place] [address] Dr. Nabil Che MANUAL DIFF REQ NO Normal [facility] Comment on above: Performed By: #### P SASC #### [facility] [address] [place] [address] Dr. Nabil Che MCH (RBC) [Entitic mass] 31.5 pg Normal 25.9-34.0 [facility] Comment on above: Performed By: #### P SASC #### [facility] [address] [place] [address] Dr. Nabil Che MCHC (RBC) [Mass/Vol] 34.8 g/dL Normal 29.9-35.2 [facility] Comment on above: Performed By: #### P SASC #### [facility] [address] [place] [address] Dr. Nabil Che MCV (RBC) [Entitic vol] 90.4 fL Normal 80.0-94.0 [facility] Comment on above: Performed By: #### P SASC #### [facility] [address] [place] [address] Dr. Nabil Che MONO # 1.2 103/ul Critically high 0.3-0.8 [facility] Comment on above: Performed By: #### P SASC #### [facility] [address] [place] [address] Dr. Nabil Che Monocytes/100 WBC (Bld) 12.1 % Critically high 1.7-12.0 [facility] Comment on above: Performed By: #### P SASC #### [facility] [address] [place] [address] Dr. Nabil Che NEUT # 6.0 103/ul Normal 1.4-6.5 [facility] Comment on above: Performed By: #### P SASC #### [facility] [address] [place] [address] Dr. Nabil Che Neutrophils/100 WBC (Bld) 61.8 % Normal 43.0-75.0 [facility] Comment on above: Performed By: #### P SASC #### [facility] [address] [place] [address] Dr. Nabil Che Platelet mean volume (Bld) [Entitic vol] 10.3 fL Normal 9.5-13.5 [facility] Comment on above: Performed By: #### P SASC #### [facility] [address] [address] [address] Nabil Che PLT 203 103/ul Normal 150-450 [facility] Comment on above: Performed By: #### P SASC #### [facility] [address] [address] [address] Nabil Che RBC 5.65 106/ul Normal 4.70-6.10 [facility] Comment on above: Performed By: #### P SASC #### [facility] [address] [address] [address] Nabil Che WBC 9.8 103/ul Normal 4.0-11.0 [facility] Comment on above: Performed By: #### P SASC #### [facility] [address] [place] [address] Dr. Nabil Che LIPID PROFILEon 09-04-2022 CHOL-HDL RATIO NORM SEE BELOW Normal [facility] Comment on above: Result Comment: 3.3 - 4.4 LOW RISK 4.4 - 7.1 AVERAGE RISK 7.1 - 11.0 MODERATE RISK >11.0 HIGH RISK Performed By: #### L IPID, CMP #### [facility] [address] [place] [address] Dr. Nabil Che Cholesterol [Mass/Vol] 231 mg/dL Critically high <=200 [facility] Comment on above: Performed By: #### L IPID, CMP #### [facility] [address] [place] [address] Dr. Nabil Che Cholesterol in HDL [Mass/Vol] 37 mg/dL Critically low 40-60 [facility] Comment on above: Performed By: #### L IPID, CMP #### [facility] [address] [place] [address] Dr. Nabil Che Cholesterol in LDL [Mass/Vol] 137.0 mg/dL Normal [facility] Comment on above: Performed By: #### L IPID, CMP #### [facility] [address] [place] [address] Dr. Nabil Che Cholesterol.total/C holesterol in HDL [Mass ratio] 6.2 {ratio} Normal [facility] Comment on above: Performed By: #### L IPID, CMP #### [facility] [address] [place] [address] Dr. Nabil Che HDL NORMAL > or = 60 mg/dl - LO W CARDIOVASCULAR RISK <40 mg/dl - HIGH CARDIOVASCULAR RISK Normal [facility] Comment on above: Performed By: #### L IPID, CMP #### [facility] [address] [place] [address] Dr. Nabil Che LDL CALC NORMAL SEE BELOW Normal [facility] Comment on above: Result Comment: <100 mg/dl OPTIMAL 100 - 129 mg/dl NEAR OR ABOVE OPTIMAL 130 - 159 mg/dl BORDERLINE HIGH 160 - 189 mg/dl HIGH >190 mg/dl VERY HIGH Performed By: #### L IPID, CMP #### [facility] [address] [place] [address] Dr. Nabil Che Triglyceride [Mass/Vol] 285 mg/dL Critically high <=150 [facility] Comment on above: Performed By: #### L IPID, CMP #### [facility] [address] [place] [address] Dr. Nabil Che VLDL CALC 57.0 mg/dL Normal [facility] Comment on above: Performed By: #### L IPID, CMP #### [facility] [address] [place] [address] Dr. Nabil Che PROF 14(COMP METB)on 023 Albumin [Mass/Vol] 3.7 g/dL Normal 3.4-5.0 [facility] Comment on above: Performed By: #### L IPID, CMP #### [facility] [address] [place] [address] Dr. Nabil Che Albumin/Globulin [Mass ratio] 0.8 {ratio} Normal [facility] Comment on above: Performed By: #### L IPID, CMP #### [facility] [address] [place] [address] Dr. Nabil Che ALP [Catalytic activity/Vol] 96 U/L Normal 46-116 [facility] Comment on above: Performed By: #### L IPID, CMP #### [facility] [address] [address] [address] Nabil Che ALT [Catalytic activity/Vol] 42 U/L Normal 16-63 [facility] Comment on above: Performed By: #### L IPID, CMP #### [facility] [address] [place] [address] Dr. Nabil Che Anion gap [Moles/Vol] 11.9 mmol/L Normal [facility] Comment on above: Performed By: #### L IPID, CMP #### [facility] [address] [place] [address] Dr. Nabil Che AST [Catalytic activity/Vol] 23 U/L Normal 15-37 [facility] Comment on above: Performed By: #### L IPID, CMP #### [facility] [address] [place] [address] Dr. aNbil Che Bilirubin [Mass/Vol] 0.5 mg/dL Normal 0.2-1.0 [facility] Comment on above: Performed By: #### L IPID, CMP #### [facility] [address] [place] [address] Dr. Nabil Che Calcium [Mass/Vol] 9.1 mg/dL Normal 8.5-10.1 [facility] Comment on above: Performed By: #### L IPID, CMP #### [facility] [address] [place] [address] Dr. Nabil Che Chloride [Moles/Vol] 104 mmol/L Normal 98-107 [facility] Comment on above: Performed By: #### L IPID, CMP #### [facility] [address] [place] [address] Dr. Nabil Che CO2 [Moles/Vol] 29.7 mmol/L Normal 21.0-32.0 [facility] Comment on above: Performed By: #### L IPID, CMP #### [facility] [address] [place] [address] Dr. Nabil Che Creatinine [Mass/Vol] 1.07 mg/dL Normal 0.70-1.30 [facility] Comment on above: Performed By: #### L IPID, CMP #### [facility] [address] [address] [address] Nabil Che EGFR-AF CITIZ[place] >60 Normal >=60 [facility] Comment on above: Performed By: #### L IPID, CMP #### [facility] [address] [address] [address] Nabil Che EGFR-NON AF CITIZ[place] OF [place] >60 Normal >=60 [facility] Comment on above: Performed By: #### L IPID, CMP #### [facility] [address] [address] [address] Nabil Che Globulin (S) [Mass/Vol] 4.8 g/dL Normal [facility] Comment on above: Performed By: #### L IPID, CMP #### [facility] [address] [address] [address] Nabil Che Glucose [Mass/Vol] 106 mg/dL Normal 74-106 [facility] Comment on above: Performed By: #### L IPID, CMP #### [facility] [address] [address] [address] Nabil Che Potassium [Moles/Vol] 4.6 mmol/L Normal 3.5-5.1 [facility] Comment on above: Performed By: #### L IPID, CMP #### [facility] [address] [address] [address] Nabil Che Protein [Mass/Vol] 8.5 g/dL Critically high 6.4-8.2 [facility] Comment on above: Performed By: #### L IPID, CMP #### [facility] [address] [address] [address] Nabil Che Sodium [Moles/Vol] 141 mmol/L Normal 136-145 [facility] Comment on above: Performed By: #### L IPID, CMP #### [facility] [address] [address] [address] Nabil Che Urea nitrogen [Mass/Vol] 13.0 mg/dL Normal 7.0-18.0 [facility] Comment on above: Performed By: #### L IPID, CMP #### [facility] [address] [place] [address] Dr. Nabil Che Urea nitrogen/Creatinine [Mass ratio] 12.1 mg/mg Normal [facility] Comment on above: Performed By: #### L IPID, CMP #### [facility] [address] [place] [address] Dr. Nabil Che PROTIMEon 09-04-2022 INR Coag (PPP) [Relative time] 3.32 {INR} Normal [facility] Comment on above: Performed By: #### P T #### [facility] [address] [place] [address] Dr. Nabil Che INR GUIDELINES SEE BELOW Normal [facility] Comment on above: Result Comment: LETY RED INR: 2.0 - 3.0 CONDITIONS NOT LISTED BELOW 2.5 - 3.5 FOR PROSTHETIC HEART VALVE REPLACEMENT 2.5 - 3.5 RECURRENT THROMBOSIS Performed By: #### P T #### [facility] [address] [place] [address] Dr. Nabil Che PT Coag (PPP) [Time] 32.9 s Critically high 9.0-11.6 [facility] Comment on above: Performed By: #### P T #### [facility] [address] [place] [address] Dr. Nabil Che [facility] 07-30-2022 Lab Reports [id number]#[id number]:12 7 Normal [facility] PROTIMEon 07-27-2022 INR Coag (PPP) [Relative time] 2.82 {INR} Normal [facility] Comment on above: Performed By: #### P T #### [facility] [address] [place] [address] Dr. Nabil Che INR GUIDELINES SEE BELOW Normal [facility] Comment on above: Result Comment: LETY RED INR: 2.0 - 3.0 CONDITIONS NOT LISTED BELOW 2.5 - 3.5 FOR PROSTHETIC HEART VALVE REPLACEMENT 2.5 - 3.5 RECURRENT THROMBOSIS Performed By: #### P T #### [facility] [address] [place] [address] Dr. Nabil Che PT Coag (PPP) [Time] 28.2 s Critically high 9.0-11.6 [facility] Comment on above: Performed By: #### P T #### [facility] [address] [place] [address] Dr. Nabil Che CBC AUTO DIFFon 06-07-2022 BASO # 0.1 103/ul Normal 0.0-0.1 [facility] Comment on above: Performed By: #### P SASC #### [facility] [address] [place] [address] Dr. Nabil Che Basophils/100 WBC (Bld) 1.1 % Normal 0.2-2.0 [facility] Comment on above: Performed By: #### P SASC #### [facility] [address] [place] [address] Dr. Nabil Che EO # 0.4 103/ul Normal 0.0-0.7 [facility] Comment on above: Performed By: #### P SASC #### [facility] [address] [place] [address] Dr. Nabil Che Eosinophils/100 WBC (Bld) 3.7 % Normal 0.9-7.0 [facility] Comment on above: Performed By: #### P SASC #### [facility] [address] [place] [address] Dr. Nabil Che Erythrocyte distribution width (RBC) [Ratio] 13.2 % Normal 11.0-15.0 [facility] Comment on above: Performed By: #### P SASC #### [facility] [address] [place] [address] Dr. Nabil Che Hematocrit (Bld) [Volume fraction] 49.2 % Normal 42.0-54.0 [facility] Comment on above: Performed By: #### P SASC #### [facility] [address] [place] [address] Dr. Nabil Che Hemoglobin (Bld) [Mass/Vol] 17.3 g/dL Normal 14.0-18.0 [facility] Comment on above: Performed By: #### P SASC #### [facility] [address] [address] [address] Nabil Che IG # 0.04 10e3/ul Critically high 0.00-0.03 [facility] Comment on above: Performed By: #### P SASC #### [facility] [address] [address] [address] Nabil Che IG % 0.4 % Normal 0.0-0.5 [facility] Comment on above: Performed By: #### P SASC #### [facility] [address] [place] [address] Dr. Nabil Che LYMPH # 2.5 103/ul Normal 1.2-3.8 [facility] Comment on above: Performed By: #### P SASC #### [facility] [address] [place] [address] Dr. Nabil Che Lymphocytes/100 WBC (Bld) 26.3 % Normal 20.5-60.0 [facility] Comment on above: Performed By: #### P SASC #### [facility] [address] [place] [address] Dr. Nabil Che MANUAL DIFF REQ NO Normal [facility] Comment on above: Performed By: #### P SASC #### [facility] [address] [place] [address] Dr. Nabil Che MCH (RBC) [Entitic mass] 31.2 pg Normal 25.9-34.0 [facility] Comment on above: Performed By: #### P SASC #### [facility] [address] [place] [address] Dr. Nabil Che MCHC (RBC) [Mass/Vol] 35.2 g/dL Normal 29.9-35.2 [facility] Comment on above: Performed By: #### P SASC #### [facility] [address] [place] [address] Dr. Nabil Che MCV (RBC) [Entitic vol] 88.6 fL Normal 80.0-94.0 [facility] Comment on above: Performed By: #### P SASC #### [facility] [address] [address] [address] Nabil Che MONO # 1.3 103/ul Critically high 0.3-0.8 [facility] Comment on above: Performed By: #### P SASC #### [facility] [address] [place] [address] Dr. Nabil Che Monocytes/100 WBC (Bld) 13.3 % Critically high 1.7-12.0 [facility] Comment on above: Performed By: #### P SASC #### [facility] [address] [place] [address] Dr. Nabil Che NEUT # 5.2 103/ul Normal 1.4-6.5 [facility] Comment on above: Performed By: #### P SASC #### [facility] [address] [place] [address] Dr. Nabil Che Neutrophils/100 WBC (Bld) 55.2 % Normal 43.0-75.0 [facility] Comment on above: Performed By: #### P SASC #### [facility] [address] [place] [address] Dr. Nabil Che Platelet mean volume (Bld) [Entitic vol] 10.4 fL Normal 9.5-13.5 [facility] Comment on above: Performed By: #### P SASC #### [facility] [address] [place] [address] Dr. Nabil Che PLT 199 103/ul Normal 150-450 [facility] Comment on above: Performed By: #### P SASC #### [facility] [address] [place] [address] Dr. Nabil Che RBC 5.55 106/ul Normal 4.70-6.10 [facility] Comment on above: Performed By: #### P SASC #### [facility] [address] [place] [address] Dr. Nabil Che WBC 9.4 103/ul Normal 4.0-11.0 [facility] Comment on above: Performed By: #### P SASC #### [facility] [address] [place] [address] Dr. Nabil Che Office Visit (Cardiology)on 06-07-2022 [...] Weight Tips; Status:Complete - Retrospective Authorization; Done: [id number] Some eating tips that can help you lose weight.; Status:Complete - Retrospective Authorization; Done: [id number] Paroxysmal atrial fibrillation IO EKG Electrocardiogram- 12 Lead; Status:Complete; Done: [id number] SocHx: Current every day smoker You need to stop smoking. Though it is not easy, more than half of all adult smokers have quit. We encourage you to write down all the reasons you should quit smoking and set a quit date for yourself. Ask us how we can help. You may also call 7-728-XOBKNOW for free resources and assistance.; Status:Complete - Retrospective Authorization; Done: [id number] Tobacco Use Screening; Status:Complete; Done: [id number] Patient Instructions Please bring all medicines, vitamins, [...] any palpitations since he started taking magnesium [id number]-dqsspcp. He is on Multaq and his rhythm [...] 10 MG Oral TabletTake 1 tablet daily [place] 3 1000 MG Oral CapsuleTAKE 2 CAPSULE [...] negative for complaint. Vitals Vital Signs Recorded: [id number] 09:01AM Heart Rate52, L Radial Twacornf610, LUE, Sitting Vcfijtduk11, LUE, Sitting Height5 ft 11 in Cofapz219 lb BMI Qfokfqxole09.75 kg/m2 BSA Calculated2.29 Tobacco Usea) Yes Patient encouraged to stop using tobacco productsYes PHQ-2 #1. Over the last 2 weeks have you felt down, depressed or hopeless? (If yes, answer PHQ-9 below)No PHQ-2 #2. Ove (more content not included)... Normal [employer] PROF CHEM 8 (BAS METB)on Anion gap [Moles/Vol] 12.2 mmol/L Normal [facility] Comment on above: Performed By: #### P SASC #### [facility] [address] [address] [address] Nabil Che Calcium [Mass/Vol] 9.1 mg/dL Normal 8.5-10.1 [facility] Comment on above: Performed By: #### P SASC #### [facility] [address] [address] [address] Nabil Che Chloride [Moles/Vol] 103 mmol/L Normal 98-107 [facility] Comment on above: Performed By: #### P SASC #### [facility] [address] [address] [address] Nabil Che CO2 [Moles/Vol] 29.0 mmol/L Normal 21.0-32.0 [facility] Comment on above: Performed By: #### P SASC #### [facility] [address] [address] [address] Nabil Che Creatinine [Mass/Vol] 1.01 mg/dL Normal 0.70-1.30 [facility] Comment on above: Performed By: #### P SASC #### [facility] [address] [address] [address] Nabil Che EGFR-AF [place] >60 Normal >=60 [facility] Comment on above: Performed By: #### P SASC #### [facility] [address] [address] [address] Nabil Che EGFR-NON AF [place] >60 Normal >=60 [facility] Comment on above: Performed By: #### P SASC #### [facility] [address] [address] [address] Nabil Che Glucose [Mass/Vol] 113 mg/dL Critically high 74-106 [facility] Comment on above: Performed By: #### P SASC #### [facility] [address] [address] [address] Nabil Che Potassium [Moles/Vol] 4.2 mmol/L Normal 3.5-5.1 [facility] Comment on above: Performed By: #### P SASC #### [facility] [address] [address] [address] Nabil Che Sodium [Moles/Vol] 140 mmol/L Normal 136-145 [facility] Comment on above: Performed By: #### P SASC #### [facility] [address] [address] [address] Nabil Che Urea nitrogen [Mass/Vol] 9.0 mg/dL Normal 7.0-18.0 [facility] Comment on above: Performed By: #### P SASC #### [facility] [address] [address] [address] Nabil Che Urea nitrogen/Creatinine [Mass ratio] 8.9 mg/mg Normal [facility] Comment on above: Performed By: #### P SASC #### [facility] [address] [address] [address] Nabil Che Tobacco Screening.on 023 Adult depression screening assessment No [facility] 250 DO Work Phone: Tobacco use status [facility] a) Yes [facility] 250 DO Work Phone: Tobacco Screening. Yes [facility] 250 DO Work Phone: [facility] Report[facility] 05-27-2022 Lab Reports [id number]#1.00CD:12 7 Normal [facility] PROTIMEon 05-24-2022 INR Coag (PPP) [Relative time] 2.87 {INR} Normal [facility] Comment on above: Performed By: #### P T #### [facility] [address] [place] [address] Dr. Nabil Che INR GUIDELINES SEE BELOW Normal [facility] Comment on above: Result Comment: LETY RED INR: 2.0 - 3.0 CONDITIONS NOT LISTED BELOW 2.5 - 3.5 FOR PROSTHETIC HEART VALVE REPLACEMENT 2.5 - 3.5 RECURRENT THROMBOSIS Performed By: #### P T #### [facility] [address] [place] [address] Dr. Nabil Che PT Coag (PPP) [Time] 28.7 s Critically high 9.0-11.6 [facility] Comment on above: Performed By: #### P T #### [facility] [address] [place] [address] Dr. Nabil Che Lab Report[facility] 04-29-2022 Lab Reports [id number]:12 7 Normal [facility] PROTIMEon 04-27-2022 INR Coag (PPP) [Relative time] 2.17 {INR} Normal [facility] Comment on above: Performed By: #### P SASC #### [facility] [address] [place] [address] Dr. Nabil Che INR GUIDELINES SEE BELOW Normal [facility] Comment on above: Result Comment: LETY RED INR: 2.0 - 3.0 CONDITIONS NOT LISTED BELOW 2.5 - 3.5 FOR PROSTHETIC HEART VALVE REPLACEMENT 2.5 - 3.5 RECURRENT THROMBOSIS Performed By: #### P SASC #### [facility] [address] [place] [address] Dr. Nabil Che PT Coag (PPP) [Time] 22.3 s Critically high 9.0-11.6 [facility] Comment on above: Performed By: #### P SASC #### [facility] [address] [place] [address] Dr. Nabil Che Lab Report[facility] 04-10-2022 Lab Reports [id number]#[id number]:12 7 Normal [facility] PROTIMEon 04-07-2022 INR Coag (PPP) [Relative time] 1.09 {INR} Normal [facility] Comment on above: Performed By: #### P T #### [facility] [address] [place] [address] Dr. Nabil Che INR GUIDELINES SEE BELOW Normal [facility] Comment on above: Result Comment: LETY RED INR: 2.0 - 3.0 CONDITIONS NOT LISTED BELOW 2.5 - 3.5 FOR PROSTHETIC HEART VALVE REPLACEMENT 2.5 - 3.5 RECURRENT THROMBOSIS Performed By: #### P T #### [facility] [address] [place] [address] Dr. Nabil Che PT Coag (PPP) [Time] 11.7 s Critically high 9.0-11.6 [facility] Comment on above: Performed By: #### P T #### [facility] [address] [place] [address] Dr. Nabil Che [facility] 03-28-2022 Lab Reports [id number]:12 7 Normal [facility] PROTIMEon 03-27-2022 INR Coag (PPP) [Relative time] 1.11 {INR} Normal [facility] Comment on above: Performed By: #### P SASC #### [facility] [address] [place] [address] Dr. Nabil Che INR GUIDELINES SEE BELOW Normal [facility] Comment on above: Result Comment: LETY RED INR: 2.0 - 3.0 CONDITIONS NOT LISTED BELOW 2.5 - 3.5 FOR PROSTHETIC HEART VALVE REPLACEMENT 2.5 - 3.5 RECURRENT THROMBOSIS Performed By: #### P SASC #### [facility] [address] [address] [address] Nabil Che PT Coag (PPP) [Time] 11.9 s Critically high 9.0-11.6 [facility] Comment on above: Performed By: #### P SASC #### [facility] [address] [place] [address] Dr. Nabil Che Lab Report[facility] 02-23-2022 Lab Reports [id number]#[id number]:12 7 Normal [facility] PROTIMEon 02-22-2022 INR Coag (PPP) [Relative time] 1.84 {INR} Normal [facility] Comment on above: Performed By: #### P T #### [facility] [address] [place] [address] Dr. Nabil Che INR GUIDELINES SEE BELOW Normal [facility] Comment on above: Result Comment: LETY RED INR: 2.0 - 3.0 CONDITIONS NOT LISTED BELOW 2.5 - 3.5 FOR PROSTHETIC HEART VALVE REPLACEMENT 2.5 - 3.5 RECURRENT THROMBOSIS Performed By: #### P T #### [facility] [address] [place] [address] Dr. Nabil Che PT Coag (PPP) [Time] 19.1 s Critically high 9.0-11.6 [facility] Comment on above: Performed By: #### P T #### [facility] [address] [place] [address] Dr. Nabil Che [facility] 01-26-2022 Lab Reports [id number]#1.00CD:12 7 Normal [facility] PROTIMEon 01-25-2022 INR Coag (PPP) [Relative time] 1.91 {INR} Normal [facility] Comment on above: Performed By: #### P SASC #### [facility] [address] [place] [address] Dr. Nabil Che INR GUIDELINES SEE BELOW Normal [facility] Comment on above: Result Comment: LETY RED INR: 2.0 - 3.0 CONDITIONS NOT LISTED BELOW 2.5 - 3.5 FOR PROSTHETIC HEART VALVE REPLACEMENT 2.5 - 3.5 RECURRENT THROMBOSIS Performed By: #### P SASC #### [facility] [address] [place] [address] Dr. Nabil Che PT Coag (PPP) [Time] 19.8 s Critically high 9.0-11.6 [facility] Comment on above: Performed By: #### P SASC #### [facility] [address] [place] [address] Dr. Nabil Che Consultation Noteon 12-07-19 22 Consultation Note [id number]:127 Normal [facility] Tobacco Screening.on 022 Adult depression screening assessment No [facility] 250 DO Work Phone: Tobacco use status [facility]PH[facility] a) Yes [facility] 250 DO Work Phone: Tobacco Screening. Yes [facility] 250 DO Work Phone: [facility] Report[facility] 11-22-2021 Lab Reports [id number]:12 7 Normal [facility] CBC AUTO DIFFon 11-21-2021 BASO # 0.1 103/ul Normal 0.0-0.1 [facility] Comment on above: Performed By: #### C BC #### [facility] [address] [place] [address] Dr. Nabil Che Basophils/100 WBC (Bld) 0.8 % Normal 0.2-2.0 [facility] Comment on above: Performed By: #### C BC #### [facility] [address] [place] [address] Dr. Nabil Che EO # 0.3 103/ul Normal 0.0-0.7 [facility] Comment on above: Performed By: #### C BC #### [facility] [address] [place] [address] Dr. Nabil Che Eosinophils/100 WBC (Bld) 3.2 % Normal 0.9-7.0 [facility] Comment on above: Performed By: #### C BC #### [facility] [address] [place] [address] Dr. Nabil Che Erythrocyte distribution width (RBC) [Ratio] 13.1 % Normal 11.0-15.0 [facility] Comment on above: Performed By: #### C BC #### [facility] [address] [place] [address] Dr. Nabil Che Hematocrit (Bld) [Volume fraction] 46.8 % Normal 42.0-54.0 [facility] Comment on above: Performed By: #### C BC #### [facility] [address] [place] [address] Dr. Nabil Che Hemoglobin (Bld) [Mass/Vol] 16.4 g/dL Normal 14.0-18.0 [facility] Comment on above: Performed By: #### C BC #### [facility] [address] [place] [address] Dr. Nabil Che IG # 0.04 10e3/ul Critically high 0.00-0.03 [facility] Comment on above: Performed By: #### C BC #### [facility] [address] [place] [address] Dr. Nabil Che IG % 0.4 % Normal 0.0-0.5 [facility] Comment on above: Performed By: #### C BC #### [facility] [address] [place] [address] Dr. Nabil Che LYMPH # 2.8 103/ul Normal 1.2-3.8 [facility] Comment on above: Performed By: #### C BC #### [facility] [address] [place] [address] Dr. Nabil Che Lymphocytes/100 WBC (Bld) 29.6 % Normal 20.5-60.0 [facility] Comment on above: Performed By: #### C BC #### [facility] [address] [place] [address] Dr. Nabil Che MANUAL DIFF REQ NO Normal [facility] Comment on above: Performed By: #### C BC #### [facility] [address] [place] [place] [address] Dr. Nabil Che MCH (RBC) [Entitic mass] 31.3 pg Normal 25.9-34.0 [facility] Comment on above: Performed By: #### C BC #### [facility] [address] [place] [address] Dr. Nabil Che MCHC (RBC) [Mass/Vol] 35.0 g/dL Normal 29.9-35.2 [facility] Comment on above: Performed By: #### C BC #### [facility] [address] [place] [address] Dr. Nabil Che MCV (RBC) [Entitic vol] 89.3 fL Normal 80.0-94.0 [facility] Comment on above: Performed By: #### C BC #### [facility] [address] [place] [address] Dr. Nabil Che MONO # 1.4 103/ul Critically high 0.3-0.8 [facility] Comment on above: Performed By: #### C BC #### [facility] [address] [place] [address] Dr. Nabil Che Monocytes/100 WBC (Bld) 14.5 % Critically high 1.7-12.0 [facility] Comment on above: Performed By: #### C BC #### [facility] [address] [place] [address] Dr. Nabil Che NEUT # 4.9 103/ul Normal 1.4-6.5 [facility] Comment on above: Performed By: #### C BC #### [facility] [address] [place] [address] Dr. Nabil Che Neutrophils/100 WBC (Bld) 51.5 % Normal 43.0-75.0 [facility] Comment on above: Performed By: #### C BC #### [facility] [address] [place] [address] Dr. Nabil Che Platelet mean volume (Bld) [Entitic vol] 10.6 fL Normal 9.5-13.5 [facility] Comment on above: Performed By: #### C BC #### [facility] [address] [place] [address] Dr. Nabil Che PLT 173 103/ul Normal 150-450 [facility] Comment on above: Performed By: #### C BC #### [facility] [address] [place] [address] Dr. Nabil Che RBC 5.24 106/ul Normal 4.70-6.10 [facility] Comment on above: Performed By: #### C BC #### [facility] [address] [place] [address] Dr. Nabil Che WBC 9.4 103/ul Normal 4.0-11.0 [facility] Comment on above: Performed By: #### C BC #### [facility] [address] [place] [address] Dr. Nabil Che PROF CHEM 8 (BAS METB)on Anion gap [Moles/Vol] 11.7 mmol/L Normal [facility] Comment on above: Performed By: #### B MP #### [facility] [address] [place] [address] Dr. Nabil Che Calcium [Mass/Vol] 8.1 mg/dL Critically low 8.5-10.1 [facility] Comment on above: Performed By: #### B MP #### [facility] [address] [place] [address] Dr. Nabil Che Chloride [Moles/Vol] 103 mmol/L Normal 98-107 [facility] Comment on above: Performed By: #### B MP #### [facility] [address] [place] [address] Dr. Nabil Che CO2 [Moles/Vol] 28.1 mmol/L Normal 21.0-32.0 [facility] Comment on above: Performed By: #### B MP #### [facility] [address] [place] [address] Dr. Nabil Che Creatinine [Mass/Vol] 1.34 mg/dL Critically high 0.70-1.30 [facility] Comment on above: Performed By: #### B MP #### [facility] [address] [place] [address] Dr. Nabil Che EGFR-AF CITIZ[place] >60 Normal >=60 [facility] Comment on above: Performed By: #### B MP #### [facility] [address] [address] [address] Nabil Che EGFR-NON AF CITIZEN OF [place] 54 mL/min/1.73m2 Critically low >=60 [facility] Comment on above: Performed By: #### B MP #### [facility] [address] [place] [address] Dr. Nabil Che Glucose [Mass/Vol] 87 mg/dL Normal 74-106 [facility] Comment on above: Performed By: #### B MP #### [facility] [address] [place] [address] Dr. Nabil Che Potassium [Moles/Vol] 4.8 mmol/L Normal 3.5-5.1 [facility] Comment on above: Performed By: #### B MP #### [facility] [address] [place] [address] Dr. Nabil Che Sodium [Moles/Vol] 138 mmol/L Normal 136-145 [facility] Comment on above: Performed By: #### B MP #### [facility] [address] [place] [address] Dr. Nabil Che Urea nitrogen [Mass/Vol] 14.0 mg/dL Normal 7.0-18.0 [facility] Comment on above: Performed By: #### B MP #### [facility] [address] [place] [address] Dr. Nabil Che Urea nitrogen/Creatinine [Mass ratio] 10.4 mg/mg Normal [facility] Comment on above: Performed By: #### B MP #### [facility] [address] [place] [address] Dr. Nabil Che PROTIMEon 11-21-2021 INR Coag (PPP) [Relative time] 2.25 {INR} Normal [facility] Comment on above: Performed By: #### P SASC #### [facility] [address] [place] [address] Dr. Nabil Che INR GUIDELINES SEE BELOW Normal [facility] Comment on above: Result Comment: LETY RED INR: 2.0 - 3.0 CONDITIONS NOT LISTED BELOW 2.5 - 3.5 FOR PROSTHETIC HEART VALVE REPLACEMENT 2.5 - 3.5 RECURRENT THROMBOSIS Performed By: #### P SASC #### [facility] [address] [place] [address] Dr. Nabil Che PT Coag (PPP) [Time] 23.0 s Critically high 9.0-11.6 [facility] Comment on above: Performed By: #### P SASC #### [facility] [address] [place] [address] Dr. Nabil Che Lab Reportson 09-27-2021 Lab Reports [id number]#[id number]:12 7 Normal [facility] Lab Reports [id number]#1.00CD:12 7 Normal [facility] Outside [facility] Correspo ndenceon 09-26-2021 Outside [facility] Correspondence [id number]#[id number]:12 7 Normal [facility] PROTIMEon 09-26-2021 INR Coag (PPP) [Relative time] 1.70 {INR} Normal [facility] Comment on above: Performed By: #### P SASC #### [facility] [address] [place] [address] Dr. Nabil Che INR GUIDELINES SEE BELOW Normal [facility] Comment on above: Result Comment: LETY RED INR: 2.0 - 3.0 CONDITIONS NOT LISTED BELOW 2.5 - 3.5 FOR PROSTHETIC HEART VALVE REPLACEMENT 2.5 - 3.5 RECURRENT THROMBOSIS Performed By: #### P SASC #### [facility] [address] [place] [address] Dr. Nabil Che PT Coag (PPP) [Time] 17.7 s Critically high 9.0-11.6 [facility] Comment on above: Performed By: #### P [facility] #### [facility] [address] [place] [address] Dr. Nabil Richardon 09-26-2021 Reminders - From: Jeancarlos GUDINO DO To: [facility] - Clinical; Sent: 09/21/2021 19:58:49 EDT Show up: 09/21/2021 19:59:00 EDT Subject: Ambulatory Reminder Due Date/Time: 09/22/2021 19:58:00 EDT MRI is negative Results: Date Result Type Result Name 09/21/2021 17:20 Radiology MRI Brain w/ + w/o Contrast LMOM for patient to return call. Patient returns call, message given and verbalized understanding. 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 CD:[id number] Gh0bW w+PGhlYWQ+MG2EGQZkI39jiSV kuO4CQ0rLIU6OINBYKUBXMI8J JP2bpJI3DQazT1YbfoMo RengmWZxBV27SMm1UZZ0kDxiD PdejT8ebSKvD5g7ZqNnKA34mJ 12JMquCYYeYlW4RaLtbpedxJD y J5zyMeUsjDPhBzg+PHRhYmxlI HdpZHRoPScxMDAlJyBzdHlsZT 6qLx7hWQWsLHNqbHdvdSLrYvF j s1asEZSmRDqhZE4kiQypC8Dgj WB9LWDoj3u8Yi89uYY+PHRkIH R0eWapANbdz299IhKmc6fbBUY 3 zBOsMFlwRTG9S97et6Y8HMUrL DLbTJV4tAM7rX1lvQbqvxfoW5 AjaFDhClB9WER8lGMxsK9lvOf n ttzqhU7uIyz+K00CQL9LZBNSI L7ZRsj4I5DtFkubqOP+PC90YW PkAI55nSVhyJTao5ayzFn8EuC w GGQdOXN4zMdlEJteq0YcRTRdH 80bwODhl4J8NBSrbWbkuFWyJa KocXG3oF2dWRzsaphbi8vevaz n Kozyj7hhkg38zU46L22qKRybJ SYlKBT7GTCsVLLyfJwwda5pcP 9wIi8+WOlvw4kpz5sahZc4NjJ w MACnryLkwZqaIEK1y8CwLr69Y 4DcqCftc2PbRmd9tf59tXAgh8 N6rUZ3ZEszIKFxkA3iKTrzTrE 6 ZXPjVlDiaX09aQIdTEptOl1cm HhgoXupJG1lTAGstdptUQLroN 6dZIUbaEHpdMdjUT8fASXhhul m a557FuPvLEE4LPMotGBpI4Olx K7vXuXuMWBeEZOyS9BulWXtFY ojF879LTwpQuE3CZTdyhQeJ8Q s BHMcmGxwZrU5g2K0Ye5Yl2Rdv ekxAOC5XGdoGQD8VlRpFlQkWe I3Q8TkLog1PSBdlYdwFM8bI1M h AWMoysypqpmnmGY8MAYaZTCin N32fCYeQLvlXx4sq6L8w641IF BlXXSuqY82Tu7fjYnsYOPljWV U kM4yphpoh2bipdqpPvObIFQeZ Dg4NCr1DSQkxLkhFmOhIKK3Ee C4CEQ1gLKrfQ6rvLbdlzzidR6 w Oyc+C12sdG5qYEP0IQC2xfdbI YHshdAuVN63DK70Y1ByFnmbnQ FibGU+OSYiwnVcmSaxBI2oFqC j m1kxc3YjVVbaX4EqLAPiLRprF rd6ILDcDGX5fIR2lB7iZUCiMN xjc4Q5nFJ3H2MwjaXojg5iu0x s CXOaSVqtS29bcEIgi2I2NZVsk XU4QZFwjLyhYeUefR23Itj+PG MtxAded2GdXetug0dso5jtyUu 9 KnOhWCZdacLhiUyrIBQ2t4AfM n02T35pMEecXQQwTRAuAFKpGW VtbFaysz0arV8yCb2+PGNvbCB 3 zXE7kR0aNDVwVtZ6OJdyF757M vEmlCEnSijkp8xig6vwsTx9Jq FjDMXnzaKnsCraCRW2g9MhKx4 8 J27cOVchRCZqGUHeQZNgVBMwb Uyhjb0eiI2aYj8+MS7th8mibn 14qU32nHT+WYJzGJQ8zZdpGVu w OOObfB1fMVkiCiR4EWWjCpHgs E29jSPoKJeaTc3bqXmanMmnQH 8uSRYeiyegy593AnIql0htOXM w gHNyRTauGPY7G16uq2L4CITzZ VDkBET6vYP2wK8bjGthaieobG FptDxspqYvlVcnIFspZXseA30 6 IHRvcDsnPlBhdGllbnQgTmFtZ Rb2S6JmRex1TUYhsCdyVU3bmA UdEDwoVg4ytEsxsRycBH7iSHG p ltxkl772DvSwz9uyVNAohJZaJ BeaRPA0A54ki5U6ZQWoXLHoNQ R3zNH0uL7qiUknrobiaTSnmNo g aqPypDnbCRckJCtaZ359XIKis JmpFuXvtjIuNKQxwKI4PK14GZ 06yQVvn8P4fNG0F5IzYHSopwn t zzilxZD9YJDkDJKmqV27Dr0rs OtfGv3wUOVkUJG3JUXdnDFuM1 TeiK3wThAsKNPyOOCfR3CuqQU t BDhpV892CCynRtX6GGJsahSiJ 2YiXLNxlNltKlR9i3U7Nh9XZ0 V3YH01QD55eFFfd2A9gWK6N9A h EQSybzsyeohmmNW4CINvRELpr X74Sa2qlBwgZy7kUJIdYRQ1CW IpyGCpT6PzmN9dVpGzKOPqUJQ w B5JshQMoOKbnJ149HEizFiZ3O CBgvjDlV8HlRSSfgEcbYzJ2b1 N4Zt3WCPe9WQ76ZA41gWGam1B 5 vBB5C6KaVBQskmtutovqoTD0Q OHpJIEcfG97Qu8jxRyhMk7bPX OmJUX1LWQmnZLsC4YriG6eIbH j BQDxDLTsM9DygXYrZCaxZ316T TjeBjW1IOZyisWtS3StXLKrtL ufHuJ5d1W1Ay9AARYlBP31OIM 5 dYA6FB44QL42V0FyZhyxgUAtk +PHRhYmxlIHdpZHRoPScxMD AeMpVviFxuLR8yMv3iONKwRQH v sZsxxNUaJiYwd9jrZKHhFWqlV I8nlEvxL6JcgWU8KCXkb1w9Vt 62X54pH2IdlRG+HXNcwQV8nGX 0 wA6vUbRhDhU7IBnqF317QxIxa FZfDygxu6udz9mezYy2XtZ5YC YmisOjkVxsRCF3e2VbXk91E85 s IHdpZHRoPSIxNSUiIHZhbGlnb p1tzH8dWv1+ZSLqjDF5uIH1bC 6sNnWjHaO5IFwiS143PyVffNB v Dzzdd2ips8ifwOa0OgHcMQAms cQqrPnwYHV9x4KoVv54V3PakK zud9UdUhw8kb21yAZyx9D2hRQ 9 W7TxXGAuwwmglQDlqLmtON8lJ UOwjevtFSFteJ1vKWYcY7j2Yr GgYsA1VKnoY7XwnyP6BDKihOL g SUrlJSJ5I48za5C8WVMdOBSpN ME8jDN2jR7gaQlgkmtkiBLdbS uwvmDueTqnCGzzXLqjO764PQN v yKhzIQUvfX3xFCRkhHUneScaL C9nFPOqvoduFltBAyNCDNSYAZ HDUNN9H9VaOwn2NBLnxDbqNG0 n iRCnQYdjSq3rkAaihEtxTJ7hL QKlqvfsQYHtkX6mFUZngVKkvY fvYG6kSJBezsnhz287NnPgTRX 0 ZCMxwJFbY9VjmJ3mGrCgCYCzY UGfX0ZjwVFhTAwhE771SEdxKe J2TRFcreWeP2ZwLLIaiJzwKqW 0 v3X8Gh4fMn0nYR7qUQDeUQ05L E70sGLab8K9tRP1L0XhSTBdzl kbnnydeKB2EOGcPKAcnP82jRH k WQzuNr0yg8X5j840GDWzLJKve Y08Nz1hkDbxXXRwvIWRbY8wef nml7xbyuvtCeHkJCXuJPl0BMh 0 OPYymYqlVqErUBY3CdP1HIY3d IXfyP8kvMtzdqpbjV1sQeg+Nj LwFCJptvR0T3ZpIcn9AINnmNq s EW9tmXXcBThmEn9yiEzsaZadF Z2sENOlfwteHIGgpI7kPDOshL VkkLibQM1eDXHeegyms054NvA x IBH4JVXldIIjC7QleD7zPaPqA GWeOLCwP3JqlHObJMdgR899FE joJzM8NAKzghIlU3BiVTTboWx u HnM5a5D9Ri2TSPdvKU52KS78v QDgz6C0rXU2P4QeKNJdsxgpbs pdiVI6PFTsHZSyaQ03iIUsVSx u Es8ph2H6r790EBUfDDPziA66U w8ubJlpJGBmhOCVsF6dvyebq8 owokftNeNpCKMwPMi4KOc9OYT s mVgiDvArHSF8JiG4DTZ3sRTaa I0ahVupaufjiK6wFim+T3V0cG F0wPUpkPtcbDD+MV31qo99V9T h ManmXnb2TGSeAYP9aUO6aC5qG QPnKBtjx6X1gVJ0X4KmftMuyg 6ca4epJOAnECvlL94uaOPlo1X 7 CPRetHE9VIBlsYgpGeGsjE62D yc+FOHedFbjj7ApGhhbe8tlv5 cihNl8ZuYmXXWdvfKtySvlIZP 0 r8AwIf64H10eGWpqOWRtKXLlH DTuLNVpcChupq4itA6jAh7+PG NxeBU7vEC0jU2yWtCvEtW0UFj p U291InKzmPFqJfufe4exi8nnc Ud6TkAgNCEgztIpeHezYED5a0 BdLm22Z4SddGhiq7VaCai8je2 8 pLFaz1Q2eBQ8K2TiQKDfzkigk VCisXynZV3lZNFulwriCIPwlB 9aBKMiQ4r8SkBnGfZ4MIryC2Y v ygY8ZBRjiXMhQMBiiAINbG7zw eyep1gqiyzvCuJkHKYxIGd1DC y8BUWkkFghLsQmHEA8EkV7IDB 0 hWBigB0vmAlviwfqiH4oTpu+U Zy8m6nopCJuDK4ooCQ2EJ78AH 90oPTzi5W1uMR7G9JwKUYsfjq t yorbkWH2QYHgCDBhiW28Rb5uk YbaCm9nNOOnFHB4TJDphAFqW7 UwaW1qNyWxONNaAJXgR0SqtGW t IDdfF881SAwfRoU7XTBluoHhF 2TyUUUdfOujTpK9x4R2Ma4QPX 00TE76JH07wTMsl2K8cME1R1N h OUJukfhgvjigaKD8LQNrICPul S18Lx3yeVjbAk8yGJBuSUQ2VQ UstKYsI9KnaR8xZwZnAXZaOUR w U3PpzGIwGIrmO389SPsmGfP3L NYinwQuU5SuMQZhoAwiPsP9f9 Z0Lu9SMm26QH43QE81xGCfk7F 5 zYF7U7WiQSEiqzoosgsclPI8A ONbEZXqcP95Ce8pkHyaTl1mTN WjHIN2JOWhxRNyF5PncH7dCoV j JBIjORLzZ3SheKFlVAglA626U FjpNkQ3YUOldjBxC6WxTQDomO abVpL9r2W3Qb5IHKwuvwe1L5S k PjwvdHI+ZC02XUMdMV76fQLqa FCdr8eruGe6MbPkHLFtUFP9oG uzIAfsb9UxNMGlD69egNBox0Z 6 IGNv (more content not included)... Normal [facility] MRI Brain w/ + w/o Contrasto n [...] Comments MultiHance Contrast amount in ml's: 20 [facility] Consent for Treatmenton 08-22 Consent for Treatment [id number]#[id number]:12 7 [facility] RAD - MRI Screening Formon 0 09-16-2021 RAD - MRI Screening Form [id number]#[id number]:12 7 [facility] Ambulatory Visit Summaryon 0 09-09-2021 Ambulatory [...] Following Appointments Follow Up with Jeancarlos GUDINO DO [facility] When: In 1 year Where: [address] [place] [address]- You Need to Complete the Following MRI Brain w/o Contrast, 09/09/21, Routine, Order for Future Visit, Transport Mode: Ambulatory, Reason: Headache, No, No, Dizziness Normal Trigeminal neuralgia, Need IAC evaluation, pp_set_radiolog y_subspecialty, [facility]\.br\ Medications\.br \ What How Much When Instructions\.b r\ Unchanged cholestyramine (Questran 4 g/ 9 g [...] sunday \.br\ Allergies\.br\ Pradaxa (Rectal bleeding, Epistaxis, Incontinence)\. br\ penicillins\.br \ Problems\.br\ Ongoing - Any problem that you are currently receiving treatment for.\.br\ Dizziness\.br\ Encounter for monitoring Coumadin therapy\.br\ Hearing loss on right\.br\ Preventative health care\.br\ Screening for malignant neoplasm of prostate\.br\ Trigeminal neuralgia\.br\ Vasovagal attack\.br\ \.br\ [facility] Family Medicine Office/Clini c Noteon 09-09-2021 Family [...] he has his labs drawn monthly at [facility], but no results are documented or filed in the chart. Also takes Aciphex 20mg once daily. States this is still working well for him. Labs completed at [facility] on 09/05/21. States he has had a colonoscopy within the past [address] [place] History of Present Illness I have reviewed [...] # 30 tab(s), Refills(s) 0, Pharmacy: [facility]/pharmacy #[id number], 180.3, cm, 05/20/20 15:18:00 EST, Height/Length Dosing, 108.4, kg, 05/20/20 15:18:00 EST, Weight Dosing Follow-up With When Contact Information Jeancarlos GUDINO DO, MARTÍNEZ In 1 year [address] [place] [address]- Additional Instructions: Problem List/Past Medical [...] influenza virus vaccine, inactivated 02/12/2013 Recorded Normal [facility] Comment on above: Result Comment: Elec tronically Signed By: Jeancarlos GUDINO DO\.br\Date and Time Signed: 09/09/21 10:19 EDT Lab Reportson 08-31-2021 Lab Reports [id number]:12 7 Normal [facility] Tobacco Screening.on 022 Tobacco use status [facility] a) Yes [facility]-Sandu riddhi 250 DO Work Phone: Tobacco Screening. Yes -[facility]-Sandu riddhi 250 DO Work Phone: CBCon 02-11-2019 Erythrocyte distribution width (RBC) [Ratio] 12.9 % Normal 11.5 - 14.5 [facility] Comment on above: Performed By: #### C BC #### [address] [address] Hematocrit (Bld) [Volume fraction] 48.1 % Normal 41.0 - 52.0 [facility] Comment on above: Performed By: #### C BC #### [address] [address] Hemoglobin (Bld) [Mass/Vol] 16.7 g/dL Normal 13.5 - 17.5 [facility] Comment on above: Performed By: #### C BC #### [address] [address] MCHC (RBC) [Mass/Vol] 34.7 g/dL Normal 32.0 - 36.0 [facility] Comment on above: Performed By: #### C BC #### [address] [address] MCV (RBC) [Entitic vol] 91 fL Normal 80 - 100 [facility] Comment on above: Performed By: #### C BC #### [address] [address] Platelets (Bld) [#/Vol] 182 10*3/uL Normal 150 - 450 [facility] Comment on above: Performed By: #### C BC #### [address] [address] RBC (Bld) [#/Vol] 5.26 x10E12/L Normal 4.50 - 5.90 [facility] Comment on above: Performed By: #### C BC #### [address] [address] WBC (Bld) [#/Vol] 9.3 10*3/uL Normal 4.4 - 11.3 [facility] Comment on above: Performed By: #### C BC #### [address] [address] CREATININEon 02-11-2019 Creatinine [Mass/Vol] 0.87 mg/dL Normal 0.50 - 1.30 [facility] Comment on above: Performed By: #### C REAT #### [address] [address] Creatinine [Mass/Vol] mg/dL Normal >60 [facility] Comment on above: Result Comment: CALC ULATIONS OF ESTIMATED GFR ARE PERFORMED USING THE MDRD STUDY EQUATION FOR THE IDMS-TRACEABLE CREATININE METHODS. CLIN CHEM 2007;53:766-72 Performed By: #### C REAT #### [address] [address] ELECTROLYTE PANELon 02-12-20 19 Anion gap [Moles/Vol] 12 mmol/L Normal 10 - 20 [facility] Comment on above: Performed By: #### E LECT #### [address] [address] Chloride [Moles/Vol] 105 mmol/L Normal 98 - 107 [facility] Comment on above: Performed By: #### E LECT #### [address] [address] HCO3 (Bld) [Moles/Vol] 28 mmol/L Normal 21 - 32 [facility] Comment on above: Performed By: #### E LECT #### [address] [address] Potassium [Moles/Vol] 4.1 mmol/L Normal 3.5 - 5.3 [facility] Comment on above: Performed By: #### E LECT #### [address] [address] Sodium [Moles/Vol] 141 mmol/L Normal 136 - 145 [facility] Comment on above: Performed By: #### E LECT #### [address] [address] UREA NITROGENon 02-11-2019 Urea nitrogen [Mass/Vol] 12 mg/dL Normal 6 - 23 [facility] Comment on above: Performed By: #### U BELÉN #### [address] [address] ALT (SGPT)on 12-26-2017 ALT enzyme act/vol 18 U/L Normal 10-52 [facility] Comment on above: Performed By: #### 1 [id number] ####[facility] [address] [place] [address] AST (SGOT)on 12-26-2017 AST enzyme act/vol 20 U/L Normal 13-39 [facility] Comment on above: Performed By: #### 1 [id number] ####[facility] [address] [place] [address] CBCon 12-26-2017 Erythrocyte distribution width Auto Ratio (RBC) 13.4 % Normal 12.0-15.4 [facility] Comment on above: Performed By: #### 2 [id number] ####[facility] [address] [place] [address] Hematocrit Auto Volume Fraction (Bld) 48.6 % Normal 38.4-54.9 [facility] Comment on above: Performed By: #### 2 [id number] ####[facility] [address] [place] [address] Hemoglobin mass conc (Bld) 16.3 g/dL Normal 12.8-17.7 [facility] Comment on above: Performed By: #### 2 [id number] ####[facility] [address] [place] [address] MCH Auto Entitic mass (RBC) 31.0 pg Normal 27.5-32.9 [facility] Comment on above: Performed By: #### 2 [id number] ####[facility] [address] [place] [address] MCHC Auto mass conc (RBC) 33.5 g/dL Normal 30.5-35.4 [facility] Comment on above: Performed By: #### 2 [id number] ####[facility] [address] [place] [address] MCV Auto Entitic volume (RBC) 92.6 fL Normal 83.3-98.2 [facility] Comment on above: Performed By: #### 2 [id number] ####[facility] [address] [place] [address] NRBC Absolute 0.00 10*3/uL Normal [facility] Comment on above: Performed By: #### 2 [id number] ####[facility] [address] [place] [address] NRBC Automated 0.0 /100{WBCs} Normal [facility] Comment on above: Performed By: #### 2 [id number] ####[facility] [address] [place] [address] Platelet mean volume Auto Entitic volume (Bld) 12.0 fL Normal 9.9-12.1 [facility] Comment on above: Performed By: #### 2 [id number] ####[facility] [address] [place] [address] Platelets Auto #/vol (Bld) 156 10*3/uL Normal 155-404 [facility] Comment on above: Performed By: #### 2 [id number] ####[facility] [address] [place] [address] RBC Auto #/vol (Bld) 5.25 10*6/uL Normal 4.08-6.37 [facility] Healthcare Comment on above: Performed By: #### [id number] ####[facility] [address] [place] [address] RDW SD 45.5 fL Normal 39.3-48.6 [facility] Healthcare Comment on above: Performed By: #### 2 [id number] ####[facility] [address] [place] [address] WBC Auto #/vol (Bld) 7.2 10*3/uL Normal 4.2-11.0 [facility] Comment on above: Performed By: #### 2 [id number] ####[facility] [address] [place] [address] Creatinineon 12-26-2017 Creatinine mass conc 0.92 mg/dL Normal 0.50-1.30 [facility] Comment on above: Performed By: #### 1 [id number] ####[facility] [address] [place] [address] GFR/1.73 sq M.predicted MDRD vol rate/area mL/min/{1.73_m2} Normal [facility] Comment on above: Result Comment: Inte rpretation for Chronic Kidney Disease:Stages 1&2 >60 Healthy or potential kidney damage.Mild decrease of GFR.Stage 3 30-59 Moderate decrease of GFR.Stage 4 15-29 Severe decrease of GFR.Stage 5 <15 Kidney failure or on dialysis. Performed By: #### 1 [id number] ####[facility] [address] [place] [address] Electrolyte Panelon 12-27-19 18 Anion gap 3 molar conc 9 mmol/L Low 10-20 [facility] Comment on above: Performed By: #### 1 [id number] ####[facility] [address] [place] [address] Chloride molar conc 106 mmol/L Normal 98-107 [facility] Comment on above: Performed By: #### 1 [id number] ####[facility] [address] [place] [address] HCO3 molar conc (Bld) 29 mmol/L Normal 21-32 [facility] Healthcare Comment on above: Performed By: #### 1 [id number] ####[facility] [address] [place] [address] Potassium molar conc 4.1 mmol/L Normal 3.5-5.1 [facility] Comment on above: Performed By: #### 1 [id number] ####[facility] [address] [place] [address] Sodium molar conc 140 mmol/L Normal 136-145 [facility] Healthcare Comment on above: Performed By: #### 1 [id number] ####[facility] [address] [place] [address] Urea Nitrogenon 12-26-2017 Urea nitrogen mass conc 10 mg/dL Normal 6-23 [facility] Healthcare Comment on above: Performed By: #### 1 [id number] ####[facility] [address] [place] [address] Vital Signs Date Time Vital Sign Value Performing Clinician Facility 11-05-2024 13:12-0400 Body height 180.34 cm Regi Leong MD Work Phone: [facility] 11-05-2024 13:12-0400 Body mass index (BMI) [Ratio] 31.1 kg/m2 Regi Leong MD Work Phone: [facility] 11-05-2024 13:12-0400 Body temperature 98.8 [degF] Regi Leong MD Work Phone: [facility] 11-05-2024 13:12-0400 Body weight 101.37 kg Regi Leong MD Work Phone: [facility] 11-05-2024 13:12-0400 Diastolic blood pressure 80 mm[Hg] Regi Leong MD Work Phone: [facility] 11-05-2024 13:12-0400 Heart rate 63 /min Regi Leong MD Work Phone: [facility] 11-05-2024 13:12-0400 Systolic blood pressure 146 mm[Hg] Regi Leong MD Work Phone: [facility] 09-11-2024 09:40-0400 Diastolic blood pressure 63 mm[Hg] Regi Leong MD Work Phone: [facility] 09-11-2024 09:40-0400 Heart rate 58 /min Regi Leong MD Work Phone: [facility] 09-11-2024 09:40-0400 Respiratory rate 20 /min Regi Leong MD [facility] [facility] 09-11-2024 09:40-0400 SaO2% (BldA) [Mass fraction] 98 % Regi Leong MD Work Phone: [facility] 09-11-2024 09:40-0400 Systolic blood pressure 100 mm[Hg] Regi Leong MD Work Phone: [facility] 09-11-2024 07:27-0400 Body height 180.34 cm Regi Leong MD Work Phone: [facility] 09-11-2024 07:27-0400 Body weight 99.79 kg Regi Leong MD Work Phone: [facility] 08-19-2024 14:31-0400 Body height 180.34 cm Regi Leong MD Work Phone: [facility] 08-19-2024 14:31-0400 Body mass index (BMI) [Ratio] 30.8 kg/m2 Regi Leong MD Work Phone: [facility] 08-19-2024 14:31-0400 Body weight 100.24 kg Regi Leong MD Work Phone: [facility] 08-19-2024 14:31-0400 Diastolic blood pressure 76 mm[Hg] Regi Leong MD Work Phone: [facility] 08-19-2024 14:31-0400 Heart rate 64 /min Regi Leong MD Work Phone: [facility] 08-19-2024 14:31-0400 Respiratory rate 20 /min Regi Leong MD Work Phone: [facility] 08-19-2024 14:31-0400 SaO2% (BldA) [Mass fraction] 97 % Regi Leong MD Work Phone: [facility] 08-19-2024 14:31-0400 Systolic blood pressure 125 mm[Hg] Regi Leong MD Work Phone: [facility] 08-15-2024 10:07-0400 Body height 180.34 cm Regi Leong MD Work Phone: [facility] 08-15-2024 10:07-0400 Body mass index (BMI) [Ratio] 30.7 kg/m2 Regi Leong MD Work Phone: [facility] 08-15-2024 10:07-0400 Body weight 99.79 kg Regi Leong MD Work Phone: [facility] 08-15-2024 10:07-0400 Diastolic blood pressure 69 mm[Hg] Regi Leong MD Work Phone: [facility] 08-15-2024 10:07-0400 Heart rate 57 /min Regi Leong MD Work Phone: [facility] 08-15-2024 10:07-0400 Systolic blood pressure 134 mm[Hg] Regi Leong MD Work Phone: [facility] 08-01-2024 13:19-0400 Body height 180.3 cm Carly Gamble MD Work Phone: [facility] 08-01-2024 13:19-0400 Body mass index (BMI) [Ratio] 30.91 kg/m2 Carly Gamble MD Work Phone: [facility] 08-01-2024 13:19-0400 Body weight 100.52 kg Carly Gamble MD Work Phone: [facility] 08-01-2024 13:19-0400 Diastolic blood pressure 70 mm[Hg] Carly Gamble MD Work Phone: [facility] 08-01-2024 13:19-0400 Heart rate 58 /min Carly Gamble MD Work Phone: [facility] 08-01-2024 13:19-0400 Systolic blood pressure 132 mm[Hg] Carly Gamble MD Work Phone: [facility] 06-17-2024 10:48-0500 Body height 180.34 cm Regi Leong MD Work Phone: [facility] 06-17-2024 10:48-0500 Body mass index (BMI) [Ratio] 30.5 kg/m2 Regi Leong MD Work Phone: [facility] 06-17-2024 10:48-0500 Body weight 99.33 kg Regi Leong MD Work Phone: [facility] 06-17-2024 10:48-0500 Diastolic blood pressure 74 mm[Hg] Regi Leong MD Work Phone: [phone] [place] [address] 06-17-2024 10:48-0500 Heart rate 58 /min Regi Leong MD Work Phone: [facility] 06-17-2024 10:48-0500 Systolic blood pressure 126 mm[Hg] Regi Leong MD Work Phone: [facility] 06-14-2024 09:15-0500 SaO2% (BldA) [Mass fraction] 96 % Regi Leong MD Work Phone: [facility] 06-14-2024 09:06-0500 Body height 180.34 cm Regi Leong MD Work Phone: [facility] 06-14-2024 09:06-0500 Body mass index (BMI) [Ratio] 30.4 kg/m2 Regi Leong MD Work Phone: [facility] 06-14-2024 09:06-0500 Body temperature 98.4 [degF] Regi Leong MD Work Phone: [facility] 06-14-2024 09:06-0500 Body weight 99.05 kg Regi Leong MD Work Phone: [facility] 06-14-2024 09:06-0500 Diastolic blood pressure 75 mm[Hg] Regi Leong MD Work Phone: [facility] 06-14-2024 09:06-0500 Heart rate 62 /min Regi Leong MD Work Phone: [facility] 06-14-2024 09:06-0500 Systolic blood pressure 133 mm[Hg] Regi Leong MD Work Phone: [facility] 01-04-2024 12:51-0400 Body height 180.3 cm Carly Gamble MD Work Phone: [facility] 01-04-2024 12:51-0400 Body mass index (BMI) [Ratio] 30.96 kg/m2 Carly Gamble MD Work Phone: [facility] 01-04-2024 12:51-0400 Body weight 100.7 kg Carly Gamble MD Work Phone: [facility] 01-04-2024 12:51-0400 Diastolic blood pressure 64 mm[Hg] Carly Gamble MD Work Phone: [facility] 01-04-2024 12:51-0400 Heart rate 63 /min Carly Gamble MD Work Phone: [facility] 01-04-2024 12:51-0400 Systolic blood pressure 118 mm[Hg] Carly Gamble MD Work Phone: [facility] 02-13-2023 13:30-0400 Body height 181.61 cm Uche Porter Other [facility] Other 02-13-2023 13:30-0400 Body mass index (BMI) [Ratio] 32.73 kg/m2 Uche Porter Other [facility] Other 02-13-2023 13:30-0400 Body temperature 97.1 [degF] Uche Porter Other [facility] Other 02-13-2023 13:30-0400 Body weight 107.96 kg Uche Porter Other [facility] Other 02-13-2023 13:30-0400 Diastolic blood pressure 76 mm[Hg] Uche Porter Other [facility] Other 02-13-2023 13:30-0400 Respiratory rate 20 /min Uche Porter Other [facility] Other 02-13-2023 13:30-0400 SaO2% (BldA) [Mass fraction] 96 % Uche Porter Other [facility] Other 02-13-2023 13:30-0400 Systolic blood pressure 130 mm[Hg] Uche Porter Other [facility] Other 02-09-2023 10:45-0400 Body height 181.61 cm Regi Leong Other [facility] Other 02-09-2023 10:45-0400 Body mass index (BMI) [Ratio] 32.92 kg/m2 Regi Leong Other [facility] Other 02-09-2023 10:45-0400 Body weight 108.59 kg Regi Leong Other [facility] Other 02-09-2023 10:45-0400 Diastolic blood pressure 72 mm[Hg] Regi Leong Other [facility] Other 02-09-2023 10:45-0400 SaO2% (BldA) [Mass fraction] 97 % Regi Leong Other [facility] Other 02-09-2023 10:45-0400 Systolic blood pressure 118 mm[Hg] Regi Leong Other [facility] Other 12-12-2022 09:59-0400 Body height 180.34 cm Regi Leong Work Phone: [facility] 250 DO Work Phone: 12-12-2022 09:59-0400 Body mass index (BMI) [Ratio] 33.19 kg/m2 Regi Leong Work Phone: [facility] 250 DO Work Phone: 12-12-2022 09:59-0400 Body surface area Derived from formula 2.27 m2 Regi Leong Work Phone: [facility] 250 DO Work Phone: 12-12-2022 09:59-0400 Body weight 107.96 kg Regi eLong Work Phone: [facility] 250 DO Work Phone: 12-12-2022 09:59-0400 Diastolic blood pressure 64 mm[Hg] Regi Leong Work Phone: [facility] 250 DO Work Phone: 12-12-2022 09:59-0400 Heart rate 66 /min Regi Leong Work Phone: [facility] 250 DO Work Phone: 12-12-2022 09:59-0400 Systolic blood pressure 110 mm[Hg] Regi Leong Work Phone: [facility] 250 DO Work Phone: 11-07-2022 15:00-0400 Body height 181.61 cm Uche Porter Other [facility] Other 11-07-2022 15:00-0400 Body mass index (BMI) [Ratio] 33.14 kg/m2 Uche Porter Other [facility] Other 11-07-2022 15:00-0400 Body temperature 97.8 [degF] Uche Porter Other [facility] Other 11-07-2022 15:00-0400 Body weight 109.32 kg Uche Porter Other [facility] Other 11-07-2022 15:00-0400 Diastolic blood pressure 81 mm[Hg] Uche Porter Other [facility] Other 11-07-2022 15:00-0400 Respiratory rate 20 /min Uche Porter Other [facility] Other 11-07-2022 15:00-0400 SaO2% (BldA) [Mass fraction] 96 % Uche Porter Other [facility] Other 11-07-2022 15:00-0400 Systolic blood pressure 128 mm[Hg] Uche Porter Other [facility] Other 09-04-2022 10:00-0400 Body height 181.61 cm Regi Leong Other [facility] Other 09-04-2022 10:00-0400 Body mass index (BMI) [Ratio] 33.97 kg/m2 Regi Leong Other [facility] Other 09-04-2022 10:00-0400 Body weight 112.04 kg Regi Leong Other [facility] Other 09-04-2022 10:00-0400 Diastolic blood pressure 72 mm[Hg] Regi Leong Other [facility] Other 09-04-2022 10:00-0400 SaO2% (BldA) [Mass fraction] 92 % Regi Leong Other [facility] Other 09-04-2022 10:00-0400 Systolic blood pressure 118 mm[Hg] Regi Leong Other [facility] Other 06-07-2022 09:01-0500 Body height 180.34 cm Jeancarlosadeline Gudino Work Phone: [facility]kn[facility] [place] 250 DO Work Phone: 06-07-2022 09:01-0500 Body mass index (BMI) [Ratio] 33.75 kg/m2 Jeancarlos Reg Terese Work Phone: [facility]Pnek[facility] [place] 250 DO Work Phone: 06-07-2022 09:01-0500 Body surface area Derived from formula 2.29 m2 Jeancarlos Gudino Work Phone: DM[facility]Qhirltowop-Njuazc [place] 250 DO Work Phone: 06-07-2022 09:01-0500 Body weight 109.77 kg Jeancarlosadeline Gudino Work Phone: [facility]Tcsnvoczwb-Gmrmnc [place] 250 DO Work Phone: 06-07-2022 09:01-0500 Diastolic blood pressure 82 mm[Hg] Jeancarlos Finney Terese Work Phone: OM-Kfidtxfmqc-Ppqrju [place] 250 DO Work Phone: 06-07-2022 09:01-0500 Heart rate 52 /min Jeancarlos Gudino Work Phone: IA-Vxyefcgsfo-Ejsass [place] 250 DO Work Phone: 06-07-2022 09:01-0500 Systolic blood pressure 130 mm[Hg] Jeancarlos Finney Terese Work Phone: CI-Hsauqhzsrs-Ekqbeu [place] 250 DO Work Phone: 12-06-2021 09:15-0400 Body height 180.34 cm Jeancarlos Reg Gudino Work Phone: [facility] 250 DO Work Phone: 12-06-2021 09:15-0400 Body mass index (BMI) [Ratio] 32.78 kg/m2 Jeancarlos Gudino Work Phone: [facility] 250 DO Work Phone: 12-06-2021 09:15-0400 Body surface area Derived from formula 2.26 m2 Jeancarlos Gudino Work Phone: [facility] 250 DO Work Phone: 12-06-2021 09:15-0400 Body weight 106.6 kg Jeancarlos Gudino Work Phone: [facility] 250 DO Work Phone: 12-06-2021 09:15-0400 Diastolic blood pressure 70 mm[Hg] Jeancarlos Gudino Work Phone: [facility] 250 DO Work Phone: 12-06-2021 09:15-0400 Heart rate 50 /min Jeancarlos Gudino Work Phone: [facility] 250 DO Work Phone: 12-06-2021 09:15-0400 Systolic blood pressure 136 mm[Hg] Jeancarlos Gudino Work Phone: [facility] 250 DO Work Phone: 09-09-2021 09:34-0400 Blood Pressure Location Jeancarlos GUDINO [facility] 09-09-2021 09:34-0400 Body temperature 97.52 [degF] Jeancarlos GUDINO [facility] 09-09-2021 09:34-0400 Diastolic blood pressure 74 mm[Hg] Jeancarlos GUDINO [facility] 09-09-2021 09:34-0400 Heart rate 60 /min Jeancarlosadeline GUDINO [facility] 09-09-2021 09:34-0400 SaO2% (BldA) [Mass fraction] 95 % Jeancarlos GUDINO [facility] 09-09-2021 09:34-0400 Systolic blood pressure 122 mm[Hg] Jeancarlos GUDINO [facility] 05-24-2021 15:13-0500 Body height 180.34 cm Jeancarlos Gudino Work Phone: [facility] 250 DO Work Phone: 05-24-2021 15:13-0500 Body mass index (BMI) [Ratio] 32.36 kg/m2 Jeancarlos Gudino Work Phone: [facility] 250 DO Work Phone: 05-24-2021 15:13-0500 Body surface area Derived from formula 2.25 m2 Jeancarlos Gudino Work Phone: [facility] 250 DO Work Phone: 05-24-2021 15:13-0500 Body weight 105.24 kg Jeancarlos Gudino Work Phone: [facility] 250 DO Work Phone: 05-24-2021 15:13-0500 Diastolic blood pressure 78 mm[Hg] Jeancarlos Gudino Work Phone: [facility] 250 DO Work Phone: 05-24-2021 15:13-0500 Heart rate 61 /min Jeancarlos Gudino Work Phone: [facility] 250 DO Work Phone: 05-24-2021 15:13-0500 Systolic blood pressure 119 mm[Hg] Jeancarlos Gudino Work Phone: [facility] 250 DO Work Phone: Encounters Encounter Date Encounter Type Care Provider Facility Start: 11-05-2024 End: 11-05-2024 ambulatory Regi Leong MD Work Phone: [facility] Work Phone: Start: 11-05-2024 End: 11-05-2024 Patient encounter procedure Regi Leong MD -[facility] Work Phone: Start: 09-11-2024 Non-patient / Non-visit Regi Leong MD Work Phone: [facility] Work Phone: Start: 09-11-2024 End: 09-11-2024 Admission to same day surgery center Regi Leong MD Work Phone: [facility] Work Phone: Start: 09-11-2024 End: 09-11-2024 ambulatory Regi Leong MD Work Phone: [facility] Work Phone: Start: 08-19-2024 End: 08-19-2024 Patient encounter procedure Regi Leong MD Work Phone: [facility] Work Phone: Start: 08-15-2024 End: 08-15-2024 Patient encounter procedure Regi Leong MD Work Phone: [facility] Work Phone: Start: 08-06-2024 End: 08-06-2024 Patient encounter procedure Regi Leong MD Work Phone: [facility] [address] Work Phone: Start: 08-06-2024 End: 08-06-2024 ambulatory Regi Leong MD Work Phone: [facility] Work Phone: Start: 08-01-2024 End: 08-01-2024 Office outpatient visit 25 minutes Carly Gamble MD Work Phone: [facility] Comment on above: Obesity, Class I, BM I 30-34.9 (Primary Dx); Paroxysmal atrial fibrillation (Multi); High risk medication use; High triglycerides; Palpitations; Mixed hyperlipidemia; PVC (premature ventricular contraction); BMI 30.0-30.9,adult; Current every day smoker Start: 08-01-2024 End: 08-01-2024 ambulatory [facility] Start: 07-25-2024 Non-patient / Non-visit Regi Leong MD Work Phone: [facility] Work Phone: Start: 06-17-2024 End: 06-17-2024 Patient encounter procedure Regi Leong MD Work Phone: [facility] Work Phone: Start: 06-14-2024 End: 06-14-2024 ambulatory Sandi Collazo Facility:[facility] Start: 06-14-2024 End: 06-14-2024 Patient encounter procedure Regi Leong MD Work Phone: [facility] Work Phone: Start: 01-04-2024 End: 01-04-2024 Office outpatient visit 25 minutes Carly Gamble MD Work Phone: [facility] Comment on above: Paroxysmal atrial fi brillation (Multi); PVC (premature ventricular contraction); TIA (transient ischemic attack); Mixed hyperlipidemia; High risk medication use; Stage 3a chronic kidney disease (Multi); BMI 30.0-30.9,adult; Current every day smoker Start: 01-04-2024 End: 01-04-2024 ambulatory [facility] Start: 09-25-2023 Patient encounter status Eva Leong MD Work Phone: [facility] Start: 08-07-2023 End: 08-07-2023 ambulatory MD Regi Leong Work Phone: [facility] Work Phone: Start: 08-07-2023 End: 08-07-2023 Patient encounter procedure MD Regi Leong Work Phone: [facility] [address] Work Phone: Start: 07-27-2023 Non-patient / Non-visit MD Maribel Leong Work Phone: [facility] Work Phone: Start: 06-12-2023 Non-patient / Non-visit MD Maribel Leong Work Phone: [facility] Work Phone: Start: 02-13-2023 End: 02-13-2023 ambulatory Uche Porter Other [facility] Other Start: 02-13-2023 Office outpatient vi sit 25 minutes Kamalverto Porter [facility] Start: 02-09-2023 End: 02-09-2023 ambulatory Regi Leong Other [facility] Other Start: 02-09-2023 Office outpatient vi sit 15 minutes Regi Leong [facility] Start: 01-05-2023 Telephone encounter Regi garcia Work Phone: [facility] Work Phone: Start: 12-12-2022 Office outpatient vi sit 25 minutes Regi Leong Work Phone: [facility] Work Phone: Start: 12-12-[address] Jeancarlos Polo Terese Facility: Start: 11-07-2022 End: 11-07-2022 ambulatory Uche Porter Other [facility] Other Start: 11-07-2022 Office outpatient vi sit 15 minutes Uche Porter [facility] Start: 10-30-2022 End: 10-30-2022 ambulatory Regi Leong Other [facility] Other Start: 10-30-2022 Telephone encounter Regi Leong [facility] Start: 09-29-2022 End: 09-29-2022 ambulatory Regi Leong Other [facility] Other Start: 09-29-2022 Telephone encounter Regi Leong [facility] Start: 09-21-2022 End: 09-21-2022 ambulatory Regi Leong Other [facility] Other Start: 09-21-2022 Telephone encounter Regi Leong [facility] Start: 09-04-2022 Encounter for genera l adult medical examination without abnormal findings Regi Leong [facility] Start: 09-04-2022 Initial preventive medicine new patient 40-64yrs Regi Leong [facility] Start: 09-04-2022 End: 09-05-[address] REGI LEONG [facility] Other Start: 07-27-2022 End: 07-28-[address] JEANCARLOS GUDINO Facility:[facility] Start: 06-07-2022 End: 06-08-[address] CARLY GAMBLE Facility:[facility] Start: 06-07-2022 Office outpatient vi sit 25 minutes Jeancarlos Gudino Work Phone: [facility] 250 DO Work Phone: Start: 06-07-[address] Jeancarlos López Facility: Start: 05-24-2022 End: 05-25-[address] JEANCARLOS GUDINO Facility: Start: 04-27-2022 End: 04-28-[address] JEANCARLOS GUDINO Facility: Start: 04-07-2022 End: 04-08-[address] JEANCARLOS GUDINO Facility: Start: 03-27-2022 End: 03-28-[address] JEANCARLOS GUDINO Facility: Start: 02-22-2022 End: 02-23-[address] JEANCARLOS GUDINO Facility: Start: 01-25-2022 End: 01-26-[address] JEANCARLOS GUDINO Facility: Start: 12-06-2021 Office outpatient vi sit 25 minutes Jeancarlos Gudino Work Phone: [facility] 250 DO Work Phone: Start: 11-21-2021 End: 11-22-[address] JEANCARLOS GUDINO Facility: Start: 09-26-2021 End: 09-27-[address] JEANCARLOS GUDINO Facility: Start: 09-16-2021 End: 09-17-2021 ambulatory Jeancarlos GUDINO Facility:[facility] Start: 09-09-2021 End: 09-10-2021 ambulatory Jeancarlos GUDINO Facility:[facility] Start: 09-09-2021 End: 09-09-2021 Patient encounter procedure Jeancarlos GUDINO [facility] Start: 09-09-2021 End: 09-09-2021 Well adult monitoring check done Jeancarlos GUDINO [facility] Start: 05-24-2021 Office outpatient vi sit 25 minutes Jeancarlos Gudino Work Phone: [facility] 250 DO Work Phone: Start: 03-11-2021 Patient encounter procedure Jeancarlos Gudino Work Phone: [facility] 250 DO Work Phone: Start: 03-08-2021 Patient encounter procedure Jeancarlos Gudino Work Phone: [facility] [address] [place] Work Phone: Start: 02-03-2021 Rx Renewal Jeancarlos stevens Work Phone: [facility] [address] [place] Work Phone: Start: 12-26-2017 Patient encounter CARLY Post ility:[id number] Start: 02-20-2017 End: 02-21-2017 Ambulatory DEFAULT PHYSICIAN Facility:[facility] Procedures Date Procedure Procedure Detail Performing Clinician Start: 09-11-2024 Screening colonoscopy Cindy Leong MD Work Phone: Start: 08-06-2024 CT of lungs Regi melton MD Work Phone: Start: 08-01-2024 Ecg routine ecg w/le ast 12 lds w/i&r Carly Gamble MD Work Phone: Start: 06-14-2024 Plain chest X-ray Eva Leong MD Work Phone: Start: 01-04-2024 Ecg routine ecg w/le ast 12 lds w/i&r Carly Gamble MD Work Phone: Start: 08-07-2023 CT of chest without contrast MD Regi Leong Work Phone: Start: 09-04-[address] TEODORO GUDINO Comment on above: Performed By: #### P [facility] #### [facility] [address] [place] [address] Dr. Nabil Che Catheter ablation of arrhythmogenic focus Jeancarlos Gudino Work Phone: Cholecystectomy Jeancarlos duncan Work Phone: Colonoscopy Jeancarlos Gudino Work Phone: Plan of Treatment Date Care Activity Detail Author Start: 04-01-2025 End: 04-01-2025 Patient encounter procedure 04/01/2025 3:10 PM EST Office Visit [address] [phone] Carly Gamble MD [address] [facility] [address] [place] [address] [facility] Start: 12-22-2024 Influenza vaccination Influenz a Vaccine (Season Ended) [facility] Start: 09-11-2024 [facility] Start: 08-01-2024 End: 08-01-2024 Patient encounter procedure 08/01/2024 1:30 PM EDT Office Visit [facility] [address] [facility] [address] [place] [id number] Carly Gamble MD [address] [facility] [address] [place] [address] [facility] Start: 06-17-2024 Patient referral [facility] Work Phone: Start: 01-04-2024 End: 01-03-2025 Basic metabolic 2000 panel - Serum or Plasma Basic Metabolic Panel Lab Routine Paroxysmal atrial fibrillation (Multi) High risk medication use Stage 3a chronic kidney disease (Multi) Expected: 01/04/2024 (Approximate), Expires: 01/03/2025 [facility] Service Area Work Phone: Comment on above: Expected: 01/04/2024 (Approximate), Expires: 01/03/2025 Start: 01-04-2024 End: 01-03-2025 CBC panel - Blood by Automated count CBC Lab Routine Paroxysmal atrial fibrillation (Multi) High risk medication use Expected: 01/04/2024 (Approximate), Expires: 01/03/2025 [facility] Work Phone: Comment on above: Expected: 01/04/2024 (Approximate), Expires: 01/03/2025 Start: 12-23-2023 COVID-19 Vaccine ( season) COVID-19 Vaccine ( season) [facility] Start: 12-23-2023 COVID-19 Vaccine ( season) COVID-19 Vaccine ( season) [facility] Start: 12-23-2023 Influenza vaccination Influenza Vacc ine (#1) [facility] Start: 06-19-2023 FUV, Provider: Carly Gamble, Status: Pen, Time: 10:40 AM FUV, Provider: Carly Gamble, Status: Pen, Time: 10:40 AM [facility] 250 DO Work Phone: Start: 12-12-2022 FUV, Provider: Carly Gamble, Status: Pen, Time: 9:50 AM FUV, Provider: Carly Gamble, Status: Pen, Time: 9:50 AM [facility] y 250 DO Work Phone: Start: 09-11-2022 ambulatory Ambulatory Facility:[facility] Start: 06-07-2022 FUV, Provider: Carly Gamble, Status: Pen, Time: 9:10 AM FUV, Provider: Carly Gamble, Status: Pen, Time: 9:10 AM -[facility] 250 DO Work Phone: Start: 12-06-2021 FUV, Provider: Carly Gamble, Status: Pen, Time: 9:10 AM FUV, Provider: Carly Gamble, Status: Pen, Time: 9:10 AM [facility] 250 DO Work Phone: Start: 2021 RSV High Risk: (Elde rly (60+) or Population) (1 - Risk 60-74 years 1-dose series) RSV High Risk: (Elderly (60+) or Population) (1 - Risk 60-74 years 1-dose series) [facility] Start: 2021 RSV patient s and/or patients aged 60+ years (1 - 1-dose 60+ series) RSV patients and/or patients aged 60+ years (1 - 1-dose 60+ series) [facility] Start: 05-24-2021 FUV, Provider: Carly Gamble, Status: Pen, Time: 3:00 PM FUV, Provider: Carly Gamble, Status: Pen, Time: 3:00 PM [facility] [address] [place] Work Phone: Start: 03-11-2021 EVENT CARLITOS, Provider : YESSICA PETER CONTROL CHEMIST 1,[id number], Status: Pen, Time: 10:30 AM [facility], Provider: YESSICA PETER CONTROL CHEMIST 1,[id number], Status: Pen, Time: 10:30 AM [facility] [address] [place] Work Phone: Start: 07-05-2011 Zoster Vaccines (1 o f 2) Zoster Vaccines (1 of 2) [facility] Start: 04-23-2009 Pneumococcal vaccination Pneumococcal Vaccine (2 of 2 - PCV) [facility] Start: 04-23-2009 Pneumococcal Vaccine : Pediatrics (0 to 5 Years) and At-Risk Patients (6 to 64 Years) (2 of 2 - PCV) Pneumococcal Vaccine: Pediatrics (0 to 5 Years) and At-Risk Patients (6 to 64 Years) (2 of 2 - PCV) [facility] Start: 07-05-1983 DTaP/Tdap/Td Vaccine s (1 - Tdap) DTaP/Tdap/Td Vaccines (1 - Tdap) [facility] Start: 1980 Urine screening for protein CKD: Urine Protein Screening [facility] Start: 07-05-1979 Diabetes mellitus screening Diabetes Screening [facility] Start: 07-05-1979 Hepatitis C screening Hepatitis C [facility] Start: 1962 MMR Vaccines (1 of 1 - Standard series) MMR Vaccines (1 of 1 - Standard series) [facility] Start: 1961 HIV screening HIV Screening [facility] Start: 1961 Lipid panel Lipid Panel [facility] Start: 1961 Screening for malign ant neoplasm of colon [facility] Start: 1961 Yearly Adult Physical Yearly Adult P hysical [facility] CT Sinuses WO contrast [facility] CT Unspecified body region [facility] Patient Education [facility] Hemo rrhoids Discharge Instructions Know your Meds [facility] Colon Polypectomy Discharge Instructions [facility] Work Phone: Patient referral [facility] Work Phone: XR Chest 2 Views [facility] Immunizations Immunization Date Immunization Notes Care Provider Fa qing 01-21-2014 influenza virus vaccine, unspecified formulation Jeancarlos Finney [employer] Work Phone: [facility] Work Phone: 02-12-2013 influenza virus vaccine, unspecified formulation [employer] [facility] 04-23-2008 pneumococcal polysaccharide vaccine, 23 valent Jeancarlos S [employer] Work Phone: [facility] Work Phone: 04-23-2003 pneumococcal polysaccharide vaccine, 23 valent Jeancarlos S [employer] Work Phone: [facility] DO Work Phone: influenza virus vaccine, unspecified formulation [employer] Work Phone: [facility] DO Work Phone: Comment on above: 2012 2011 2009 2008 NEGATED: Highlighted row has not occurred!05-20-2020 influenza virus vaccine, unspecified formulation [employer] [facility] Payers Date Payer Category Payer Self-pay 2023 [employer] ( and others) [employer] [id number] 2023-Present [address] [place] [address] [id number] 2018 () [employer] [place] [id number] 1961 Unknown [id number] 2.16.840.1.886040.3.579. 2.727 1961 Unknown [id number] 2.16.840.1.803535.3.579. 2.727 1961 Unknown [id number] 2.16.840.1.541488.3.579. 2.727 1961 Unknown [id number] 2.16.840.1.561215.3.579. 2.593 1961 Unknown [id number] 2.16.840.1.590600.3.579. 2.593 1961 Unknown [id number] 2.16.840.1.528098.3.579. 2.593 1961 Unknown [id number] 2.16.840.1.706875.3.579. 2.593 1961 Unknown [id number] 2.16.840.1.227371.3.579. 2.593 1961 Unknown [id number] 2.16.840.1.856644.3.579. 2.593 1961 Unknown [id number] 2.16.840.1.972932.3.579. 2.593 1961 Unknown [id number] 2.16.840.1.265488.3.579. 2.593 1961 Unknown [id number] 2.16.840.1.021527.3.579. 2.593 1961 Unknown [id number] 2.16.840.1.821338.3.579. 2.593 1961 Unknown [id number] 2.16.840.1.501966.3.579. 2.593 1961 Unknown [id number] 2.16.840.1.184349.3.579. 2.593 1961 Unknown [id number] 2.16.840.1.895771.3.579. 2.356 1961 Unknown [id number] 2.16.840.1.509090.3.579. 2.356 1961 Unknown [id number] 2.16.840.1.863151.3.579. 2.1244 1961 Unknown [id number] 2.16.840.1.710936.3.579. 2.1244 1959 Department of [facility] e ( and others) [id number] Unknown Unknown [id number] 2.16.840.1.324500.3.579. 2.531 Unknown [id number] 2.16.840.1.292594.3.579. 2.531 Unknown [id number] 2.16.840.1.823455.3.579. 2.531 Social History Date Type Detail Facility Start: 01-04-2024 End: 08-01-2024 Daily caffeine consumption Daily caffeine consumption [place] [address] DO Work Phone: Comment on above: 1-2 mixed drinks a m onth; 1 ppd; 1-2 mixed drinks a w umkumiut; 1 decaff coffee; Start: 09-09-2021 Tobacco smoking status Heavy t obacco smoker (finding) [facility] Tobacco smoking status Never [facility] Start: 01-04-2024 End: 08-01-2024 Sex Assigned At Male [facility] Start: 1960 Sex Assigned At Male [facility] Start: 01-04-2024 End: 09-11-2024 Tobacco smoking status NHIS Smokes tobacco daily [facility] History of tobacco use Cigarette Smoker [facility] Work Phone: Start: 01-04-2024 Tobacco use and exposure Smokeless tobacco non-user [facility] Work Phone: Start: 01-04-2024 End: 08-01-2024 Alcoholic beverage intake Current drinker of alcohol (finding) [facility] Work Phone: Start: 06-19-2023 Alcohol Comment occasionally [facility] Work Phone: Start: 1960 Sex assigned at Not on file [facility] Work Phone: Start: 12-25-2023 End: 08-01-2024 Exposure to SARS-CoV-2 (event) Not sure [facility] Start: 08-14-2023 End: 09-11-2024 Tobacco smoking status NHIS Smoker (finding) [facility] Start: 08-07-2024 End: 09-11-2024 Sex Male (finding) [facility] Goals Date Patient Goal Desired Activity /State Clinical Notes 08-25-2021 to 09-11-2024 Note Date & Type Note Facility 09-11-2024 History and physi pascual note [facility] 09-11-2024 Procedure note [facility] 08-15-2024 Evaluation note Diagnosis Onset Date Resolution Colon cancer screening acute Ap ril 2024 10:00am GERD without esophagitis acute August 15, 2024 10:00am Post-cholecystectomy syndrome acute August 15, 2024 10:00am 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, 2024 10:00am Lung nodule acute August 19, 2 025 2:18pm Tobacco use disorder acute Apri l 2024 2:18pm [facility] Work Phone: 1(419) 197-427504-25-2025 Evaluation note* Diagnosis Onset Date Resolution Status Admit Date Colon cancer screening acute Ap ril 2024 10:00am GERD without esophagitis acute August 15, 2024 10:00am 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 Room: Type: [facility] Attending Dr: Kelechi Martin MD Copies to: Kelechi Martin MD~ Ordering Provider: Kelechi Martin MD Date of Service: 08/06/24 CT/CT lung screening: F17.200 - Nicotine dependence, unspecified, uncomplicated CT CHEST WITHOUT CONTRAST, LOW DOSE SCREENING: CLINICAL DATA: A 64-year old current smoker, smoking for 40 pack-years. COMPARISON: CT chest 08/07/2023 TECHNIQUE: Noncontrast axial CT scan images of the chest were obtained under thelow dose screening CT protocol. Coronal and sagittal reconstructed images were also submitted. FINDINGS: Mediastinum : Suboptimal evaluation due to low-dose technique. Thoracic aorta appears normal in caliber. Pulmonary trunk appears nondilated. No pericardial effusion. No lymphadenopathy. The esophagusis grossly unremarkable. Lungs: No focal consolidation, pneumothorax or pleural effusion. Trachea and distal airways appear patent. Scattered ground glass/reticular changes similar to the prior study. Diffuse bronchial wall thickening. Emphysema. Stable 7 mm noncalcified pulmonary nodule left upper lobe series 2 image 102. No new or enlarging suspicious pulmonary nodules. Upper abdomen: No acute findings. Bony thorax and chest wall: Soft tissues surrounding the chest wall demonstrate no acute findings. Osseous structures demonstrate degenerative change. CT/CT lung screening IMPRESSION: NO NEW OR ENLARGING SUSPICIOUS PULMONARY NODULE. LUNG - RADS Version 1.0 Assessment: Category 2, Benign appearance or behavior. Management: Continue annual lung screening with LDCT in 12 months. Impression dictated by: Yannick Lockwood Jr., D.O.08/06/2024 12:58 PM Dictation Location: [place] [address] Transcribed By: [facility] 08/06/24 1258 Dictated By: Yannick Lockwood Jr, DO 08/06/24 125 Signed By: 08/06/24 1258 [facility]04-11-2025 History of Present illness Narrative * Carly Gamble MD - 08/01/2024 1:30 PM EDT Chief Complaint Patient presents with Follow-up Patient here for 6 month follow up, c/o occasional irregular heartbeat with dizziness and fatigue, will last approximately a day. Subjective Abhinav Felix is a 64 y.o. male HPI Abhinav is in the office for follow-up for paroxysmal atrial fibrillation treated with warfarin and Multaq after having an ablation in the past that has failed. He continued to have intermittent episodeof atrial fibrillation lasting for several hours up to 1 day and apparently the heart rate is not fast enough for him to worry about. His INR is managed by the Coumadin clinic. He had lab data that was done last week which I reviewed today. His CBC and basic metabolic profile were normal, he reported to me having lipid profile as well which I did not receive, when it becomes available to me for my review I will update the patient. His drinking habits are limited to once a week. He continues to smoke cigarettes. He was again cautioned against continuous tobacco use. His weight remains above target BMI 30.9 kg/m with no significant changes from last visit. ASSESSMENT AND PLAN: 1. Paroxysmal atrial fibrillation, status post ablation twice with recurrences, currently on Multaqand Coumadin.. EKG today confirmed normal sinus rhythm and normal intervals. Patient continued to have intermittent atrial fibrillation almost on a weekly basis but he seemed to tolerate it fairly well. No specific trigger is noticed. 2. Class I obesity. Patient was advised to work harder on losing weight with low-calorie diet and exercise. 3. Active tobacco abuse. He was counseled again for tobacco cessation. He has failed multiple timesin the past to quit smoking. 4. High-risk medication with Multaq and Coumadin, both of which have been well tolerated. 5. Remote history of TIA with no recurrences 6. Dyslipidemia, currently on pravastatin, recent lab data from [facility] were requested. Review of Systems Constitutional: Positive for malaise/fatigue. Cardiovascular: Positive for irregular heartbeat. Neurological: Positive for dizziness. All other systems reviewed and are negative. EKG done in office today Vitals: 08/01/24 1319 BP: 132/70 BP Location: Right arm Patient Position: Sitting Pulse: 58 Weight: 101 kg (221 lb 9.6 oz) Height: 1.803 m (5' 11 ) Objective Physical Exam Constitutional: Appearance: Normal appearance. HENT: Nose: Nose normal. Neck: Vascular: No carotid bruit. Cardiovascular: Rate and Rhythm: Normal rate. Pulses: Normal pulses. Heart sounds: Normal heart sounds. Pulmonary: Effort: Pulmonary effort is normal. Abdominal: General: Bowel sounds are normal. Palpations: Abdomen is soft. Musculoskeletal: General: Normal range of motion. Cervical back: Normal range of motion. Right lower leg: No edema. Left lower leg: No edema. Skin: General: Skin is warm and dry. Neurological: General: No focal deficit present. Mental Status: He is alert. Psychiatric: Mood and Affect: Mood normal. Behavior: Behavior normal. Thought Content: Thought content normal. Judgment: Judgment normal. Allergies Crestor [rosuvastatin], Dabigatran etexilate, and Penicillins Current Medications Current Outpatient Medications: bisoprolol (Zebeta) 5 mg tablet, TAKE 1 TABLET DAILY (STOP BYSTOLIC NEW START), Disp: 90 tablet, Rfl: 3 dronedarone (Multaq) 400 mg tablet, Take 1 tablet (400 mg) by mouth 2 times daily (morning and lateafternoon)., Disp: 180 tablet, Rfl: 3 pravastatin (Pravachol) 20 mg tablet, Take 1 tablet (20 mg) by mouth once daily in the evening., Disp: 90 tablet, Rfl: 3 RABEprazole (Aciphex) EC tablet, Take 1 tablet (20 mg) by mouth once daily., Disp: , Rfl: warfarin (Coumadin) 5 mg tablet, Take 1 tablet (5 mg) by mouth. As directed as directed by [facility], Disp: , Rfl: Assessment/Plan 1. Paroxysmal atrial fibrillation (Multi) Follow Up In Cardiology Follow Up In Cardiology ECG 12 Lead 2. High risk medication use ECG 12 Lead 3. High triglycerides 4. Palpitations 5. Mixed hyperlipidemia 6. PVC (premature ventricular contraction) 7. Stage 3a chronic kidney disease (Multi) 8. BMI 30.0-30.9,adult 9. Current every day smoker Scribe Attestation By signing my name below, I, Nicolasa Simpson RN , Scribe attest that this documentation has been prepared under the direction and in the presence of Carly Gamble MD. Provider Attestation - Scribe documentation All medical record entries made by the Scribe were at my direction and personally dictated by me. Ihave reviewed the chart and agree that the record accurately reflects my personal performance of the history, physical exam, discussion and plan. [facility] Work Phone: 1(758) 427-542904-11-2025 Instructions* Patient Instructions* Nicolasa Bradshaw RN - 08/01/2024 1:30 PM EDT Please bring all medicines, vitamins, and herbal supplements with you when you come to the office. Prescriptions will not be filled unless you are compliant with your follow up appointments or have a follow up appointment scheduled as per instruction of your physician. Refills should be requested at the time of your visit. BMI was above normal measurement. Current weight: 101 kg (221 lb 9.6 oz) Weight change since last visit (-) denotes wt loss -0.4 lbs Weight loss needed to achieve BMI 25: 42.7 Lbs Weight loss needed to achieve BMI 30: 7 Lbs Provided instructions on dietary changes Provided instructions on exercise. [facility] in [facility] Work Phone: 1(692) 812-533502-22-2025 Evaluation note* Diagnosis Onset Date Resolution Status Admit Date Dizziness acute June 14, 2024 9:03am Shortness of breath acute Febru [email or web address] 9:03am Viral URI with cough acute 2024 9:03am Colon cancer screening acute Fe bruary 2024 10:45am Post-cholecystectomy syndrome acute June 17, 2024 10:45am Shortness of breath acute Febru [email or web address] 10:45am Tobacco use disorder acute 2024 10:45am [facility] Work Phone: 1(133) 779-715009-13-2024 History of Present illness Narrative* Carly Gamble MD - 01/04/2024 12:50 PM EDT Subjective Abhinav Felix is a 63 y.o. male Chief Complaint Follow-up HPI Patient is in the office for follow-up for paroxysmal atrial fibrillation. He remains sinus rhythm on Multaq and chronic anticoagulation with warfarin. He last nearly 30 pounds since he was last seenand this followed a viral illness which he recovered quickly from but has maintained his weight down. Blood work from August 2023 was reviewed and there was no concern noted. This was shared with the patient. ECG revealed sinus rhythm with PACs and left anterior fascicular block. He has no indication of breakthrough atrial fibrillation and no bleeding complications. He continues to smoke something that he has been continuously advised against. He maintains active lifestyle. Apart from class I obesity his examination was normal. ASSESSMENT AND PLAN: 1. Paroxysmal atrial fibrillation, status post ablation twice with recurrences, currently on Multaqand Coumadin.. EKG today confirmed normal sinus rhythm and normal intervals. 2. Class I obesity. Patient has lost significant weight since his last visit and was advised to continue on the same path. 3. Active tobacco abuse. He was counseled again for tobacco cessation. He has failed multiple timesin the past to quit smoking. 4. High-risk medication with Multaq and Coumadin, both of which have been well tolerated. 5. Remote history of TIA with no recurrences 6. Dyslipidemia, currently on pravastatin and under control. Review of Systems All other systems reviewed and are negative. Vitals: 01/04/24 1251 BP: 118/64 BP Location: Left arm Patient Position: Sitting Pulse: 63 Weight: 101 kg (222 lb) Height: 1.803 m (5' 11 ) Objective Physical Exam Constitutional: Appearance: Normal appearance. HENT: Nose: Nose normal. Neck: Vascular: No carotid bruit. Cardiovascular: Rate and Rhythm: Normal rate. Pulses: Normal pulses. Heart sounds: Normal heart sounds. Pulmonary: Effort: Pulmonary effort is normal. Abdominal: General: Bowel sounds are normal. Palpations: Abdomen is soft. Musculoskeletal: General: Normal range of motion. Cervical back: Normal range of motion. Right lower leg: No edema. Left lower leg: No edema. Skin: General: Skin is warm and dry. Neurological: General: No focal deficit present. Mental Status: He is alert. Psychiatric: Mood and Affect: Mood normal. Behavior: Behavior normal. Thought Content: Thought content normal. Judgment: Judgment normal. Allergies Crestor [rosuvastatin], Dabigatran etexilate, and Penicillins Current Medications Current Outpatient Medications: bisoprolol (Zebeta) 5 mg tablet, Take 1 tablet (5 mg) by mouth once daily., Disp: 90 tablet, Rfl: 3 dronedarone (Multaq) 400 mg tablet, Take 1 tablet (400 mg) by mouth 2 times daily (morning and lateafternoon)., Disp: 180 tablet, Rfl: 3 pravastatin (Pravachol) 20 mg tablet, Take 1 tablet (20 mg) by mouth once daily in the evening., Disp: 90 tablet, Rfl: 3 RABEprazole (Aciphex) EC tablet, Take 1 tablet (20 mg) by mouth once daily., Disp: , Rfl: warfarin (Coumadin) 5 mg tablet, Take 1 tablet (5 mg) by mouth. As directed as directed by [facility], Disp: , Rfl: Assessment/Plan 1. Paroxysmal atrial fibrillation (Multi) Follow Up In Cardiology 2. PVC (premature ventricular contraction) 3. TIA (transient ischemic attack) 4. Mixed hyperlipidemia 5. High risk medication use 6. Stage 3a chronic kidney disease (Multi) 7. BMI 30.0-30.9,adult 8. Current every day smoker Scribe Attestation By signing my name below, Ladonna Patricio LPN , Scribe attest that this documentation has been prepared under the direction and in the presence of Carly Gamble MD. Provider Attestation - Scribe documentation All medical record entries made by the Scribe were at my direction and personally dictated by me. Ihave reviewed the chart and agree that the record accurately reflects my personal performance of the history, physical exam, discussion and plan. documented in this encounterC[facility] Foundation Work Phone: 1(542) 859-284609-13-2024 Instructions* Patient Instructions* Ladonna Zendejas LPN - 01/04/2024 12:50 PM EDT Please bring all medicines, vitamins, and herbal supplements with you when you come to the office. Prescriptions will not be filled unless you are compliant with your follow up appointments or have a follow up appointment scheduled as per instruction of your physician. Refills should be requested at the time of your visit. EKG done in office today BMI was above normal measurement. Current weight: 101 kg (222 lb) Weight change since last visit (-) denotes wt loss -19 lbs Weight loss needed to achieve BMI 25: 43.1 Lbs Weight loss needed to achieve BMI 30: 7.4 Lbs Provided instructions on dietary changes Provided instructions on exercise. * Attachments The following attachments cannot be sent through Care Everywhere. * Heart Healthy Diet (Estonian) documented in this encounterC[facility] Foundation Work Phone: 1(870) 647-963610-24-2023 Evaluation note* Encounter Date Diagnosis Assessment Notes Treatment Notes Treatment Clinical Notes Jan, Lung nodule (ICD-10 - R91.1) Jan, Tobacco use disorder (ICD-10 - F17.200) [employer] Other 10-20-2023 Evaluation note* Encounter Date Diagnosis Assessment Notes Treatment Notes Treatment Clinical Notes Jan, Benign paroxysmal positional vertigo, unspecified laterality (ICD-10 - H81.10) Order printed for PT. Pt will call and set up appt. Jan, Mixed hyperlipidemia (ICD-10 - E78.2) Recheck labs. Pt had adverse side effects to crestor. [facility] Other 07-18-2023 Evaluation note* Encounter Date Diagnosis Assessment Notes Treatment Notes Treatment Clinical Notes Oct, Lung nodule (ICD-10 - R91.1) Oct, Nicotine dependence, cigarettes, uncomplicated (ICD-10 - F17.210) [facility] Other 05-15-2023 Evaluation note* Encounter Date Diagnosis [...] Dr. Finley - will set up with [facility] August, Nicotine dependence, cigarettes, uncomplicated (ICD-10 - F17.210) agrees to LDCT and chantix. discussed side effects of chantix. August, Screening for colon cancer (ICD-10 - Z12.11) agrees to cologuard August, GERD without esophagitis (ICD-10 - K21.9) requests refill of Aciphex. [facility] Other 05-05-2022 Hospital Discharge instructions Follow Up Care 08/25/2021 11:29:08 With:Jeancarlos GUDINO DO, [facility] Address: [address] [place] [address]- When:Within 1 Year(s) [facility] [place] Evaluation + Plan note Future Appointments Appointment Date:09/16/2021 04:00:00 PM Scheduled [facility]: [facility] () Appointment Date:09/11/2022 10:00:00 AM Scheduled Provider:Jeancarlos GUDINO DO Location:[facility] Appointment Type: Open Future Scheduled Tests Laboratory* PSA Screen, Total 08/29/21 * CBC w/ Auto Diff 08/29/21 * Comprehensive Metabolic Panel 08/29/21 * Lipid Panel 08/29/21 Radiology* MRI Brain w/o Contrast 09/16/21 [facility] [place] Evaluation noteNo InformationNort [email or web address] Other Evaluation noteNo assessment information available [facility] Work Phone: Evaluation note* Diagnosis Paroxysmal atrial fibrillation (Multi) Atrial fibrillation PVC (premature ventricular contraction) Other premature beats TIA (transient ischemic attack) Unspecified transient cerebral ischemia Mixed hyperlipidemia High risk medication use Stage 3a chronic kidney disease (Multi) BMI 30.0-30.9,adult Current every day smoker documented in this encounter [facility] Work Phone: Evaluation note* Diagnosis Obesity, Class I, BMI 30-34.9- Primary Paroxysmal atrial fibrillation (Multi) Atrial fibrillation High risk medication use High triglycerides Unspecified disorder of lipoid metabolism Palpitations Mixed hyperlipidemia PVC (premature ventricular contraction) Other premature beats BMI 30.0-30.9,adult Current every day smoker documented in this encounter [facility] Work Phone: History and physical note Author Chas Dean [facility] Note Date/Time September 11, 2024 9:50a m [facility] [address] [place] [address] Gastroenterology H&P Signed Patient: Abhinav Felix MR#: [id number] : 1960 Acct:[id number] Age/Sex: 64 / M Adm Date: 5 Loc: Room: Type: [facility] Attending Dr: Chas Dean MD Copies to: MD Regi Jaramillo MD~ Date of Service: 09/11/2024 HISTORY & PHYSICAL: Patient's history with special attention to the cardiovascular, pulmonary systems and the current problem was reviewed with the patient immediately prior to the procedure. Present medications and doses reviewed in the EMR. Allergies and pertinent laboratory tests were also reviewedat this time in the EMR. The physical examination, as below, was then performed. Indication, assessment and HPI: 64-year-old male presents for screening colonoscopy Family history of GI malignancy? no PHYSICAL EXAMINATION Mouth and Pharynx : moist mucus membranes, normal dentition Eyes: EOM intact b/l, normal sclera Pulmonary: normal respiratory effort, able to speak in complete sentences Neurological: alert and oriented x3, moves all extremities Skin: non-jaundiced, warm and dry Abdomen: non-distended, normal to inspection Psych: Mental status and mood grossly normal REVIEW OF SYSTEMS Constitutional: Denies malaise, fevers Cardiovascular: Denies chest pain, palpitations Respiratory: Denies shortness of breath, wheezing Gastrointestinal: Per HPI Genitourinary: Denies dysuria, polyuria Musculoskeletal: Denies joint swelling, joint stiffness Neurological: Denies numbness, tingling Integumentary: Denies rashes, skin lesions Endocrine: Denies fatigue, weight loss Written informed consent obtained from the patient. Risks (including but not limited to perforation, infection, bloating, bleeding, need for emergent surgeryand loss of life), benefits and alternatives explained and questions answered. The patient verbalized understanding. Based on history patient is an appropriate candidate for the procedure. Chas Dean MD Documented By: Chas Dean MD 09/11/24855 Signed By: <Electronically signed by Chas Dean MD> 09/11/24855 [facility] Work Phone: History general Narrative - Reported* Type Description Date Medical History Afib Medical History IBS Medical History Protruding disc C4-C5 Surgical History Cholecystectomy 2005 Surgical History Ablation on heart Surgical History Colonoscopy - Dr. Estes 2005 [facility] Other Hospital course Narrative No data available for this section [facility] Reason for referral (narrative)No reason for referral [facility] Work Phone: Reason for visit Narrative* Indication: Atrial fibrillation [...] Enrollment sent to: [employer] * Monitor number [id number] applied. * Holter monitor printed and placed on Dr. Higinio Tyson MD desk to dictate. [facility] 250 DO Work Phone: Summary Purpose Family History Unknown Family Member Name Dates Details Adopted: [...] Relationship Condition Age at Onset Recorded Date/T jacqueline father Unknown Not Specified Unknown Relationship Condition Age at Onset Recorded Date/T jacqueline father Unknown mother Unknown Relationship Condition Age at Onset Recorded Date/T jacqueline Not Specified Adopted Unknown father Unknown mother Unknown Advance Directives Advance Directive Response Recorded Date/ Time Advance Directives No October 09 11:46am Advance Directive Response Recorded Date/ Time Advance Directives Yes September 11 10:21am Chief Complaint * ABHINAV FELIX is being [...] in 6 months. * Carly Gamble MD, [facility] * ABHINAV FELIX is being seen for [...] any palpitations since he started taking magnesium [id number]. He is on Multaq and his rhythm [...] Visit Chief Complaint Amb Documentation R91.1 . 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 Shortness of breath June 17, 2024 10:45am Tobacco use disorder June 17, 2024 10:45am Chief Complaint Admit Date F17.200 August 06, 2024 12: 36pm Ref: postcholecystectomy syndrome, yello w stools August 15, 2024 10:00am CEA: 1 yr f/u LDCT August 19, 2024 2:1 8pm Screening September 11, 2024 7:07a m Screening September 11, 2024 8:56a m Reason for Visit Admit Date Colon cancer screening August 15, 2024 10:00am GERD without esophagitis August 15 10:00am Post-cholecystectomy syndrome July 10:00am 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, 2024 10:00am Lung nodule August 19, 2024 2:1 8pm Tobacco use disorder August 19, 2024 2: 18pm Chief Complaint Admit Date Ref: postcholecystectomy syndrome, yello w stools August 15, 2024 10:00am CEA: 1 yr f/u LDCT August 19, 2024 2:1 8pm Screening September 11, 2024 7:07a m Screening September 11, 2024 8:56a m sinus pressure November 05, 2024 1:03 pm Reason for Visit Admit Date Colon cancer screening August 15, 2024 10:00am GERD without esophagitis August 15 10:00am Post-cholecystectomy syndrome July 10:00am 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 2, [place] [address] [place] [id number] Referral ID Status Reason Start Date Expiration Date V isits Requested Visits Authorized [id number] Authorized 01/04/2024 01/03/2025 1 1 Specialty Diagnoses / Procedures Referred By Contac t Referred To Contact Cardiology Diagnoses Paroxysmal atrial fibrillation (Multi) Procedures Follow Up In Cardiology Carly Gamble MD [address] [facility] 2, [place] [place] [address] Carly Gamble MD [facility] [facility] 2, [address] [address] Referral ID Status Reason Start Date Expiration Date V isits Requested Visits Authorized [id number] Authorized 01/04/2024 01/03/2025 1 1 Additional Source Comments (unrecognized sect ion and content) No Status Records FoundNo Status Records FoundNo Status Records FoundNo Status Records FoundNo Status Records FoundNo Status Records FoundNo Status Records FoundNo Status Records FoundNo Status Records Found INFORMATION SOURCE (unrecogn ized section and content) DATE CREATED AUTHOR 10/16/2017 [facility] DATE CREATED AUTHOR AUTHOR'S ORGANIZ ATION 01/30/2018 [facility] DATE CREATED AUTHOR AUTHOR'S ORGANIZ ATION 02/14/2019 [facility] DATE CREATED AUTHOR AUTHOR'S ORGANIZ ATION 07/31/2022 [facility] DATE CREATED AUTHOR AUTHOR'S ORGANIZ ATION 09/05/2022 [facility] DATE CREATED AUTHOR AUTHOR'S ORGANIZ ATION 12/13/2022 [facility] DATE CREATED AUTHOR AUTHOR'S ORGANIZ ATION 12/13/2022 [facility] DATE CREATED AUTHOR AUTHOR'S ORGANIZ ATION 08/07/2024 [facility] DATE CREATED AUTHOR AUTHOR'S ORGANIZ ATION 09/21/2024 [facility] Reason for Visit (unrecogniz ed section and content) Reason Comments Follow-up 6mo Specialty Diagnoses / Procedures Referred By Contac t Referred To Contact Cardiology Diagnoses Paroxysmal atrial fibrillation (Multi) Procedures Follow Up In Cardiology Carly Gamble MD [address] [place] [address] [address], [address] [address] Carly Gamble MD [address] [place] [address] [address], [address] [address] Referral ID Status Reason Start Date Expiration Date V isits Requested Visits Authorized [id number] Authorized 06/19/2023 06/18/2024 1 1 Reason Comments Follow-up Patient here for 6 m [facility] follow up, c/o occasional irregular heartbeat with dizziness and fatigue, will last approximately a day. Specialty Diagnoses / Procedures Referred By Contac t Referred To Contact Cardiology Diagnoses Paroxysmal atrial fibrillation (Multi) Procedures Follow Up In Cardiology Carly Gamble MD [address] [facility] 2, [address] [address] Phone: tel: fax: Carly Gamble MD [address] [place] [address] [address], [address] [address] Phone: tel: fax: Referral ID Status Reason Start Date Expiration Date V isits Requested Visits Authorized [id number] Authorized 01/04/2024 01/03/2025 1 1 Care Teams (unrecognized sec tion and content) Team Status: Active Member Role Status Dates Regi Leong MD Primary Care Provider Active Team Status: Inactive Member Role Status Dates Regi Leong MD Primary Care Provider Active Start: August 15, 2024 End: August 15, 2024 Chas Dean MD Attending Provider Active S tart: August 15, 2024 End: August 15, 2024 Team Status: Inactive Member Role Status Dates Regi Leong MD Primary Care Provider Active Start: August 19, 2024 End: August 19, 2024 Kelechi Martin MD Attending Provider Active Start: August 19, 2024 End: August 19, 2024 Team Status: Inactive Member Role Status Dates Regi Leong MD Primary Care Provider Active Start: September 11, 2024 End: September 11, 2024 Chas Dean MD Attending Provider Active S tart: September 11, 2024 End: September 11, 2024 Team Status: Active Member Role Status Dates Regi Leong MD Primary Care Provider Active Start: September 11, 2024 Chas Dean MD Attending Provider Active S tart: September 11, 2024 Chas Dean MD Other Provider Active Start : September 11, 2024 Team Status: Inactive Member Role Status Dates Regi Leong MD Primary Care Provider Active Start: November 05, 2024 End: November 05, 2024 Regi Leong MD Attending Provider Active St art: November 05, 2024 End: November 05, 2024 Team Status: Active Member Role Status Dates Regi Leong MD Primary Care Provider Active Team Status: Active Member Role Status Dates Regi Leong MD Primary Care Provider Active Start: July 25, 2024 Carly Gamble MD Attending Provider Active St art: July 25, 2024 Team Status: Inactive Member Role Status Dates Regi Leong MD Primary Care Provider Active Start: August 06, 2024 End: August 06, 2024 Kelechi Martin MD Attending Provider Active Start: August 06, 2024 End: August 06, 2024 Team Status: Inactive Member Role Status Dates Regi Leong MD Primary Care Provider Active Start: August 15, 2024 End: August 15, 2024 Chas Dean MD Attending Provider Active S tart: August 15, 2024 End: August 15, 2024 Team Status: Inactive Member Role Status Dates Regi Leong MD Primary Care Provider Active Start: August 19, 2024 End: August 19, 2024 Kelechi Martin MD Attending Provider Active Start: August 19, 2024 End: August 19, 2024 Team Status: Inactive Member Role Status Dates Regi Leong MD Primary Care Provider Active Start: September 11, 2024 End: September 11, 2024 Chas Dean MD Attending Provider Active S tart: September 11, 2024 End: September 11, 2024 Team Status: Active Member Role Status Dates Regi Leong MD Primary Care Provider Active Start: September 11, 2024 Chas Dean MD Attending Provider, Other Provide r Active Start: September 11, 2024 Team Status: Inactive Member Role Status Dates Regi Leong MD Primary Care Provider Active Start: June 14, 2024 End: June 14, 2024 Sandi Collazo APRN Attending Provider Active S tart: June 14, 2024 End: June 14, 2024 Team Status: Inactive Member Role Status Dates Regi Leong MD Primary Care Provide r, Attending Provider Active Start: June 17, 2024 End: June 17, 2024 Team Status: Active Member Role Status Dates Regi Leong MD Primary Care Provide r, Attending Provider Active Start: June 12, 2023 Team Status: Active Member Role Status Dates Rgei Leong MD Primary Care Provider Active Start: July 27, 2023 POONAM Reynolds Attending Provider Active Start : July 27, 2023 Team Status: Inactive Member Role Status Dates Regi Leong MD Primary Care Provider Active Start: August 07, 2023 End: August 07, 2023 Uche Porter MD Attending Provider Active Star t: August 07, 2023 End: August 07, 2023 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, [place] [address] Consulting Physician Cardiology 06/19/23 Team Status: Active Member Role Status Dates Regi Leong MD Primary Care Provider Active Start: September 11, 2024 Chas Dean MD Attending Provider Active S tart: September 11, 2024 Chas Dean MD Other Provider Active Start : September 11, 2024 Team Status: Inactive Member Role Status Dates Regi Leong MD Primary Care Provider Active Start: November 05, 2024 End: November 05, 2024 Regi Leong MD Attending Provider Active St art: November 05, 2024 End: November 05, 2024 Goals (unrecognized section and content) Goals may [...] BE BASED ON THE PRIMARY CLINICAL RECORDS. [facility] provides no warranty or guarantee of the accuracy or completeness of information in this document.
--- NOTE | 2024-12-05 10:47 | ECG_ITS ---
The [facility] Test Date: 2024-12-05 Pat Name: ABHINAV FELIX Department: Room: - Gender: Male Aquarist: : 1960 Requested By: [id number] Order Number: [id number] Reading MD: BLANCA JOHNSON M.D. Measurements Intervals Sullivan Rate: 65 P: 45 OK: 192 QRS: -22 QRSD: 106 T: 30 QT: 410 QTc: 421 Interpretive Statements 1100 Sinus rhythm 1470 with occasional supraventricular premature complexes 5222 Moderate voltage criteria for LVH, may be normal variant 7202 Moderate left axis deviation 9140 abnormal rhythm ECG Compared to ECG 06/12/2017 05:57:33 Left-axis deviation now present Left anterior fascicular block no longer present Electronically Signed On 12-05-2024 20:52:57 EDT by BLANCA JOHNSON M.D.
--- NOTE | 2024-12-05 10:47 | CT_ITS ---
The [address] [address] Patient Name: ABHINAV FELIX MRN: [id number] date: 1960 Sex: M Assigned Patient Location: ER Current Patient Location: ER Accession/Order Number: [id number] Exam Date: 12/05/2024 11:57 Report Date: 12/05/2024 11:59 At the request of: BRUNA GUERRERO MD Procedure: CT head/brain wo con CT BRAIN WITHOUT CONTRAST: CLINICAL HISTORY: Diplopia, resolved COMPARISON: None TECHNIQUE: Contiguous axial unenhanced images were obtained through the brain. This CT exam was performed using one or more following dose reduction techniques: Automated exposure control, adjustment of the mA and/or kV according to patient size, or use of iterative reconstruction technique. FINDINGS: There is no evidence of midline shift, intra or extra-axial fluid collection, hemorrhage or CT evidence of stroke. Cortical atrophy with chronic microvascular ischemic changes. There is prominence of soft tissue along the floor of the fourth ventricle best seen on sagittal image 29. Visualized intraorbital contents demonstrate no acute findings. Visualized paranasal sinuses are clear. The surrounding soft tissues are normal. CT/CT head/brain wo con IMPRESSION: NO ACUTE INTRACRANIAL ABNORMALITY. THERE APPEARS TO BE SOFT TISSUE PROMINENCE ALONG THE FLOOR OF THE FOURTH VENTRICLE. FURTHER EVALUATION WITH MRI OF THE BRAIN WITH AND WITHOUT IV CONTRAST IS RECOMMENDED. Impression dictated by: Shruthi Mir Jr.OSwapna 12/05/2024 11:59 AM Dictation Location: [facility] Electronically authenticated by: [id number] Y Date: 12/05/2024 11:59
--- NOTE | 2024-12-05 10:47 | ED.GENADUL1 ---
HPI HPI - General Adult General Chief complaint: Eye Problems Stated complaint: IRREGULAR HEART BEAT , EYES CROSSED , SHORTNESS Time Seen by Provider: 12/05/24 10:36 Source: patient Mode of arrival: walk-in Limitations: no limitations History of Present Illness HPI narrative: 64-year-old male presents for double vision which is now resolved. 45 minutes ago he was sitting watching TV and suddenly he felt like his vision did not align and he was seeing double. This lasted for about a minute and during that time he felt like his heart was racing. He has a history of atrial fibrillation but has had 2 cardiac ablations. No headache or localized weakness. He feels back to normal now. Related Data Home Medications ?Medication ?Instructions ?Recorded ?Confirmed bisoprolol fumarate 5 mg tablet 5 mg PO DAILY 12/05/24 12/05/24 dronedarone 400 mg tablet (Multaq) 400 mg PO DAILY 12/05/24 pravastatin 20 mg tablet 20 mg PO DAILY 12/05/24 12/05/24 rabeprazole 20 mg tablet,delayed 40 mg PO Q24H 12/05/24 12/05/24 release warfarin 4 mg tablet 4 mg PO DAILY 12/05/24 12/05/24 Allergies Allergy/AdvReac Type Severity Reaction Status Date / Time dabigatran etexilate (From Allergy Mild bleeding Verified 12/05/24 10:38 Pradaxa) Penicillins Allergy Unknown Unknown Verified 12/05/24 10:38 Review of Systems ROS Narrative A ten point review of systems is negative except as noted above. PFSH PFSH Social History Little interest or pleasure in doing things: not at all Feeling down, depressed, or hopeless: not at all Exam Narrative Exam Narrative: Nurses note and vital signs reviewed and patient is not hypoxic. General: The patient appears well and in no apparent distress. Patient is resting comfortably on cart. Skin: Warm, dry, no pallor noted. There is no rash noted. Head: Normocephalic, atraumatic Eye: Normal conjunctiva, no drainage, EOMI. PERRL. Ears, Nose, Mouth, and Throat: oral mucosa is moist. Nares patent. Cardiovascular: Regular Rate and Rhythm Respiratory: Patient is in no distress, no accessory muscle use, lungs are clear to auscultation, no wheezing, rales or rhonchi Back: non-tender GI: Soft and nontender Musculoskeletal: The patient has no evidence of calf tenderness, no pitting edema, symmetrical pulses noted bilaterally Neurological: A&O x4, normal speech; upper and lower extremity strength 5 out of 5 and symmetric. Cranial nerves II through XII intact Psychiatric: Cooperative Constitutional Vital Signs, click to edit/add: Last Vital Signs Temp 98.1 F 12/05/24 10:34 Pulse 65 12/05/24 12:20 Resp 10 L 12/05/24 12:20 BP 131/73 12/05/24 12:17 Pulse Ox 97 12/05/24 10:36 O2 Del Method Room Air 12/05/24 10:34 Course Vital Signs Vital signs: Vital Signs Temperature 98.1 F 12/05/24 10:34 Pulse Rate 68 12/05/24 10:34 Respiratory Rate 20 12/05/24 10:34 Blood Pressure 164/88 H 12/05/24 10:34 Pulse Oximetry 97 12/05/24 10:34 Oxygen Delivery Method Room Air 12/05/24 10:34 Temperature 98.1 F 12/05/24 10:34 Pulse Rate 65 12/05/24 12:20 Respiratory Rate 10 L 12/05/24 12:20 Blood Pressure 131/73 12/05/24 12:17 Pulse Oximetry 97 12/05/24 10:36 Oxygen Delivery Method Room Air 12/05/24 10:34 Medical Decision Making MDM Narrative Medical decision making narrative: His symptoms have resolved and have not recurred. Note is made of the fourth ventricle finding on the CAT scan of this was discussed with the patient. He was recommended follow-up outpatient MRI. CTA head and neck did not show any significant stenosis. He is discharged home. Treatment diagnosis and follow-up were discussed with the patient. Differential Diagnosis Differential Diagnosis: Cranial nerve dysfunction, intracranial mass Lab Data Lab results reviewed: Yes I reviewed the patient's lab results Labs: Lab Results 12/05/24 Range/Units 10:55 WBC 7.6 (4.0-11.0) 10^3/uL RBC 5.39 (4.70-6.10) 10^6/uL Hgb 16.7 (14.0-18.0) g/dL Hct 48.2 (42.0-54.0) % MCV 89.4 (80.0-94.0) fL MCH 31.0 (25.9-34.0) pg MCHC 34.6 (29.9-35.2) g/dL RDW 12.6 (11.0-15.0) % Plt Count 188 (150-450) 10^3/uL MPV 10.5 (9.5-13.5) fL Neut % (Auto) 63.6 (43.0-75.0) % Lymph % (Auto) 22.4 (20.5-60.0) % [place] % (Auto) 10.3 (1.7-12.0) % Eos % (Auto) 2.5 (0.9-7.0) % Baso % (Auto) 0.8 (0.2-2.0) % Neut # (Auto) 4.8 (1.4-6.5) 10^3/uL Lymph # (Auto) 1.7 (1.2-3.8) 10^3/uL [place] # (Auto) 0.8 (0.3-0.8) 10^3/uL Eos # (Auto) 0.2 (0.0-0.7) 10^3/uL Baso # (Auto) 0.1 (0.0-0.1) 10^3/uL Abs Immat Gran (auto) 0.03 (0.00-0.03) 10^3/uL Imm/Tot Granulo (auto) 0.4 (0.0-0.5) % Sodium 139 (136-145) mmol/L Potassium 4.1 (3.5-5.1) mmol/L Chloride 103 (98-107) mmol/L Carbon Dioxide 26.9 (21.0-32.0) mmol/L Anion Gap 13.2 BUN 11.0 (7.0-18.0) mg/dL Creatinine 0.98 (0.70-1.30) mg/dL Est GFR ( Amer) >60 (>=60 mL/min/1.73m^2) Est GFR (Non-Af Amer) >60 (>=60 mL/min/1.73m^2) BUN/Creatinine Ratio 11.2 Glucose 151 H (74-106) mg/dL Calcium 8.4 L (8.5-10.1) mg/dL Imaging Data CT scan - head: Radiologist's impression: ITS Impressions Head CT 12/05/24 10:47 IMPRESSION: NO ACUTE INTRACRANIAL ABNORMALITY. THERE APPEARS TO BE SOFT TISSUE PROMINENCE ALONG THE FLOOR OF THE FOURTH VENTRICLE. FURTHER EVALUATION WITH MRI OF THE BRAIN WITH AND WITHOUT IV CONTRAST IS RECOMMENDED. Impression dictated by: Yannick oLckwood Jr., D.O. 12/05/2024 11:59 AM Dictation Location: [facility] Electronically authenticated by: [id number] Y Date: 12/05/2024 11:59 Head CTA 12/05/24 13:12 IMPRESSION: Negative for large vessel occlusion or hemodynamically significant stenosis. Scattered pulmonary nodularity with background of emphysema up to 8 mm in size. Consider CT chest if not recently performed. Impression dictated by: Jaden Castro M.D. 12/05/2024 2:27 PM Dictation Location: [facility] Electronically authenticated by: [id number] Y Date: 12/05/2024 14:27 Neck CTA 12/05/24 13:12 IMPRESSION: Negative for large vessel occlusion or hemodynamically significant stenosis. Scattered pulmonary nodularity with background of emphysema up to 8 mm in size. Consider CT chest if not recently performed. Impression dictated by: Jaden Castro M.D. 12/05/2024 2:27 PM Dictation Location: [facility] Electronically authenticated by: [id number] Y Date: 12/05/2024 14:27 ECG Data Attestation: I personally reviewed and interpreted this ECG as follows: (EKG on my interpretation shows sinus rhythm with a rate of 65 and the PAC) Discharge Plan Discharge Chief Complaint: Eye Problems Clinical Impression: Diplopia Patient Disposition: Home, Self-Care Time of Disposition Decision: 14:50 Condition: Good Mode of Transportation: Private Vehicle Prescriptions / Home Meds: No Action rabeprazole 20 mg tablet,delayed release (DR/EC) 40 mg PO Q24H warfarin 4 mg tablet 4 mg PO DAILY bisoprolol fumarate 5 mg tablet 5 mg PO DAILY pravastatin 20 mg tablet 20 mg PO DAILY Multaq 400 mg tablet 400 mg PO DAILY Print Language: Serbian Instructions: Diplopia (ED) Additional Instructions: Follow-up with your PCP regarding outpatient MRI. Referrals: Regi Chapman MD [Primary Care Provider, Family Practice] - 1 week
[2024-12-05 11:03] LABS: Hematocrit 48.2 % (42.0-54.0); Hemoglobin 16.7 g/dL (14.0-18.0); Immature Granulocytes Abs Auto 0.03 10^3/uL (0.00-0.03); Immature Granulocytes Pct Auto 0.4 % (0.0-0.5); Lymphocytes Absolute Auto 1.7 10^3/uL (1.2-3.8); Mean Corpuscular HGB Conc 34.6 g/dL (29.9-35.2); Mean Corpuscular Hemoglobin 31.0 pg (25.9-34.0); Mean Corpuscular Volume 89.4 fL (80.0-94.0); Platelet Count 188 10^3/uL (150-450); Red Blood Count 5.39 10^6/uL (4.70-6.10); White Blood Count 7.6 10^3/uL (4.0-11.0)
[2024-12-05 11:42] LABS: Anion Gap 13.2; Blood Urea Nitrogen 11.0 mg/dL (7.0-18.0); Calcium 8.4 mg/dL (8.5-10.1); Carbon Dioxide 26.9 mmol/L (21.0-32.0); Chloride 103 mmol/L (98-107); Estimated GFR (African America >60 (>=60 mL/min/1.73m^2); Estimated GFR (Non-African Ame >60 (>=60 mL/min/1.73m^2); Glucose 151 mg/dL (74-106); Potassium 4.1 mmol/L (3.5-5.1); Sodium 139 mmol/L (136-145)
--- NOTE | 2024-12-05 13:12 | CT_ITS ---
The [address] [address] Patient Name: ABHINAV FELIX MRN: [id number] date: 1960 Sex: M Assigned Patient Location: ER Current Patient Location: Accession/Order Number: [id number] Exam Date: 12/05/2024 14:15 Report Date: 12/05/2024 14:27 At the request of: BRUNA GUERRERO MD Procedure: CT angio head CT angiogram head and neck CLINICAL HISTORY: Resolved diplopia COMPARISON: None TECHNIQUE: CT angiogram images were obtained through the head and neck with coronal sagittal reformats. 3-D images of the cervical vasculature performed. MIP MPR images of the vasculature also generated.. This CT exam was performed using one or more following dose reduction techniques: Automated exposure control, adjustment of the mA and/or kV according to patient size, or use of iterative reconstruction technique. FINDINGS: Right lung nodule 5 mm in size. 8mm nodule left upper lobe Background of emphysema noted. Three-vessel arch. Great vessels are patent. Common carotid arteries, carotid bifurcations and cervical ICAs are patent. Mild plaque identified both bifurcations. No hemodynamically significant stenosis of the ICAs identified per NASCET criteria. Codominant vertebral arteries, patent throughout their cervical course. Mild plaque identified involving the intracranial ICAs. Left A1 is not visualized may be hypoplastic or aplastic. Otherwise, both ACAs are patent. Middle cerebral arteries are patent. Distal vertebral arteries join from the basilar artery. Basilar tip and bifurcation patent. origin left posterior cerebral artery. Right distal [employer] branches difficult to visualize unclear if this is due to artifact and/or technique. CT/CT angio neck IMPRESSION: Negative for large vessel occlusion or hemodynamically significant stenosis. Scattered pulmonary nodularity with background of emphysema up to 8 mm in size. Consider CT chest if not recently performed. Impression dictated by: Jaden Castro M.D. 12/05/2024 2:27 PM Dictation Location: [place] [address] Electronically authenticated by: [id number] Y Date: 12/05/2024 14:27
--- NOTE | 2024-12-05 13:12 | CT_ITS ---
The [address] [address] Patient Name: ABHINAV FELIX MRN: [id number] date: 1960 Sex: M Assigned Patient Location: ER Current Patient Location: Accession/Order Number: [id number] Exam Date: 12/05/2024 14:15 Report Date: 12/05/2024 14:27 At the request of: BRUNA GUERRERO MD Procedure: CT angio head CT angiogram head and neck CLINICAL HISTORY: Resolved diplopia COMPARISON: None TECHNIQUE: CT angiogram images were obtained through the head and neck with coronal sagittal reformats. 3-D images of the cervical vasculature performed. MIP MPR images of the vasculature also generated.. This CT exam was performed using one or more following dose reduction techniques: Automated exposure control, adjustment of the mA and/or kV according to patient size, or use of iterative reconstruction technique. FINDINGS: Right lung nodule 5 mm in size. 8mm nodule left upper lobe Background of emphysema noted. Three-vessel arch. Great vessels are patent. Common carotid arteries, carotid bifurcations and cervical ICAs are patent. Mild plaque identified both bifurcations. No hemodynamically significant stenosis of the ICAs identified per NASCET criteria. Codominant vertebral arteries, patent throughout their cervical course. Mild plaque identified involving the intracranial ICAs. Left A1 is not visualized may be hypoplastic or aplastic. Otherwise, both ACAs are patent. Middle cerebral arteries are patent. Distal vertebral arteries join from the basilar artery. Basilar tip and bifurcation patent. origin left posterior cerebral artery. Right distal [employer] branches difficult to visualize unclear if this is due to artifact and/or technique. CT/CT angio head IMPRESSION: Negative for large vessel occlusion or hemodynamically significant stenosis. Scattered pulmonary nodularity with background of emphysema up to 8 [address] chest if not recently performed. Impression dictated by: Jaden Castro M.D. 12/05/2024 2:27 PM Dictation Location: [place] [address] Electronically authenticated by: [id number] Y Date: 12/05/2024 14:27
== END 2024-12-05 15:08 | disposition home or self-care (01) ==
PROVIDERS: Emergency Provider Emergency Medicine; PCP Family Medicine
DX: H53.2 Diplopia (principal)
CPT/HCPCS: 36415; 70450; 70496; 70498; 80048; 85025; 93005; 99285; Q9967

== ENCOUNTER 2024-12-24 10:26 | Outpatient (OUT) | payer OTHER, SELFPAY ==
--- OUTSIDE RECORDS SUMMARY | 2024-12-24 12:53 | XMS_ITS | CCD ---
Author Organization [facility] Care Team Providers Care C2 Tactical Analysis Technician Name Role Phone PHYSICIAN, DEFAULT Unavailable Unavailable PHYSICIAN, DEFAULT Unavailable Unavailable KO GAMBLE Unavailable Unavailable TERESE, JARETT Unavailable Unavailable Jarett Gudino Unavailable Unavailable Unavailable Jarett GUDINO Primary Care Physician Jarett GUDINO Referring Unavailable TERESE, Jarett Finney Attending Unavailable TERESE, Jarett Finney Admitting Unavailable TERESE, Jarett Finney Attending Unavailable TERESE, Jarett Finney Attending Unavailable Jared Leong Unavailable TERESE, DR JARETT Finney Consulting Unavailable TERESE, DR JARETT Finney Admitting Unavailable TERESE, DR JARETT Finney Attending Unavailable TERESE, DR JARETT Finney Primary Care Unavailable TERESE, DR JARETT Finney Consulting Unavailable TERESE, DR JARETT Finney Attending Unavailable TERESE, DR JARETT Finney Primary Care Unavailable TERESE, DR JARETT Rodriguez Unavailable DRE, DR KO White Consulting Unavailable GAMBLE, DR KO White Attending Unavailable GAMBLE, DR KO White Admitting Unavailable TERESE, DR JARETT Finney Primary Care Unavailable TERESE, DR JARETT Finney Consulting Unavailable TERESE, DR JARETT Finney Attending Unavailable TERESE, DR JARETT Finney Admitting Unavailable TERESE, DR JARETT Finney Primary Care Unavailable SALO, DR JARED Jones Primary Care Unavailable SALO, DR JARED Jones Consulting Unavailable LEONG, DR JARED Jones Attending Unavailable SALO, DR JARED Jones Admitting Unavailable TERESE, DR JARETT Finney Attending Unavailable TERESE, DR JARETT Finney Admitting Unavailable TERESE, DR JARETT Finney Primary Care Unavailable TERESE, DR JARETT Finney Consulting Unavailable GAMBLE, DR KO White Consulting Unavailable GAMBLE, DR KO White Attending Unavailable GAMBLE, DR KO White Admitting Unavailable TERESE, DR JARETT Finney Primary Care Unavailable TERESE, DR JARETT Finney Attending Unavailable TERESE, DR JARETT Finney Admitting Unavailable TERESE, DR JARETT Finney Primary Care Unavailable TERESE, DR JARETT Finney Consulting Unavailable TERESE, DR JARETT Finney Consulting Unavailable TERESE, DR JARETT Finney Admitting Unavailable TERESE, DR JARETT Finney Attending Unavailable TERESE, DR JARETT Finney Primary Care Unavailable TERESE, DR JARETT Finney Consulting Unavailable TERESE, DR JARETT Finney Admitting Unavailable TERESE, DR JARETT Finney Attending Unavailable TERESE, DR JARETT Finney Primary Care Unavailable TERESE, DR JARETT Finney Consulting Unavailable TERESE, DR JARETT Finney Admitting Unavailable TERESE, DR JARETT Finney Attending Unavailable TERESE, DR JARETT Finney Primary Care Unavailable TERESE, DR JARETT Finney Consulting Unavailable TERESE, DR JARETT Finney Admitting Unavailable TERESE, DR JARETT Finney Attending Unavailable TERESE, DR JARETT Finney Primary Care Unavailable Uche Porter Unavailable Jared Leong Unavailable Terese, Dr. Jarett Dhillon [facility] Simranvafranck Gamble, Dr. Ko Godoy Attending Simran vailable Dre, Dr. Ko Godoy Referring Simran vailable Terese, Dr. Jarett Dhillon [facility] Unavai labaidan Gamble, Dr. Ko Godoy Attending Simran vailable Gamble, Dr. Ko Godoy Referring Simran vailable MD Jared Leong Primary Care Provider [phone] MD Uche Porter Attending Provider Jared Leong MD Primary Care Provider Ko Gamble MD Unavailable [phone] Jared Leong MD Primary Care Provider Ko Gamble MD Unavailable [phone] KO AGMBLE Attending Unavailable KO GAMBLE Referring Unavailable JARED LEONG Primary Care Unavailable KO GAMBLE Attending Unavailable KO GAMBLE Referring Unavailable JARED LEONG Primary Care Unavailable Jared Leong MD Primary Care Provider Sandi Collazo APRN Attending Provider Kelechi Martin MD Attending Provider Jared Leong MD Primary Care Provider Chas Dean MD Attending Provider Jared Leong Primary Care Unavailable Chas Dean Attending Unavailable Chas Dean Admitting Unavailable Jared Leong Primary Care Unavailable Kelechi Martin Attending Unavaila ble Kelechi Martin Admitting Unavaila ble Vale, Sandi M Attending Unavailable Vale Sandi M Admitting Unavailable Jared Leong Primary Care Unavailable Jared Leong MD Primary Care Provider Chas Dean MD Attending Provider Kelechi Martin MD Attending Provider Chas Dean MD Other Provider Jared Leong MD Attending Provider Jared Leong MD Primary Care Provider Shon Rosario DO Attending Provider [phone] America Gallegos CMA Attending Provider Unavaila ble Allergies Allergy Classification Reported Allergen(s) Allergy Type Date of Onset Reaction(s) Facility (19 sources) dabigatran etexilate; Translations: [Pradaxa CAPS] Drug Allergy 4 [facility] (18 sources) Penicillins; Translations: [Penicillins] Allergy to drug (finding) [address] Work Phone: (2 sources) dabigatran etexilate; Translations: [dabigatran] Drug Allergy Rectal hemorrhage (disorder), Bleeding from nose (finding), Incontinence (finding) [facility] [place] (8 sources) Penicillin; Translations: [penicillin] Drug Allergy 7 anaphylaxis [facility] (7 sources) dabigatran etexilate; Translations: [DABIGATRAN ETEXILATE] Drug Allergy 4 bleeding [facility] (1 source) Penicillins Drug Allergy 4 Unknown [facility] Work Phone: (3 sources) rosuvastatin; Translations: [ROSUVASTATIN] Drug Allergy 4 Myalgia [facility] (1 source) Penicillins Drug Allergy 4 Unknown [facility] Work Phone: (1 source) Penicillins Drug allergy (disorder) 5 [facility] (1 source) buPROPion Drug Allergy 5 Depression [facility] Comment on above: Took wellbutrin for smoking cessation and felt very bad w depressive symptoms. Medications Current Medications Medication Drug Class(es) Dates Sig (Normalized) Sig (Original) Aciphex 20 mg Tab-EC (1 source) Start: 05-21-2021 take 1 tablet by mouth once daily Aciphex 20 mg Tab-EC 20 mg = 1 tab(s), Oral, Daily, # 90 tab(s), Refills(s) 3, Pharmacy: [facility], 180.3, cm, 05/20/20 15:18:00 EST, [...] resin 4000 mg powder for oral suspension (10 sources) Bile Acid Sequestrant Start: 08-26-2024 Cholestyramine 4 gram powder Active 4 GM PO As Directed August 26, 2024 12:00am Complies with drug therapy Start: 12-02-2018 Questran 4 g/9 g oral powder = 1 packet(s), Oral, BID, # 60 EA, Refills(s) 5, Pharmacy: [facility] Start Date: 12/02/18 Status: Ordered [...] MEAL Quantity: 180 Refills: 3 Ordered: 12-Dec-2022 Ko Gamble MD Start : 03-Feb-2021 Active magnesium [...] DAILY. Quantity: 90 Refills: 3 Ordered: 24-May-2021 Ko Gamble MD Start : 24-May-2021 Active New [...] daily Quantity: 90 Refills: 3 Ordered: 12-Dec-2022 Ko Gamble MD Start : 03-Feb-2021 Active pravastatin sodium 40 mg oral tablet (7 sources) HMG-CoA Reductase Inhibitor Start: 08-14-2023 take [...] night Quantity: 30 Refills: 5 Ordered: 05-Jan-2023 Ko Gamble MD Start : 05-Jan-2023 Active new replaces crestor RABEprazole sodium 20 mg delayed release oral tablet (20 sources) Proton Pump Inhibitor Start: 09-03-2023 End: 12-16-2024 Rabeprazole 20 mg tablet,delayed release (DR/EC) Active 0 .ROUTE .COMPLEX December 16, 2024 9:53am TAKE 1 TABLET DAILY Complies with drug [...] Drug Class(es) Dates Sig (Normalized) Sig (Original) [id number] 200 actuat albuterol 0.09 mg/actuat metered dose inhaler (4 sources) beta2-Adrenergic Agonist Start: 06-17-2024 End: 08-15-2024 take 1 puff(s) by inhalation every four to six hours as needed for wheezing Albuterol Sulfate 90 mcg/actuation HFA aerosol inhaler Discontinued 2 PUFF INHALATION EVERY 4-6 HOURS as needed for shortness of breath or wheezing 8.June 17, 2024 1:00am August 15, 2024 10:05am 12 hr buPROPion hydrochloride 150 mg extended release oral tablet (16 sources) Aminoketone Start: 08-01-2023 End: 08-14-2023 take 1 tablet by mouth twice daily Bupropion Hcl 150 mg tablet sustained-release 12 hr Discontinued 150 MG PO Twice daily 180 90 August 01, 2023 8:55am August 14, 2023 3:05pm Start: 07-27-2023 End: 08-01-2023 take 1 tablet by mouth once daily Bupropion Hcl 150 mg tablet sustained-release 12 hr Discontinued 150 MG PO Daily 90 July 27, 2023 10:47pm August 01, 2023 8:56am Wellbutrin SR 15 0 MG 1 tablet in the morning Orally Once a day x 3 days, then bid for 30 days Active colestipol hydrochloride 5000 mg granules for oral suspension (12 sources) Bile Acid Sequestrant Start: 08-07-2023 End: [...] take 2 capsules by mouth twice daily [place] 3 1000 MG Oral Capsule TAKE 2 [...] DAILY. 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] 06-17-2024 [...] 3 Conditions associated with dizziness or vertigo (8 sources) Dizziness and giddiness; Translations: [Dizziness and giddiness] Onset: 2 Episodic Disorders of lipid metabolism (20 sources) Hypertriglyceridemia; Translations: [Pure hyperglyceridemia] Onset: 3 Resolved: 3 Chronic Esophageal disorders (15 sources) Gastroesophageal reflux disease; Translations: [GERD [Gastroesophageal reflux disease]] Chronic Mood disorders (2 sources) Seasonal affective disorder; Translations: [Major depressive disorder, recurrent, in remission, unspecified] 11-05-2024 Chronic Other aftercare (6 sources) Drug therapy finding; Translations: [Long-term (current) use of other medications] Episodic Other aftercare (4 sources) Encounter for therapeutic drug level monitoring; Translations: [ENC THERAPEUTC DRUG LEVL MONITORING] Onset: 3 Episodic Other aftercare (5 sources) Taking high risk medication; Translations: [Other [place] [facility] [place] drug therapy] Onset: 4 01-04-2024 Episodic Other ear and sense organ disorders (1 source) Hearing loss; Translations: [Unspecified hearing loss, right ear] Onset: 2 Chronic Other ear and sense organ disorders (1 source) Hearing loss of right ear 09-09-2021 Chronic Other gastrointestinal disorders (5 sources) Other intestinal malabsorption; 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 Other lower respiratory disease (10 sources) Nodule of lung; Translations: [Solitary pulmonary nodule] 08-11-2023 Episodic Other lower respiratory disease (3 sources) Solitary pulmonary nodule; Translations: [Solitary pulmonary nodule] Episodic Other lower respiratory disease (4 sources) Dyspnea; Translations: [Shortness of breath] 06-14-2024 Episodic Other nervous system disorders (2 sources) Trigeminal neuralgia; Translations: [Trigeminal neuralgia] Onset: 2 Episodic Other non-traumatic joint disorders (4 sources) Hip pain; Translations: [Pain in right [...] nutritional; endocrine; and metabolic disorders (4 sources) Weight decreased; Translations: [Abnormal weight loss] 09-12-2023 Episodic Other screening for suspected conditions (not mental disorders or infectious disease) (12 sources) CT of chest abnormal; Translations: [Abnormal findings on diagnostic imaging of other specified body structures] Chronic Other screening for suspected conditions (not mental disorders or infectious disease) (15 sources) Encounter for screening for malignant neoplasm of prostate; Translations: [Encounter for screening for malignant neoplasm of colon] Onset: 5 Episodic Other upper respiratory infections (4 sources) Chronic maxillary sinusitis; Translations: [Chronic maxillary sinusitis] 11-05-2024 Chronic Other upper respiratory infections (5 sources) Viral upper respiratory tract infection; Translations: [Acute upper respiratory infection, unspecified] 06-14-2024 Episodic Substance-related disorders (20 sources) Smokes tobacco daily; Translations: [Tobacco use disorder] Onset: 4 Chronic Comment on above: 1 ppd; Syncope (1 source) Vasovagal attack 07-01-2013 Episodic Transient cerebral ischemia (11 sources) Transient cerebral ischemia; Translations: [Unspecified transient cerebral ischemia] Onset: 3 01-04-2024 Chronic Unclassified (2 sources) Other [place] [facility] [place]current[facility] drug therapy / Z79.899(ICD-9) Onset: 8 Unclassified (3 sources) Patient encounter status 05-01-2019 Past or Other Problems Problem Classification Problem Date Documented Da te Episodic/Chronic Blindness and vision defects (8 sources) Eye / vision finding; Translations: [Unspecified visual disturbance] Onset: 04-09-2023 Resolved: 12-12-2022 04-09-2023 Episodic Other aftercare (3 sources) 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; Translations: [OTH CUSTODIAL CURRENT DRUG THERAPY] Onset: 06-12-2022 Episodic Other lower respiratory disease (3 sources) Shortness of breath; Translations: [Shortness of breath] Onset: 06-14-2024 06-14-2024 Episodic Other nervous system disorders (8 sources) Vela's palsy; 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] Onset: 04-09-2023 04-09-2023 Episodic Unclassified (1 source) [place] [facility] [place] drug [place]; Translations: [Other [place] [facility] [place] drug therapy] Onset: 12-26-2017 Unclassified (2 sources) Onset: 01-04-2024 01-04-2024 Results Test Name Value Interpretation Reference Range Facil ity Basophils Auto (Bld) [#/Vol] Ordered By: Shon Rosario on 12-05-2024 Basophils (Bld) [#/Vol] 0.1 10 3/uL 0.0-0.1 [facility] Basophils/100 WBC Auto (Bld) Ordered By: Shon Rosario on 12-05-2024 Basophils/100 WBC (Bld) 0.8 % 0.2-2.0 [facility] Eosinophils/100 WBC Auto (Bl d)Ordered By: Shon Rosario on 12-05-2024 Eosinophils/100 WBC (Bld) 2.5 % 0.9-7.0 [facility] Erythrocyte distribution wid th Auto (RBC) [Ratio]Ordered By: Shon Rosario on 12-05-2024 Erythrocyte distribution width (RBC) [Ratio] 12.6 % 11.0-15.0 [facility] Glomerular filtration rate ( GFR) estimation in non- AmericanOrdered By: Shon Rosario on 12-05-2024 GFR/1.73 sq M.predicted among non-blacks MDRD (S/P/Bld) [Vol rate/Area] mL/min/{1.73_m2} >=60 mL/min/1.73m 2 [facility] Hematocrit Auto (Bld) [Volum e fraction]Ordered By: Shon Rosario on 12-05-2024 Hematocrit (Bld) [Volume fraction] 48.2 % 42.0-54.0 [facility] Hemoglobin [Mass/volume] in BloodOrdered By: Shon Rosario on 12-05-2024 Hemoglobin (Bld) [Mass/Vol] 16.7 g/dL 14.0-18.0 [facility] Laboratory - Chemistry and C hemistry - challengeOrdered By: Shon Rosario on 12-05-2024 Calcium [Mass/Vol] 8.4 mg/dL Low 8.5-10.[address] [facility] Chloride [Moles/Vol] 103 mmol/L 98-107 [facility] CO2 [Moles/Vol] 26.9 mmol/L 21.0-32.0 [facility] Creatinine [Mass/Vol] 0.98 mg/dL 0.70-1.30 [facility] GFR/1.73 sq M.predicted MDRD (S/P/Bld) [Vol rate/Area] mL/min/{1.73_m2} >=60 mL/min/1.73m 2 [facility] Glucose [Mass/Vol] 151 mg/dL High 74-[address] [facility] Potassium [Moles/Vol] 4.1 mmol/L 3.5-5.1 [facility] Sodium [Moles/Vol] 139 mmol/L 136-[address] [facility] Urea nitrogen [Mass/Vol] 11.0 mg/dL 7.0-18.0 [facility] Urea nitrogen/Creatinine [Mass ratio] 11.2 mg/mg [facility] - Hematology and Cell countsOrdered By: Shon Rosario on 12-05-2024 Immature granulocytes/100 WBC (Bld) 0.4 % 0.0-0.5 [facility] Leukocytes [#/volume] correc traci for nucleated erythrocytes in Blood by Automated counOrdered By: Shon Rosario on 12-05-2024 WBC corrected for nucl RBC Auto (Bld) [#/Vol] 7.6 10 3/uL 4.0-11.0 [facility] Lymphocytes Auto (Bld) [#/Vo l]Ordered By: Shon Rosario on 12-05-2024 Lymphocytes (Bld) [#/Vol] 1.7 10 3/uL 1.2-3.8 [facility] Lymphocytes/100 WBC Auto (Bl d)Ordered By: Shon Rosario on 12-05-2024 Lymphocytes/100 WBC (Bld) 22.4 % 20.5-60.0 [facility] MCH Auto (RBC) [Entitic mass ]Ordered By: Shon Rosario on 12-05-2024 MCH (RBC) [Entitic mass] 31.0 pg 25.9-34.0 [facility] MCHC Auto (RBC) [Mass/Vol]Or dered By: Shon Rosario on 12-05-2024 MCHC (RBC) [Mass/Vol] 34.6 g/dL 29.9-35.2 [facility] MCV Auto (RBC) [Entitic vol] Ordered By: Shon Rosario on 12-05-2024 MCV (RBC) [Entitic vol] 89.4 fL 80.0-94.0 [facility] Monocytes Auto (Bld) [#/Vol] Ordered By: Shon Rosario on 12-05-2024 Monocytes (Bld) [#/Vol] 0.8 10 3/uL 0.3-0.8 [facility] Monocytes/100 WBC Auto (Bld) Ordered By: Shon Rosario on 12-05-2024 Monocytes/100 WBC (Bld) 10.3 % 1.7-12.0 [facility] Neutrophils Auto (Bld) [#/Vo l]Ordered By: Shon Rosario on 12-05-2024 Neutrophils (Bld) [#/Vol] 4.8 10 3/uL 1.4-6.5 [facility] Neutrophils/100 WBC Auto (Bl d)Ordered By: Shon Rosario on 12-05-2024 Neutrophils/100 WBC (Bld) 63.6 % 43.0-75.0 [facility] No Panel InformationOrdered By: Shon Rosario on 12-05-2024 Eosinophils # (Auto) 0.2 10 3/uL 0.0-0.7 [facility] Immature Granulocyte # (Auto) 0.03 10 3/uL 0.00-0.03 [facility] Platelet mean volume Auto (B ld) [Entitic vol]Ordered By: Shon Rosario on 12-05-2024 Platelet mean volume (Bld) [Entitic vol] 10.5 fL 9.5-13.5 [facility] Platelets Auto (Bld) [#/Vol] Ordered By: Shon Rosario on 12-05-2024 Platelets (Bld) [#/Vol] 188 10 3/uL 150-450 [facility] RBC Auto (Bld) [#/Vol]Ordere d By: Shon Rosario on 12-05-2024 RBC (Bld) [#/Vol] 5.39 10 6/uL 4.70-6.10 [facility] Serum or plasma anion gap de terminationOrdered By: Shon Rosario on 12-05-2024 Anion gap [Moles/Vol] 13.2 mmol/L [facility] Basophils Auto (Bld) [#/Vol] Ordered By: Chas Dean on 09-11-2024 Basophils (Bld) [#/Vol] Automated basophil count 0.0-0.2 [facility] Basophils/100 WBC Auto (Bld) Ordered By: Chas Dean on 09-11-2024 Basophils/100 WBC (Bld) Automated basophil % . [facility] Complete Blood Count Auto Di ffOrdered By: Chas Ditty on 09-11-2024 Basophils (Bld) [#/Vol] 0.1 10*3/uL 0.0-0.2 [facility] Comment on above: Result Comment: PERF ORMED BY: [place] [address] PATHOLOGIST [employer] MARK AVITIA M.D. Performed By: #### C BC, PTT, PT #### [facility] [address] [place] [address] Basophils/100 WBC (Bld) 1.2 % . [facility] Comment on above: Performed By: #### C BC, PTT, PT #### [facility] [address] [place] [address] Eosinophils (Bld) [#/Vol] 0.2 10*3/uL 0.0-0.45 [facility] Comment on above: Performed By: #### C BC, PTT, PT #### [facility] [address] [place] [address] [place] Eosinophils/100 WBC (Bld) 2.0 % . [facility] Comment on above: Performed By: #### C BC, PTT, PT #### [facility] [address] [place] [address] Erythrocyte distribution width (RBC) [Ratio] 14.0 % 12.0-14.8 [facility] Comment on above: Performed By: #### C BC, PTT, PT #### [facility] [address] [place] [address] Hematocrit (Bld) [Volume fraction] 47.8 % 38.8-50.0 [facility] Comment on above: Performed By: #### C BC, PTT, PT #### [facility] [address] [place] [address] Hemoglobin (Bld) [Mass/Vol] 16.8 g/dL 13.0-17.0 [facility] Comment on above: Performed By: #### C BC, PTT, PT #### [facility] [address] [id number] [place] Lymphocytes (Bld) [#/Vol] 2.1 10*3/uL 1.00-4.8 [facility] Comment on above: Performed By: #### C BC, PTT, PT #### [facility] [address] [id number] [place] Lymphocytes/100 WBC (Bld) 20.5 % . [facility] Comment on above: Performed By: #### C BC, PTT, PT #### [facility] [address] [place] [address] [place] MCH (RBC) [Entitic mass] 31.5 pg 27.5-35.2 [facility] Comment on above: Performed By: #### C BC, PTT, PT #### [facility] [address] [place] [address] [place] MCV (RBC) [Entitic vol] 89.6 fL 83.5-101 [facility] Comment on above: Performed By: #### C BC, PTT, PT #### [facility] [address] [place] [address] [place] Monocytes (Bld) [#/Vol] 1.3 10*3/uL High 0.0-0.8 [facility] Comment on above: Performed By: #### C BC, PTT, PT #### [facility] [address] [id number] [place] Monocytes/100 WBC (Bld) 12.7 % . [facility] Comment on above: Performed By: #### C BC, PTT, PT #### [facility] [address] [id number] [place] Neutrophils (Bld) [#/Vol] 6.5 10*3/uL 1.8-7.7 [facility] Comment on above: Performed By: #### C BC, PTT, PT #### [facility] [address] [id number] [place] Neutrophils/100 WBC (Bld) 63.6 % . [facility] Comment on above: Performed By: #### C BC, PTT, PT #### [address] Platelet mean volume (Bld) [Entitic vol] 8.8 fL 6.6-10.1 [facility] Comment on above: Performed By: #### C BC, PTT, PT #### [address] Platelets (Bld) [#/Vol] 180 10*3/uL 150-450 [facility] Comment on above: Performed By: #### C BC, PTT, PT #### [address] RBC (Bld) [#/Vol] 5.33 10*6/uL 3.90-5.60 [facility] Comment on above: Performed By: #### C BC, PTT, PT #### [address] WBC (Bld) [#/Vol] 10.2 10*3/uL 4.1-10.5 [facility] Comment on above: Performed By: #### C BC, PTT, PT #### [address] Complete Blood Count Auto Di ffon 09-11-2024 Mean Corpuscular HGB Conc 35.1 g/dL Normal 32.5-35.6 [facility] Comment on above: Performed By: #### C BC, PTT, PT #### [address] NRBC% 0.1 /100{WBC} Normal 0-0.5 [facility] Comment on above: Performed By: #### C BC, PTT, PT #### [address] Eosinophils Auto (Bld) [#/Vo l]Ordered By: Chas Dean on 09-11-2024 Eosinophils (Bld) [#/Vol] Automated eosinophil count 0.0-0.45 [facility] Eosinophils/100 WBC Auto (Bl d)Ordered By: Chas Dean on 09-11-2024 Eosinophils/100 WBC (Bld) Automated eosinophil % . [facility] Erythrocyte distribution wid th Auto (RBC) [Ratio]Ordered By: Chas Dean on 09-11-2024 Erythrocyte distribution width (RBC) [Ratio] Erythrocyte distribution width [Ratio] by Automated count 12.0-14.8 [facility] Hematocrit Auto (Bld) [Volum e fraction]Ordered By: Chas Dean on 09-11-2024 Hematocrit (Bld) [Volume fraction] Hematocrit [Volume Fraction] of Blood by Automated count 38.8-50.0 [facility] Hemoglobin [Mass/volume] in BloodOrdered By: Chas Dean on 09-11-2024 Hemoglobin (Bld) [Mass/Vol] Hemoglobin [Mass/volume] in Blood 13.0-17.0 [facility] INR in Platelet poor plasma by Coagulation assayOrdered By: Chas Dean on 09-11-2024 INR Coag (PPP) [Relative time] INR in Platelet poor plasma by Coagulation assay [facility] Comment on above: INR Therapeutic Rang [...] erythrocytes in Blood by Automated coun 4.1-10.5 [facility] WBC corrected for nucl RBC Auto (Bld) [#/Vol] 10.2 10*3/uL 4.1-10.5 [facility] Lymphocytes Auto (Bld) [#/Vo l]Ordered By: Chas Dean on 09-11-2024 Lymphocytes (Bld) [#/Vol] Lymphocytes [#/volume] in Blood by Automated count 1.00-4.8 [facility] Lymphocytes/100 WBC Auto (Bl d)Ordered By: Chas Dean on 09-11-2024 Lymphocytes/100 WBC (Bld) Lymphocytes/100 leukocytes in Blood by Automated count . [facility] MCH Auto (RBC) [Entitic mass ]Ordered By: Chas Dean on 09-11-2024 MCH (RBC) [Entitic mass] MCH [Entitic mass] by Automated count 27.5-35.2 [facility] MCHC Auto (RBC) [Mass/Vol]Or dered By: Chas Dean on 09-11-2024 MCHC (RBC) [Mass/Vol] MCHC [Mass/volume] by Automated count 32.5-35.6 [facility] MCHC (RBC) [Mass/Vol] 35.1 g/dL 32.5-35.6 [facility] MCV Auto (RBC) [Entitic vol] Ordered By: Chas Dean on 09-11-2024 MCV (RBC) [Entitic vol] MCV [Entitic volume] by Automated count 83.5-101 [facility] Monocytes Auto (Bld) [#/Vol] Ordered By: Chas Dean on 09-11-2024 Monocytes (Bld) [#/Vol] Automated blood monocyte count High 0.0-0.8 [facility] Monocytes/100 WBC Auto (Bld) Ordered By: Chas Dean on 09-11-2024 Monocytes/100 WBC (Bld) Automated monocyte % . [facility] Neutrophils Auto (Bld) [#/Vo l]Ordered By: Chas Dean on 09-11-2024 Neutrophils (Bld) [#/Vol] Neutrophils [#/volume] in Blood by Automated count 1.8-7.7 [facility] Neutrophils/100 WBC Auto (Bl d)Ordered By: Chas Dean on 09-11-2024 Neutrophils/100 WBC (Bld) Automated neutrophil % . [facility] No Panel InformationOrdered By: Chas Dean on 09-11-2024 Miscellaneous Pathology Test See comment [facility] Comment on above: See report. Scanned copy available in EMR. Nucleated erythrocytes [Pres ence] in Blood by Automated countOrdered By: Chas Dean on 09-11-2024 Nucleated RBC Auto Ql (Bld) Nucleated erythrocytes [Presence] in Blood by Automated count 0-0.5 [facility] Nucleated RBC Auto Ql (Bld) 0.1 /100{WBC} 0-0.5 [facility] Partial Thromboplastin Timeo n 09-11-2024 aPTT Coag (Bld) [Time] 34.6 s Normal 25.1-36.5 [facility] Comment on above: Result Comment: A he matocrit value greater than 55% may lead to inaccurate results in coagulation testing. Patients having hematocrit values >55% require a special collection tube for coagulation studies. Please contact the laboratory at [phone] for redraw instructions. PERFORMED BY: [place] [address] PATHOLOGIST [employer] MARK AVITIA M.D. Performed By: #### C BC, PTT, PT #### [address] Pathology Request for Lab Co rpon 09-11-2024 Pathology Request for Lab Farooq Normal [facility] Comment on above: Order Comment: GI SP ECIMEN Result Comment: See report. Scanned copy available in EMR. PERFORMED BY: [place] [address] PATHOLOGIST [employer] CAT ARAGON M.D. Performed By: #### P ATH TO [facility] #### [address] Platelet mean volume Auto (B ld) [Entitic vol]Ordered By: Chas Dean on 09-11-2024 Platelet mean volume (Bld) [Entitic vol] Platelet mean volume [Entitic volume] in Blood by Automated count 6.6-10.1 [facility] Platelets Auto (Bld) [#/Vol] Ordered By: Chas Dean on 09-11-2024 Platelets (Bld) [#/Vol] Platelets [#/volume] in Blood by Automated count 150-450 [facility] Prothrombin Time INROrdered By: Chas Dean on 09-11-2024 INR Coag (PPP) [Relative time] 1.1 {INR} [facility] Comment on above: Result Comment: INR [...] By: #### C BC, PTT, PT #### [facility] [address] INR Therapeutic Rang e A) Pre- and [...] Coag (PPP) [Time] 13.0 s High 9.0-12.9 [facility] Comment on above: Result Comment: A he matocrit value greater than 55% may lead to inaccurate results in coagulation testing. Patients having hematocrit values >55% require a special collection tube for coagulation studies. Please contact the laboratory at [phone] for redraw instructions. Performed By: #### C BC, PTT, PT #### [facility] [address] [place] [address] A hematocrit value g reater than 55% may lead to inaccurate results in coagulation testing. Patients having hematocrit values >55% require a special collection tube for coagulation studies. Please contact the laboratory at [phone] for redraw instructions. Prothrombin time (PT)Ordered By: Chas Dean on 09-11-2024 PT Coag (PPP) [Time] Prothrombin time (PT) High 9.0- 12.9 [facility] Comment on above: A hematocrit value g reater than 55% may lead to inaccurate results in coagulation testing. Patients having hematocrit values >55% require a special collection tube for coagulation studies. Please contact the laboratory at [phone] for redraw instructions. RBC Auto (Bld) [#/Vol]Ordere d By: Chas Dean on 09-11-2024 RBC (Bld) [#/Vol] Erythrocytes [#/volu me] in Blood by Automated count 3.90-5.60 [facility] WBC Auto (Bld) [#/Vol]Ordere d By: Chas Dean on 09-11-2024 WBC (Bld) [#/Vol] Leukocytes [#/volume ] in Blood by Automated count 4.1-10.5 [facility] aPTT in Platelet poor plasma by Coagulation assayOrdered By: Chas Dean on 09-11-2024 aPTT Coag (PPP) [Time] Activated partial thromboplastin time (aPTT) in platelet poor plasma by coagulation a 25.1-36.5 [facility] Comment on above: A hematocrit value g reater than 55% may lead to inaccurate results in coagulation testing. Patients having hematocrit values >55% require a special collection tube for coagulation studies. Please contact the laboratory at [phone] for redraw instructions. aPTT Coag (PPP) [Time] 34.6 s 25.1-36.5 [facility] Comment on above: A hematocrit value g reater than 55% may lead to inaccurate results in coagulation testing. Patients having hematocrit values >55% require a special collection tube for coagulation studies. Please contact the laboratory at [phone] lung screeningon 08-07-19 CT lung screening [facility] [place] [address] CT Scan Report Signed Patient: Abhinav Felix MR#: [id number] : 1960 Acct:[id number] Age/Sex: 64 / M ADM Date: 08/06/24 Loc: [facility] Room: Type: [facility] Attending Dr: Kelechi Martin MD Copies to: [...] Lockwood Jr., D.O.08/06/2024 12:58 PM Dictation Location: [place] [address] Transcribed By: [facility] 08/06/24 1258 Dictated By: Yannick Lockwood Jr, DO 08/06/24 1255 Signed By: 08/06/24 1258 Normal [facility] ECG 12 Leadon 08-01-2024 ECG revealed normal sinus rhythm with sinus bradycardia, left axis deviation, voltage criteria for LVH, diffuse nonspecific ST and T changes, abnormal ECG [facility] Work Phone: Basophils Auto (Bld) [#/Vol] on 07-25-2024 Basophils (Bld) [#/Vol] Automated basophil count 0.0-0.1 [facility] Basophils/100 WBC Auto (Bld) on 07-25-2024 Basophils/100 WBC (Bld) Automated basophil % 0.2-2.0 [facility] Eosinophils/100 WBC Auto (Bl d)on 07-25-2024 Eosinophils/100 WBC (Bld) Automated eosinophil % 0.9-7.0 [facility] Erythrocyte distribution wid th Auto (RBC) [Ratio]on 07-25-2024 Erythrocyte distribution width (RBC) [Ratio] Erythrocyte distribution width [Ratio] by Automated count 11.0-15.0 [facility] Estimated glomerular filtrat ion rate (GFR) non- Americanon 07-25-2024 GFR/1.73 sq M.predicted among non-blacks MDRD (S/P/Bld) [Vol rate/Area] Estimated glomerular filtration rate (GFR) non- >=60 mL/min/1.73m 2 [facility] Hematocrit Auto (Bld) [Volum e fraction]on 07-25-2024 Hematocrit (Bld) [Volume fraction] Hematocrit [Volume Fraction] of Blood by Automated count 42.0-54.0 [facility] Hemoglobin [Mass/volume] in Bloodon 07-25-2024 Hemoglobin (Bld) [Mass/Vol] Hemoglobin [Mass/volume] in Blood 14.0-18.0 [facility] INR in Platelet poor plasma by Coagulation assayon 07-25-2024 INR Coag (PPP) [Relative time] INR in Platelet poor plasma by Coagulation assay [facility] Comment on above: DESIRED INR:2.0-3.0 CONDITIONS NOT LISTED BELOW2.5-3.5 FOR PROSTHETIC HEART VALVE REPLACEMENT2.5-3.5 RECURRENT THROMBOSIS Laboratory - Chemistry and C hemistry - challengeon 07-25-2024 Calcium [Mass/Vol] 8.9 mg/dL 8.5-10.[address] [facility] Chloride [Moles/Vol] 105 mmol/L 98-107 [facility] CO2 [Moles/Vol] 29.2 mmol/L 21.0-32.0 [facility] Creatinine [Mass/Vol] 1.05 mg/dL 0.70-1.30 [facility] GFR/1.73 sq M.predicted MDRD (S/P/Bld) [Vol rate/Area] mL/min/{1.73_m2} >=60 mL/min/1.73m 2 [facility] Glucose [Mass/Vol] 97 mg/dL 74-[address] [facility] Potassium [Moles/Vol] 4.8 mmol/L 3.5-5.1 [facility] Sodium [Moles/Vol] 137 mmol/L 136-[address] [facility] Urea nitrogen [Mass/Vol] 11.0 mg/dL 7.0-18.0 [facility] Urea nitrogen/Creatinine [Mass ratio] 10.5 mg/mg [facility] Laboratory - Hematology and Cell countson 07-25-2024 Immature granulocytes/100 WBC (Bld) 0.4 % 0.0-0.5 [facility] Leukocytes [#/volume] correc traci for nucleated erythrocytes in Blood by Automated counon 07-25-2024 WBC corrected for nucl RBC Auto (Bld) [#/Vol] Leukocytes [#/volume] corrected for nucleated erythrocytes in Blood by Automated coun 4.0-11.0 [facility] Lymphocytes Auto (Bld) [#/Vo l]on 07-25-2024 Lymphocytes (Bld) [#/Vol] Lymphocytes [#/volume] in Blood by Automated count 1.2-3.8 [facility] Lymphocytes/100 WBC Auto (Bl d)on 07-25-2024 Lymphocytes/100 WBC (Bld) Lymphocytes/100 leukocytes in Blood by Automated count 20.5-60.0 [facility] MCH Auto (RBC) [Entitic mass ]on 07-25-2024 MCH (RBC) [Entitic mass] MCH [Entitic mass] by Automated count 25.9-34.0 [facility] MCHC Auto (RBC) [Mass/Vol]on 07-25-2024 MCHC (RBC) [Mass/Vol] MCHC [Mass/volume] by Automated count 29.9-35.2 [facility] MCV Auto (RBC) [Entitic vol] on 07-25-2024 MCV (RBC) [Entitic vol] MCV [Entitic volume] by Automated count 80.0-94.0 [facility] Monocytes Auto (Bld) [#/Vol] on 07-25-2024 Monocytes (Bld) [#/Vol] Automated blood monocyte count High 0.3-0.8 [facility] Monocytes/100 WBC Auto (Bld) on 07-25-2024 Monocytes/100 WBC (Bld) Automated monocyte % High 1.7-12.0 [facility] Neutrophils Auto (Bld) [#/Vo l]on 07-25-2024 Neutrophils (Bld) [#/Vol] Neutrophils [#/volume] in Blood by Automated count 1.4-6.5 [facility] Neutrophils/100 WBC Auto (Bl d)on 07-25-2024 Neutrophils/100 WBC (Bld) Automated neutrophil % 43.0-75.0 [facility] No Panel Informationon 07-25 Eosinophils # (Auto) 0.2 10 3/uL 0.0-0.7 [facility] Immature Granulocyte # (Auto) 0.03 10 3/uL 0.00-0.03 [facility] Platelet mean volume Auto (B ld) [Entitic vol]on 07-25-2024 Platelet mean volume (Bld) [Entitic vol] Platelet mean volume [Entitic volume] in Blood by Automated count 9.5-13.5 [facility] Platelets Auto (Bld) [#/Vol] on 07-25-2024 Platelets (Bld) [#/Vol] Platelets [#/volume] in Blood by Automated count 150-450 [facility] Prothrombin time (PT)on PT Coag (PPP) [Time] Prothrombin time (PT) High 9.0- 11.6 [facility] RBC Auto (Bld) [#/Vol]on RBC (Bld) [#/Vol] Erythrocytes [#/volu me] in Blood by Automated count 4.70-6.10 [facility] Serum or plasma anion gap de terminationon 07-25-2024 Anion gap [Moles/Vol] Serum or plasma an ion gap determination [facility] XR chest 2V*on 06-14-2024 XR chest 2V* [place] [address] XRay Report Signed Patient: Abhinav Felix MR#: [id number] : 1960 Acct:[id number] Age/Sex: 63 / M ADM Date: 06/14/24 Loc: [facility] Room: Type: REG CLI Attending Dr: Sandi Collazo APRN Copies to: [...] Jaden Castro M.D.06/14/2024 9:47 AM Dictation Location: [facility]-- Transcribed By: KIANA 06/14/24946 Dictated By: Jaden Castro MD 06/14/2446 Signed By: 06/14/24946 Normal [facility] ECG 12 Leadon 01-04-2024 ECG revealed sinus rhythm with PACs and left axis deviation consistent with left anterior fascicular block [facility] Work Phone: Cholesterol in LDL Calc [Mas s/Vol]on 06-12-2023 Cholesterol in LDL [Mass/Vol] 54.0 mg/dL [facility] Comment on above: <100 mg/dl [id number] 0-129 mg/dl NEAR OR ABOVE [id number] mg/dl BORDERLINE [id number] mg/dl HIGH>190 mg/dl VERY HIGH Cholesterol in VLDL Calc [Ma ss/Vol]on 06-12-2023 Cholesterol in VLDL [Mass/Vol] 48.0 mg/dL [facility] Estimated glomerular filtrat ion rate (GFR) non- Americanon 06-12-2023 GFR/1.73 sq M.predicted among non-blacks MDRD (S/P/Bld) [Vol rate/Area] mL/min/{1.73_m2} >=60 [facility] Globulin Calc (S) [Mass/Vol] on 06-12-2023 Globulin (S) [Mass/Vol] 4.4 g/dL [facility] Laboratory - Chemistry and C hemistry - challengeon 06-12-2023 Albumin [Mass/Vol] 3.3 g/dL 3.4-5.[address] [facility] ALP [Catalytic activity/Vol] 93 U/L 46-116 [facility] ALT [Catalytic activity/Vol] 28 U/L 16-63 [facility] AST [Catalytic activity/Vol] 18 U/L 15-37 [facility] Bilirubin [Mass/Vol] 0.6 mg/dL 0.2-1.0 [facility] Calcium [Mass/Vol] 8.6 mg/dL 8.5-10.[address] [facility] Chloride [Moles/Vol] 103 mmol/L 98-107 [facility] Cholesterol [Mass/Vol] 135 mg/dL <=200 [facility] Cholesterol in HDL [Mass/Vol] 33 mg/dL 40-60 [facility] Comment on above: > or =60 mg/dl - LOW CARDIOVASCULAR RISK<40 mg/dl - HIGH CARDIOVASCULAR RISK CO2 [Moles/Vol] 28.4 mmol/L 21.0-32.0 [facility] Creatinine [Mass/Vol] 0.93 mg/dL 0.70-1.30 [facility] GFR/1.73 sq M.predicted MDRD (S/P/Bld) [Vol rate/Area] mL/min/{1.73_m2} >=60 [facility] Glucose [Mass/Vol] 85 mg/dL 74-[address] [facility] Potassium [Moles/Vol] 4.3 mmol/L 3.5-5.1 [facility] Protein [Mass/Vol] 7.7 g/dL 6.4-8.[address] [facility] Sodium [Moles/Vol] 140 mmol/L 136-[address] [facility] Triglyceride [Mass/Vol] 240 mg/dL <=150 [facility] Urea nitrogen [Mass/Vol] 11.0 mg/dL 7.0-18.0 [facility] Urea nitrogen/Creatinine [Mass ratio] 11.8 mg/mg [facility] Serum or plasma albumin/glob ulin mass ratioon 06-12-2023 Albumin/Globulin [Mass ratio] 0.8 {ratio} [facility] Serum or plasma anion gap de terminationon 06-12-2023 Anion gap [Moles/Vol] 12.9 mmol/L [facility] Serum or plasma total choles terol/high density lipoprotein (HDL) cholesterol mass juan miguel 06-12-2023 Cholesterol.total/Cho lesterol in HDL [Mass ratio] 4.1 {ratio} [facility] Comment on above: 3.3 - 4.4 [...] Weight Tips; Status:Complete - Retrospective Authorization; Done: [id number] Some eating tips that can help you lose weight.; Status:Complete - Retrospective Authorization; Done: [id number] Paroxysmal atrial fibrillation Renew: Multaq 400 MG Oral Tablet; TAKE 1 TABLET TWICE DAILY, WITH MORNING AND EVENING MEAL IO EKG Electrocardiogram- 12 Lead; Status:Complete; Done: [id number] Renew: Nebivolol HCl - 10 MG Oral [...] we can help. You may also call 9-595-HZTQ-NOW for free resources and assistance.; Status:Complete - Retrospective Authorization; Done: [id number] Tobacco Use Screening; Status:Complete; Done: [id number] Patient Instructions Please bring all medicines, vitamins, [...] Vital Signs (more content not included)... Normal [employer] Tobacco Screening.on 023 Fall risk assessment b) One or more fall s in the last year [facility] [employer] DO Work Phone: Tobacco use status [facility] a) Yes [facility] [employer] DO Work Phone: Tobacco Screening. Yes [facility] [email or web address] 250 DO Work Phone: CBC AUTO DIFFon 09-04-2022 BASO # 0.1 103/ul Normal 0.0-0.1 [facility] Comment on above: Performed By: #### P SAS #### [facility] [address] [place] [address] [address] Nabil Che Basophils/100 WBC (Bld) 0.9 % Normal 0.2-2.0 [facility] Comment on above: Performed By: #### P SAS #### [facility] [address] [place] [address] [address] Nabil Che EO # 0.3 103/ul Normal 0.0-0.7 [facility] Comment on above: Performed By: #### P SASC #### [facility] [address] [place] [address] Dr. Nabil Che Eosinophils/100 WBC (Bld) 3.3 % Normal 0.9-7.0 [facility] Comment on above: Performed By: #### P SASC #### [facility] [address] [place] [address] Dr. Nabil Che Erythrocyte distribution width (RBC) [Ratio] 13.2 % Normal 11.0-15.0 [facility] Comment on above: Performed By: #### P SASC #### [facility] [address] [place] [address] Dr. Nabil Che Hematocrit (Bld) [Volume fraction] 51.1 % Normal 42.0-54.0 [facility] Comment on above: Performed By: #### P SASC #### [facility] [address] [place] [address] Dr. Nabil Che Hemoglobin (Bld) [Mass/Vol] 17.8 g/dL Normal 14.0-18.0 [facility] Comment on above: Performed By: #### P SASC #### [facility] [address] [place] [address] Dr. Nabil Che IG # 0.07 10e3/ul Critically high 0.00-0.03 [facility] Comment on above: Performed By: #### P SASC #### [facility] [address] [place] [address] Dr. Nabil Che IG % 0.7 % Critically high 0.0-0.5 [facility] Comment on above: Performed By: #### P SASC #### [facility] [address] [place] [address] Dr. Nabil Che LYMPH # 2.1 103/ul Normal 1.2-3.8 [facility] Comment on above: Performed By: #### P SASC #### [facility] [address] [place] [address] [address] Nabil Che Lymphocytes/100 WBC (Bld) 21.2 % Normal 20.5-60.0 [facility] Comment on above: Performed By: #### P SASC #### [facility] [address] [place] [address] [address] Nabil Che MANUAL DIFF REQ NO Normal [facility] Comment on above: Performed By: #### P SASC #### [facility] [address] [place] [address] [address] Nabil Che MCH (RBC) [Entitic mass] 31.5 pg Normal 25.9-34.0 [facility] Comment on above: Performed By: #### P SASC #### [facility] [address] [place] [address] Dr. Nabil Che MCHC (RBC) [Mass/Vol] 34.8 g/dL Normal 29.9-35.2 [facility] Comment on above: Performed By: #### P SASC #### [facility] [address] [place] [address] Dr. Nabil Che MCV (RBC) [Entitic vol] 90.4 fL Normal 80.0-94.0 [facility] Comment on above: Performed By: #### P SASC #### [facility] [address] [place] [address] Dr. Nabil Che MONO # 1.2 103/ul Critically high 0.3-0.8 [facility] Comment on above: Performed By: #### P SASC #### [facility] [address] [place] [address] Dr. Nabil Che Monocytes/100 WBC (Bld) 12.1 % Critically high 1.7-12.0 [facility] Comment on above: Performed By: #### P SASC #### [facility] [address] [place] [address] Dr. Nabil Che NEUT # 6.0 103/ul Normal 1.4-6.5 [facility] Comment on above: Performed By: #### P SASC #### [facility] [address] [place] [address] [address] Nabil Che Neutrophils/100 WBC (Bld) 61.8 % Normal 43.0-75.0 [facility] Comment on above: Performed By: #### P SASC #### [facility] [address] [address] [address] Nabil Che Platelet mean volume (Bld) [Entitic vol] 10.3 fL Normal 9.5-13.5 [facility] Comment on above: Performed By: #### P SASC #### [facility] [address] [address] [address] Nabil Che PLT 203 103/ul Normal 150-450 [facility] Comment on above: Performed By: #### P SASC #### [facility] [address] [address] [address] Nabil Che RBC 5.65 106/ul Normal 4.70-6.10 [facility] Comment on above: Performed By: #### P SASC #### [facility] [address] [address] [address] Nabil Che WBC 9.8 103/ul Normal 4.0-11.0 [facility] Comment on above: Performed By: #### P SASC #### [facility] [address] [place] [address] Dr. Nabil Che LIPID PROFILEon 09-04-2022 CHOL-HDL RATIO NORM SEE BELOW Normal [facility] Comment on above: Result Comment: 3.3 - 4.4 LOW RISK 4.4 - 7.1 AVERAGE RISK 7.1 - 11.0 MODERATE RISK >11.0 HIGH RISK Performed By: #### L IPID, CMP #### [facility] [address] [address] [address] Nabil Che Cholesterol [Mass/Vol] 231 mg/dL Critically high <=200 [facility] Comment on above: Performed By: #### L IPID, CMP #### [facility] [address] [address] [address] Nabil Che Cholesterol in HDL [Mass/Vol] 37 mg/dL Critically low 40-60 [facility] Comment on above: Performed By: #### L IPID, CMP #### [facility] [address] [address] [address] Nabil Che Cholesterol in LDL [Mass/Vol] 137.0 mg/dL Normal [facility] Comment on above: Performed By: #### L IPID, CMP #### [facility] [address] [address] [address] Nabil Che Cholesterol.total/Cho lesterol in HDL [Mass ratio] 6.2 {ratio} Normal [facility] Comment on above: Performed By: #### L IPID, CMP #### [facility] [address] [address] [address] Nabil Che HDL NORMAL > or = 60 mg/dl - LO W CARDIOVASCULAR RISK <40 mg/dl - HIGH CARDIOVASCULAR RISK Normal [facility] Comment on above: Performed By: #### L IPID, CMP #### [facility] [address] [place] [address] Dr. Nabil Che LDL CALC NORMAL SEE BELOW Normal [facility] Comment on above: Result Comment: <100 mg/dl OPTIMAL 100 - 129 mg/dl NEAR OR ABOVE OPTIMAL 130 - 159 mg/dl BORDERLINE HIGH 160 - 189 mg/dl HIGH >190 mg/dl VERY HIGH Performed By: #### L IPID, CMP #### [facility] [address] [place] [address] Dr. Nabil Che Triglyceride [Mass/Vol] 285 mg/dL Critically high <=150 [facility] Comment on above: Performed By: #### L IPID, CMP #### [facility] [address] [place] [address] Dr. Nabil Che VLDL CALC 57.0 mg/dL Normal [facility] Comment on above: Performed By: #### L IPID, CMP #### [facility] [address] [place] [address] Dr. Nabil Che PROF 14(COMP METB)on 023 Albumin [Mass/Vol] 3.7 g/dL Normal 3.4-5.0 [facility] Comment on above: Performed By: #### L IPID, CMP #### [facility] [address] [address] [address] Nabil Che Albumin/Globulin [Mass ratio] 0.8 {ratio} Normal [facility] Comment on above: Performed By: #### L IPID, CMP #### [facility] [address] [address] [address] Nabil Che ALP [Catalytic activity/Vol] 96 U/L Normal 46-116 [facility] Comment on above: Performed By: #### L IPID, CMP #### [facility] [address] [address] [address] Nabil Che ALT [Catalytic activity/Vol] 42 U/L Normal 16-63 [facility] Comment on above: Performed By: #### L IPID, CMP #### [facility] [address] [address] [address] Nabil Che Anion gap [Moles/Vol] 11.9 mmol/L Normal [facility] Comment on above: Performed By: #### L IPID, CMP #### [facility] [address] [address] [address] Nabil Che AST [Catalytic activity/Vol] 23 U/L Normal 15-37 [facility] Comment on above: Performed By: #### L IPID, CMP #### [facility] [facility] [address] [address] [address] Nabil Che Bilirubin [Mass/Vol] 0.5 mg/dL Normal 0.2-1.0 [facility] Comment on above: Performed By: #### L IPID, CMP #### [facility] [address] [address] [address] Nabil Che Calcium [Mass/Vol] 9.1 mg/dL Normal 8.5-10.1 [facility] Comment on above: Performed By: #### L IPID, CMP #### [facility] [address] [address] [address] Nabil Che Chloride [Moles/Vol] 104 mmol/L Normal 98-107 [facility] Comment on above: Performed By: #### L IPID, CMP #### [facility] [address] [address] [address] Nabil Che CO2 [Moles/Vol] 29.7 mmol/L Normal 21.0-32.0 [facility] Comment on above: Performed By: #### L IPID, CMP #### [facility] [address] [address] [address] Nabil Che Creatinine [Mass/Vol] 1.07 mg/dL Normal 0.70-1.30 [facility] Comment on above: Performed By: #### L IPID, CMP #### [facility] [address] [place] [address] Dr. Nabil Che EGFR-AF ESTONIAN >60 Normal >=60 [facility] Comment on above: Performed By: #### L IPID, CMP #### [facility] [address] [place] [address] Dr. Nabil Che EGFR-NON AF ESTONIAN >60 Normal >=60 [facility] Comment on above: Performed By: #### L IPID, CMP #### [facility] [address] [place] [address] Dr. Nabil Che Globulin (S) [Mass/Vol] 4.8 g/dL Normal [facility] Comment on above: Performed By: #### L IPID, CMP #### [facility] [address] [place] [address] Dr. Nabil Che Glucose [Mass/Vol] 106 mg/dL Normal 74-106 [facility] Comment on above: Performed By: #### L IPID, CMP #### [facility] [address] [place] [address] Dr. Nabil Che Potassium [Moles/Vol] 4.6 mmol/L Normal 3.5-5.1 [facility] Comment on above: Performed By: #### L IPID, CMP #### [facility] [address] [place] [address] Dr. Nabil Che Protein [Mass/Vol] 8.5 g/dL Critically high 6.4-8.2 T [facility] Comment on above: Performed By: #### L IPID, CMP #### [facility] [address] [place] [address] Dr. Nabil Che Sodium [Moles/Vol] 141 mmol/L Normal 136-145 [facility] Comment on above: Performed By: #### L IPID, CMP #### [facility] [address] [place] [address] Dr. Nabil Che Urea nitrogen [Mass/Vol] 13.0 mg/dL Normal 7.0-18.0 [facility] Comment on above: Performed By: #### L IPID, CMP #### [facility] [address] [place] [address] Dr. Nabil Che Urea nitrogen/Creatinine [Mass ratio] 12.1 mg/mg Normal [facility] Comment on above: Performed By: #### L IPID, CMP #### [facility] [address] [place] [address] Dr. Nabil Che PROTIMEon 09-04-2022 INR Coag (PPP) [Relative time] 3.32 {INR} Normal [facility] Comment on above: Performed By: #### P T #### [facility] [address] [place] [address] Dr. Nabil Che INR GUIDELINES SEE BELOW Normal [facility] Comment on above: Result Comment: LETY RED INR: 2.0 - 3.0 CONDITIONS NOT LISTED BELOW 2.5 - 3.5 FOR PROSTHETIC HEART VALVE REPLACEMENT 2.5 - 3.5 RECURRENT THROMBOSIS Performed By: #### P T #### [facility] [address] [place] [address] Dr. Nabil Che PT Coag (PPP) [Time] 32.9 s Critically high 9.0-11.6 [facility] Comment on above: Performed By: #### P T #### [facility] [address] [place] [address] Dr. Nabil Che [facility] 07-30-2022 Lab Reports [id number]#1.00C D:127 Normal [facility] PROTIMEon 07-27-2022 INR Coag (PPP) [Relative time] 2.82 {INR} Normal [facility] Comment on above: Performed By: #### P T #### [facility] [address] [place] [address] Dr. Nabil Che INR GUIDELINES SEE BELOW Normal [facility] Comment on above: Result Comment: LETY RED INR: 2.0 - 3.0 CONDITIONS NOT LISTED BELOW 2.5 - 3.5 FOR PROSTHETIC HEART VALVE REPLACEMENT 2.5 - 3.5 RECURRENT THROMBOSIS Performed By: #### P T #### [facility] [address] [place] [address] Dr. Nabil Che PT Coag (PPP) [Time] 28.2 s Critically high 9.0-11.6 [facility] Comment on above: Performed By: #### P T #### [facility] [address] [place] [address] Dr. Nabil Che CBC AUTO DIFFon 06-07-2022 BASO # 0.1 103/ul Normal 0.0-0.1 [facility] Comment on above: Performed By: #### P SASC #### [facility] [address] [place] [address] Dr. Nabil Che Basophils/100 WBC (Bld) 1.1 % Normal 0.2-2.0 [facility] Comment on above: Performed By: #### P SASC #### [facility] [address] [place] [address] Dr. Nabil Che EO # 0.4 103/ul Normal 0.0-0.7 [facility] Comment on above: Performed By: #### P SASC #### [facility] [address] [place] [address] Dr. Nabil Che Eosinophils/100 WBC (Bld) 3.7 % Normal 0.9-7.0 [facility] Comment on above: Performed By: #### P SASC #### [facility] [address] [place] [address] Dr. Nabil Che Erythrocyte distribution width (RBC) [Ratio] 13.2 % Normal 11.0-15.0 [facility] Comment on above: Performed By: #### P SASC #### [facility] [address] [address] [address] Nabil Che Hematocrit (Bld) [Volume fraction] 49.2 % Normal 42.0-54.0 [facility] Comment on above: Performed By: #### P SASC #### [facility] [address] [place] [address] Dr. Nabil Che Hemoglobin (Bld) [Mass/Vol] 17.3 g/dL Normal 14.0-18.0 [facility] Comment on above: Performed By: #### P SASC #### [facility] [address] [place] [address] Dr. Nabil Che IG # 0.04 10e3/ul Critically high 0.00-0.03 [facility] Comment on above: Performed By: #### P SASC #### [facility] [address] [place] [address] Dr. Nabil Che IG % 0.4 % Normal 0.0-0.5 [facility] Comment on above: Performed By: #### P SASC #### [facility] [address] [address] [address] Nabil Che LYMPH # 2.5 103/ul Normal 1.2-3.8 [facility] Comment on above: Performed By: #### P SASC #### [facility] [address] [place] [address] Dr. Nabil Ceh Lymphocytes/100 WBC (Bld) 26.3 % Normal 20.5-60.0 [facility] Comment on above: Performed By: #### P SASC #### [facility] [address] [place] [address] Dr. Nabil Che MANUAL DIFF REQ NO Normal [facility] Comment on above: Performed By: #### P SASC #### [facility] [address] [place] [address] Dr. Nabil Che MCH (RBC) [Entitic mass] 31.2 pg Normal 25.9-34.0 [facility] Comment on above: Performed By: #### P SASC #### [facility] [address] [address] [address] Nabil Che MCHC (RBC) [Mass/Vol] 35.2 g/dL Normal 29.9-35.2 [facility] Comment on above: Performed By: #### P SASC #### [facility] [address] [address] [address] Nabil Che MCV (RBC) [Entitic vol] 88.6 fL Normal 80.0-94.0 [facility] Comment on above: Performed By: #### P SASC #### [facility] [address] [address] [address] Nabil Che MONO # 1.3 103/ul Critically high 0.3-0.8 [facility] Comment on above: Performed By: #### P SASC #### [facility] [address] [place] [address] Dr. Nabil Che Monocytes/100 WBC (Bld) 13.3 % Critically high 1.7-12.0 [facility] Comment on above: Performed By: #### P SASC #### [facility] [address] [address] [address] Nabil Che NEUT # 5.2 103/ul Normal 1.4-6.5 [facility] Comment on above: Performed By: #### P SASC #### [facility] [address] [place] [address] Dr. Nabil Che Neutrophils/100 WBC (Bld) 55.2 % Normal 43.0-75.0 [facility] Comment on above: Performed By: #### P SASC #### [facility] [address] [place] [address] Dr. Nabil Che Platelet mean volume (Bld) [Entitic vol] 10.4 fL Normal 9.5-13.5 [facility] Comment on above: Performed By: #### P SASC #### [facility] [address] [place] [address] Dr. Nabil Che PLT 199 103/ul Normal 150-450 [facility] Comment on above: Performed By: #### P SASC #### [facility] [address] [place], [place] [address] Dr. Nabil Che RBC 5.55 106/ul Normal 4.70-6.10 [facility] Comment on above: Performed By: #### P SASC #### [facility] [address] [place], [place] [address] Dr. Nabil Che WBC 9.4 103/ul Normal 4.0-11.0 [facility] Comment on above: Performed By: #### P SASC #### [facility] [address] [place], [place] [address] Dr. Nabil Che Office Visit (Cardiology)on 06-07-2022 [...] Weight Tips; Status:Complete - Retrospective Authorization; Done: [id number] Some eating tips that can help you lose weight.; Status:Complete - Retrospective Authorization; Done: [id number] Paroxysmal atrial fibrillation IO EKG Electrocardiogram- 12 Lead; Status:Complete; Done: [id number] SocHx: Current every day smoker You need to stop smoking. Though it is not easy, more than half of all adult smokers have quit. We encourage you to write down all the reasons you should quit smoking and set a quit date for yourself. Ask us how we can help. You may also call 2-347-WSNW-NOW for free resources and assistance.; Status:Complete - Retrospective Authorization; Done: [id number] Tobacco Use Screening; Status:Complete; Done: [id number] Patient Instructions Please bring all medicines, vitamins, [...] any palpitations since he started taking magnesium cubw-uuv-essihns. He is on Multaq and his rhythm [...] 10 MG Oral TabletTake 1 tablet daily [place] 3 1000 MG Oral CapsuleTAKE 2 CAPSULE [...] negative for complaint. Vitals Vital Signs Recorded: [id number] 09:01AM Heart Rate52, L Radial Hswtqiid113, LUE, Sitting Ikcvmthxt37, LUE, Sitting Height5 ft 11 in Qmsgdv219 lb BMI Hlfdvktebf97.75 kg/m2 BSA Calculated2.29 Tobacco Usea) Yes Patient encouraged to stop using tobacco productsYes PHQ-2 #1. Over the last 2 weeks have you felt down, depressed or hopeless? (If yes, answer PHQ-9 below)No PHQ-2 #2. Ove (more content not included)... Normal [employer] PROF CHEM 8 (BAS METB)on Anion gap [Moles/Vol] 12.2 mmol/L Normal [facility] Comment on above: Performed By: #### P SASC #### [facility] [address] [address] [address] Nabil Che Calcium [Mass/Vol] 9.1 mg/dL Normal 8.5-10.1 [facility] Comment on above: Performed By: #### P SASC #### [facility] [address] [place], [place] [address] Dr. Nabil Che Chloride [Moles/Vol] 103 mmol/L Normal 98-107 [facility] Comment on above: Performed By: #### P SASC #### [facility] [address] [address] [address] Nabil Che CO2 [Moles/Vol] 29.0 mmol/L Normal 21.0-32.0 [facility] Comment on above: Performed By: #### P SASC #### [facility] [address] [address] [address] Nabil Che Creatinine [Mass/Vol] 1.01 mg/dL Normal 0.70-1.30 [facility] Comment on above: Performed By: #### P SASC #### [facility] [address] [address] [address] Nabil Che EGFR-AF ESTONIAN >60 Normal >=60 [facility] Comment on above: Performed By: #### P SASC #### [facility] [address] [address] [address] Nabil Che EGFR-NON AF ESTONIAN >60 Normal >=60 [facility] Comment on above: Performed By: #### P SASC #### [facility] [address] [address] [address] Nabil Che Glucose [Mass/Vol] 113 mg/dL Critically high 74-106 T [facility] Comment on above: Performed By: #### P SASC #### [facility] [address] [address] [address] Nabil Che Potassium [Moles/Vol] 4.2 mmol/L Normal 3.5-5.1 [facility] Comment on above: Performed By: #### P SASC #### [facility] [address] [address] [address] Nabil Che Sodium [Moles/Vol] 140 mmol/L Normal 136-145 [facility] Comment on above: Performed By: #### P SASC #### [facility] [address] [address] [address] Nabil Che Urea nitrogen [Mass/Vol] 9.0 mg/dL Normal 7.0-18.0 [facility] Comment on above: Performed By: #### P SASC #### [facility] [address] [address] [address] Nabil Che Urea nitrogen/Creatinine [Mass ratio] 8.9 mg/mg Normal [facility] Comment on above: Performed By: #### P SASC #### [facility] [address] [place] [address] Dr. Nabil Che Tobacco Screening.on 023 Adult depression screening assessment No [facility] 250 DO Work Phone: Tobacco use status CPHS a) Yes [facility] 250 DO Work Phone: Tobacco Screening. Yes [facility] 250 DO Work Phone: [facility] 05-27-2022 Lab Reports [id number]#1.00C D:127 Normal [facility] PROTIMEon 05-24-2022 INR Coag (PPP) [Relative time] 2.87 {INR} Normal [facility] Comment on above: Performed By: #### P T #### [facility] [address] [address] [address] Nabil Che INR GUIDELINES SEE BELOW Normal [facility] Comment on above: Result Comment: LETY RED INR: 2.0 - 3.0 CONDITIONS NOT LISTED BELOW 2.5 - 3.5 FOR PROSTHETIC HEART VALVE REPLACEMENT 2.5 - 3.5 RECURRENT THROMBOSIS Performed By: #### P T #### [facility] [address] [address] [address] Nabil Che PT Coag (PPP) [Time] 28.7 s Critically high 9.0-11.6 [facility] Comment on above: Performed By: #### P T #### [facility] [address] [address] [address] Nabil Che [facility] 04-29-2022 Lab Reports [id number]#1.00C D:127 Normal [facility] PROTIMEon 04-27-2022 INR Coag (PPP) [Relative time] 2.17 {INR} Normal [facility] Comment on above: Performed By: #### P SASC #### [facility] [address] [place] [address] Dr. Nabil Che INR GUIDELINES SEE BELOW Normal [facility] Comment on above: Result Comment: LETY RED INR: 2.0 - 3.0 CONDITIONS NOT LISTED BELOW 2.5 - 3.5 FOR PROSTHETIC HEART VALVE REPLACEMENT 2.5 - 3.5 RECURRENT THROMBOSIS Performed By: #### P SASC #### [facility] [address] [place] [address] Dr. Nabil Che PT Coag (PPP) [Time] 22.3 s Critically high 9.0-11.6 [facility] Comment on above: Performed By: #### P SASC #### [facility] [address] [place] [address] Dr. Nabil Che [facility] 04-10-2022 Lab Reports [id number]#1.00C D:127 Normal [facility] PROTIMEon 04-07-2022 INR Coag (PPP) [Relative time] 1.09 {INR} Normal [facility] Comment on above: Performed By: #### P T #### [facility] [address] [place] [address] Dr. Nabil Che INR GUIDELINES SEE BELOW Normal [facility] Comment on above: Result Comment: LETY RED INR: 2.0 - 3.0 CONDITIONS NOT LISTED BELOW 2.5 - 3.5 FOR PROSTHETIC HEART VALVE REPLACEMENT 2.5 - 3.5 RECURRENT THROMBOSIS Performed By: #### P T #### [facility] [address] [place] [address] Dr. Nabil Che PT Coag (PPP) [Time] 11.7 s Critically high 9.0-11.6 [facility] Comment on above: Performed By: #### P T #### [facility] [address] [place] [address] Dr. Nabil Che [facility] 03-28-2022 Lab Reports [id number]#1.00C D:127 Normal [facility] PROTIMEon 03-27-2022 INR Coag (PPP) [Relative time] 1.11 {INR} Normal [facility] Comment on above: Performed By: #### P SASC #### [facility] [address] [place] [address] Dr. Nabil Che INR GUIDELINES SEE BELOW [facility] Comment on above: Result Comment: LETY RED INR: 2.0 - 3.0 CONDITIONS NOT LISTED BELOW 2.5 - 3.5 FOR PROSTHETIC HEART VALVE REPLACEMENT 2.5 - 3.5 RECURRENT THROMBOSIS Performed By: #### P SASC #### [facility] [address] [place] [address] Dr. Nabil Che PT Coag (PPP) [Time] 11.9 s Critically high 9.0-11.6 [facility] Comment on above: Performed By: #### P SASC #### [facility] [address] [place] [address] Dr. Nabil Che [facility] 02-23-2022 Lab Reports [id number]#1.00C D:127 Normal [facility] PROTIMEon 02-22-2022 INR Coag (PPP) [Relative time] 1.84 {INR} Normal [facility] Comment on above: Performed By: #### P T #### [facility] [address] [place] [address] Dr. Nabil Che INR GUIDELINES SEE BELOW Normal [facility] Comment on above: Result Comment: LETY RED INR: 2.0 - 3.0 CONDITIONS NOT LISTED BELOW 2.5 - 3.5 FOR PROSTHETIC HEART VALVE REPLACEMENT 2.5 - 3.5 RECURRENT THROMBOSIS Performed By: #### P T #### [facility] [address] [place] [address] Dr. Nabil Che PT Coag (PPP) [Time] 19.1 s Critically high 9.0-11.6 [facility] Comment on above: Performed By: #### P T #### [facility] [address] [place] [address] Dr. Nabil Che [facility] 01-26-2022 Lab Reports [id number]#1.00C D:127 Normal [facility] PROTIMEon 01-25-2022 INR Coag (PPP) [Relative time] 1.91 {INR} Normal [facility] Comment on above: Performed By: #### P SASC #### [facility] [address] [address] [address] Nabil Che INR GUIDELINES SEE BELOW Normal [facility] Comment on above: Result Comment: LETY RED INR: 2.0 - 3.0 CONDITIONS NOT LISTED BELOW 2.5 - 3.5 FOR PROSTHETIC HEART VALVE REPLACEMENT 2.5 - 3.5 RECURRENT THROMBOSIS Performed By: #### P SASC #### [facility] [address] [place] [address] Dr. Nabil Che PT Coag (PPP) [Time] 19.8 s Critically high 9.0-11.6 [facility] Comment on above: Performed By: #### P SASC #### [facility] [address] [place] [address] Dr. Nabil Che Consultation Noteon 12-07-19 Consultation Note [id number]#1.00CD :127 Normal [facility] Tobacco Screening.on 022 Adult depression screening assessment No [facility] 250 DO Work Phone: Tobacco use status CPHS a) Yes [facility] 250 DO Work Phone: Tobacco Screening. Yes [facility] 250 DO Work Phone: [facility] 11-22-2021 Lab Reports [id number] D:127 Normal [facility] CBC AUTO DIFFon 11-21-2021 BASO # 0.1 103/ul Normal 0.0-0.1 [facility] Comment on above: Performed By: #### C BC #### [facility] [address] [address] [address] Nabil Che Basophils/100 WBC (Bld) 0.8 % Normal 0.2-2.0 [facility] Comment on above: Performed By: #### C BC #### [facility] [address] [address] [address] Nabil Che EO # 0.3 103/ul Normal 0.0-0.7 [facility] Comment on above: Performed By: #### C BC #### [facility] [address] [place] [address] Dr. Nabil Che Eosinophils/100 WBC (Bld) 3.2 % Normal 0.9-7.0 [facility] Comment on above: Performed By: #### C BC #### [facility] [address] [place] [address] Dr. Nabil Che Erythrocyte distribution width (RBC) [Ratio] 13.1 % Normal 11.0-15.0 [facility] Comment on above: Performed By: #### C BC #### [facility] [address] [place] [address] Dr. Nabil Che Hematocrit (Bld) [Volume fraction] 46.8 % Normal 42.0-54.0 [facility] Comment on above: Performed By: #### C BC #### [facility] [address] [place] [address] Dr. Nabil Che Hemoglobin (Bld) [Mass/Vol] 16.4 g/dL Normal 14.0-18.0 [facility] Comment on above: Performed By: #### C BC #### [facility] [address] [place] [address] Dr. Nabil Che IG # 0.04 10e3/ul Critically high 0.00-0.03 [facility] Comment on above: Performed By: #### C BC #### [facility] [address] [place] [address] Dr. Nabil Che IG % 0.4 % Normal 0.0-0.5 [facility] Comment on above: Performed By: #### C BC #### [facility] [address] [place] [address] Dr. Nabil Che LYMPH # 2.8 103/ul Normal 1.2-3.8 [facility] Comment on above: Performed By: #### C BC #### [facility] [address] [place] [address] Dr. Nabil Che Lymphocytes/100 WBC (Bld) 29.6 % Normal 20.5-60.0 [facility] Comment on above: Performed By: #### C BC #### [facility] [address] [place] [address] Dr. Nabil Che MANUAL DIFF REQ NO Normal [facility] Comment on above: Performed By: #### C BC #### [facility] [address] [place] [address] Dr. Nabil Che MCH (RBC) [Entitic mass] 31.3 pg Normal 25.9-34.0 [facility] Comment on above: Performed By: #### C BC #### [facility] [address] [place] [address] Dr. Nabil Che MCHC (RBC) [Mass/Vol] 35.0 g/dL Normal 29.9-35.2 [facility] Comment on above: Performed By: #### C BC #### [facility] [facility] [address] [place] [address] Dr. Nabil Che MCV (RBC) [Entitic vol] 89.3 fL Normal 80.0-94.0 [facility] Comment on above: Performed By: #### C BC #### [facility] [address] [place] [address] Dr. Nabil Che MONO # 1.4 103/ul Critically high 0.3-0.8 [facility] Comment on above: Performed By: #### C BC #### [facility] [address] [place] [address] Dr. Nabil Che Monocytes/100 WBC (Bld) 14.5 % Critically high 1.7-12.0 [facility] Comment on above: Performed By: #### C BC #### [facility] [address] [place] [address] Dr. Nabil Che NEUT # 4.9 103/ul Normal 1.4-6.5 [facility] Comment on above: Performed By: #### C BC #### [facility] [address] [place] [address] Dr. Nabil Che Neutrophils/100 WBC (Bld) 51.5 % Normal 43.0-75.0 [facility] Comment on above: Performed By: #### C BC #### [facility] [address] [place] [address] Dr. Nabil Che Platelet mean volume (Bld) [Entitic vol] 10.6 fL Normal 9.5-13.5 [facility] Comment on above: Performed By: #### C BC #### [facility] [address] [place] [address] Dr. Nabil Che PLT 173 103/ul Normal 150-450 [facility] Comment on above: Performed By: #### C BC #### [facility] [address] [place] [address] Dr. Nabil Che RBC 5.24 106/ul Normal 4.70-6.10 [facility] Comment on above: Performed By: #### C BC #### [facility] [address] [place] [address] Dr. Nabil Che WBC 9.4 103/ul Normal 4.0-11.0 [facility] Comment on above: Performed By: #### C BC #### [facility] [address] [place] [address] Dr. Nabil Che PROF CHEM 8 (BAS METB)on Anion gap [Moles/Vol] 11.7 mmol/L Normal [facility] Comment on above: Performed By: #### B MP #### [facility] [address] [place] [address] Dr. Nabil Che Calcium [Mass/Vol] 8.1 mg/dL Critically low 8.5-10.1 [facility] Comment on above: Performed By: #### B MP #### [facility] [address] [address] [address] Nabil Che Chloride [Moles/Vol] 103 mmol/L Normal 98-107 [facility] Comment on above: Performed By: #### B MP #### [facility] [address] [address] [address] Nabil Che CO2 [Moles/Vol] 28.1 mmol/L Normal 21.0-32.0 [facility] Comment on above: Performed By: #### B MP #### [facility] [address] [address] [address] Nabil Che Creatinine [Mass/Vol] 1.34 mg/dL Critically high 0.70-1.30 [facility] Comment on above: Performed By: #### B MP #### [facility] [address] [place] [address] Dr. Nabil Che EGFR-AF ESTONIAN >60 Normal >=60 [facility] Comment on above: Performed By: #### B MP #### [facility] [address] [place] [address] Dr. Nabil Che EGFR-NON AF ESTONIAN 54 mL/min/1.73m2 Critically low >=60 [facility] Comment on above: Performed By: #### B MP #### [facility] [address] [place] [address] Dr. Nabil Che Glucose [Mass/Vol] 87 mg/dL Normal 74-106 [facility] Comment on above: Performed By: #### B MP #### [facility] [address] [address] [address] Nabil Che Potassium [Moles/Vol] 4.8 mmol/L Normal 3.5-5.1 [facility] Comment on above: Performed By: #### B MP #### [facility] [address] [place] [address] Dr. Nabil Che Sodium [Moles/Vol] 138 mmol/L Normal 136-145 [facility] Comment on above: Performed By: #### B MP #### [facility] [address] [place] [address] Dr. Nabil Che Urea nitrogen [Mass/Vol] 14.0 mg/dL Normal 7.0-18.0 [facility] Comment on above: Performed By: #### B MP #### [facility] [address] [place] [address] Dr. Nabil Che Urea nitrogen/Creatinine [Mass ratio] 10.4 mg/mg Normal [facility] Comment on above: Performed By: #### B MP #### [facility] [address] [place] [address] Dr. Nabil Che PROTIMEon 11-21-2021 INR Coag (PPP) [Relative time] 2.25 {INR} Normal [facility] Comment on above: Performed By: #### P SASC #### [facility] [address] [place] [address] Dr. Nabil Che INR GUIDELINES SEE BELOW Normal [facility] Comment on above: Result Comment: LETY RED INR: 2.0 - 3.0 CONDITIONS NOT LISTED BELOW 2.5 - 3.5 FOR PROSTHETIC HEART VALVE REPLACEMENT 2.5 - 3.5 RECURRENT THROMBOSIS Performed By: #### P SASC #### [facility] [address] [place] [address] Dr. Nabil Che PT Coag (PPP) [Time] 23.0 s Critically high 9.0-11.6 [facility] Comment on above: Performed By: #### P SASC #### [facility] [address] [place] [address] Dr. Nabil Che Lab Reportson 09-27-2021 Lab Reports [id number] D:127 Normal [facility] Lab Reports [id number]#1.00C D:127 Normal [facility] Outside [facility] Correspo ndenceon 09-26-2021 Outside [facility] Correspondence [id number]#[id number] D:127 Normal [facility] PROTIMEon 09-26-2021 INR Coag (PPP) [Relative time] 1.70 {INR} Normal [facility] Comment on above: Performed By: #### P SASC #### [facility] [id number] Nabil Che INR GUIDELINES SEE BELOW Normal [facility] Comment on above: Result Comment: LETY RED INR: 2.0 - 3.0 CONDITIONS NOT LISTED BELOW 2.5 - 3.5 FOR PROSTHETIC HEART VALVE REPLACEMENT 2.5 - 3.5 RECURRENT THROMBOSIS Performed By: #### P SASC #### [facility] [address] [address] [address] Nabil Che PT Coag (PPP) [Time] 17.7 s Critically high 9.0-11.6 [facility] Comment on above: Performed By: #### P SASC #### [facility] [address] [address] [address] Nabil Che Reminderson 09-26-2021 Reminders - From: Jarett GUDINO DO To: [facility] - Clinical; Sent: 09/21/2021 19:58:49 EDT Show up: 09/21/2021 19:59:00 EDT Subject: Ambulatory Reminder Due Date/Time: 09/22/2021 19:58:00 EDT MRI is negative Results: Date Result Type Result Name 09/21/2021 17:20 Radiology MRI Brain w/ + w/o Contrast LMOM for patient to return call. Patient returns call, message given and verbalized understanding. 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 CD:[id number] Gh0 bWw+PGhlYWQ+GB1AYVCtZ16 fgEIjaP0VR3cQZR6KXWEDFX AJTQ6DAQ5jyKU9SWmvA2Kqa iAv UrabmQWaPE65WZn1WOM4mNt fHHdxvT5ijIUdO1e1JrLxPP 15nH84OUlcTLJaOqW1JrHlt jsgbWFy V2waQfNpqHIfEvk+PHRhYmx lIHdpZHRoPScxMDAlJyBzdH iaTA4aCv7tYEPnYOUpoWdnh HNlOiBj v4ynFWVaSFrgNT3vsCzdT7I llXJ9SIRez3h2Ys48wZA+PH PnRZG2xVcyMVyqa925IrNmn 0vwAHZ9 iMWaMFsmMRL8Z87vs0R0DMO bTWBxLZU5hMP7eJ3deModbc pfM5HgyOKjMgH8NYM2dZUjs X5ttYtx dmdqbB5bHpm+N08JAB5YHFM JFK1IDuz6Y0XlNhodiYX+PC 01VNWiVZ33qJSwdPBpq0sqm Ep8YaZs CRFpRRO3rJcaFGilj6XrTPK tR02grDZni8L5BGUsaMhvnW OhItHjqND5eH7rQHalbcryv 2hvdzsn Hrodk3yprq45dC29A34lCJj qGDOpGWY9DZDiYVJchFmjfy 2biO9xJt4+YRydt6sxf1vyj Gf4YjFe UYJntlSkaOjqPQW7l4PsEr2 1M2ZrbOzxm0HlGuv9ld17xG Uqz7H7hWJ3HIzvHJMdmY2tW WxlZnQ6 KMNwRiEmhN93qDWuEEevIu2 poPjhvXntDE8kJOSchbiaNM UcaO7bKWOyiAQgiAxuFH5wV TBpbjtm k496LrPpSIF1YPUbsZAwV4R jqG3dTpDfKWVzHEKoO6AcxR AeTEagD067RArhLjB6NJMbx eXtT2Yy ZGLgcBjvJjC2s7I4Ha9Df7V wnlzfLMD2WZxpFOZ0CxZzHr MoHwZ9O8QoFgu2MTEzvVsgF G1sD3Bd KCRucujffelnqML0GOXzDLY ekY98gVKiWYksSr4mj5P8k6 06RLCuNIFeyA31Ly5qvOhcU TBwdCBU oV8ehqhpp4jredsjJfSoWYD pGCz8XXo8JGGazWhwIlOnSR A6TgM8WSB3nYQyyF1jwHtoz rftxZ3h Oyc+S46joX4lVWQ0QZU4mmg rYVPmxjEwIZ64RK41P0LiIs wvdGFibGU+PGRpdiBzdHlsZ K1kUpCh u1gla1XdRLlwT5TlPTWeNSt dFit2KSWtDNT5uEU9kE7uHV VbKRuoc3S9cIB6Y3JdlrEjf c3az8bi SCPvLXkdS41woBXpn4T9KTV ejRJ0QAGypEkoCyDkjL44Wk c+DIDjpKdpi4UsGytvx5src 0mtzYd4 WdMgUDHczdCrtNlnWAF0z6K vGl41J78nLWggXDCkJCQnXZ BpIZNgqFscmf0ttL9yBe7+P GNvbCB3 yAP3qY5bZABtUkX3HWpoT50 9MgBpsPPyLfyjq4ifg6flrX w5HcMfQDMesjDggVybRBU5q 1TdAv55 K29cILmrIUOpIMGvOUHwHDT isKghzv4grV3wGw4+PC9jb2 hvdj53dX13kLE+ZDKmYJO1s WxlPSdw FQVjgI5wBZctOhL2GJAgEoU dcR71wSMwTRrzQu0exOthnM xqGJ1yOGVvdolcp459FwVos 2xkIDEw eZOcPDgpFRG0Y43bx0Y6AWW sTENlWAE4fWO2gV9wwZerwi ogbGVmdDsgdmVydGljYWwtY ZlmL145 IHRvcDsnPlBhdGllbnQgTmF pDIy1I2KrRbh3AWWenKvcNT 6yeJXgFEgfZz3nuNlsqUetF W6aAZYl tyuqz336LpBfy7ubAVRyeWK jVDvuVVC1A97pw8J2AIKrCX AnLRZ1bCJ8pV4zsGbdvohmo GVmdDsg dfCcbPcyXGpzZGmnT648USY ckJgbQvWideDjKOZecYQ0OX 35QL11eGVro6T1jIA2U1AvW GRpbmct vjuweTZ9OWVpLRDvkO79Vg8 woEjaDj4sNGGhSRP2FPNfvH IkA7AavG4lQpYlOCWbXXWbT 3RleHQt TNbiP097VWnuJtG9POXitmL iR6WnOQXqoVkaGqJ1p3U5Zt 0ZP9K5NW57AR06aSPuk3G3h EV8G2Px MPBpmlsxvgjxnOM6YCRaWQX ttL98Rw8exQfxWy1nCJNlKN E3EUFarCJhQ8GcoT9bLuMeC DAwMDAw C7PnlIXgGZgeZ490GYieNlR 7EDCbuxWpW7BdVFFhqGxrAd U4y0P6Tb1TIJa0AF60ZI69w IYdh6M8 vLD7Q1EzSMTfcnkkwmzwuJQ 8CYApDKSngJ03Am6iyLnhKk 3iGTKfGDP9HNCqqSZpC3Uwi W9yQkBw JUNlEGWnV4ZawZEmMBslG19 3DYhmPsN7ZINcapQjN9YtCB SnxKkpUvY8f4N5Qu8YGJBhS M88BDA3 sYI9EG66NE73K7UsLjpaaLK ibGU+PHRhYmxlIHdpZHRoPS saTYAjJxQxtHcdSP4eZl5sB GVyLWNv eMeryMZlWbJyq3gyFVMdMTi kUI9rpBxhU0AypZY3SUNwb1 j1Cp16D79yJ5ViaNX+PGNvb ZH8zLK3 iV5lCtAkQgO2HNpoK446NcG beHXqUwjjw8ull1xshAk1Us K9UBYnhfWzfIszTBL5v5HpI l69S84s IHdpZHRoPSIxNSUiIHZhbGl wrq5lcH7lXd8+ONFybRP8qR P8lH5qDdXoLoC3KYkrV828O nRvcCIv Dcqoz0nsu3agjBx9WdNnQZM ygfIebGpgOYC3i1ExAp14R9 NboZfsj7WzElv7if71bFMwv 2N1wZV3 S2CqJAMjpwtvuJRpnLwjSG1 eXQImpoomVQThrR7iQFEtD9 b3RvKqVeR4CFixU8NfnrS5U DEwcHQg YCiiDTR8K15ol0G6RPXyWGG yPVD6kMX7yH5msLwbxfrygV VmdDsgdmVydGljYWwtYWxpZ 246IHRv kUblZLZixU3nYSQlmHKosRo aWJ4kPBFxsgewBfsBToXPOX JHFDNRMVQ4E9IuWoi2WGUma KmxGK7t cZBsYKwxQm5qiXctwVwqHJ0 yXMGlilkjPCMhkM2lKTPkgS VpaRjbVJ5oAITxtseqd382N iAxMHB0 GCEryGCjB0WupM8xFqOtUHO qSWIjC7ZjaEPnDJviI170PC lgPsM8SHHamxNpZ6EiBYCmm WduOiB0 v4O5Pn9uMk9uCJ3dQRAwVJ8 3EU56bLLmj8C4dSU5L6VkWE QabelqkxkceAR9KTVqQCKtu B31nIZh ONkzWj7re9Y7v198IFJzYHV pvP90Rq4ejMyhWXUabXTEwZ 5thqwyw3wnbzibFvRaDEBwJ St5TVt9 CPAiqStoTtMqYIW3OfM4VMM 7fCMfeO7yxFjvxbsgoJ6gSd c+AgBmNSHtytY7J0PcUkj4A CBzdHls ZX2hkAVsHUsyFg5rjDxtyZo kBH5jJORlxjywDNOkmC0eII VfhNAvoBymWU5gHAEonooco 250OiAx YIT2UMDxnOHqI1KjcT6tVtE eCZWgDAZyT9RoiCByRNhrX2 14YIgmXuG5BSAwumSxV3NtI WFsaWdu VpC5e8D8Gv9IQTkeQT27XK0 3rBMll6C6uTI3H6IiNQCcca ekcwpuyWJ7JRFgOICgdS01p GFkZGlu Nf8zk1O3a575RDHmNVZdmJ4 7Yp2cxLgyBSDhdVBKuU2zpk ucz5shxapzZmTxGHBzPIb9W Sp6MKGn bOlkSlIpDML1IdK5XRY2iJC xjX7ykHwuvbxcfR0jMks+T3 S7iHL7kLKqfXrudNT+PC90c j31X7Fm AukwVno0BIZwNFT5zDF9mQ2 vFOXvARnlb8E2rND6X9Smvv Ejci3ys1gpNVBpBVdmY54ij UXha0T9 DFYgnYK6AWXoaGgzQqGvqM3 3Oyc+KLMlfCkkw7CzNhynx7 ven5pjmLp8PrMyCHIzqqYkj WduPSJ0 z3XdXm42E81qHJjmVDIyCIM nRIMlACSuaSierx3ojZ6hGq 8+OZUzxTV3uAR4bG9rDaOyH sX8WMda A272UzBfqLIuFikej0sgt0c dfHo5RfInLYJncqZkjAniHE X6m3HkAi17E6BhdScew3TmA hd1yo23 oPWqs3Q7tFQ9L8KvROHdydx qyNAzcWqpKT2lFBUupyfpSG ZpoX4zVHWpR9m8MwTtAeP1Q MolT5Ga ucU1OAVccXIhNJKdcKAQtM8 exqilb8afwyrqDyNbZCDiGO s1QGj4LCXwxLhiNwKtNTT8T uN4DTB3 fVStdI8ljZgjqmuvxN3hWqv +OGq8c8absNPwAC3goDB4XA 50BH16fXPtq3U0sTR9Y7SsF GRpbmct kodmlHU8IICmYFYgiR59Hz3 atSavDf4jAMWfNZQ2OMJerH DhT5QisG2wHpIlGKTzSJTfE 3RleHQt GWzgP993IHtjWeM4RXXmrrQ yV4PwSHZylLmbVdU6b0I8Vh 5FPJ35BT55LD99uPAvk2J2b MF1A3Rr IITkordugpaicWM0GLJvFEL zrZ96Rz3smJdyDw6yKCBjVL I5MOUnlUPmL9MpnW5uFyIhA DAwMDAw S6TkrIXaBQjaO711YLdiOhS 3CGRitxQdU7CiQOYlfEpsZm S9e7H4Zo7INr16OZ02EC63s IHmo2E2 gJS0S0WlYNEgldjbluyptQJ 2CNOuTNAacE67Gj1wbFiuLq 5vDTDeJIT8QGOcpAUpY2Rlo Z9kLiJe WJZfZMEnK8MglYZzVGvxM37 6SGzeObL8BYZrtzMuN0IbAY KltMegKwH3e0S2Fv4SMNdmq xd5P2Of PjwvdHI+IU33JMRqKZ40vCB glKSrv5qcoMi4ItHrURFjMX I6dNtgOVroc6YuUDLsO73sl AUeb2A8 IGNv (more content not included)... Normal [facility] MRI Brain w/ + w/o Contrasto [...] MultiHance Contrast amount in ml's: 20 Normal [facility] Consent for Treatmenton 05-2 Consent for Treatment [id number]#1.00C D:127 Normal [facility] RAD - MRI Screening Formon 0 09-16-2021 RAD - MRI Screening Form [id number]#1.00C D:127 Normal [facility] Ambulatory Visit Summaryon 0 09-09-2021 Ambulatory Visit Summary ABHINAV FELIX :1960 Visit Date:09/09/2021 Ambulatory Visit Instructions Your Diagnosis Preventative health care Trigeminal neuralgia Dizziness Hearing loss on right Your Care Team Attending Physician - Jarett GUDNIO DO Primary Care Physician - Jarett GUDINO DO This Is Your Medications List [...] Schedule the Following Appointments Follow Up with Jarett GUDINO DO, FAM When: In 1 year Where: [address] [place] [address]- You Need to Complete the Following MRI Brain w/o Contrast, 09/09/21, Routine, Order for Future Visit, Transport Mode: Ambulatory, Reason: Headache, No, No, Dizziness Normal Trigeminal neuralgia, Need IAC evaluation, pp_set_radiolog y_subspecialty, Faraz [place] Clifford\.br\ Medications\.br \ What How Much When Instructions\.b [...] of prostate\.br\ Trigeminal neuralgia\.br\ Vasovagal attack\.br\ \.br\ [facility] Family Medicine Office/Clini c Noteon 05-20-2022 Family Medicine Office/Clinic Note Chief Complaint Yearly [...] his labs drawn monthly at [facility], but no results are documented or filed in the chart. Also takes Aciphex 20mg once daily. States this is still working well for him. Labs completed at [facility] on 09/05/21. States he has had a colonoscopy within the past [address] Estes ([facility]). History of Present Illness I have reviewed [...] # 30 tab(s), Refills(s) 0, Pharmacy: [facility]/pharmacy #[id number], 180.3, cm, 05/20/20 15:18:00 EST, Height/Length Dosing, 108.4, kg, 05/20/20 15:18:00 EST, Weight Dosing Follow-up With When Contact Information Jarett GUDINO DO, FAM In 1 year [address] [place] [address]- Additional Instructions: Problem List/Past Medical History Ongoing [...] influenza virus vaccine, inactivated 02/12/2013 Recorded Normal [facility] Comment on above: Result Comment: Elec tronically Signed By: Jarett GUDINO DO\Date and Time Signed: 09/09/21 10:19 EDT Lab Reportson 08-31-2021 Lab Reports [id number]#1.00C D:127 Normal [facility] Tobacco Screening.on 022 Tobacco use status CPHS a) Yes [facility]-Sandu riddhi 250 DO Work Phone: Tobacco Screening. Yes -[facility]-Sandu riddhi 250 DO Work Phone: CBCon 02-11-2019 Erythrocyte distribution width (RBC) [Ratio] 12.9 % Normal 11.5 - 14.5 [facility] Comment on above: Performed By: #### C BC #### [address] [address] Hematocrit (Bld) [Volume fraction] 48.1 % Normal 41.0 - 52.0 [facility] Comment on above: Performed By: #### C BC #### [address] [address] Hemoglobin (Bld) [Mass/Vol] 16.7 g/dL Normal 13.5 - 17.5 [facility] Comment on above: Performed By: #### C BC #### [address] [address] MCHC (RBC) [Mass/Vol] 34.7 g/dL Normal 32.0 - 36.0 [facility] Comment on above: Performed By: #### C BC #### [address] [address] MCV (RBC) [Entitic vol] 91 fL Normal 80 - 100 [facility] Comment on above: Performed By: #### C BC #### [address] [address] Platelets (Bld) [#/Vol] 182 10*3/uL Normal 150 - 450 [facility] Comment on above: Performed By: #### C BC #### [address] [address] RBC (Bld) [#/Vol] 5.26 x10E12/L Normal 4.50 - 5.90 [facility] Comment on above: Performed By: #### C BC #### [address] [address] WBC (Bld) [#/Vol] 9.3 10*3/uL Normal 4.4 - 11.3 [facility] Comment on above: Performed By: #### C BC #### [address] [address] CREATININEon 02-11-2019 Creatinine [Mass/Vol] 0.87 mg/dL Normal 0.50 - 1.30 [facility] Comment on above: Performed By: #### C REAT #### [address] [address] Creatinine [Mass/Vol] mg/dL Normal >60 [facility] Comment on above: Result Comment: CALC ULATIONS OF ESTIMATED GFR ARE PERFORMED USING THE MDRD STUDY EQUATION FOR THE IDMS-TRACEABLE CREATININE METHODS. CLIN CHEM 2007;53:766-72 Performed By: #### C REAT #### [address] [address] ELECTROLYTE PANELon 02-12-20 19 Anion gap [Moles/Vol] 12 mmol/L Normal 10 - 20 [facility] Comment on above: Performed By: #### E LECT #### [address] [address] Chloride [Moles/Vol] 105 mmol/L Normal 98 - 107 [facility] Comment on above: Performed By: #### E LECT #### [address] [address] HCO3 (Bld) [Moles/Vol] 28 mmol/L Normal 21 - 32 [facility] Comment on above: Performed By: #### E LECT #### [address] [address] Potassium [Moles/Vol] 4.1 mmol/L Normal 3.5 - 5.3 [facility] Comment on above: Performed By: #### E LECT #### [address] [address] Sodium [Moles/Vol] 141 mmol/L Normal 136 - 145 [facility] Comment on above: Performed By: #### E LECT #### [address] [address] UREA NITROGENon 02-11-2019 Urea nitrogen [Mass/Vol] 12 mg/dL Normal 6 - 23 [facility] Comment on above: Performed By: #### U BELÉN #### [address] [address] ALT (SGPT)on 12-26-2017 ALT enzyme act/vol 18 U/L Normal 10-52 [facility] Comment on above: Performed By: #### 1 [id number] ####[facility] [address] [place] [address] AST (SGOT)on 12-26-2017 AST enzyme act/vol 20 U/L Normal 13-39 [facility] Comment on above: Performed By: #### 1 [id number] ####[facility] [address] [place] [address] CBCon 12-26-2017 Erythrocyte distribution width Auto Ratio (RBC) 13.4 % Normal 12.0-15.4 [facility] Comment on above: Performed By: #### 2 [id number] ####[facility] [address] [place] [address] Hematocrit Auto Volume Fraction (Bld) 48.6 % Normal 38.4-54.9 [facility] Comment on above: Performed By: #### 2 [id number] ####[facility] [address] [place] [address] Hemoglobin mass conc (Bld) 16.3 g/dL Normal 12.8-17.7 [facility] Comment on above: Performed By: #### 2 [id number] ####[facility] [address] [place] [address] MCH Auto Entitic mass (RBC) 31.0 pg Normal 27.5-32.9 [facility] Comment on above: Performed By: #### 2 [id number] ####[facility] [address] [place] [address] MCHC Auto mass conc (RBC) 33.5 g/dL Normal 30.5-35.4 [facility] Comment on above: Performed By: #### 2 [id number] ####[facility] [address] [place] [address] MCV Auto Entitic volume (RBC) 92.6 fL Normal 83.3-98.2 [facility] Comment on above: Performed By: #### 2 [id number] ####[facility] [address] [place] [address] NRBC Absolute 0.00 10*3/uL Normal [facility] Comment on above: Performed By: #### 2 [id number] ####[facility] [address] [place] [address] NRBC Automated 0.0 /100{WBCs} Normal [facility] Comment on above: Performed By: #### 2 [id number] ####[facility] [address] [place] [address] Platelet mean volume Auto Entitic volume (Bld) 12.0 fL Normal 9.9-12.1 [facility] Comment on above: Performed By: #### 2 [id number] ####[facility] [address] [place] [address] Platelets Auto #/vol (Bld) 156 10*3/uL Normal 155-404 [facility] Comment on above: Performed By: #### 2 [id number] ####[facility] [address] [place] [address] RBC Auto #/vol (Bld) 5.25 10*6/uL Normal 4.08-6.37 [facility] Comment on above: Performed By: #### 2 [id number] ####[facility] [address] [place] [address] RDW SD 45.5 fL Normal 39.3-48.6 [facility] Comment on above: Performed By: #### 2 [id number] ####[facility] [address] [place] [address] WBC Auto #/vol (Bld) 7.2 10*3/uL Normal 4.2-11.0 [facility] Comment on above: Performed By: #### 2 [id number] ####[facility] [address] [place] [address] Creatinineon 12-26-2017 Creatinine mass conc 0.92 mg/dL Normal 0.50-1.30 [facility] Comment on above: Performed By: #### 1 [id number] ####[facility] [address] [place] [address] GFR/1.73 sq M.predicted MDRD vol rate/area mL/min/{1.73_m2} Normal [facility] Comment on above: Result Comment: Inte rpretation for Chronic Kidney Disease:Stages 1&2 >60 Healthy or potential kidney damage.Mild decrease of GFR.Stage 3 30-59 Moderate decrease of GFR.Stage 4 15-29 Severe decrease of GFR.Stage 5 <15 Kidney failure or on dialysis. Performed By: #### 1 [id number] ####[facility] [address] [place] [address] Electrolyte Panelon 12-27-19 18 Anion gap 3 molar conc 9 mmol/L Low 10-20 [facility] Comment on above: Performed By: #### 1 [id number] ####[facility] [address] [place] [address] Chloride molar conc 106 mmol/L Normal 98-107 [facility] Comment on above: Performed By: #### 1 [id number] ####[facility] [address] [place] [address] HCO3 molar conc (Bld) 29 mmol/L Normal 21-32 [facility] Comment on above: Performed By: #### 1 [id number] ####[facility] [address] [place] [address] Potassium molar conc 4.1 mmol/L Normal 3.5-5.1 [facility] Comment on above: Performed By: #### 1 [id number] ####[facility] [address] [place] [address] Sodium molar conc 140 mmol/L Normal 136-145 [facility] Comment on above: Performed By: #### 1 [id number] ####[facility] [address] [place] [address] Urea Nitrogenon 12-26-2017 Urea nitrogen mass conc 10 mg/dL Normal 6-23 [facility] Comment on above: Performed By: #### 1 [id number] ####[facility] [address] [place] [address] Vital Signs Date Time Vital Sign Value Performing Clinician Facility 12-17-2024 11:35-0400 Body height 180.34 cm Jared Leong MD Work Phone: [facility] 12-17-2024 11:35-0400 Body mass index (BMI) [Ratio] 31.2 kg/m2 Jared Leong MD Work Phone: [facility] 12-17-2024 11:35-0400 Body weight 101.6 kg Jared Leong MD Work Phone: [facility] 12-17-2024 11:35-0400 Diastolic blood pressure 88 mm[Hg] Jared Leong MD Work Phone: [facility] 12-17-2024 11:35-0400 Heart rate 56 /min Jared Leong MD Work Phone: [facility] 12-17-2024 11:35-0400 Systolic blood pressure 159 mm[Hg] Jared Leong MD Work Phone: [facility] 11-05-2024 13:12-0400 Body height 180.34 cm Jared Leong MD Work Phone: [facility] 11-05-2024 13:12-0400 Body mass index (BMI) [Ratio] 31.1 kg/m2 Jared Leong MD Work Phone: [facility] [facility] 11-[facility]-2024 13:12-0400 Body temperature 98.8 [degF] Jared Leong MD Work Phone: [facility] 11-05-2024 13:12-0400 Body weight 101.37 kg Jared Leong MD Work Phone: [facility] 11-05-2024 13:12-0400 Diastolic blood pressure 80 mm[Hg] Jared Leong MD Work Phone: [facility] 11-05-2024 13:12-0400 Heart rate 63 /min Jared Leong MD Work Phone: [facility] 11-05-2024 13:12-0400 Systolic blood pressure 146 mm[Hg] Jared Leong MD Work Phone: [facility] 09-11-2024 09:40-0400 Diastolic blood pressure 63 mm[Hg] Jared Leong MD Work Phone: [facility] 09-11-2024 09:40-0400 Heart rate 58 /min Jared Leong MD Work Phone: [facility] 09-11-2024 09:40-0400 Respiratory rate 20 /min Jared Leong MD Work Phone: [facility] 09-11-2024 09:40-0400 SaO2% (BldA) [Mass fraction] 98 % Jared Leong MD Work Phone: [facility] 09-11-2024 09:40-0400 Systolic blood pressure 100 mm[Hg] Jared Leong MD Work Phone: [facility] 09-11-2024 07:27-0400 Body height 180.34 cm Jared Leong MD Work Phone: [facility] 09-11-2024 07:270400 Body weight 99.79 kg Jared Leong MD Work Phone: [facility] 08-19-2024 14:31-0400 Body height 180.34 cm Jared Leong MD Work Phone: [facility] 08-19-2024 14:31-0400 Body mass index (BMI) [Ratio] 30.8 kg/m2 Jared Leong MD Work Phone: [facility] 08-19-2024 14:31-0400 Body weight 100.24 kg Jared Leong MD Work Phone: [facility] 08-19-2024 14:31-0400 Diastolic blood pressure 76 mm[Hg] Jared Leong MD Work Phone: [facility] 08-19-2024 14:31-0400 Heart rate 64 /min Jared Leong MD Work Phone: [facility] 08-19-2024 14:31-0400 Respiratory rate 20 /min Jared Leong MD Work Phone: [facility] 08-19-2024 14:31-0400 SaO2% (BldA) [Mass fraction] 97 % Jared Leong MD Work Phone: [facility] 08-19-2024 14:31-0400 Systolic blood pressure 125 mm[Hg] Jared Leong MD Work Phone: [facility] 08-15-2024 10:07-0400 Body height 180.34 cm Jared Leong MD Work Phone: [facility] 08-15-2024 10:07-0400 Body mass index (BMI) [Ratio] 30.7 kg/m2 Jared Leong MD Work Phone: [facility] 08-15-2024 10:07-0400 Body weight 99.79 kg Jared Leong MD Work Phone: [facility] 08-15-2024 10:07-0400 Diastolic blood pressure 69 mm[Hg] Jared Leong MD Work Phone: [facility] 08-15-2024 10:07-0400 Heart rate 57 /min Jared Leong MD Work Phone: [facility] 08-15-2024 10:07-0400 Systolic blood pressure 134 mm[Hg] Jared Leong MD Work Phone: [facility] 08-01-2024 13:19-0400 Body height 180.3 cm Ko Gamble MD Work Phone: [facility] 08-01-2024 13:19-0400 Body mass index (BMI) [Ratio] 30.91 kg/m2 Ko Gamble MD Work Phone: [facility] 08-01-2024 13:19-0400 Body weight 100.52 kg Ko Gamble MD Work Phone: [facility] 08-01-2024 13:19-0400 Diastolic blood pressure 70 mm[Hg] Ko Gamble MD Work Phone: [facility] 08-01-2024 13:19-0400 Heart rate 58 /min Ko Gamble MD Work Phone: [facility] 08-01-2024 13:19-0400 Systolic blood pressure 132 mm[Hg] Ko Gamble MD Work Phone: [facility] 06-17-2024 10:48-0500 Body height 180.34 cm Jared Leong MD Work Phone: [facility] 06-17-2024 10:48-0500 Body mass index (BMI) [Ratio] 30.5 kg/m2 Jared Leong MD Work Phone: [facility] 06-17-2024 10:48-0500 Body weight 99.33 kg Jared Leong MD Work Phone: [facility] 06-17-2024 10:48-0500 Diastolic blood pressure 74 mm[Hg] Jared Leong MD Work Phone: [facility] 06-17-2024 10:48-0500 Heart rate 58 /min Jared Leong MD Work Phone: [facility] 06-17-2024 10:48-0500 Systolic blood pressure 126 mm[Hg] Jared Leong MD Work Phone: [facility] 06-14-2024 09:15-0500 SaO2% (BldA) [Mass fraction] 96 % Jared Leong MD Work Phone: [facility] 06-14-2024 09:06-0500 Body height 180.34 cm Jared Leong MD Work Phone: [facility] 06-14-2024 09:06-0500 Body mass index (BMI) [Ratio] 30.4 kg/m2 Jared Leong MD Work Phone: [facility] 06-14-2024 09:06-0500 Body temperature 98.4 [degF] Jared Leong MD Work Phone: [facility] 06-14-2024 09:06-0500 Body weight 99.05 kg Jared Leong MD Work Phone: [facility] 06-14-2024 09:06-0500 Diastolic blood pressure 75 mm[Hg] Jared Leong MD Work Phone: [facility] 06-14-2024 09:06-0500 Heart rate 62 /min Jared Leong MD Work Phone: [facility] 06-14-2024 09:06-0500 Systolic blood pressure 133 mm[Hg] Jared Leong MD Work Phone: [facility] 01-04-2024 12:51-0400 Body height 180.3 cm Ko Gamble MD Work Phone: [facility] 01-04-2024 12:51-0400 Body mass index (BMI) [Ratio] 30.96 kg/m2 Ko Gamble MD Work Phone: [facility] 01-04-2024 12:51-0400 Body weight 100.7 kg Ko Gamble MD Work Phone: [facility] 01-04-2024 12:51-0400 Diastolic blood pressure 64 mm[Hg] Ko Gamble MD Work Phone: [facility] 01-04-2024 12:51-0400 Heart rate 63 /min Ko Gamble MD Work Phone: [facility] 01-04-2024 12:51-0400 Systolic blood pressure 118 mm[Hg] Ko Gamble MD Work Phone: [facility] 02-13-2023 13:30-0400 Body height 181.61 cm Uche Porter Other [employer] Other 02-13-2023 13:30-0400 Body mass index (BMI) [Ratio] 32.73 kg/m2 Augustoalverto Porter Other [employer] Other 02-13-2023 13:30-0400 Body temperature 97.1 [degF] Uche Porter Other [employer] [facility] Other 02-13-2023 13:30-0400 Body weight 107.96 kg Uche Porter Other [employer] [facility] Other 02-13-2023 13:30-0400 Diastolic blood pressure 76 mm[Hg] Uche Porter Other [facility] [facility] Other 02-13-2023 13:30-0400 Respiratory rate 20 /min Uche Porter Other [facility] [facility] Other 02-13-2023 13:30-0400 SaO2% (BldA) [Mass fraction] 96 % Uche Catnguyễn Other [facility] Other 02-13-2023 13:30-0400 Systolic blood pressure 130 mm[Hg] Uche Catnguyễn Other [facility] [facility] Other 02-09-2023 10:45-0400 Body height 181.61 cm Jared Leong Other [employer] Other 02-09-2023 10:45-0400 Body mass index (BMI) [Ratio] 32.92 kg/m2 Jared Leong Other [employer] [facility] Other 02-09-2023 10:45-0400 Body weight 108.59 kg Jared Leong Other [employer] [facility] Other 02-09-2023 10:45-0400 Diastolic blood pressure 72 mm[Hg] Jared Leong Other [employer] Other 02-09-2023 10:45-0400 SaO2% (BldA) [Mass fraction] 97 % Jared Leong Other [employer] [facility] Other 02-09-2023 10:45-0400 Systolic blood pressure 118 mm[Hg] Jared Leong Other [facility] Other 12-12-2022 09:59-0400 Body height 180.34 cm Jared Leong Work Phone: [employer] 250 DO Work Phone: 12-12-2022 09:59-0400 Body mass index (BMI) [Ratio] 33.19 kg/m2 Jared Leong Work Phone: [employer] 250 DO Work Phone: 12-12-2022 09:59-0400 Body surface area Derived from formula 2.27 m2 Jared Leong Work Phone: [facility] [employer] 250 DO Work Phone: 12-12-2022 09:59-0400 Body weight 107.96 kg Jared Leong Work Phone: [facility] [employer] 250 DO Work Phone: 12-12-2022 09:59-0400 Diastolic blood pressure 64 mm[Hg] Jared Leong Work Phone: [facility] [employer] 250 DO Work Phone: 12-12-2022 09:59-0400 Heart rate 66 /min Jared Leong Work Phone: [facility] [employer] 250 DO Work Phone: 12-12-2022 09:59-0400 Systolic blood pressure 110 mm[Hg] Jared Leong Work Phone: [facility] [employer] 250 DO Work Phone: 11-07-2022 15:00-0400 Body height 181.61 cm Uche Porter Other [employer] [facility] Other 11-07-2022 15:00-0400 Body mass index (BMI) [Ratio] 33.14 kg/m2 Uche Porter Other [employer] [facility] Other 11-07-2022 15:00-0400 Body temperature 97.8 [degF] Uche Porter Other [employer] Other 11-07-2022 15:00-0400 Body weight 109.32 kg Uche Porter Other [employer] Other 11-07-2022 15:00-0400 Diastolic blood pressure 81 mm[Hg] Uche Porter Other [employer] Other 11-07-2022 15:00-0400 Respiratory rate 20 /min Uche Porter Other [employer] Other 11-07-2022 15:00-0400 SaO2% (BldA) [Mass fraction] 96 % Uche Porter Other [employer] [facility] Other 11-07-2022 15:00-0400 Systolic blood pressure 128 mm[Hg] Uche Porter Other [employer] [facility] Other 09-04-2022 10:00-0400 Body height 181.61 cm Jared Leong Other [employer] Other 09-04-2022 10:00-0400 Body mass index (BMI) [Ratio] 33.97 kg/m2 Jared Leong Other [employer] [facility] Other 09-04-2022 10:00-0400 Body weight 112.04 kg Jared Leong Other [employer] [facility] Other 09-04-2022 10:00-0400 Diastolic blood pressure 72 mm[Hg] Jared Leong Other [employer] Other 09-04-2022 10:00-0400 SaO2% (BldA) [Mass fraction] 92 % Jared Leong Other [employer] Other 09-04-2022 10:00-0400 Systolic blood pressure 118 mm[Hg] Jared Leong Other [facility] [facility] Other 06-07-2022 09:01-0500 Body height 180.34 cm Jarett Finney Terese Work Phone: [facility]Shwf[facility]Fbcey[facility] [place] 250 DO Work Phone: 06-07-2022 09:01-0500 Body mass index (BMI) [Ratio] 33.75 kg/m2 Jarett Gudino Work Phone: GP[facility]Fgcbwovltr-Cmrkbb [place] 250 DO Work Phone: 06-07-2022 09:01-0500 Body surface area Derived from formula 2.29 m2 Jarett Gudino Work Phone: [facility]Bycpepoxps[facility]Aypchu [place] 250 DO Work Phone: 06-07-2022 09:01-0500 Body weight 109.77 kg Jarett Gudino Work Phone: KX-Yjwvmrpieg-Crldom [place] 250 DO Work Phone: 06-07-2022 09:01-0500 Diastolic blood pressure 82 mm[Hg] Jarett Gudino Work Phone: RF-Lkaliaodfz-Poevqk [place] 250 DO Work Phone: 06-07-2022 09:01-0500 Heart rate 52 /min Jarett Gudino Work Phone: EB-Hqzreelvvo-Gcjwjh [place] 250 DO Work Phone: 06-07-2022 09:01-0500 Systolic blood pressure 130 mm[Hg] Jarett Gudino Work Phone: RA-Taemblkbxk-Ppppvq [place] 250 DO Work Phone: 12-06-2021 09:15-0400 Body height 180.34 cm Jarett Gudino Work Phone: -[facility] 250 DO Work Phone: 12-06-2021 09:15-0400 Body mass index (BMI) [Ratio] 32.78 kg/m2 Jarett Gudino Work Phone: -[facility] 250 DO Work Phone: 12-06-2021 09:15-0400 Body surface area Derived from formula 2.26 m2 Jarett Gudino Work Phone: [facility] 250 DO Work Phone: 12-06-2021 09:15-0400 Body weight 106.6 kg Jarett Gudino Work Phone: [facility] 250 DO Work Phone: 12-06-2021 09:15-0400 Diastolic blood pressure 70 mm[Hg] Jarett Gudino Work Phone: [facility] 250 DO Work Phone: 12-06-2021 09:15-0400 Heart rate 50 /min Jarett Gudino Work Phone: [facility] 250 DO Work Phone: 12-06-2021 09:15-0400 Systolic blood pressure 136 mm[Hg] Jarett Gudino Work Phone: [facility] 250 DO Work Phone: 09-09-2021 09:34-0400 Blood Pressure Location Jarett GUDINO [facility] 09-09-2021 09:34-0400 Body temperature 97.52 [degF] Jarett GUDINO [facility] 09-09-2021 09:34-0400 Diastolic blood pressure 74 mm[Hg] Jarett GUDINO [facility] 09-09-2021 09:34-0400 Heart rate 60 /min Jarett GUDINO [facility] 09-09-2021 09:34-0400 SaO2% (BldA) [Mass fraction] 95 % Jarett GUDINO [facility] 09-09-2021 09:34-0400 Systolic blood pressure 122 mm[Hg] Jarett GUDINO [facility] 05-24-2021 15:13-0500 Body height 180.34 cm Jarett Gudino Work Phone: [facility] 250 DO Work Phone: 05-24-2021 15:13-0500 Body mass index (BMI) [Ratio] 32.36 kg/m2 Jarett Gudino Work Phone: [facility] 250 DO Work Phone: 05-24-2021 15:13-0500 Body surface area Derived from formula 2.25 m2 Jarett Gudino Work Phone: [facility] 250 DO Work Phone: 05-24-2021 15:13-0500 Body weight 105.24 kg Jarett Gudino Work Phone: [facility] 250 DO Work Phone: 05-24-2021 15:13-0500 Diastolic blood pressure 78 mm[Hg] Jarett Gudino Work Phone: [facility] 250 DO Work Phone: 05-24-2021 15:13-0500 Heart rate 61 /min Jarett Gudino Work Phone: [facility] 250 DO Work Phone: 05-24-2021 15:13-0500 Systolic blood pressure 119 mm[Hg] Jarett Gudino Work Phone: [facility] 250 DO Work Phone: Encounters Encounter Date Encounter Type Care Provider Facility Start: 12-17-2024 End: 12-17-2024 ambulatory Jared Leong MD Work Phone: [facility] Work Phone: Start: 12-17-2024 End: 12-17-2024 Patient encounter procedure Jared Leong MD -[facility] Work Phone: Start: 12-08-2024 Non-patient / Non-visit America Palmer CMA -[facility] Work Phone: Start: 12-05-2024 Non-patient / Non-visit Shon Sapp DO [facility] Work Phone: Start: 11-05-2024 End: 11-05-2024 ambulatory Jared Leong MD Work Phone: [facility] Work Phone: Start: 11-05-2024 End: 11-05-2024 Patient encounter procedure Jared Leong MD -[facility] Work Phone: Start: 09-11-2024 Non-patient / Non-visit Jared Leong MD Work Phone: [facility] Work Phone: Start: 09-11-2024 End: 09-11-2024 Admission to same day surgery center Jared Leong MD Work Phone: [facility] Work Phone: Start: 09-11-2024 End: 09-11-2024 ambulatory Jared Leong MD Work Phone: [facility] Work Phone: Start: 08-19-2024 End: 08-19-2024 Patient encounter procedure Jared Leong MD Work Phone: [facility] Work Phone: Start: 08-15-2024 End: 08-15-2024 Patient encounter procedure Jared Leong MD Work Phone: [facility] Work Phone: Start: 08-06-2024 End: 08-06-2024 Patient encounter procedure Jared Leong MD Work Phone: [facility] [address] Work Phone: Start: 08-06-2024 End: 08-06-2024 ambulatory Jared Leong MD Work Phone: [facility] Work Phone: Start: 08-01-2024 End: 08-01-2024 Office outpatient visit 25 minutes Ko Gamble MD Work Phone: [facility] Comment on above: Obesity, Class I, BM I 30-34.9 (Primary Dx); Paroxysmal atrial fibrillation (Multi); High risk medication use; High triglycerides; Palpitations; Mixed hyperlipidemia; PVC (premature ventricular contraction); BMI 30.0-30.9,adult; Current every day smoker Start: 08-01-2024 End: 08-01-2024 ambulatory [facility] Ambulatory Start: 07-25-2024 Non-patient / Non-visit Jared Leong MD Work Phone: [facility] Work Phone: Start: 06-17-2024 End: 06-17-2024 Patient encounter procedure Jared Leong MD Work Phone: [facility] Work Phone: Start: 06-14-2024 End: 06-14-2024 ambulatory Sandirenetta Collazo Facility:[facility] Start: 06-14-2024 End: 06-14-2024 Patient encounter procedure Jared Leong MD Work Phone: [facility] Work Phone: Start: 01-04-2024 End: 01-04-2024 Office outpatient visit 25 minutes Ko Gamble MD Work Phone: [facility] Comment on above: Paroxysmal atrial fi brillation (Multi); PVC (premature ventricular contraction); TIA (transient ischemic attack); Mixed hyperlipidemia; High risk medication use; Stage 3a chronic kidney disease (Multi); BMI 30.0-30.9,adult; Current every day smoker Start: 01-04-2024 End: 01-04-2024 ambulatory [facility] Start: 09-25-2023 Patient encounter status Eva Leong MD Work Phone: [facility] Start: 08-07-2023 End: 08-07-2023 ambulatory MD Jared Leong Work Phone: [facility] Work Phone: Start: 08-07-2023 End: 08-07-2023 Patient encounter procedure MD Jared Leong Work Phone: [facility] [address] Work Phone: Start: 07-27-2023 Non-patient / Non-visit MD Maribel Leong Work Phone: [facility] Work Phone: Start: 06-12-2023 Non-patient / Non-visit MD Maribel Leong Work Phone: [facility] Work Phone: Start: 02-13-2023 End: 02-13-2023 ambulatory Uche Porter Other [facility] [employer] Other Start: 02-13-2023 Office outpatient vi sit 25 minutes Uche Porter [facility] Start: 02-09-2023 End: 02-09-2023 ambulatory Jared Leong Other [facility] [employer] Other Start: 02-09-2023 Office outpatient vi sit 15 minutes Jared Leong [facility] Start: 01-05-2023 Telephone encounter Jared garcia Work Phone: [facility] 250 DO Work Phone: Start: 12-12-2022 Office outpatient vi sit 25 minutes Jared Leong Work Phone: [facility] 250 DO Work Phone: Start: 12-12-[address] Jarett López Facility: Start: 11-07-2022 End: 11-07-2022 ambulatory Uche Catnguyễn Other [employer] Other Start: 11-07-2022 Office outpatient vi sit 15 minutes Kamalverto German [facility] Start: 10-30-2022 End: 10-30-2022 ambulatory Jared Leong Other [employer] Other Start: 10-30-2022 Telephone encounter Jared Leong [facility] Start: 09-29-2022 End: 09-29-2022 ambulatory Jared Leong Other [employer] Other Start: 09-29-2022 Telephone encounter Jared Leong [facility] Start: 09-21-2022 End: 09-21-2022 ambulatory Jared Leong Other [employer] Other Start: 09-21-2022 Telephone encounter Jared Leong [facility] Start: 09-04-2022 Encounter for genera l adult medical examination without abnormal findings Jared Leong [facility] Start: 09-04-2022 Initial preventive medicine new patient 40-64yrs Jared Leong [facility] Start: 09-04-2022 End: 09-05-[address] JARED LEONG [employer] [place] [employer] Other Start: 07-27-2022 End: 07-28-[address] JARETT GUDINO Facility:[facility] Start: 06-07-2022 End: 06-08-[address] KO GAMBLE Facility:[facility] Start: 06-07-2022 Office outpatient vi sit 25 minutes Jarett Gudino Work Phone: [facility]Pnstsppjcb-Nmqgxkts 250 DO Work Phone: Start: 06-07-[address] Jarett Larios [facility] Te[place] Facility:[id number] Start: 05-24-2022 End: 05-25-[address] JARETT Finney TERESE Facility: Start: 04-27-2022 End: 04-28-[address] JARETT GUDINO Facility: Start: 04-07-2022 End: 04-08-[address] JARETT Finney TERESE Facility:[facility] Start: 03-27-2022 End: 03-28-[address] JARETT Finney TERESE Facility:[facility] Start: 02-22-2022 End: 02-23-[address] JARETT GUDINO Facility: Start: 01-25-2022 End: 01-26-[address] JARETT Finney TERESE Facility: Start: 12-06-2021 Office outpatient vi sit 25 minutes Jarett Gudino Work Phone: [facility] 250 DO Work Phone: Start: 11-21-2021 End: 11-22-[address] JARETT Finney TERESE Facility: Start: 09-26-2021 End: 09-27-[address] JARETT Finney TERESE Facility: Start: 09-16-2021 End: 09-17-2021 ambulatory Jarett Finney TERESE [facility] Start: 09-09-2021 End: 09-10-2021 ambulatory Jarett GUDINO Facility:[facility] Start: 09-09-2021 End: 09-09-2021 Patient encounter procedure Jarett GUDINO [facility] Start: 09-09-2021 End: 09-09-2021 Well adult monitoring check done Jarett GUDINO [facility] Start: 05-24-2021 Office outpatient vi sit 25 minutes Jarett Gudino Work Phone: [facility] 250 DO Work Phone: Start: 03-11-2021 Patient encounter procedure Jarett Gudino Work Phone: [facility] 250 DO Work Phone: Start: 03-08-2021 Patient encounter procedure Jarett Gudino Work Phone: [facility] [address] [place] Work Phone: Start: 02-03-2021 Rx Renewal Jarett Finney Gran t Work Phone: [facility] [address] [place] Work Phone: Start: 12-26-2017 Patient encounter KO Post ility:[id number] Start: 02-20-2017 End: 02-21-2017 Ambulatory DEFAULT PHYSICIAN Facility:[facility] Procedures Date Procedure Procedure Detail Performing Clinician Start: 09-11-2024 Screening colonoscopy Cindy Leong MD Work Phone: Start: 08-06-2024 CT of lungs Jared melton MD Work Phone: Start: 08-01-2024 Ecg routine ecg w/le ast 12 lds w/i&r Ko Gamble MD Work Phone: Start: 06-14-2024 Plain chest X-ray Eva Leong MD Work Phone: Start: 01-04-2024 Ecg routine ecg w/le ast 12 lds w/i&r Ko Gamble MD Work Phone: Start: 08-07-2023 CT of chest without contrast MD Jared Leong Work Phone: Start: 09-04-[address] TEODORO GUDINO Comment on above: Performed By: #### [facility] #### [facility] [address] [place] [address] Dr. Nabil Che Catheter ablation of arrhythmogenic focus Jarett Gudino Work Phone: Cholecystectomy Jarett duncan Work Phone: Colonoscopy Jarett Gudino Work Phone: Plan of Treatment Date Care Activity Detail Author Start: 04-01-2025 End: 04-01-2025 Patient encounter procedure 04/01/2025 3:10 PM EST Office Visit [facility] [address] [place] [address] [address] [place] [id number] Ko Gamble MD [facility] [facility] [place] [address] [facility] Start: 12-22-2024 Influenza vaccination Influenz a Vaccine (Season Ended) [facility] Start: 09-11-2024 [facility] Start: 08-01-2024 End: 08-01-2024 Patient encounter procedure 08/01/2024 1:30 PM EDT Office Visit [address] [place] [id number] Ko Gamble MD [facility] [facility] [place] [address] [facility] Start: 06-17-2024 Patient referral [facility] Work Phone: Start: 01-04-2024 End: 01-03-2025 Basic metabolic 2000 panel - Serum or Plasma Basic Metabolic Panel Lab Routine Paroxysmal atrial fibrillation (Multi) High risk medication use Stage 3a chronic kidney disease (Multi) Expected: 01/04/2024 (Approximate), Expires: 01/03/2025 [facility] Service Area Work Phone: Comment on above: Expected: 01/04/2024 (Approximate), Expires: 01/03/2025 Start: 01-04-2024 End: 01-03-2025 CBC panel - Blood by Automated count CBC Lab Routine Paroxysmal atrial fibrillation (Multi) High risk medication use Expected: 01/04/2024 (Approximate), Expires: 01/03/2025 [facility] Work Phone: Comment on above: Expected: 01/04/2024 (Approximate), Expires: 01/03/2025 Start: 12-23-2023 COVID-19 Vaccine ( season) COVID-19 Vaccine ( season) [facility] Start: 12-23-2023 COVID-19 Vaccine ( season) COVID-19 Vaccine ( season) [facility] Start: 12-23-2023 Influenza vaccination Influenza Vacc ine (#1) [facility] Start: 06-19-2023 FUV, Provider: Ko Gamble, Status: Pen, Time: 10:40 AM FUV, Provider: Ko Gamble, Status: Pen, Time: 10:40 AM -[facility] 250 DO Work Phone: Start: 12-12-2022 FUV, Provider: Ko Gamble, Status: Pen, Time: 9:50 AM FUV, Provider: Ko Gamble, Status: Pen, Time: 9:50 AM [employer] 250 DO Work Phone: Start: 09-11-2022 ambulatory Ambulatory Facility:[facility] Start: 06-07-2022 FUV, Provider: Ko Gamble, Status: Pen, Time: 9:10 AM FUV, Provider: Ko Gamble, Status: Pen, Time: 9:10 AM -[facility] 250 DO Work Phone: Start: 12-06-2021 FUV, Provider: Ko Gamble, Status: Pen, Time: 9:10 AM FUV, Provider: Ko Gamble, Status: Pen, Time: 9:10 AM [facility] 250 DO Work Phone: Start: 2021 RSV High Risk: (Elde rly (60+) or Population) (1 - Risk 60-74 years 1-dose series) RSV High Risk: (Elderly (60+) or Population) (1 - Risk 60-74 years 1-dose series) [facility] Start: 2021 RSV patient s and/or patients aged 60+ years (1 - 1-dose 60+ series) RSV patients and/or patients aged 60+ years (1 - 1-dose 60+ series) [facility] Start: 05-24-2021 FUV, Provider: Ko Gamble, Status: Pen, Time: 3:00 PM FUV, Provider: Ko Gamble, Status: Pen, Time: 3:00 PM [facility] [place] Work Phone: Start: 03-11-2021 EVENT CARLITOS, Provider : YESSICA PETER LEGAL SUMMER INTERN 1,[id number], Status: Pen, Time: 10:30 AM EVENT CARLITOS, Provider: YESSICA PETER LEGAL SUMMER INTERN 1,[id number], Status: Pen, Time: 10:30 AM [facility] [place] Work Phone: Start: 07-05-2011 Zoster Vaccines (1 o f 2) Zoster Vaccines (1 of 2) [facility] Start: 04-23-2009 Pneumococcal vaccination Pneumococcal Vaccine (2 of 2 - PCV) [facility] Start: 04-23-2009 Pneumococcal Vaccine : Pediatrics (0 to 5 Years) and At-Risk Patients (6 to 64 Years) (2 of 2 - PCV) Pneumococcal Vaccine: Pediatrics (0 to 5 Years) and At-Risk Patients (6 to 64 Years) (2 of 2 - PCV) [facility] Start: 07-05-1983 DTaP/Tdap/Td Vaccine s (1 - Tdap) DTaP/Tdap/Td Vaccines (1 - Tdap) [facility] Start: 1980 Urine screening for protein CKD: Urine Protein Screening [facility] Start: 07-05-1979 Diabetes mellitus screening Diabetes Screening [facility] Start: 07-05-1979 Hepatitis C screening Hepatitis C [facility] Start: 1962 MMR Vaccines (1 of 1 - Standard series) MMR Vaccines (1 of 1 - Standard series) [facility] Start: 1961 HIV screening HIV Screening [facility] Start: 1961 Lipid panel Lipid Panel [facility] Start: 1961 Screening for malign ant neoplasm of colon [facility] Start: 1961 Yearly Adult Physical Yearly Adult P hysical [facility] CT Sinuses WO contrast [facility] CT Unspecified body region [facility] Patient Education [facility] Hemo rrhoids Discharge Instructions Know your Meds [facility] Colon Polypectomy Discharge Instructions [facility] Work Phone: Patient referral [facility] Work Phone: XR Chest 2 Views [facility] Immunizations Immunization Date Immunization Notes Care Provider Chris longo 01-21-2014 influenza virus vaccine, unspecified formulation Jarett Finney Terese Work Phone: [facility] DO Work Phone: 02-12-2013 influenza virus vaccine, unspecified formulation Jarett TERESE [facility] 04-23-2008 pneumococcal polysaccharide vaccine, 23 valzayra Arshad S [employer] Work Phone: [facility] 250 DO Work Phone: 04-23-2003 pneumococcal polysaccharide vaccine, 23 valent Jarett S [employer] [facility] Work Phone: influenza virus vaccine, unspecified formulation Jarett Finney [employer] Work Phone: [facility] 250 DO Work Phone: Comment on above: 2012 2011 2009 2008 NEGATED: Highlighted row has not occurred!05-20-2020 influenza virus vaccine, unspecified formulation Jarett GUDINO [facility] Payers Date Payer Category Payer Self-pay 2023 [employer] ( and others) [employer] [id number] 2023-Present [address] [place] [address] [id number] 2018 (LAUREN) [facility] [facility] [id number] 1960 Unknown [id number] 2.16.840.1.960173.3.579. 2.727 1961 Unknown [id number] 2.16.840.1.059735.3.579. 2.727 1961 Unknown [id number] 2.16.840.1.599769.3.579. 2.727 1961 Unknown [id number] 2.16.840.1.743370.3.579. 2.593 1961 Unknown [id number] 2.16.840.1.087089.3.579. 2.593 1961 Unknown [id number] 2.16.840.1.748204.3.579. 2.593 1961 Unknown [id number] 2.16.840.1.928953.3.579. 2.593 1961 Unknown [id number] 2.16.840.1.155259.3.579. 2.593 1961 Unknown [id number] 2.16.840.1.863833.3.579. 2.593 1961 Unknown [id number] 2.16.840.1.493952.3.579. 2.593 1961 Unknown [id number] 2.16.840.1.084999.3.579. 2.593 1961 Unknown [id number] 2.16.840.1.094318.3.579. 2.593 1961 Unknown [id number] 2.16.840.1.779934.3.579. 2.593 1961 Unknown [id number] 2.16.840.1.268788.3.579. 2.593 1961 Unknown [id number] 2.16.840.1.326820.3.579. 2.593 1961 Unknown [id number] 2.16.840.1.306389.3.579. 2.356 1961 Unknown [id number] 2.16.840.1.007116.3.579. 2.356 1961 Unknown [id number] 2.16.840.1.288971.3.579. 2.1244 1961 Unknown [id number] 2.16.840.1.321255.3.579. 2.1244 1959 [employer] ( and others) [id number] Unknown Unknown [id number] 2.16.840.1.783424.3.579. 2.531 Unknown [id number] 2.16.840.1.153134.3.579. 2.531 Unknown [id number] 2.16.840.1.567577.3.579. 2.531 Social History Date Type Detail Facility Start: 01-04-2024 End: 08-01-2024 Daily caffeine consumption Daily caffeine consumption [facility] 250 DO Work Phone: Comment on above: 1-2 mixed drinks a m onth; 1 ppd; 1-2 mixed drinks a w ak chin; 1 decaff coffee; Start: 09-09-2021 Tobacco smoking status Heavy t obacco smoker (finding) [facility] Tobacco smoking status Never [facility] Start: 01-04-2024 End: 08-01-2024 Sex Assigned At Male RuthYaakovGriggs [facility] [place] Start: 1960 Sex Assigned At Male F [facility] Start: 01-04-2024 End: 09-11-2024 Tobacco smoking status NHIS Smokes tobacco daily [facility] History of tobacco use Cigarette Smoker U [facility] Work Phone: Start: 01-04-2024 Tobacco use and exposure Smokeless tobacco non-user [facility] Work Phone: Start: 01-04-2024 End: 08-01-2024 Alcoholic beverage intake Current drinker of alcohol (finding) [facility] Work Phone: Start: 06-19-2023 Alcohol Comment occasionally [facility] Work Phone: Start: 1960 Sex assigned at Not on file U [facility] Work Phone: Start: 12-25-2023 End: 08-01-2024 Exposure to SARS-CoV-2 (event) Not sure [facility] Start: 08-14-2023 End: 09-11-2024 Tobacco smoking status NHIS Smoker (finding) [facility] Start: 08-07-2024 End: 09-11-2024 Sex Male (finding) [facility] Goals Date Patient Goal Desired Activity /State Clinical Notes 08-25-2021 to 11-05-2024 Note Date & Type Note Facility 11-05-2024 Evaluation note Diagnosis Onset Date Resolution Chronic maxillary sinusitis acute November 05, 2024 1:03pm Seasonal affective disorder in remission acute November 05, 2024 1:03pm [facility] Work Phone: 1(119) 609-691105-22-2025 History and physical [place] [id number] Gastroenterology H&P Signed Patient: Abhinav Felix MR#: [id number] : 1960 Acct:[id number] Age/Sex: 64 / M Adm Date: Loc: Room: Type: [facility] Attending Dr: Chas Dean MD Copies to: MD Jared Jaramillo MD~ Date of Service: 09/11/2024 HISTORY & PHYSICAL: Patient's history with special attention to the cardiovascular, pulmonary systems and the current problem was reviewed with the patient immediately prior to the procedure. Present medications and doses reviewed in the EMR. Allergies and pertinent laboratory tests were also re viewedat this time in the EMR. The physical [...] Dean MD Documented By: Chas Dean MD 09/11/2456 Signed By: 09/11/24 0856 [facility]05-22-[address] [address] Colonoscopy Procedure Report Signed Patient: Abhinav Felix MR#: [id number] : 1960 Acct:[id number] Age/Sex: 64 / M Adm Date: Loc: Room: Type: [facility] Attending Dr: Chas Dean MD Copies to: MD Jared Jaramillo MD~ Colonoscopy Date/Provider 09/11/2024 Chas Dean MD Narrative Procedure: Colonoscopy with polypectomy Indication: 64-year-old male presents for screening colonoscopy Pre-operative diagnosis: Screening Post-operative diagnosis: Colon polyps, hemorrhoids Sedation: propofol per anesthesia dept O2 oximetry, hemodynamic monitoring was performed pre, during, and post procedure. Patient was identified, H&P completed, patient was given full explanation of the procedure as well as associatedrisks and written consent wasobtained prior to procedure. Patient expressed complete understanding of the procedure as well as alternatives to the procedure and to anesthesia and agreed to proceed with the procedure as indicated. Patient was immediately reassessed prior to IV sedation. Under IV sedation, patient was placed in the left lateral decubitus position. Digital rectal exam was performed and normal. Colonoscope was inserted and passed proximally to the cecum, which was identified by the ileocecal valve, appendiceal orifice and cecal floor. Colonoscope was slowly withdrawnwith the findings as below. Polk bowel prep score was good. Findings: Cecum: Normal. Ascending colon: 3 mm polyp removed with cold snare, bottle 1. Hepatic flexure: Normal. Transverse colon: Normal. Splenic flexure: Normal. Descending colon: 4 mm and 6 mm polyps removed with cold snare, bottle 2. Sigmoid colon: Normal. Rectum: Normal. Retroflexed views: Demonstrated internal hemorrhoid. Biopsy taken: no Complications: None EBL: minimal Recommendations: -Repeat colonoscopy in 3 years -Follow up pathology -Restart Coumadin on 09/15/2024 -Follow up in the office as needed -Follow up with PCP Following a period of recovery, patient was seen and given full explanation of the procedure. Patient tolerated the procedure well and will be discharged in satisfactory, stable condition. 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, 2024 10:00am Lung nodule acute August 19, 2 025 2:18pm Tobacco use disorder acute Apri l 2024 2:18pm [facility] Work Phone: 1(378) 965-994704-25-2025 Evaluation note* Diagnosis Onset Date Resolution Status Admit Date Colon cancer screening acute Ap 2024 10:00am GERD without esophagitis acute August 15, 2024 10:00am Post-cholecystectomy syndrome acute August 15, 2024 10:00am 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, 2024 10:00am Lung nodule acute August 19, 2 025 2:18pm Tobacco use disorder acute Apri l 2024 2:18pm Chronic maxillary sinusitis acute November 05, 2024 1:03pm [facility] Work Phone: 1(525) 477-833904-16-2025 [facility]iology [facility] [place] [address] [place] [address] CT Scan Report Signed Patient: Abhinav Felix MR#: [id number] : 1960 Acct:[id number] Age/Sex: 64 / M ADM Date: 5 Loc: [facility] Room: Type: [facility] Attending Dr: Kelechi Martin MD Copies to: eKlechi Martin MD~ Ordering Provider: Kelechi Martin MD [...] Lockwood Jr., D.O.08/06/2024 12:58 PM Dictation Location: [facility]- Transcribed By: [facility] 08/06/24 1258 Dictated By: Yannick Lockwood Jr, DO 08/06/24 1255 Signed By: 08/06/24 1258 [facility]04-11-2025 History of Present illness Narrative * Ko Gamble MD - 08/01/2024 1:30 PM EDT Chief Complaint Patient presents with Follow-up Patient here for 6 month follow up, c/o occasional irregular heartbeat with dizziness and fatigue, will last approximately a day. Danielle Felix is a 64 y.o. male HPI [...] currently on pravastatin, recent lab data from [facility] were requested. Review of Systems Constitutional: Positive [...] by mouth. As directed as directed by [facility], Disp: , Rfl: Assessment/Plan 1. Paroxysmal [...] Scribe Attestation By signing my name below, INicolasa RN , Scribe attest that this documentation has been prepared under the direction and in the presence of Ko Gamble MD. Provider Attestation - Scribe documentation All medical record entries made by the Scribe were at my direction and personally dictated by me. Ihave reviewed the chart and agree that the record accurately reflects my personal performance of the history, physical exam, discussion and plan. documented in this [facility] Work Phone: 1(614) 355-488704-11-2025 Instructions* Patient Instructions* Nicolasa Bradshaw RN - [...] Provided instructions on exercise. documented in this [facility] Work Phone: 1(536) 459-760102-22-2025 Evaluation note* Diagnosis Onset Date Resolution Status Admit Date Dizziness acute June 14, 2024 9:03am Shortness of breath acute Febru [email or web address] 9:03am Viral URI with cough acute 2024 9:03am Colon cancer screening acute Fe bruary 2024 10:45am Post-cholecystectomy syndrome acute June 17, 2024 10:45am Shortness of breath acute Febru myra2024 10:45am Tobacco use disorder acute 2024 10:45am [facility] Work Phone: 1(941) 257-136609-13-2024 History of Present illness Narrative* Ko Gamble MD - 01/04/2024 12:50 PM EDT [...] by mouth. As directed as directed by [facility], Disp: , Rfl: Assessment/Plan 1. Paroxysmal atrial fibrillation (Multi) Follow Up In Cardiology 2. PVC (premature ventricular contraction) 3. TIA (transient ischemic attack) 4. Mixed hyperlipidemia 5. High risk medication use 6. Stage 3a chronic kidney disease (Multi) 7. BMI 30.0-30.9,adult 8. Current every day smoker Scribe Attestation By signing my name below, I, Ladonna WhiteSai Barcenas LPN attest that this documentation has been prepared under the direction and in the presence of Ko Gamble MD. Provider Attestation - Scribe documentation All medical record entries made by the Scribe were at my direction and personally dictated by me. Ihave reviewed the chart and agree that the record accurately reflects my personal performance of the history, physical exam, discussion and plan. [facility] Work Phone: 1(863) 706-376109-13-2024 Instructions* Patient Instructions* Ladonna Zendejas LPN - [...] through Care Everywhere. * Heart Healthy Diet (Citizen Of [place]) [facility] Work Phone: 1(761) 976-173010-24-2023 Evaluation note* Encounter Date Diagnosis Assessment Notes Treatment Notes Treatment Clinical Notes Jan, Lung nodule (ICD-10 - R91.1) Jan, Tobacco use disorder (ICD-10 - F17.200) [facility] Other 10-20-2023 Evaluation note* Encounter Date Diagnosis Assessment Notes Treatment Notes Treatment Clinical Notes Jan, Benign paroxysmal positional vertigo, unspecified laterality (ICD-10 - H81.10) Order printed for PT. Pt will call and set up appt. Jan, Mixed hyperlipidemia (ICD-10 - E78.2) Recheck labs. Pt had adverse side effects to crestor. [facility] Other 07-18-2023 Evaluation note* Encounter Date Diagnosis Assessment Notes Treatment Notes Treatment Clinical Notes Oct, Lung nodule (ICD-10 - R91.1) Oct, Nicotine dependence, cigarettes, uncomplicated (ICD-10 - F17.210) [facility] Other 05-15-2023 Evaluation note* Encounter Date Diagnosis [...] Dr. Finley - will set up with [facility] August, Nicotine dependence, cigarettes, uncomplicated (ICD-10 - F17.210) agrees to LDCT and chantix. discussed side effects of chantix. August, Screening for colon cancer (ICD-10 - Z12.11) agrees to cologuard August, GERD without esophagitis (ICD-10 - K21.9) requests refill of Aciphex. [facility] Other 05-05-2022 Hospital Discharge instructions Follow Up Care 08/25/2021 11:29:08 With:Jarett GUDINO DO, FAM Address: [address] [place] [address]- When:Within 1 Year(s) [facility] [place] Evaluation + Plan note Future Appointments Appointment Date:09/16/2021 04:00:00 PM Scheduled Provider: [facility] Brain () Appointment Date:09/11/2022 10:00:00 AM Scheduled Provider:Jarett GUDINO DO Location:[facility] Appointment Type: Open Future Scheduled Tests Laboratory* PSA Screen, Total 08/29/21 * CBC w/ Auto Diff 08/29/21 * Comprehensive Metabolic Panel 08/29/21 * Lipid Panel 08/29/21 Radiology* MRI Brain w/o Contrast 09/16/21 [facility] [place] Evaluation noteNo InformationN[employer] Other Evaluation noteNo assessment information available [facility] Work Phone: Evaluation note* Diagnosis Paroxysmal atrial fibrillation (Multi) Atrial fibrillation PVC (premature ventricular contraction) Other premature beats TIA (transient ischemic attack) Unspecified transient cerebral ischemia Mixed hyperlipidemia High risk medication use Stage 3a chronic kidney disease (Multi) BMI 30.0-30.9,adult Current every day smoker documented in this encounter [facility] Work Phone: Evaluation note* Diagnosis Obesity, Class I, BMI 30-34.9- Primary Paroxysmal atrial fibrillation (Multi) Atrial fibrillation High risk medication use High triglycerides Unspecified disorder of lipoid metabolism Palpitations Mixed hyperlipidemia PVC (premature ventricular contraction) Other premature beats BMI 30.0-30.9,adult Current every day smoker documented in this encounter [facility] Work Phone: History and physical note Author Chas Dean [facility] Note Date/Time September 11, 2024 9:50a m [facility] [address] [place] [address] Gastroenterology H&P Signed Patient: Abhinav Felix MR#: [id number] : 1960 Acct:[id number] Age/Sex: 64 / M Adm Date: 5 Loc: Room: Type: [facility] Attending Dr: Chas Dean MD Copies to: MD Jared Jaramillo MD~ Date of Service: 09/11/2024 HISTORY [...] Dean MD Documented By: Chas Dean MD 09/11/24 0856 Signed By: <Electronically signed by Chas Dena MD> 09/11/24 0856 [facility] Work Phone: History general Narrative - Reported* Type Description Date Medical History Afib Medical History IBS Medical History Protruding disc C4-C5 Surgical History Cholecystectomy 2005 Surgical History Ablation on heart Surgical History Colonoscopy - Dr. Estes 2006 [facility] Other Hospital course Narrative No data available for this section [facility] [place] Reason for referral (narrative)No reason for referral [facility] Work Phone: Reason for visit Narrative* Indication: [...] office., Diagnosis: PAF * Ordering Physician: Dr. Ko Gamble MD * Enrollment sent to: [employer] * Monitor number [id number] applied. * Holter monitor printed and placed on Dr. Higinio Tyson MD desk to dictate. -[facility] [employer] DO Work Phone: Summary Purpose Family History [...] Date/T osmin father Unknown Not Specified Unknown Relationship Condition Age at Onset Recorded Date/T osmin father Unknown mother Unknown Relationship Condition Age at Onset Recorded Date/T osmin Not Specified Adopted Unknown father Unknown mother [...] on magnesium oxide 400 mg daily * Ko Gamble MD, FACC * ABHINAV FELIX is [...] He has active lifestyle and is in snf at the present time. His examination is [...] follow renal function in 6 months. * Ko Gamble MD, [facility] * ABHINAV FELIX is being seen for [...] He has active lifestyle and is in snf at the present time. His examination is [...] follow renal function in 6 months. * Ko Gamble MD, [facility] * ABHINAV FELIX is being seen for a month follow-up of. * Patient is in the office for follow-up for the problems noted below. He retired last year and is trying to quit smoking but has not succeeded yet. He denies any palpitations since he started taking magnesium [id number]. He is on Multaq and his rhythm [...] Admit Date cough, chest congestion June 14 025 9:03am R06.02 June 14, 2024 9:26am Flu [...] LDCT August 19, 2024 2:1 8pm Screening May 22nd, 2025 7:07a m Screening September 11, 2024 8:56a [...] 2: 18pm Chronic maxillary sinusitis November 05 025 1:03pm Chief Complaint Admit Date sinus pressure November 05, 2024 1:03 pm Amb Documentation December 08, 2024 11 :24am ER F/U [facility], Eyes Crossed December 17 11:12am Reason for Visit Admit Date Chronic maxillary sinusitis November 05 025 1:03pm Seasonal affective disorder in remission November 05, 2024 1:03pm Reason for Referral Specialty Diagnoses / Procedures Referred By Aditya t Referred To Contact Diagnoses Paroxysmal atrial fibrillation (Multi) Procedures ECG 12 Lead Ko Gamble MD [address] [place] [address] 2, [address] [address] Referral ID Status Reason Start Date Expiration Date V isits Requested Visits Authorized [id number] Authorized 01/04/2024 01/03/2025 1 1 Specialty Diagnoses / Procedures Referred By Aditya t Referred To Contact Cardiology Diagnoses Paroxysmal atrial fibrillation (Multi) Procedures Follow Up In Cardiology Ko Gamble MD [address] [place] [address] 2, [address] [address] Ko Gamble MD [address] [place] [address] 2, [address] [address] Referral ID Status Reason Start Date Expiration Date V isits Requested Visits Authorized [id number] Authorized 01/04/2024 01/03/2025 1 1 Additional Source Comments (unrecognized sect ion and content) No Status Records FoundNo Status Records FoundNo Status Records FoundNo Status Records FoundNo Status Records FoundNo Status Records FoundNo Status Records FoundNo Status Records FoundNo Status Records Found INFORMATION SOURCE (unrecogn ized section and content) DATE CREATED AUTHOR 10/16/2017 [facility] DATE CREATED AUTHOR AUTHOR'S ORGANIZ ATION 01/30/2018 [facility] DATE CREATED AUTHOR AUTHOR'S ORGANIZ ATION 02/14/2019 [facility] DATE CREATED AUTHOR AUTHOR'S ORGANIZ ATION 07/31/2022 [facility] DATE CREATED AUTHOR AUTHOR'S ORGANIZ ATION 09/05/2022 [facility] DATE CREATED AUTHOR AUTHOR'S ORGANIZ ATION 12/13/2022 [facility] DATE CREATED AUTHOR AUTHOR'S ORGANIZ ATION 12/13/2022 [facility] DATE CREATED AUTHOR AUTHOR'S ORGANIZ ATION 08/07/2024 [facility] DATE CREATED AUTHOR AUTHOR'S ORGANIZ ATION 09/21/2024 [facility] Reason for Visit (unrecogniz ed section and content) Reason Comments Follow-up 6mo Specialty Diagnoses / Procedures Referred By Aditya stevens Referred To Contact Cardiology Diagnoses Paroxysmal atrial fibrillation (Multi) Procedures Follow Up In Cardiology Ko Gamble MD [address] [facility] 2, [address] [address] Ko Gamble MD [address] [place] [address] 2, [address] [address] Referral ID Status Reason Start Date Expiration Date V isits Requested Visits Authorized [id number] Authorized 06/19/2023 06/18/2024 1 1 Reason Comments Follow-up Patient here for 6 m [facility] follow up, c/o occasional irregular heartbeat with dizziness and fatigue, will last approximately a day. Specialty Diagnoses / Procedures Referred By Aditya stevens Referred To Contact Cardiology Diagnoses Paroxysmal atrial fibrillation (Multi) Procedures Follow Up In Cardiology Ko Gamble MD [facility] 2, [place] [address] [place] [id number] Phone: tel: fax: Ko Gamble MD [address] [facility] 2, [address] [place] [address] Phone: tel: fax: Referral ID Status Reason Start Date Expiration Date V isits Requested Visits Authorized [id number] Authorized 01/04/2024 01/03/2025 1 1 Care Teams (unrecognized sec tion and content) Team Status: Active Member Role Status Dates Jared Leong MD Primary Care Provider Active Team Status: Inactive Member Role Status Dates Jared Leong MD Primary Care Provider Active Start: August 15, 2024 End: August 15, 2024 Chas Dean MD Attending Provider Active S tart: August 15, 2024 End: August 15, 2024 Team Status: Inactive Member Role Status Dates Jared Leong MD Primary Care Provider Active Start: August 19, 2024 End: August 19, 2024 Kelechi Martin MD Attending Provider Active Start: August 19, 2024 End: August 19, 2024 Team Status: Inactive Member Role Status Dates Jared Leong MD Primary Care Provider Active Start: September 11, 2024 End: September 11, 2024 Chas Dean MD Attending Provider Active S tart: September 11, 2024 End: September 11, 2024 Team Status: Active Member Role Status Dates Jared Leong MD Primary Care Provider Active Start: September 11, 2024 Chas Dean MD Attending Provider Active S tart: September 11, 2024 Chas Dean MD Other Provider Active Start : September 11, 2024 Team Status: Inactive Member Role Status Dates Jared Leong MD Primary Care Provider Active Start: November 05, 2024 End: November 05, 2024 Jared Leong MD Attending Provider Active St art: November 05, 2024 End: November 05, 2024 Team Status: Active Member Role Status Dates Jared Leong MD Primary Care Provider Active Start: July 25, 2024 Ko Gamble MD Attending Provider Active St art: July 25, 2024 Team Status: Inactive Member Role Status Dates Jared Leong MD Primary Care Provider Active Start: August 06, 2024 End: August 06, 2024 Kelechi Martin MD Attending Provider Active Start: August 06, 2024 End: August 06, 2024 Team Status: Active Member Role Status Dates Jared Leong MD Primary Care Provider Active Start: September 11, 2024 Chas Dean MD Attending Provider, Other Provide r Active Start: September 11, 2024 Team Status: Inactive Member Role Status Dates Jared Leong MD Primary Care Provider Active Start: June 14, 2024 End: June 14, 2024 Sandi Collazo APRN Attending Provider Active S tart: June 14, 2024 End: June 14, 2024 Team Status: Inactive Member Role Status Dates Jared Leong MD Primary Care Provide r, Attending Provider Active Start: June 17, 2024 End: June 17, 2024 Team Status: Active Member Role Status Dates Jared Leong MD Primary Care Provide r, Attending Provider Active Start: June 12, 2023 Team Status: Active Member Role Status Dates Jared Leong MD Primary Care Provider Active Start: July 27, 2023 POONAM Reynolds Attending Provider Active Start : July 27, 2023 Team Status: Inactive Member Role Status Dates Jared Leong MD Primary Care Provider Active Start: August 07, 2023 End: August 07, 2023 Uche Porter MD Attending Provider Active Star t: August 07, 2023 End: August 07, 2023 C2 Tactical Analysis Technician Relationship Specialty Start Date End Date Jared Leong MD PCP - General Family Medicine 06/19/23 Ko Gamble MD [address] [place] [address] 2, [address] [address] Consulting Physician Cardiology 06/19/23 Team Status: Active Member Role Status Dates Jared Leong MD Primary Care Provider Active Start: December 05, 2024 Shon Rosario DO Attending Provider Active S tart: December 05, 2024 Team Status: Active Member Role Status Dates Jared Leong MD Primary Care Provider Active Start: December 08, 2024 America Gallegos CMA Attending Provider Active Start: December 08, 2024 Team Status: Inactive Member Role Status Dates Jared Leong MD Primary Care Provider Active Start: December 17, 2024 End: December 17, 2024 Jared Leong MD Attending Provider Active St art: December 17, 2024 End: December 17, 2024 Goals (unrecognized section and content) Goals [...] BE BASED ON THE PRIMARY CLINICAL RECORDS. [facility] [employer] provides no warranty or guarantee of the accuracy or completeness of information in this document.
[2024-12-24 13:48] LABS: INR 2.77; Prothrombin Time 26.5 sec (9.0-11.6)
== END 2024-12-24 10:27 | disposition home or self-care (01) ==
LOC: LAB 10:27
PROVIDERS: PCP Family Medicine; Visit Provider Family Medicine
DX: I48.0 Paroxysmal atrial fibrillation (principal)
CPT/HCPCS: 36415; 85610

== ENCOUNTER 2025-01-01 09:05 | Outpatient (OUT) | payer OTHER, SELFPAY ==
--- OUTSIDE RECORDS SUMMARY | 2025-01-01 09:06 | XMS_ITS | Encounter Summary ---
Author Organization [facility] Address [address] [place] [address] Phone Care Team Providers Care Art Dealer Name Role Phone Jeancarlos Solorzano DO Primary Care Provider + Regi Chapman MD Primary Care Provider [phone] Regi Chapman MD Primary Care Provider [phone] Ko Gamble MD Unavailable [phone] Encounter Details Date Type Department Care Team (Late st Contact Info) Description 11/22/2021 Orders Only [facility] [address] [place] [address] Conversion, Onbase Social History Tobacco Use Types Packs/Day Years Used Date Smoking Tobacco: Never Assessed Sex and Gender Information Value Date Recorded Sex Assigned at Not on file Legal Sex Male 9:57 AM EST Gender Identity Not on file Sexual Orientation Not on file documented as of this encounter Plan of Treatment Upcoming Encounters Date Type Department Care Team (Late st Contact Info) Description 04/01/2025 3:10 PM EST Office Visit [facility] 703 [facility] 250 [place] [address] Ko Gamble MD 703 [facility] [address], [address] [place] [address] Scheduled Orders Name Type Priority Associated Diagnoses Orde r Schedule OUTSIDE LAB SCAN Lab Ordered: 11/22/2021 documented as of this encounter Visit Diagnoses Not on filedocumented in this encounter Care Teams Art Dealer Relationship Specialty Start Date End Date Jeancarlos Solorzano DO [address] [facility] [place] [address] PCP - General 02/11/19 12/11/22 Regi Chapman MD [address] [place] [address] PCP - General 12/12/22 06/18/23 Regi Chapman MD [address] [place] [address] PCP - General Family Medicine 06/19/23 Ko Gamble MD [address] [place] [address] 2, [address] [address] Consulting Physician Cardiology 06/19/23 documented as of this encounter
--- OUTSIDE RECORDS SUMMARY | 2025-01-01 09:06 | XMS_ITS | Encounter Summary ---
Author Organization [facility] Address [address] [place] [address] Phone Care Team Providers Care Snow Technician Name Role Phone Jeancarlos Solorzano DO Primary Care Provider + Regi Chapman MD Primary Care Provider [phone] Regi Chapman MD Primary Care Provider [phone] Ko Gamble MD Unavailable Encounter Details Date Type Department Care Team (Late st Contact Info) Description 05/24/2022 Orders Only [facility] [address] [place] [address] Conversion, Onbase Social History Tobacco Use Types [...] Description 04/01/2025 3:10 PM EST Office Visit [facility] 703 [facility] 250 [place] [address] Ko Gamble MD 703 [facility] [address], [address] [place] [address] Scheduled Orders Name Type Priority Associated Diagnoses Orde r Schedule OUTSIDE LAB SCAN Lab Ordered: 05/24/2022 documented as of this encounter Visit Diagnoses Not on filedocumented in this encounter Care Teams Snow Technician Relationship Specialty Start Date End Date Jeancarlos Solorzano DO [address] [facility] [place] [place] [address] PCP - General 02/11/19 12/11/22 Regi Chapman MD [address] [place] [address] PCP - General 12/12/22 06/18/23 Regi Chapman MD [address] [place] [address] PCP - General Family Medicine 06/19/23 Ko Gamble MD [address] [place] [address] 2, [address] [address] Consulting Physician Cardiology 06/19/23 documented as of this encounter
--- OUTSIDE RECORDS SUMMARY | 2025-01-01 09:06 | XMS_ITS | Encounter Summary ---
Author Organization [facility] Address [address] [place] [address] Phone Care Team Providers Care Pediatric Critical Care Nurse Name Role Phone Regi Chapman MD Primary Care Provider [phone] Ko Gamble MD Unavailable [phone] Encounter Details Date Type Department Care Team (Late Contact Info) Description 06/14/2024 Scanned Document [facility] [address] [place] [phone] Scanning, Generic Provider Social History Tobacco Use Types Packs/Day Years Used Date Smoking Tobacco: Every Day Cigarettes Smokeless Tobacco: Never Alcohol Use Standard Drinks/Week Comments Yes 0 (1 standard drink = 0.6 oz pur e alcohol) occasionally Sex and Gender Information Value Date Recorded Sex Assigned at Not on file Legal Sex Male 9:57 AM EST Gender Identity Not on file Sexual Orientation Not on file documented as of this encounter Plan of Treatment Upcoming Encounters Date Type Department Care Team (Late Contact Info) Description 04/01/2025 3:10 PM EST Office Visit [facility] 703 [facility] 250 [place] [address] Ko Gamble MD 703 [facility] [address], [address] [place] [address] documented as of this encounter Procedures Procedure Name Priority Date/Time Associated Diagnosis Comments OUTSIDE IMAGING SCAN 06/14/2024 documented in this encounter Results * OUTSIDE IMAGING SCAN (06/14/2024) Anatomical Region Laterality Modality Other Narrative 06/14/2024 Ordered by an unspecified provider. us Generic Provider Scanning OUTSIDE SCAN Final Result documented in this encounter Visit Diagnoses Not on filedocumented in this encounter Additional Health Concerns Assessment Noted Time A fall risk assessment has been complete d for the patient 01/04/2024 12:51 PM EDT documented as of this encounter Care Teams Pediatric Critical Care Nurse Relationship Specialty Start Date End Date Regi Chapman MD PCP - General Family Medicine 06/19/23 Ko Gamble MD 703 [facility] 2, [place] [address] Consulting Physician Cardiology 06/19/23 documented as of this encounter
--- OUTSIDE RECORDS SUMMARY | 2025-01-01 09:06 | XMS_ITS | Clinical Summary ---
Author Organization [facility] Address [address] [place] [address] Care Team Providers Care Nuclear Auxiliary Operator Name Role Phone Unavailable Primary Care Provider Unavailabl e Social History Tobacco Use Types Packs/Day Years Used Date Smoking Tobacco: Never Assessed Sex and Gender Information Value Date Recorded Sex Assigned at Not on file Legal Sex Male 6:55 PM EDT Gender Identity Not on file Sexual Orientation Not on file Last Filed Vital Signs Vital Sign Reading Time Taken Comments Blood Pressure 111/67 04/17/2018 12:00 PM EST Pulse - - Temperature - - Respiratory Rate - - Oxygen Saturation - - Inhaled Oxygen Concentration - - Weight 107 kg (235 lb) 04/17/2018 12:00 PM EST Height 179.1 cm (5' 10.5 ) 04/17/2018 12:[address] Body Mass Index 33.24 04/17/2018 12:00 PM EST Plan of Treatment Not on file
--- OUTSIDE RECORDS SUMMARY | 2025-01-01 09:06 | XMS_ITS | Encounter Summary ---
Author Organization [facility] Address [address] [place] [address] Phone Care Team Providers Care Opinion Polls Survey Worker Name Role Phone Regi Chapman MD Primary Care Provider [phone] Ko Gamble MD Unavailable [phone] Encounter Details Date Type Department Care Team (Late Contact Info) Description 11/28/2023 Scanned Document [facility] [address] [place] [phone] Scanning, Generic Provider Social History Tobacco Use [...] Description 04/01/2025 3:10 PM EST Office Visit [facility] 703 [facility] 250 [place] [address] Ko Gamble MD 703 [facility] 2, [address] [place] [address] documented as of this encounter Visit Diagnoses Not on filedocumented in this encounter Care Teams Opinion Polls Survey Worker Relationship Specialty Start Date End Date Regi Chapman MD PCP - General Family Medicine 06/19/23 Ko Gamble MD 703 [facility] 2, [facility] [address] [place] [phone] Consulting Physician Cardiology 06/19/23 documented as of this encounter
--- OUTSIDE RECORDS SUMMARY | 2025-01-01 09:06 | XMS_ITS | Clinical Summary ---
Author Organization [facility] Address [address] [place] [address] Phone Care Team Providers Care Tobacco Drummer Name Role Phone Regi Chapman MD Primary Care Provider [phone] Ko Gamble MD Unavailable [phone] Allergies Active Allergy Reactions Criticality Noted Date Comments Rosuvastatin Myalgia 06/19/2023 Dabigatran Etexilate Bleeding 05/04/2023 Penicillins Unknown 05/04/2023 Medications RABEprazole (Aciphex) EC tablet Take 1 tablet (20 mg) by mouth once daily. 2 Active warfarin (Coumadin) 5 mg tablet Take 1 tablet (5 mg) by mouth. As directed as directed by [facility] Active pravastatin (Pravachol) 20 mg tabletIndications: High triglycerides Take 1 tablet (20 mg) by mouth once daily in the evening. 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 High triglycerides 04/09/2023 Palpitations 04/09/2023 Paroxysmal atrial fibrillation (Multi) 12/18/202 3 PVC (premature ventricular contraction) 04/09/20 Stage 3a chronic kidney disease (Multi) 04/09/20 TIA (transient ischemic attack) 04/09/2023 Vision changes 04/09/2023 Encounters Date Type Department Care Team Description 10/06/[address] [place] [phone] Ko Gamble MD Paroxysmal atrial fibrillation (Multi) from Last 3 Months Immunizations Immunization Administration Dates Next Due Influenza, Unspecified 02/12/2013 Pneumococcal polysaccharide vaccine, 23-valent, age 2 years and older (PNEUMOVAX 23) 04/23/2008,04/23/2003 Social History Tobacco Use Types Packs/Day Years Used Date Smoking Tobacco: Every Day Cigarettes Smokeless Tobacco: Never Tobacco Cessation:Ready to Q uit: No; Counseling Given: Yes Alcohol Use Standard Drinks/Week Comments Yes 0 (1 standard drink = 0.6 oz pur e alcohol) occasionally Sex and Gender Information Value Date Recorded Sex Assigned at Not on file Legal Sex Male 9:57 AM EST Gender Identity Not on file Sexual Orientation Not on file Last Filed Vital Signs Vital Sign Reading Time Taken Comments Blood Pressure 132/70 08/01/2024 1:19 PM EDT Pulse 58 08/01/2024 1:19 PM EDT Temperature - - Respiratory Rate - - Oxygen Saturation - - Inhaled Oxygen Concentration - - Weight 101 kg (221 lb 9.6 oz) 08/01/2024 1:19 PM EDT Height 180.3 cm (5' 11 ) 08/01/2024 1:19 PM EDT Body Mass Index 30.91 08/01/2024 1:19 PM EDT Plan of Treatment Upcoming Encounters Date Type Department Care Team (Late st Contact Info) Description 04/01/2025 3:10 PM EST Office Visit [facility] 703 [facility] [address] [place] [address] Ko Gamble MD 703 [facility] 2, [address] [place] [address] Health Maintenance Due Date Last Done Comments CT Colonography 1961 Colonoscopy 1961 Colorectal Cancer Screening 1961 FIT-DNA (Cologuard) 1961 FIT 1961 HIV Screening 1961 Lipid Panel 1961 Sigmoidoscopy 1961 MMR Vaccines (1 of 1 - Standard series) 1962 Diabetes Screening 07/05/1979 Hepatitis C Screening 07/05/1979 CKD: Urine Protein Screening 1980 DTaP/Tdap/Td Vaccines (1 - Tdap) 07/05/1983 Pneumococcal Vaccine (2 of 2 - PCV) 04/23/2009 04/23/2008, 04/23/2003 PSA Prostate Cancer Screening 07/05/2011 Zoster Vaccines (1 of 2) 07/05/2011 Yearly Adult Physical 09/06/2023 09/04/2022 COVID-19 Vaccine (1 - 2023-2 5 season) 2024 Influenza Vaccine (#1) 2024 4, 02/12/2013 RSV High Risk: (Elderly (60+ ) or Population) (1 - 1-dose 75+ series) 2036 HIB Vaccines Aged Out No longer eligi ble based on patient's age to complete this topic HPV Vaccines Aged Out No longer eligi ble based on patient's age to complete this topic Hepatitis A Vaccines Aged Out No long er eligible based on patient's age to complete this topic Hepatitis B Vaccines Aged Out No long er eligible based on patient's age to complete this topic IPV Vaccines Aged Out No longer eligi ble based on patient's age to complete this topic Meningococcal Vaccine Aged Out No mary ellen cedric eligible based on patient's age to complete this topic Rotavirus Vaccines Aged Out No longer eligible based on patient's age to complete this topic Insurance HUMANA HUMANA Care Teams Tobacco Drummer Relationship Specialty Start Date End Date Regi Chapman MD PCP - General Family Medicine 06/19/23 Ko Gamble MD 703 [facility] 2, [address] [place] [address] Consulting Physician Cardiology 06/19/23
--- OUTSIDE RECORDS SUMMARY | 2025-01-01 09:06 | XMS_ITS | Encounter Summary ---
Author Organization [facility] Address [address] [place] [address] Phone Care Team Providers Care Windows Vmware Administrator Name Role Phone Regi Chapman MD Primary Care Provider [phone] Ko Gamble MD Unavailable Encounter Details Date Type Department Care Team (Late Contact Info) Description 07/25/2024 Scanned Document [facility] [address] [place] [phone] Scanning, Generic Provider Social History Tobacco Use [...] Description 04/01/2025 3:10 PM EST Office Visit [facility] [address] [facility] 250 [place] [address] Ko Gamble MD 7[address] [facility] 2, [address] [place] [address] documented as of this encounter Procedures Procedure Name Priority Date/Time Associated Diagnosis Comments OUTSIDE LAB SCAN 07/25/2024 documented in this encounter Results * OUTSIDE LAB SCAN (07/25/2024) Narrative 07/25/2024 Ordered by an unspecified provider. us Generic Provider Scanning OUTSIDE SCAN Final Result documented in this encounter Visit Diagnoses Not on filedocumented in this encounter Additional Health Concerns Assessment Noted Time A fall risk assessment has been complete d for the patient 01/04/2024 12:51 PM EDT documented as of this encounter Care Teams Windows Vmware Administrator Relationship Specialty Start Date End Date Regi Chapman MD PCP - General Family Medicine 06/19/23 Ko Gamble MD [address]03 [facility] 2, [place] [address] Consulting Physician Cardiology 06/19/23 documented as of this encounter
--- OUTSIDE RECORDS SUMMARY | 2025-01-01 09:06 | XMS_ITS | Encounter Summary ---
Author Organization [facility] Address [address] [place] [address] Phone Care Team Providers Care Almond Blancher Operator Name Role Phone Regi Chapman MD Primary Care Provider Ko Gamble MD Unavailable [phone] Encounter Details Date Type Department Care Team (Late Contact Info) Description 09/20/2023 Scanned Document [facility] [address] [place] [address] Scanning, Generic Provider Social History Tobacco Use [...] Description 04/01/2025 3:10 PM EST Office Visit [facility] [address] [facility] 250 [place] [address] Ko Gamble MD 703 [facility] 2, [address] [place] [address] documented as of this encounter Visit Diagnoses Not on filedocumented in this encounter Care Teams Almond Blancher Operator Relationship Specialty Start Date End Date Regi Chapman MD PCP - General Family Medicine 06/19/23 Ko Gamble MD 703 [facility] 2, [facility] [address] [place] [phone] Consulting Physician Cardiology 06/19/23 documented as of this encounter
--- OUTSIDE RECORDS SUMMARY | 2025-01-01 09:06 | XMS_ITS | Encounter Summary ---
Author Organization [facility] Address [address] [place] [address] Phone Care Team Providers Care Operations Representative Name Role Phone Jeancarlos Solorazno DO Primary Care Provider + Regi Chapman MD Primary Care Provider [phone] Regi Chapman MD Primary Care Provider [phone] Ko Gamble MD Unavailable [phone] Encounter Details Date Type Department Care Team (Late st Contact Info) Description 03/30/2020 Orders Only [facility] [address] [place] [address] Conversion, Onbase Social History Tobacco Use Types [...] Description 04/01/2025 3:10 PM EST Office Visit [facility] 703 [facility] 250 [place] [address] Ko Gamble MD 703 [facility] 2, [address] [place] [address] Scheduled Orders Name Type Priority Associated Diagnoses Orde r Schedule OUTSIDE LAB SCAN Lab Ordered: 03/30/2020 documented as of this encounter Visit Diagnoses Not on filedocumented in this encounter Care Teams Operations Representative Relationship Specialty Start Date End Date Jeancarlos Solorzano DO [address] [facility] [address] PCP - General 02/11/19 12/11/22 Regi Chapman MD [address] [place] [address] PCP - General 12/12/22 06/18/23 Regi Chapman MD [address] [place] [address] PCP - General Family Medicine 06/19/23 Ko Gamble MD [address] [place] [address], [address] [address] Consulting Physician Cardiology 06/19/23 documented as of this encounter
--- OUTSIDE RECORDS SUMMARY | 2025-01-01 09:06 | XMS_ITS | Encounter Summary ---
Author Organization [facility] Address [address] [place] [address] Phone Care Team Providers Care Equipment Operating Engineer Name Role Phone Jeancarlos Solorzano DO Primary Care Provider + Regi Chapman MD Primary Care Provider [phone] Regi Chapman MD Primary Care Provider [phone] Ko Gamble MD Unavailable [phone] Encounter Details Date Type Department Care Team (Late st Contact Info) Description 08/22/2019 Orders Only [facility] [address] [place] [address] Conversion, Onbase Social History Tobacco Use Types [...] Description 04/01/2025 3:10 PM EST Office Visit [facility] 703 [facility] 250 [place] [address] Ko Gamble MD 703 [facility] 2, [address] [place] [address] Scheduled Orders Name Type Priority Associated Diagnoses Orde r Schedule OUTSIDE LAB SCAN Lab Ordered: 08/22/2019 OUTSIDE LAB SCAN Lab Ordered: 08/22/2019 documented as of this encounter Visit Diagnoses Not on filedocumented in this encounter Care Teams Equipment Operating Engineer Relationship Specialty Start Date End Date Jeancarlos Solorzano DO [address] [place] [address] PCP - General 02/11/19 12/11/22 Regi Chapman MD [address] [place] [address] PCP - General 12/12/22 06/18/23 Regi Chapman MD [address] [place] [address] PCP - General Family Medicine 06/19/23 Ko Gamble MD 3 [facility] 2, [address] [address] Consulting Physician Cardiology 06/19/23 documented as of this encounter
--- OUTSIDE RECORDS SUMMARY | 2025-01-01 09:06 | XMS_ITS | Encounter Summary ---
Author Organization [facility] Address [address] [place] [address] Phone Care Team Providers Care Pillow Filler Name Role Phone Jeancarlos Solorzano DO Primary Care Provider + Regi Chapman MD Primary Care Provider [phone] Regi Chapman MD Primary Care Provider [phone] Ko Gamble MD Unavailable [phone] Encounter Details Date Type Department Care Team (Late st Contact Info) Description 11/24/2020 Orders Only [facility] [address] [place] [address] Conversion, Onbase Social History Tobacco Use Types [...] Description 04/01/2025 3:10 PM EST Office Visit [facility] [address] [facility] [address] [place] [address] Ko Gamble MD [address] [facility] [address] [place] [address] Scheduled Orders Name Type Priority Associated Diagnoses Orde r Schedule OUTSIDE LAB SCAN Lab Ordered: 11/24/2020 documented as of this encounter Visit Diagnoses Not on filedocumented in this encounter Care Teams Pillow Filler Relationship Specialty Start Date End Date Jeancarlos Solorzano DO [address] [facility] [place] [address] PCP - General 02/11/19 12/11/22 Regi Chapman MD [address] [place] [id number] PCP - General 12/12/22 06/18/23 Regi Chapman MD [address] [place] [id number] PCP - General Family Medicine 06/19/23 Ko Gamble MD [address] [place] [address] [address], [address] [address] Consulting Physician Cardiology 06/19/23 documented as of this encounter
--- OUTSIDE RECORDS SUMMARY | 2025-01-01 09:06 | XMS_ITS | Clinical Summary ---
Author Organization [facility] Address [address] [place] [address] Care Team Providers Care Trial Court Justice Name Role Phone Unavailable Primary Care Provider Unavailabl e Social History Tobacco Use Types Packs/Day Years Used Date Smoking Tobacco: Never Assessed Sex and Gender Information Value Date Recorded Sex Assigned at Not on file Legal Sex Male 7:35 AM EST Gender Identity Not on file Sexual Orientation Not on file Plan of Treatment Health Maintenance Due Date Last Done Comments Anxiety Screening 07/05/1979 Depression Screening 07/05/1979 HIV Screening 07/05/1979 Hepatitis C Screening 07/05/1979 DTaP,Tdap,Td Vaccine (1 - Tdap) [address] Colonography 2006 Cologuard (FIT-DNA) 2006 Colonoscopy 2006 Colorectal Cancer Screening 2006 Diabetes Screening 2006 Fecal Occult Blood 2006 Prostate Cancer Screening Discussion 2006 Sigmoidoscopy 2006 Pneumococcal Vaccine: 50+ (1 of 1 - PCV) 07/05/2011 Shingrix Vaccine (1 of 2) 07/05/2011 Influenza Vaccine (#1) 2024 RSV Vaccine (1 - 1-dose 75+ series) 2036 Insurance [facility]
--- NOTE | 2025-01-01 09:09 | MR_ITS ---
The [address] [address] Patient Name: ABHINAV FELIX MRN: [id number] date: 1960 Sex: M Assigned Patient Location: MRI Current Patient Location: MRI Accession/Order Number: [id number] Exam Date: 01/01/2025 09:20 Report Date: 01/01/2025 15:13 At the request of: JARED LEONG MD Procedure: MR head/brain wo/w con MRI BRAIN WITHOUT AND WITH INTRAVENOUS CONTRAST CLINICAL DATA: Abnormal head CT, headache, diplopia COMPARISON: CT head 12/05/2024 FINDINGS: No restricted diffusion. Ventricles and sulci are normal in size and configuration for the patient's age. No shift midline structure. Basal cisterns are patent. Brain parenchyma unremarkable in signal intensity. Major intracranial arterial vascular flow voids are preserved. No abnormal GRE signal. No abnormal postcontrast enhancement. Mild paranasal sinus mucoperiosteal thickening. MR/MR head/brain wo/w con IMPRESSION: Essentially unremarkable MRI brain performed without and with contrast for the patient's age. Impression dictated by: Jaden Castro M.D. 01/01/2025 3:13 PM Dictation Location: [place] [address] Electronically authenticated by: [id number] Y Date: 01/01/2025 15:13
--- OUTSIDE RECORDS SUMMARY | 2025-01-01 09:14 | XMS_ITS | CCD ---
Author Organization [facility] Providers Care Physical Therapy Teacher Name Role Phone PHYSICIAN, DEFAULT Unavailable Unavailable [...] Jared Leong Unavailable Terese, Dr. Jarett Dhillon [facility] Simranvafranck Gamble, Dr. Ko Godoy Attending Simran vailable Dre, Dr. Ko Godoy Referring Simran vailable Terese, Dr. Jarett Dhillon [facility] Unavai labaidan Gamble, Dr. Ko Godoy Attending Simran vailable Gamble, Dr. Ko Godoy Referring Simran vailable MD Jared Leong Primary Care Provider [phone] MD Uche Porter Attending Provider aJred Leong MD Primary Care Provider Ko Gamble MD Unavailable Jared Leong MD Primary Care Provider Ko Gamble MD Unavailable KO GAMBLE Attending Unavailable KO GAMBLE Referring Unavailable JARED LEONG Primary Care Unavailable KO GAMBLE Attending Unavailable KO GAMBLE Referring Unavailable JARED LEONG Primary Care Unavailable Jared Leong MD Primary Care Provider [phone] Sandi Collazo APRN Attending Provider Kelechi Martin MD Attending Provider [phone] Jared Leong MD Primary Care Provider Chas [...] Attending Provider Kelechi Martin MD Attending Provider [phone] Chas Dean MD Other Provider Jraed Leong MD Attending Provider [phone] Jared Leong MD Primary Care Provider Shon Rosario DO Attending Provider [phone] America Gallegos CMA Attending Provider Unavaila ble Allergies Allergy Classification Reported Allergen(s) Allergy Type Date of Onset Reaction(s) Facility (19 sources) dabigatran etexilate; Translations: [Pradaxa CAPS] Drug Allergy 4 [facility] (18 sources) Penicillins; Translations: [Penicillins] Allergy to drug (finding) [address] Work Phone: (2 sources) dabigatran etexilate; Translations: [dabigatran] Drug Allergy Rectal hemorrhage (disorder), Bleeding from nose (finding), Incontinence (finding) [facility] (8 sources) Penicillin; Translations: [penicillin] Drug Allergy 7 anaphylaxis [facility] (7 sources) dabigatran etexilate; Translations: [DABIGATRAN ETEXILATE] Drug Allergy 4 bleeding [facility] (1 source) Penicillins Drug Allergy 4 Unknown [facility] Work Phone: (3 sources) rosuvastatin; Translations: [ROSUVASTATIN] Drug Allergy 4 Myalgia [facility] (1 source) Penicillins Drug Allergy 4 Unknown [facility] Work Phone: (1 source) Penicillins Drug allergy (disorder) 5 [facility] Repository (1 source) buPROPion Drug Allergy 5 Depression [facility] Comment on above: Took wellbutrin for smoking cessation and felt very bad w depressive symptoms. Medications Current Medications Medication Drug Class(es) Dates Sig (Normalized) Sig (Original) Aciphex 20 mg Tab-EC (1 source) Start: 05-21-2021 take 1 tablet by mouth once daily Aciphex 20 mg Tab-EC 20 mg = 1 tab(s), Oral, Daily, # 90 tab(s), Refills(s) 3, [facility]acy: [facility], 180.3, cm, 05/20/20 15:18:00 EST, [...] BID, # 60 EA, Refills(s) 5, Pharmacy: [facility] Start Date: 12/02/18 Status: Ordered [...] Drug Class(es) Dates Sig (Normalized) Sig (Original) [id number] 200 actuat albuterol 0.09 mg/actuat metered dose [...] take 2 capsules by mouth twice daily [place] 3 1000 MG Oral Capsule TAKE 2 [...] Quantity: 90 Refills: 3 Ordered: 12-Dec-2022 Ko Gamlbe MD Start : 12-Dec-2022 Active Sod Picosulf-Mag [...] sources) Taking high risk medication; Translations: [Other anvilsmith (current) drug therapy] Onset: 4 01-04-2024 Episodic [...] 3 01-04-2024 Chronic Unclassified (2 sources) Other anvilsmith (current) drug therapy / Z79.899(ICD-9) Onset: 8 Unclassified (3 sources) Patient encounter status 05-01-2019 Past or Other Problems Problem Classification Problem Date Documented Da te Episodic/Chronic Blindness and vision defects (8 sources) Eye / vision finding; Translations: [Unspecified visual disturbance] Onset: 04-09-2023 Resolved: 12-12-2022 04-09-2023 Episodic Other aftercare (3 sources) Other anvilsmith (current) drug therapy; Translations: [OTH INTERMEDIATE CURRENT DRUG THERAPY] Onset: 06-12-2022 Episodic Other lower respiratory disease (3 sources) Shortness of breath; Translations: [Shortness of breath] Onset: 06-14-2024 06-14-2024 Episodic Other nervous system disorders (8 sources) Vela's palsy; 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] Onset: 04-09-2023 04-09-2023 Episodic Unclassified (1 source) Other anvilsmith (current) drug therapy; Translations: [Other anvilsmith (current) drug therapy] Onset: 12-26-2017 Unclassified (2 sources) Onset: 01-04-2024 01-04-2024 Results Test Name Value Interpretation Reference Range Facil ity Basophils Auto (Bld) [#/Vol] Ordered By: Shon Rosario on 12-05-2024 Basophils (Bld) [#/Vol] 0.1 10 3/uL 0.0-0.1 [facility] Basophils/100 WBC Auto (Bld) Ordered By: Shon Rosario on 12-05-2024 Basophils/100 WBC (Bld) 0.8 % 0.2-2.0 [facility] Eosinophils/100 WBC Auto (Bl d)Ordered By: Shon Rosario on 12-05-2024 Eosinophils/100 WBC (Bld) 2.5 % 0.9-7.0 [facility] Erythrocyte distribution wid th Auto (RBC) [Ratio]Ordered By: Shon Rosario on 12-05-2024 Erythrocyte distribution width (RBC) [Ratio] 12.6 % 11.0-15.0 [facility] Glomerular filtration rate ( GFR) estimation in non- AmericanOrdered By: Shon Rosario on 12-05-2024 GFR/1.73 sq M.predicted among non-blacks MDRD (S/P/Bld) [Vol rate/Area] mL/min/{1.73_m2} >=60 mL/min/1.73m 2 [facility] Hematocrit Auto (Bld) [Volum e fraction]Ordered By: Shon Rosario on 12-05-2024 Hematocrit (Bld) [Volume fraction] 48.2 % 42.0-54.0 [facility] Hemoglobin [Mass/volume] in BloodOrdered By: Shon Rosario on 12-05-2024 Hemoglobin (Bld) [Mass/Vol] 16.7 g/dL 14.0-18.0 [facility] Laboratory - Chemistry and C hemistry - challengeOrdered By: Shon Rosario on 12-05-2024 Calcium [Mass/Vol] 8.4 mg/dL Low 8.5-10.1 [facility] Chloride [Moles/Vol] 103 mmol/L 98-107 [facility] CO2 [Moles/Vol] 26.9 mmol/L 21.0-32.[address] [facility] Creatinine [Mass/Vol] 0.98 mg/dL 0.70-1.30 [facility] GFR/1.73 sq M.predicted MDRD (S/P/Bld) [Vol rate/Area] mL/min/{1.73_m2} >=60 mL/min/1.73m 2 [facility] Glucose [Mass/Vol] 151 mg/dL High 74-106 [facility] Potassium [Moles/Vol] 4.1 mmol/L 3.5-5.1 [facility] Sodium [Moles/Vol] 139 mmol/L 136-145 [facility] Urea nitrogen [Mass/Vol] 11.0 mg/dL 7.0-18.0 [facility] Urea nitrogen/Creatinine [Mass ratio] 11.2 mg/mg [facility] Laboratory - Hematology and Cell countsOrdered By: Shon Rosario on 12-05-2024 Immature granulocytes/100 WBC (Bld) 0.4 % 0.0-0.5 [facility] Leukocytes [#/volume] correc traci for nucleated erythrocytes in Blood by Automated counOrdered By: Shon Rosario on 12-05-2024 WBC corrected for nucl RBC Auto (Bld) [#/Vol] 7.6 10 3/uL 4.0-11.0 [facility] Lymphocytes Auto (Bld) [#/Vo l]Ordered By: Shon Rosario on 12-05-2024 Lymphocytes (Bld) [#/Vol] 1.7 10 3/uL 1.2-3.8 [facility] Lymphocytes/100 WBC Auto (Bl d)Ordered By: Shon Rosario on 12-05-2024 Lymphocytes/100 WBC (Bld) 22.4 % 20.5-60.0 [facility] MCH Auto (RBC) [Entitic mass ]Ordered By: Shon Rosario on 12-05-2024 MCH (RBC) [Entitic mass] 31.0 pg 25.9-34.0 [facility] MCHC Auto (RBC) [Mass/Vol]Or dered By: Shon Rosario on 12-05-2024 MCHC (RBC) [Mass/Vol] 34.6 g/dL 29.9-35.2 [facility] MCV Auto (RBC) [Entitic vol] Ordered By: Shon Rosario on 12-05-2024 MCV (RBC) [Entitic vol] 89.4 fL 80.0-94.0 [facility] Monocytes Auto (Bld) [#/Vol] Ordered By: Shon Rosario on 12-05-2024 Monocytes (Bld) [#/Vol] 0.8 10 3/uL 0.3-0.8 [facility] Monocytes/100 WBC Auto (Bld) Ordered By: Shon Rosario on 12-05-2024 Monocytes/100 WBC (Bld) 10.3 % 1.7-12.0 [facility] Neutrophils Auto (Bld) [#/Vo l]Ordered By: Shon Rosario on 12-05-2024 Neutrophils (Bld) [#/Vol] 4.8 10 3/uL 1.4-6.5 [facility] Neutrophils/100 WBC Auto (Bl d)Ordered By: Shon Rosario on 12-05-2024 Neutrophils/100 WBC (Bld) 63.6 % 43.0-75.0 [facility] No Panel InformationOrdered By: Shon Rosario on 12-05-2024 Eosinophils # (Auto) 0.2 10 3/uL 0.0-0.7 [facility] Immature Granulocyte # (Auto) 0.03 10 3/uL 0.00-0.03 [facility] Platelet mean volume Auto (B ld) [Entitic vol]Ordered By: Shon Rosario on 12-05-2024 Platelet mean volume (Bld) [Entitic vol] 10.5 fL 9.5-13.5 [facility] Platelets Auto (Bld) [#/Vol] Ordered By: Shon Rosario on 12-05-2024 Platelets (Bld) [#/Vol] 188 10 3/uL 150-450 [facility] RBC Auto (Bld) [#/Vol]Ordere d By: Shon Rosario on 12-05-2024 RBC (Bld) [#/Vol] 5.39 10 6/uL 4.70-6.10 [facility] Serum or plasma anion gap de terminationOrdered By: Shon Rosario on 12-05-2024 Anion gap [Moles/Vol] 13.2 mmol/L [facility] Basophils Auto (Bld) [#/Vol] Ordered By: Chas Dean on 09-11-2024 Basophils (Bld) [#/Vol] Automated basophil count 0.0-0.2 [facility] Basophils/100 WBC Auto (Bld) Ordered By: Chas Dean on 09-11-2024 Basophils/100 WBC (Bld) Automated basophil % . [facility] Complete Blood Count Auto Di ffOrdered By: Chas Ditty on 09-11-2024 Basophils (Bld) [#/Vol] 0.1 10*3/uL 0.0-0.2 [facility] Comment on above: Result Comment: PERF ORMED BY: [place] [address] PATHOLOGIST [employer] OFFICER MARK AVITIA M.D. Performed By: #### C BC, PTT, PT #### [facility] [address] [place] [address] Basophils/100 WBC (Bld) 1.2 % . [facility] Comment on above: Performed By: #### C BC, PTT, PT #### [facility] [address] [place] [address] Eosinophils (Bld) [#/Vol] 0.2 10*3/uL 0.0-0.45 [facility] Comment on above: Performed By: #### C BC, PTT, PT #### [facility] [address] [place] [address] [place] Eosinophils/100 WBC (Bld) 2.0 % . [facility] Comment on above: Performed By: #### C BC, PTT, PT #### [facility] [address] [place] [address] Erythrocyte distribution width (RBC) [Ratio] 14.0 % 12.0-14.8 [facility] Comment on above: Performed By: #### C BC, PTT, PT #### [facility] [address] [place] [address] Hematocrit (Bld) [Volume fraction] 47.8 % 38.8-50.0 [facility] Comment on above: Performed By: #### C BC, PTT, PT #### [facility] [address] [place] [address] Hemoglobin (Bld) [Mass/Vol] 16.8 g/dL 13.0-17.0 [facility] Comment on above: Performed By: #### C BC, PTT, PT #### [facility] [address] [id number] [place] Lymphocytes (Bld) [#/Vol] 2.1 10*3/uL 1.00-4.8 [facility] Comment on above: Performed By: #### C BC, PTT, PT #### [facility] [address] [place] [id number] [place] Lymphocytes/100 WBC (Bld) 20.5 % . [facility] Comment on above: Performed By: #### C BC, PTT, PT #### [facility] [address] [place] [address] [place] MCH (RBC) [Entitic mass] 31.5 pg 27.5-35.2 [facility] Comment on above: Performed By: #### C BC, PTT, PT #### [facility] [address] [place] [address] [place] MCV (RBC) [Entitic vol] 89.6 fL 83.5-101 [facility] Comment on above: Performed By: #### C BC, PTT, PT #### [facility] [address] [place] [address] [place] Monocytes (Bld) [#/Vol] 1.3 10*3/uL High 0.0-0.8 [facility] Comment on above: Performed By: #### C BC, PTT, PT #### [facility] [address] [place] [id number] [place] Monocytes/100 WBC (Bld) 12.7 % . [facility] Comment on above: Performed By: #### C BC, PTT, PT #### [facility] [address] [place] [phone] [place] Neutrophils (Bld) [#/Vol] 6.5 10*3/uL 1.8-7.7 [facility] Comment on above: Performed By: #### C BC, PTT, PT #### [facility] [address] [place] [phone] [place] Neutrophils/100 WBC (Bld) 63.6 % . [facility] Comment on above: Performed By: #### C BC, PTT, PT #### [address] Platelet mean volume (Bld) [Entitic vol] 8.8 fL 6.6-10.1 [facility] Comment on above: Performed By: #### C BC, PTT, PT #### [address] Platelets (Bld) [#/Vol] 180 10*3/uL 150-450 [facility] Comment on above: Performed By: #### C BC, PTT, PT #### [address] RBC (Bld) [#/Vol] 5.33 10*6/uL 3.90-5.60 [facility] Comment on above: Performed By: #### C BC, PTT, PT #### [address] WBC (Bld) [#/Vol] 10.2 10*3/uL 4.1-10.5 [facility] Comment on above: Performed By: #### C BC, PTT, PT #### [address] Complete Blood Count Auto Di ffon 09-11-2024 Mean Corpuscular HGB Conc 35.1 g/dL Normal 32.5-35.6 [facility] Comment on above: Performed By: #### C BC, PTT, PT #### [address] NRBC% 0.1 /100{WBC} Normal 0-0.5 [facility] Comment on above: Performed By: #### C BC, PTT, PT #### [address] Eosinophils Auto (Bld) [#/Vo l]Ordered By: Chas Dean on 09-11-2024 Eosinophils (Bld) [#/Vol] Automated eosinophil count 0.0-0.45 [facility] Eosinophils/100 WBC Auto (Bl d)Ordered By: Chas Dean on 09-11-2024 Eosinophils/100 WBC (Bld) Automated eosinophil % . [facility] Erythrocyte distribution wid th Auto (RBC) [Ratio]Ordered By: Chas Dean on 09-11-2024 Erythrocyte distribution width (RBC) [Ratio] Erythrocyte distribution width [Ratio] by Automated count 12.0-14.8 [facility] Hematocrit Auto (Bld) [Volum e fraction]Ordered By: Chas Dean on 09-11-2024 Hematocrit (Bld) [Volume fraction] Hematocrit [Volume Fraction] of Blood by Automated count 38.8-50.0 [facility] Hemoglobin [Mass/volume] in BloodOrdered By: Chas Daen on 09-11-2024 Hemoglobin (Bld) [Mass/Vol] Hemoglobin [Mass/volume] in Blood 13.0-17.0 [facility] INR in Platelet poor plasma by Coagulation assayOrdered By: Chas Dean on 09-11-2024 INR Coag (PPP) [Relative time] INR in Platelet poor plasma by Coagulation assay [facility] Comment on above: INR Therapeutic Rang e [...] erythrocytes in Blood by Automated coun 4.1-10.5 [facility] WBC corrected for nucl RBC Auto (Bld) [#/Vol] 10.2 10*3/uL 4.1-10.5 [facility] Lymphocytes Auto (Bld) [#/Vo l]Ordered By: Chas Dean on 09-11-2024 Lymphocytes (Bld) [#/Vol] Lymphocytes [#/volume] in Blood by Automated count 1.00-4.8 [facility] Lymphocytes/100 WBC Auto (Bl d)Ordered By: Chas Dean on 09-11-2024 Lymphocytes/100 WBC (Bld) Lymphocytes/100 leukocytes in Blood by Automated count . [facility] MCH Auto (RBC) [Entitic mass ]Ordered By: Chas Dean on 09-11-2024 MCH (RBC) [Entitic mass] MCH [Entitic mass] by Automated count 27.5-35.2 [facility] MCHC Auto (RBC) [Mass/Vol]Or dered By: Chas Dean on 09-11-2024 MCHC (RBC) [Mass/Vol] MCHC [Mass/volume] by Automated count 32.5-35.6 [facility] MCHC (RBC) [Mass/Vol] 35.1 g/dL 32.5-35.6 [facility] MCV Auto (RBC) [Entitic vol] Ordered By: Chas Dean on 09-11-2024 MCV (RBC) [Entitic vol] MCV [Entitic volume] by Automated count 83.5-101 [facility] Monocytes Auto (Bld) [#/Vol] Ordered By: Chas Dean on 09-11-2024 Monocytes (Bld) [#/Vol] Automated blood monocyte count High 0.0-0.8 [facility] Monocytes/100 WBC Auto (Bld) Ordered By: Chas Dean on 09-11-2024 Monocytes/100 WBC (Bld) Automated monocyte % . [facility] Neutrophils Auto (Bld) [#/Vo l]Ordered By: Chas Dean on 09-11-2024 Neutrophils (Bld) [#/Vol] Neutrophils [#/volume] in Blood by Automated count 1.8-7.7 [facility] Neutrophils/100 WBC Auto (Bl d)Ordered By: Chas Dean on 09-11-2024 Neutrophils/100 WBC (Bld) Automated neutrophil % . [facility] No Panel InformationOrdered By: Chas Dean on 09-11-2024 Miscellaneous Pathology Test See comment [facility] Comment on above: See report. Scanned copy available in EMR. Nucleated erythrocytes [Pres ence] in Blood by Automated countOrdered By: Chas Dean on 09-11-2024 Nucleated RBC Auto Ql (Bld) Nucleated erythrocytes [Presence] in Blood by Automated count 0-0.5 [facility] Nucleated RBC Auto Ql (Bld) 0.1 /100{WBC} 0-0.5 [facility] Partial Thromboplastin Timeo n 09-11-2024 aPTT Coag (Bld) [Time] 34.6 s Normal 25.1-36.5 [facility] Comment on above: Result Comment: A he matocrit value greater than 55% may lead to inaccurate results in coagulation testing. Patients having hematocrit values >55% require a special collection tube for coagulation studies. Please contact the laboratory at [phone] for redraw instructions. PERFORMED BY: [place] [address] PATHOLOGIST [employer] OFFICER MARK AVITIA M.D. Performed By: #### C BC, PTT, PT #### [address] Pathology Request for Lab Co rpon 09-11-2024 Pathology Request for Lab Farooq Normal [facility] Comment on above: Order Comment: GI SP ECIMEN Result Comment: See report. Scanned copy available in EMR. PERFORMED BY: [place] [address] PATHOLOGIST [employer] OFFICER CAT ARAGON M.D. Performed By: #### P ATH TO [facility] #### [address] Platelet mean volume Auto (B ld) [Entitic vol]Ordered By: Chas Dean on 09-11-2024 Platelet mean volume (Bld) [Entitic vol] Platelet mean volume [Entitic volume] in Blood by Automated count 6.6-10.1 [facility] Platelets Auto (Bld) [#/Vol] Ordered By: Chas Dean on 09-11-2024 Platelets (Bld) [#/Vol] Platelets [#/volume] in Blood by Automated count 150-450 [facility] Prothrombin Time INROrdered By: Chas Dean on 09-11-2024 INR Coag (PPP) [Relative time] 1.1 {INR} [facility] Comment on above: Result Comment: INR Therapeutic [...] By: #### C BC, PTT, PT #### [facility] [address] INR Therapeutic Rang e A) Pre- [...] Coag (PPP) [Time] 13.0 s High 9.0-12.9 [facility] Comment on above: Result Comment: A he matocrit value greater than 55% may lead to inaccurate results in coagulation testing. Patients having hematocrit values >55% require a special collection tube for coagulation studies. Please contact the laboratory at [phone] for redraw instructions. Performed By: #### C BC, PTT, PT #### [facility] [address] [place] [address] A hematocrit value g reater than 55% may lead to inaccurate results in coagulation testing. Patients having hematocrit values >55% require a special collection tube for coagulation studies. Please contact the laboratory at [phone] for redraw instructions. Prothrombin time (PT)Ordered By: Chas Dean on 09-11-2024 PT Coag (PPP) [Time] Prothrombin time (PT) High 9.0- 12.9 [facility] Comment on above: A hematocrit value g reater than 55% may lead to inaccurate results in coagulation testing. Patients having hematocrit values >55% require a special collection tube for coagulation studies. Please contact the laboratory at [phone] for redraw instructions. RBC Auto (Bld) [#/Vol]Ordere d By: Chas Dean on 09-11-2024 RBC (Bld) [#/Vol] Erythrocytes [#/volu me] in Blood by Automated count 3.90-5.60 [facility] WBC Auto (Bld) [#/Vol]Ordere d By: Chas Dean on 09-11-2024 WBC (Bld) [#/Vol] Leukocytes [#/volume ] in Blood by Automated count 4.1-10.5 [facility] aPTT in Platelet poor plasma by Coagulation assayOrdered By: Chas Dean on 09-11-2024 aPTT Coag (PPP) [Time] Activated partial thromboplastin time (aPTT) in platelet poor plasma by coagulation a 25.1-36.5 [facility] Comment on above: A hematocrit value g reater than 55% may lead to inaccurate results in coagulation testing. Patients having hematocrit values >55% require a special collection tube for coagulation studies. Please contact the laboratory at [phone] for redraw instructions. aPTT Coag (PPP) [Time] 34.6 s 25.1-36.5 [facility] Comment on above: A hematocrit value g reater than 55% may lead to inaccurate results in coagulation testing. Patients having hematocrit values >55% require a special collection tube for coagulation studies. Please contact the laboratory at [phone] lung screeningon 08-07-19 CT lung screening [facility] [place] [address] CT Scan Report Signed Patient: Abhinav Felix MR#: [id number] : 1960 Acct:[id number] Age/Sex: 64 / M ADM Date: 08/06/24 Loc: [facility] Room: Type: [facility] Attending Dr: Kelechi Martin MD Copies to: [...] Lockwood Jr., D.O.08/06/2024 12:58 PM Dictation Location: [place] [address] Transcribed By: [facility] 08/06/24 1258 Dictated By: Yannick Lockwood Jr, DO 08/06/24 1255 Signed By: 08/06/24 1258 Normal [facility] ECG 12 Leadon 08-01-2024 ECG revealed normal sinus rhythm with sinus bradycardia, left axis deviation, voltage criteria for LVH, diffuse nonspecific ST and T changes, abnormal ECG [facility] Work Phone: Basophils Auto (Bld) [#/Vol] on 07-25-2024 Basophils (Bld) [#/Vol] Automated basophil count 0.0-0.1 [facility] Basophils/100 WBC Auto (Bld) on 07-25-2024 Basophils/100 WBC (Bld) Automated basophil % 0.2-2.0 [facility] Eosinophils/100 WBC Auto (Bl d)on 07-25-2024 Eosinophils/100 WBC (Bld) Automated eosinophil % 0.9-7.0 [facility] Erythrocyte distribution wid th Auto (RBC) [Ratio]on 07-25-2024 Erythrocyte distribution width (RBC) [Ratio] Erythrocyte distribution width [Ratio] by Automated count 11.0-15.0 [facility] Estimated glomerular filtrat ion rate (GFR) non- Americanon 07-25-2024 GFR/1.73 sq M.predicted among non-blacks MDRD (S/P/Bld) [Vol rate/Area] Estimated glomerular filtration rate (GFR) non- >=60 mL/min/1.73m 2 [facility] Hematocrit Auto (Bld) [Volum e fraction]on 07-25-2024 Hematocrit (Bld) [Volume fraction] Hematocrit [Volume Fraction] of Blood by Automated count 42.0-54.0 [facility] Hemoglobin [Mass/volume] in Bloodon 07-25-2024 Hemoglobin (Bld) [Mass/Vol] Hemoglobin [Mass/volume] in Blood 14.0-18.0 [facility] INR in Platelet poor plasma by Coagulation assayon 07-25-2024 INR Coag (PPP) [Relative time] INR in Platelet poor plasma by Coagulation assay [facility] Comment on above: DESIRED INR:2.0-3.0 CONDITIONS NOT LISTED BELOW2.5-3.5 FOR PROSTHETIC HEART VALVE REPLACEMENT2.5-3.5 RECURRENT THROMBOSIS Laboratory - Chemistry and C hemistry - challengeon 07-25-2024 Calcium [Mass/Vol] 8.9 mg/dL 8.5-10.1 [facility] Chloride [Moles/Vol] 105 mmol/L 98-107 [facility] CO2 [Moles/Vol] 29.2 mmol/L 21.0-32.[address] [facility] Creatinine [Mass/Vol] 1.05 mg/dL 0.70-1.30 [facility] GFR/1.73 sq M.predicted MDRD (S/P/Bld) [Vol rate/Area] mL/min/{1.73_m2} >=60 mL/min/1.73m 2 [facility] Glucose [Mass/Vol] 97 mg/dL 74-106 [facility] Potassium [Moles/Vol] 4.8 mmol/L 3.5-5.1 [facility] Sodium [Moles/Vol] 137 mmol/L 136-145 [facility] Urea nitrogen [Mass/Vol] 11.0 mg/dL 7.0-18.0 [facility] Urea nitrogen/Creatinine [Mass ratio] 10.5 mg/mg [facility] Laboratory - Hematology and Cell countson 07-25-2024 Immature granulocytes/100 WBC (Bld) 0.4 % 0.0-0.5 [facility] Leukocytes [#/volume] correc traci for nucleated erythrocytes in Blood by Automated counon 07-25-2024 WBC corrected for nucl RBC Auto (Bld) [#/Vol] Leukocytes [#/volume] corrected for nucleated erythrocytes in Blood by Automated coun 4.0-11.0 [facility] Lymphocytes Auto (Bld) [#/Vo l]on 07-25-2024 Lymphocytes (Bld) [#/Vol] Lymphocytes [#/volume] in Blood by Automated count 1.2-3.8 [facility] Lymphocytes/100 WBC Auto (Bl d)on 07-25-2024 Lymphocytes/100 WBC (Bld) Lymphocytes/100 leukocytes in Blood by Automated count 20.5-60.0 [facility] MCH Auto (RBC) [Entitic mass ]on 07-25-2024 MCH (RBC) [Entitic mass] MCH [Entitic mass] by Automated count 25.9-34.0 [facility] MCHC Auto (RBC) [Mass/Vol]on 07-25-2024 MCHC (RBC) [Mass/Vol] MCHC [Mass/volume] by Automated count 29.9-35.2 [facility] MCV Auto (RBC) [Entitic vol] on 07-25-2024 MCV (RBC) [Entitic vol] MCV [Entitic volume] by Automated count 80.0-94.0 [facility] Monocytes Auto (Bld) [#/Vol] on 07-25-2024 Monocytes (Bld) [#/Vol] Automated blood monocyte count High 0.3-0.8 [facility] Monocytes/100 WBC Auto (Bld) on 07-25-2024 Monocytes/100 WBC (Bld) Automated monocyte % High 1.7-12.0 [facility] Neutrophils Auto (Bld) [#/Vo l]on 07-25-2024 Neutrophils (Bld) [#/Vol] Neutrophils [#/volume] in Blood by Automated count 1.4-6.5 [facility] Neutrophils/100 WBC Auto (Bl d)on 07-25-2024 Neutrophils/100 WBC (Bld) Automated neutrophil % 43.0-75.0 [facility] No Panel Informationon 07-25 Eosinophils # (Auto) 0.2 10 3/uL 0.0-0.7 [facility] Immature Granulocyte # (Auto) 0.03 10 3/uL 0.00-0.03 [facility] Platelet mean volume Auto (B ld) [Entitic vol]on 07-25-2024 Platelet mean volume (Bld) [Entitic vol] Platelet mean volume [Entitic volume] in Blood by Automated count 9.5-13.5 [facility] Platelets Auto (Bld) [#/Vol] on 07-25-2024 Platelets (Bld) [#/Vol] Platelets [#/volume] in Blood by Automated count 150-450 [facility] Prothrombin time (PT)on PT Coag (PPP) [Time] Prothrombin time (PT) High 9.0- 11.6 [facility] RBC Auto (Bld) [#/Vol]on RBC (Bld) [#/Vol] Erythrocytes [#/volu me] in Blood by Automated count 4.70-6.10 [facility] Serum or plasma anion gap de terminationon 07-25-2024 Anion gap [Moles/Vol] Serum or plasma an ion gap determination [facility] XR chest 2V*on 06-14-2024 XR chest 2V* [place] [id number] XRay Report Signed Patient: Abhinav Felix MR#: [id number] : 1960 Acct:[id number] Age/Sex: 63 / M ADM Date: 06/14/24 [...] Jaden Castro M.D.06/14/2024 9:47 AM Dictation Location: [facility]-- Transcribed By: KIANA 06/14/24946 Dictated By: Jaden Castro MD 06/14/2446 Signed By: 06/14/24946 Normal [facility] ECG 12 Leadon 01-04-2024 ECG revealed sinus rhythm with PACs and left axis deviation consistent with left anterior fascicular block [facility] Work Phone: Cholesterol in LDL Calc [Mas s/Vol]on 06-12-2023 Cholesterol in LDL [Mass/Vol] 54.0 mg/dL [facility] Comment on above: <100 mg/dl [id number] 0-129 mg/dl NEAR OR ABOVE [id number] mg/dl BORDERLINE [id number] mg/dl HIGH>190 mg/dl VERY HIGH Cholesterol in VLDL Calc [Ma ss/Vol]on 06-12-2023 Cholesterol in VLDL [Mass/Vol] 48.0 mg/dL [facility] Estimated glomerular filtrat ion rate (GFR) non- Americanon 06-12-2023 GFR/1.73 sq M.predicted among non-blacks MDRD (S/P/Bld) [Vol rate/Area] mL/min/{1.73_m2} >=60 [facility] Globulin Calc (S) [Mass/Vol] on 06-12-2023 Globulin (S) [Mass/Vol] 4.4 g/dL [facility] Laboratory - Chemistry and C hemistry - challengeon 06-12-2023 Albumin [Mass/Vol] 3.3 g/dL 3.4-5.0 [facility] ALP [Catalytic activity/Vol] 93 U/L 46-116 [facility] ALT [Catalytic activity/Vol] 28 U/L 16-63 [facility] AST [Catalytic activity/Vol] 18 U/L 15-37 [facility] Bilirubin [Mass/Vol] 0.6 mg/dL 0.2-1.0 [facility] Calcium [Mass/Vol] 8.6 mg/dL 8.5-10.1 [facility] Chloride [Moles/Vol] 103 mmol/L 98-107 [facility] Cholesterol [Mass/Vol] 135 mg/dL <=200 [facility] Cholesterol in HDL [Mass/Vol] 33 mg/dL 40-60 [facility] Comment on above: > or =60 mg/dl - LOW CARDIOVASCULAR RISK<40 mg/dl - HIGH CARDIOVASCULAR RISK CO2 [Moles/Vol] 28.4 mmol/L 21.0-32.[address] [facility] Creatinine [Mass/Vol] 0.93 mg/dL 0.70-1.30 [facility] GFR/1.73 sq M.predicted MDRD (S/P/Bld) [Vol rate/Area] mL/min/{1.73_m2} >=60 [facility] Glucose [Mass/Vol] 85 mg/dL 74-106 [facility] Potassium [Moles/Vol] 4.3 mmol/L 3.5-5.1 [facility] Protein [Mass/Vol] 7.7 g/dL 6.4-8.2 [facility] Sodium [Moles/Vol] 140 mmol/L 136-145 [facility] Triglyceride [Mass/Vol] 240 mg/dL <=150 [facility] Urea nitrogen [Mass/Vol] 11.0 mg/dL 7.0-18.0 [facility] Urea nitrogen/Creatinine [Mass ratio] 11.8 mg/mg [facility] Serum or plasma albumin/glob ulin mass ratioon 06-12-2023 Albumin/Globulin [Mass ratio] 0.8 {ratio} [facility] Serum or plasma anion gap de terminationon 06-12-2023 Anion gap [Moles/Vol] 12.9 mmol/L [facility] Serum or plasma total choles terol/high density lipoprotein (HDL) cholesterol mass juan miguel 06-12-2023 Cholesterol.total/Cho lesterol in HDL [Mass ratio] 4.1 {ratio} [facility] Comment on above: 3.3 - 4.4 LOW [...] Weight Tips; Status:Complete - Retrospective Authorization; Done: [id number] Some eating tips that can help you lose weight.; Status:Complete - Retrospective Authorization; Done: [id number] Paroxysmal atrial fibrillation Renew: Multaq 400 MG Oral Tablet; TAKE 1 TABLET TWICE DAILY, WITH MORNING AND EVENING MEAL IO EKG Electrocardiogram- 12 Lead; Status:Complete; Done: [id number] Renew: Nebivolol HCl - 10 MG Oral [...] we can help. You may also call [phone] for free resources and assistance.; Status:Complete - Retrospective Authorization; Done: [id number] Tobacco Use Screening; Status:Complete; Done: [id number] Patient Instructions Please bring all medicines, vitamins, [...] Vital Signs (more content not included)... Normal [employer] Tobacco Screening.on 023 Fall risk assessment b) One or more fall s in the last year [facility] [employer] DO Work Phone: Tobacco use status [facility] a) Yes [facility] [employer] DO Work Phone: Tobacco Screening. Yes [facility] [employer] DO Work Phone: CBC AUTO DIFFon 09-04-2022 BASO # 0.1 103/ul Normal 0.0-0.1 [facility] Comment on above: Performed By: #### P SAS #### [facility] [address] [address] [address] Nabil Che Basophils/100 WBC (Bld) 0.9 % Normal 0.2-2.0 [facility] Comment on above: Performed By: #### P SAS #### [facility] [address] [address] [address] Nabil Che EO # 0.3 103/ul Normal 0.0-0.7 [facility] Comment on above: Performed By: #### P SASC #### [facility] [address] [place] [address] Dr. Nabil Che Eosinophils/100 WBC (Bld) 3.3 % Normal 0.9-7.0 [facility] Comment on above: Performed By: #### P SASC #### [facility] [address] [place] [address] Dr. Nabil Che Erythrocyte distribution width (RBC) [Ratio] 13.2 % Normal 11.0-15.0 [facility] Comment on above: Performed By: #### P SASC #### [facility] [address] [place] [address] Dr. Nabil Che Hematocrit (Bld) [Volume fraction] 51.1 % Normal 42.0-54.0 [facility] Comment on above: Performed By: #### P SASC #### [facility] [address] [place] [address] Dr. Nabil Che Hemoglobin (Bld) [Mass/Vol] 17.8 g/dL Normal 14.0-18.0 [facility] Comment on above: Performed By: #### P SASC #### [facility] [address] [place] [address] Dr. Nabil Che IG # 0.07 10e3/ul Critically high 0.00-0.03 [facility] Comment on above: Performed By: #### P SASC #### [facility] [address] [place] [address] Dr. Nabil Che IG % 0.7 % Critically high 0.0-0.5 [facility] Comment on above: Performed By: #### P SASC #### [facility] [address] [place] [address] Dr. Nabil Che LYMPH # 2.1 103/ul Normal 1.2-3.8 [facility] Comment on above: Performed By: #### P SASC #### [facility] [address] [address] [address] Nabil Che Lymphocytes/100 WBC (Bld) 21.2 % Normal 20.5-60.0 [facility] Comment on above: Performed By: #### P SASC #### [facility] [address] [address] [address] Nabil Che MANUAL DIFF REQ NO Normal [facility] Comment on above: Performed By: #### P SASC #### [facility] [address] [address] [address] Nabil Che MCH (RBC) [Entitic mass] 31.5 pg Normal 25.9-34.0 [facility] Comment on above: Performed By: #### P SASC #### [facility] [address] [place] [address] Dr. Nabil Che MCHC (RBC) [Mass/Vol] 34.8 g/dL Normal 29.9-35.2 [facility] Comment on above: Performed By: #### P SASC #### [facility] [address] [place] [address] Dr. Nabil Che MCV (RBC) [Entitic vol] 90.4 fL Normal 80.0-94.0 [facility] Comment on above: Performed By: #### P SASC #### [facility] [address] [place] [address] Dr. Nabil Che MONO # 1.2 103/ul Critically high 0.3-0.8 [facility] Comment on above: Performed By: #### P SASC #### [facility] [address] [place] [address] Dr. Nabil Che Monocytes/100 WBC (Bld) 12.1 % Critically high 1.7-12.0 [facility] Comment on above: Performed By: #### P SASC #### [facility] [address] [place] [address] Dr. Nabil Che NEUT # 6.0 103/ul Normal 1.4-6.5 [facility] Comment on above: Performed By: #### P SASC #### [facility] [address] [address] [address] Nabil Che Neutrophils/100 WBC (Bld) 61.8 % Normal 43.0-75.0 [facility] Comment on above: Performed By: #### P SASC #### [facility] [address] [address] [address] Nabil Che Platelet mean volume (Bld) [Entitic vol] 10.3 fL Normal 9.5-13.5 [facility] Comment on above: Performed By: #### P SASC #### [facility] [address] [address] [address] Nabil Che PLT 203 103/ul Normal 150-450 [facility] Comment on above: Performed By: #### P SASC #### [facility] [address] [address] [address] aNbil Che RBC 5.65 106/ul Normal 4.70-6.10 [facility] Comment on above: Performed By: #### P SASC #### [facility] [address] [address] [address] Nabil Che WBC 9.8 103/ul Normal 4.0-11.0 [facility] Comment on above: Performed By: #### P SASC #### [facility] [address] [place] [address] Dr. Nabil Che LIPID PROFILEon 09-04-2022 CHOL-HDL RATIO NORM SEE BELOW Normal [facility] Comment on above: Result Comment: 3.3 - 4.4 LOW RISK 4.4 - 7.1 AVERAGE RISK 7.1 - 11.0 MODERATE RISK >11.0 HIGH RISK Performed By: #### L IPID, CMP #### [facility] [address] [address] [address] Nabil Che Cholesterol [Mass/Vol] 231 mg/dL Critically high <=200 [facility] Comment on above: Performed By: #### L IPID, CMP #### [facility] [address] [address] [address] Nabil Che Cholesterol in HDL [Mass/Vol] 37 mg/dL Critically low 40-60 [facility] Comment on above: Performed By: #### L IPID, CMP #### [facility] [address] [address] [address] Nabil Che Cholesterol in LDL [Mass/Vol] 137.0 mg/dL Normal [facility] Comment on above: Performed By: #### L IPID, CMP #### [facility] [address] [address] [address] Nabil Che Cholesterol.total/Cho lesterol in HDL [Mass ratio] 6.2 {ratio} Normal [facility] Comment on above: Performed By: #### L IPID, CMP #### [facility] [address] [address] [address] Nabil Che HDL NORMAL > or = 60 mg/dl - LO W CARDIOVASCULAR RISK <40 mg/dl - HIGH CARDIOVASCULAR RISK Normal [facility] Comment on above: Performed By: #### L IPID, CMP #### [facility] [address] [place] [address] Dr. Nabil Che LDL CALC NORMAL SEE BELOW Normal [facility] Comment on above: Result Comment: <100 mg/dl OPTIMAL 100 - 129 mg/dl NEAR OR ABOVE OPTIMAL 130 - 159 mg/dl BORDERLINE HIGH 160 - 189 mg/dl HIGH >190 mg/dl VERY HIGH Performed By: #### L IPID, CMP #### [facility] [address] [place] [address] Dr. Nabil Che Triglyceride [Mass/Vol] 285 mg/dL Critically high <=150 [facility] Comment on above: Performed By: #### L IPID, CMP #### [facility] [address] [place] [address] Dr. Nabil Che VLDL CALC 57.0 mg/dL Normal [facility] Comment on above: Performed By: #### L IPID, CMP #### [facility] [address] [place] [address] Dr. Nabil Che PROF 14(COMP METB)on 023 Albumin [Mass/Vol] 3.7 g/dL Normal 3.4-5.0 [facility] Comment on above: Performed By: #### L IPID, CMP #### [facility] [address] [address] [address] Nabil Che Albumin/Globulin [Mass ratio] 0.8 {ratio} Normal [facility] Comment on above: Performed By: #### L IPID, CMP #### [facility] [address] [address] [address] Nabil Che ALP [Catalytic activity/Vol] 96 U/L Normal 46-116 [facility] Comment on above: Performed By: #### L IPID, CMP #### [facility] [address] [address] [address] Nabil Che ALT [Catalytic activity/Vol] 42 U/L Normal 16-63 [facility] Comment on above: Performed By: #### L IPID, CMP #### [facility] [address] [address] [address] Nabil Che Anion gap [Moles/Vol] 11.9 mmol/L Normal [facility] Comment on above: Performed By: #### L IPID, CMP #### [facility] [address] [address] [address] Nabil Che AST [Catalytic activity/Vol] 23 U/L Normal 15-37 [facility] Comment on above: Performed By: #### L IPID, CMP #### [facility] [address] [address] [address] Nabil Che Bilirubin [Mass/Vol] 0.5 mg/dL Normal 0.2-1.0 [facility] Comment on above: Performed By: #### L IPID, CMP #### [facility] [address] [address] [address] Nabil Che Calcium [Mass/Vol] 9.1 mg/dL Normal 8.5-10.1 [facility] Comment on above: Performed By: #### L IPID, CMP #### [facility] [address] [address] [address] Nabil Che Chloride [Moles/Vol] 104 mmol/L Normal 98-107 [facility] Comment on above: Performed By: #### L IPID, CMP #### [facility] [address] [address] [address] Nabil Che CO2 [Moles/Vol] 29.7 mmol/L Normal 21.0-32.0 [facility] Comment on above: Performed By: #### L IPID, CMP #### [facility] [address] [address] [address] Nabil Che Creatinine [Mass/Vol] 1.07 mg/dL Normal 0.70-1.30 [facility] Comment on above: Performed By: #### L IPID, CMP #### [facility] [address] [place] [address] Dr. Nabil Che EGFR-AF GAMBIAN >60 Normal >=60 [facility] Comment on above: Performed By: #### L IPID, CMP #### [facility] [address] [place] [address] Dr. Nabil Che EGFR-NON AF GAMBIAN >60 Normal >=60 [facility] Comment on above: Performed By: #### L IPID, CMP #### [facility] [address] [place] [address] Dr. Nabil Che Globulin (S) [Mass/Vol] 4.8 g/dL Normal [facility] Comment on above: Performed By: #### L IPID, CMP #### [facility] [address] [place] [address] Dr. Nabil Che Glucose [Mass/Vol] 106 mg/dL Normal 74-106 [facility] Comment on above: Performed By: #### L IPID, CMP #### [facility] [address] [place] [address] Dr. Nabil Che Potassium [Moles/Vol] 4.6 mmol/L Normal 3.5-5.1 [facility] Comment on above: Performed By: #### L IPID, CMP #### [facility] [address] [place] [address] Dr. Nabil Che Protein [Mass/Vol] 8.5 g/dL Critically high 6.4-8.2 T [facility] Comment on above: Performed By: #### L IPID, CMP #### [facility] [address] [place] [address] Dr. Nabil Che Sodium [Moles/Vol] 141 mmol/L Normal 136-145 [facility] Comment on above: Performed By: #### L IPID, CMP #### [facility] [address] [place] [address] Dr. Nabil Che Urea nitrogen [Mass/Vol] 13.0 mg/dL Normal 7.0-18.0 [facility] Comment on above: Performed By: #### L IPID, CMP #### [facility] [address] [place] [address] Dr. Nabil Che Urea nitrogen/Creatinine [Mass ratio] 12.1 mg/mg Normal [facility] Comment on above: Performed By: #### L IPID, CMP #### [facility] [address] [place] [address] Dr. Nabil Che PROTIMEon 09-04-2022 INR Coag (PPP) [Relative time] 3.32 {INR} Normal [facility] Comment on above: Performed By: #### P T #### [facility] [address] [place] [address] Dr. Nabil Che INR GUIDELINES SEE BELOW Normal [facility] Comment on above: Result Comment: LETY RED INR: 2.0 - 3.0 CONDITIONS NOT LISTED BELOW 2.5 - 3.5 FOR PROSTHETIC HEART VALVE REPLACEMENT 2.5 - 3.5 RECURRENT THROMBOSIS Performed By: #### P T #### [facility] [address] [place] [address] Dr. Nabil Che PT Coag (PPP) [Time] 32.9 s Critically high 9.0-11.6 [facility] Comment on above: Performed By: #### P T #### [facility] [address] [place] [address] Dr. Nabil Che Lab Reportson 07-30-2022 Lab Reports [id number] D:127 Normal [facility] PROTIMEon 07-27-2022 INR Coag (PPP) [Relative time] 2.82 {INR} Normal [facility] Comment on above: Performed By: #### P T #### [facility] [address] [place] [address] Dr. Nabil Che INR GUIDELINES SEE BELOW Normal [facility] Comment on above: Result Comment: LETY RED INR: 2.0 - 3.0 CONDITIONS NOT LISTED BELOW 2.5 - 3.5 FOR PROSTHETIC HEART VALVE REPLACEMENT 2.5 - 3.5 RECURRENT THROMBOSIS Performed By: #### P T #### [facility] [address] [place] [address] Dr. Nabil Che PT Coag (PPP) [Time] 28.2 s Critically high 9.0-11.6 [facility] Comment on above: Performed By: #### P T #### [facility] [address] [place] [address] Dr. Nabil Che CBC AUTO DIFFon 06-07-2022 BASO # 0.1 103/ul Normal 0.0-0.1 [facility] Comment on above: Performed By: #### P SASC #### [facility] [address] [place] [address] Dr. Nabil Che Basophils/100 WBC (Bld) 1.1 % Normal 0.2-2.0 [facility] Comment on above: Performed By: #### P SASC #### [facility] [address] [place] [address] Dr. Nabil Che EO # 0.4 103/ul Normal 0.0-0.7 [facility] Comment on above: Performed By: #### P SASC #### [facility] [address] [place] [address] Dr. Nabil Che Eosinophils/100 WBC (Bld) 3.7 % Normal 0.9-7.0 [facility] Comment on above: Performed By: #### P SASC #### [facility] [address] [place] [address] Dr. Nabil Che Erythrocyte distribution width (RBC) [Ratio] 13.2 % Normal 11.0-15.0 [facility] Comment on above: Performed By: #### P SASC #### [facility] [address] [address] [address] Nabil Che Hematocrit (Bld) [Volume fraction] 49.2 % Normal 42.0-54.0 [facility] Comment on above: Performed By: #### P SASC #### [facility] [address] [place] [address] Dr. Nabil Che Hemoglobin (Bld) [Mass/Vol] 17.3 g/dL Normal 14.0-18.0 [facility] Comment on above: Performed By: #### P SASC #### [facility] [address] [place] [address] Dr. Nabil Che IG # 0.04 10e3/ul Critically high 0.00-0.03 [facility] Comment on above: Performed By: #### P SASC #### [facility] [address] [place] [address] Dr. Nabil Che IG % 0.4 % Normal 0.0-0.5 [facility] Comment on above: Performed By: #### P SASC #### [facility] [address] [address] [address] Nabil Che LYMPH # 2.5 103/ul Normal 1.2-3.8 [facility] Comment on above: Performed By: #### P SASC #### [facility] [address] [place] [address] Dr. Nabil Che Lymphocytes/100 WBC (Bld) 26.3 % Normal 20.5-60.0 [facility] Comment on above: Performed By: #### P SASC #### [facility] [address] [place] [address] Dr. Nabil Che MANUAL DIFF REQ NO Normal [facility] Comment on above: Performed By: #### P SASC #### [facility] [address] [place] [address] Dr. Nabil Che MCH (RBC) [Entitic mass] 31.2 pg Normal 25.9-34.0 [facility] Comment on above: Performed By: #### P SASC #### [facility] [address] [address] [address] Nabil Che MCHC (RBC) [Mass/Vol] 35.2 g/dL Normal 29.9-35.2 [facility] Comment on above: Performed By: #### P SASC #### [facility] [address] [address] [address] Nabil Che MCV (RBC) [Entitic vol] 88.6 fL Normal 80.0-94.0 [facility] Comment on above: Performed By: #### P SASC #### [facility] [address] [address] [address] Nabil Che MONO # 1.3 103/ul Critically high 0.3-0.8 [facility] Comment on above: Performed By: #### P SASC #### [facility] [address] [place] [address] Dr. Nabil Che Monocytes/100 WBC (Bld) 13.3 % Critically high 1.7-12.0 [facility] Comment on above: Performed By: #### P SASC #### [facility] [address] [address] [address] Nabil Che NEUT # 5.2 103/ul Normal 1.4-6.5 [facility] Comment on above: Performed By: #### P SASC #### [facility] [address] [place] [address] Dr. Nabil Che Neutrophils/100 WBC (Bld) 55.2 % Normal 43.0-75.0 [facility] Comment on above: Performed By: #### P SASC #### [facility] [address] [place] [address] Dr. Nabil Che Platelet mean volume (Bld) [Entitic vol] 10.4 fL Normal 9.5-13.5 [facility] Comment on above: Performed By: #### P SASC #### [facility] [address] [place] [address] Dr. Nabil Che PLT 199 103/ul Normal 150-450 [facility] Comment on above: Performed By: #### P SASC #### [facility] [address] [place], [place] [address] Dr. Nabil Che RBC 5.55 106/ul Normal 4.70-6.10 [facility] Comment on above: Performed By: #### P SASC #### [facility] [address] [place], [place] [address] Dr. Nabil Che WBC 9.4 103/ul Normal 4.0-11.0 [facility] Comment on above: Performed By: #### P SASC #### [facility] [address] [place], [place] [address] Dr. Nabil Che Office Visit (Cardiology)on 06-07-2022 [...] Weight Tips; Status:Complete - Retrospective Authorization; Done: [id number] Some eating tips that can help you lose weight.; Status:Complete - Retrospective Authorization; Done: [id number] Paroxysmal atrial fibrillation IO EKG Electrocardiogram- 12 Lead; Status:Complete; Done: [id number] SocHx: Current every day smoker You need to stop smoking. Though it is not easy, more than half of all adult smokers have quit. We encourage you to write down all the reasons you should quit smoking and set a quit date for yourself. Ask us how we can help. You may also call 1-319-GCDV-NOW for free resources and assistance.; Status:Complete - Retrospective Authorization; Done: [id number] Tobacco Use Screening; Status:Complete; Done: [id number] Patient Instructions Please bring all medicines, vitamins, [...] any palpitations since he started taking magnesium pwfa-nhy-nygspkq. He is on Multaq and his rhythm [...] 10 MG Oral TabletTake 1 tablet daily [place] 3 1000 MG Oral CapsuleTAKE 2 CAPSULE [...] negative for complaint. Vitals Vital Signs Recorded: [id number] 09:01AM Heart Rate52, L Radial Sdywclks154, LUE, Sitting Zntooqlmo69, LUE, Sitting Height5 ft 11 in Ptlkcb831 lb BMI Pdlwdlvzbg78.75 kg/m2 BSA Calculated2.29 Tobacco Usea) Yes Patient encouraged to stop using tobacco productsYes PHQ-2 #1. Over the last 2 weeks have you felt down, depressed or hopeless? (If yes, answer PHQ-9 below)No PHQ-2 #2. Ove (more content not included)... Normal [employer] PROF CHEM 8 (BAS METB)on Anion gap [Moles/Vol] 12.2 mmol/L Normal [facility] Comment on above: Performed By: #### P SASC #### [facility] [address] [address] [address] Nabil Che Calcium [Mass/Vol] 9.1 mg/dL Normal 8.5-10.1 [facility] Comment on above: Performed By: #### P SASC #### [facility] [address] [place], [place] [address] Dr. Nabil Che Chloride [Moles/Vol] 103 mmol/L Normal 98-107 [facility] Comment on above: Performed By: #### P SASC #### [facility] [address] [address] [address] Nabil Che CO2 [Moles/Vol] 29.0 mmol/L Normal 21.0-32.0 [facility] Comment on above: Performed By: #### P SASC #### [facility] [address] [address] [address] Nabil Che Creatinine [Mass/Vol] 1.01 mg/dL Normal 0.70-1.30 [facility] Comment on above: Performed By: #### P SASC #### [facility] [address] [address] [address] Nabil Che EGFR-AF GAMBIAN >60 Normal >=60 [facility] Comment on above: Performed By: #### P SASC #### [facility] [address] [address] [address] Nabil Che EGFR-NON AF GAMBIAN >60 Normal >=60 [facility] Comment on above: Performed By: #### P SASC #### [facility] [address] [address] [address] Nabil Che Glucose [Mass/Vol] 113 mg/dL Critically high 74-106 T [facility] Comment on above: Performed By: #### P SASC #### [facility] [address] [address] [address] Nabil Che Potassium [Moles/Vol] 4.2 mmol/L Normal 3.5-5.1 [facility] Comment on above: Performed By: #### P SASC #### [facility] [address] [address] [address] Nabil Che Sodium [Moles/Vol] 140 mmol/L Normal 136-145 [facility] Comment on above: Performed By: #### P SASC #### [facility] [address] [address] [address] Nabil Che Urea nitrogen [Mass/Vol] 9.0 mg/dL Normal 7.0-18.0 [facility] Comment on above: Performed By: #### P SASC #### [facility] [address] [address] [address] Nabil Che Urea nitrogen/Creatinine [Mass ratio] 8.9 mg/mg Normal [facility] Comment on above: Performed By: #### P SASC #### [facility] [address] [place] [address] Dr. Nabil Che Tobacco Screening.on 023 Adult depression screening assessment No [facility] [address] DO Work Phone: Tobacco use status CPHS a) Yes [facility] 250 DO Work Phone: Tobacco Screening. Yes [facility] 250 DO Work Phone: Lab Reportson 05-27-2022 Lab Reports [id number]#1.00C D:127 Normal [facility] PROTIMEon 05-24-2022 INR Coag (PPP) [Relative time] 2.87 {INR} Normal [facility] Comment on above: Performed By: #### P T #### [facility] [address] [address] [address] Nabil Che INR GUIDELINES SEE BELOW Normal [facility] Comment on above: Result Comment: LETY RED INR: 2.0 - 3.0 CONDITIONS NOT LISTED BELOW 2.5 - 3.5 FOR PROSTHETIC HEART VALVE REPLACEMENT 2.5 - 3.5 RECURRENT THROMBOSIS Performed By: #### P T #### [facility] [address] [address] [address] Nabil Che PT Coag (PPP) [Time] 28.7 s Critically high 9.0-11.6 [facility] Comment on above: Performed By: #### P T #### [facility] [address] [address] [address] Nabil Che [facility] 04-29-2022 Lab Reports [id number]#1.00C D:127 Normal [facility] PROTIMEon 04-27-2022 INR Coag (PPP) [Relative time] 2.17 {INR} Normal [facility] Comment on above: Performed By: #### P SASC #### [facility] [address] [place] [address] Dr. Nabil Che INR GUIDELINES SEE BELOW Normal [facility] Comment on above: Result Comment: LETY RED INR: 2.0 - 3.0 CONDITIONS NOT LISTED BELOW 2.5 - 3.5 FOR PROSTHETIC HEART VALVE REPLACEMENT 2.5 - 3.5 RECURRENT THROMBOSIS Performed By: #### P SASC #### [facility] [address] [place] [address] Dr. Nabil Che PT Coag (PPP) [Time] 22.3 s Critically high 9.0-11.6 [facility] Comment on above: Performed By: #### P SASC #### [facility] [address] [place] [address] Dr. Nabil Che [facility] 04-10-2022 Lab Reports [id number]#1.00C D:127 Normal [facility] PROTIMEon 04-07-2022 INR Coag (PPP) [Relative time] 1.09 {INR} Normal [facility] Comment on above: Performed By: #### P T #### [facility] [address] [place] [address] Dr. Nabil Che INR GUIDELINES SEE BELOW Normal [facility] Comment on above: Result Comment: LETY RED INR: 2.0 - 3.0 CONDITIONS NOT LISTED BELOW 2.5 - 3.5 FOR PROSTHETIC HEART VALVE REPLACEMENT 2.5 - 3.5 RECURRENT THROMBOSIS Performed By: #### P T #### [facility] [address] [place] [address] Dr. Nabil Che PT Coag (PPP) [Time] 11.7 s Critically high 9.0-11.6 [facility] Comment on above: Performed By: #### P T #### [facility] [address] [place] [address] Dr. Nabil Che [facility] 03-28-2022 Lab Reports [id number]#1.00C D:127 Normal [facility] PROTIMEon 03-27-2022 INR Coag (PPP) [Relative time] 1.11 {INR} Normal [facility] Comment on above: Performed By: #### P SASC #### [facility] [address] [place] [address] Dr. Nabil Che INR GUIDELINES SEE BELOW [facility] Comment on above: Result Comment: LETY RED INR: 2.0 - 3.0 CONDITIONS NOT LISTED BELOW 2.5 - 3.5 FOR PROSTHETIC HEART VALVE REPLACEMENT 2.5 - 3.5 RECURRENT THROMBOSIS Performed By: #### P SASC #### [facility] [address] [place] [address] Dr. Nabil Che PT Coag (PPP) [Time] 11.9 s Critically high 9.0-11.6 [facility] Comment on above: Performed By: #### P SASC #### [facility] [address] [place] [address] Dr. Nabil Che [facility] 02-23-2022 Lab Reports [id number]#1.00C D:127 Normal [facility] PROTIMEon 02-22-2022 INR Coag (PPP) [Relative time] 1.84 {INR} Normal [facility] Comment on above: Performed By: #### P T #### [facility] [address] [place] [address] Dr. Nabil Che INR GUIDELINES SEE BELOW Normal [facility] Comment on above: Result Comment: LETY RED INR: 2.0 - 3.0 CONDITIONS NOT LISTED BELOW 2.5 - 3.5 FOR PROSTHETIC HEART VALVE REPLACEMENT 2.5 - 3.5 RECURRENT THROMBOSIS Performed By: #### P T #### [facility] [address] [place] [address] Dr. Nabil Che PT Coag (PPP) [Time] 19.1 s Critically high 9.0-11.6 [facility] Comment on above: Performed By: #### P T #### [facility] [address] [place] [address] Dr. Nabil Che [facility] 01-26-2022 Lab Reports [id number]#1.00C D:127 Normal [facility] PROTIMEon 01-25-2022 INR Coag (PPP) [Relative time] 1.91 {INR} Normal [facility] Comment on above: Performed By: #### P SASC #### [facility] [address] [address] [address] Nabil Che INR GUIDELINES SEE BELOW Normal [facility] Comment on above: Result Comment: LETY RED INR: 2.0 - 3.0 CONDITIONS NOT LISTED BELOW 2.5 - 3.5 FOR PROSTHETIC HEART VALVE REPLACEMENT 2.5 - 3.5 RECURRENT THROMBOSIS Performed By: #### P SASC #### [facility] [address] [place] [address] Dr. Nabil Che PT Coag (PPP) [Time] 19.8 s Critically high 9.0-11.6 [facility] Comment on above: Performed By: #### P SASC #### [facility] [address] [place] [address] Dr. Nabil Che Consultation Noteon 12-07-19 Consultation Note [id number]#1.00CD :127 Normal [facility] Tobacco Screening.on 022 Adult depression screening assessment No [facility]hi 250 DO Work Phone: Tobacco use status CPHS a) Yes [facility]hi 250 DO Work Phone: Tobacco Screening. Yes [facility]iddhi 250 DO Work Phone: [facility] 11-22-2021 Lab Reports [id number] D:127 Normal [facility] CBC AUTO DIFFon 11-21-2021 BASO # 0.1 103/ul Normal 0.0-0.1 [facility] Comment on above: Performed By: #### C BC #### [facility] [address] [address] [address] Nabil Che Basophils/100 WBC (Bld) 0.8 % Normal 0.2-2.0 [facility] Comment on above: Performed By: #### C BC #### [facility] [address] [address] [address] Nabil Che EO # 0.3 103/ul Normal 0.0-0.7 [facility] Comment on above: Performed By: #### C BC #### [facility] [address] [place] [address] Dr. Nabil Che Eosinophils/100 WBC (Bld) 3.2 % Normal 0.9-7.0 [facility] Comment on above: Performed By: #### C BC #### [facility] [address] [place] [address] Dr. Nabil Che Erythrocyte distribution width (RBC) [Ratio] 13.1 % Normal 11.0-15.0 [facility] Comment on above: Performed By: #### C BC #### [facility] [address] [place] [address] Dr. Nabil Che Hematocrit (Bld) [Volume fraction] 46.8 % Normal 42.0-54.0 [facility] Comment on above: Performed By: #### C BC #### [facility] [address] [place] [address] Dr. Nabil Che Hemoglobin (Bld) [Mass/Vol] 16.4 g/dL Normal 14.0-18.0 [facility] Comment on above: Performed By: #### C BC #### [facility] [address] [place] [address] Dr. Nabil Che IG # 0.04 10e3/ul Critically high 0.00-0.03 [facility] Comment on above: Performed By: #### C BC #### [facility] [address] [place] [address] Dr. Nabil Che IG % 0.4 % Normal 0.0-0.5 [facility] Comment on above: Performed By: #### C BC #### [facility] [address] [place] [address] Dr. Nabil Che LYMPH # 2.8 103/ul Normal 1.2-3.8 [facility] Comment on above: Performed By: #### C BC #### [facility] [address] [place] [address] Dr. Nabil Che Lymphocytes/100 WBC (Bld) 29.6 % Normal 20.5-60.0 [facility] Comment on above: Performed By: #### C BC #### [facility] [address] [place] [address] Dr. Nabil Che MANUAL DIFF REQ NO Normal [facility] Comment on above: Performed By: #### C BC #### [facility] [address] [place] [address] Dr. Nabil Che MCH (RBC) [Entitic mass] 31.3 pg Normal 25.9-34.0 [facility] Comment on above: Performed By: #### C BC #### [facility] [address] [place] [address] Dr. Nabil Che MCHC (RBC) [Mass/Vol] 35.0 g/dL Normal 29.9-35.2 [facility] Comment on above: Performed By: #### C BC #### [facility] [address] [place] [address] Dr. Nabil Che MCV (RBC) [Entitic vol] 89.3 fL Normal 80.0-94.0 [facility] Comment on above: Performed By: #### C BC #### [facility] [address] [place] [address] Dr. Nabil Che MONO # 1.4 103/ul Critically high 0.3-0.8 [facility] Comment on above: Performed By: #### C BC #### [facility] [address] [place] [address] Dr. Nabil Che Monocytes/100 WBC (Bld) 14.5 % Critically high 1.7-12.0 [facility] Comment on above: Performed By: #### C BC #### [facility] [address] [place] [address] Dr. Nabil Che NEUT # 4.9 103/ul Normal 1.4-6.5 [facility] Comment on above: Performed By: #### C BC #### [facility] [address] [place] [address] Dr. Nabil Che Neutrophils/100 WBC (Bld) 51.5 % Normal 43.0-75.0 [facility] Comment on above: Performed By: #### C BC #### [facility] [address] [place] [address] Dr. Nabil Che Platelet mean volume (Bld) [Entitic vol] 10.6 fL Normal 9.5-13.5 [facility] Comment on above: Performed By: #### C BC #### [facility] [address] [place] [address] Dr. Nabil Che PLT 173 103/ul Normal 150-450 [facility] Comment on above: Performed By: #### C BC #### [facility] [address] [place] [address] Dr. Nabil Che RBC 5.24 106/ul Normal 4.70-6.10 [facility] Comment on above: Performed By: #### C BC #### [facility] [address] [place] [address] Dr. Nabil Che WBC 9.4 103/ul Normal 4.0-11.0 [facility] Comment on above: Performed By: #### C BC #### [facility] [address] [place] [address] Dr. Nabil Che PROF CHEM 8 (BAS METB)on Anion gap [Moles/Vol] 11.7 mmol/L Normal [facility] Comment on above: Performed By: #### B MP #### [facility] [address] [place] [address] Dr. Nabil Che Calcium [Mass/Vol] 8.1 mg/dL Critically low 8.5-10.1 [facility] Comment on above: Performed By: #### B MP #### [facility] [address] [address] [address] Nabil Che Chloride [Moles/Vol] 103 mmol/L Normal 98-107 [facility] Comment on above: Performed By: #### B MP #### [facility] [address] [address] [address] Nabil Che CO2 [Moles/Vol] 28.1 mmol/L Normal 21.0-32.0 [facility] Comment on above: Performed By: #### B MP #### [facility] [address] [address] [address] Nabil Che Creatinine [Mass/Vol] 1.34 mg/dL Critically high 0.70-1.30 [facility] Comment on above: Performed By: #### B MP #### [facility] [address] [place] [address] Dr. Nabil Che EGFR-AF GAMBIAN >60 Normal >=60 [facility] Comment on above: Performed By: #### B MP #### [facility] [address] [place] [address] Dr. Nabil Che EGFR-NON AF GAMBIAN 54 mL/min/1.73m2 Critically low >=60 [facility] Comment on above: Performed By: #### B MP #### [facility] [address] [place] [address] Dr. Nabil Che Glucose [Mass/Vol] 87 mg/dL Normal 74-106 [facility] Comment on above: Performed By: #### B MP #### [facility] [address] [address] [address] Nabil Che Potassium [Moles/Vol] 4.8 mmol/L Normal 3.5-5.1 [facility] Comment on above: Performed By: #### B MP #### [facility] [address] [place] [address] Dr. Nabil Che Sodium [Moles/Vol] 138 mmol/L Normal 136-145 [facility] Comment on above: Performed By: #### B MP #### [facility] [address] [place] [address] Dr. Nabil Che Urea nitrogen [Mass/Vol] 14.0 mg/dL Normal 7.0-18.0 [facility] Comment on above: Performed By: #### B MP #### [facility] [address] [place] [address] Dr. Nabil Che Urea nitrogen/Creatinine [Mass ratio] 10.4 mg/mg Normal [facility] Comment on above: Performed By: #### B MP #### [facility] [address] [place] [address] Dr. Nabil Che PROTIMEon 11-21-2021 INR Coag (PPP) [Relative time] 2.25 {INR} Normal [facility] Comment on above: Performed By: #### P SASC #### [facility] [address] [place] [address] Dr. Nabil Che INR GUIDELINES SEE BELOW Normal [facility] Comment on above: Result Comment: LETY RED INR: 2.0 - 3.0 CONDITIONS NOT LISTED BELOW 2.5 - 3.5 FOR PROSTHETIC HEART VALVE REPLACEMENT 2.5 - 3.5 RECURRENT THROMBOSIS Performed By: #### P SASC #### [facility] [address] [place] [address] Dr. Nabil Che PT Coag (PPP) [Time] 23.0 s Critically high 9.0-11.6 [facility] Comment on above: Performed By: #### P SASC #### [facility] [address] [place] [address] Dr. Nabil Che [facility] 09-27-2021 Lab Reports [id number] D:127 Normal [facility] Lab Reports [id number] D:127 Normal [facility] Outside [facility] Correspo ndenceon 09-26-2021 Outside [facility] Correspondence [id number] D:127 Normal [facility] PROTIMEon 09-26-2021 INR Coag (PPP) [Relative time] 1.70 {INR} Normal [facility] Comment on above: Performed By: #### P SASC #### [facility] [id number] Nabil Che INR GUIDELINES SEE BELOW Normal [facility] Comment on above: Result Comment: LETY RED INR: 2.0 - 3.0 CONDITIONS NOT LISTED BELOW 2.5 - 3.5 FOR PROSTHETIC HEART VALVE REPLACEMENT 2.5 - 3.5 RECURRENT THROMBOSIS Performed By: #### P SASC #### [facility] [address] [address] [address] Nabil Che PT Coag (PPP) [Time] 17.7 s Critically high 9.0-11.6 [facility] Comment on above: Performed By: #### P SASC #### [facility] [address] [place] [address] [address] Nabil Che Reminderson 09-26-2021 Reminders - From: Jarett GUDINO DO To: [facility] - Clinical; Sent: 09/21/2021 19:58:49 EDT Show up: 09/21/2021 19:59:00 EDT Subject: Ambulatory Reminder Due Date/Time: 09/22/2021 19:58:00 EDT MRI is negative Results: Date Result Type Result Name 09/21/2021 17:20 Radiology MRI Brain w/ + w/o Contrast LMOM for patient to return call. Patient returns call, message given and verbalized understanding. 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 CD:[id number] Gh0 bWw+PGhlYWQ+PZ1AWXIhR49 ysFUhsX2UR0xOAV1WXKDVOS USHK4UPH0vwYO4TXkvT5Kdz iAv IosevNNtIB20SKc8TDU2eNd lYTezgV7suVFzX8j5MvIrNN 13vT18HHjjXFAwQlW5LuYeu jsgbWFy I4ykPrXdvEYfGao+PHRhYmx lIHdpZHRoPScxMDAlJyBzdH adOR2rRn3yVNLaONPzxRban HNlOiBj q1upMEBrOLnsYP0doMsrU8Y sfHR7DLKqe2x0Jw46zCQ+PH BgQLL2dLewGHjye395SuZho 4cxFJF5 uSFhTIdkGIK7K37cw1Q6KQD qVOApKXH4gAD3xN9shAmyzl icZ9FofHYrJtT9ICN5sCQmm B6veHmz dwctgK6iXce+B39ELR4RFKZ PCH2EGla9U6GyPujzsDA+PC 04QTTtAG89zTNgsXJuq9vsk Gv3VlLr LNVyLCR4tKvvUOnti4PeRAI cZ95voURrs2C1FUTcyOvifE CoNgEbcCV1kW3pJGdqctgmh 2hvdzsn Kryiy9tnzb11nY92A82mNMe rTCLlCEI9ZXDpOXIklCiavr 9pnC5eWj0+BEipl6mqn0mxb Yu6TrGy YLUjiuCacOrpRVK1q9BlDx0 1T8GlsFejk4RqOej7nt79mK Uje3P8cFV8ODohJPPxbF3kW WxlZnQ6 AWGsAuIwuN86gLSnRNteWz8 oyEywwBgmSS2gMRTelivfFM YpeS0fBQBckDLbmNmrLX9aP TBpbjtm n638RlIxIPT9ZCTnxIAvY8B dvH0vXdSaAZMmNFQqN5RjoT DeEDanC190IIoqLuV4MJBsh rInJ2Qb SVKdfTvsVjW6l1I3Lu7It8P putbmJSZ3SZuzXTW5MdSlWk SmJkR5T0CtGae6YTHlqYfoX F7zL0Xl ZWUyvxphnuldhHY5HGViJUV mhD84nQIrEVxlVo0rr0W2q6 44EKFxRJAacI79Xt2rcCzhO TBwdCBU eO0okkcrn1chjxkuGyOvBIW lWTl6ZWp5JUTtvAzfQhCmBB Z6WvP2RYJ1nMJelY7cpLsbd rebvT2f Oyc+P44lfW0oMRJ3HXD4iim xVRJmkdVkQP36RM04T9RvTs wvdGFibGU+PGRpdiBzdHlsZ N4kBoYr x5drm9YkQFkiR4WnPVLsUDh bHuz0TBCgMZH5uXH9mF7mNG TgQOulp4M6cSU2O7WrxkTam n5fp3xg FKStNCehW09coGHza2F2ZZB idWN5THOfeCzdMgIfeA94Uu c+MGBlyLivp6ImHuwph3ymr 5fjiKy8 GrXsLMHyfyEdkMtxCWA6n5K qVy92K70pWMcaZIIgLSTcDL JdYUQnnUibai3kkQ0uCl2+P GNvbCB3 uYD4iY3dWUOhHlT6EDyrL39 1LaDbxKKzEzsxt3bdt0qglN m8YrYkNAJgqyDrxGkxRVM0q 7LxWb41 A65dHGoaWJIiJPVeHKXuYVD twWzpys9izE6oJw7+PC9jb2 tuox49fD09kSA+ULYlIGY6j WxlPSdw UNDneU4eOIkkKoE8QLHfFdD bhS31oRRlEGlfMh3vzMhtiW gpCY0dNMUvaehfb380LuCrb 2xkIDEw cNRbNRvkHYD7C89tn1A7BLS pQPDgKRK3gLP0vQ0mcLmyrs ogbGVmdDsgdmVydGljYWwtY ScmJ184 IHRvcDsnPlBhdGllbnQgTmF vXGv8V3XuLhw0DBFqtByaYN 8loJSsRLrqMz1qfRtioMkbP M6vCOVf cnnzf887IhXqn7suTGIkaIZ fXXdpERU7P20bn6D2UTTkCH WcIQV1gJH4bF7zpJungbgew GVmdDsg xqXztBfzGHevAIbpC831BPY fhQwmRpSiguPxFQIetLN2YK 91KD05sQPmg1P8lYA5G1KiI GRpbmct diotpYJ9OAGlEUVkvO16Pt7 ykBmtCp8nZHHcERY4JJXniO HbL0XgdI2zFyTaKFSaXBVlB 3RleHQt CJfpH442TDroKlR5TXVjaiA eS4LpXPHfcUuqQnI8x8B2Vk 0XF7H7TK77LI67xOYiz1G5k PA2A3Jm ZDAngaaasyvbeZI6ZDMpTPB dfC01Hu7yiWpgNj3fCNCgBQ V3DFUyhPHdF8TngQ7cVeSfQ DAwMDAw B6WdxYOtERxvB612VJkhDtB 4NVXwgoEjT2GrWOGcfGgkOp T7f9X4Xz3ZQSl3VD59TM16a CHsd8K5 lKK9G8BfOXZuaoafxrcxeLP 3VSPoUVIxqV99Ia9dfUtuXl 4aYTGyMKI6JKFvwJQcX5Cyu D7oSdZj FDXnOIBmZ4NqvPErDManP87 6XCygOrF6BAWcgxAzK3IwSB UajJhpZeW7u2T6Mz3OUHFzO A60WDY0 cHO8HZ57UZ37M4MsRdpjqLJ ibGU+PHRhYmxlIHdpZHRoPS xsREZhGqXqiEntAC6dNs0eE GVyLWNv aLhmrYLmQlIve4jqSPLpQBm jYI3deDxzJ2RqkFG3ZJWuh9 e6Il67Z80cM0IwjKA+PGNvb SF7jQF2 yF0cHeHwLuE5UTieE100QgV svHAdSilim3xer7orkKj6Ie F1RDDrgjWjyQkvATB4y3XtK h97J95m IHdpZHRoPSIxNSUiIHZhbGl elw8csM9cWo0+AFMnfTL4dG J3kZ6sSvQfBqM5MYluM103K nRvcCIv Jmtna8kbc3rbwCd6AaJcOLG kruFnlAcwUPE3d7FmBb99N8 SgcVkoi1UiVqp1ge19zUXux 4W3xXD7 X7JyUNPffluvuKDawOuiLZ8 iLQObrszlRSWvnL1zOUUoC9 c0QmXpFoE2EFhuK2GjajA4K DEwcHQg BSvrYUG8R73ug4O5EIUyGQL xFAY6tGD1bB6oxNhhfrasdN VmdDsgdmVydGljYWwtYWxpZ 246IHRv qXkbYXHzpC8fFTXqlRVpxNf rWK1hMQCkrozaTniHNoBYWO ZKSYQIVRZ1D3WbRsv5GMMqz AqgND2a sNNmVWxrNr5btXsodCujLZ9 uANTpskhcRXYbdY2qQJLrmW TvaGimAU4rJMCqrshzn492C iAxMHB0 GPIygZThB1HzgM0nIpKnMVS fAMNnI9PmfXHyPOkzY384AF uoLtO2QDGkuiPaG7MaCONbz WduOiB0 u6N5Sy5bLj4tEJ0vUMCiFP0 5CX75gXWca3C0eXT4X7BbOU SupopvojzoxCL5QOLaFDIeq P87fFDg DKnnZc6dj9P7w229PEQnIHP dlD69Ef6sdXmfQLVvbVXNtL 4unmftw2gwpgkjTdKlMASlB Xd2KAv4 MWRziDfzDkCgKJD7ZmU2YGV 7sLXkdD0nyZlmgkbsuZ5pGk c+RkGxOYEcrbS3F2KzCxu2X CBzdHls EI2lfCMkNWiiAt9mjOdtdFe kHE3dOBKwygrgURLqjR1rEH ZuwTXbhCzaPR3tHSWaxvcvd 250OiAx MRK2PIZooYAwU4WiwV1aBhI hEEOiSZCxT7EbbQYiZEmmO2 61DQkbGtV3PUSlfpUqA1AlM WFsaWdu UgU4c6R5Dm4LPOhsTD45DK3 1wQUyz8P4rIF9R8ZzAEQqqz rjwqwvfFM4LPNyENHjpJ57j GFkZGlu Jh5ue7W2f407CVEvOXSxwS3 6Ji2hcFeaPHUnrWLFkB6lxp xbt6xocapkWeNfBTUnKPu5D Bf6MSLs aYoiZzRzYTP4BmA5OPI4yZZ snC3mbTikpjclyL8tMmr+T3 B5gGH8nZTagMvloET+PC90c q04C2Bs BfisKsn7FIZwWBW5cMB3xX9 bNZDpSAzba1F9bPG0Q5Vgbf Tcrz7it1hzHQUzGSwcE91ok RWwd7B3 ITRugLX8GTVbsOzvRoQceA7 3Oyc+EMOmrTlea2RsOxsbv7 mlx0wmjHd1ZfTfDEPufhIbe WduPSJ0 c6NsDq93P46bGRnwSGDrFJU kNAYdVHGajBggze3ssC8dLq 8+JTGsbJY4uZW0zS8pUhUvD vC3QFcu P033KeTmoSDzFkuow8skx8p eiHv2VxJzVQNcogOsdVkgZF B2q5NsMp48O8KhqUrle9NnN ox4oo13 bRMup2V8wXJ1S7OfIBXppse deXAkoQktMG8pQQYexzjjMD TpqU2lMHNbR4r2PdKfLkZ1C IjfP3Pa hnG3GSMijAMvTDJroXTBkM9 hdrcye4mjeyuyOcUzUVAhFV m1ORx4JZYnnHrcXdReZMQ8Y tQ9DIX4 sQXxpF2dsIzfjiljbG8eOba +FZi3z6quiHLcZJ9grMS4TH 99LF75tZFlt3H1eCB3Z0EsK GRpbmct wgdsbEU4YYBxLQYfoY92Pw2 gbPloNf5gTLGoZRP4ARLelR JzU7YmrZ0uPbWsSALeKWCzM 3RleHQt XEdtF027HSeqVeY7TUZhztT kZ8GmPJNjpHwvHcR8v8U3Hr 4CZV94LH59QP32nFXrj0U9t RC3Q4Uu DJXbslijtlloqBW2GOSyVDK vmD67Qa3jlUaaYy4rNVScJK X3XLQxoATpN9AqoC2yRuIsV DAwMDAw V0LgjFVqIUptN852LFxkCkN 2FVDkjgPlT9LbGYLgqLgyOc K5l2B8Gw4ARa10WW90BE54g YEng4D1 dTB9P0UnVCFnjymvihjnxHJ 3AIZsAYNopV19Ww9pbHvsKd 8kZXDcRMH1MKSiwROrJ1Uoi W4sCzDa CLPfDHIhQ7TxxPTyUAgwQ21 7ZNaySyS2VCFkavZkZ1GfGG JulPcmEuD1f1C4Hz1YPPrxb gn4A2Vi PjwvdHI+SO17VZZxAN96tEL hwHFhv6npkXv2PtHeAHIvTX J2eNyeJZtyo5VcYQOqW57jc YIxz5N9 IGNv (more content not included)... Normal [facility] MRI Brain w/ + w/o Contrasto [...] MultiHance Contrast amount in ml's: 20 Normal [facility] Consent for Treatmenton 05-2 Consent for Treatment [id number]#[id number] D:127 Normal [facility] RAD - MRI Screening Formon 0 09-16-2021 RAD - MRI Screening Form [id number]#[id number] D:127 Normal [facility] Ambulatory Visit Summaryon 0 09-09-2021 Ambulatory Visit Summary ABHINAV FELIX :1960 Visit Date:09/09/2021 Ambulatory Visit Instructions Your Diagnosis Preventative health care Trigeminal neuralgia Dizziness Hearing loss on right Your Care Team Attending Physician - Jarett GUDINO DO Primary Care Physician - Jarett GUDINO [...] year Where: [address] [place] [address]- You Need to Complete the Following MRI [...] of prostate\.br\ Trigeminal neuralgia\.br\ Vasovagal attack\.br\ \.br\ [facility] Family [facility] Office/Clini c Noteon 05-20-2022 [...] he has his labs drawn monthly at [facility], but no results are documented or filed in the chart. Also takes Aciphex 20mg once daily. States this is still working well for him. Labs completed at [facility] on 09/05/21. States he has had a colonoscopy within the past [address] Estes ([facility]). History of Present Illness [...] spasm, # 30 tab(s), Refills(s) 0, Pharmacy: [facility]/pharmacy #[id number], 180.3, cm, 05/20/20 15:18:00 EST, Height/Length Dosing, 108.4, kg, 05/20/20 15:18:00 EST, Weight Dosing Follow-up With When Contact Information Jarett GUDINO DO, FAM In 1 year [address] [place] [address]- Additional Instructions: Problem List/Past Medical History Ongoing [...] influenza virus vaccine, inactivated 02/12/2013 Recorded Normal [facility] Comment on above: Result Comment: Elec tronically Signed By: Jarett GUDINO DO\Date and Time Signed: 09/09/21 10:19 EDT Lab Reportson 08-31-2021 Lab Reports [id number] D:127 Normal [facility] Tobacco Screening.on 022 Tobacco use status CPHS a) Yes [facility]-Sandu riddhi 250 DO Work Phone: Tobacco Screening. Yes -[facility]-Sandu riddhi 250 DO Work Phone: [facility]Con 02-11-2019 Erythrocyte distribution width (RBC) [Ratio] 12.9 % Normal 11.5 - 14.5 [facility] Comment on above: Performed By: #### C BC #### [address] [address] Hematocrit (Bld) [Volume fraction] 48.1 % Normal 41.0 - 52.0 [facility] Comment on above: Performed By: #### C BC #### [address] [address] Hemoglobin (Bld) [Mass/Vol] 16.7 g/dL Normal 13.5 - 17.5 [facility] Comment on above: Performed By: #### C BC #### [address] [address] MCHC (RBC) [Mass/Vol] 34.7 g/dL Normal 32.0 - 36.0 [facility] Comment on above: Performed By: #### C BC #### [address] [address] MCV (RBC) [Entitic vol] 91 fL Normal 80 - 100 [facility] Comment on above: Performed By: #### C BC #### [address] [address] Platelets (Bld) [#/Vol] 182 10*3/uL Normal 150 - 450 [facility] Comment on above: Performed By: #### C BC #### [address] [address] RBC (Bld) [#/Vol] 5.26 x10E12/L Normal 4.50 - 5.90 [facility] Comment on above: Performed By: #### C BC #### [address] [address] WBC (Bld) [#/Vol] 9.3 10*3/uL Normal 4.4 - 11.3 [facility] Comment on above: Performed By: #### C BC #### [address] [address] CREATININEon 02-11-2019 Creatinine [Mass/Vol] 0.87 mg/dL Normal 0.50 - 1.30 [facility] Comment on above: Performed By: #### C REAT #### [address] [address] Creatinine [Mass/Vol] mg/dL Normal >60 [facility] Comment on above: Result Comment: CALC ULATIONS OF ESTIMATED GFR ARE PERFORMED USING THE MDRD STUDY EQUATION FOR THE IDMS-TRACEABLE CREATININE METHODS. CLIN CHEM 2007;53:766-72 Performed By: #### C REAT #### [address] [address] ELECTROLYTE PANELon 02-12-20 19 Anion gap [Moles/Vol] 12 mmol/L Normal 10 - 20 [facility] Comment on above: Performed By: #### E LECT #### [address] [address] Chloride [Moles/Vol] 105 mmol/L Normal 98 - 107 [facility] Comment on above: Performed By: #### E LECT #### [address] [address] HCO3 (Bld) [Moles/Vol] 28 mmol/L Normal 21 - 32 [facility] Comment on above: Performed By: #### E LECT #### [address] [address] Potassium [Moles/Vol] 4.1 mmol/L Normal 3.5 - 5.3 [facility] Comment on above: Performed By: #### E LECT #### [address] [address] Sodium [Moles/Vol] 141 mmol/L Normal 136 - 145 [facility] Comment on above: Performed By: #### E LECT #### [address] [address] UREA NITROGENon 02-11-2019 Urea nitrogen [Mass/Vol] 12 mg/dL Normal 6 - 23 [facility] Comment on above: Performed By: #### U BELÉN #### [address] [address] ALT (SGPT)on 12-26-2017 ALT enzyme act/vol 18 U/L Normal 10-52 [facility] Comment on above: Performed By: #### 1 [id number] ####[facility] [address] [place] [address] AST (SGOT)on 12-26-2017 AST enzyme act/vol 20 U/L Normal 13-39 [facility] Comment on above: Performed By: #### 1 [id number] ####[facility] [address] [place] [address] [facility] 12-26-2017 Erythrocyte distribution width Auto Ratio (RBC) 13.4 % Normal 12.0-15.4 [facility] Comment on above: Performed By: #### 2 [id number] ####[facility] [address] [place] [address] Hematocrit Auto Volume Fraction (Bld) 48.6 % Normal 38.4-54.9 [facility] Comment on above: Performed By: #### 2 195563 ####[facility] [address] [facility] [place] [address] Hemoglobin mass conc (Bld) 16.3 g/dL Normal 12.8-17.7 [facility] Comment on above: Performed By: #### 2 [id number] ####[facility] [address] [facility] [place] [address] MCH Auto Entitic mass (RBC) 31.0 pg Normal 27.5-32.9 [facility] Comment on above: Performed By: #### 2 [id number] ####[facility] [address] [facility] [place] [address] MCHC Auto mass conc (RBC) 33.5 g/dL Normal 30.5-35.4 [facility] Comment on above: Performed By: #### 2 [id number] ####[facility] [address] [place] [address] MCV Auto Entitic volume (RBC) 92.6 fL Normal 83.3-98.2 [facility] Comment on above: Performed By: #### 2 [id number] ####[facility] [address] [place] [address] NRBC Absolute 0.00 10*3/uL Normal [facility] Comment on above: Performed By: #### 2 [id number] ####[facility] [address] [facility] [place] [address] NRBC Automated 0.0 /100{WBCs} Normal [facility] Comment on above: Performed By: #### 2 [id number] ####[facility] [address] [facility] [place] [address] Platelet mean volume Auto Entitic volume (Bld) 12.0 fL Normal 9.9-12.1 [facility] Comment on above: Performed By: #### 2 [id number] ####[facility] [address] [facility] [place] [address] Platelets Auto #/vol (Bld) 156 10*3/uL Normal 155-404 [facility] Comment on above: Performed By: #### 2 [id number] ####[facility] [address] [place] [address] RBC Auto #/vol (Bld) 5.25 10*6/uL Normal 4.08-6.37 [facility] Comment on above: Performed By: #### 2 [id number] ####[facility] [address] [place] [address] RDW SD 45.5 fL Normal 39.3-48.6 [facility] Comment on above: Performed By: #### 2 [id number] ####[facility] [address] [place] [address] WBC Auto #/vol (Bld) 7.2 10*3/uL Normal 4.2-11.0 [facility] Comment on above: Performed By: #### 2 [id number] ####[facility] [address] [place] [address] Creatinineon 12-26-2017 Creatinine mass conc 0.92 mg/dL Normal 0.50-1.30 [facility] Comment on above: Performed By: #### 1 [id number] ####[facility] [address] [place] [address] GFR/1.73 sq M.predicted MDRD vol rate/area mL/min/{1.73_m2} Normal [facility] Comment on above: Result Comment: Inte rpretation for Chronic Kidney Disease:Stages 1&2 >60 Healthy or potential kidney damage.Mild decrease of GFR.Stage 3 30-59 Moderate decrease of GFR.Stage 4 15-29 Severe decrease of GFR.Stage 5 <15 Kidney failure or on dialysis. Performed By: #### 1 [id number] ####[facility] [address] [place] [address] Electrolyte Panelon 12-27-19 18 Anion gap 3 molar conc 9 mmol/L Low 10-20 [facility] Comment on above: Performed By: #### 1 [id number] ####[facility] [address] [place] [address] Chloride molar conc 106 mmol/L Normal 98-107 [facility] Comment on above: Performed By: #### 1 [id number] ####[facility] [address] [place] [address] HCO3 molar conc (Bld) 29 mmol/L Normal 21-32 [facility] Comment on above: Performed By: #### 1 [id number] ####[facility] [address] [place] [address] Potassium molar conc 4.1 mmol/L Normal 3.5-5.1 [facility] Comment on above: Performed By: #### 1 [id number] ####[facility] [address] [place] [address] Sodium molar conc 140 mmol/L Normal 136-145 [facility] Comment on above: Performed By: #### 1 [id number] ####[facility] [address] [place] [address] Urea Nitrogenon 12-26-2017 Urea nitrogen mass conc 10 mg/dL Normal 6-23 [facility] Comment on above: Performed By: #### 1 [id number] ####[facility] [address] [place] [address] Vital Signs Date Time Vital Sign Value Performing Clinician Facility 12-17-2024 11:35-0400 Body height 180.34 cm Jared Leong MD Work Phone: [facility] 12-17-2024 11:35-0400 Body mass index (BMI) [Ratio] 31.2 kg/m2 Jared Leong MD Work Phone: [facility] 12-17-2024 11:35-0400 Body weight 101.6 kg Jared Leong MD Work Phone: [facility] 12-17-2024 11:35-0400 Diastolic blood pressure 88 mm[Hg] Jared Leong MD Work Phone: [facility] 12-17-2024 11:35-0400 Heart rate 56 /min Jared Leong MD Work Phone: [facility] 12-17-2024 11:35-0400 Systolic blood pressure 159 mm[Hg] Jared Leong MD Work Phone: [facility] 11-05-2024 13:12-0400 Body height 180.34 cm Jared Leong MD Work Phone: [facility] 11-05-2024 13:12-0400 Body mass index (BMI) [Ratio] 31.1 kg/m2 Jared Leong MD Work Phone: [facility] 11-05-2024 13:12-0400 Body temperature 98.8 [degF] Jared Leong MD Work Phone: [facility] 11-05-2024 13:12-0400 Body weight 101.37 kg Jared Leong MD Work Phone: [facility] 11-05-2024 13:12-0400 Diastolic blood pressure 80 mm[Hg] Jared Leong MD Work Phone: [facility] 11-05-2024 13:12-0400 Heart rate 63 /min Jared Leong MD Work Phone: [facility] 11-05-2024 13:12-0400 Systolic blood pressure 146 mm[Hg] Jared Leong MD Work Phone: [facility] 09-11-2024 09:40-0400 Diastolic blood pressure 63 mm[Hg] Jared Leong MD Work Phone: [facility] 09-11-2024 09:40-0400 Heart rate 58 /min Jared Leong MD Work Phone: [facility] 09-11-2024 09:40-0400 Respiratory rate 20 /min Jared Leong MD Work Phone: [facility] 09-11-2024 09:40-0400 SaO2% (BldA) [Mass fraction] 98 % Jared Leong MD Work Phone: [facility] 09-11-2024 09:40-0400 Systolic blood pressure 100 mm[Hg] Jared Leong MD Work Phone: [facility] 09-11-2024 07:27-0400 Body height 180.34 cm Jared Leong MD Work Phone: [facility] 09-11-2024 07:270400 Body weight 99.79 kg Jared Leong MD Work Phone: [facility] 08-19-2024 14:31-0400 Body height 180.34 cm Jared Leong MD Work Phone: [facility] 08-19-2024 14:31-0400 Body mass index (BMI) [Ratio] 30.8 kg/m2 Jared Leong MD Work Phone: [facility] 08-19-2024 14:31-0400 Body weight 100.24 kg Jared Leong MD Work Phone: [facility] 08-19-2024 14:31-0400 Diastolic blood pressure 76 mm[Hg] Jared Leong MD Work Phone: [facility] 08-19-2024 14:31-0400 Heart rate 64 /min Jared Leong MD Work Phone: [facility] 08-19-2024 14:31-0400 Respiratory rate 20 /min Jared Leong MD Work Phone: [facility] 08-19-2024 14:31-0400 SaO2% (BldA) [Mass fraction] 97 % Jared Leong MD Work Phone: [facility] 08-19-2024 14:31-0400 Systolic blood pressure 125 mm[Hg] Jared Leong MD Work Phone: [facility] 08-15-2024 10:07-0400 Body height 180.34 cm Jared Leong MD Work Phone: [facility] 08-15-2024 10:07-0400 Body mass index (BMI) [Ratio] 30.7 kg/m2 Jared Leong MD Work Phone: [facility] 08-15-2024 10:07-0400 Body weight 99.79 kg Jared Leong MD Work Phone: [facility] 08-15-2024 10:07-0400 Diastolic blood pressure 69 mm[Hg] Jared Leong MD Work Phone: [facility] 08-15-2024 10:07-0400 Heart rate 57 /min Jared Leong MD Work Phone: [facility] 08-15-2024 10:07-0400 Systolic blood pressure 134 mm[Hg] Jared Leong MD Work Phone: [facility] 08-01-2024 13:19-0400 Body height 180.3 cm Ko Gamble MD Work Phone: [facility] 08-01-2024 13:19-0400 Body mass index (BMI) [Ratio] 30.91 kg/m2 Ko Gamble MD Work Phone: [facility] 08-01-2024 13:19-0400 Body weight 100.52 kg Ko Gamble MD Work Phone: [facility] 08-01-2024 13:19-0400 Diastolic blood pressure 70 mm[Hg] Ko Gamble MD Work Phone: [facility] 08-01-2024 13:19-0400 Heart rate 58 /min Ko Gamble MD Work Phone: [facility] 08-01-2024 13:19-0400 Systolic blood pressure 132 mm[Hg] Ko Gamble MD Work Phone: [facility] 06-17-2024 10:48-0500 Body height 180.34 cm Jared Leong MD Work Phone: [facility] 06-17-2024 10:48-0500 Body mass index (BMI) [Ratio] 30.5 kg/m2 Jared Leong MD Work Phone: [facility] 06-17-2024 10:48-0500 Body weight 99.33 kg Jared Leong MD Work Phone: [facility] 06-17-2024 10:48-0500 Diastolic blood pressure 74 mm[Hg] Jared Leong MD Work Phone: [facility] 06-17-2024 10:48-0500 Heart rate 58 /min Jared Leong MD Work Phone: [facility] 06-17-2024 10:48-0500 Systolic blood pressure 126 mm[Hg] Jared Leong MD Work Phone: [facility] 06-14-2024 09:15-0500 SaO2% (BldA) [Mass fraction] 96 % Jared Leong MD Work Phone: [facility] 06-14-2024 09:06-0500 Body height 180.34 cm Jared Leong MD Work Phone: [facility] 06-14-2024 09:06-0500 Body mass index (BMI) [Ratio] 30.4 kg/m2 Jared Leong MD Work Phone: [facility] 06-14-2024 09:06-0500 Body temperature 98.4 [degF] Jared Leong MD Work Phone: [facility] 06-14-2024 09:06-0500 Body weight 99.05 kg Jared Leong MD Work Phone: [facility] 06-14-2024 09:06-0500 Diastolic blood pressure 75 mm[Hg] Jared Leong MD Work Phone: [facility] 06-14-2024 09:06-0500 Heart rate 62 /min Jared Leong MD Work Phone: [facility] 06-14-2024 09:06-0500 Systolic blood pressure 133 mm[Hg] Jared Leong MD Work Phone: [facility] 01-04-2024 12:51-0400 Body height 180.3 cm Ko Gamble MD Work Phone: [facility] 01-04-2024 12:51-0400 Body mass index (BMI) [Ratio] 30.96 kg/m2 Ko Gamble MD Work Phone: [facility] 01-04-2024 12:51-0400 Body weight 100.7 kg Ko Gamble MD Work Phone: [facility] 01-04-2024 12:51-0400 Diastolic blood pressure 64 mm[Hg] Ko Gamble MD Work Phone: [facility] 01-04-2024 12:51-0400 Heart rate 63 /min Ko Gamble MD Work Phone: [facility] 01-04-2024 12:51-0400 Systolic blood pressure 118 mm[Hg] Ko Gamble MD Work Phone: [facility] 02-13-2023 13:30-0400 Body height 181.61 cm Uche Porter Other [employer] Other 02-13-2023 13:30-0400 Body mass index (BMI) [Ratio] 32.73 kg/m2 Augustoalverto Porter Other [employer] Other 02-13-2023 13:30-0400 Body temperature 97.1 [degF] Uche Porter Other [employer] Other 02-13-2023 13:30-0400 Body weight 107.96 kg Uche Porter Other [employer] Other 02-13-2023 13:30-0400 Diastolic blood pressure 76 mm[Hg] Uche Porter Other [employer] Other 02-13-2023 13:30-0400 Respiratory rate 20 /min Uche Porter Other [employer] Other 02-13-2023 13:30-0400 SaO2% (BldA) [Mass fraction] 96 % Uche Catnguyễn Other [employer] Other 02-13-2023 13:30-0400 Systolic blood pressure 130 mm[Hg] Uche Catnguyễn Other [employer] Other 02-09-2023 10:45-0400 Body height 181.61 cm Jared Leong Other [employer] Other 02-09-2023 10:45-0400 Body mass index (BMI) [Ratio] 32.92 kg/m2 Jared Leong Other [employer] Other 02-09-2023 10:45-0400 Body weight 108.59 kg Jared Leong Other [employer] Other 02-09-2023 10:45-0400 Diastolic blood pressure 72 mm[Hg] Jared Leong Other [employer] Other 02-09-2023 10:45-0400 SaO2% (BldA) [Mass fraction] 97 % Jared Leong Other [employer] Other 02-09-2023 10:45-0400 Systolic blood pressure 118 mm[Hg] Jared Leong Other [employer] Other 12-12-2022 09:59-0400 Body height 180.34 cm Jared Leong Work Phone: [employer] Work Phone: 12-12-2022 09:59-0400 Body mass index (BMI) [Ratio] 33.19 kg/m2 Jared Leong Work Phone: [employer] Work Phone: 12-12-2022 09:59-0400 Body surface area Derived from formula 2.27 m2 Jared Leong Work Phone: [facility] [employer] DO Work Phone: 12-12-2022 09:59-0400 Body weight 107.96 kg Jared Leong Work Phone: [facility] [employer] DO Work Phone: 12-12-2022 09:59-0400 Diastolic blood pressure 64 mm[Hg] Jared Leong Work Phone: [facility] [facility] 250 DO Work Phone: 12-12-2022 09:59-0400 Heart rate 66 /min Jared Leong Work Phone: [facility] [employer] 250 DO Work Phone: 12-12-2022 09:59-0400 Systolic blood pressure 110 mm[Hg] Jared Leong Work Phone: [facility] [employer] 250 DO Work Phone: 11-07-2022 15:00-0400 Body height 181.61 cm Uche Porter Other [facility] Other 11-07-2022 15:00-0400 Body mass index (BMI) [Ratio] 33.14 kg/m2 Uche Porter Other [facility] Other 11-07-2022 15:00-0400 Body temperature 97.8 [degF] Uche Porter Other [facility] Other 11-07-2022 15:00-0400 Body weight 109.32 kg Uche Porter Other [facility] Other 11-07-2022 15:00-0400 Diastolic blood pressure 81 mm[Hg] Uche Porter Other [facility] Other 11-07-2022 15:00-0400 Respiratory rate 20 /min Uche Porter Other [facility] Other 11-07-2022 15:00-0400 SaO2% (BldA) [Mass fraction] 96 % Uche Porter Other [facility] Other 11-07-2022 15:00-0400 Systolic blood pressure 128 mm[Hg] Uche Porter Other [facility] Other 09-04-2022 10:00-0400 Body height 181.61 cm Jared Leong Other [facility] Other 09-04-2022 10:00-0400 Body mass index (BMI) [Ratio] 33.97 kg/m2 Jared Leong Other [facility] Other 09-04-2022 10:00-0400 Body weight 112.04 kg Jared Leong Other [facility] Other 09-04-2022 10:00-0400 Diastolic blood pressure 72 mm[Hg] Jared Leong Other [facility] Other 09-04-2022 10:00-0400 SaO2% (BldA) [Mass fraction] 92 % Jared Leong Other [facility] Other 09-04-2022 10:00-0400 Systolic blood pressure 118 mm[Hg] Jared Leong Other [facility] Other 06-07-2022 09:01-0500 Body height 180.34 cm Jarett Finney Terese Work Phone: RP-Ezfsviuqmw-Dolyhu [place] 250 DO Work Phone: 06-07-2022 09:01-0500 Body mass index (BMI) [Ratio] 33.75 kg/m2 Jarett Gudino Work Phone: ID-Cqkqlkykzi-Ccedwd [place] 250 DO Work Phone: 06-07-2022 09:01-0500 Body surface area Derived from formula 2.29 m2 Jarett Gudino Work Phone: ER-Lmixznwmxa-Szgmfg [place] 250 DO Work Phone: 06-07-2022 09:01-0500 Body weight 109.77 kg Jarett Gudino Work Phone: EE-Qvtjarrkpm-Ydcfkh [place] 250 DO Work Phone: 06-07-2022 09:01-0500 Diastolic blood pressure 82 mm[Hg] Jarett Gudino Work Phone: TR-Zoewamhgkj-Lcuply [place] 250 DO Work Phone: 06-07-2022 09:01-0500 Heart rate 52 /min Jarett Gudino Work Phone: WE-Nnxatlxtzq-Wiyfvv [place] 250 DO Work Phone: 06-07-2022 09:01-0500 Systolic blood pressure 130 mm[Hg] Jarett Gudino Work Phone: JE-Iinhwhdagd-Wbbuna [place] 250 DO Work Phone: 12-06-2021 09:15-0400 Body height 180.34 cm Jarett Gudino Work Phone: -[facility] 250 DO Work Phone: 12-06-2021 09:15-0400 Body mass index (BMI) [Ratio] 32.78 kg/m2 Jarett Gudino Work Phone: -[facility] 250 DO Work Phone: 12-06-2021 09:15-0400 Body surface area Derived from formula 2.26 m2 Jarett Gudino Work Phone: [facility] 250 DO Work Phone: 12-06-2021 09:15-0400 Body weight 106.6 kg Jarett Gudino Work Phone: [facility] 250 DO Work Phone: 12-06-2021 09:15-0400 Diastolic blood pressure 70 mm[Hg] Jarett Gudino Work Phone: [facility] 250 DO Work Phone: 12-06-2021 09:15-0400 Heart rate 50 /min Jarett Gudino Work Phone: [facility] 250 DO Work Phone: 12-06-2021 09:15-0400 Systolic blood pressure 136 mm[Hg] Jarett Gudino Work Phone: [facility] 250 DO Work Phone: 09-09-2021 09:34-0400 Blood Pressure Location Jarett GUDINO [facility] 09-09-2021 09:34-0400 Body temperature 97.52 [degF] Jarett GUDINO [facility] 09-09-2021 09:34-0400 Diastolic blood pressure 74 mm[Hg] Jarett GUDINO [facility] 09-09-2021 09:34-0400 Heart rate 60 /min Jarett GUDINO [facility] 09-09-2021 09:34-0400 SaO2% (BldA) [Mass fraction] 95 % Jarett GUDINO [facility] 09-09-2021 09:34-0400 Systolic blood pressure 122 mm[Hg] Jarett GUDINO [facility] 05-24-2021 15:13-0500 Body height 180.34 cm Jarett Gudino Work Phone: [facility] 250 DO Work Phone: 05-24-2021 15:13-0500 Body mass index (BMI) [Ratio] 32.36 kg/m2 Jarett Gudino Work Phone: [facility] 250 DO Work Phone: 05-24-2021 15:13-0500 Body surface area Derived from formula 2.25 m2 Jarett Gudino Work Phone: [facility] 250 DO Work Phone: 05-24-2021 15:13-0500 Body weight 105.24 kg Jaertt Gudino Work Phone: [facility] 250 DO Work Phone: 05-24-2021 15:13-0500 Diastolic blood pressure 78 mm[Hg] Jarett Gudino Work Phone: [facility] 250 DO Work Phone: 05-24-2021 15:13-0500 Heart rate 61 /min Jarett Gudino Work Phone: [facility] 250 DO Work Phone: 05-24-2021 15:13-0500 Systolic blood pressure 119 mm[Hg] Jarett Gudino Work Phone: [facility] 250 DO Work Phone: Encounters Encounter Date Encounter Type Care Provider Facility Start: 12-17-2024 End: 12-17-2024 ambulatory Jared Leong MD Work Phone: [facility] Work Phone: Start: 12-17-2024 End: 12-17-2024 Patient encounter procedure Jared Leong MD -[facility] Work Phone: Start: 12-08-2024 Non-patient / Non-visit America Palmer CMA -[facility] Work Phone: Start: 12-05-2024 Non-patient / Non-visit Shon Sapp DO [facility] Work Phone: Start: 11-05-2024 End: 11-05-2024 ambulatory Jared Leong MD Work Phone: [facility] Work Phone: Start: 11-05-2024 End: 11-05-2024 Patient encounter procedure Jared Leong MD -[facility] Work Phone: Start: 09-11-2024 Non-patient / Non-visit Jared Leong MD Work Phone: [facility] Work Phone: Start: 09-11-2024 End: 09-11-2024 Admission to same day surgery center Jared Leong MD Work Phone: [facility] Work Phone: Start: 09-11-2024 End: 09-11-2024 ambulatory Jared Leong MD Work Phone: [facility] Work Phone: Start: 08-19-2024 End: 08-19-2024 Patient encounter procedure Jared Leong MD Work Phone: [facility] Work Phone: Start: 08-15-2024 End: 08-15-2024 Patient encounter procedure Jared Leong MD Work Phone: [facility] Work Phone: Start: 08-06-2024 End: 08-06-2024 Patient encounter procedure Jared Leong MD Work Phone: [facility] [address] Work Phone: Start: 08-06-2024 End: 08-06-2024 ambulatory Jared Leong MD Work Phone: [facility] Work Phone: Start: 08-01-2024 End: 08-01-2024 Office outpatient visit 25 minutes Ko Gamble MD Work Phone: [facility] Comment on above: Obesity, Class I, BM I 30-34.9 (Primary Dx); Paroxysmal atrial fibrillation (Multi); High risk medication use; High triglycerides; Palpitations; Mixed hyperlipidemia; PVC (premature ventricular contraction); BMI 30.0-30.9,adult; Current every day smoker Start: 08-01-2024 End: 08-01-2024 ambulatory [facility] Start: 07-25-2024 Non-patient / Non-visit Jared Leong MD Work Phone: [facility] Work Phone: Start: 06-17-2024 End: 06-17-2024 Patient encounter procedure Jared Leong MD Work Phone: [facility] Work Phone: Start: 06-14-2024 End: 06-14-2024 ambulatory Sandirenetta Collazo Facility:[facility] Start: 06-14-2024 End: 06-14-2024 Patient encounter procedure Jared Leong MD Work Phone: [facility] [place] Work Phone: Start: 01-04-2024 End: 01-04-2024 Office outpatient visit 25 minutes Ko Gamble MD Work Phone: [facility] Comment on above: Paroxysmal atrial fi brillation (Multi); PVC (premature ventricular contraction); TIA (transient ischemic attack); Mixed hyperlipidemia; High risk medication use; Stage 3a chronic kidney disease (Multi); BMI 30.0-30.9,adult; Current every day smoker Start: 01-04-2024 End: 01-04-2024 ambulatory [facility] Start: 09-25-2023 Patient encounter status Eva Leong MD Work Phone: [facility] Start: 08-07-2023 End: 08-07-2023 ambulatory MD Jared Leong Work Phone: [facility] Work Phone: Start: 08-07-2023 End: 08-07-2023 Patient encounter procedure MD Jared Leong Work Phone: [facility] [address] Work Phone: Start: 07-27-2023 Non-patient / Non-visit MD Maribel Leong Work Phone: [facility] Work Phone: Start: 06-12-2023 Non-patient / Non-visit MD Maribel Leong Work Phone: [facility] Work Phone: Start: 02-13-2023 End: 02-13-2023 ambulatory Uche Porter Other [facility] [employer] Other Start: 02-13-2023 Office outpatient vi sit 25 minutes Uche Porter [facility] Start: 02-09-2023 End: 02-09-2023 ambulatory Jared Leong Other [facility] [employer] Other Start: 02-09-2023 Office outpatient vi sit 15 minutes Jared Leong [facility] Start: 01-05-2023 Telephone encounter Jared garcia Work Phone: [facility] 250 DO Work Phone: Start: 12-12-2022 Office outpatient vi sit 25 minutes Jared Leong Work Phone: [facility] 250 DO Work Phone: Start: 12-12-[address] Jarett López Facility: Start: 11-07-2022 End: 11-07-2022 ambulatory Uche Catnguyễn Other [facility] Other Start: 11-07-2022 Office outpatient vi sit 15 minutes Kamalverto German [facility] Start: 10-30-2022 End: 10-30-2022 ambulatory Jared Leong Other [facility] Other Start: 10-30-2022 Telephone encounter Jared Leong [facility] Start: 09-29-2022 End: 09-29-2022 ambulatory Jared Leong Other [employer] Other Start: 09-29-2022 Telephone encounter Jared Leong [facility] Start: 09-21-2022 End: 09-21-2022 ambulatory Jared Leong Other [facility] Other Start: 09-21-2022 Telephone encounter Jared Leong [facility] Start: 09-04-2022 Encounter for genera l adult medical examination without abnormal findings Jared Leong [facility] Start: 09-04-2022 Initial preventive medicine new patient 40-64yrs Jared Leong [facility] Start: 09-04-2022 End: 09-05-[address] JARED LEONG [place] [facility] Other Start: 07-27-2022 End: 07-28-[address] JARETT GUDINO Facility:[facility] Start: 06-07-2022 End: 06-08-[address] KO GAMBLE Facility:[facility] Start: 06-07-2022 Office outpatient vi sit 25 minutes Jarett Gudino Work Phone: [facility]Yeweotvxil-Lhcirfkq 250 DO Work Phone: Start: 06-07-[address] Jarett Larios [facility] Terese Facility:[id number] Start: 05-24-2022 End: 05-25-[address] JARETT [...] sit 25 minutes Jarett Gudino Work Phone: [facility] 250 DO Work Phone: Start: 11-21-2021 End: 11-22-[address] JARETT Finney TERESE Facility: Start: 09-26-2021 End: 09-27-[address] JARETT Finney TERESE Facility: Start: 09-16-2021 End: 09-17-2021 ambulatory Jarett Finney TERESE Facility:[facility] Start: 09-09-2021 End: 09-10-2021 ambulatory Jarett GUDINO Facility:[facility] Start: 09-09-2021 End: 09-09-2021 Patient encounter procedure Jarett GUDINO [facility] Start: 09-09-2021 End: 09-09-2021 Well adult monitoring check done Jarett GUDINO [facility] Start: 05-24-2021 Office outpatient vi sit 25 minutes Jarett Gudino Work Phone: [facility] 250 DO Work Phone: Start: 03-11-2021 Patient encounter procedure Jarett Gudino Work Phone: [facility] 250 DO Work Phone: Start: 03-08-2021 Patient encounter procedure Jarett Gudino Work Phone: [facility] 250[address] [place] Work Phone: Start: 02-03-2021 Rx Renewal Jarett Finney Gran t Work Phone: [facility] 250[address] [place] Work Phone: Start: 12-26-2017 Patient encounter KO Post ility:[id number] Start: 02-20-2017 End: 02-21-2017 Ambulatory DEFAULT PHYSICIAN Facility:[facility] Procedures Date Procedure Procedure Detail Performing [...] Comment on above: Performed By: #### [facility] #### [facility] [address] [place] [address] Dr. Nabil Che Catheter ablation of arrhythmogenic focus Jarett Gudino Work Phone: Cholecystectomy Jarett duncan Work Phone: Colonoscopy Jarett Gudino Work Phone: Plan of Treatment Date Care Activity Detail Author Start: 04-01-2025 End: 04-01-2025 Patient encounter procedure 04/01/2025 3:10 PM EST Office Visit [facility] [address] [place] [address] [address] [place] [id number] Ko Gamble MD [address] [facility] [place] [address] [facility] Start: 12-22-2024 Influenza vaccination Influenz a Vaccine (Season Ended) [facility] Start: 09-11-2024 [facility] Start: 08-01-2024 End: 08-01-2024 Patient encounter procedure 08/01/2024 1:30 PM EDT Office Visit [address] [place] [id number] Ko Gamble MD [facility] [facility] [place] [address] [facility] Start: 06-17-[address] [facility] Work Phone: Start: 01-04-2024 End: 01-03-2025 Basic metabolic 2000 panel - Serum or Plasma Basic Metabolic Panel Lab Routine Paroxysmal atrial fibrillation (Multi) High risk medication use Stage 3a chronic kidney disease (Multi) Expected: 01/04/2024 (Approximate), Expires: 01/03/2025 [facility] Service Area Work Phone: Comment on above: Expected: 01/04/2024 (Approximate), Expires: 01/03/2025 Start: 01-04-2024 End: 01-03-2025 CBC panel - Blood by Automated count CBC Lab Routine Paroxysmal atrial fibrillation (Multi) High risk medication use Expected: 01/04/2024 (Approximate), Expires: 01/03/2025 [facility] Work Phone: Comment on above: Expected: 01/04/2024 (Approximate), Expires: 01/03/2025 Start: 12-23-2023 COVID-19 Vaccine ( season) COVID-19 Vaccine ( season) [facility] Start: 12-23-2023 COVID-19 Vaccine ( season) COVID-19 Vaccine ( season) [facility] Start: 12-23-2023 Influenza vaccination Influenza Vacc ine (#1) [facility] Start: 06-19-2023 FUV, Provider: Ko Gamble, Status: Pen, Time: 10:40 AM FUV, Provider: Ko Gamble, Status: Pen, Time: 10:40 AM -[facility] 250 DO Work Phone: Start: 12-12-2022 FUV, Provider: Ko Gamble, Status: Pen, Time: 9:50 AM FUV, Provider: Ko Gamble, Status: Pen, Time: 9:50 AM AR-Rjwlezztqx-Kxfybmm y 250 DO Work Phone: Start: 09-11-2022 ambulatory Ambulatory Facility:[facility] Start: 06-07-2022 FUV, Provider: Ko Gamble, Status: Pen, Time: 9:10 AM FUV, Provider: Ko Gamble, Status: Pen, Time: 9:10 AM -[facility] 250 DO Work Phone: Start: 12-06-2021 FUV, Provider: Ko Gamble, Status: Pen, Time: 9:10 AM FUV, Provider: Ko Gamble, Status: Pen, Time: 9:10 AM [facility] 250 DO Work Phone: Start: 2021 RSV High Risk: (Elde rly (60+) or Population) (1 - Risk 60-74 years 1-dose series) RSV High Risk: (Elderly (60+) or Population) (1 - Risk 60-74 years 1-dose series) [facility] Start: 2021 RSV patient s and/or patients aged 60+ years (1 - 1-dose 60+ series) RSV patients and/or patients aged 60+ years (1 - 1-dose 60+ series) [facility] Start: 05-24-2021 FUV, Provider: Ko Gamble, Status: Pen, Time: 3:00 PM FUV, Provider: Ko Gamble, Status: Pen, Time: 3:[address] [facility] [address] [place] Work Phone: Start: 03-11-2021 EVENT CARLITOS, Provider : YESSICA PETER PRODUCTION EDITOR 1,[id number], Status: Pen, Time: 10:30 AM EVENT CARLITOS, Provider: YESSICA PETER PRODUCTION EDITOR 1,[id number], Status: Pen, Time: 10:[address] [facility] 250[address] [place] Work Phone: Start: 07-05-2011 Zoster Vaccines (1 o f 2) Zoster Vaccines (1 of 2) [facility] Start: 04-23-2009 Pneumococcal vaccination Pneumococcal Vaccine (2 of 2 - PCV) [facility] Start: 04-23-2009 Pneumococcal Vaccine : Pediatrics (0 to 5 Years) and At-Risk Patients (6 to 64 Years) (2 of 2 - PCV) Pneumococcal Vaccine: Pediatrics (0 to 5 Years) and At-Risk Patients (6 to 64 Years) (2 of 2 - PCV) [facility] Start: 07-05-1983 DTaP/Tdap/Td Vaccine s (1 - Tdap) DTaP/Tdap/Td Vaccines (1 - Tdap) [facility] Start: 1980 Urine screening for protein CKD: Urine Protein Screening [facility] Start: 07-05-1979 Diabetes mellitus screening Diabetes Screening [facility] Start: 07-05-1979 Hepatitis C screening Hepatitis C Sc [facility] Start: 1962 MMR Vaccines (1 of 1 - Standard series) MMR Vaccines (1 of 1 - Standard series) [facility] Start: 1961 HIV screening HIV Screening [facility] Start: 1961 Lipid panel Lipid Panel [facility] Start: 1961 Screening for malign ant neoplasm of colon [facility] Start: 1961 Yearly Adult Physical Yearly Adult P hysical [facility] CT Sinuses WO contrast [facility] CT Unspecified body region [facility] Patient Education [facility] Hemo rrhoids Discharge Instructions Know your Meds [facility] Colon Polypectomy Discharge Instructions [facility] Work Phone: Patient referral [facility] Work Phone: XR Chest 2 Views [facility] Immunizations Immunization Date Immunization Notes Care Provider Chris longo 01-21-2014 influenza virus vaccine, unspecified formulation Jarett Finney Terese Work Phone: [facility] 250 DO Work Phone: 02-12-2013 influenza virus vaccine, unspecified formulation Jarett TERESE [facility] 04-23-2008 pneumococcal polysaccharide vaccine, 23 valzayra Arshad S [employer] Work Phone: [facility] 250 DO Work Phone: 04-23-2003 pneumococcal polysaccharide vaccine, 23 valent Jarett S [employer] Work Phone: [facility] DO Work Phone: influenza virus vaccine, unspecified formulation Jarett Finney [employer] Work Phone: [facility] 250 DO Work Phone: Comment on above: 2012 2011 2009 2008 NEGATED: Highlighted row has not occurred!05-20-2020 influenza virus vaccine, unspecified formulation Jarett GUDINO [facility] Payers Date Payer Category Payer Self-pay 2023 [employer] ( and others) [employer] [id number] 2023-Present [address] [place] [address] [id number] 2018 (LAUREN) [employer] [facility] [id number] 1961 Unknown [id number] 2.16.840.1.200375.3.579. 2.727 1961 Unknown [id number] 2.16.840.1.467022.3.579. 2.727 1961 Unknown [id number] 2.16.840.1.002952.3.579. 2.727 1961 Unknown [id number] 2.16.840.1.063705.3.579. 2.593 1961 Unknown [id number] 2.16.840.1.376927.3.579. 2.593 1961 Unknown [id number] 2.16.840.1.121788.3.579. 2.593 1961 Unknown [id number] 2.16.840.1.201535.3.579. 2.593 1961 Unknown [id number] 2.16.840.1.334846.3.579. 2.593 1961 Unknown [id number] 2.16.840.1.646230.3.579. 2.593 1961 Unknown [id number] 2.16.840.1.712927.3.579. 2.593 1961 Unknown [id number] 2.16.840.1.075228.3.579. 2.593 1961 Unknown [id number] 2.16.840.1.404214.3.579. 2.593 1961 Unknown [id number] 2.16.840.1.579637.3.579. 2.593 1961 Unknown [id number] 2.16.840.1.263866.3.579. 2.593 1961 Unknown [id number] 2.16.840.1.514443.3.579. 2.593 1961 Unknown [id number] 2.16.840.1.232715.3.579. 2.356 1961 Unknown [id number] 2.16.840.1.920203.3.579. 2.356 1961 Unknown [id number] 2.16.840.1.381103.3.579. 2.1244 1961 Unknown [id number] 2.16.840.1.436844.3.579. 2.1244 1959 [employer] ( and others) [id number] Unknown Unknown [id number] 2.16.840.1.564991.3.579. 2.531 Unknown [id number] 2.16.840.1.899798.3.579. 2.531 Unknown [id number] 2.16.840.1.909798.3.579. 2.531 Social History Date Type Detail Facility Start: 01-04-2024 End: 08-01-2024 Daily caffeine consumption Daily caffeine consumption [facility] 250 DO Work Phone: Comment on above: 1-2 mixed drinks a m onth; 1 ppd; 1-2 mixed drinks a w diomede; 1 decaff coffee; Start: 09-09-2021 Tobacco smoking status Heavy t obacco smoker (finding) [facility] Tobacco smoking status Never [facility] Start: 01-04-2024 End: 08-01-2024 Sex Assigned At Male RuthYaakovPrentiss [facility] [place] Start: 1960 Sex Assigned At Male F [facility] Start: 01-04-2024 End: 09-11-2024 Tobacco smoking status NHIS Smokes tobacco daily [facility] History of tobacco use Cigarette Smoker [facility] Work Phone: Start: 01-04-2024 Tobacco use and exposure Smokeless tobacco non-user [facility] Work Phone: Start: 01-04-2024 End: 08-01-2024 Alcoholic beverage intake Current drinker of alcohol (finding) [facility] Work Phone: Start: 06-19-2023 Alcohol Comment occasionally [facility] Work Phone: Start: 1960 Sex assigned at Not on file [facility] Work Phone: Start: 12-25-2023 End: 08-01-2024 Exposure to SARS-CoV-2 (event) Not sure [facility] Start: 08-14-2023 End: 09-11-2024 Tobacco smoking status NHIS Smoker (finding) [facility] Start: 08-07-2024 End: 09-11-2024 Sex Male (finding) [facility] Goals Date Patient Goal Desired Activity /State Clinical Notes 08-25-2021 to 11-05-2024 Note Date & Type Note Facility 11-05-2024 Evaluation note Diagnosis Onset Date Resolution Chronic maxillary sinusitis acute November 05, 2024 1:03pm Seasonal affective disorder in remission acute November 05, 2024 1:03pm [facility] Work Phone: 1(201) 637-339905-22-2025 History and physical [place] [id number] Gastroenterology H&P Signed Patient: Abhinav Felix MR#: [id number] : 1960 Acct:[id number] Age/Sex: 64 / M Adm Date: Loc: Room: Type: [facility] Attending Dr: Chas Dean MD Copies to: [...] Dean MD 09/11/2456 Signed By: 09/11/24 0856 [facility]05-22-[address] [address] Colonoscopy Procedure Report Signed Patient: Abhinav Felix MR#: [id number] : 1960 Acct:[id number] Age/Sex: 64 / M Adm Date: Loc: Room: Type: [facility] Attending Dr: Chas Dean MD Copies to: [...] was slowly withdrawnwith the findings as below. [place] bowel prep score was good. 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, 2024 10:00am Lung nodule acute August 19, 2 025 2:18pm Tobacco use disorder acute Apri l 2024 2:18pm [facility] Work Phone: 1(394) 469-144704-25-2025 Evaluation note* Diagnosis Onset Date Resolution Status [...] maxillary sinusitis acute November 05, 2024 1:03pm [facility] Work Phone: 1(520) 836-250004-16-2025 [facility] [place] [address] [place] [address] CT Scan Report Signed Patient: Abhinav Felix MR#: [id number] : 1960 Acct:[id number] Age/Sex: 64 / M ADM Date: 5 Loc: [facility] Room: Type: [facility] Attending Dr: Kelechi Martin MD Copies to: [...] Lockwood Jr., D.O.08/06/2024 12:58 PM Dictation Location: [facility]- Transcribed By: [facility] 08/06/24 1258 Dictated By: Yannick Lockwood Jr, DO 08/06/24 1255 Signed By: 08/06/24 1258 [facility]04-11-2025 History of Present illness Narrative * Ko [...] currently on pravastatin, recent lab data from [facility] were requested. Review of Systems Constitutional: Positive [...] by mouth. As directed as directed by [facility], Disp: , Rfl: Assessment/Plan 1. Paroxysmal atrial [...] exam, discussion and plan. documented in this [facility] Work Phone: 1(756) 924-457104-11-2025 Instructions* Patient Instructions* Nicolasa Bradshaw RN - [...] Provided instructions on exercise. documented in this [facility] Work Phone: 1(293) 680-413102-22-2025 Evaluation note* Diagnosis Onset Date Resolution Status Admit Date Dizziness acute June 14, 2024 9:03am Shortness of breath acute Febru [email or web address] 9:03am Viral URI with cough acute 2024 9:03am Colon cancer screening acute Fe bruary 2024 10:45am Post-cholecystectomy syndrome acute June 17, 2024 10:45am Shortness of breath acute Febru [email or web address] 10:45am Tobacco use disorder acute 2024 10:45am [facility] Work Phone: 1(515) 792-861909-13-2024 History of Present illness Narrative* Ko Gamble [...] by mouth. As directed as directed by [facility], Disp: , Rfl: Assessment/Plan 1. Paroxysmal atrial [...] exam, discussion and plan. [facility]: 1(416) 355-797409-13-2024 Instructions* Patient Instructions* Ladonna Zendejas LPN - [...] through Care Everywhere. * Heart Healthy Diet (Malaysian) [facility] Work [facility]: 1(588) 152-991410-24-2023 Evaluation note* Encounter Date Diagnosis Assessment Notes Treatment Notes Treatment Clinical Notes Jan, Lung nodule (ICD-10 - R91.1) Jan, Tobacco use disorder (ICD-10 - F17.200) [facility] Other 10-20-2023 Evaluation note* Encounter Date Diagnosis Assessment Notes Treatment Notes Treatment Clinical Notes Jan, Benign paroxysmal positional vertigo, unspecified laterality (ICD-10 - H81.10) Order printed for PT. Pt will call and set up appt. Jan, Mixed hyperlipidemia (ICD-10 - E78.2) Recheck labs. Pt had adverse side effects to crestor. [facility] Other 07-18-2023 Evaluation note* Encounter Date Diagnosis Assessment Notes Treatment Notes Treatment Clinical Notes Oct, Lung nodule (ICD-10 - R91.1) Oct, Nicotine dependence, cigarettes, uncomplicated (ICD-10 - F17.210) [facility] Other 05-15-2023 Evaluation note* Encounter Date Diagnosis [...] Dr. Finley - will set up with [facility] [address] August, Nicotine dependence, cigarettes, uncomplicated (ICD-10 - F17.210) agrees to LDCT and chantix. discussed side effects of chantix. August, Screening for colon cancer (ICD-10 - Z12.11) agrees to cologuard August, GERD without esophagitis (ICD-10 - K21.9) requests refill of Aciphex. [facility] Other 05-05-2022 Hospital Discharge instructions Follow Up Care 08/25/2021 11:29:08 With:Jarett GUDINO DO, FAM Address: [address] [place] [address]- When:Within 1 Year(s) [facility] Evaluation + Plan note Future Appointments Appointment Date:09/16/2021 04:00:00 PM Scheduled [facility]: [facility] () Appointment Date:09/11/2022 10:00:00 AM Scheduled Provider:Jarett GUDINO DO Location:[facility] Appointment Type: Open Future Scheduled Tests Laboratory* PSA Screen, Total 08/29/21 * CBC w/ Auto Diff 08/29/21 * Comprehensive Metabolic Panel 08/29/21 * Lipid Panel 08/29/21 Radiology* MRI Brain w/o Contrast 09/16/21 [facility] Evaluation noteNo InformationNortAirDroids Other Evaluation noteNo assessment information available [facility] Work Phone: Evaluation note* Diagnosis Paroxysmal atrial fibrillation (Multi) Atrial fibrillation PVC (premature ventricular contraction) Other premature beats TIA (transient ischemic attack) Unspecified transient cerebral ischemia Mixed hyperlipidemia High risk medication use Stage 3a chronic kidney disease (Multi) BMI 30.0-30.9,adult Current every day smoker documented in this encounter [facility] Work Phone: Evaluation note* Diagnosis Obesity, Class I, BMI 30-34.9- Primary Paroxysmal atrial fibrillation (Multi) Atrial fibrillation High risk medication use High triglycerides Unspecified disorder of lipoid metabolism Palpitations Mixed hyperlipidemia PVC (premature ventricular contraction) Other premature beats BMI 30.0-30.9,adult Current every day smoker documented in this encounter [facility] Work Phone: History and physical note Author Chas Dean [facility] Note Date/Time September 11, 2024 9:50a m [facility] [address] [place] [address] Gastroenterology H&P Signed Patient: Abhinav Felix MR#: [id number] : 1960 Acct:[id number] Age/Sex: 64 / M Adm Date: 5 Loc: Room: Type: [facility] Attending Dr: Chas Dean MD Copies to: [...] 0856 Signed By: <Electronically signed by Chas Dean MD> 09/11/24 0856 [facility] Work Phone: History general Narrative - Reported* Type Description Date Medical History Afib Medical History IBS Medical History Protruding disc C4-C5 Surgical History Cholecystectomy 2005 Surgical History Ablation on heart Surgical History Colonoscopy - Dr. Estes 2006 [facility] Other Hospital course Narrative No data available for this section [facility] Reason for referral (narrative)No reason for [facility] Work [facility]: Reason for visit Narrative* [...] Ko Gamble MD * Enrollment sent to: [employer] * Monitor number [id number] applied. * Holter monitor printed and placed on Dr. Higinio Tyson MD desk to dictate. -[facility] [employer] Hudson DO Work Phone: Summary Purpose Family History [...] He has active lifestyle and is in usp at the present time. His examination is [...] in 6 months. * Ko Gamble MD, [facility] * ABHINAV FELIX is being seen [...] He has active lifestyle and is in usp at the present time. His examination is [...] in 6 months. * Ko Gamble MD, [facility] * ABHINAV FELIX is being seen for a month follow-up of. * Patient is in the office for follow-up for the problems noted below. He retired last year and is trying to quit smoking but has not succeeded yet. He denies any palpitations since he started taking magnesium [id number]. He is on Multaq and his rhythm [...] Procedures ECG 12 Lead Ko Gamble MD [address] [place] [address] [address], [address] [address] Referral ID Status Reason Start Date Expiration Date V isits Requested Visits Authorized [id number] Authorized 01/04/2024 01/03/2025 1 1 Specialty Diagnoses / Procedures Referred By Aditya t Referred To Contact Cardiology Diagnoses Paroxysmal atrial fibrillation (Multi) Procedures Follow Up In Cardiology Ko Gamble MD [address] [place] [address] [address], [address] [address] Ko Gamble MD [address] [place] [address] [address], [address] [address] Referral ID Status Reason Start Date Expiration Date V isits Requested Visits Authorized [id number] Authorized 01/04/2024 01/03/2025 1 1 Additional Source Comments (unrecognized sect ion and content) No Status Records FoundNo Status Records FoundNo Status Records FoundNo Status Records FoundNo Status Records FoundNo Status Records FoundNo Status Records FoundNo Status Records FoundNo Status Records Found INFORMATION SOURCE (unrecogn ized section and content) DATE CREATED AUTHOR 10/16/2017 [facility] DATE CREATED AUTHOR AUTHOR'S ORGANIZ ATION 01/30/2018 [facility] DATE CREATED AUTHOR AUTHOR'S ORGANIZ ATION 02/14/2019 [facility] DATE CREATED AUTHOR AUTHOR'S ORGANIZ ATION 07/31/2022 Ruth Prentiss [facility] DATE CREATED AUTHOR AUTHOR'S ORGANIZ ATION 09/05/2022 [facility] DATE CREATED AUTHOR AUTHOR'S ORGANIZ ATION 12/13/2022 [facility] DATE CREATED AUTHOR AUTHOR'S ORGANIZ ATION 12/13/2022 [facility] DATE CREATED AUTHOR AUTHOR'S ORGANIZ ATION 08/07/2024 [facility] DATE CREATED AUTHOR AUTHOR'S ORGANIZ ATION 09/21/2024 [facility] Reason for Visit (unrecogniz ed section and content) Reason Comments Follow-up 6mo Specialty Diagnoses / Procedures Referred By Aditya stevens Referred To Contact Cardiology Diagnoses Paroxysmal atrial fibrillation (Multi) Procedures Follow Up In Cardiology Ko Gamble MD [address] [facility] 2, [address] [address] Ko Gamble MD [address] [place] [address] [address], [address] [address] Referral ID Status Reason Start Date Expiration Date V isits Requested Visits Authorized [id number] Authorized 06/19/2023 06/18/2024 1 1 Reason Comments Follow-up Patient here for 6 m [facility] follow up, c/o occasional irregular heartbeat with dizziness and fatigue, will last approximately a day. Specialty Diagnoses / Procedures Referred By Aditya stevens Referred To Contact Cardiology Diagnoses Paroxysmal atrial fibrillation (Multi) Procedures Follow Up In Cardiology [facility] 2, [place] [address] [place] [address] Phone: tel: fax: Ko Gamble MD [address] [facility] 2, [address] [place] [address] Phone: tel: fax: Referral ID Status Reason Start Date Expiration Date V isits Requested Visits Authorized [id number] Authorized 01/04/2024 01/03/2025 1 1 Care Teams [...] Team Status: Inactive Member Role Status Dates aJred Leong MD Primary Care Provide r, Attending [...] August 07, 2023 End: August 07, 2023 Physical Therapy Teacher Relationship Specialty Start Date End Date Jared Leong MD PCP - General Family Medicine 06/19/23 Ko Gamble MD [address] [place] [address] [address], [address] [address] Consulting Physician Cardiology 06/19/23 Team Status: Active [...] BE BASED ON THE PRIMARY CLINICAL RECORDS. [facility] [employer] provides no warranty or guarantee of the accuracy or completeness of information in this document.
== END 2025-01-01 09:06 | disposition home or self-care (01) ==
LOC: MRI 09:05
PROVIDERS: PCP Family Medicine; Visit Provider Family Medicine
DX: R90.89 Other abnormal findings on diagnostic imaging of central nervous system (principal); R51.9 Headache, unspecified; H53.2 Diplopia
CPT/HCPCS: 70553; A9575

== ENCOUNTER 2025-02-10 09:28 | Outpatient (OUT) | payer OTHER, SELFPAY ==
--- OUTSIDE RECORDS SUMMARY | 2025-02-09 10:31 | XMS_ITS | Continuity of Care Document ---
Author Organization [facility] Address [address] [place] [address] Phone Care Team Providers Care Public Works Technician Name Role Phone Regi Chapman MD Primary Care Provider Shon Rosario DO Attending Provider America Gallegos CMA Attending Provider Regi Booth MD Attending Provider Aubree Louise DO Attending Provider Care Teams Patient Care Team Team Status: Active Member Role/Relationship Status Dates Regi Chapman MD Primary Care Provider Active Visit Care Team Team Status: Active Member Role/Relationship Status Dates Regi Chapman MD Primary Care Provider Active Start: December 05, 2024 Shon Rosario DOAttsonia ProviderActiveStart: December 05, 2024 Visit Care Team Team Status: Active Member Role/Relationship Status Dates Regi Chapman MD Primary Care Provider Active Start: December 08, 2024 America Gallegos CMAAttending ProviderActiveStart: December 08, 2024 Visit Care Team Team Status: Inactive Member Role/Relationship Status Dates Regi Chapman MD Primary Care Provider Active Start: December 17, 2024 End: December 17, 2024Lex Acosta ProviderActiveStart: December 17, 2024 End: December 17, 2024 Visit Care Team Team Status: Active Member Role/Relationship Status Dates eRgi Chapman MD Primary Care Provider Active Start: December 24, 2024 Lex Acosta ProviderActiveStart: December 24, 2024 Patient Care Team Team Status: Inactive Member Role/Relationship Status Dates Regi Chapman MD Primary Care Provider Active Start: February 09, 2025 End: February 09, 2025Diane Crawleyending ProviderActiveStart: February 09, 2025 End: February 09, 2025 Chief Complaint and Reason for Visit Chief Complaint Admit Date Amb Documentation December 08, 2024 11 :24am ER F/U [facility], Eyes Crossed December 17 11:12am 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 February 09, 2025 1:29pm Reason for Visit Admit Date Abnormal CT of brain December 17, 2024 1 1:12am Diplopia December 17, 2024 11 :12am Headache December 17, 2024 11 :12am Lung nodule December 17, 2024 11 :12am Atrial fibrillation February 09, 2025 1 :29pm Diplopia February 09, 2025 1 :29pm Hypersomnia February 09, 2025 1 :29pm Trigeminal neuralgia February 09, 2025 1:29pm Allergies, Adverse Reactions, Alerts Allergen Type Severity Reaction Last Updated Verified Status Comments dabigatran etexilate Allergy Unknown bleeding December 17, 2024 11:38am Yes Active PenicillinsAllergyUnknownanaphylaxisAugust 2024 11:38amYesActivebupropion Adverse ReactionUnknownDepressionAugust 2024 11:38amYesActiveTook wellbutrin for smoking cessation and felt very bad w depressive symptoms. Social History Smoking Status Status Start Date End Date Date of Observa tion Smokes tobacco daily (finding) September 11, 2024 7:23am Observation Status Observation Response Date of Response Legal Sex [facility] (finding) 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, 2024 10: 37am Unknown Active Screening PSA (prostate spec ific antigen) September 12, 2023 11:14am Unknown Active Colon cancer screening June 17, 2024 12:23pm Unk nown Active Diplopia December 17, 2024 12:08pm Unknown Ac tive Viral URI with cough June 14, 2024 11:12am Unkno wn Active Chronic maxillary sinusitis November 05, 2024 1:41pm Unk nown Active Shortness of breath June 14, 2024 10:23am Unknow n Active Dizziness June 14, 2024 11:12am Unknown Active Seasonal affective disorder in remission November 05, 2024 2:34pm Unknown Active Atrial fibrillation February 09, 2025 2:23pm Unknown Active Wellness examination September 25, 2023 9:41pm Unknown Active Headache December 17, 2024 12:08pm Unknown Ac tive Hypersomnia February 09, 2025 2:23pm Unknown Ac tive Lung nodule August 07, 2023 11:32am Unknown Act montez Tobacco use disorder August 07, 2023 11:32am Unknown Active Trigeminal neuralgia February 09, 2025 2:21pm Unknown Active Weight loss September 12, 2023 11:14am Unknown Activ e GERD without esophagitis August 07, 2023 11:32am Unkn own Active Bilateral hip pain September 12, 2023 11:12am Unknown Active Abnormal CT of brain December 17, 2024 12:08pm Unknown Active Intermittent atrial fibrillation August 07, 2023 11:3 2am Unknown Active 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, 2024 12:2 2pm Unknown Active Medications Medication Status Dose Units Route Directions Qty Days Refills S tart Date Stop Date End Date Reason(s) Instructions Adherence Bupropion Hcl 150 mg tablet sustained-release 12 hr Discontinued 150 MG PO Twice daily 180 90 0 August 01, 2023 8:55am August 14, 2023 3:05pmRabeprazole 20 mg tablet,delayed release (DR/EC) Discontinued0.ROUTE.GAEYTHB934Jlx 2023 12:41pmOctober 2023 8:54amTAKE 1 TABLET DAILYWarfarin 4 mg sknvxtKuufbkxelmkz0QSRWTmzpa477Olxa 2023 12:16pmJuly 2023 1:09pmWarfarin 4 mg sjsyqxNwgghhqmpjgw5DBPIWohib739Swzg 2023 1:09pmSeptember 2023 1:39pmWarfarin 4 mg xfinycTkklmmicgwdi8MMVQ Cmqsx419Kqeelkhjv 2023 1:39pmNovember 2023 8:49amRabeprazole 20 mg tablet,delayed release (DR/EC)Discontinued0.ROUTE.ITXFGJR299Mskrqrr 2023 8:54amAugust 2024 9:53amTAKE 1 TABLET DAILYWarfarin 4 mg tabletActive0 .ROUTE.DNMQXYL859Ooluihxt 2023 8:49amTAKE 1 TABLET DAILYComplies with drug therapyRabeprazole 20 mg tablet,delayed release (DR/EC)Discontinued0.ROUTE .ONFJFUZ733Fioxzz 2024 9:53amOctober 2024 2:02pmTAKE 1 TABLET DAILY Cholestyramine 4 gram imawdfSzxsnysjwody6DSCDMp DirectedMay 2024 12:00am February 09, 2025 2:02pmWarfarin 5 mg nevntkFcqdrkeqaran9OMFYZutrrRonrj 2023 12:00amApril 2023 10:48pmBupropion Hcl 150 mg tablet sustained-release 12 zhBvfgtrrhzdwa675ULIJYfeoiZhnce 2023 12:00amApril 2023 10:48pm Bupropion Hcl 150 mg tablet sustained-release 12 hlEjusduyeljcp009DQSZQoagc241 July 27, 2023 10:47pmApril 2023 8:56amWarfarin 5 mg tabletDiscontinued5 LSUSRdofk664Vvvll 5th, 2024 10:48pmJune 2023 12:17pmAlbuterol Sulfate 90 mcg/actuation HFA aerosol waalmajCsjyievtfmtw4ZREYAJKJMOZEXFHBGYS 4-6 HOURS as needed for shortness of breath or wheezing8.50February 2024 1:00amApril 2024 10:05amPravastatin 20 mg kyyohiDqqcgv20YFKRUbxiaSeoknkb 2024 12:00amComplies with drug therapyOxcarbazepine (Trileptal) 300 mg tabletActive0 PO.EMWAIAC812Geymeoz 2024 12:00am1/2 bid x 2 then 1 po bid orally;Complies with drug therapyColestipol 5 gram granulesDiscontinuedGMPOAs DirectedApril 2023 12:00amMay 2024 8:47amFreeTextSig: as directed Orally; Note: Source Status: Taking; Provider: Ari Deluna ENebivolol 10 mg xlvrfkKzbrpf8ZNT PODailyApril 2023 12:00amFreeTextSi tablet Orally Once a day; Note: Source Status: Taking; Provider: German Ivey ( )Complies with drug therapyDronedarone 400 mg pucbmvZfbmxvupejqt395SMFKVtcit dailyApril 2023 12:00amApril 2024 10:06amFreeTextSi tablet with meals Orally Twice a day; Note: Source Status: Taking; Provider: German Ivey ( )Rabeprazole 20 mg tablet,delayed release (DR/EC)Enscetmykexd6CDQMB DailyApril 2023 12:00amApril 2023 11:29amFreeTextSi tablet Orally Once a day; Note: Source Status: Taking; Refills: 3; Provider: Ari flores ERabeprazole (Aciphex) 20 mg tablet,delayed release (DR/EC)Vdxasvocgknc17KV PODailyApril 2023 12:00amMay 2023 12:41pmPravastatin 40 mg tablet Wshvkngcorao89ZRYSSxnboGkafn 2023 12:00amOctober 2024 1:59pm Dronedarone (Multaq) 400 mg hrhhxmZvgczc918MUHBLaomm dailyApril 2024 12:00ammust administer with a meal/foodComplies with drug therapySod Picosulf- Mag Ox-Citric Ac (Clenpiq) 10 mg-3.5 gram- 12 gram/175 mL solutionDiscontinued 566KOANKoiof80550Jipiy 2024 12:00amMay 2024 7:30amTake first dose at 3pm evening before colonoscopy; second dose at 9 pm night before colonoscopy Relevant Diagnostic Tests and/or Laboratory Data Laboratory Results Test Collection Date/Time Result Date/Time Result Interpretation Reference Range Result Comment Performing Site Anion Gap December 05, 2024 10:55am December 05, 2024 10: 55am 13.2 Basophils # (Auto)December 05, 2024 10:55amAugust 2024 10:55am0.1 10 3/uL 0.0-0.1Prothromb Time International RatioSeptember 2024 10:53amSeptember 2024 10:53am2.77DESIRED INR:2.0-3.0 CONDITIONS NOT LISTED BELOW2.5-3.5 FOR PROSTHETIC HEART VALVE REPLACEMENT2.5-3.5 RECURRENT THROMBOSISBUN/Creatinine RatioAu2024 10:55amAugu2024 10:55am11.2Basophils (%) (Auto) December 05, 2024 10:55amAugu2024 10:55am0.8 %0.2-2.0Prothrombin Time December 24, 2024 10:53amSeptember 2024 10:53am26.5 secAbove high normal 9.0-11.6Blood Urea NitrogenAugust 2024 10:55amAugu2024 10:55am 11.0 mg/dL7.0-18.0Eosinophils # (Auto)December 05, 2024 10:55amAugust 2024 10:55am0.2 10 3/uL0.0-0.7Calcium LevelAu2024 10:55amAugust 2024 10:55am8.4 mg/dLBelow low normal8.5-10.1Eosinophils (%) (Auto)December 05, 2024 10:55amAugust 2024 10:55am2.5 %0.9-7.0Chloride LevelAugust 2024 10:55amAugust 2024 10:97qd414 mmol/W65-534KpcuslhagkMtlutz 15th, 2025 10:55amAugust 2024 10:55am48.2 %42.0-54.0Carbon Dioxide LevelAugust 2024 10:55amAugust 2024 10:55am26.9 mmol/L21.0-32.0HemoglobinAugust 2024 10:55amAugu2024 10:55am16.7 g/dL14.0-18.0CreatinineAugu2024 10:55amAugust 2024 10:55am0.98 mg/dL0.70-1.30Immature Granulocyte # (Auto)December 05, 2024 10:55amAugust 2024 10:55am0.03 10 3/uL0.00-0.03 Estimated GFR ()December 05, 2024 10:55amAugust 2024 10:55am>60>=60 mL/min/1.73m 2Immature Granulocyte % (Auto)December 05, 2024 10:55amAugust 2024 10:55am0.4 %0.0-0.5Estimated GFR (Non- December 05, 2024 10:55amAugust 2024 10:55am>60>=60 mL/min/1.73m 2 Lymphocytes # (Auto)December 05, 2024 10:55amAugu2024 10:55am1.7 10 3/uL1.2-3.8Glucose LevelAugust 2024 10:55amAugust 2024 10:85xi510 mg/dLAbove high -616Qcgzbcgdgxd (%) (Auto)December 05, 2024 10:55am December 05, 2024 10:55am22.4 %20.5-60.0Potassium LevelAugust 2024 10:55am December 05, 2024 10:55am4.1 mmol/L3.5-5.1Mean Corpuscular HemoglobinAugust 2024 10:55amAugu2024 10:55am31.0 pg25.9-34.0Sodium LevelAugust 2024 10:55amAugu2024 10:56nn798 mmol/D027-426Ejeb Corpuscular Hemoglobin ConcentAugust 2024 10:55amAugu2024 10:55am34.6 g/dL 29.9-35.2Mean Corpuscular VolumeAugust 2024 10:55amAugu2024 10:55am89.4 fL80.0-94.0Monocytes # (Auto)December 05, 2024 10:55amAugu2024 10:55am0.8 10 3/uL0.3-0.8Monocytes (%) (Auto)December 05, 2024 10:55am December 05, 2024 10:55am10.3 %1.7-12.0Mean Platelet VolumeAugust 2024 10:55amAugu2024 10:55am10.5 fL9.5-13.5Neutrophils # (Auto)December 05, 2024 10:55amAugu2024 10:55am4.8 10 3/uL1.4-6.5Neutrophils (%) (Auto) December 05, 2024 10:552024 10:55am63.6 %43.0-75.0Platelet Count December 05, 2024 10:55amAugu2024 10:98cy436 10 3/lE859-038Qve Blood CountAu2024 10:55amAugu2024 10:55am5.39 10 6/uL4.70-6.10Red Cell Distribution WidthAut 2024 10:552024 10:55am12.6 % 11.0-15.0Corrected White Blood CountAugust 2024 10:55amAugu2024 10:55am7.6 10 3/uL4.0-11.0 Vital Signs Vital Reading Result Reference Range Collection Date/Time Height 71 [in_i] December 17, 2024 11:34yjBxazdd962.60 kgAugust 2024 11:35amHeart Rate56 /xmt68-745Ebvxbu 2024 11:35amBP Grhelhxs814 mm[Hg]100-140August 2024 11:35amBP Ehbprlbwp55 mm[Hg]60-100August 2024 11:35amBMI (Body Mass Index)31.2 kg/k2Yfzrid 2024 11:45ouCaegkx68 [in_i]February 09, 2025 2:55yvVxiouy67.79 kgOctm[facility] 2024 2:00pmHeart Rate89 /fyr05-069[facility] 2024 2:00pmOxygen saturation by Pulse nrryznvn93 %95-100[facility] 2024 2:00pmBP Rpzdfxwl285 mm[Hg]100-140Oct2024 2:00pmBP Cycqtmhso36 mm[Hg]60-100[facility] 2024 2:00pmBMI (Body Mass Index)30.7 kg/r8Uavzhlv 2024 2:00pm Advance Directives Advance Directive Response Recorded Date/ Time Advance Directives Yes September 11 10:21am Insurance Providers Guarantor Amos Lezama Address [address] [facility] [address]Ucenrqs Info.Home Phone: Payer Group Member ID Coverage Type Subscriber Relationship to Subscriber Effective Date Expiration Date [facility] [employer] [id number] Encounters Encounter Location(s) Arrival/Admit Date Discharge/Departure Date Discharge/Departure Disposition Provider(s) Non-patient / Non-visit -[facility] ugust 2024 10:55am Senait Otto-[facility] 11:24amAmerica Gallegos CMADeparted Physician/Provider Office Visit-[facility] 2024 11:12amAugust 2024 12:04pmDischarged to home care or self care (routine discharge)Mark Acosta-patient / Qen-smieu-[place]September 2024 10:53amMaGENEVA Alvarezeparted Physician/Provider Office Visit-[facility] Neurology [facility] 1:[facility]pm[facility] 2024 2:30pmDischarged to home care or self care (routine discharge)Aubree Louise , Recent Diagnosis Onset Date Admit Date Abnormal CT of brain Unknown November 11:12am Diplopia Unknown December 17 11:12am Headache Unknown December 17 11:12am Lung nodule Unknown December 17 11:12am Atrial fibrillation Unknown January 1:29pm Diplopia Unknown February 09 1:29pm Hypersomnia Unknown February 09 1:29pm Trigeminal neuralgia Unknown January 1:29pm Assessments Diagnosis Onset Date Resolution Status Admit Date Abnormal CT of brain acuteAugust 2024 11:12amDiplopiaacuteAugust 2024 11:12amHeadache acuteAugust 2024 11:12amLung noduleacuteAugust 2024 11:12amAtrial fibrillationacuteOctober 2024 1:29pmDiplopiaacuteOctober 2024 1:29pm HypersomniaacuteOct2024 1:29pmTrigeminal neuralgiaacuteOctober 2024 1:29pm Plan of Treatment Author Regi Chapman [facility] HospitalAuthoredAuacoma[facility] 2024 12:18pmCheck MRI w and w/out contrast to followup on the abnormality in the 4th ventricle. Will share information w his display designer outside. Consider Neurology referral based on the MRI Results. Dr. Martin follows his lung nodule and will forward CT in that direction as well. Future Tests Future scheduled test information is unavailable Pending Tests Test Name Ordered Date Scheduled Date MR head/brain wo/w con December 17, 2024 12:07pm Future Visits Future appointment information is unavailable Future Procedures Procedure Name Ordered Date Scheduled Date C-Reactive Protein February 09, 2025 2:21pm Erythrocyte Sedimentation RateOct2024 2:21pmSLP polysom procedure February 09, 2025 2:22pm Future Medications Future medication information is unavailable Patient Instructions Patient instructions are unavailable
--- OUTSIDE RECORDS SUMMARY | 2025-02-10 09:33 | XMS_ITS | Clinical Summary ---
Author Organization [facility] Address [address] [place] [address] Phone Care Team Providers Care Traveling Representative Name Role Phone Regi Chapman MD Primary Care Provider [phone] Ko Gamble MD Unavailable [phone] Allergies Active AllergyReactionsCriticalityNoted DateCommentsRosuvastatinMyalgia 06/19/2023abigatran YgosyhxvtXuvoyuah97/12/9268FpcpwwwjauoUdyemmi47/12/2024 Medications MedicationSigDispense QuantityRefillsLast FilledStart DateEnd DateStatus RABEprazole (Aciphex) EC tablet Take 1 tablet (20 mg) by mouth once daily.05/21/2021ctive warfarin (Coumadin) 5 mg tablet Take 1 tablet (5 mg) by mouth. As directed as [facility]Active pravastatin (Pravachol) 20 mg tablet Indications:High triglyceridesTake 1 tablet (20 mg) by mouth once daily in the evening. 90 tablet 5Active bisoprolol (Zebeta) 5 mg tablet Indications:PalpitationsTAKE 1 TABLET DAILY (STOP BYSTOLIC NEW START) 90 tablet ctive Multaq 400 mg tablet Indications:Paroxysmal atrial fibrillation (Multi)TAKE 1 TABLET TWICE A DAY WITH MEALS 180 tablet 5Active Active Problems ProblemNoted DateDiagnosed DateMixed ocpwinjhxsuhbt37/13/2024High risk medication use01/04/2024MI 30.0-30.9,adult01/04/2024urrent every day smoker 05/04/2023ell palsy04/09/2023High jlfrvkayvuvda56/18/7562Gistxajqrcxk37/18/2023 Paroxysmal atrial /18/2023PVC (premature ventricular contraction) 04/09/2023Stage 3a chronic kidney ktvyykm9604/09/2023TIA (transient ischemic attack)04/09/2023Vision avrmcti4104/09/2023 Immunizations ImmunizationAdministration DatesNext DueInfluenza, Wwpgcqfyjvz18/23/2013 Pneumococcal polysaccharide vaccine, 23-valent, age 2 years and older (PNEUMOVAX 23)04/23/2008,04/23/2003 Social History Tobacco UseTypesPacks/DayYears UsedDateSmoking Tobacco: Every DayCigarettes Smokeless Tobacco: Never Tobacco Cessation:Ready to Q uit: No; Counseling Given: Yes Alcohol UseStandard Drinks/WeekCommentsYes0 (1 standard drink = 0.6 oz pure alcohol)occasionallySex and Gender InformationValueDate RecordedSex Assigned at BirthNot on fileLegal XdvZhfg23/25/2022 9:57 AM ESTGender IdentityNot on file Sexual OrientationNot on file Last Filed Vital Signs Vital SignReadingTime TakenCommentsBlood Ntewncyn933/7004 1:19 PM EDT Sgvoc6565 1:19 PM EDTTemperature--Respiratory Rate--Oxygen Saturation-- Inhaled Oxygen Concentration--Ymbvou741 kg (221 lb 9.6 oz)08/01/2024 1:19 PM EDT Qnapmq166.3 cm (5' 11 )08/01/2024 1:19 PM EDTBody Mass Index30.9104 1:19 PM EDT Plan of Treatment DateTypeDepartmentCare Team (Latest Contact Info)Eyjggfimgkv23/04/2025 2:00 PM ESTOffice Visit [facility] [address] [facility] [address] [place] [address] Ko Gamble MD [address] [facility] [address] [place] [address] Health MaintenanceDue DateLast DoneCommentsCT Xoqpgcoenqvh45/14/1962Colonoscopy 1961olorectal Cancer Dslpipltd71/14/1962FIT-DNA (Cologuard)1961FIT 1960HIV Nbgezqwih57/14/1962Lipid Panel1960 7210Gupjdbngxgcfp95/14/1962MMR Vaccines (1 of 1 - Standard series)1962Diabetes Qihohjxqr03/14/1980 Hepatitis C Lhdlcexng56/14/1980CKD: Urine Protein Sgokmjajj48/14/1981 DTaP/Tdap/Td Vaccines (1 - Tdap)07/05/1983Pneumococcal Vaccine (2 of 2 - PCV) 04/23//04/2008, 04/23/2003PSA Prostate Cancer Rayrcixwe48/14/2012Zoster Vaccines (1 of 2)07/05/2011Yearly Adult Aazynzmr71/Influenza Vaccine (#1)/04/2013, 02/12/2013COVID-19 Vaccine ( - season)2024RSV High Risk: (Elderly (60+) or Population) (1 - 1- dose 75+ series)2036HIB VaccinesAged OutNo longer eligible based on patient's age to complete this topicHPV VaccinesAged OutNo longer eligible based on patient's age to complete this topicHepatitis A VaccinesAged OutNo longer eligible based on patient's age to complete this topicHepatitis B VaccinesAged OutNo longer eligible based on patient's age to complete this topicIPV Vaccines Aged OutNo longer eligible based on patient's age to complete this topic Meningococcal VaccineAged OutNo longer eligible based on patient's age to complete this topicRotavirus VaccinesAged OutNo longer eligible based on patient's age to complete this topic Insurance Care Teams Team MemberRelationshipSpecialtyStart DateEnd Regi Chapman MD PCP - GeneralFamily Medicine06/19/23 Ko Gamble MD [address] [facility] [address] [place] [address] Consulting PhysicianCardiology06/19/23
--- OUTSIDE RECORDS SUMMARY | 2025-02-10 09:33 | XMS_ITS | Clinical Summary ---
Author Organization [facility] Address [address] [place] [address] Care Team Providers Care Sorting Livestock Worker Name Role Phone Unavailable Primary Care Provider Unavailabl e Social History Tobacco UseTypesPacks/DayYears UsedDateSmoking Tobacco: Never AssessedSex and Gender InformationValueDate RecordedSex Assigned at BirthNot on fileLegal Sex Male07/05/2022 6:55 PM EDTGender IdentityNot on fileSexual OrientationNot on file Last Filed Vital Signs Vital SignReadingTime TakenCommentsBlood Mhzdjlih213/6704/17/2018 12:00 PM EST Pulse--Temperature--Respiratory Rate--Oxygen Saturation--Inhaled Oxygen Concentration--Nxnndn694 kg (235 lb)04/17/2018 12:00 PM IWVSrnmzv148.1 cm (5' 10.5 )04/17/2018 12:00 PM ESTBody Mass Index33.24106/18/2017 12:00 PM EST Plan of Treatment Not on file
--- OUTSIDE RECORDS SUMMARY | 2025-02-10 09:33 | XMS_ITS | Clinical Summary ---
Author Organization [facility] Address [address] [place] [address] Care Team Providers Care Mortgage Loan Underwriter Name Role Phone Unavailable Primary Care Provider Unavailabl e Social History Tobacco UseTypesPacks/DayYears UsedDateSmoking Tobacco: Never AssessedSex and Gender InformationValueDate RecordedSex Assigned at BirthNot on fileLegal Sex Male03/24/2012 7:35 AM ESTGender IdentityNot on fileSexual OrientationNot on file Plan of Treatment Health MaintenanceDue DateLast DoneCommentsAnxiety Rcfdqcwqj23/14/1980Depression Mcsythovp31/14/1980HIV Vyhnixzkt59/14/1980Hepatitis C Nyiieukzv40/14/1980 DTaP,Tdap,Td Vaccine (1 - Tdap)1980Lipid Pvhpxngca68/14/1997CT Ogpvhzeiqgjl10/14/2007Cologuard (FIT-DNA)07/04/20068454Vsjjmolusvh92/14/2007 Colorectal Cancer Aexmyowct72/14/2007Diabetes Wwjjqesfx33/14/2007Fecal Occult Blood2006Prostate Cancer Screening Xzoebgscce02/14/2007Sigmoidoscopy 2006Pneumococcal Vaccine: 50+ (1 of 1 - PCV)07/05/2011Shingrix Vaccine (1 of 2)07/05/2011Covid-19 Vaccine (1 - 2024- season)2024Influenza Vaccine (#1)2024RSV Vaccine (1 - 1-dose 75+ series)2036 Insurance
--- OUTSIDE RECORDS SUMMARY | 2025-02-10 09:36 | XMS_ITS | CCD ---
Author Organization [facility] Care Team Providers Care Associate Professor Of Counseling Name Role Phone PHYSICIAN, DEFAULT Unavailable Unavailable PHYSICIAN, DEFAULT Unavailable Unavailable KO ERICKSON Unavailable Unavailable TERESE, JARETT Unavailable Unavailable Jarett [...] Unavailable DRE, DR KO White Consulting Unavailable ERICKSON, DR KO White Attending Unavailable ERICKSON, DR KO White Admitting Unavailable TERESE, DR [...] Unavailable TERESE, DR JARETT Finney Consulting Unavailable ERICKSON, DR KO White Consulting Unavailable ERICKSON, DR KO White Attending Unavailable ERICKSON, DR KO White Admitting Unavailable TERESE, DR [...] Jared Leong Unavailable Terese, Dr. Jarett Dhillon [facility] Simranvafranck Erickson, Dr. Ko Godoy Attending Simran vailable Dre, Dr. Ko Godoy Referring Simran vailable Terese, Dr. Jarett Dhillon [facility] Unavai labaidan Erickson, Dr. Ko Godoy Attending Simran vailable Erickson, Dr. Ko Godoy Referring Simran vailable MD Jared Leong Primary Care Provider MD Uche Porter Attending Provider [phone] Jared Leong MD Primary Care Provider Ko Erickson MD Unavailable Jared Leong MD Primary Care Provider Ko Erickson MD Unavailable KO ERICKSON Attending Unavailable KO ERICKSON Referring Unavailable JARED LEONG Primary Care Unavailable KO ERICKSON Attending Unavailable KO ERICKSON Referring Unavailable JARED LEONG Primary Care Unavailable Jared Leong MD Primary Care Provider [phone] Sandi Collazo APRN Attending Provider Kelechi Martin MD Attending Provider Jared Leong MD Primary Care Provider Chas Dean MD Attending Provider [phone] Jared Leong Primary Care Unavailable Chas Dean Attending Unavailable Chas Dean Admitting Unavailable Jared Leong Primary Care Unavailable Kelechi Martin Attending Unavaila Kelechi Redding Admitting Unavaila ble Vale, Sandi M Attending Unavailable Sandi Collazo M Admitting Unavailable Jared Leong Primary Care Unavailable Jared Leong MD Primary Care Provider Chas Dean MD Attending Provider Kelechi Martin MD Attending Provider Chas Dean MD Other Provider Jared Leong MD Attending Provider Jared Leong MD Primary Care Provider Shon Rosario DO Attending Provider America Gallegos CMA Attending Provider UnavailJared Toledo MD Primary Care Provider Jared Leong MD Attending Provider Aubree Louise DO Attending Provider Allergies Allergy ClassificationReported Allergen(s)Allergy TypeDate of OnsetReaction(s) Facility (19 sources)dabigatran etexilate; Translations: [Pradaxa CAPS]Drug Allergy 59-13-3827ValnoefpTqlaxfzxrnSalem [facility] Hospital (19 sources)Penicillins; Translations: [Penicillins]Allergy to drug (finding) 53-62-0012qzylgufqjspTHJeremy Ville [id number] [place] Work Phone: (2 sources)dabigatran etexilate; Translations: [dabigatran]Drug AllergyRectal hemorrhage (disorder), Bleeding from nose (finding), Incontinence (finding) [facility] [place] (8 sources)Penicillin; Translations: [penicillin]Drug Lbquytp93-71-9907 anaphylaxisThe [facility] (8 sources)dabigatran etexilate; Translations: [DABIGATRAN ETEXILATE]Drug Zqiupub44-84-6646goaohxxyKjxjrivsb [facility] Medical [facility] (1 source)PenicillinsDrug Oqubtkd75-10-5958ByzkhyoEkdczxpdjrAshtabula General Hospital Work Phone: (3 sources)rosuvastatin; Translations: [ROSUVASTATIN]Drug Wuoknqk04-60-6578 [facility]algiaAv[facility] (1 source)PenicillinsDrug Xkyeblz29-30-9337UqywldtOqqabzqmikAshtabula General Hospital Work Phone: (1 source)PenicillinsDrug allergy (disorder)35-02-8999IsdhunozrEast [facility] Hospital Repository (2 sources)buPROPionDrug Jyyxebr04-41-1846BgblhvdmzyDdilorrskDetwiler Memorial HospitalComment on above:Took wellbutrin for smoking cessation and felt very bad w depressive symptoms. Medications Current Medications MedicationDrug Class(es)DatesSig (Normalized)Sig (Original)Aciphex 20 mg Tab-EC (1 source)Start: 12-00-4329ywah 1 tablet by mouth once dailyAciphex 20 mg Tab-EC 20 mg = 1 tab(s), Oral, Daily, # 90 tab(s), Refills(s) 3, [facility]: [facility], 180.3, cm, 05/20/20 15:18:00 EST, Height/Length Dosing, 108.4, kg, 05/20/20 15:18:00 EST, Weight Dosing Start Date: 05/21/21 Status: Orderedbisoprolol fumarate 5 mg oral tablet (2 sources)beta-Adrenergic BlockerStart: 04-18-2023 End: 05-29-0583kivbcfhdan (Zebeta) 5 mg tablet Indications: Palpitations TAKE 1 TABLET DAILY (STOP BYSTOLIC NEW START) 90 tablet 3 04/14/2024 Activedronedarone 400 mg oral tablet (20 sources)AntiarrhythmicStart: 08-07-2023 End: 89-34-8407wfbs 1 tablet by mouth twice daily at mealtimeDronedarone (Multaq) 400 mg tablet Active 400 MG PO Twice daily August 15, 2024 12:00am must administer with a meal/food Complies with drug therapyStart: 05-49-3312kyzw 1 tablet by mouth twice daily at dinnerMultaq 400 MG Oral Tablet TAKE 1 TABLET TWICE DAILY, WITH MORNING AND EVENING MEAL Quantity: 180 Refills: 3 Ordered: 12-Dec-2022 Ko Erickson MD Start : 03-Feb-2021 Activemagnesium oxide 400 mg oral tablet (2 sources)Start: 88-49-6443xtdu 1 tablet by mouth once dailymagnesium oxide 400 mg Tab TAKE ONE TABLET BY MOUTH DAILY Start Date: 09/09/21 Status: OrderedStart: 53-45-0128dkfh 1 tablet by mouth once dailyMagnesium Oxide 400 MG Oral Tablet TAKE 1 TABLET DAILY. Quantity: 90 Refills: 3 Ordered: 6-Lwp-5940OmjtybuKo Erickson MD Start : 24-May-2021 Active New startnebivolol 10 mg oral tablet (20 sources)Start: 24-17-2453orsg 1 tablet by mouth once dailyNebivolol 10 mg tablet Active 1 TAB PO Daily August 07, 2023 12:00am FreeTextSi tablet Orally Once a day; Note: Source Status: Taking; Provider: German Ivey ( ) Complies with drug therapyStart: 36-09-4445jsws 1 tablet by mouth once dailyNebivolol Active 1 TAB PO Daily August 07, 2023 12:00am FreeTextSi tablet Orally Once a day; Note: Source Status: Taking; Provider: German Ivey ( )Start: 91-67-0785onga 1 tablet by mouth once dailyNebivolol HCl - 10 MG Oral Tablet Take 1 tablet daily Quantity: 90 Refills: 3 Ordered: 12-Dec-2022 Ko Erickson MD Start : 03-Feb-2021 ActiveOXcarbazepine 300 mg oral tablet (1 source)Anti-epileptic AgentStart: 24-29-8011oxvb 0.5 mg by mouth twice daily, then take 1 tablet by mouth twice dailyOxcarbazepine (Trileptal) 300 mg tablet Active 0 PO .COMPLEX 60 2 February 09, 2025 12:00am 1/2 bid x 2 then 1 po bid orally; Complies with drug therapyRabeprazole 20 mg tablet,delayed release (DR/EC) (4 sources)Start: 65-39-1999Lxkfrlzyuwr 20 mg tablet,delayed release (DR/EC) Active 0 .ROUTE .COMPLEX 90 January 28, 2024 8:54am TAKE 1 TABLET DAILYStart: 09-03-2023 End: 63-81-4739Jkgjvazsxxk 20 mg tablet,delayed release (DR/EC) Discontinued 0 .ROUTE .COMPLEX September 03, 2023 12:41pm January 28, 2024 8:54am TAKE 1 TABLET DAILYvarenicline 1 mg oral tablet (2 sources)Partial Cholinergic Nicotinic AgonistStart: 64-27-2710hcbe 0.5 tablet by mouth once daily, then take 0.5 tablet by mouth twice daily, then take 1 tablet by mouth twice dailyAPO-Varenicline 1 MG 1/2 tab once daily x 3 days, then 1/2 tab bid, x 4 days then 1 po bid Orally for 90 days August, Active warfarin sodium 4 mg oral tablet (20 sources)Vitamin K AntagonistStart: 27-34-1051Xsaozszv 4 mg tablet Active 0 .ROUTE .COMPLEX 90 March 21, 2024 8:49am TAKE 1 TABLET DAILY Complies with drug therapyStart: 83-83-0609Ujthjxmr 4 mg tablet Active 0 .ROUTE .COMPLEX 90 March 21, 2024 8:49am TAKE 1 TABLET DAILYStart: 09-27-2023 End: 37-11-6847bqjs 1 tablet by mouth once dailyWarfarin 4 mg tablet Discontinued 4 MG PO Daily 90 0 January 09, 2024 1:39pm March 21, 2024 8:49amStart: 97-82-9480Qmacrlrn Sodium 5 MG Oral Tablet DIRECTED BY DR GUDINO Quantity: 0 Refills: 0 Ordered: 11-May-2021 DO Start : 08-Feb-2021 ActiveStart: 02-08-2021 End: 22-86-8140jmqs 1 tablet by mouth once dailyWarfarin 5 mg tablet Discontinued 5 MG PO Daily 90 0 July 27, 2023 10:48pm September 27, 2023 12:17pm Warfarin 5mg 5 mg 1 tab orally tu, th, sat, & sun ActiveWarfarin 5mg 5 mg 1 & 1/2 tab orally Mon, wed, & fri Active Completed/Discontinued Medications MedicationDrug Class(es)DatesSig (Normalized)Sig (Original)[id number] 200 actuat albuterol 0.09 mg/actuat metered dose inhaler (5 sources)beta2-Adrenergic AgonistStart: 06-17-2024 End: 26-81-2400emut 1 puff(s) by inhalation every four to six hours as needed for wheezingAlbuterol Sulfate 90 mcg/actuation HFA aerosol inhaler Discontinued 2 PUFF INHALATION EVERY 4-6 HOURS as needed for shortness of breath or wheezing 8.5 0 June 17, 2024 1:00am August 15, 2024 10:05am12 hr buPROPion hydrochloride 150 mg extended release oral tablet (19 sources)AminoketoneStart: 08-01-2023 End: 07-60-8960xpmz 1 tablet by mouth twice dailyBupropion Hcl 150 mg tablet sustained-release 12 hr Discontinued 150 MG PO Twice daily 180 90 0 August 01, 2023 8:55am August 14, 2023 3:05pmStart: 07-27-2023 End: 68-66-5919cihl 1 tablet by mouth once dailyBupropion Hcl 150 mg tablet sustained-release 12 hr Discontinued 150 MG PO Daily 90 0 July 27, 2023 10:47pm August 01, 2023 8:56amWellbutrin SR 150 MG 1 tablet in the morning Orally Once a day x 3 days, then bid for 30 days Activesugar-free cholestyramine resin 4000 mg powder for oral suspension (11 sources)Bile Acid SequestrantStart: 08-26-2024 End: 42-55-8116Obnnkitztioiwx 4 gram powder Discontinued 4 GM PO As Directed August 26, 2024 12:00am February 09, 2025 2:02pmStart: 23-61-1181Tovgzsty 4 g/9 g oral powder = 1 packet(s), Oral, BID, # 60 EA, Refills(s) 5, [facility] Start Date: 12/02/18 Status: OrderedCholestyramine 4 GM Oral Packet MIX THE CONTENTS OF 1 POWDER PACKET WITH 2 TO 6 OZ OF NONCARBONATED BEVERAGE NEEDED. Quantity: 0 Refills: 0 Ordered: 12-Dec-2022 DO Active colestipol hydrochloride 5000 mg granules for oral suspension (13 sources)Bile Acid SequestrantStart: 08-07-2023 End: 82-53-2291Uyixfadgoa 5 gram granules Discontinued GM PO As Directed August 07, 2023 12:00am August 26, 2024 8:47am FreeTextSig: as directed Orally; Note: Source Status: Taking; Provider: Salo Deluna EStart: 11-15-4413Gqzwfplcbe Active GM PO As Directed August 07, 2023 12:00am FreeTextSig: as directed Orally; Note:Source Status: Taking; Provider: Salo Deluna EColestid 5 GM as directed Orally Activedocosahexaenoic acid 120 mg / eicosapentaenoic acid 180 mg oral capsule (3 sources)take 2 capsules by mouth twice dailyOmega 3 1000 MG Oral Capsule TAKE 2 CAPSULE Twice daily Quantity: 0 Refills: 0 Ordered: 25-Gmo-6986YQ Active Magnesium (5 sources)take 1 tablet by mouth once dailyMagnesium 250 MG Oral Tablet TAKE 1 TABLET DAILY. Quantity: 0 Refills: 0 Ordered: 06-Dec-2021 DO Activepravastatin sodium 40 mg oral tablet (9 sources)HMG-CoA Reductase InhibitorStart: 08-14-2023 End: 61-11-1098tflm 1 tablet by mouth once dailyPravastatin 40 mg tablet Discontinued 40 MG PO Daily August 14, 2023 12:00am February 09, 2025 1:59pm Start: 06-01-2023 End: 23-92-0189dugn 1 tablet by mouth once dailyPravastatin 20 mg tablet Active 20 MG PO Daily February 09, 2025 12:00am Complies with drug therapyStart: 38-70-5816jiyt 1 mg by mouth once dailyPravastatin Sodium 20 MG Oral Tablet take one daily at night Quantity: 30 Refills: 5 Ordered: 05-Jan-2023 Ko Erickson MD Start : 05-Jan-2023 Active new replaces crestorRABEprazole sodium 20 mg delayed release oral tablet (20 sources)Proton Pump InhibitorStart: 09-03-2023 End: 89-61-7037Fxglwzjltcm 20 mg tablet,delayed release (DR/EC) Discontinued 0 .ROUTE .COMPLEX 90 3 December 16, 2024 9:53am February 09, 2025 2:02pm TAKE 1 TABLET DAILYStart: 05-21-2021 End: 11-98-0969tczn 1 tablet by mouth once dailyRabeprazole (Aciphex) 20 mg tablet,delayed release (DR/EC) Discontinued 20 MG PO Daily August 07, 2023 12:00am September 03, 2023 12:41pmAciphex Activerosuvastatin calcium 20 mg oral tablet (1 source)HMG-CoA Reductase InhibitorStart: 11-72-6982jfwo 1 tablet by mouth once dailyRosuvastatin Calcium 20 MG Oral Tablet TAKE 1 TABLET DAILY. Quantity: 90 Refills: 3 Ordered: 12-Dec-2022 Ko Erickson MD Start : 12-Dec-2022 Active Sod Picosulf-Mag Ox-Citric Ac (4 sources)Start: 08-15-2024 End: 73-94-2391tico 1 dose by mouth once dailySod Picosulf-Mag Ox-Citric Ac (Clenpiq) 10 mg-3.5 gram- 12 gram/175 mL solution Discontinued 175 MLPO Daily 350 0 0 August 15, 2024 12:00am September 11, 2024 7:30am Take first dose at 3pm evening before colonoscopy; second dose at 9 pm night before colonoscopyStart: 08-15-2024 End: 26-52-6787fgnl 1 dose by mouth once dailySod Picosulf-Mag Ox-Citric Ac (Clenpiq) 10 mg-3.5 gram- 12 gram/175 mL solution Discontinued 175 MLPO Daily 350 0 August 15, 2024 12:00am September 11, 2024 7:30am Take first dose at 3pm evening beforecolonoscopy; second dose at 9 pm night before colonoscopy Problems Active Problems Problem ClassificationProblemDateDocumented DateEpisodic/ChronicBiliary tract disease (8 sources)Postcholecystectomy syndrome; 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]10-68-7761NoigigfuBasedjzrf and vision defects (11 sources)Eye / vision finding; Translations: [Unspecified visual disturbance] Onset: 04-09-2023 Resolved: 635252-00-9501SbjntddbLygacmv dysrhythmias (20 sources)Paroxysmal atrial fibrillation; Translations: [Atrial fibrillation] Onset: 19-36-7901QijuznaQkiqued dysrhythmias (11 sources)Palpitations; Translations: [Palpitations]Onset: 04-09-2023 60-33-8217QsiletnzQfvyltb dysrhythmias (1 source)Cardiac dysrhythmiasOnset: 05-76-1368Usvruni kidney disease (8 sources)Chronic kidney disease stage 3A ; Translations: [Chronic kidney disease, Stage III (moderate)]Onset: 04-09-2023 Resolved: 310044-44-4778CpzsqdyAgiigrn kidney disease (2 sources)Chronic kidney disease; Translations: [Chronic kidney disease, stage 3a (Multi)]Onset: 28-88-2794Gdiqtjywch associated with dizziness or vertigo (9 sources)Dizziness and giddiness; Translations: [Dizziness and giddiness] Onset: 98-20-6249AqvzrurqKnyjwmrsk of lipid metabolism (20 sources)Hypertriglyceridemia; Translations: [Pure hyperglyceridemia]Onset: 04-09-2023 Resolved: 59-52-2303StvuplvJncntizjry disorders (16 sources)Gastroesophageal reflux disease; Translations: [GERD [Gastroesophageal reflux disease]]ChronicHeadache; including migraine (2 sources)Headache; Translations: [Headache]15-61-4671BojguzekMrmb disorders (3 sources)Seasonal affective disorder; Translations: [Major depressive disorder, recurrent, in remission, unspecified]91-60-0955YcmvnthHbqsf aftercare (6 sources)Drug therapy finding; Translations: [Long-term (current) use of other medications]EpisodicOther aftercare (4 sources)Encounter for therapeutic drug level monitoring; Translations: [ENC THERAPEUTC DRUG LEVL MONITORING]Onset: 88-00-6075RwdzzdrmYdaun aftercare (5 sources)Taking high risk medication; Translations: [Other mcc (current) drug therapy]Onset: 445041-24-9593FgzupvqdIoocx ear and sense organ disorders (1 source)Hearing loss; Translations: [Unspecified hearing loss, right ear] Onset: 47-78-9795ZoefwuiSvtpv ear and sense organ disorders (1 source)Hearing loss of right upz11-79-3761PyvzxhxJsotx gastrointestinal disorders (6 sources)Other intestinal malabsorption; 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]88-09-0818MotccicKplzo lower respiratory disease (12 sources)Nodule of lung; Translations: [Solitary pulmonary nodule]08-11-2023 EpisodicOther lower respiratory disease (3 sources)Solitary pulmonary nodule; Translations: [Solitary pulmonary nodule] EpisodicOther lower respiratory disease (5 sources)Dyspnea; Translations: [Shortness of breath]05-79-5506RzglrqqkSfnre nervous system disorders (4 sources)Trigeminal neuralgia; Translations: [Trigeminal neuralgia]Onset: 19-84-6144BybqmvthRxjep non-traumatic joint disorders (5 sources)Hip pain; Translations: [Pain in right hip]16-85-0891GkvxeirnZyifo nutritional; endocrine; and metabolic disorders (6 sources)Obesity; Translations: [Obesity, unspecified]ChronicOther nutritional; endocrine; and metabolic disorders (4 sources)Body mass index 30+ - obesity; Translations: [Body mass index (BMI) 30.0-30.9, adult]Onset: 296127-74-5190WvgqutbInpyr nutritional; endocrine; and metabolic disorders (1 source)Obese class I; Translations: [Obesity, Class I, BMI 30-34.9]08-01-2024 ChronicOther nutritional; endocrine; and metabolic disorders (2 sources)Body mass index (BMI) 30.0-30.9, adult; Translations: [Body mass index (BMI) 30.0-30.9, adult]Onset: 63-83-7818BijzuqtQeymn nutritional; endocrine; and metabolic disorders (5 sources)Weight decreased; Translations: [Abnormal weight loss]09-12-2023 EpisodicOther screening for suspected conditions (not mental disorders or infectious disease) (12 sources)CT of chest abnormal; Translations: [Abnormal findings on diagnostic imaging of other specified body structures]ChronicOther screening for suspected conditions (not mental disorders or infectious disease) (19 sources)Encounter for screening for malignant neoplasm of prostate; Translations: [Encounter for screening for malignant neoplasm of colon]Onset: 70-67-7800WsjzprtxZioup upper respiratory infections (5 sources)Chronic maxillary sinusitis; Translations: [Chronic maxillary sinusitis]24-60-1247EwdplbcFdwzs upper respiratory infections (6 sources)Viral upper respiratory tract infection; Translations: [Acute upper respiratory infection, unspecified]09-92-4063ByexfrqaDafnamds codes; unclassified (2 sources)Hypersomnia; Translations: [Hypersomnia, unspecified]02-09-2025 ChronicSubstance-related disorders (20 sources)Smokes tobacco daily; Translations: [Tobacco use disorder]Onset: 95-36-7698CbrpqioSupnmxt on above:1 ppd;Syncope (1 source)Vasovagal bipmhc75-68-2933BmplhcctBcjgtlehh cerebral ischemia (11 sources)Transient cerebral ischemia; Translations: [Unspecified transient cerebral ischemia]Onset: 965503-89-2066PddsyojFptpouqmrxrl (2 sources)Other mcc (current) drug therapy / Z79.899(ICD-9)Onset: 24-03-4908Htfgrwkrhgfv (3 sources)Patient encounter kihxls13-63-5978 Past or Other Problems Problem ClassificationProblemDateDocumented DateEpisodic/ChronicOther aftercare (3 sources)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; 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]Onset: 68-73-0612PxfuzrhePrgfe lower respiratory disease (3 sources)Shortness of breath; Translations: [Shortness of breath]Onset: 979603-51-7745XcxowbcoEuapt nervous system disorders (8 sources)Vela's palsy; 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]Onset: EpisodicUnclassified (1 source)Other mcc (current) drug therapy; 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]Onset: 47-88-7680Dixdhalqxrba (2 sources)Onset: 235486-09-3682 Results Test NameValueInterpretationReference RangeFacilityINR in Platelet poor plasma by Coagulation assayOrdered By: Jared Leong on 36-02-9467BHW Coag (PPP) [Relative time]2.77 {INR}[facility] HospitalComment on above: DESIRED INR:2.0-3.0 CONDITIONS NOT LISTED BELOW2.5-3.5 FOR PROSTHETIC HEART VALVE REPLACEMENT2.5-3.5 RECURRENT THROMBOSISProthrombin time (PT)Ordered By: Jared Leong on 27-15-2446HQ Coag (PPP) [Time]26.5 sHigh9.0-11.6FSamaritan North Health CenterBasophils Auto (Bld) [#/Vol]Ordered By: Shon Rosario on 30-99-1903Plfeeovpb (Bld) [#/Vol]0.1 10 3/uL0.0-0.1FSamaritan North Health CenterBasophils/100 WBC Auto (Bld)Ordered By: Shon Rosario on 12-05-2024 Basophils/100 WBC (Bld)0.8 %0.2-2.0[facility] Eosinophils/100 WBC Auto (Bld)Ordered By: Shon Rosario on 12-05-2024 Eosinophils/100 WBC (Bld)2.5 %0.9-7.0[facility] Erythrocyte distribution width Auto (RBC) [Ratio]Ordered By: Shon Rosario on 83-57-9272Jagtskiohco distribution width (RBC) [Ratio]12.6 %11.0-15.0[facility] HospitalGlomerular filtration rate (GFR) estimation in non- AmericanOrdered By: Shon Rosario on 09-35-0792OLK/1.73 sq M.predicted among non-blacks MDRD (S/P/Bld) [Vol rate/Area]mL/min/{1.73_m2}>=60 mL/min/1.73m 2FSamaritan North Health CenterHematocrit Auto (Bld) [Volume fraction]Ordered By: Shon Rosario on 68-10-0891Ggzjzcssqx (Bld) [Volume fraction]48.2 %42.0-54.0 [facility] HospitalHemoglobin [Mass/volume] in BloodOrdered By: Shon Rosario on 93-19-2452Xvsnokxebi (Bld) [Mass/Vol]16.7 g/dL14.0-18.0 [facility] HospitalLaboratory - Chemistry and Chemistry - challengeOrdered By: Shon Rosario on 66-14-3021Uycjjqf [Mass/Vol]8.4 mg/dLLow 8.5-10.1FSamaritan North Health CenterChloride [Moles/Vol]103 mmol/L98-107 [facility] HospitalCO2 [Moles/Vol]26.9 mmol/L21.0-32.0[facility] HospitalCreatinine [Mass/Vol]0.98 mg/dL0.70-1.30[facility] HospitalGFR/1.73 sq M.predicted MDRD (S/P/Bld) [Vol rate/Area] mL/min/{1.73_m2}>=60 mL/min/1.73m 2FSamaritan North Health CenterGlucose [Mass/Vol]151 mg/bWUdjz20-165ArtlzvitsEast Liverpool City HospitalPotassium [Moles/Vol]4.1 mmol/L3.5-5.1FKnox Community Hospitalodium [Moles/Vol] 139 mmol/O050-455HntfliahgEast Liverpool City HospitalUrea nitrogen [Mass/Vol]11.0 mg/dL7.0-18.0[facility] HospitalUrea nitrogen/Creatinine [Mass ratio]11.2 mg/mgEast Liverpool City HospitalLaboratory - Hematology and Cell countsOrdered By: Shon Rosario on 86-95-0017Jcrrhlnl granulocytes/100 WBC (Bld)0.4 %0.0-0.5FSamaritan North Health CenterLeukocytes [#/volume] corrected for nucleated erythrocytes in Blood by Automated counOrdered By: Shon Rosario on 96-78-0184KXB corrected for nucl RBC Auto (Bld) [#/Vol]7.6 10 3/uL4.0-11.0[facility] HospitalLymphocytes Auto (Bld) [#/Vol] Ordered By: Shon Rosario on 41-21-5250Ocvkaetxizf (Bld) [#/Vol]1.7 10 3/uL 1.2-3.8[facility] HospitalLymphocytes/100 WBC Auto (Bld)Ordered By: Shon Rosario on 14-91-3556Ffopwpsfusq/100 WBC (Bld)22.4 %20.5-60.0[facility] Auto (RBC) [Entitic mass]Ordered By: Shon Rosario on 12-94-7709LQB (RBC) [Entitic mass]31.0 pg25.9-34.0[facility] HospitalMCHC Auto (RBC) [Mass/Vol]Ordered By: Shno Rosario on 37-45-1071NALJ (RBC) [Mass/Vol]34.6 g/dL29.9-35.2FSamaritan North Health CenterMCV Auto (RBC) [Entitic vol]Ordered By: Shon Rosario on 26-94-4646GIK (RBC) [Entitic vol]89.4 fL80.0-94.0[facility] HospitalMonocytes Auto (Bld) [#/Vol]Ordered By: Shon Rosario on 51-37-9534Cdcpubuee (Bld) [#/Vol]0.8 10 3/uL 0.3-0.8[facility] HospitalMonocytes/100 WBC Auto (Bld)Ordered By: Shon oRsario on 49-91-6466Jkjppkghk/100 WBC (Bld)10.3 %1.7-12.0[facility] HospitalNeutrophils Auto (Bld) [#/Vol]Ordered By: Shon Rosario on 54-55-4913Brztbbbtjyw (Bld) [#/Vol]4.8 10 3/uL1.4-6.5FSamaritan North Health CenterNeutrophils/100 WBC Auto (Bld)Ordered By: Shon Rosario on 53-92-6314Ctwyekvuzhn/100 WBC (Bld)63.6 %43.0-75.0[facility] HospitalNo Panel InformationOrdered By: Shon Rosario on 44-33-6440Keiwuxowsvn # (Auto)0.2 10 3/uL0.0-0.7FSamaritan North Health CenterImmature Granulocyte # (Auto)0.03 10 3/uL0.00-0.03[facility] HospitalPlatelet mean volume Auto (Bld) [Entitic vol]Ordered By: Shon Rosario on 22-95-7941Pmazqqjm mean volume (Bld) [Entitic vol]10.5 fL9.5-13.5FSamaritan North Health Center Platelets Auto (Bld) [#/Vol]Ordered By: Shon Rosario on 39-64-6120Hxprbnbbl (Bld) [#/Vol]188 10 3/wQ693-022DqyhejkjwEast Liverpool City HospitalRBC Auto (Bld) [#/Vol]Ordered By: Shon Rosario on 70-50-8972WQN (Bld) [#/Vol]5.39 10 6/uL 4.70-6.10[facility] HealthCare Main Campuserum or plasma anion gap determinationOrdered By: Shonjay Rosario on 96-19-9226Qnckz gap [Moles/Vol]13.2 mmol/LFSamaritan North Health CenterBasophils Auto (Bld) [#/Vol]Ordered By: Chas Dean on 39-56-1339Qrjzxmqoc (Bld) [#/Vol]Automated basophil count 0.0-0.2FSamaritan North Health CenterBasophils/100 WBC Auto (Bld)Ordered By: Chas Dean on 23-84-2168Ausomjdwx/100 WBC (Bld)Automated basophil %.[facility] HospitalComplete Blood Count Auto DiffOrdered By: Chas Dean on 52-39-3657Rqcchhcfy (Bld) [#/Vol]0.1 10*3/uL0.0-0.2FSamaritan North Health CenterComment on above:Result Comment: PERFORMED BY: [place] [address] PATHOLOGIST [employer] MANAGER MARK AVITIA M.D.Performed By: #### CBC, PTT, PT #### [facility] [address] [place] [address] USABasophils/100 WBC (Bld)1.2 %.[facility] Liverpool City HospitalComment on above:Performed By: #### CBC, PTT, PT #### [facility] [address] [place] [address] USAEosinophils (Bld) [#/Vol]0.2 10*3/uL0.0-0.45[facility] [place] City HospitalComment on above:Performed By: #### CBC, PTT, PT #### [facility] [address] [place] [address] USAEosinophils/100 WBC (Bld)2.0 %.[facility] City HospitalComment on above:Performed By: #### CBC, PTT, PT #### [facility] [address] [place] [address] USAErythrocyte distribution width (RBC) [Ratio]14.0 % 12.0-14.8[facility] City HospitalComment on above:Performed By: #### CBC, PTT, PT #### [facility] [address] [place] [address] USAHematocrit (Bld) [Volume fraction]47.8 %38.8-50.0[facility] City HospitalComment on above:Performed By: #### CBC, PTT, PT #### [facility] [address] [place] [address] USAHemoglobin (Bld) [Mass/Vol]16.8 g/dL13.0-17.0[facility] City HospitalComment on above:Performed By: #### CBC, PTT, PT #### [place] [address] USALymphocytes (Bld) [#/Vol]2.1 10*3/uL1.00-4.8[facility] City HospitalComment on above:Performed By: #### CBC, PTT, PT #### [facility] [address] [place] [address] USALymphocytes/100 WBC (Bld)20.5 %.[facility] City HospitalComment on above:Performed By: #### CBC, PTT, PT #### [facility] [address] [place] [address] USAMCH (RBC) [Entitic mass]31.5 pg27.5-35.2FSamaritan North Health CenterComment on above:Performed By: #### CBC, PTT, PT #### [facility] [address] [place] [address] USAMCV (RBC) [Entitic vol]89.6 fL83.5-101[facility] [place] City HospitalComment on above:Performed By: #### CBC, PTT, PT #### [facility] [address] [place] [address] USAMonocytes (Bld) [#/Vol]1.3 10*3/uLHigh0.0-0.8[facility] [place] [facility] HospitalComment on above:Performed By: #### CBC, PTT, PT #### [facility] [address] [place] [address] USAMonocytes/100 WBC (Bld)12.7 %.[facility] HospitalComment on above:Performed By: #### CBC, PTT, PT #### [facility] [address] [place] [address] USANeutrophils (Bld) [#/Vol]6.5 10*3/uL1.8-7.7FSamaritan North Health CenterComment on above:Performed By: #### CBC, PTT, PT #### [facility] [address] [place] [address] USANeutrophils/100 WBC (Bld)63.6 %.[facility] City HospitalComment on above:Performed By: #### CBC, PTT, PT #### [place] [address] USAPlatelet mean volume (Bld) [Entitic vol]8.8 fL6.6-10.1 [facility] [place] [facility] HospitalComment on above:Performed By: #### CBC, PTT, PT #### [facility] [address] [place] [address] USAPlatelets (Bld) [#/Vol]180 10*3/mB491-070MtccmpuakEast Liverpool City HospitalComment on above:Performed By: #### CBC, PTT, PT #### [facility] [address] [place] [address] USARBC (Bld) [#/Vol]5.33 10*6/uL3.90-5.60[facility] [place] [facility] HospitalComthree rivers health hospital on above:Performed By: #### CBC, PTT, PT #### [facility] [address] [place] [address] USAWBC (Bld) [#/Vol]10.2 10*3/uL4.1-10.5FSamaritan North Health CenterComment on above:Performed By: #### CBC, PTT, PT #### [place] [address] USAComplete Blood Count Auto Diffon 91-04-4810Mubr Corpuscular HGB Conc35.1 g/cUUafttd43.5-35.6[facility] Physician GroupComment on above:Performed By: #### CBC, PTT, PT #### [facility] [address] [place] [address] USANRBC%0.1 /100{WBC}Normal0-0.5[facility] Comment on above:Performed By: #### CBC, PTT, PT #### [facility] [address] [place] [address] USAEosinophils Auto (Bld) [#/Vol]Ordered By: Chas Dean on 44-24-5405Gyalbmrcfys (Bld) [#/Vol]Automated eosinophil count0.0-0.45[facility] [place] City HospitalEosinophils/100 WBC Auto (Bld)Ordered By: Chas Dean on 44-45-7896Xgysboykzug/100 WBC (Bld)Automated eosinophil %.[facility] City HospitalErythrocyte distribution width Auto (RBC) [Ratio]Ordered By: Chas Dean on 64-68-9826Nepyhelzfpy distribution width (RBC) [Ratio] Erythrocyte distribution width [Ratio] by Automated count12.0-14.8[facility] [place] City HospitalHematocrit Auto (Bld) [Volume fraction]Ordered By: Chas Dean on 95-37-5559Eutfceurkp (Bld) [Volume fraction]Hematocrit [Volume Fraction] of Blood by Automated count38.8-50.0[facility] Hemoglobin [Mass/volume] in BloodOrdered By: Chas Dean on 09-11-2024 Hemoglobin (Bld) [Mass/Vol]Hemoglobin [Mass/volume] in Blood13.0-17.0[facility] [place] City HospitalINR in Platelet poor plasma by Coagulation assayOrdered By: Chas Dean on 60-22-9693VQW Coag (PPP) [Relative time]INR in Platelet poor plasma by Coagulation assayEast Liverpool City HospitalComment on above:INR Therapeutic Range A) Pre- and Peroperative OAT started two weeks before surgery. NOT HIP SURGERY: 1.5 - 2.5 HIP SURGERY: 2 - 3B) Primary and secondary prevention of venous THROMBOSIS: 2 - 3C) Active venous thrombosis, pulmonary embolismand prevention of recurrent venous thrombosis: 2 - 3D) Preve ntion of arterial thromboembolismincluding patients with mechanical heart valves: 3 - 4.5Leukocytes [#/volume] corrected for nucleated erythrocytes in Blood by Automated counOrdered By: Chas Dean on 19-06-8697VWW corrected for nucl RBC Auto (Bld) [#/Vol]Leukocytes [#/volume] corrected for nucleated erythrocytes in Blood by Automated coun4.1-10.5FSamaritan North Health Center WBC corrected for nucl RBC Auto (Bld) [#/Vol]10.2 10*3/uL4.1-10.5FSamaritan North Health CenterLymphocytes Auto (Bld) [#/Vol]Ordered By: Chas Dean on 37-22-9904Cbauxrosati (Bld) [#/Vol]Lymphocytes [#/volume] in Blood by Automated count1.00-4.8[facility] [place] City HospitalLymphocytes/100 WBC Auto (Bld)Ordered By: Chas Dean on 52-83-6597Ueterlbhvim/100 WBC (Bld) Lymphocytes/100 leukocytes in Blood by Automated count.[facility] HospitalH Auto (RBC) [Entitic mass]Ordered By: Chas Dean on 01-91-4068IUB (RBC) [Entitic mass]MCH [Entitic mass] by Automated count27.5-35.2 [facility] HospitalHC Auto (RBC) [Mass/Vol]Ordered By: Chas Dean on 47-18-9321XNZS (RBC) [Mass/Vol]MCHC [Mass/volume] by Automated count 32.5-35.6FCentervilleHC (RBC) [Mass/Vol]35.1 g/dL 32.5-35.6FSamaritan North Health CenterMCV Auto (RBC) [Entitic vol]Ordered By: Chas Dean on 12-87-4374GJW (RBC) [Entitic vol]MCV [Entitic volume] by Automated count83.5-101East [place] City HospitalMonocytes Auto (Bld) [#/Vol]Ordered By: Chas Dean on 36-05-9730Rfwyalzih (Bld) [#/Vol]Automated blood monocyte countHigh0.0-0.8[facility] [place] [facility] HospitalMonocytes/100 WBC Auto (Bld)Ordered By: Chas Dean on 09-77-9752Pfxsxnltd/100 WBC (Bld) Automated monocyte %.[facility] City HospitalNeutrophils Auto (Bld) [#/Vol]Ordered By: Chas Dean on 04-79-9387Esscfxjizcx (Bld) [#/Vol] Neutrophils [#/volume] in Blood by Automated count1.8-7.7FSamaritan North Health CenterNeutrophils/100 WBC Auto (Bld)Ordered By: Chas Dean on 52-61-2966Dzapqsihjpi/100 WBC (Bld)Automated neutrophil %.[facility] HospitalNo Panel InformationOrdered By: Chas Dean on 09-11-2024 Miscellaneous Pathology TestSee commentEast Liverpool City HospitalComment on above:See report. Scanned copy available in EMR.Nucleated erythrocytes [Presence] in Blood by Automated countOrdered By: Chas Dean on 09-11-2024 Nucleated RBC Auto Ql (Bld)Nucleated erythrocytes [Presence] in Blood by Automated count0-0.5FSamaritan North Health CenterNucleated RBC Auto Ql (Bld) 0.1 /100{WBC}0-0.5FSamaritan North Health CenterPartial Thromboplastin Timeon 88-44-0187fZKW Coag (Bld) [Time]34.6 tYtigos49.1-36.5[facility] Physician GroupComment on above:Result Comment: A hematocrit value greater than 55% may lead to inaccurate results in coagulation testing. Patients having hematocrit values >55% require a special collection tube for coagulation studies. Please contact the laboratory at [phone] for redraw instructions. PERFORMED BY: [address] [address] PATHOLOGIST [employer] MANAGER MARK AVITIA M.D.Performed By: #### CBC, PTT, PT #### [address] [address] USAPathology Request for Lab Corpon 67-95-7201Bdfziqbyv Request for Lab CorpNormLarkin Community Hospital [facility] Campus Physician GroupComment on above:Order Comment: GI SPECIMENResult Comment: See report. Scanned copy available in EMR. PERFORMED BY: [place] [address] PATHOLOGIST [employer]AT MARKET MANAGER CAT ARAGON M.D.Performed By: #### PATH TO [facility] #### [facility] [address] [place] [address] USAPlatelet mean volume Auto (Bld) [Entitic vol]Ordered By: Chas Dean on 82-77-0954Hgreythr mean volume (Bld) [Entitic vol]Platelet mean volume [Entitic volume] in Blood by Automated count6.6-10.1FSamaritan North Health CenterPlatelets Auto (Bld) [#/Vol]Ordered By: Chas Dean on 07-46-0658Wyvhuqzhg (Bld) [#/Vol]Platelets [#/volume] in Blood by Automated fvhod661-231WwoimclygEast Liverpool City HospitalProthrombin Time INROrdered By: Chas Dean on 69-41-8381VMF Coag (PPP) [Relative time]1.1 {INR}[facility] [place] City HospitalComment on above:Result Comment: INR Therapeutic Range A) Pre- and [...] patients with mechanical heart valves: 3 - 4.5Performed By: #### CBC, PTT, PT #### [facility] [address] [place] [address] USAINR Therapeutic Range A) Pre- and Peroperative OAT started two weeks before surgery. NOT HIP SURGERY: 1.5 - 2.5 HIP SURGERY: 2 - 3B) Primary and secondary prevention of venous THROMBOSIS: 2 - 3C) Active venous thrombosis, pulmonary embolismand prevention of recurrent venous thrombosis: 2 - 3D) Prevention of arterial thromboembolismincluding patients with mechanical heart valves: 3 - 4.5PT Coag (PPP) [Time]13.0 sHigh9.0-12.9[facility] [place] City HospitalComment on above:Result Comment: A hematocrit value greater than 55% may lead to inaccurate results in coagulation testing. Patients having hematocrit values >55% require a special collection tube for coagulation studies. Please contact the laboratory at [phone] for redraw instructions.Performed By: #### CBC, PTT, PT #### [facility] [address] [place] [address] hematocrit value greater than 55% may lead to inaccurate results in coagulation testing. Patientshaving hematocrit values >55% require a special collection tube for coagulation studies. Please contact the laboratory at [phone] for redraw instructions.Prothrombin time (PT)Ordered By: Chas Dean on 20-46-9695XP Coag (PPP) [Time]Prothrombin time (PT)High9.0-12.9 [facility] HospitalComment on above:A hematocrit value greater than 55% may lead to inaccurate results in coagulation testing. Patientshaving hematocrit values >55% require a special collection tube for coagulation studies. Please contact the laboratory at [phone] for redraw instructions. RBC Auto (Bld) [#/Vol]Ordered By: Chas Dean on 46-90-6210AHV (Bld) [#/Vol] Erythrocytes [#/volume] in Blood by Automated count3.90-5.60[facility] [place] [facility] HospitalWBC Auto (Bld) [#/Vol]Ordered By: Chas Dean on 14-03-9678XSE (Bld) [#/Vol]Leukocytes [#/volume] in Blood by Automated count4.1-10.5FSamaritan North Health CenteraPTT in Platelet poor plasma by Coagulation assayOrdered By: Chas Dean on 41-77-5221sRVZ Coag (PPP) [Time]Activated partial thromboplastin time (aPTT) in platelet poor plasma by coagulation a25.1-36.5 [facility] City HospitalComment on above:A hematocrit value greater than 55% may lead to inaccurate results in coagulation testing. Patientshaving hematocrit values >55% require a special collection tube for coagulation studies. Please contact the laboratory at [phone] for redraw instructions. aPTT Coag (PPP) [Time]34.6 s25.1-36.5FSamaritan North Health CenterComment on above:A hematocrit value greater than 55% may lead to inaccurate results in coagulation testing. Patientshaving hematocrit values >55% require a special collection tube for coagulation studies. Please contact the laboratory at [phone] for redraw instructions.CT lung screeningon 44-05-1725ZN lung screeningST. [facility] [place] [address] [place] [address] CT Scan Report Signed Patient: Abhinav Lezama MR#: [id number] : 1960 Acct:[id number] Age/Sex: 64 / M ADM Date: 08/06/24 Loc: [facility] Room: Type: [facility] Attending Dr: Kelechi Martin MD Copies to: [...] months. Impression dictated by: Yannick Lockwood Jr., Mackenzie08/06/2024 12:58 PM Dictation Location: [place] [address] Transcribed By: [facility] 08/06/24 1258 Dictated By: Yannick Lockwood Jr, DO 08/06/24 1255 Signed By: 08/06/24 1258[facility] Physician GroupECG [address] 73-85-0414BKR revealed normal sinus rhythm with sinus bradycardia, left axis deviation, voltage criteria for LVH, diffuse nonspecific ST and T changes, abnormal ECGCPACSAvita Health System Work Phone: basophils Auto (Bld) [#/Vol]on 65-46-6100Eeddgkrlm (Bld) [#/Vol]Automated basophil count0.0-0.1FSamaritan North Health Center Basophils/100 WBC Auto (Bld)on 20-96-1806Slobzrwex/100 WBC (Bld)Automated basophil %0.2-2.0[facility] [place] [facility] HospitalEosinophils/100 WBC Auto (Bld) on 76-04-1622Ypnwooiuxga/100 WBC (Bld)Automated eosinophil %0.9-7.0[facility] [place] [facility] HospitalErythrocyte distribution width Auto (RBC) [Ratio]on 93-37-3213Pqkgxqdjyct distribution width (RBC) [Ratio]Erythrocyte distribution width [Ratio] by Automated count11.0-15.0[facility] Estimated glomerular filtration rate (GFR) non- Americanon 07-25-2024 GFR/1.73 sq M.predicted among non-blacks MDRD (S/P/Bld) [Vol rate/Area]Estimated glomerular filtration rate (GFR) non->=60 mL/min/1.73m 2 [facility] [place] [facility] HospitalHematocrit Auto (Bld) [Volume fraction]on 32-82-0680Pshwfmckpm (Bld) [Volume fraction]Hematocrit [Volume Fraction] of Blood by Automated count42.0-54.0[facility] [place] [facility] HospitalHemoglobin [Mass/volume] in Bloodon 52-38-7005Ukdwhqsczc (Bld) [Mass/Vol]Hemoglobin [Mass/volume] in Blood14.0-18.0[facility] [place] [facility] HospitalINR in Platelet poor plasma by Coagulation assayon 66-28-0390HHA Coag (PPP) [Relative time]INR in Platelet poor plasma by Coagulation assayEast Liverpool City Hospital Comment on above:DESIRED INR:2.0-3.0 CONDITIONS NOT LISTED BELOW2.5-3.5 FOR PROSTHETIC HEART VALVE REPLACEMENT2.5-3.5 RECURRENT THROMBOSISLaboratory - Chemistry and Chemistry - challengeon 83-70-8298Iztdzff [Mass/Vol]8.9 mg/dL 8.5-10.1FSamaritan North Health CenterChloride [Moles/Vol]105 mmol/L98-107 [facility] [place] [facility] HospitalCO2 [Moles/Vol]29.2 mmol/L21.0-32.0[facility] [place] [facility] HospitalCreatinine [Mass/Vol]1.05 mg/dL0.70-1.30[facility] [place] [facility] HospitalGFR/1.73 sq M.predicted MDRD (S/P/Bld) [Vol rate/Area] mL/min/{1.73_m2}>=60 mL/min/1.73m 2FSamaritan North Health CenterGlucose [Mass/Vol]97 mg/gD33-781FrfazyvfjEast Liverpool City HospitalPotassium [Moles/Vol] 4.8 mmol/L3.5-5.1FKnox Community Hospitalodium [Moles/Vol]137 mmol/L 136-145[facility] [place] [facility] HospitalUrea nitrogen [Mass/Vol]11.0 mg/dL 7.0-18.0[facility] [place] [facility] HospitalUrea nitrogen/Creatinine [Mass ratio] 10.5 mg/mgEast Liverpool City HospitalLaboratory - Hematology and Cell countson 98-69-1219Xrravlad granulocytes/100 WBC (Bld)0.4 %0.0-0.5FSamaritan North Health CenterLeukocytes [#/volume] corrected for nucleated erythrocytes in Blood by Automated counon 00-18-3800WBT corrected for nucl RBC Auto (Bld) [#/Vol]Leukocytes [#/volume] corrected for nucleated erythrocytes in Blood by Automated coun4.0-11.0[facility] [place] [facility] HospitalLymphocytes Auto (Bld) [#/Vol]on 70-41-2670Tgcxiagadkv (Bld) [#/Vol]Lymphocytes [#/volume] in Blood by Automated count1.2-3.8[facility] [place] [facility] HospitalLymphocytes/100 WBC Auto (Bld)on 32-13-8775Jxonqizvsqi/100 WBC (Bld)Lymphocytes/100 leukocytes in Blood by Automated count20.5-60.0[facility] HospitalH Auto (RBC) [Entitic mass]on 43-18-1059TRG (RBC) [Entitic mass]MCH [Entitic mass] by Automated count25.9-34.0[facility] HospitalHC Auto (RBC) [Mass/Vol]on 01-13-5038SPVD (RBC) [Mass/Vol]MCHC [Mass/volume] by Automated count29.9-35.2FCentervilleV Auto (RBC) [Entitic vol]on 60-19-5534HYY (RBC) [Entitic vol]MCV [Entitic volume] by Automated count 80.0-94.0[facility] [place] [facility] HospitalMonocytes Auto (Bld) [#/Vol]on 59-29-5873Fiygvppuf (Bld) [#/Vol]Automated blood monocyte countHigh0.3-0.8 [facility] [place] [facility] HospitalMonocytes/100 WBC Auto (Bld)on 07-25-2024 Monocytes/100 WBC (Bld)Automated monocyte %High1.7-12.0[facility] [place] [facility] HospitalNeutrophils Auto (Bld) [#/Vol]on 40-72-3624Omthbowlgfm (Bld) [#/Vol]Neutrophils [#/volume] in Blood by Automated count1.4-6.5FSamaritan North Health CenterNeutrophils/100 WBC Auto (Bld)on 07-25-2024 Neutrophils/100 WBC (Bld)Automated neutrophil %43.0-75.0[facility] [place] [facility] HospitalNo Panel Informationon 62-09-2759Rpfrvsggzvg # (Auto)0.2 10 3/uL 0.0-0.7FSamaritan North Health CenterImmature Granulocyte # (Auto)0.03 10 3/uL0.00-0.03[facility] [place] [facility] HospitalPlatelet mean volume Auto (Bld) [Entitic vol]on 09-05-4148Osgpnqaw mean volume (Bld) [Entitic vol]Platelet mean volume [Entitic volume] in Blood by Automated count9.5-13.5FSamaritan North Health CenterPlatelets Auto (Bld) [#/Vol]on 55-90-9111Lerfaccxr (Bld) [#/Vol] Platelets [#/volume] in Blood by Automated -855BxdrwhxuxEast Liverpool City HospitalProthrombin time (PT)on 80-81-7600PB Coag (PPP) [Time]Prothrombin time (PT)High9.0-11.6FSamaritan North Health CenterRBC Auto (Bld) [#/Vol]on 93-88-6114UJV (Bld) [#/Vol]Erythrocytes [#/volume] in Blood by Automated count 4.70-6.10[facility] Main Campuserum or plasma anion gap determinationon 86-42-5798Hdyog gap [Moles/Vol]Serum or plasma anion gap determinationEast Liverpool City HospitalXR chest 2V*on 93-20-5560KT chest 2V*[facility] [address] XRay Report Signed Patient: Abhinav Lezama MR#: [id number] : 1960 Acct:[id number] Age/Sex: 63 / M ADM Date: 06/14/24 Loc: [facility]CLY Room: Type: [facility] Attending Dr: Sandi Collazo APRN Copies to: [...] AM Dictation Location: RADIO-PC-29 Transcribed By: KIANA 06/14/2447 Dictated By: Jaden Castro MD 06/14/2446 Signed By: 06/14/2447[facility] Physician GroupECG [address] 42-22-5379RZI revealed sinus rhythm with PACs and left axis deviation consistent with left anterior fascicular blockCPPremier Health [facility] Work Phone: Cholesterol in LDL Calc [Mass/Vol]on 06-12-2023 Cholesterol in LDL [Mass/Vol]54.0 mg/dLEast Liverpool City HospitalComment on above:<100 mg/dl DICIOSZ918-444 mg/dl NEAR OR ABOVE ANEOUYQ695-575 mg/dl BORDERLINE RGUI576-905 mg/dl HIGH>190 mg/dl VERY HIGHCholesterol in VLDL Calc [Mass/Vol]on 25-57-9555Bbxkygqbyzt in VLDL [Mass/Vol]48.0 mg/dLEast Liverpool City HospitalEstimated glomerular filtration rate (GFR) non- Americanon 06-00-9357WIW/1.73 sq M.predicted among non-blacks MDRD (S/P/Bld) [Vol rate/Area]mL/min/{1.73_m2}>=60[facility] [place] [facility] HospitalGlobulin Calc (S) [Mass/Vol]on 54-82-9740Rshdgfnz (S) [Mass/Vol]4.4 g/dLEast Liverpool City HospitalLaboratory - Chemistry and Chemistry - challengeon 23-59-6155Zfchebi [Mass/Vol]3.3 g/dL3.4-5.0[facility] [place] [facility] HospitalALP [Catalytic activity/Vol]93 U/H88-630GljindplyEast Liverpool City HospitalALT [Catalytic activity/Vol]28 U/B48-51OiyznqgqxEast Liverpool City HospitalAST [Catalytic activity/Vol]18 U/D22-05HnmohispbEast Liverpool City HospitalBilirubin [Mass/Vol]0.6 mg/dL0.2-1.0[facility] [place] [facility] HospitalCalcium [Mass/Vol]8.6 mg/dL8.5-10.1FSamaritan North Health CenterChloride [Moles/Vol]103 mmol/L 98-107[facility] [place] [facility] HospitalCholesterol [Mass/Vol]135 mg/dL<=200 [facility] [place] [facility] HospitalCholesterol in HDL [Mass/Vol]33 mg/dL40-60 [facility] [place] [facility] HospitalComment on above:> or =60 mg/dl - LOW CARDIOVASCULAR RISK<40 mg/dl - HIGH CARDIOVASCULAR RISKCO2 [Moles/Vol]28.4 mmol/L21.0-32.0[facility] [place] [facility] HospitalCreatinine [Mass/Vol]0.93 mg/dL 0.70-1.30[facility] [place] [facility] HospitalGFR/1.73 sq M.predicted MDRD (S/P/Bld) [Vol rate/Area]mL/min/{1.73_m2}>=60[facility] [place] [facility] HospitalGlucose [Mass/Vol]85 mg/qF84-124QqfhtfnvmEast Liverpool City HospitalPotassium [Moles/Vol] 4.3 mmol/L3.5-5.1FSamaritan North Health CenterProtein [Mass/Vol]7.7 g/dL 6.4-8.2FKnox Community Hospitalodium [Moles/Vol]140 mmol/B083-332 [facility] [place] [facility] HospitalTriglyceride [Mass/Vol]240 mg/dL<=150[facility] [place] [facility] HospitalUrea nitrogen [Mass/Vol]11.0 mg/dL7.0-18.0[facility] [place] [facility] HospitalUrea nitrogen/Creatinine [Mass ratio]11.8 mg/mgWayne HealthCare Main Campuserum or plasma albumin/globulin mass ratioon 06-12-2023 Albumin/Globulin [Mass ratio]0.8 {ratio}[facility] Main Campuserum or plasma anion gap determinationon 34-97-8674Mnbii gap [Moles/Vol]12.9 mmol/L [facility] Main Campuserum or plasma total cholesterol/high density lipoprotein (HDL) cholesterol mass juan miguel 69-55-1650Zebfzzpetvh.total/Cholesterol in HDL [Mass ratio]4.1 {ratio}[facility] HospitalComment on above:3.3 - 4.4 LOW RISK4.4 - 7.1 AVERAGE RISK7.1 - 11.0 MODERATE RISK>11.0 HIGH RISKOffice Visit (Cardiology)on 39-69-3921Omvlkk-up visitDiagnoses/Problems Assessed Paroxysmal atrial fibrillation (427.31) (I48.0) TIA [...] Weight Tips; Status:Complete - Retrospective Authorization; Done: [id number] Some eating tips that can help you lose weight.; Status:Complete - Retrospective Authorization; Done: [id number] Paroxysmal atrial fibrillation Renew: Multaq 400 MG Oral Tablet; TAKE 1 TABLET TWICE DAILY, WITH MORNING AND EVENING MEAL IO EKG Electrocardiogram- 12 Lead; Status:Complete; Done: [id number] Renew: Nebivolol HCl - 10 MG Oral [...] we can help. You may also call 1-305-BBYX-NOW for free resources and assistance.; Status:Complete - Retrospective Authorization; Done: [id number] Tobacco Use Screening; Status:Complete; Done: [id number] Patient Instructions Please bring all medicines, vitamins, [...] in [ 6] months Chief Complaint ABHINAV LEZAMA is being seen for a 6 month [...] twice with recurrences, currently on Multaqand Coumadin.. 2. Class I obesity. Encouraged more [...] complaint. Vitals Vital Signs (more content not included)...NormalUH TouchworksTobacco Screening.on 12-12-2022 Fall risk assessmentb) One or more falls in the last yearMilitary Health System Trendrating 250 DO Work Phone: Tobacco use status CPHSa) YesMilitary Health System Trendrating 250 DO Work Phone: Tobacco Screening.YesMilitary Health System Southtree 250 DO Work Phone: CBC AUTO DIFFon 68-43-9529SDBQ #0.1 103/ulNormal 0.0-0.1Select [facility]ty Hospital - ColumbusComment on above:Performed By: #### PSASC #### [facility] [address] [place] [address] [address] Nabil CheBasophils/100 WBC (Bld)0.9 %Normal0.2-2.0[facility] Comment on above:Performed By: #### PSASC #### [facility] [address] [place] [address] [address] Nabil Steven #0.3 103/ulNormal0.0-0.7The [facility] HospitalComment on above: Performed By: #### PSASC #### [facility] [address] [place] [address] [address] Nabil Vitalosinophils/100 WBC (Bld)3.3 %Normal0.9-7.0[facility] Comment on above:Performed By: #### PSASC #### [facility] [address] [place] [address] Dr. Nabil Vitalrythrocyte distribution width (RBC) [Ratio]13.2 %Cnqrsw87.0-15.0 [facility] HospitalComment on above:Performed By: #### PSASC #### [facility] [address] [place] [address] Dr. Nabil CheHematocrit (Bld) [Volume fraction]51.1 %Ukvjbw46.0-54.0The [facility] Lebanon HospitalComment on above:Performed By: #### PSASC #### [facility] [address] [place] [address] Dr. Nabil CheHemoglobin (Bld) [Mass/Vol]17.8 g/uZQfmpfs11.0-18.0The [facility] HospitalComment on above:Performed By: #### PSASC #### [facility] [address] [place] [address] Dr. Nabil Huang #0.07 10e3/ulCritically high0.00-0.03The [facility] Comment on above:Performed By: #### PSASC #### [facility] [address] [place] [address] Dr. Nabil Huang %0.7 %Critically high0.0-0.5The [facility] HospitalComment on above:Performed By: #### PSASC #### [facility] [address] [place] [address] Dr. Nabil DonaldH #2.1 103/ulNormal1.2-3.8The [facility] HospitalComment on above:Performed By: #### PSASC #### [facility] [address] [place] [address] Dr. Nabil Donaldhocytes/100 WBC (Bld)21.2 %Jucirj49.5-60.0The [facility] HospitalComment on above:Performed By: #### PSASC #### [facility] [address] [place] [address] Dr. Nabil MenjivarUAL DIFF REQNONormalThe [facility] HospitalComment on above: Performed By: #### PSASC #### [facility] [address] [address] [address] Nabil Jalloh (RBC) [Entitic mass]31.5 ffNxryyu11.9-34.0The [facility] HospitalComment on above:Performed By: #### PSASC #### [facility] [address] [place] [address] Dr. Nabil Jalloh (RBC) [Mass/Vol]34.8 g/iZGhxzsj97.9-35.2The [facility] HospitalComment on above:Performed By: #### PSASC #### [facility] [address] [place] [address] Dr. Nabil Jalloh (RBC) [Entitic vol]90.4 eEHyfiir67.0-94.0The [facility] HospitalComment on above:Performed By: #### PSASC #### [facility] [address] [place] [address] Dr. Nabil Agee #1.2 103/ulCritically high0.3-0.8The [facility] Comment on above:Performed By: #### PSASC #### [facility] [address] [place] [address] Dr. Nabil Hardyocytes/100 WBC (Bld)12.1 %Critically high1.7-12.0The [facility] HospitalComment on above:Performed By: #### PSASC #### [facility] [address] [place] [address] Dr. Nabil Stout #6.0 103/ulNormal1.4-6.5The [facility] HospitalComment on above:Performed By: #### PSASC #### [facility] [address] [place] [address] Dr. Nabil Lopezophils/100 WBC (Bld)61.8 %Cookxv47.0-75.0The [facility] HospitalComment on above:Performed By: #### PSASC #### [facility] [address] [address] [address] Nabil Salvador mean volume (Bld) [Entitic vol]10.3 fLNormal9.5-13.5The [facility] on above:Performed By: #### PSASC #### [facility] [address] [place] [address] Dr. Nabil ChePLT203 103/bqPusdgz278-150Mcx [facility] on above: Performed By: #### PSASC #### [facility] [address] [place] [address] Dr. Nabil CheRBC5.65 106/ulNormal4.70-6.10The [facility] HospitalComthree [facility] on above:Performed By: #### PSASC #### [facility] [address] [place] [address] Dr. Nabil CheWBC9.8 103/ulNormal4.0-11.0The [facility] on above: Performed By: #### PSASC #### [facility] [address] [place] [address] Dr. Nabil BajwaID PROFILEon [id number]-HDL RATIO NORMSCleveland Clinic Mercy HospitalComthree rivers health hospital on above:Result Comment: 3.3 - 4.4 LOW RISK 4.4 - 7.1 AVERAGE RISK 7.1 - 11.0 MODERATE RISK >11.0 HIGH RISKPerformed By: #### LIPID, CMP #### [facility] [address] [place] [address] Dr. Nabil Kilgoreesterol [Mass/Vol]231 mg/dLCritically high<=200The [facility] on above:Performed By: #### LIPID, CMP #### [facility] [address] [place] [address] Dr. Nabil Kilgoreesterol in HDL [Mass/Vol]37 mg/dLCritically fvh30-33Cqe [facility] on above:Performed By: #### LIPID, CMP #### [facility] [address] [place] [address] Dr. Nabil Kilgoreesterol in LDL [Mass/Vol]137.0 mg/dLRegency Hospital ToledoComment on above:Performed By: #### LIPID, CMP #### [facility] [address] [place] [address] Dr. Nabil CheCholesterol.total/Cholesterol in HDL [Mass ratio]6.2 {ratio} NormalThe [facility] HospitalComment on above:Performed By: #### LIPID, CMP #### [facility] [address] [place] [address] Dr. Nabil Jay NORMAL> or = 60 mg/dl - LOW CARDIOVASCULAR RISK <40 mg/dl - HIGH CARDIOVASCULAR RISKRegency Hospital ToledoComment on above:Performed By: #### LIPID, CMP #### [facility] [address] [place] [address] Dr. Nabil Valle CALC NORMALSEE BELOWRegency Hospital ToledoComthree rivers health hospital on above:Result Comment: <100 mg/dl OPTIMAL 100 - 129 mg/dl NEAR OR ABOVE OPTIMAL 130 - 159 mg/dl BORDERLINE HIGH 160 - 189 mg/dl HIGH >190 mg/dl VERY HIGH Performed By: #### LIPID, CMP #### [facility] [address] [place] [address] Dr. Nabil CheTriglyceride [Mass/Vol]285 mg/dLCritically high<=150The [facility] on above:Performed By: #### LIPID, CMP #### [facility] [address] [place] [address] Dr. Nabil CheVLDL CALC57.0 mg/dLNoChildren's Hospital of ColumbusComthree rivers health hospital on above: Performed By: #### LIPID, CMP #### [facility] [address] [place] [address] Dr. Nabil ChePROF 14(COMP METB)on [id number] [Mass/Vol]3.7 g/dLNormal 3.4-5.0[facility] on above:Performed By: #### LIPID, CMP #### [facility] [address] [place] [address] Dr. Nabil CheAlbumin/Globulin [Mass ratio]0.8 {ratio}NormalThe [facility] HospitalComment on above:Performed By: #### LIPID, CMP #### [facility] [address] [address] [address] Nabil Gonzales [Catalytic activity/Vol]96 U/VVbfnej43-086Auh [facility] Hospitalment on above:Performed By: #### LIPID, CMP #### [facility] [address] [address] [address] Nabil Ac [Catalytic activity/Vol]42 U/FEopzqe14-20Myl [facility] HospitalComment on above:Performed By: #### LIPID, CMP #### [facility] [address] [address] [address] Nabil Currie gap [Moles/Vol]11.9 mmol/LNormalSelect Medical Specialty [facility] Comment on above:Performed By: #### LIPID, CMP #### [facility] [address] [address] [address] Nabil Richard [Catalytic activity/Vol]23 U/TObnzzs15-25Inj [facility] Hospitalment on above:Performed By: #### LIPID, CMP #### [facility] [address] [address] [address] Nabil CheBilirubin [Mass/Vol]0.5 mg/dLNormal0.2-1.0[facility] Comment on above:Performed By: #### LIPID, CMP #### [facility] [address] [address] [address] Nabil CheCalcium [Mass/Vol]9.1 mg/dLNormal8.5-10.1[facility] Comment on above:Performed By: #### LIPID, CMP #### [facility] [address] [address] [address] Nabil CheChloride [Moles/Vol]104 mmol/QWbozes97-694Iza [facility] Comment on above:Performed By: #### LIPID, CMP #### [facility] [address] [address] [address] Nabil CheCO2 [Moles/Vol]29.7 mmol/LQacwgk45.0-32.0[facility] Comment on above:Performed By: #### LIPID, CMP #### [facility] [address] [address] [address] Nabil CheCreatinine [Mass/Vol]1.07 mg/dLNormal0.70-1.30The [facility] HospitalComment on above:Performed By: #### LIPID, CMP #### [facility] [address] [address] [address] Nabil Roberts-AF BURMESE>60Normal>=60The [facility] HospitalComment on above:Performed By: #### LIPID, CMP #### [facility] [address] [address] [address] Nabil Roberts-NON AF BURMESE>60Normal>=60The [facility] HospitalComment on above:Performed By: #### LIPID, CMP #### [facility] [address] [address] [address] Nabil CheGlobulin (S) [Mass/Vol]4.8 g/dLNormalThe [facility] HospitalComment on above:Performed By: #### LIPID, CMP #### [facility] [address] [address] [address] Nabil CheGlucose [Mass/Vol]106 mg/iWSksvxy86-591RteSelect Medical Specialty Hospital - [place] Comment on above:Performed By: #### LIPID, CMP #### [facility] [address] [address] [address] Nabil ChePotassium [Moles/Vol]4.6 mmol/LNormal3.5-5.1[facility] Comment on above:Performed By: #### LIPID, CMP #### [facility] [address] [address] [address] Nabil CheProtein [Mass/Vol]8.5 g/dLCritically high6.4-8.2[facility] Hospitalment on above:Performed By: #### LIPID, CMP #### [facility] [address] [address] [address] Nabil CheSodium [Moles/Vol]141 mmol/FCrvscl250-628ZeqSelect Medical Specialty Hospital - [place] Comment on above:Performed By: #### LIPID, CMP #### [facility] [address] [place] [address] Dr. Nabil Granado nitrogen [Mass/Vol]13.0 mg/dLNormal7.0-18.0[facility] - ColumbusComment on above:Performed By: #### LIPID, CMP #### [facility] [address] [place] [address] Dr. Nabil Granado nitrogen/Creatinine [Mass ratio]12.1 mg/mgNoSuburban Community Hospital & Brentwood Hospitale [facility] HospitalComment on above:Performed By: #### LIPID, CMP #### [facility] [address] [place] [address] Dr. Nabil ChePROTIMEon [id number] Coag (PPP) [Relative time]3.32 {INR} NormalThe [facility] HospitalComment on above:Performed By: #### PT #### [facility] [address] [place] [address] Dr. Nabil Farah GUIDELINESSEE BELOWRegency Hospital ToledoComment on above:Result Comment: DESIRED INR: 2.0 - 3.0 CONDITIONS NOT LISTED BELOW 2.5 - 3.5 FOR PROSTHETIC HEART VALVE REPLACEMENT 2.5 - 3.5 RECURRENT THROMBOSIS Performed By: #### PT #### [facility] [address] [place] [address] Dr. Nabil ChePT Coag (PPP) [Time]32.9 sCritically high9.0-11.6The [facility] HospitalComment on above:Performed By: #### PT #### [facility] [address] [place] [address] Dr. Nabil CheLab Reportson [id number] Reports [id number]#1.00CD:127[facility] Health SystemPROTIMEon [id number] Coag (PPP) [Relative time]2.82 {INR}NormalSelect Medical Specialty Hospital - ColumbusComment on above:Performed By: #### PT #### [facility] [address] [place] [address] Dr. Nabil Farah GUIDELINESE BELOWRegency Hospital ToledoComment on above:Result Comment: DESIRED INR: 2.0 - 3.0 CONDITIONS NOT LISTED BELOW 2.5 - 3.5 FOR PROSTHETIC HEART VALVE REPLACEMENT 2.5 - 3.5 RECURRENT THROMBOSIS Performed By: #### PT #### [facility] [address] [place] [address] Dr. Nabil ChePT Coag (PPP) [Time]28.2 sCritically high9.0-11.6The [facility] HospitalComment on above:Performed By: #### PT #### [facility] [address] [place] [address] Dr. Nabil Pedro AUTO DIFFon [id number] #0.1 103/ulNormal0.0-0.1The [facility] HospitalComment on above:Performed By: #### PSASC #### [facility] [address] [place] [address] Dr. Nabil Tamayosophils/100 WBC (Bld)1.1 %Normal0.2-2.0[facility] Comment on above:Performed By: #### PSASC #### [facility] [address] [place] [address] Dr. Nabil Steven #0.4 103/ulNormal0.0-0.7The [facility] HospitalComment on above: Performed By: #### PSASC #### [facility] [address] [place] [address] Dr. Nabil Vitalosinophils/100 WBC (Bld)3.7 %Normal0.9-7.0[facility] Comment on above:Performed By: #### PSASC #### [facility] [address] [place] [address] Dr. Nabil Vitalrythrocyte distribution width (RBC) [Ratio]13.2 %Sermnu63.0-15.0 The [facility] HospitalComment on above:Performed By: #### PSASC #### [facility] [address] [place] [address] Dr. Nabil CheHematocrit (Bld) [Volume fraction]49.2 %Vycjcj26.0-54.0The [facility] HospitalComment on above:Performed By: #### PSASC #### [facility] [address] [place] [address] Dr. Nabil CheHemoglobin (Bld) [Mass/Vol]17.3 g/fMLotzig97.0-18.0The [facility] HospitalComment on above:Performed By: #### PSASC #### [facility] [address] [place] [address] Dr. Nabil Huang #0.04 10e3/ulCritically high0.00-0.03[facility] Comment on above:Performed By: #### PSASC #### [facility] [address] [place] [address] Dr. Nabil Huang %0.4 %Normal0.0-0.5The [facility] HospitalComment on above: Performed By: #### PSASC #### [facility] [address] [place] [address] Dr. Nabil Briseno #2.5 103/ulNormal1.2-3.8The [facility] HospitalComment on above:Performed By: #### PSASC #### [facility] [address] [place] [address] Dr. Nabil Dukemphocytes/100 WBC (Bld)26.3 %Wrtvqb59.5-60.0The [facility] HospitalComment on above:Performed By: #### PSASC #### [facility] [address] [place] [address] Dr. Nabil CheMANUAL DIFF REQNONormalThe [facility] HospitalComment on above: Performed By: #### PSASC #### [facility] [address] [place] [address] Dr. Nabil Camara (RBC) [Entitic mass]31.2 bkKplsjw83.9-34.0The [facility] HospitalComment on above:Performed By: #### PSASC #### [facility] [address] [address] [address] Nabil JallohHC (RBC) [Mass/Vol]35.2 g/aROzxvgq49.9-35.2The [facility] HospitalComment on above:Performed By: #### PSASC #### [facility] [address] [place] [address] Dr. Nabil JallohV (RBC) [Entitic vol]88.6 aJDavacg93.0-94.0The [facility] HospitalComment on above:Performed By: #### PSASC #### [facility] [address] [place] [address] Dr. Nabil Agee #1.3 103/ulCritically high0.3-0.8The [facility] Comment on above:Performed By: #### PSASC #### [facility] [address] [place] [address] Dr. Nabil Hardyocytes/100 WBC (Bld)13.3 %Critically high1.7-12.0The [facility] HospitalComment on above:Performed By: #### PSASC #### [facility] [address] [place] [address] Dr. Nabil Stout #5.2 103/ulNormal1.4-6.5The [facility] HospitalComment on above:Performed By: #### PSASC #### [facility] [address] [place] [address] Dr. Nabil Montesinosutrophils/100 WBC (Bld)55.2 %Uodyqj02.0-75.0The [facility] HospitalComment on above:Performed By: #### PSASC #### [facility] [address] [place] [address] Dr. Nabil Grecolet mean volume (Bld) [Entitic vol]10.4 fLNormal9.5-13.5The [facility] HospitalComment on above:Performed By: #### PSASC #### [facility] [address] [place] [address] Dr. Nabil ChePLT199 103/ytYtittj825-980Fql [facility] HospitalComment on above: Performed By: #### PSASC #### [facility] [address] [place], [place] [address] Dr. Nabil CheRBC5.55 106/ulNormal4.70-6.10The [facility] on above:Performed By: #### PSASC #### [facility] [address] [place], [place] [address] Dr. Nabil CheWBC9.4 103/ulNormal4.0-11.0The [facility] HospitalComthree rivers health hospital on above: Performed By: #### PSASC #### [facility] [address] [id number] Nabil Julio Visit (Cardiology)on [id number]-up visit Diagnoses/Problems Assessed Paroxysmal atrial fibrillation (427.31) [...] Weight Tips; Status:Complete - Retrospective Authorization; Done: [id number] Some eating tips that can help you lose weight.; Status:Complete - Retrospective Authorization; Done: [id number] Paroxysmal atrial fibrillation IO EKG Electrocardiogram- 12 Lead; Status:Complete; Done: [id number] SocHx: Current every day smoker You need to stop smoking. Though it is not easy, more than half of all adult smokers have quit. We encourage you to write down all the reasons you should quit smoking and set a quit date for yourself. Ask us how we can help. You may also call 7-553-MXLE-NOW for free resources and assistance.; Status:Complete - Retrospective Authorization; Done: [id number] Tobacco Use Screening; Status:Complete; Done: [id number] Patient Instructions Please bring all medicines, vitamins, and herbal supplements with you when you come to the office. Prescriptions will not be filled unless you are compliant with your follow up appointments or have a follow up appointment scheduled as per instruction of your physician. Refills should be requested at the time of your visit. Follow up in 6 months Chief Complaint ABHINAV LEZAMA is being seen for a month follow-up of. Patient is in the office for follow-up for the problems noted below. He retired last year and is trying to quit smoking but has not succeeded yet. He denies any palpitations since he started taking magnesium dhji-kil-bknawud. He is on Multaq and his rhythm [...] twice with recurrences, currently on Multaqand Coumadin.. 2. Obesity. Encouraged more weight control [...] 10 MG Oral TabletTake 1 tablet daily [place] 3 1000 MG Oral CapsuleTAKE 2 CAPSULE [...] negative for complaint. Vitals Vital Signs Recorded: [id number] 09:01AM Heart Rate52, L Radial Uasnjyjx560, LUE, Sitting Drxhadbuj84, LUE, Sitting Height5 ft 11 in Tjbjfl021 lb BMI Ryeopnhgpb84.75 kg/m2 BSA Calculated2.29 Tobacco Usea) Yes Patient encouraged to stop using tobacco productsYes PHQ-2 #1. Over the last 2 weeks have you felt down, depressed or hopeless? (If yes, answer PHQ-9 below)No PHQ-2 #2. Ove (more content not included)...NormalUH TouchworksPROF CHEM 8 (BAS METB)on [id number] gap [Moles/Vol]12.2 mmol/LNormalThe [facility] Comment on above:Performed By: #### PSASC #### [facility] [address] [address] [address] Nabil CheCalcium [Mass/Vol]9.1 mg/dLNormal8.5-10.1[facility] Comment on above:Performed By: #### PSASC #### [facility] [address] [address] [address] Nabil CheChloride [Moles/Vol]103 mmol/YDaefuz58-736Wxw [facility] Comment on above:Performed By: #### PSASC #### [facility] [address] [place] [address] Dr. Nabil CheCO2 [Moles/Vol]29.0 mmol/TWcngqd37.0-32.0The [facility] Comment on above:Performed By: #### PSASC #### [facility] [address] [place] [address] Dr. Nabil CheCreatinine [Mass/Vol]1.01 mg/dLNormal0.70-1.30The [facility] HospitalComment on above:Performed By: #### PSASC #### [facility] [address] [place] [address] Dr. Nabil VitalGFR-AF BURMESE>60Normal>=60The [facility] HospitalComment on above:Performed By: #### PSASC #### [facility] [address] [place] [address] Dr. Nabil VitalGFR-NON AF BURMESE>60Normal>=60The [facility] HospitalComment on above:Performed By: #### PSASC #### [facility] [address] [place] [address] Dr. Nabil CheGlucose [Mass/Vol]113 mg/dLCritically zusd60-427Dzf [facility] HospitalComment on above:Performed By: #### PSASC #### [facility] [address] [place] [address] Dr. Nabil ChePotassium [Moles/Vol]4.2 mmol/LNormal3.5-5.1The [facility] Comment on above:Performed By: #### PSASC #### [facility] [address] [place] [address] Dr. Nabil CheSodium [Moles/Vol]140 mmol/DPpxbkk298-769Zta [facility] Comment on above:Performed By: #### PSASC #### [facility] [address] [place] [address] Dr. Nabil CheUrea nitrogen [Mass/Vol]9.0 mg/dLNormal7.0-18.0[facility] ColumbusComment on above:Performed By: #### PSASC #### [facility] [address] [place] [address] Dr. Nabil Granado nitrogen/Creatinine [Mass ratio]8.9 mg/mgNoChildren's Hospital of ColumbusComment on above:Performed By: #### PSASC #### [facility] [address] [address] [address] Nabil Chacon Screening.on [id number] depression screening txmtheozxkLgZD-Sgfbscafou-Qlqjpoiy 250 DO Work Phone: Tobacco use status CPHSa) SjlIM-Ymyurfusmi-Rczcvxot 250 DO Work Phone: Tobacco Screening.GbgCU-Lpklbvsakh-Vazgeieo 250 DO Work Phone: Lab Reportson [phone] Reports [id number]#1.00CD:[address] [place], [place] [address]PROTIMEon 90-15-3299YSO Coag (PPP) [Relative time]2.87 {INR}NormalThe [facility] HospitalComment on above:Performed By: #### PT #### [facility] [address] [place] [address] Dr. Nabil Farah GUIDELINESSEE BELOWRegency Hospital ToledoComment on above:Result Comment: DESIRED INR: 2.0 - 3.0 CONDITIONS NOT LISTED BELOW 2.5 - 3.5 FOR PROSTHETIC HEART VALVE REPLACEMENT 2.5 - 3.5 RECURRENT THROMBOSIS Performed By: #### PT #### [facility] [address] [place] [address] Dr. Nabil Peterson Coag (PPP) [Time]28.7 sCritically high9.0-11.6The [facility] HospitalComment on above:Performed By: #### PT #### [facility] [address] [place] [address] Dr. Nabil Bright Reportson [id number] Reports [id number]#1.00CD:[address] [place], [place] [address]PROTIMEon [id number] Coag (PPP) [Relative time]2.17 {INR}NormalSelect Medical Specialty Hospital - ColumbusComment on above:Performed By: #### PSASC #### [facility] [address] [place] [address] Dr. Nabil Farah GUIDELINESSEE [facility] HospitalComment on above:Result Comment: DESIRED INR: 2.0 - 3.0 CONDITIONS NOT LISTED BELOW 2.5 - 3.5 FOR PROSTHETIC HEART VALVE REPLACEMENT 2.5 - 3.5 RECURRENT THROMBOSIS Performed By: #### PSASC #### [facility] [address] [place] [address] Dr. Nabil Peterson Coag (PPP) [Time]22.3 sCritically high9.0-11.6The [facility] HospitalComment on above:Performed By: #### PSASC #### [facility] [address] [place] [address] Dr. Nabil Bright Reportson [id number] Reports [id number]#1.00CD:[address] [place], [place] [address]PROTIMEon [id number] Coag (PPP) [Relative time]1.09 {INR}NormalSelect Medical Specialty Hospital - ColumbusComment on above:Performed By: #### PT #### [facility] [address] [place] [address] Dr. Nabil Farah GUIDELINES[place] [facility] HospitalComment on above:Result Comment: DESIRED INR: 2.0 - 3.0 CONDITIONS NOT LISTED BELOW 2.5 - 3.5 FOR PROSTHETIC HEART VALVE REPLACEMENT 2.5 - 3.5 RECURRENT THROMBOSIS Performed By: #### PT #### [facility] Laboratory [address] [place] [address] Dr. Nabil Peterson Coag (PPP) [Time]11.7 sCritically high9.0-11.6ThElyria Memorial HospitalComment on above:Performed By: #### PT #### [facility] Laboratory [address] [place] [address] Dr. Nabil Bright Reportson 62-66-9716Ocw Reports [id number]#1.00CD:127[facility] SystemPROTIMEon 92-57-1525WBD Coag (PPP) [Relative time]1.11 {INR}NormalSelect Medical Specialty Hospital - ColumbusComment on above:Performed By: #### PSASC #### [facility] Laboratory [address] [place] [address] Dr. Nabil Farah GUIDELINESSEE [facility] Young[facility] HospitalComment on above:Result Comment: DESIRED INR: 2.0 - 3.0 CONDITIONS NOT LISTED BELOW 2.5 - 3.5 FOR PROSTHETIC HEART VALVE REPLACEMENT 2.5 - 3.5 RECURRENT THROMBOSIS Performed By: #### PSASC #### [facility] Laboratory [address] [place] [address] Dr. Nabil Peterson Coag (PPP) [Time]11.9 sCritically high9.0-11.6The [facility] HospitalComment on above:Performed By: #### PSASC #### [facility] Laboratory [address] [place] [address] Dr. Nabil Bright Reportson 05-85-1139Cxm Reports [id number]#1.00CD:[address] [place], [place] [address]PROTIMEon 91-62-9302LUN Coag (PPP) [Relative time]1.84 {INR}NormalSelect Medical Specialty Hospital - ColumbusComment on above:Performed By: #### PT #### [facility] Laboratory [address] [place] [address] Dr. Nabil Farah GUIDELINESSEE [facility] HospitalComment on above:Result Comment: DESIRED INR: 2.0 - 3.0 CONDITIONS NOT LISTED BELOW 2.5 - 3.5 FOR PROSTHETIC HEART VALVE REPLACEMENT 2.5 - 3.5 RECURRENT THROMBOSIS Performed By: #### PT #### [facility] Laboratory [address] [address] [address] Nabil Peterson Coag (PPP) [Time]19.1 sCritically high9.0-11.6The [facility] HospitalComment on above:Performed By: #### PT #### [facility] Laboratory [address] [place] [address] Dr. Nabil Bright Reportson 65-85-1173Zox Reports [id number]#1.00CD:[address] [place], [place] [address]PROTIMEon 69-71-4187MPI Coag (PPP) [Relative time]1.91 {INR}NormalThe [facility] HospitalComment on above:Performed By: #### PSASC #### [facility] Laboratory [address] [place] [address] Dr. Nabil Farah GUIDELINESSEE BELOWRegency Hospital ToledoComment on above:Result Comment: DESIRED INR: 2.0 - 3.0 CONDITIONS NOT LISTED BELOW 2.5 - 3.5 FOR PROSTHETIC HEART VALVE REPLACEMENT 2.5 - 3.5 RECURRENT THROMBOSIS Performed By: #### PSASC #### [facility] Laboratory [address] [place] [address] Dr. Nabil Peterson Coag (PPP) [Time]19.8 sCritically high9.0-11.6The [facility] HospitalComment on above:Performed By: #### PSASC #### [facility] Laboratory [address] [place] [address] Dr. Nabil CheConsultation Noteon 41-99-2477Kscdbnagcqam Note [id number]#1.00CD:127[facility] SystemTobacco Screening.on 54-73-6808Zdbjt depression screening assessmentShriners Hospitals for [facility] 250 DO Work Phone: Tobacco use status CPHSa) [facility] [place] 250 DO Work Phone: Tobacco Screening.YesMilitary [facility] 250 DO Work Phone: Lab Reportson 98-41-6702Jce Reports [id number]#1.00CD:[facility] HospitalNelaVan Wert County HospitalCB AUTO DIFFon 19-08-1576LJSV #0.1 103/ulNormal0.0-0.1The [facility] HospitalComment on above:Performed By: #### CBC #### [facility] Laboratory [address] [place] [address] Dr. Nabil CheBasophils/100 WBC (Bld)0.8 %Normal0.2-2.0[facility] Comment on above:Performed By: #### CBC #### [facility] Laboratory [address] [place] [address] Dr. Nabil Steven #0.3 103/ulNormal0.0-0.7The [facility] HospitalComment on above: Performed By: #### CBC #### [facility] Laboratory [address] [place] [address] Dr. Nabil Vitalosinophils/100 WBC (Bld)3.2 %Normal0.9-7.0[facility] Comment on above:Performed By: #### CBC #### [facility] Laboratory [address] [place] [address] Dr. Nabil Vitalrythrocyte distribution width (RBC) [Ratio]13.1 %Ogmfbv66.0-15.0 The [facility] HospitalComment on above:Performed By: #### CBC #### [facility] Laboratory [address] [place] [address] Dr. Nabil CheHematocrit (Bld) [Volume fraction]46.8 %Vmxfbp67.0-54.0The [facility] HospitalComment on above:Performed By: #### CBC #### [facility] Laboratory [address] [place] [address] Dr. Nabil CheHemoglobin (Bld) [Mass/Vol]16.4 g/qPZzymso26.0-18.0The [facility] HospitalComment on above:Performed By: #### CBC #### [facility] Laboratory [address] [address] [address] Nabil Huang #0.04 10e3/ulCritically high0.00-0.03The [facility] Comment on above:Performed By: #### CBC #### [facility] Laboratory [address] [place] [address] Dr. Nabil Huang %0.4 %Normal0.0-0.5The [facility] HospitalComment on above: Performed By: #### CBC #### [facility] Laboratory [address] [place] [address] Dr. Nabil Briseno #2.8 103/ulNormal1.2-3.8The [facility] HospitalComment on above:Performed By: #### CBC #### [facility] Laboratory [address] [place] [address] Dr. Nabil Donaldhocytes/100 WBC (Bld)29.6 %Ltlvyq35.5-60.0The [facility] HospitalComment on above:Performed By: #### CBC #### [facility] Laboratory [address] [place] [address] Dr. Nabil MenjivarUAL DIFF REQNONormalThe [facility] HospitalComment on above: Performed By: #### CBC #### [facility] Laboratory [address] [place] [address] Dr. Nabil Camara (RBC) [Entitic mass]31.3 jaUflula31.9-34.0The [facility] HospitalComment on above:Performed By: #### CBC #### [facility] Laboratory [address] [place] [address] Dr. Nabil Jalloh (RBC) [Mass/Vol]35.0 g/qBIofxny47.9-35.2The [facility] HospitalComment on above:Performed By: #### CBC #### [facility] Laboratory [address] [place] [address] Dr. Nabil Jalloh (RBC) [Entitic vol]89.3 rMUsexfc12.0-94.0The [facility] HospitalComment on above:Performed By: #### CBC #### [facility] Laboratory [address] [address] [address] Nabil Agee #1.4 103/ulCritically high0.3-0.8The [facility] Comment on above:Performed By: #### CBC #### [facility] Laboratory [address] [address] [address] Nabil Hardyocytes/100 WBC (Bld)14.5 %Critically high1.7-12.0The [facility] HospitalComment on above:Performed By: #### CBC #### [facility] Laboratory [address] [address] [address] Nabil Stout #4.9 103/ulNormal1.4-6.5The [facility] HospitalComment on above:Performed By: #### CBC #### [facility] Laboratory [address] [place] [address] Dr. Nabil Montesinosutrophils/100 WBC (Bld)51.5 %Gepimu10.0-75.0The [facility] HospitalComment on above:Performed By: #### CBC #### [facility] Laboratory [address] [address] [address] Nabil Salvador mean volume (Bld) [Entitic vol]10.6 fLNormal9.5-13.5The [facility] HospitalComment on above:Performed By: #### CBC #### [facility] Laboratory [address] [place] [address] Dr. Nabil ChePLT173 103/zzBakktj202-613Xrr [facility] HospitalComment on above: Performed By: #### CBC #### [facility] Laboratory [address] [place] [address] Dr. Nabil CheRBC5.24 106/ulNormal4.70-6.10The [facility] HospitalComment on above:Performed By: #### CBC #### [facility] Laboratory [address] [place] [address] Dr. Nabil CheWBC9.4 103/ulNormal4.0-11.0The [facility] HospitalComment on above: Performed By: #### CBC #### [facility] Laboratory [address] [address] [address] Nabil ChePROF CHEM 8 (BAS METB)on 43-30-3357Ltpxn gap [Moles/Vol]11.7 mmol/LNormalSelect Medical Specialty Hospital - ColumbusComment on above:Performed By: #### BMP #### [facility] Laboratory [address] [address] [address] Nabil CheCalcium [Mass/Vol]8.1 mg/dLCritically low8.5-10.1The [facility] HospitalComment on above:Performed By: #### BMP #### [facility] Laboratory [address] [address] [address] Nabil CheChloride [Moles/Vol]103 mmol/YWpuarh98-108NiySelect Medical Specialty Hospital - Columbus Comment on above:Performed By: #### BMP #### [facility] Laboratory [address] [place] [address] Dr. Nabil CheCO2 [Moles/Vol]28.1 mmol/RVugxgr13.0-32.0[facility] Comment on above:Performed By: #### BMP #### [facility] Laboratory [address] [address] [address] Nabil CheCreatinine [Mass/Vol]1.34 mg/dLCritically high0.70-1.30The [facility] HospitalComment on above:Performed By: #### BMP #### [facility] Laboratory [address] [address] [address] Nabil VitalGFR-AF BURMESE>60Normal>=60The [facility] HospitalComment on above:Performed By: #### BMP #### [facility] Laboratory [address] [address] [address] Nabil VitalGFR-NON AF NQKGBOLF51 mL/min/1.86s7Zblfucepdb low>=60The [facility] HospitalComthree rivers health hospital on above:Performed By: #### BMP #### [facility] Laboratory [address] [address] [address] Nabil CheGlucose [Mass/Vol]87 mg/iLFplutc69-562PrzSelect Medical Specialty Hospital - Columbus Comment on above:Performed By: #### BMP #### [facility] Laboratory [address] [address] [address] Nabil ChePotassium [Moles/Vol]4.8 mmol/LNormal3.5-5.1[facility] Comment on above:Performed By: #### BMP #### [facility] Laboratory [address] [address] [address] Nabil CheSodium [Moles/Vol]138 mmol/VMygqii166-137Uln [facility] Comment on above:Performed By: #### BMP #### [facility] Laboratory [address] [address] [address] Nabil CheUrea nitrogen [Mass/Vol]14.0 mg/dLNormal7.0-18.0The [facility] HospitalComment on above:Performed By: #### BMP #### [facility] Laboratory [address] [place] [address] Dr. Nabil CheUrea nitrogen/Creatinine [Mass ratio]10.4 mg/mgNoSuburban Community Hospital & Brentwood Hospitale [facility] HospitalComment on above:Performed By: #### BMP #### [facility] Laboratory [address] [place] [address] Dr. Nabil Kern 87-23-6093PJJ Coag (PPP) [Relative time]2.25 {INR} NormalSelect Medical Specialty Hospital - ColumbusComment on above:Performed By: #### PSASC #### [facility] Laboratory [address] [place] [address] Dr. Nabil Farah [place] BELOWRegency Hospital ToledoComment on above:Result Comment: DESIRED INR: 2.0 - 3.0 CONDITIONS NOT LISTED BELOW 2.5 - 3.5 FOR PROSTHETIC HEART VALVE REPLACEMENT 2.5 - 3.5 RECURRENT THROMBOSIS Performed By: #### PSASC #### [facility] Laboratory [address] [place] [address] Dr. Nabil ChePT Coag (PPP) [Time]23.0 sCritically high9.0-11.6The [facility] HospitalComment on above:Performed By: #### PSASC #### [facility] Laboratory [address] [place] [address] Dr. Nabil Bright Reportson 97-24-8144Zoh Reports [id number]#1.00CD:[facility] CenterLab [id number]#1.00CD:CharyMount Carmel Health SystemOutsExcela [facility] Hospital Correspondenceon 24-19-0706Wkzxiqh IP Hospital [id number]#1.00CD:Mary Ruth [facility] Shock Trauma CenterPROTIMEon 85-42-2983CKW Coag (PPP) [Relative time] 1.70 {INR}NormalSelect Medical Specialty Hospital - ColumbusComment on above:Performed By: #### PSASC #### [facility] Laboratory [address] [place] [address] Dr. Nabil Farah GUID[place] [facility] HospitalComment on above:Result Comment: DESIRED INR: 2.0 - 3.0 CONDITIONS NOT LISTED BELOW 2.5 - 3.5 FOR PROSTHETIC HEART VALVE REPLACEMENT 2.5 - 3.5 RECURRENT THROMBOSIS Performed By: #### PSASC #### [facility] Laboratory [address] [place] [address] Dr. Nabil Peterson Coag (PPP) [Time]17.7 sCritically high9.0-11.6The [facility] HospitalComment on above:Performed By: #### PSASC #### [facility] Laboratory [address] [place] [address] Dr. Nabil Bustos 54-23-2822Ukleatwov From: Jarett GUDINO DO To: [facility] - Clinical; Sent: 09/21/2021 19:58:49 EDT Show up: 09/21/2021 19:59:00 EDT Subject: Ambulatory Reminder Due Date/Time: 09/22/2021 19:58:00 EDT MRI is negative Results: Date Result Type Result Name 09/21/2021 17:20 Radiology MRI Brain w/ + w/o Contrast LMOM for patient to return call. Patient returns call, message given and verbalized understanding. 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 CD:[id number] TA6GDptH5OobgNy [file] IGNv (more content not included)...[facility] SystemMRI Brain w/ + w/o Contraston 39-17-8975TBR Brain w/ + w/o ContrastExam Date/Time: 09/16/2021 15:59 EDT Reason for Exam: [...] Technical Comments MultiHance Contrast amount in ml's: 20NoVan Wert County HospitalConsent for Treatmenton 65-16-5687Mhgfnbe for Treatment [id number]#1.00CD:127NoVan Wert County HospitalRAD - MRI Screening Formon 80-82-8785QQO - MRI Screening Form [id number]#1.00CD:127[facility] SystemAmbulatory Visit Summaryon 70-24-7177Rasqgswxyi Visit Summary ABHINAV LEZAMA :1960 Visit Date:09/09/2021 Ambulatory Visit Instructions Your [...] Appointments Follow Up with Jarett GUDINO DO, [facility] When: In 1 year Where: [address] [facility] [address] [place] [address]- You Need to Complete the Following MRI Brain w/o Contrast, 09/09/21, Routine, Order for Future Visit, Transport Mode: Ambulatory, Reason: Headache, No, No, DizzinessNormalTrigeminal neuralgia, Need IAC evaluation, pp_set_radiology_subspecialty, [facility]\.br\ Medica tions\.br\ What How Much When Instructions\.br\ Unchanged cholestyramine (Questran 4 g/ 9 g oral powder) 1 Packets By Mouth 2 times a day\.br\ Unchanged dronedarone (Multaq 400 mg Tab) 1 Tablets By Mouth 2 times a day\.br\ Unchanged magnesium oxide (magnesium oxide 400 mg Tab) TAKE ONE TABLET BY MOUTH DAILY \.br\ Unchanged nebivolol (Bystolic 10 mg Tab) 1 Tablets By Mouth Every day\.br\ Unchangedrabeprazole (Aciphex 20 mg Tab-EC) 1 Tablets By Mouth Every day\.br\ Unchanged warfarin (warfarin 5mg Tab) See instructions Take 1 tablet sunday, , sunday, sunday, and 1.5 tablets(7.5 MG)Sunday, sunday, and sunday \.br\ Allergies\.br\ Pradaxa (Rectal bleeding, Epistaxis, Incontinence)\.br\ penicillins\.br\ Problems\.br\ Ongoing - Any problem that you are currently receiving treatment for.\.br\ Dizziness\.br\ Encounter for monitoring Coumadin therapy\.br\ Hearing loss on right\.br\ Preventative health care\.br\ Screening for malignant neoplasm of prostate\.br\ Trigeminal neuralgia\.br\ Vasovagal attack\.br\ \.br\[facility] HospitalFaguardian hospital Medicine Office/Clinic Noteon 19-95-4394Bmoygk Medicine Office/Clinic NoteChief Complaint Yearly Follow Up HPI Staff Abhinav [...] he has his labs drawn monthly at [facility], but no results are documented or filed in the chart. Also takes Aciphex 20mg once daily. States this is still working well for him. Labs completed at [facility] on 09/05/21. States he has had a colonoscopy within the past [address] Estes ([facility]). History of Present Illness I have reviewed [...] spasm, # 30 tab(s), Refills(s) 0, Pharmacy: [id number], 180.3, cm, 05/20/20 15:18:00 EST, Height/Length Dosing, 108.4, kg, 05/20/20 15:18:00 EST, Weight Dosing Follow-up With When Contact Information Jarett UGDINO DO, FAM In 1 year [address] [place] [address]- Additional Instructions: Problem List/Past Medical [...] Patient Refuses influenza virus vaccine, inactivated 02/12/2013 RecordedNormalHenry County HospitalComment on above:Result Comment: Electronically Signed By: Jarett GUDINO DO\.br\Date and Time Signed: 09/09/21 10:19 EDTLab Reportson 74-43-6215Eft [id number]#1.00CD:127Normal Henry County HospitalTobacco Screening.on 49-66-7147Wvbvcok use status CPHSa) [facility] 250 DO Work Phone: Tobacco Screening.[facility] 250 DO Work Phone: CBCon 04-64-5774Cgruznigwei distribution width (RBC) [Ratio]12.9 %Jzairn84.5 - 14.5UH Nch Healthcare System - North NaplesComment on above:Performed By: #### CBC #### [address] [address]Vbkjifitse (Bld) [Volume fraction]48.1 %Zbbgos99.0 - 52.0[facility] System - North NaplesComment on above:Performed By: #### CBC #### [address] [address]Pbiqnvomsi (Bld) [Mass/Vol]16.7 g/aKHzcjks26.5 - 17.5UH [facility] Healthcare System - North NaplesComment on above:Performed By: #### CBC #### [address] [address]LVCI (RBC) [Mass/Vol]34.7 g/dRElmfpc63.0 - 36.0Sp[facility]ding Rehabilitation HospitalComment on above:Performed By: #### CBC #### [address] [address]YDI (RBC) [Entitic vol]91 xLMudrsp21 - 100Sp[facility]ding Rehabilitation HospitalComment on above:Performed By: #### CBC #### [address] [address]Bjbayhfom (Bld) [#/Vol]182 10*3/oMBmfxnm625 - 450UH [facility] Healthcare System - North NaplesComment on above:Performed By: #### CBC #### [address] [address]AGG (Bld) [#/Vol]5.26 x10E12/LNormal4.50 - 5.90Sp[facility] Rehabilitation HospitalComment on above:Performed By: #### CBC #### [address] [address]JXT (Bld) [#/Vol]9.3 10*3/uLNormal4.4 - 11.3Sp[facility] Rehabilitation HospitalComment on above:Performed By: #### CBC #### [address] [address]BJQTHRPGTCqd 52-15-3309Lauwbnngzq [Mass/Vol]0.87 mg/dLNormal0.50 - 1.30[facility] Rehabilitation HospitalComment on above:Performed By: #### CREAT #### [address] [address]Qjvgrxnocn [Mass/Vol]mg/dLNormal>60[facility] Comment on above:Result Comment: CALCULATIONS OF ESTIMATED GFR ARE PERFORMED USING THE MDRD STUDY EQUATION FOR THE IDMS-TRACEABLE CREATININE METHODS. CLIN CHEM 2007;53:766-72Performed By: #### CREAT #### [address] [address]COPHSAEULBX PANELon 05-36-1914Ioxbr gap [Moles/Vol]12 mmol/L Tagzou52 - 20[facility] System - North NaplesComment on above:Performed By: #### ELECT #### [address] [address]Jicunyxd [Moles/Vol]105 mmol/CCwocdc62 - 107[facility] System - North NaplesComment on above:Performed By: #### ELECT #### [address] [address]KQS5 (Bld) [Moles/Vol]28 mmol/JTnavbo59 - 32[facility] System - North NaplesComment on above:Performed By: #### ELECT #### [address] [address]Uxgeyomhs [Moles/Vol]4.1 mmol/LNormal3.5 - 5.3[facility] System - North NaplesComment on above:Performed By: #### ELECT #### [address] [address]Ipkayh [Moles/Vol]141 mmol/ESwomgc819 - 145UH [facility] System - North NaplesComment on above:Performed By: #### ELECT #### [address] [address]IIAT NITROGENon 68-10-5406Ydts nitrogen [Mass/Vol]12 mg/dLNormal 6 - 23[facility] System - North NaplesComment on above:Performed By: #### UREA #### [address] [address]UIG (SGPT)on 19-03-6409QJU enzyme act/vol18 U/XLuvuit70-59THD HealthcareComment on above:Performed By: #### [id number] ####[facility] [address] [place] [address]ODR (SGOT)on 12-26-2017 AST enzyme act/vol20 U/RQxhhom87-64WSR HealthcareComment on above:Performed By: #### [id number] ####[address] [address]GFDnq 79-54-8328Htjbtiuxtsp distribution width Auto Ratio (RBC)13.4 %Uinwmz06.0-15.4EMH HealthcareComment on above:Performed By: #### [id number] ####[address] [address]Hiwcwtdwup Auto Volume Fraction (Bld)48.6 %Cflopa36.4-54.9[facility] Comment on above:Performed By: #### [id number] ####[address] [address]Uinwcyelce mass conc (Bld)16.3 g/fSFrmkyj43.8-17.7EMH HealthcareComment on above:Performed By: #### [id number] ####[address] [address] MCH Auto Entitic mass (RBC)31.0 atNektsb17.5-32.9EMH HealthcareComment on above: Performed By: #### [id number] ####[facility] [address] [place] [address]LDSH Auto mass conc (RBC)33.5 g/bUEzzmep01.5-35.4EMH HealthcareComment on above:Performed By: #### [id number] ####[facility] [address] [place], [place] [address]NAB Auto Entitic volume (RBC)92.6 gGHsoexn34.3-98.2EMH HealthcareComment on above:Performed By: #### [id number] ####[facility] [address] [place] [address]GVRL Absolute0.00 10*3/uLNormalEMH HealthcareComment on above:Performed By: #### [id number] ####[address] [address]KAYT Automated0.0 /100{WBCs}NormalEMH HealthcareComment on above:Performed By: #### [id number] ####[address] [address]Tpxuxaww mean volume Auto Entitic volume (Bld) 12.0 fLNormal9.9-12.1EMH HealthcareComment on above:Performed By: #### [id number] ####[address] [address] Platelets Auto #/vol (Bld)156 10*3/nARsujit435-510XRO HealthcareComment on above:Performed By: #### [id number] ####[address] [address]ZEV Auto #/vol (Bld)5.25 10*6/uLNormal4.08-6.37 EMH HealthcareComment on above:Performed By: #### [id number] ####[address] [address]GGC SD45.5 fL Wtrzrx03.3-48.6EMH HealthcareComment on above:Performed By: #### [id number] ####[address] [address] WBC Auto #/vol (Bld)7.2 10*3/uLNormal4.2-11.0EMH HealthcareComment on above: Performed By: #### [id number] ####[address] [address]Nvbywdsznqsp 97-86-6731Abnrapugwe mass conc0.92 mg/dL Normal0.50-1.30EMH HealthcareComment on above:Performed By: #### [id number] ####[facility] [address] [place] [address] GFR/1.73 sq M.predicted MDRD vol rate/areamL/min/{1.73_m2}NormalEMH Healthcare Comment on above:Result Comment: Interpretation for Chronic Kidney Disease:Stages 1&2 >60 Healthy or potential kidney damage.Mild decrease of GFR.Stage 3 30-59 Moderate decrease of GFR.Stage 4 15-29 Severe decrease of GFR.Stage 5 <15 Kidney failure or on dialysis.Performed By: #### [id number] ####[facility] [address] [facility] [place] [address] Electrolyte Panelon 01-97-8773Firzv gap 3 molar conc9 mmol/DLnj40-40XVJ HealthcareComment on above:Performed By: #### [id number] ####[facility] [address] [place], [place] [address]Weqhddxa molar atok657 mmol/QReuqin83-414ONX HealthcareComment on above:Performed By: #### [id number] ####[facility] [address] [place] [address] HCO3 molar conc (Bld)29 mmol/NWbaxgw70-94QVL HealthcareComment on above: Performed By: #### [id number] ####[facility] [address] [place], [place] [address]Fpahdchdb molar conc4.1 mmol/LNormal3.5-5.1EMH HealthcareComment on above:Performed By: #### [id number] ####[facility] [address] [place], [place] [address]Mcpfba molar bkjs336 mmol/JBewneo434-474BEY HealthcareComment on above:Performed By: #### [id number] ####[facility] [address] [facility] [place] [address] Urea Nitrogenon 17-93-2989Ljdj nitrogen mass conc10 mg/dLNormal6-23EMH HealthcareComment on above:Performed By: #### [id number] ####[facility] [address] [facility] [place] [address] Vital Signs Date TimeVital SignValuePerforming UcidxobceXehtjdox19-42-8456 14:00-0400Body oyeldb880.34 cmJared Leong MD Work Phone: 1(316)[address] [place], [place] 3303410-20-2025 14:00-0400 Body mass index (BMI) [Ratio]30.7 kg/t5IdaosrJared Leong MD Work Phone: 1419)[address] [place], [place] 3303410-20-2025 14:00-0400 Body .79 kgJared Leong MD Work Phone: 1419)[address] [place], [place] 3303410-20-2025 14:00-0400 Diastolic blood lvmqezcy92 mm[Hg]Jared Leong MD Work Phone: 1(615)[address] [place], [place] 3303410-20-2025 14:00-0400 Heart rate89 /Charla Leong MD Work Phone: 1(398)[address] [place], [place] 3303410-20-2025 14:00-0400 SaO2% (BldA) [Mass fraction]96 %Jared Leong MD Work Phone: 1(419)[address] [place], [place] 3303410-20-2025 14:00-0400 Systolic blood mm[Hg]Jared Leong MD Work Phone: 1(997)[address] [place], [place] 3303408-27-2025 11:35-0400 Body tohukj845.34 cmJared Leong MD Work Phone: 1(443)[address] [place], [place] 3303408-27-2025 11:35-0400 Body mass index (BMI) [Ratio]31.2 kg/m3LxexlfJared Leong MD Work Phone: 1(419)[address] [place], [place] 3303408-27-2025 11:35-0400 Body ttojqg540.6 kgJared Leong MD Work Phone: 1(566)[address] [place], [place] 3303408-27-2025 11:35-0400 Diastolic blood mm[Hg]Jared Leong MD Work Phone: 1(663)[address] [place], [place] 3303408-27-2025 11:35-0400 Heart rate56 /Charla Loeng MD Work Phone: 1(661)[address] [place], [place] 3303408-27-2025 11:35-0400 Systolic blood jkadacnf229 mm[Hg]Jared Leong MD Work Phone: 1(260)[address] [place], [place] 3303407-16-2025 13:12-0400 Body jkuhgh421.34 cmJared Leong MD Work Phone: 1(810)[address] [place], [place] 3303407-16-2025 13:12-0400 Body mass index (BMI) [Ratio]31.1 kg/x8AgrihwJared Leong MD Work Phone: 1419)[address] [place], [place] 3303407-16-2025 13:12-0400 Body ksbnevngbgh89.8 [degF]Jared Leong MD Work Phone: 1(124)[address] [place], [place] 3303407-16-2025 13:12-0400 Body jfxyzk317.37 kgJared Leong MD Work Phone: 1(013)[address] [place], [place] 3303407-16-2025 13:12-0400 Diastolic blood librlsde46 mm[Hg]Jared Leong MD Work Phone: 1(122)[address] [place], [place] 3303407-16-2025 13:12-0400 Heart rate63 /Charla Leong MD Work Phone: 1(510)[address] [place], [place] 3303407-16-2025 13:12-0400 Systolic blood bncamtmm861 mm[Hg]Jared Leong MD Work Phone: 1(887)[address] [place], [place] 3303405-22-2025 09:40-0400 Diastolic blood cwberytv80 mm[Hg]Jared Leong MD Work Phone: 1(770)[address] [place], [place] 3303405-22-2025 09:40-0400 Heart rate58 /Charla Leong MD Work Phone: 1(535)[address] [place], [place] 3303405-22-2025 09:40-0400 Respiratory rate20 /Charla Leong MD Work Phone: 1(116)[address] [place], [place] 3303405-22-2025 09:40-0400 SaO2% (BldA) [Mass fraction]98 %Jared Leong MD Work Phone: 1(084)539-43[facility]05-22-2025 09:40-0400 Systolic blood cmqahyzy760 mm[Hg]Jared Leong MD Work Phone: 1(725)[address]05-22-2025 07:27-0400 Body .34 cmJared Leong MD Work Phone: 1(448)[address]05-22-2025 07:27-0400 Body wyttvs76.79 kgJared Leong MD Work Phone: 1(644)[address]04-29-2025 14:31-0400 Body aawlhx470.34 cmJared Leong MD Work Phone: 1(078)[address]04-29-2025 14:31-0400 Body mass index (BMI) [Ratio]30.8 kg/g5SdhhxmJared Leong MD Work Phone: 1(642)[address] [place], [place] 3303404-29-2025 14:31-0400 Body ymfufe249.24 kgJared Leong MD Work Phone: 1(268)[address]04-29-2025 14:31-0400 Diastolic blood daasktfk32 mm[Hg]Jraed Leong MD Work Phone: 1(011)[address]04-29-2025 14:31-0400 Heart rate64 /Charla Leong MD Work Phone: 1(370)[address]04-29-2025 14:31-0400 Respiratory rate20 /Charla Leong MD Work Phone: 1(392)[address]04-29-2025 14:31-0400 SaO2% (BldA) [Mass fraction]97 %Jared Leong MD Work Phone: 1(551)[address]13 [address]04-29-2025 14:31-0400 Systolic blood ctvykcvm467 mm[Hg]Jared Leong MD Work Phone: 1(943)[address]04-25-2025 10:07-0400 Body sqziag190.34 cmJared Leong MD Work Phone: [facility]04-25-2025 10:07-0400 Body mass index (BMI) [Ratio]30.7 kg/g6LbeirnJared Leong MD Work Phone: [facility]04-25-2025 10:07-0400 Body xqovvz86.79 kgJared Leong MD Work Phone: [facility]04-25-2025 10:07-0400 Diastolic blood euxqvprq63 mm[Hg]Jared Leong MD Work Phone: [facility]04-25-2025 10:07-0400 Heart rate57 /Charla Leong MD Work Phone: [facility]04-25-2025 10:07-0400 Systolic blood woiaijao882 mm[Hg]Jared Leong MD Work Phone: 1(931)750-96[facility]04-11-2025 13:19-0400 Body .3 cmKo Erickson MD Work Phone: 1(023)[address]04-11-2025 13:19-0400 Body mass index (BMI) [Ratio]30.91 kg/g2NazufrKo Erickson MD Work Phone: 4(505)451-[address] [place], [place] 4568604-11-2025 13:19-0400 Body rqviut222.52 kgKo Erickson MD Work Phone: 9(227)623-[address] [place], [place] 4568604-11-2025 13:19-0400 Diastolic blood ssigobjm26 mm[Hg]Ko Erickson MD Work Phone: 6(633)402-[address] [place], [place] 4568604-11-2025 13:19-0400 Heart rate58 /Glo Erickson MD Work Phone: 4(667)[address]04-11-2025 13:19-0400 Systolic blood fcbjppko785 mm[Hg]Ko Erickson MD Work Phone: 0(578)416-[address] [place], [place] 4568602-25-2025 10:48-0500 Body vwayll294.34 cmMarcia Leong MD Work Phone: 1(581)[address]02-25-2025 10:48-0500 Body mass index (BMI) [Ratio]30.5 kg/y2CuhorxJared Leong MD Work Phone: 1(664)23613 [address]02-25-2025 10:48-0500 Body .33 kgJared Leong MD Work Phone: 1(044)[address] [place], [place] 3303402-25-2025 10:48-0500 Diastolic blood mm[Hg]Jared Leong MD Work Phone: 1(178)[address] [place], [place] 3303402-25-2025 10:48-0500 Heart rate58 /minJared Leong MD Work Phone: 1(477)[address] [place], [place] 3303402-25-2025 10:48-0500 Systolic blood mpovezfg628 mm[Hg]Jared Leong MD Work Phone: 1(773)[address] [place], [place] 3303402-22-2025 09:15-0500 SaO2% (BldA) [Mass fraction]96 %Jared Leong MD Work Phone: 1(273)[address] [place], [place] 3303402-22-2025 09:06-0500 Body .34 cmJared Leong MD Work Phone: 1(350)[address] [place], [place] 3303402-22-2025 09:06-0500 Body mass index (BMI) [Ratio]30.4 kg/q5AmscwgJared Leong MD Work Phone: 1(207)[address] [place], [place] 3303402-22-2025 09:06-0500 Body optzspjtbmj09.4 [degF]Jared Leong MD Work Phone: 1(702)[address] [place], [place] 3303402-22-2025 09:06-0500 Body ufbfug25.05 kgJared Leong MD Work Phone: 1(033)[address] [place], [place] 3303402-22-2025 09:06-0500 Diastolic blood ogccslwx32 mm[Hg]Jared Leong MD Work Phone: 1(945)[address] [place], [place] 3303402-22-2025 09:06-0500 Heart rate62 /Charla Leong MD Work Phone: [facility]02-22-2025 09:06-0500 Systolic blood leycfpqh968 mm[Hg]Jared Leong MD Work Phone: [facility]09-13-2024 12:51-0400 Body mnkxyy889.3 cmKo Erickson MD Work Phone: 1(341)373-[address] [place], [place] 4568609-13-2024 12:51-0400 Body mass index (BMI) [Ratio]30.96 kg/t7PaghxfKo Erickson MD Work Phone: 1(736)[address]09-13-2024 12:51-0400 Body eisqdn415.7 kgKo Erickson MD Work Phone: 1(469)[address]09-13-2024 12:51-0400 Diastolic blood gwxmrqev33 mm[Hg]Ko Erickson MD Work Phone: 1(935)525-[address] [place], [place] 4568609-13-2024 12:51-0400 Heart rate63 /Glo Erickson MD Work Phone: 1(589)783-[address] [place], [place] 4568609-13-2024 12:51-0400 Systolic blood yxobajud275 mm[Hg]Ko Ericksno MD Work Phone: 1(181)885-[address] [place], [place] 4568610-24-2023 13:30-0400 Body kwkguk949.61 cmUche Porter Other [employer] Other 10-24-2023 13:30-0400Body mass index (BMI) [Ratio] 32.73 kg/c3GacdsUche Catnguyễn Other [employer] Other 10-24-2023 13:30-0400Body drpryoxgxio26.1 [degF]Uche Porter Other [employer] Other 10-24-2023 13:30-0400Body ehtoml502.96 kgUche Porter Other [employer] Other 10-24-2023 13:30-0400Diastolic blood mm[Hg] Uche Porter Other [employer] Other 10-24-2023 13:30-0400Respiratory rate20 /minUche Catban Other [employer] Other 10-24-2023 13:30-1237GxF3% (BldA) [Mass fraction]96 % Uche Porter Other [employer] Other 10-24-2023 13:30-0400Systolic blood efozzike640 mm[Hg] Uche Proter Other [employer] Other 10-20-2023 10:45-0400Body carvei412.61 cmJared Leong Other [employer] Other 10-20-2023 10:45-0400Body mass index (BMI) [Ratio] 32.92 kg/t2MgcdduJared Leong Other [employer] Other 10-20-2023 10:45-0400Body ceoqai748.59 kgJared Leong Other [employer] Other 10-20-2023 10:45-0400Diastolic blood lirzsknm79 mm[Hg] Jared Leong Other [employer] Other 10-20-2023 10:45-4304WnJ7% (BldA) [Mass fraction]97 % Jared Leong Other [facility] [employer] Other 10-20-2023 10:45-0400Systolic blood fetwdtcf385 mm[Hg] Jared Leong Other [facility] [employer] Other 08-22-2023 09:59-0400Body wjyuag677.34 cmJared Leong Work Phone: mp451-0705XV-Lwabf [place] [employer] 250 DO Work Phone: 1(683) 366-381408-22-2023 09:59-0400Body mass index (BMI) [Ratio] 33.19 kg/v3BgsfjtJared Leong Work Phone: mp248-6217JU-Qcppy [place] [employer] 250 DO Work Phone: 1(837) 415-812308-22-2023 09:59-0400Body surface area Derived from formula2.27 t2SsjtwmJared Leong Work Phone: mp859-2520OD-Yddxi [place] [employer] 250 DO Work Phone: 1(262) 245-370708-22-2023 09:59-0400Body lkzsne645.96 kgJared Leong Work Phone: mp246-0068DA-Hfwff [place] [employer] 250 DO Work Phone: 1(482) 101-671808-22-2023 09:59-0400Diastolic blood mm[Hg] Jared Leong Work Phone: mp209-4737SW-Xlazq [place] [facility] 250 DO Work Phone: 1(869) 143-974008-22-2023 09:59-0400Heart rate66 /minJared Leong Work Phone: mp747-8546LF-Erdna [place] [facility] 250 DO Work Phone: 1(233) 175-145308-22-2023 09:59-0400Systolic blood qaiphnul594 mm[Hg] Jared Leong Work Phone: mp965-6478MO-Sauzc [place] [facility] 250 DO Work Phone: 1(883) 319-493707-18-2023 15:00-0400Body kgococ885.61 cmUche Porter Other [employer] Other 07-18-2023 15:00-0400Body mass index (BMI) [Ratio] 33.14 kg/b8ZlwnfUche Porter Other [employer] Other 07-18-2023 15:00-0400Body zxouvfmbxpp57.8 [degF]Uche Porter Other [employer] Other 07-18-2023 15:00-0400Body ilmibv858.32 kgUche Porter Other [employer] Other 07-18-2023 15:00-0400Diastolic blood uovkibjj76 mm[Hg] Uche Porter Other [employer] Other 07-18-2023 15:00-0400Respiratory rate20 /minUche Porter Other [employer] Other 07-18-2023 15:00-3400VeO7% (BldA) [Mass fraction]96 % Uche Porter Other [employer] Other 07-18-2023 15:00-0400Systolic blood shxzesgm745 mm[Hg] Uche Porter Other [employer] Other 05-15-2023 10:00-0400Body rqdahw921.61 cmJared Leong Other [employer] Other 05-15-2023 10:00-0400Body mass index (BMI) [Ratio] 33.97 kg/y2CmgmvtJared Leong Other [employer] Other 05-15-2023 10:00-0400Body .04 kgEvabrenton Salo Other [employer] Other 05-15-2023 10:00-0400Diastolic blood zwagxtcj64 mm[Hg] Jared Leong Other [place] [employer] Other 05-15-2023 10:00-3278DoN3% (BldA) [Mass fraction]92 % Jaredsusi Leong Other [employer] Other 05-15-2023 10:00-0400Systolic blood tkwsrwwy417 mm[Hg] Jared Leong Other [employer] Other 02-15-2023 09:01-0500Body lmidyq799.34 cmJarett Finney [employer] Work Phone: mp548-9621VI-Mtuqitegbj-[place] 250 DO Work Phone: 1(269) 461-646102-15-2023 09:01-0500Body mass index (BMI) [Ratio] 33.75 kg/i5Mzilimp S [employer] Work Phone: mp624-6907MI-Fcuixrxlsj-[place] 250 DO Work Phone: 1(352) 793-515502-15-2023 09:01-0500Body surface area Derived from formula2.29 p8Rxnuppy S [employer] Work Phone: mp563-0051WV-Xyvrzmuown-[place] 250 DO Work Phone: 1(874) 251-724002-15-2023 09:01-0500Body sqzign591.77 kgJarett Finney [employer] Work Phone: mp113-1452EC-Gumsqykcnh-[place] 250 DO Work Phone: 1(210) 560-513802-15-2023 09:01-0500Diastolic blood bwmauxky30 mm[Hg] Jarett S [employer] Work Phone: mp074-4957NE-Vcchcstelt-[place] 250 DO Work Phone: 1(310) 489-566102-15-2023 09:01-0500Heart rate52 /minJarett Gudino Work Phone: mp555-8889PB-Udquzorhez-[place] 250 DO Work Phone: 1(399) 707-104002-15-2023 09:01-0500Systolic blood bujmywvq366 mm[Hg] Jarett Gudino Work Phone: mp236-4255HF-Ondfuvmygu-[place] 250 DO Work Phone: 1(611) 636-443708-16-2022 09:15-0400Body ozrduw531.34 cmJarett Gudino Work Phone: mp987-4158WZ-Iyzrc [place] [facility] 250 DO Work Phone: 1(582) 729-989308-16-2022 09:15-0400Body mass index (BMI) [Ratio] 32.78 kg/q1OyodkmiJarett Gudino Work Phone: mp662-3881YB-Zjaxu [place] [facility] 250 DO Work Phone: 1(380) 720-374908-16-2022 09:15-0400Body surface area Derived from formula2.26 o9WqimhjdJarett Gudino Work Phone: mp449-6587QB-Abnxy [place] [facility] 250 DO Work Phone: 1(930) 367-931308-16-2022 09:15-0400Body .6 kgJarett Gudino Work Phone: mp478-9986EI-Docod [place] [facility] 250 DO Work Phone: 1(919) 258-384108-16-2022 09:15-0400Diastolic blood exvjxnim86 mm[Hg] Jarett Gudino Work Phone: mp898-2586RF-Wibro [place] [facility] 250 DO Work Phone: 1(307) 520-217308-16-2022 09:15-0400Heart rate50 /minJarett Gudino Work Phone: mp109-8244DM-Exitu [place] [facility] 250 DO Work Phone: 1(727) 964-128908-16-2022 09:15-0400Systolic blood qqmegwgh353 mm[Hg] Jarett Gudino Work Phone: mp486-8144OS-Bnrht [place] [facility] 250 DO Work Phone: 1(723) 260-423105-20-2022 09:34-0400Blood Pressure LocationJarett GUDINO [phone]-[facility]iphAv[facility] 05-20-2022 09:34-0400Body vrkufsgdcnk57.52 [degF] Jarett GUDINO 733-6115Vjhulz-QwneaAv[facility] 05-20-2022 09:34-0400Diastolic blood mydljdey71 mm[Hg] Jarett GUDINO 271-4895Pyaeel-RxcuiAv[facility] 05-20-2022 09:34-0400Heart rate60 /minJarett GUDINO 939-9324Wyfxub-CrpmyAv[facility] 05-20-2022 09:34-2867BzZ7% (BldA) [Mass fraction]95 % Jarett GUDINO 169-4434Reeyzn-XhymfAv[facility] 05-20-2022 09:34-0400Systolic blood dobknsqo002 mm[Hg] Jarett GUDINO 566-8862Uitlox-BnltcAv[facility] 02-01-2022 15:13-0500Body sabckd775.34 cmJarett Gudino Work Phone: mp238-0421KB-Dwejr [place] [facility] 250 DO Work Phone: 1(857) 635-766902-01-2022 15:13-0500Body mass index (BMI) [Ratio] 32.36 kg/e2PbpbpraJarett Gudino Work Phone: mp686-7583JP-Jazoq [place] [facility] 250 DO Work Phone: 1(819) 125-565102-01-2022 15:13-0500Body surface area Derived from formula2.25 c3Jbbbqffadeline Gudino Work Phone: mp154-2607KQ-Ikpmi [place] [facility] 250 DO Work Phone: 1(813) 413-431402-01-2022 15:13-0500Body purzfw417.24 kgJarett Finney [employer] Work Phone: mp970-7241XN-Idcqw [place] [facility] 250 DO Work Phone: 1(626) 696-722002-01-2022 15:13-0500Diastolic blood mm[Hg] Jarett Finney [employer] Work Phone: mp281-2659HV-Mwrjg [place] [facility] 250 DO Work Phone: 1(918) 793-253702-01-2022 15:13-0500Heart rate61 /minJarett Finney [employer] Work Phone: mp694-0512AW-Jpoox [place] [facility] 250 DO Work Phone: 1(154) 898-692302-01-2022 15:13-0500Systolic blood etktkqon471 mm[Hg] Jarett Finney [employer] Work Phone: mp535-3200YF-Ddyrc [place] [facility] 250 DO Work Phone: Encounters Encounter DateEncounter TypeCare ProviderFacilityStart: 02-09-2025 End: 26-21-0590akonpmamwiOudega E Braun MD Work Phone: -[facility] BellevueStart: 02-09-2025 End: 15-57-0246Xxqgwwp encounter procedureAubree Louise DO-[facility] [place] Work Phone: Start: 65-44-5796Hgv-patient / Non-visitJared Leong MD-[facility] Work Phone: Start: 12-17-2024 End: 71-73-2541repyjgrawbZfkzad E Braun MD Work Phone: [facility] Work Phone: Start: 12-17-2024 End: 41-75-0157Cxsibhb encounter procedureJared Leong MD-[facility] Work Phone: Start: 61-17-6198Nqf-patient / Non-visitCatherine El LAYTON-[facility] Work Phone: Start: 11-21-2227Vhz-patient / Non-visitShon Sapp DO-[facility] Work Phone: Start: 11-05-2024 End: 32-62-6765gnrfiuwpunSwwcuf E Braun MD Work Phone: [facility] Work Phone: Start: 11-05-2024 End: 82-85-9150Fbkqykp encounter procedureJared Leong MD-[facility] Work Phone: Start: 73-22-6433Zos-patient / Non-visitJared Leong MD Work Phone: [facility] Work Phone: Start: 09-11-2024 End: 60-25-2352Rdujbrtik to same day surgery centerJared Leong MD Work Phone: [facility] Work Phone: Start: 09-11-2024 End: 33-26-4941irjbapprxtIcbzxf E Braun MD Work Phone: [facility] Work Phone: Start: 08-19-2024 End: 30-93-5796Bgkjzet encounter procedureJared Leong MD Work Phone: [facility] Work Phone: Start: 08-15-2024 End: 20-86-9836Xzpeewa encounter procedureJared Leong MD Work Phone: [facility] Physician [facility] Work Phone: Start: 08-06-2024 End: 61-50-1139Cizeehj encounter procedureJared Leong MD Work Phone: [facility]-[address] Work Phone: Start: 08-06-2024 End: 51-48-6042lovqdkmgvhTvlaus E Braun MD Work Phone: [facility] Work Phone: Start: 08-01-2024 End: 73-92-4989Pfphzh outpatient visit 25 Aminta Erickson MD Work Phone: [facility] on above:Obesity, Class I, BMI 30- 34.9 (Primary Dx); Paroxysmal atrial fibrillation (Multi); High risk medication use; High triglycerides; Palpitations; Mixed hyperlipidemia; PVC (premature ventricular contraction); BMI 30.0-30.9,adult; Current every day smokerStart: 08-01-2024 End: 14-14-4531mnnpymvybvDTWIYX [facility] AmbulatoryStart: 79-19-8071Eal-patient / Non-visitJared Leong MD Work Phone: [facility] Work Phone: Start: 06-17-2024 End: 91-10-1814Eskjlbs encounter procedureJared Leong MD Work Phone: [facility] Work Phone: Start: 06-14-2024 End: 54-64-7729zwewteasrtFteygi M GrobFacility:[facility] Start: 06-14-2024 End: 79-19-1653Aesajpi encounter Steven Leong MD Work Phone: [facility] El[facility]io Work Phone: Start: 01-04-2024 End: 66-45-0700Vovkli outpatient visit 25 minutesKo Erickson MD Work Phone: [facility] on above:Paroxysmal atrial fibrillation (Multi); PVC (premature ventricular contraction); TIA (transient ischemic attack); Mixed hyperlipidemia; High risk medication use; Stage 3a chronic kidney disease (Multi); BMI 30.0-30.9,adult; Current every day smokerStart: 01-04-2024 End: 08-02-5499mjfoydyukeHCRNMK [facility] AmbulatoryStart: 06-30-7165Snzzbfr encounter statusJared Leong MD Work Phone: [facility] Main Campustart: 08-07-2023 End: 35-74-1806imbtjeosquNH Jared Leong Work Phone: [facility] Work Phone: Start: 08-07-2023 End: 74-07-5911Anrysfu encounter procedureMD Jared Leong Work Phone: [facility]-[address] Work Phone: Start: 60-74-3112Bdo-patient / Non-visitMD Jared Leong Work Phone: [facility] Work Phone: Start: 35-65-6218Qjl-patient / Non-visitMD Jared Leong Work Phone: [facility] Work Phone: Start: 02-13-2023 End: 27-35-5254qqflfkcxmaEttdn Chaban Other [facility] [employer] Other Start: 86-33-3528Rlxbeg outpatient visit 25 minutes Uche Amador Pulmonary DiseaseStart: 02-09-2023 End: 42-84-2915bdussgcgnrUiiciy Braun Other [facility] [employer] Other Start: 67-48-3154Gxddqf outpatient visit 15 minutes Jared Odom [facility] ClinicStart: 28-14-9371Ldrhichei encounterJared Leong Work Phone: mp138-6533ML-[facility]va[facility] 250 DO Work Phone: Start: 41-19-4297Zjsrux outpatient visit 25 minutes Jared Leong Work Phone: mp556-3812VB-Vmryn [place] [facility] 250 DO Work Phone: Start: 95-71-3590nxixggjaogDnDr. Jarett Gudino Facility:[id number]: 11-07-2022 End: 04-49-2942wrhjgrzebxMzbdl Chaban Other noCORD:[facility] [employer] Other Start: 95-34-7039Huuwph outpatient visit 15 minutes Kamal GermanG Pulmonary DiseaseStart: 10-30-2022 End: 43-99-6607whbgkqgysxHzopgp Leong Other [employer] Other Start: 34-16-4748Dyywdzldv encounterMarcia [facility] Medical ClinicStart: 09-29-2022 End: 69-01-6756kopnudenmnEmmouh Leong Other [employer] Other Start: 98-76-7563Ddulcamwi encounterMarcia [facility] Medical ClinicStart: 09-21-2022 End: 77-01-8261zapvunnjqlRspidx Leong Other [employer] Other Start: 80-10-4406Ubmbzdflt encounterMarcia [facility] Medical ClinicStart: 68-06-3432Vbrjglxpj for general adult medical examination without abnormal findingsMarcia [facility] Medical ClinicStart: 07-03-4212Pixlusm preventive medicine new patient 40-64yrsMarcia [facility] Medical ClinicStart: 09-04-2022 End: 23-93-1035fbnwmdpnyuSA JARED Jones [employer] Other Start: 07-27-2022 End: 08-64-8224djglodveinUM GREGORY S GRANTFacility:N7Aqios: 06-07-2022 End: 78-90-9767uaraleqvmjQQ HASSAN M IBRELIOTFacility:Z1Arslo: 29-59-6696Fuuxii outpatient visit 25 minutesJarett Gudino Work Phone: 1([phone]) 604-4284307-9595RB-Asmuwwvoft-[place] 250 DO Work Phone: Start: 21-89-4832kbzzvadldgUtmbulatoryDr. Jarett Dhillon Terese Facility:[id number]: 05-24-2022 End: 95-95-0694leyeanxofcOY GREGORY S GRANTFacility:U5Oqhtz: 04-27-2022 End: 57-42-7260jcmgsoyjafOY GREGORY S GRANTFacility:W3Wslkm: 04-07-2022 End: 67-48-5281hkvjmzbvbnFQ GREGORY S GRANTFacility:S8Nlzmb: 03-27-2022 End: 81-65-9135vafvqqikxsMO GREGORY S GRANTFacility:U4Tuywf: 02-22-2022 End: 42-85-2879hynwtwktdiRI GREGORY S GRANTFacility:J2Mnlnt: 01-25-2022 End: 05-39-3454xfmxmszbufNF GREGORY S GRANTFacility:O1Tcdqi: 91-97-7389Vtxkqt outpatient visit 25 minutesJarett Gudino Work Phone: [phone]-Qosvw [facility] 250 DO Work Phone: Start: 11-21-2021 End: 30-85-1907vplyuhtfnmKC GREGORY S GRANTFacility:N3Jpoie: 09-26-2021 End: 41-73-7589jxgacektfbDT GREGORY S GRANTFacility:Y0Oltuz: 09-16-2021 End: 11-90-4147npegmncjxoDealpym S GRANTFacility:FTMCStart: 09-09-2021 End: 91-05-2743ticvydjkfpQgbsxrs S GRANTFacility:FM MilanStart: 09-09-2021 End: 30-75-3717Hwmnttr encounter procedureJarett GUDINO [phone]-WqjqcAv[facility] Start: 09-09-2021 End: 61-07-2675Vcvy adult monitoring check doneJarett GUDINO [phone]-EgmqpAv[facility] Start: 62-74-7519Tgffzp outpatient visit 25 minutes Jarett Gudino Work Phone: [phone]-Fuemp [facility] 250 DO Work Phone: Start: 00-62-3588Neyflcr encounter procedureJarett Gudino Work Phone: [phone]-Zargi [facility] 250 DO Work Phone: Start: 37-47-5317Exryguq encounter procedureJarett Gudino Work Phone: [phone]-Vlynb [facility] [address] [place] Work Phone: Start: 77-63-0453Ms RenewalJarett Gudino Work Phone: [phone]-Ksufs [facility] [address] [place] Work Phone: Start: 34-47-7323Awqmvdc encounterKO ERICKSON Facility:[id number]: 02-20-2017 End: 15-02-8646LkitmohkptVARWALA PHYSICIANFacility:[facility] Procedures DateProcedureProcedure DetailPerforming ClinicianStart: 27-99-1730Zdrcgxnfj colonoscopyJared Leong MD Work Phone: Start: 31-58-1229CA of lungsJared Leong MD Work Phone: Start: 25-21-5225Nky routine ecg w/least 12 lds w/i&r Ko Erickson MD Work Phone: Start: 75-72-5102Mbraa chest X-rayJared Leong MD Work Phone: Start: 45-89-3783Gmo routine ecg w/least 12 lds w/i&r Ko Erickson MD Work Phone: Start: 72-74-3968NR of chest without contrastMD Jared Leong Work Phone: Start: 33-82-2000POU screeningDR JARETT GUDINOComment on above:Performed By: #### PSASC #### [facility] [address] [address] [address] Nabil Pacheco ablation of arrhythmogenic focusJarett Finney Terese Work Phone: CholecystectomyGregory S Terese Work Phone: ColonoscopyJarett S Terese Work Phone: Plan of Treatment DateCare ActivityDetailAuthorStart: 04-01-2025 End: 25-42-2841Aqmuviz encounter lqocwztfs65/10/2025 3:10 PM EST Office Visit [address] [place] [address] Ko Erickson MD [address] [facility] 2, [address] [place] [address] [facility] AlabamaStart: 43-56-7313Klprmxokf vaccinationInfluenza Vaccine (Season Ended)[facility] SystemStart: 09-11-2024 [facility] Main Campustart: 08-01-2024 End: 31-81-9356Fzwehji encounter xwsemauuw68/11/2025 1:30 PM EDT Office Visit [address] [place] [phone] Ko Erickson MD [address] [facility], [address] [place] [address] [facility] AlabamaStart: 32-42-3706Qeavjll referralOur Lady Of Mercy [facility] - [facility] Work Phone: Start: 01-04-2024 End: 48-63-4476Gmokn metabolic 2000 panel - Serum or PlasmaBasic Metabolic Panel Lab Routine Paroxysmal atrial fibrillation (Multi) High risk medication use St age 3a chronic kidney disease (Multi) Expected: 01/04/2024 (Approximate), Expires: 01/03/2025[facility] Service Area Work Phone: Comment on above:Expected: 01/04/2024 (Approximate), Expires: 01/03/2025Start: 01-04-2024 End: 49-75-0474MGY panel - Blood by Automated countCBC Lab Routine Paroxysmal atrial fibrillation (Multi) High risk medication use Expected: 01/04/2024 (Approximate), Expires: 01/03/2025UnFulton [facility] Work Phone: Comment on above:Expected: 01/04/2024 (Approximate), Expires: 01/03/2025Start: 12-81-3397SBVMH-19 Vaccine ()COVID- 19 Vaccine ()[facility]: 83-85-3958QNNXF-19 Vaccine ()COVID-19 Vaccine ()[facility]: 01-99-6416Dbahjarxg vaccination Influenza Vaccine (#1)[facility]: 70-07-6395MXI, Provider: Ko Erickson, Status: Pen, Time: 10:40 AMFUV, Provider: Ko Erickson, Status: Pen, Time: 10:40 AMMPEssentia Health 250 DO Work Phone: Start: 55-37-5752HSZ, Provider: Ko Erickson, Status: Pen, Time: 9:50 AMFUV, Provider: Ko Erickson, Status: Pen, Time: 9:50 SSEI-Uhvtavqbzl-Yvpsniyj 250 DO Work Phone: Start: 52-02-9761hbfneymmcbFkulzxaqcfFpwmivnt:FM [place] Start: 75-73-1330OCB, Provider: Ko Erickson, Status: Pen, Time: 9:10 AMFUV, Provider: Ko Erickson, Status: Pen, Time: 9:10 AMMPEssentia Health 250 DO Work Phone: Start: 14-61-7121QMJ, Provider: Ko Erickson, Status: Pen, Time: 9:10 AMFUV, Provider: Ko Erickson, Status: Pen, Time: 9:10 AMMP-[facility] 250 DO Work Phone: Start: 66-11-0148MVA High Risk: (Elderly (60+) or Population) (1 - Risk 60-74 years 1-dose series)RSV High Risk: (Elderly (60+) or Population) (1 - Risk 60-74 years 1-dose series)[facility]: 11-24-8502WFX patients and/or patients aged 60+ years (1 - 1-dose 60+ series)RSV patients and/or patients aged 60+ years (1 - 1-dose 60+ series)[facility]: 88-63-8243YTW, Provider: Ko Erickson, Status: Pen, Time: 3:00 PMFUV, Provider: Ko Erickson, Status: Pen, Time: 3:00 PMMPMelrose Area Hospital-[place] [address] [place] Work Phone: Start: 91-82-3077QUJKH CARLITOS, Provider: YESSICA PETER RIVERBOAT CAPTAIN 1,[id number], Status: Pen, Time: 10:30 AMEVENT CARLITOS, Provider: YESSICA PETER RIVERBOAT CAPTAIN 1,[id number], Status: Pen, Time: 10:30 AMBigfork [facility]-[place] [address] [place] Work Phone: Start: 51-31-4580Wzouka Vaccines (1 of 2)Zoster Vaccines (1 of 2)[facility] SystemStart: 50-76-1098Aylrabcjtokr vaccinationPneumococcal Vaccine (2 of 2 - PCV)[facility] Start: 40-88-2021Zaoljmcvwpzb Vaccine: Pediatrics (0 to 5 Years) and At-Risk Patients (6 to 64 Years) (2 of 2 - PCV)Pneumococcal Vaccine: Pediatrics (0 to 5 Years) and At-Risk Patients (6 to 64 Years) (2 of 2 - PCV)[facility]: 72-16-8926XTcA/Tdap/Td Vaccines (1 - Tdap)DTaP/Tdap/Td Vaccines (1 - Tdap)[facility]: 60-44-2223Syjne screening for proteinCKD: Urine Protein ScreeningGrand [facility] Hospital: 06-51-6954Ikwhcfkz mellitus screeningDiabetes Screening [facility]: 32-30-4784Yiozkazbi C screeningHepatitis C ScreeningGrand [facility]: 30-52-3785KDF Vaccines (1 of 1 - Standard series)MMR Vaccines (1 of 1 - Standard series)[facility]: 83-31-3495NMU screeningHIV ScreeningGrand Lake Joint Township District [facility] Hospital: 01-19-4493Xpfxy panelLipid PanelUnMercy Health St. [facility] Hospital: 97-16-9599Kqgwvrfrp for malignant neoplasm of colonUnMercy Health St. [facility]: 22-20-0084Ebvoab Adult PhysicalYearly Adult PhysicalUnFulton County Health CenterCT Sinuses WO contrastEast Liverpool City HospitalCT Unspecified body [facility] HospitalMR Unspecified body [facility] HospitalPatient EducationFormerly [facility], [facility] Hemorrhoids Discharge Instructions Know your MedSt[facility] Colon Polypectomy Discharge InstructionsOhio State [facility]ing [facility] Ctr Work Phone: Patient referralOhio State Harding Hospital Ctr Work Phone: XR Chest 2 ViewsAdventhealth Waterford Lakes Er Immunizations Immunization DateImmunizationNotesCare YodufnruUitqurqp81-54-8829dzopulbft virus vaccine, unspecified formulationGregory S Terese Work Phone: [phone]-[facility]isugLakes [facility] 250 DO Work Phone: [phone]) [phone]tfwwg virus vaccine, unspecified formulationGregory TERESE [phone]-KdafsSouthern [facility] Andrew 01875681-85-1085zdxgriuqpqvi polysaccharide vaccine, 23 valentGregory S Terese Work Phone: [phone]-DjfisLakes Medical Center 250 DO Work Phone: [phone]) 617-472601233561-58-4301yvwfccjnyvfm polysaccharide vaccine, 23 valentGregory S Terese Work Phone: [phone]-Yhzni [facility] 250 DO Work Phone: influenza virus vaccine, unspecified formulation Jarett Gudino Work Phone: [phone]-[facility] 250 DO Work Phone: Comment on above:[phone]: Highlighted row has not occurred!85-47-4008wjgvgpeer virus vaccine, unspecified formulation Jarett GUDINO [phone]-SvylzAvita Health System [facility] Payers DatePayer CategoryPayerPolicy [id number] of Defense ( and others) [employer] [id number] 2023-Present [address] [place] [id number] 58-10-1095NRNVXAY ()[employer] [id number].7.9.394432.252206.26356-02-0882Ixbxuta [id number] 2.0.1.400828.3.57[id number] 2.0.1.027530.3.57[id number] 2.0.1.053893.3.57[id number] 2.0.1.410136.3.57[id number] 2.16.840.1.581476.3.57[id number] 2.16.840.1.373207.3.57[id number] 2.16.840.1.103330.3.57[id number] 2.16.840.1.836709.3.57[id number] 2.16.840.1.399534.3.57[id number] 2.16.840.1.962765.3.57[id number] 2.16.840.1.249438.3.57[id number] 2.16.840.1.584691.3.57[id number] 2.16.840.1.954006.3.57[id number] 2.16.840.1.311322.3.579.2.55205-13-3250Wltmyqy8549388 2.16.840.1.476519.3.579.2.20[id number] 2.16.840.1.004793.3.579.[id number] 2.16.840.1.225280.3.579.2.8[id number] 2.16.840.1.169598.3.579.2.1[id number] 2.16.840.1.478697.3.579.2.854474-18-4419Situwhgwkb of Defense ( and others)[id number] 2.16.840.1.721991.3.579.2.531Unknown [id number] 2.840.1.32[id number] 2.840.1.815396.3.579.2.531 Social History DateTypeDetailFacilityStart: 01-04-2024 End: 78-84-3678Imkkb caffeine consumptionDaily caffeine consumptionLakes Medical Center 250 DO Work Phone: Comment on above:1-2 mixed drinks a month;1 ppd;1-2 mixed drinks a week;1 decaff coffee;Start: 30-63-0742Ouurnha smoking statusHeavy tobacco smoker (finding)[facility] Tobacco smoking statusNeverAvita Health System [facility] Hospital Start: 01-04-2024 End: 05-30-3797Jnp Assigned At [facility] Start: 16-34-4400Pez Assigned At [facility] Hospitaltart: 01-04-2024 End: 07-84-5552Kpnykhv smoking status NHISSmokes tobacco dailyUnFulton County Health CenterHistory of tobacco useCigarette SmokerUnFulton County Health Center Work Phone: Start: 91-98-2673Uoikcbz use and exposureSmokeless tobacco non-userUnFulton County Health Center Work Phone: Start: 01-04-2024 End: 88-29-9219Toszgwmxw beverage intakeCurrent drinker of alcohol (finding) [facility] Work Phone: Start: 17-88-1702Ycwjbsr CommentoccasionallyAvita Health System Work Phone: Start: 29-60-6582Fjq assigned at birthNot on file [facility] Work Phone: Start: 12-25-2023 End: 17-22-7622Ynwmxcsm to SARS-CoV-2 (event)Not sureAvita Health SystemStart: 08-14-2023 End: 87-26-0162Qwouvrt smoking status NHISSmoker (finding)[facility] Main Campustart: 08-07-2024 End: 45-01-5167LjzWnfv (finding)[facility] Goals DatePatient GoalDesired Activity/State Clinical Notes 08-25-2021 to 12-17-2024 Note Date & XjecAorqUxkjbtqk76-88-1893 Evaluation note* Diagnosis Onset Date Resolution Status Admit Date Abnormal CT of brain acuteAugust 2024 11:12amDiplopiaacuteAugust 2024 11:12amHeadache acuteAugust 2024 11:12amLung noduleacuteAugust 2024 11:12amAtrial fibrillationacuteOctober 2024 1:29pmDiplopiaacuteOctober 2024 1:29pm HypersomniaacuteOctober 2024 1:29pmTrigeminal neuralgiaacuteOctober 2024 1:29pm [facility] Work Phone: 1(294) 719-569007-16-2025 Evaluation note* Diagnosis Onset Date Resolution Status Admit Date Chronic maxillary sinusitis acuteJuly 2024 1:03pmSeasonal affective disorder in remissionacuteJuly 2024 1:03pm [facility] Work Phone: 1(562) 651-134805-22-2025 History and physical [id number] Gastroenterology H&P Signed Patient: Abhinav Lezama MR#: [id number] : 1960 Acct:[id number] Age/Sex: 64 / M Adm Date: Loc: Room: Type: [facility] Attending Dr: Chas Dean MD Copies [...] Dean MD 09/11/2456 Signed By: 09/11/24 0856 [facility]05-22-2025 [address] [id number] Colonoscopy Procedure Report Signed Patient: Abhinav Lezama MR#: [id number] : 1960 Acct:[id number] Age/Sex: 64 / M Adm Date: Loc: Room: Type: [facility] Attending Dr: Chas Dean MD Copies [...] was slowly withdrawnwith the findings as below. Dell bowel prep score was good. Findings: Cecum: [...] MD 09/11/24 0857 Signed By: 09/11/24 0910 [facility]04-25-2025 Evaluation note* Diagnosis Onset Date Resolution Status Admit Date Colon cancer screening acuteApril 2024 10:00amGERD without esophagitisacuteApril 2024 10:00amPost-cholecystectomy syndromeacuteApril 25th, 2025 10:00amSecondary bile acid malabsorptionacuteApril 2024 10:00amLung noduleacuteApril 2024 2:18pmTobacco use disorderacuteApril 2024 2:18pm [facility] Work Phone: 1(568) 778-214104-25-2025 Evaluation note* Diagnosis Onset Date Resolution Status Admit Date Colon cancer screening acuteApril 2024 10:00amGERD without esophagitisacuteApril 2024 10:00amPost-cholecystectomy syndromeacuteApril 2024 10:00amSecondary bile acid malabsorptionacuteApril 2024 10:00amLung noduleacuteApril 2024 2:18pmTobacco use disorderacuteApril 2024 2:18pmChronic maxillary sinusitisacuteJuly 2024 1:03pm [facility] Work Phone: 1(297) 982-969004-16-2025 Radiology Diagnostic study noteST. AN[facility]ON[facility] [address] CT Scan Report Signed Patient: Abhinav Lezama MR#: [id number] : 1960 Acct:[id number] Age/Sex: 64 / M ADM Date: 5 Loc: [facility] Room: Type: [facility] Attending Dr: Kelechi Martin MD Copies to: [...] Lockwood Jr., D.OSwapna08/06/2024 12:58 PM Dictation Location: [address] [place] [address] Transcribed By: [facility] 08/06/24 1258 Dictated By: Yannick Lockwood Jr, DO 08/06/24 1255 Signed By: 08/06/24 1258 [facility]04-11-2025 History of Present illness Narrative * Ko Erickson MD - 08/01/2024 1:30 PM EDT Chief Complaint Patient presents with Follow-up Patient here for 6 month follow up, c/o occasional irregular heartbeat with dizziness and fatigue, will last approximately a day. Danielle Lezama is a 64 y.o. male HPI Abhinav [...] currently on pravastatin, recent lab data from [facility] were requested. Review of Systems Constitutional: [...] by mouth. As directed as directed by [facility], Disp: , Rfl: Assessment/Plan 1. Paroxysmal atrial [...] the direction and in the presence of oK Erickson MD. Provider Attestation - Scribe documentation All medical record entries made by the Scribe were at my direction and personally dictated by me. Ihave reviewed the chart and agree that the record accurately reflects my personal performance of the history, physical exam, discussion and plan. documented in this encounterAvita Health System Work Phone: 1(148) 122-209304-11-2025 Instructions* Patient Instructions* Nicolasa Bradshaw RN - [...] Provided instructions on exercise. documented in this [facility] Work Phone: 1(789) 793-597802-22-2025 Evaluation note* Diagnosis Onset Date Resolution Status Admit Date Dizziness acuteFebruary 2024 9:03amShortness of breathacuteFebruary 2024 9:03amViral URI with coughacuteFebruary 2024 9:03amColon cancer screening acuteFebruary 2024 10:45amPost-cholecystectomy syndromeacuteFebruary 2024 10:45amShortness of breathacuteFebruary 2024 10:45amTobacco use disorderacuteFebruary 2024 10:45am [facility] Work Phone: 1(507) 495-613209-13-2024 History of Present illness Narrative* Ko Erickson MD - 01/04/2024 12:50 PM EDT Subjective Abhinav Lezama is a 63 y.o. male Chief Complaint [...] by mouth. As directed as directed by [facility], Disp: , Rfl: Assessment/Plan 1. Paroxysmal atrial fibrillation (Multi) Follow Up In Cardiology 2. PVC (premature ventricular contraction) 3. TIA (transient ischemic attack) 4. Mixed hyperlipidemia 5. High risk medication use 6. Stage 3a chronic kidney disease (Multi) 7. BMI 30.0-30.9,adult 8. Current every day smoker Scribe Attestation By signing my name below, Ladonna Patricio Mindy Spears LPNibe attest that this documentation has been prepared under the direction and in the presence of Ko Erickson MD. Provider Attestation - Scribe documentation All medical record entries made by the Scribe were at my direction and personally dictated by me. Ihave reviewed the chart and agree that the record accurately reflects my personal performance of the history, physical exam, discussion and plan. documented in this encounterAvita Health System Work Phone: 1(542) 760-296109-13-2024 Instructions* Patient Instructions* Ladonna Zendejas LPN - [...] through Care Everywhere. * Heart Healthy Diet (Welsh) documented in this encounterAvita Health System Work Phone: 1(346) 842-158610-24-2023 Evaluation note* Encounter Date Diagnosis Assessment Notes Treatment Notes Treatment Clinical Notes Jan, Lung nodule (ICD-10 - R91.1) Jan,Tobacco use disorder (ICD-10 - F17.200) [facility] Other 10-20-2023 Evaluation note* Encounter Date Diagnosis Assessment Notes Treatment Notes Treatment Clinical Notes Jan, Benign paroxysmal po sitional vertigo, unspecified laterality (ICD- 10 - H81.10) Order printed for PT. Pt will call and set up appt. Jan,Mixed hyperlipidemia (ICD-10 - E78.2)Recheck labs. Pt had adverse side effects to crestor. [facility] Other 07-18-2023 Evaluation note* Encounter Date Diagnosis Assessment Notes Treatment Notes Treatment Clinical Notes Oct, Lung nodule (ICD-10 - R91.1) Oct,Nicotine dependence, cigarettes, uncomplicated (ICD-10 - F17.210) [facility] Other 05-15-2023 Evaluation note* Encounter Date Diagnosis Assessment Notes Treatment Notes Treatment Clinical Notes August, Wellness examination (ICD-10 - Z 00.00) Retired - encouraged quitting smoking, healthy diet and exercise August,Mixed hyperlipidemia (ICD-10 - E78.2)presently on Fish oil - will check labs August,Screening PSA (prostate specific antigen) (ICD-10 - Z12.5)pt states he is due for lab August,Intermittent atrial fibrillation (ICD-10 - I48.0)managed by Dr. Finley - will set up with [facility] [place] August,Nicotine dependence, cigarettes, uncomplicated (ICD-10 - F17.210) agrees to LDCT and chantix. discussed side effects of chantix. August,Screening for colon cancer (ICD-10 - Z12.11)agrees to cologuard August,ERD without esophagitis (ICD-10 - K21.9)requests refill of Aciphex. [facility] Other 05-05-2022 Hospital Discharge instructions Follow Up Care 08/25/2021 11:29:08 With:Jarett GUDINO DO, FAM Address: [address] [place] [address]- When:Within 1 Year(s) [facility] Evaluation + Plan note Future Appointments Appointment Date:09/16/2021 04:00:00 PM Scheduled Provider: [facility] () Appointment Date:09/11/2022 10:00:00 AM Scheduled Provider:Jarett GUDINO DO Location:[facility] Appointment Type: Open Future Scheduled Tests Laboratory* PSA Screen, Total 08/29/21 * CBC w/ Auto Diff 08/29/21 * Comprehensive Metabolic Panel 08/29/21 * Lipid Panel 08/29/21 Radiology* MRI Brain w/o Contrast 09/16/21 [facility] Evaluation noteNo TapCommerceNortFly6 Other Evaluation noteNo assessment information available [facility] Work Phone: Evaluation note* Diagnosis Paroxysmal atrial fibrillation (Multi) Atrial fibrillation PVC (premature ventricular contraction) Other premature beats TIA (transient ischemic attack) Unspecified transient cerebral ischemia Mixed hyperlipidemia High risk medication use Stage 3a chronic kidney disease (Multi) BMI 30.0-30.9,adult Current every day smoker documented in this encounter [facility] Work Phone: Evaluation note* Diagnosis Obesity, Class I, BMI 30-34.9- Primary Paroxysmal atrial fibrillation (Multi) Atrial fibrillation High risk medication use High triglycerides Unspecified disorder of lipoid metabolism Palpitations Mixed hyperlipidemia PVC (premature ventricular contraction) Other premature beats BMI 30.0-30.9,adult Current every day smoker documented in this encounter [facility] Work Phone: History and physical note Author Chas Dean [facility] HospitalNote Date/TimeMay 2024 9:50[place] [address] Gastroenterology H&P Signed Patient: Abhinav Leazma MR#: [id number] : 1960 Acct:[id number] Age/Sex: 64 / M Adm Date: 5 Loc: Room: Type: [facility] Attending Dr: Chas Dean MD Copies to: MD Jarde Jaramillo MD~ Date of Service: 09/11/2024 HISTORY [...] <Electronically signed by Chas Dean MD> 09/11/24855 [facility] Work Phone: History general Narrative - Reported* Type Description Date Medical History Afib Medical HistoryIBSMedical HistoryProtruding disc C4-J1Hiiiyawx History Lfsbliqisicchyk6788Cvljrpzg HistoryAblation on heartSurgical HistoryColonoscopy - Dr. Estes2006 [facility] Other Hospital course Narrative No data available for this section [facility] [place] Reason for referral (narrative)No reason for referral information availableCleveland Clinic [facility] Work Phone: Reason for visit Narrative* [...] Diagnosis: PAF * Ordering Physician: Dr. Ko Erickson MD * Enrollment sent to: [employer] * Monitor number [id number] applied. * Holter monitor printed and placed on Dr. Higinio Tyson MD desk to dictate. [facility] 250 DO Work Phone: Summary Purpose Family History Unknown Family Member Name Dates Details Adopted: Other(V68.89, Z02.8 2) Status:ActiveNo pertinent family history: Mother, Father, Sibling(V49.89, Z78.9) Status:Active Unknown Family Member Name Dates Details Adopted: Other(V68.89, Z02.8 2) Status:ActiveNo pertinent family history: Mother, Father, Sibling(V49.89, Z78.9) Status:Active Unknown Family Member Name Dates Details No pertinent family history: Mother, Father, Sibling(V49.89, Z78.9) Status:ActiveAdopted: Other(V68.89, Z02.82) Status:Active Unknown Family Member Name Dates Details Adopted: Other(V68.89, Z02.8 2) Status:ActiveNo pertinent family history: Mother, Father, Sibling(V49.89, Z78.9) Status:Active Unknown Family Member Name Dates Details Adopted: Other(V68.89, Z02.8 2) Status:ActiveNo pertinent family history: Mother, Father, Sibling(V49.89, Z78.9) Status:Active Unknown Family Member Name Dates Details Adopted: Other(V68.89, Z02.8 2) Status:ActiveNo pertinent family history: Mother, Father, Sibling(V49.89, Z78.9) Status:Active Relationship Condition Age at Onset Recorded Date/T osmin father Unknown Not SpecifiedDeceasedUnknown Relationship Condition Age at Onset Recorded Date/T osmin father Unknown motherDeceasedUnknown Relationship Condition Age at Onset Recorded Date/T osmin Not Specified Adopted Unknown fatherDeceasedUnknownmotherDeceasedUnknown Advance Directives Advance Directive Response Recorded Date/ Time Advance Directives No October 09 11:46am Advance Directive Response Recorded Date/ Time Advance Directives Yes September 11 10:21am Chief Complaint * ABHINAV LEZAMA is being seen for a 6 month [...] magnesium oxide 400 mg daily * Ko Erickson MD, FACC * ABHINAV LEZAMA is being seen for a 6 month [...] He has active lifestyle and is in senior care at the present time. His examination is [...] renal function in 6 months. * Ko Erickson MD, FACC * ABHINAV LEZAMA is being seen for a 6 month [...] He has active lifestyle and is in senior care at the present time. His examination is [...] renal function in 6 months. * Ko Erickson MD, [facility] * ABHINAV LEZAMA is being seen for a month follow-up of. * Patient is in the office for follow-up for the problems noted below. He retired last year and is trying to quit smoking but has not succeeded yet. He denies any palpitations since he started taking magnesium mtyg-dxb-cdzafie. He is on Multaq and his rhythm [...] * 8. Atrial bigeminy, asymptomatic * ABHINAV LEZAMA is being seen for a 6 month [...] Complaint Admit Date cough, chest congestion June 14, 025 9:03am R06.02 June 14, 2024 9:26am [...] Chief Complaint Admit Date Ref: postcholecystectomy syndrome, marshallllo w stools August 15, 2024 10:00am CEA: [...] 2024 2: 18pm Chronic maxillary sinusitis November 05, 025 1:03pm Chief Complaint Admit Date sinus pressure November 05, 2024 1:03 pm Amb Documentation December 08, 2024 11 :24am ER F/U [facility], Eyes Crossed December 17 11:12am Reason for Visit Admit Date Chronic maxillary sinusitis November 05 025 1:03pm Seasonal affective disorder in remission November 05, 2024 1:03pm Chief Complaint Admit Date Amb Documentation December 08, 2024 11 :24am ER F/U [facility], Eyes Crossed December 17 11:12am 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 February 09, 2025 1:29pm [...] :29pm Trigeminal neuralgia February 09, 2025 1:29pm Reason for Referral SpecialtyDiagnoses / ProceduresReferred By ContactReferred To Contact Diagnoses Paroxysmal atrial fibrillation (Multi) Procedures ECG 12 Lead Ko Erickson MD 703 [facility] 2, [address] [address] Referral IDStatusReasonStart DateExpiration DateVisits RequestedVisits [id number]/13/20249/13/297732GyrdairagLnbrxrwnw / Procedures Referred By ContactReferred To ContactCardiology Diagnoses Paroxysmal atrial fibrillation (Multi) Procedures Follow Up In Cardiology Ko Erickson MD [address] [facility] [address], [address] [place] [id number] Ko Erickson MD [address] [facility], [address] [place] [address] Referral IDStatusReasonStart DateExpiration DateVisits RequestedVisits [id number] Additional Source Comments (unrecognized sect ion and content) No Status Records FoundNo Status Records FoundNo Status Records FoundNo Status Records FoundNo Status Records FoundNo Status Records FoundNo Status Records FoundNo Status Records FoundNo Status Records Found INFORMATION SOURCE (unrecogn ized section and content) DATE CREATED AUTHOR 10/16/2017 [facility] DATE CREATED AUTHOR AUTHOR'S ORGANIZ ATION 01/30/2018 [facility] DATE CREATED AUTHOR AUTHOR'S ORGANIZ ATION 02/14/2019 [facility] DATE CREATED AUTHOR AUTHOR'S ORGANIZ ATION 07/31/2022 [facility] DATE CREATED AUTHOR AUTHOR'S ORGANIZ ATION 09/05/2022 [facility] DATE CREATED AUTHOR AUTHOR'S ORGANIZ ATION 12/13/2022 [facility] DATE CREATED AUTHOR AUTHOR'S ORGANIZ ATION 12/13/2022 [facility] [facility] DATE CREATED AUTHOR AUTHOR'S ORGANIZ ATION 08/07/2024 [facility] DATE CREATED AUTHOR AUTHOR'S ORGANIZ ATION 09/21/2024 [facility] Reason for Visit (unrecogniz ed section and content) ReasonCommentsFollow-fm4izXmenhjcoyRykvtjolf / ProceduresReferred By Contact Referred To ContactCardiology Diagnoses Paroxysmal atrial fibrillation (Multi) Procedures Follow Up In Cardiology Ko Erickson MD [address] [place] [address], [place] [phone] Ko Erickson MD [address] [place] [address], [place] [phone] Referral IDStatusReasonStart DateExpiration DateVisits RequestedVisits [id number]-orSszmjvv here for 6 month follow up, c/o occasional irregular heartbeat with dizziness and fatigue, will last approximately a day.SpecialtyDiagnoses / Procedures Referred By ContactReferred To ContactCardiology Diagnoses Paroxysmal atrial fibrillation (Multi) Procedures Follow Up In Cardiology Ko Erickson MD [address] [place] [address], [place] [phone] Phone: tel: fax: Ko Erickson MD [address] [place] [address], [place] [phone] Phone: tel: fax: Referral IDStatusReasonStart DateExpiration DateVisits RequestedVisits [id number]/13/20249/ Care Teams (unrecognized sec tion and content) Team Status: Active Member Role Status Dates Jared Leong MD Primary Care Provider Active Team Status: Inactive Member Role Status Dates Jared Leong MD Primary Care Provider Active Start: August 15, 2024 End: August 15Lex Galindo ProviderActiveStart: August 15, 2024 End: August 15, 2024 Team Status: Inactive Member Role Status Dates Jared Leong MD Primary Care Provider Active Start: August 19, 2024 End: August 19Lex Mathias ProviderActiveStart: August 19, 2024 End: August 19, 2024 Team Status: Inactive Member Role Status Dates Jared Leong MD Primary Care Provider Active Start: September 11, 2024 End: September 11reji Dean , MDAttending ProviderActiveStart: September 11, 2024 End: September 11, 2024 Team Status: Active Member Role Status Dates Jared Leong MD Primary Care Provider Active Start: September 11, 2024 Chas Dean , MDAttending ProviderActiveStart: September 11, 2024 Chas Dean MDOther ProviderActiveStart: September 11, 2024 Team Status: Inactive Member Role Status Dates Jared Leong MD Primary Care Provider Active Start: November 05, 2024 End: November 05, 2024Carlee Acostaending ProviderActiveStart: November 05, 2024 End: November 05, 2024 Team Status: Active Member Role Status Dates Jared Leong MD Primary Care Provider Active Start: July 25, 2024 Ko Erickson , MDAttending ProviderActiveStart: July 25, 2024 Team Status: Inactive Member Role Status Dates Jared Leong MD Primary Care Provider Active Start: August 06, 2024 End: August 06patsy Martin , MDAttending ProviderActiveStart: August 06, 2024 End: August 06, 2024 Team Status: Active Member Role Status Dates Jared Leong MD Primary Care Provider Active Start: September 11, 2024 Lex Jaramillo Provider, Other ProviderActiveStart: September 11, 2024 Team Status: Inactive Member Role Status Dates Jared Leong MD Primary Care Provider Active Start: June 14, 2024 End: June 14Smith Correa ProviderActiveStart: June 14, 2024 End: June 14, 2024 [...] Care Provider Active Start: July 27, 2023 MARAH ReynoldsAAttenisabela ProviderActiveStart: July 27, 2023 Team Status: Inactive Member Role Status Dates Jared Leong MD Primary Care Provider Active Start: August 07, 2023 End: August 07, 2023Lex Porras ProviderActiveStart: August 07, 2023 End: August 07, 2023Team MemberRelationshipSpecialtyStart DateEnd Date [facility] Ko Erickson MD [address] [facility] [address] [place] [address] Consulting PhysicianCardiology06/19/23 Team Status: Active Member Role Status Dates Jared Leong MD Primary Care Provider Active Start: December 05, 2024 Arash Will ProviderActiveStart: December 05, 2024 Team Status: Active Member Role Status Dates Jared Leong MD Primary Care Provider Active Start: December 08, 2024 Mable Maki ProviderActiveStart: December 08, 2024 Team Status: Inactive Member Role Status Leyla Leong MD Primary Care Provider Active Start: December 17, 2024 End: December 17, 2024Lex Acosta ProviderActiveStart: December 17, 2024 End: December 17, 2024 Team Status: Active Member Role/Relationship Status Leyla Leong MD Primary Care Provider Active Team Status: Active Member Role/Relationship Status Leyla Leong MD Primary Care Provider Active Start: December 05, 2024 Arash Will ProviderActiveStart: December 05, 2024 Team Status: Active Member Role/Relationship Status Leyla Leong MD Primary Care Provider Active Start: December 08, 2024 Mable Maki ProviderActiveStart: December 08, 2024 Team Status: Inactive Member Role/Relationship Status Leyla Leong MD Primary Care Provider Active Start: December 17, 2024 End: December 17, 2024Lex Acosta ProviderActiveStart: December 17, 2024 End: December 17, 2024 Team Status: Active Member Role/Relationship Status Dates Jared Leong MD Primary Care Provider Active Start: December 24, 2024 Jared Leong MDAjuan carlos ProviderActiveStart: December 24, 2024 Team Status: Inactive Member Role/Relationship Status Dates Jared Leong MD Primary Care Provider Active Start: February 09, 2025 End: February 09, 2025Rockymeredith Louise DODonnsonia ProviderActiveStart: February 09, 2025 End: February 09, 2025 Goals (unrecognized section and content) Goals may [...] BE BASED ON THE PRIMARY CLINICAL RECORDS. [employer] [facility]. provides no warranty or guarantee of the accuracy or completeness of information in this document.
== END 2025-02-10 09:29 | disposition home or self-care (01) ==
LOC: LAB 09:30
PROVIDERS: PCP Family Medicine; Visit Provider Psychiatry & Neurology Neurology
DX: G47.10 Hypersomnia, unspecified (principal); I48.91 Unspecified atrial fibrillation; G50.0 Trigeminal neuralgia; H53.2 Diplopia
CPT/HCPCS: 36415; 85652; 86140

== ENCOUNTER 2025-02-17 19:54 | Outpatient (OUT) | payer OTHER, SELFPAY ==
--- OUTSIDE RECORDS SUMMARY | 2025-02-17 19:57 | XMS_ITS | Clinical Summary ---
Author Organization [facility] Address [address] [place] [address] Care Team Providers Care College Tutor Name Role Phone Unavailable Primary Care Provider Unavailabl e Social History Tobacco UseTypesPacks/DayYears UsedDateSmoking Tobacco: Never AssessedSex and Gender InformationValueDate RecordedSex Assigned at BirthNot on fileLegal Sex Male03/24/2012 7:35 AM ESTGender IdentityNot on fileSexual OrientationNot on file Plan of Treatment Health MaintenanceDue DateLast DoneCommentsAnxiety Dcpwxueps46/14/1980Depression Jyhphjbbn39/14/1980HIV Stikoulbf00/14/1980Hepatitis C Ehriifirs26/14/1980 DTaP,Tdap,Td Vaccine (1 - Tdap)1980Lipid Gwopilpro85/14/1997CT Addjnlgigztl57/14/2007Cologuard (FIT-DNA)07/04/20060024Avchytfgfad38/14/2007 Colorectal Cancer Snqranjle34/14/2007Diabetes Trjlzjerx90/14/2007Fecal Occult Blood2006Prostate Cancer Screening Qspbdrtoyh96/14/2007Sigmoidoscopy 2006Pneumococcal Vaccine: 50+ (1 of 1 - PCV)07/05/2011Shingrix Vaccine (1 of 2)07/05/2011Covid-19 Vaccine (1 - 2024- season)2024Influenza Vaccine (#1)2024RSV Vaccine (1 - 1-dose 75+ series)2036 Insurance
--- OUTSIDE RECORDS SUMMARY | 2025-02-17 19:57 | XMS_ITS | CCD ---
[facility] Organization [facility] [place] Care Team Providers Care Filter Tender Name Role Phone PHYSICIAN, DEFAULT Unavailable Unavailable PHYSICIAN, DEFAULT Unavailable Unavailable KO ERICKSON Unavailable Unavailable TERESE, JARETT Unavailable Unavailable Jarett Gudino Unavailable Unavailable Unavailable Jarett GUDINO Primary Care Physician Jarett GUDINO Referring Unavailable TERESE, Jarett Finney Attending Unavailable TERESE, Jarett Finney Admitting Unavailable TERESE, Jarett Finney Attending Unavailable TERESE, Jarett Finney Attending Unavailable Jared eLong Unavailable TERESE, DR JARETT Finney Consulting Unavailable [...] JARETT Finney Admitting Unavailable TERESE, DR JARETT Finnye Primary Care Unavailable SALO, DR JARED Jones [...] Jared Leong Unavailable Terese, Dr. Jarett Dhillon [facility] Simranvafranck Erickson, Dr. Ko Godoy Attending Simran vailable Dre, Dr. Ko Godoy Referring Simran vailable Terese, Dr. Jarett Dhillon [facility] Unavai labaidan Erickson, Dr. Ko Godoy Attending Simran vailable Erickson, Dr. Ko Godoy Referring Simran vailable MD Jared Leong Primary Care Provider [phone] MD Uche Porter Attending Provider Jared Leong MD Primary Care Provider Ko Erickson MD Unavailable Jared Leong MD Primary Care Provider Ko Erickson MD Unavailable KO ERICKSON Attending Unavailable KO ERICKSON Referring Unavailable JARED LEONG Primary Care Unavailable KO ERICKSON Attending Unavailable KO ERICKSON Referring Unavailable JARED LEONG Primary Care Unavailable Jared Leong MD Primary Care Provider [phone] Sandi Collazo APRN Attending Provider [phone] Kelechi Martin MD Attending Provider Jared Leong [...] Care Provider Shon Rosario DO Attending Provider [phone] America Gallegos CMA Attending Provider UnavailJared Toledo MD Primary Care Provider Jared Leong MD Attending Provider Aubree Louise DO Attending Provider Allergies Allergy ClassificationReported Allergen(s)Allergy TypeDate of OnsetReaction(s) Facility (19 sources)dabigatran etexilate; Translations: [Pradaxa CAPS]Drug Allergy 14-79-5729JobippyiUlkgoqvvrvKindred Hospital [facility] (19 sources)Penicillins; Translations: [Penicillins]Allergy to drug (finding) 42-22-3818lziwltfkteoFERebecca V[place] [address] Work Phone: (2 sources)dabigatran etexilate; Translations: [dabigatran]Drug AllergyRectal hemorrhage (disorder), Bleeding from nose (finding), Incontinence (finding) [facility] [place] (8 sources)Penicillin; Translations: [penicillin]Drug Nyzfduv64-91-3500 anaphylaxisThe [facility] (8 sources)dabigatran etexilate; Translations: [DABIGATRAN ETEXILATE]Drug Vbsqnxv22-47-4255hxmzrydoEmtyxfjno [facility] (1 source)PenicillinsDrug Szdeorq93-59-7985GyfhhcwXhytrjiwjwUniversity Hospitals Par[facility] Center Work Phone: (3 sources)rosuvastatin; Translations: [ROSUVASTATIN]Drug Xgrkqlv79-54-9099 [facility] (1 source)PenicillinsDrug Pmdyqoo55-83-0838UadjvpeJvrrgyschxUniversity Hospitals Parma [facility] Center Work Phone: (1 source)PenicillinsDrug allergy (disorder)39-77-6908XbkomegbiBlanchard Valley Health System Repository (2 sources)buPROPionDrug Pngieof11-42-6960NiitmubwxnXaakocgmzGreen Cross HospitalComment on above:Took wellbutrin for smoking cessation and felt very bad w depressive symptoms. Medications Current Medications MedicationDrug Class(es)DatesSig (Normalized)Sig (Original)Aciphex 20 mg Tab-EC (1 source)Start: 23-99-0011lnsw 1 tablet by mouth once dailyAciphex 20 mg Tab-EC 20 mg = 1 tab(s), Oral, Daily, # 90 tab(s), Refills(s) 3, Pharmacy: [facility], 180.3, cm, 05/20/20 15:18:00 EST, Height/Length Dosing, 108.4, kg, 05/20/20 15:18:00 EST, Weight Dosing Start Date: 05/21/21 Status: Orderedbisoprolol fumarate 5 mg oral tablet (2 sources)beta-Adrenergic BlockerStart: 04-18-2023 End: 22-60-6397oaxjkgslkr (Zebeta) 5 mg tablet Indications: Palpitations TAKE 1 TABLET DAILY (STOP BYSTOLIC NEW START) 90 tablet 3 04/14/2024 Activedronedarone 400 mg oral tablet (20 sources)AntiarrhythmicStart: 08-07-2023 End: 29-76-9573yzff 1 tablet by mouth twice daily at mealtimeDronedarone (Multaq) 400 mg tablet Active 400 MG PO Twice daily August 15, 2024 12:00am must administer with a meal/food Complies with drug therapyStart: 52-66-7093hapv 1 tablet by mouth twice daily at dinnerMultaq 400 MG Oral Tablet TAKE 1 TABLET TWICE DAILY, WITH MORNING AND EVENING MEAL Quantity: 180 Refills: 3 Ordered: 12-Dec-2022 Ko Erickson MD Start : 03-Feb-2021 Activemagnesium oxide 400 mg oral tablet (2 sources)Start: 81-28-8916vlhg 1 tablet by mouth once dailymagnesium oxide 400 mg Tab TAKE ONE TABLET BY MOUTH DAILY Start Date: 09/09/21 Status: OrderedStart: 95-07-8539ucel 1 tablet by mouth once dailyMagnesium Oxide 400 MG Oral Tablet TAKE 1 TABLET DAILY. Quantity: 90 Refills: 3 Ordered: 1-Nfk-0516KydwimfKo Erickson MD Start : 24-May-2021 Active New startnebivolol 10 mg oral tablet (20 sources)Start: 66-22-8695szmn 1 tablet by mouth once dailyNebivolol 10 mg tablet Active 1 TAB PO Daily August 07, 2023 12:00am FreeTextSi tablet Orally Once a day; Note: Source Status: Taking; Provider: German Ivey ( ) Complies with drug therapyStart: 10-77-1853ncvx 1 tablet by mouth once dailyNebivolol Active 1 TAB PO Daily August 07, 2023 12:00am FreeTextSi tablet Orally Once a day; Note: Source Status: Taking; Provider: German Ivey ( )Start: 83-58-4729xgkb 1 tablet by mouth once dailyNebivolol HCl - 10 MG Oral Tablet Take 1 tablet daily Quantity: 90 Refills: 3 Ordered: 12-Dec-2022 Ko Erickson MD Start : 03-Feb-2021 ActiveOXcarbazepine 300 mg oral tablet (1 source)Anti-epileptic AgentStart: 08-21-2059qlut 0.5 mg by mouth twice daily, then take 1 tablet by mouth twice dailyOxcarbazepine (Trileptal) 300 mg tablet Active 0 PO .COMPLEX 60 2 February 09, 2025 12:00am 1/2 bid x 2 then 1 po bid orally; Complies with drug therapyRabeprazole 20 mg tablet,delayed release (DR/EC) (4 sources)Start: 38-29-0333Uytbyqjbzse 20 mg tablet,delayed release (DR/EC) Active 0 .ROUTE .COMPLEX 90 January 28, 2024 8:54am TAKE 1 TABLET DAILYStart: 09-03-2023 End: 96-16-5560Pofzlezbxzd 20 mg tablet,delayed release (DR/EC) Discontinued 0 .ROUTE .COMPLEX September 03, 2023 12:41pm January 28, 2024 8:54am TAKE 1 TABLET DAILYvarenicline 1 mg oral tablet (2 sources)Partial Cholinergic Nicotinic AgonistStart: 14-26-3233oeos 0.5 tablet by mouth once daily, then take 0.5 tablet by mouth twice daily, then take 1 tablet by mouth twice dailyAPO-Varenicline 1 MG 1/2 tab once daily x 3 days, then 1/2 tab bid, x 4 days then 1 po bid Orally for 90 days August, Active warfarin sodium 4 mg oral tablet (20 sources)Vitamin K AntagonistStart: 21-47-6220Rkpsvhcb 4 mg tablet Active 0 .ROUTE .COMPLEX 90 March 21, 2024 8:49am TAKE 1 TABLET DAILY Complies with drug therapyStart: 99-10-6601Hbmpnhrp 4 mg tablet Active 0 .ROUTE .COMPLEX 90 March 21, 2024 8:49am TAKE 1 TABLET DAILYStart: 09-27-2023 End: 25-77-8919gjmn 1 tablet by mouth once dailyWarfarin 4 mg tablet Discontinued 4 MG PO Daily 90 0 January 09, 2024 1:39pm March 21, 2024 8:49amStart: 86-80-5259Efmpyjtp Sodium 5 MG Oral Tablet DIRECTED BY DR GUDINO Quantity: 0 Refills: 0 Ordered: 11-May-2021 DO Start : 08-Feb-2021 ActiveStart: 02-08-2021 End: 96-14-7163fwwi 1 tablet by mouth once dailyWarfarin 5 mg tablet Discontinued 5 MG PO Daily 90 0 July 27, 2023 10:48pm September 27, 2023 12:17pm Warfarin 5mg 5 mg 1 tab orally tu, th, sat, & sun ActiveWarfarin 5mg 5 mg 1 & 1/2 tab orally Mon, wed, & fri Active Completed/Discontinued Medications MedicationDrug Class(es)DatesSig (Normalized)Sig (Original)[id number] 200 actuat albuterol 0.09 mg/actuat metered dose inhaler (5 sources)beta2-Adrenergic AgonistStart: 06-17-2024 End: 47-51-3304jcsi 1 puff(s) by inhalation every four to six hours as needed for wheezingAlbuterol Sulfate 90 mcg/actuation HFA aerosol inhaler Discontinued 2 PUFF INHALATION EVERY 4-6 HOURS as needed for shortness of breath or wheezing 8.5 0 June 17, 2024 1:00am August 15, 2024 10:05am12 hr buPROPion hydrochloride 150 mg extended release oral tablet (19 sources)AminoketoneStart: 08-01-2023 End: 12-52-2355byal 1 tablet by mouth twice dailyBupropion Hcl 150 mg tablet sustained-release 12 hr Discontinued 150 MG PO Twice daily 180 90 0 August 01, 2023 8:55am August 14, 2023 3:05pmStart: 07-27-2023 End: 84-09-6784apmm 1 tablet by mouth once dailyBupropion Hcl 150 mg tablet sustained-release 12 hr Discontinued 150 MG PO Daily 90 0 July 27, 2023 10:47pm August 01, 2023 8:56amWellbutrin SR 150 MG 1 tablet in the morning Orally Once a day x 3 days, then bid for 30 days Activesugar-free cholestyramine resin 4000 mg powder for oral suspension (11 sources)Bile Acid SequestrantStart: 08-26-2024 End: 69-78-5427Wrektnykymnnrc 4 gram powder Discontinued 4 GM PO As Directed August 26, 2024 12:00am February 09, 2025 2:02pmStart: 56-41-8344Iijycqxy 4 g/9 g oral powder = 1 [...] suspension (13 sources)Bile Acid SequestrantStart: 08-07-2023 End: 85-10-9650Qvfkepqvcp 5 gram granules Discontinued GM PO As Directed August 07, 2023 12:00am August 26, 2024 8:47am FreeTextSig: as directed Orally; Note: Source Status: Taking; Provider: Salo Deluna EStart: 05-18-3536Ghwdspefdm Active GM PO As Directed August 07, 2023 12:00am FreeTextSig: as directed Orally; Note:Source Status: Taking; Provider: Salo Deluna EColestid 5 GM as directed Orally Activedocosahexaenoic acid 120 mg / eicosapentaenoic acid 180 mg oral capsule (3 sources)take 2 capsules by mouth twice dailyOmega 3 1000 MG Oral Capsule TAKE 2 CAPSULE Twice daily Quantity: 0 Refills: 0 Ordered: 75-Dsq-4370NV Active Magnesium (5 sources)take 1 tablet by mouth once dailyMagnesium 250 MG Oral Tablet TAKE 1 TABLET DAILY. Quantity: 0 Refills: 0 Ordered: 06-Dec-2021 DO Activepravastatin sodium 40 mg oral tablet (9 sources)HMG-CoA Reductase InhibitorStart: 08-14-2023 End: 62-54-9428jtxw 1 tablet by mouth once dailyPravastatin 40 mg tablet Discontinued 40 MG PO Daily August 14, 2023 12:00am February 09, 2025 1:59pm Start: 06-01-2023 End: 92-56-3529cxyp 1 tablet by mouth once dailyPravastatin 20 mg tablet Active 20 MG PO Daily February 09, 2025 12:00am Complies with drug therapyStart: 93-49-6053mgjb 1 mg by mouth once dailyPravastatin Sodium 20 MG Oral Tablet take one daily at night Quantity: 30 Refills: 5 Ordered: 05-Jan-2023 Ko Erickson MD Start : 05-Jan-2023 Active new replaces crestorRABEprazole sodium 20 mg delayed release oral tablet (20 sources)Proton Pump InhibitorStart: 09-03-2023 End: 39-91-6392Lakrboscvlm 20 mg tablet,delayed release (DR/EC) Discontinued 0 .ROUTE .COMPLEX 90 3 December 16, 2024 9:53am February 09, 2025 2:02pm TAKE 1 TABLET DAILYStart: 05-21-2021 End: 82-20-1586gvmc 1 tablet by mouth once dailyRabeprazole (Aciphex) 20 mg tablet,delayed release (DR/EC) Discontinued 20 MG PO Daily August 07, 2023 12:00am September 03, 2023 12:41pmAciphex Activerosuvastatin calcium 20 mg oral tablet (1 source)HMG-CoA Reductase InhibitorStart: 11-87-9139dxeb 1 tablet by mouth once dailyRosuvastatin Calcium 20 MG Oral Tablet TAKE 1 TABLET DAILY. Quantity: 90 Refills: 3 Ordered: 12-Dec-2022 Ko Erickson MD Start : 12-Dec-2022 Active Sod Picosulf-Mag Ox-Citric Ac (4 sources)Start: 08-15-2024 End: 03-65-7398shhe 1 dose by mouth once dailySod Picosulf-Mag Ox-Citric Ac (Clenpiq) 10 mg-3.5 gram- 12 gram/175 mL solution Discontinued 175 MLPO Daily 350 0 0 August 15, 2024 12:00am September 11, 2024 7:30am Take first dose at 3pm evening before colonoscopy; second dose at 9 pm night before colonoscopyStart: 08-15-2024 End: 58-97-4121mdfp 1 dose by mouth once dailySod Picosulf-Mag Ox-Citric Ac (Clenpiq) 10 mg-3.5 gram- 12 gram/175 mL solution Discontinued 175 MLPO Daily 350 0 August 15, 2024 12:00am September 11, 2024 7:30am Take first dose at 3pm evening beforecolonoscopy; second dose at 9 pm night before colonoscopy Problems Active Problems Problem ClassificationProblemDateDocumented DateEpisodic/ChronicBiliary tract disease (8 sources)Postcholecystectomy syndrome; 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]86-94-7396GjkkaeqvVssobpqca and vision defects (11 sources)Eye / vision finding; Translations: [Unspecified visual disturbance] Onset: 04-09-2023 Resolved: 099227-90-9639DidxkvbsYmyafni dysrhythmias (20 sources)Paroxysmal atrial fibrillation; Translations: [Atrial fibrillation] Onset: 96-45-8255EjxqomgGiuuvxs dysrhythmias (11 sources)Palpitations; Translations: [Palpitations]Onset: 04-09-2023 68-50-2648UbobnyuhZcuynwb dysrhythmias (1 source)Cardiac dysrhythmiasOnset: 86-91-7781Ohcnzhc kidney disease (8 sources)Chronic kidney disease stage 3A ; Translations: [Chronic kidney disease, Stage III (moderate)]Onset: 04-09-2023 Resolved: 156922-63-4358ZbhwjodSdthvll kidney disease (2 sources)Chronic kidney disease; Translations: [Chronic kidney disease, stage 3a (Multi)]Onset: 74-72-6833Tpowucwgmm associated with dizziness or vertigo (9 sources)Dizziness and giddiness; Translations: [Dizziness and giddiness] Onset: 57-90-6530CftyopubSeyqmldsw of lipid metabolism (20 sources)Hypertriglyceridemia; Translations: [Pure hyperglyceridemia]Onset: 04-09-2023 Resolved: 96-17-0887XqtyylnKcheinsurj disorders (16 sources)Gastroesophageal reflux disease; Translations: [GERD [Gastroesophageal reflux disease]]ChronicHeadache; including migraine (2 sources)Headache; Translations: [Headache]32-55-4097OarchgcaZfan disorders (3 sources)Seasonal affective disorder; Translations: [Major depressive disorder, recurrent, in remission, unspecified]10-41-0105WoxjssrCnzxh aftercare (6 sources)Drug therapy finding; Translations: [Long-term (current) use of other medications]EpisodicOther aftercare (4 sources)Encounter for therapeutic drug level monitoring; Translations: [ENC THERAPEUTC DRUG LEVL MONITORING]Onset: 74-44-7859ArcpuahvLcyyh aftercare (5 sources)Taking high risk medication; Translations: [Other usp (current) drug therapy]Onset: 889904-35-5713IeazftsrDhoyk ear and sense organ disorders (1 source)Hearing loss; Translations: [Unspecified hearing loss, right ear] Onset: 68-46-6146WnokcibMjqku ear and sense organ disorders (1 source)Hearing loss of right vdg53-34-9981WkwyaxjUppds gastrointestinal disorders (6 sources)Other intestinal malabsorption; 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]14-99-3069EyklurjAmwum lower respiratory disease (12 sources)Nodule of lung; Translations: [Solitary pulmonary nodule]08-11-2023 EpisodicOther lower respiratory disease (3 sources)Solitary pulmonary nodule; Translations: [Solitary pulmonary nodule] EpisodicOther lower respiratory disease (5 sources)Dyspnea; Translations: [Shortness of breath]90-42-5333ZvyqidyoWhdzr nervous system disorders (4 sources)Trigeminal neuralgia; Translations: [Trigeminal neuralgia]Onset: 56-03-9886JnxjqgtvGpiay non-traumatic joint disorders (5 sources)Hip pain; Translations: [Pain in right hip]85-70-8863KouikrlnImcjj nutritional; endocrine; and metabolic disorders (6 sources)Obesity; Translations: [Obesity, unspecified]ChronicOther nutritional; endocrine; and metabolic disorders (4 sources)Body mass index 30+ - obesity; Translations: [Body mass index (BMI) 30.0-30.9, adult]Onset: 766882-20-5699HztijtxFronu nutritional; endocrine; and metabolic disorders (1 source)Obese class I; Translations: [Obesity, Class I, BMI 30-34.9]08-01-2024 ChronicOther nutritional; endocrine; and metabolic disorders (2 sources)Body mass index (BMI) 30.0-30.9, adult; Translations: [Body mass index (BMI) 30.0-30.9, adult]Onset: 44-18-9871AwtlvuyJypjs nutritional; endocrine; and metabolic disorders (5 sources)Weight [...] for screening for malignant neoplasm of colon]Onset: 58-63-5998UthglopaCzhrv upper respiratory infections (5 sources)Chronic maxillary sinusitis; Translations: [Chronic maxillary sinusitis]92-51-5963OcsygtyMutzh upper respiratory infections (6 sources)Viral upper respiratory tract infection; Translations: [Acute upper respiratory infection, unspecified]25-75-6246DjxbtoxnYcxftjrw codes; unclassified (2 sources)Hypersomnia; Translations: [Hypersomnia, unspecified]02-09-2025 ChronicSubstance-related disorders (20 sources)Smokes tobacco daily; Translations: [Tobacco use disorder]Onset: 46-40-0160DghylfwHmzvavf on above:1 ppd;Syncope (1 source)Vasovagal gcvgza16-74-1448ZgikvhjyUbbxvekjs cerebral ischemia (11 sources)Transient cerebral ischemia; Translations: [Unspecified transient cerebral ischemia]Onset: 372703-32-5913ShiomcnKcnbmfsdeozt (2 sources)Other usp (current) drug therapy / Z79.899(ICD-9)Onset: 06-96-9127Ybprswqqmswq (3 sources)Patient encounter nuegvt51-15-3456 Past or Other Problems Problem ClassificationProblemDateDocumented DateEpisodic/ChronicOther aftercare (3 sources)Other supervisor intermediates (current) drug therapy; Translations: [OTH WOMENS [employer]LEY[employer] CO[employer] CURRENT DRUG THERAPY]Onset: 87-73-9242BybwjswlHvccf lower respiratory disease (3 sources)Shortness of breath; Translations: [Shortness of breath]Onset: 014197-41-3830ZzwekwugTaltt nervous system disorders (8 sources)Vela's palsy; 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]Onset: EpisodicUnclassified (1 source)Other usp (current) drug therapy; Translations: [Other supervisor intermediates (current) drug therapy]Onset: 22-75-4470Ptgljomwbhxs (2 sources)Onset: 450917-87-4922 Results Test NameValueInterpretationReference RangeFacilityINR in Platelet poor plasma by Coagulation assayOrdered By: Jared Leong on 88-76-6183DEC Coag (PPP) [Relative time]2.77 {INR}[facility] SystemComment on above: DESIRED INR:2.0-3.0 CONDITIONS NOT LISTED BELOW2.5-3.5 FOR PROSTHETIC HEART VALVE REPLACEMENT2.5-3.5 RECURRENT THROMBOSISProthrombin time (PT)Ordered By: Jared Leong on 32-44-2867IK Coag (PPP) [Time]26.5 sHigh9.0-11.6FWilson HealthBasophils Auto (Bld) [#/Vol]Ordered By: Shon Rosario on 58-05-4225Iwsillfmi (Bld) [#/Vol]0.1 10 3/uL0.0-0.1FWilson HealthBasophils/100 WBC Auto (Bld)Ordered By: Shon Rosario on 12-05-2024 Basophils/100 WBC (Bld)0.8 %0.2-2.0[facility] Eosinophils/100 WBC Auto (Bld)Ordered By: Shon Rosario on 12-05-2024 Eosinophils/100 WBC (Bld)2.5 %0.9-7.0[facility] Erythrocyte distribution width Auto (RBC) [Ratio]Ordered By: Shon Rosario on 06-17-8783Axyydhjkvje distribution width (RBC) [Ratio]12.6 %11.0-15.0[facility] Health SystemGlomerular filtration rate (GFR) estimation in non- AmericanOrdered By: Shon Rosario on 25-24-0303QUR/1.73 sq M.predicted among non-blacks MDRD (S/P/Bld) [Vol rate/Area]mL/min/{1.73_m2}>=60 mL/min/1.73m 2FWilson HealthHematocrit Auto (Bld) [Volume fraction]Ordered By: Shon Rosario on 03-89-4945Kvxglnnceq (Bld) [Volume fraction]48.2 %42.0-54.0 [facility] SystemHemoglobin [Mass/volume] in BloodOrdered By: Shon Rosario on 84-70-3838Chjcvkqouo (Bld) [Mass/Vol]16.7 g/dL14.0-18.0 [facility] SystemLaboratory - Chemistry and Chemistry - challengeOrdered By: Shon Rosario on 76-03-7722Fbgopgp [Mass/Vol]8.4 mg/dLLow 8.5-10.1FWilson HealthChloride [Moles/Vol]103 mmol/L98-107 [facility] SystemCO2 [Moles/Vol]26.9 mmol/L21.0-32.0[facility] SystemCreatinine [Mass/Vol]0.98 mg/dL0.70-1.30[facility] SystemGFR/1.73 sq M.predicted MDRD (S/P/Bld) [Vol rate/Area] mL/min/{1.73_m2}>=60 mL/min/1.73m 2FWilson HealthGlucose [Mass/Vol]151 mg/qFHtcf47-155NbywsupddBlanchard Valley Health SystemPotassium [Moles/Vol]4.1 mmol/L3.5-5.1FKnox Community Hospitalodium [Moles/Vol] 139 mmol/T476-957HalslhorgBlanchard Valley Health SystemUrea nitrogen [Mass/Vol]11.0 mg/dL7.0-18.0[facility] SystemUrea nitrogen/Creatinine [Mass ratio]11.2 mg/mgBlanchard Valley Health SystemLaboratory - Hematology and Cell countsOrdered By: Shon Rosario on 93-23-5772Uxooidmo granulocytes/100 WBC (Bld)0.4 %0.0-0.5FWilson HealthLeukocytes [#/volume] corrected for nucleated erythrocytes in Blood by Automated counOrdered By: Shon Rosario on 57-20-2282ZGS corrected for nucl RBC Auto (Bld) [#/Vol]7.6 10 3/uL4.0-11.0[facility] SystemLymphocytes Auto (Bld) [#/Vol] Ordered By: Shon Rosario on 00-22-0792Yyophrxukmv (Bld) [#/Vol]1.7 10 3/uL 1.2-3.8[facility] SystemLymphocytes/100 WBC Auto (Bld)Ordered By: Shon Rosario on 42-66-1396Usjrvamjyyn/100 WBC (Bld)22.4 %20.5-60.0[facility] Auto (RBC) [Entitic mass]Ordered By: Shon Rosario on 07-57-9352YPE (RBC) [Entitic mass]31.0 pg25.9-34.0[facility] SystemMCHC Auto (RBC) [Mass/Vol]Ordered By: Shon Rosario on 96-54-7726DRKM (RBC) [Mass/Vol]34.6 g/dL29.9-35.2FWilson HealthMCV Auto (RBC) [Entitic vol]Ordered By: Shon Rosario on 95-10-2891GWB (RBC) [Entitic vol]89.4 fL80.0-94.0[facility] SystemMonocytes Auto (Bld) [#/Vol]Ordered By: Shon Rosario on 88-25-7948Hhsiosjoi (Bld) [#/Vol]0.8 10 3/uL 0.3-0.8[facility] SystemMonocytes/100 WBC Auto (Bld)Ordered By: Shon Rosario on 07-47-6621Rtgsfsvch/100 WBC (Bld)10.3 %1.7-12.0[facility] SystemNeutrophils Auto (Bld) [#/Vol]Ordered By: Shon Rosario on 64-09-7560Bziddyoxsnh (Bld) [#/Vol]4.8 10 3/uL1.4-6.5FWilson HealthNeutrophils/100 WBC Auto (Bld)Ordered By: Shon Rosario on 34-62-8234Sgfjrovxxnx/100 WBC (Bld)63.6 %43.0-75.0[facility] SystemNo Panel InformationOrdered By: Shon Rosario on 95-77-4391Yyevyfywpbi # (Auto)0.2 10 3/uL0.0-0.7FWilson HealthImmature Granulocyte # (Auto)0.03 10 3/uL0.00-0.03[facility] SystemPlatelet mean volume Auto (Bld) [Entitic vol]Ordered By: Shon Rosario on 41-56-1978Vcywxeux mean volume (Bld) [Entitic vol]10.5 fL9.5-13.5FWilson Health Platelets Auto (Bld) [#/Vol]Ordered By: Shon Rosario on 48-60-4094Kaugzmpzy (Bld) [#/Vol]188 10 3/lB331-614HwmpilptyBlanchard Valley Health SystemRBC Auto (Bld) [#/Vol]Ordered By: Shon Rosario on 02-25-4520KDR (Bld) [#/Vol]5.39 10 6/uL 4.70-6.10[facility], Edwin Shawerum or plasma anion gap determinationOrdered By: Shonjay Rosario on 37-64-3133Vujzf gap [Moles/Vol]13.2 mmol/LFWilson HealthBasophils Auto (Bld) [#/Vol]Ordered By: Chas Dean on 60-56-8569Pcmcmgjmb (Bld) [#/Vol]Automated basophil count 0.0-0.2FWilson HealthBasophils/100 WBC Auto (Bld)Ordered By: Chas Dean on 18-48-0665Uaxsjsqao/100 WBC (Bld)Automated basophil %.[facility] SystemComplete Blood Count Auto DiffOrdered By: Chas Dean on 82-87-1070Csupmjaxl (Bld) [#/Vol]0.1 10*3/uL0.0-0.2FWilson HealthComment on above:Result Comment: PERFORMED BY: [place] [address] PATHOLOGIST PEDIATRIC NURSE MARK AVITIA M.D.Performed By: #### CBC, PTT, PT #### [facility] [address] [place] [address] USABasophils/100 WBC (Bld)1.2 %.[facility] SystemComment on above:Performed By: #### CBC, PTT, PT #### [facility] [address] [place] [address] USAEosinophils (Bld) [#/Vol]0.2 10*3/uL0.0-0.45[facility] SystemComment on above:Performed By: #### CBC, PTT, PT #### [facility] [address] [place] [address] USAEosinophils/100 WBC (Bld)2.0 %.[facility] SystemComment on above:Performed By: #### CBC, PTT, PT #### [facility] [address] [place] [address] USAErythrocyte distribution width (RBC) [Ratio]14.0 % 12.0-14.8[facility] SystemComment on above:Performed By: #### CBC, PTT, PT #### [facility] [address] [place] [address] USAHematocrit (Bld) [Volume fraction]47.8 %38.8-50.0[facility] SystemComment on above:Performed By: #### CBC, PTT, PT #### [facility] [address] [place] [address] USAHemoglobin (Bld) [Mass/Vol]16.8 g/dL13.0-17.0[facility] SystemComment on above:Performed By: #### CBC, PTT, PT #### [place] [address] USALymphocytes (Bld) [#/Vol]2.1 10*3/uL1.00-4.8[facility] SystemComment on above:Performed By: #### CBC, PTT, PT #### [facility] [address] [place] [address] USALymphocytes/100 WBC (Bld)20.5 %.[facility] SystemComment on above:Performed By: #### CBC, PTT, PT #### [facility] [facility] [address] [place] [address] USAMCH (RBC) [Entitic mass]31.5 pg27.5-35.2FWilson HealthComment on above:Performed By: #### CBC, PTT, PT #### [facility] [address] [place] [address] USAMCV (RBC) [Entitic vol]89.6 fL83.5-101[facility] SystemComment on above:Performed By: #### CBC, PTT, PT #### [facility] [address] [place] [address] USAMonocytes (Bld) [#/Vol]1.3 10*3/uLHigh0.0-0.8[facility] Health SystemComment on above:Performed By: #### CBC, PTT, PT #### [facility] [address] [place] [address] USAMonocytes/100 WBC (Bld)12.7 %.[facility] Health SystemComment on above:Performed By: #### CBC, PTT, PT #### [facility] [address] [place] [address] USANeutrophils (Bld) [#/Vol]6.5 10*3/uL1.8-7.7FWilson HealthComment on above:Performed By: #### CBC, PTT, PT #### [facility] [address] [place] [address] USANeutrophils/100 WBC (Bld)63.6 %.[facility] SystemComment on above:Performed By: #### CBC, PTT, PT #### [place] [address] USAPlatelet mean volume (Bld) [Entitic vol]8.8 fL6.6-10.1 [facility] SystemComment on above:Performed By: #### CBC, PTT, PT #### [facility] [address] [place] [address] USAPlatelets (Bld) [#/Vol]180 10*3/dN178-666VvayuwlmmBlanchard Valley Health SystemComment on above:Performed By: #### CBC, PTT, PT #### [facility] [address] [place] [address] USARBC (Bld) [#/Vol]5.33 10*6/uL3.90-5.60[facility] SystemCommunson healthcare [facility] on above:Performed By: #### CBC, PTT, PT #### [facility] [address] [place] [address] USAWBC (Bld) [#/Vol]10.2 10*3/uL4.1-10.5FWilson HealthComment on above:Performed By: #### CBC, PTT, PT #### [place] [address] USAComplete Blood Count Auto Diffon 70-86-6817Vnbi Corpuscular HGB Conc35.1 g/jYTjfvqg01.5-35.6The [facility]rium Health Physician GroupComment on above:Performed By: #### CBC, PTT, PT #### [facility] [address] [place] [address] USANRBC%0.1 /100{WBC}Normal0-0.5[facility] Comment on above:Performed By: #### CBC, PTT, PT #### [facility] [address] [place] [address] USAEosinophils Auto (Bld) [#/Vol]Ordered By: Chas Dean on 73-67-8662Jatwasegcsq (Bld) [#/Vol]Automated eosinophil count0.0-0.45[facility] SystemEosinophils/100 WBC Auto (Bld)Ordered By: Chas Dean on 83-09-2818Uclywtptjrx/100 WBC (Bld)Automated eosinophil %.[facility] SystemErythrocyte distribution width Auto (RBC) [Ratio]Ordered By: Chas Dean on 47-72-1969Ilymmigjilc distribution width (RBC) [Ratio] Erythrocyte distribution width [Ratio] by Automated count12.0-14.8[facility] Health SystemHematocrit Auto (Bld) [Volume fraction]Ordered By: Chas Dean on 13-02-5921Cmogngpene (Bld) [Volume fraction]Hematocrit [Volume Fraction] of Blood by Automated count38.8-50.0[facility] Hemoglobin [Mass/volume] in BloodOrdered By: Chas eDan on 09-11-2024 Hemoglobin (Bld) [Mass/Vol]Hemoglobin [Mass/volume] in Blood13.0-17.0[facility] SystemINR in Platelet poor plasma by Coagulation assayOrdered By: Chas Dean on 07-53-8525QUF Coag (PPP) [Relative time]INR in Platelet poor plasma by Coagulation assayBlanchard Valley Health SystemComment on above:INR Therapeutic Range A) Pre- and [...] by Automated counOrdered By: Chas Dean on 17-34-8614BGV corrected for nucl RBC Auto (Bld) [#/Vol]Leukocytes [#/volume] corrected for nucleated erythrocytes in Blood by Automated coun4.1-10.5FWilson Health WBC corrected for nucl RBC Auto (Bld) [#/Vol]10.2 10*3/uL4.1-10.5FWilson HealthLymphocytes Auto (Bld) [#/Vol]Ordered By: Chas Dean on 83-11-6712Xzidvlmcpew (Bld) [#/Vol]Lymphocytes [#/volume] in Blood by Automated count1.00-4.8[facility] SystemLymphocytes/100 WBC Auto (Bld)Ordered By: Chas Dean on 84-28-8958Lncmuoeknqs/100 WBC (Bld) Lymphocytes/100 leukocytes in Blood by Automated count.[facility] ColumbusH Auto (RBC) [Entitic mass]Ordered By: Chas Dean on 62-14-7398GFW (RBC) [Entitic mass]MCH [Entitic mass] by Automated count27.5-35.2 [facility] ColumbusHC Auto (RBC) [Mass/Vol]Ordered By: Chas Dean on 32-18-3548DGOS (RBC) [Mass/Vol]MCHC [Mass/volume] by Automated count 32.5-35.6FZanesville City HospitalHC (RBC) [Mass/Vol]35.1 g/dL 32.5-35.6FWilson HealthMCV Auto (RBC) [Entitic vol]Ordered By: Chas Dean on 11-84-8178YIG (RBC) [Entitic vol]MCV [Entitic volume] by Automated count83.5-101[facility] SystemMonocytes Auto (Bld) [#/Vol]Ordered By: Chas Dean on 38-21-6404Ofctkxnzj (Bld) [#/Vol]Automated blood monocyte countHigh0.0-0.8[facility] SystemMonocytes/100 WBC Auto (Bld)Ordered By: Chas Dean on 76-03-4812Iacgpopyr/100 WBC (Bld) Automated monocyte %.[facility] Health SystemNeutrophils Auto (Bld) [#/Vol]Ordered By: Chas Dean on 55-70-2935Krbiajvofzm (Bld) [#/Vol] Neutrophils [#/volume] in Blood by Automated count1.8-7.7FWilson HealthNeutrophils/100 WBC Auto (Bld)Ordered By: Chas Dean on 06-13-6771Osdsiorticq/100 WBC (Bld)Automated neutrophil %.[facility] SystemNo Panel InformationOrdered By: Chas Dean on 09-11-2024 Miscellaneous Pathology TestSee commentBlanchard Valley Health SystemComment on above:See report. Scanned copy available in EMR.Nucleated erythrocytes [Presence] in Blood by Automated countOrdered By: Chas Dean on 09-11-2024 Nucleated RBC Auto Ql (Bld)Nucleated erythrocytes [Presence] in Blood by Automated count0-0.5FWilson HealthNucleated RBC Auto Ql (Bld) 0.1 /100{WBC}0-0.5FWilson HealthPartial Thromboplastin Timeon 18-99-3525oNUL Coag (Bld) [Time]34.6 bKrmlte16.1-36.5The Atrium Health Physician GroupComment on above:Result Comment: A hematocrit value greater than 55% may lead to inaccurate results in coagulation testing. Patients having hematocrit values >55% require a special collection tube for coagulation studies. Please contact the laboratory at [phone] for redraw instructions. PERFORMED BY: [address] [address] PATHOLOGIST PEDIATRIC NURSE MARK AVITIA M.D.Performed By: #### CBC, PTT, PT #### [address] [address] USAPathology Request for Lab Corpon 77-39-0864Rnhdxvxwl Request for Lab CorpNormBroward Health North Physician GroupComment on above:Order Comment: GI SPECIMENResult Comment: See report. Scanned copy available in EMR. PERFORMED BY: [place] [address] PATHOLOGIST PEDIATRIC NURSE CAT ARAGON M.D.Performed By: #### PATH TO [facility] #### [facility] [address] [place] [address] USAPlatelet mean volume Auto (Bld) [Entitic vol]Ordered By: Chas Dean on 61-85-0257Rsrvniem mean volume (Bld) [Entitic vol]Platelet mean volume [Entitic volume] in Blood by Automated count6.6-10.1FWilson HealthPlatelets Auto (Bld) [#/Vol]Ordered By: Chas Dean on 84-98-6613Bvwwhrzmz (Bld) [#/Vol]Platelets [#/volume] in Blood by Automated -203NlsqxgrhqBlanchard Valley Health SystemProthrombin Time INROrdered By: Chas Dean on 02-02-2410AJH Coag (PPP) [Relative time]1.1 {INR}[facility] Health SystemComment on above:Result Comment: INR Therapeutic Range A) [...] 4.5Performed By: #### CBC, PTT, PT #### [facility] [address] [place] [address] USAINR Therapeutic Range A) Pre- and Peroperative OAT started two weeks before surgery. NOT HIP SURGERY: 1.5 - 2.5 HIP SURGERY: 2 - 3B) Primary and secondary prevention of venous THROMBOSIS: 2 - 3C) Active venous thrombosis, pulmonary embolismand prevention of recurrent venous thrombosis: 2 - 3D) Prevention of arterial thromboembolismincluding patients with mechanical heart valves: 3 - 4.5PT Coag (PPP) [Time]13.0 sHigh9.0-12.9[facility] Health SystemComment on above:Result Comment: A hematocrit value greater than 55% may lead to inaccurate results in coagulation testing. Patients having hematocrit values >55% require a special collection tube for coagulation studies. Please contact the laboratory at [phone] for redraw instructions.Performed By: #### CBC, PTT, PT #### [facility] [address] [id number] hematocrit value greater than 55% may lead to inaccurate results in coagulation testing. Patientshaving hematocrit values >55% require a special collection tube for coagulation studies. Please contact the laboratory at [phone] for redraw instructions.Prothrombin time (PT)Ordered By: Chas Dean on 08-79-6314HY Coag (PPP) [Time]Prothrombin time (PT)High9.0-12.9 [facility] SystemComment on above:A hematocrit value greater than 55% may lead to inaccurate results in coagulation testing. Patientshaving hematocrit values >55% require a special collection tube for coagulation studies. Please contact the laboratory at [phone] for redraw instructions. RBC Auto (Bld) [#/Vol]Ordered By: Chas Dean on 15-09-3566TPP (Bld) [#/Vol] Erythrocytes [#/volume] in Blood by Automated count3.90-5.60[facility] SystemWBC Auto (Bld) [#/Vol]Ordered By: Chas Dean on 27-04-9689LDX (Bld) [#/Vol]Leukocytes [#/volume] in Blood by Automated count4.1-10.5FWilson HealthaPTT in Platelet poor plasma by Coagulation assayOrdered By: Chas Dean on 52-07-6205mRUR Coag (PPP) [Time]Activated partial thromboplastin time (aPTT) in platelet poor plasma by coagulation a25.1-36.5 [facility] SystemComment on above:A hematocrit value greater than 55% may lead to inaccurate results in coagulation testing. Patientshaving hematocrit values >55% require a special collection tube for coagulation studies. Please contact the laboratory at [phone] for redraw instructions. aPTT Coag (PPP) [Time]34.6 s25.1-36.5FWilson HealthComment on above:A hematocrit value greater than 55% may lead to inaccurate results in coagulation testing. Patientshaving hematocrit values >55% require a special collection tube for coagulation studies. Please contact the laboratory at [phone] for redraw instructions.CT lung screeningon 19-64-2668CB lung screeningCLEVEL[facility] [place] [address] [place] [address] CT Scan Report Signed Patient: Abhinav Lezama MR#: [id number] : 1960 Acct:[id number] Age/Sex: 64 / M ADM Date: 08/06/24 Loc: [facility] Room: Type: [facility] Attending Dr: Kelechi Martin MD Copies to: [...] Lockwood Jr., Mackenzie08/06/2024 12:58 PM Dictation Location: [place] [address] Transcribed By: [facility] 08/06/24 1258 Dictated By: Yannick Lockwood Jr, DO 08/06/24 1255 Signed By: 08/06/24 1258Advent[facility] Celebration Physician GroupECG [address] 91-01-9973YNZ revealed normal sinus rhythm with sinus bradycardia, left axis deviation, voltage criteria for LVH, diffuse nonspecific ST and T changes, abnormal ECGCPACSBarnesville Hospital Work Phone: basophils Auto (Bld) [#/Vol]on 53-79-9537Rvwblxsgs (Bld) [#/Vol]Automated basophil count0.0-0.1FWilson Health Basophils/100 WBC Auto (Bld)on 07-12-5287Hjwgjijzr/100 WBC (Bld)Automated basophil %0.2-2.0[facility] SystemEosinophils/100 WBC Auto (Bld) on 82-23-0691Tmvxqtwyhxu/100 WBC (Bld)Automated eosinophil %0.9-7.0[facility] SystemErythrocyte distribution width Auto (RBC) [Ratio]on 23-42-1854Afjdhyfifho distribution width (RBC) [Ratio]Erythrocyte distribution width [Ratio] by Automated count11.0-15.0[facility] Estimated glomerular filtration rate (GFR) non- Americanon 07-25-2024 GFR/1.73 sq M.predicted among non-blacks MDRD (S/P/Bld) [Vol rate/Area]Estimated glomerular filtration rate (GFR) non->=60 mL/min/1.73m 2 [facility] SystemHematocrit Auto (Bld) [Volume fraction]on 47-17-3389Agzytjepjn (Bld) [Volume fraction]Hematocrit [Volume Fraction] of Blood by Automated count42.0-54.0[facility] SystemHemoglobin [Mass/volume] in Bloodon 98-85-6544Zrzhevjeqq (Bld) [Mass/Vol]Hemoglobin [Mass/volume] in Blood14.0-18.0[facility] SystemINR in Platelet poor plasma by Coagulation assayon 09-80-1556MZV Coag (PPP) [Relative time]INR in Platelet poor plasma by Coagulation assayBlanchard Valley Health System Comment on above:DESIRED INR:2.0-3.0 CONDITIONS NOT LISTED BELOW2.5-3.5 FOR PROSTHETIC HEART VALVE REPLACEMENT2.5-3.5 RECURRENT THROMBOSISLaboratory - Chemistry and Chemistry - challengeon 81-21-5674Phenetx [Mass/Vol]8.9 mg/dL 8.5-10.1FWilson HealthChloride [Moles/Vol]105 mmol/L98-107 [facility] SystemCO2 [Moles/Vol]29.2 mmol/L21.0-32.0[facility] SystemCreatinine [Mass/Vol]1.05 mg/dL0.70-1.30[facility] SystemGFR/1.73 sq M.predicted MDRD (S/P/Bld) [Vol rate/Area] mL/min/{1.73_m2}>=60 mL/min/1.73m 2FWilson HealthGlucose [Mass/Vol]97 mg/hB30-443UusgqwnmqBlanchard Valley Health SystemPotassium [Moles/Vol] 4.8 mmol/L3.5-5.1FKnox Community Hospitalodium [Moles/Vol]137 mmol/L 136-145[facility] SystemUrea nitrogen [Mass/Vol]11.0 mg/dL 7.0-18.0[facility] SystemUrea nitrogen/Creatinine [Mass ratio] 10.5 mg/mgBlanchard Valley Health SystemLaboratory - Hematology and Cell countson 36-34-3903Sjfdbnyx granulocytes/100 WBC (Bld)0.4 %0.0-0.5FWilson HealthLeukocytes [#/volume] corrected for nucleated erythrocytes in Blood by Automated counon 81-52-7728ZWO corrected for nucl RBC Auto (Bld) [#/Vol]Leukocytes [#/volume] corrected for nucleated erythrocytes in Blood by Automated coun4.0-11.0[facility] SystemLymphocytes Auto (Bld) [#/Vol]on 06-05-5022Puaxredsztm (Bld) [#/Vol]Lymphocytes [#/volume] in Blood by Automated count1.2-3.8[facility] SystemLymphocytes/100 WBC Auto (Bld)on 94-47-5351Utkgfsdbkky/100 WBC (Bld)Lymphocytes/100 leukocytes in Blood by Automated count20.5-60.0[facility] ColumbusH Auto (RBC) [Entitic mass]on 99-59-0367KSU (RBC) [Entitic mass]MCH [Entitic mass] by Automated count25.9-34.0[facility] ColumbusHC Auto (RBC) [Mass/Vol]on 00-27-0882KIMW (RBC) [Mass/Vol]MCHC [Mass/volume] by Automated count29.9-35.2FZanesville City HospitalV Auto (RBC) [Entitic vol]on 71-59-9114NVW (RBC) [Entitic vol]MCV [Entitic volume] by Automated count 80.0-94.0[facility] SystemMonocytes Auto (Bld) [#/Vol]on 24-43-5616Woifggqpr (Bld) [#/Vol]Automated blood monocyte countHigh0.3-0.8 [facility] SystemMonocytes/100 WBC Auto (Bld)on 07-25-2024 Monocytes/100 WBC (Bld)Automated monocyte %High1.7-12.0[facility] SystemNeutrophils Auto (Bld) [#/Vol]on 09-89-7400Xkiptmanuau (Bld) [#/Vol]Neutrophils [#/volume] in Blood by Automated count1.4-6.5FWilson HealthNeutrophils/100 WBC Auto (Bld)on 07-25-2024 Neutrophils/100 WBC (Bld)Automated neutrophil %43.0-75.0[facility] SystemNo Panel Informationon 07-66-7929Adjdjmafdum # (Auto)0.2 10 3/uL 0.0-0.7FWilson HealthImmature Granulocyte # (Auto)0.03 10 3/uL0.00-0.03[facility] Health SystemPlatelet mean volume Auto (Bld) [Entitic vol]on 43-36-0715Xlafyjhw mean volume (Bld) [Entitic vol]Platelet mean volume [Entitic volume] in Blood by Automated count9.5-13.5FWilson HealthPlatelets Auto (Bld) [#/Vol]on 79-55-4262Llauwjgsq (Bld) [#/Vol] Platelets [#/volume] in Blood by Automated -470KzdzmafhsBlanchard Valley Health SystemProthrombin time (PT)on 72-22-0380QW Coag (PPP) [Time]Prothrombin time (PT)High9.0-11.6FWilson HealthRBC Auto (Bld) [#/Vol]on 07-19-8787HTR (Bld) [#/Vol]Erythrocytes [#/volume] in Blood by Automated count 4.70-6.10[facility] Edwin Shawerum or plasma anion gap determinationon 33-34-5483Bvqoz gap [Moles/Vol]Serum or plasma anion gap determinationBlanchard Valley Health SystemXR chest 2V*on 87-34-3026EX chest 2V*[facility] [place] [address] XRay Report Signed Patient: Abhinav Lezama MR#: [id number] : 1960 Acct:[id number] Age/Sex: 63 / M ADM Date: 06/14/24 Loc: XDUCLY Room: Type: [facility] Attending Dr: Sandi Collazo APRN Copies to: [...] By: Jaden Castro MD 06/14/2446 Signed By: 06/14/2447Ad[facility] Celebr[facility] Physician GroupECG [address] 51-72-9487QLC revealed sinus rhythm with PACs and left axis deviation consistent with left anterior fascicular blockCPLima City Hospital Work Phone: Cholesterol in LDL Calc [Mass/Vol]on 06-12-2023 Cholesterol in LDL [Mass/Vol]54.0 mg/dLBlanchard Valley Health SystemComment on above:<100 mg/dl VVHWXWG017-603 mg/dl NEAR OR ABOVE LWLELNP964-537 mg/dl BORDERLINE VACB627-212 mg/dl HIGH>190 mg/dl VERY HIGHCholesterol in VLDL Calc [Mass/Vol]on 01-87-4751Dwfowxmzsij in VLDL [Mass/Vol]48.0 mg/dLBlanchard Valley Health SystemEstimated glomerular filtration rate (GFR) non- Americanon 42-13-9941SDN/1.73 sq M.predicted among non-blacks MDRD (S/P/Bld) [Vol rate/Area]mL/min/{1.73_m2}>=60[facility] SystemGlobulin Calc (S) [Mass/Vol]on 43-50-1797Pccxaurp (S) [Mass/Vol]4.4 g/dLBlanchard Valley Health SystemLaboratory - Chemistry and Chemistry - challengeon 99-48-2876Kutrzkv [Mass/Vol]3.3 g/dL3.4-5.0[facility] SystemALP [Catalytic activity/Vol]93 U/I61-840ByvmjlrnwBlanchard Valley Health SystemALT [Catalytic activity/Vol]28 U/G85-88CkywijqevBlanchard Valley Health SystemAST [Catalytic activity/Vol]18 U/Q83-91CstxorgstBlanchard Valley Health SystemBilirubin [Mass/Vol]0.6 mg/dL0.2-1.0[facility] SystemCalcium [Mass/Vol]8.6 mg/dL8.5-10.1FWilson HealthChloride [Moles/Vol]103 mmol/L 98-107[facility] SystemCholesterol [Mass/Vol]135 mg/dL<=200 [facility] SystemCholesterol in HDL [Mass/Vol]33 mg/dL40-60 [facility] SystemComment on above:> or =60 mg/dl - LOW CARDIOVASCULAR RISK<40 mg/dl - HIGH CARDIOVASCULAR RISKCO2 [Moles/Vol]28.4 mmol/L21.0-32.0[facility] SystemCreatinine [Mass/Vol]0.93 mg/dL 0.70-1.30[facility] SystemGFR/1.73 sq M.predicted MDRD (S/P/Bld) [Vol rate/Area]mL/min/{1.73_m2}>=60[facility] SystemGlucose [Mass/Vol]85 mg/cJ67-086ZuuuaedteBlanchard Valley Health SystemPotassium [Moles/Vol] 4.3 mmol/L3.5-5.1FWilson HealthProtein [Mass/Vol]7.7 g/dL 6.4-8.2FKnox Community Hospitalodium [Moles/Vol]140 mmol/Y434-350 [facility] SystemTriglyceride [Mass/Vol]240 mg/dL<=150[facility] SystemUrea nitrogen [Mass/Vol]11.0 mg/dL7.0-18.0[facility] SystemUrea nitrogen/Creatinine [Mass ratio]11.8 mg/mgSelect Medical [facility] Clinic Rehabilitation Hospital, Edwin Shawerum or plasma albumin/globulin mass ratioon 06-12-2023 Albumin/Globulin [Mass ratio]0.8 {ratio}[facility], Edwin Shawerum or plasma anion gap determinationon 37-95-0920Znraq gap [Moles/Vol]12.9 mmol/L [facility], Edwin Shawerum or plasma total cholesterol/high density lipoprotein (HDL) cholesterol mass juan miguel 05-87-4964Oaamchvbmok.total/Cholesterol in HDL [Mass ratio]4.1 {ratio}[facility] SystemComment on above:3.3 - 4.4 LOW RISK4.4 - 7.1 AVERAGE RISK7.1 - 11.0 MODERATE RISK>11.0 HIGH RISKOffice Visit (Cardiology)on 32-39-6006Kyhjty-up visitDiagnoses/Problems Assessed Paroxysmal atrial fibrillation (427.31) (I48.0) [...] Weight Tips; Status:Complete - Retrospective Authorization; Done: [id number] Some eating tips that can help you lose weight.; Status:Complete - Retrospective Authorization; Done: [id number] Paroxysmal atrial fibrillation Renew: Multaq 400 MG Oral Tablet; TAKE 1 TABLET TWICE DAILY, WITH MORNING AND EVENING MEAL IO EKG Electrocardiogram- 12 Lead; Status:Complete; Done: [id number] Renew: Nebivolol HCl - 10 MG Oral [...] we can help. You may also call [phone]-NOW for free resources and assistance.; Status:Complete - Retrospective Authorization; Done: [id number] Tobacco Use Screening; Status:Complete; Done: [id number] Patient Instructions Please bring all medicines, vitamins, [...] One or more falls in the last yearProv[facility] [employer] 250 DO Work Phone: Tobacco use status CPHSa) YesProvidence Mount Carmel Hospital [employer] 250 DO Work Phone: Tobacco Screening.YesProvidence Mount Carmel Hospital [employer] 250 DO Work Phone: CBC AUTO DIFFon 06-02-0545RUAD #0.1 103/ulNormal 0.0-0.1[facility] Ahuja Medical CenterComment on above:Performed By: #### PSASC #### [facility] [address] [address] [address] Nabil CheBasophils/100 WBC (Bld)0.9 %Normal0.2-2.0[facility] Comment on above:Performed By: #### PSASC #### [facility] [address] [address] [address] Nabil Steven #0.3 103/ulNormal0.0-0.7The [facility] HospitalComment on above: Performed By: #### PSASC #### [facility] [address] [address] [address] Nabil Vitalosinophils/100 WBC (Bld)3.3 %Normal0.9-7.0[facility] Comment on above:Performed By: #### PSASC #### [facility] [address] [place] [address] Dr. Nabil Vitalrythrocyte distribution width (RBC) [Ratio]13.2 %Jbuydp53.0-15.0 The [facility] HospitalComment on above:Performed By: #### PSASC #### [facility] [address] [place] [address] Dr. Nabil CheHematocrit (Bld) [Volume fraction]51.1 %Bfjlsq82.0-54.0The Chesterhill HospitalComment on above:Performed By: #### PSASC #### [facility] [address] [place] [address] Dr. Nabil CheHemoglobin (Bld) [Mass/Vol]17.8 g/sAZgpdpd99.0-18.0The [facility] HospitalComment on above:Performed By: #### PSASC #### [facility] [address] [place] [address] Dr. Nabil Huang #0.07 10e3/ulCritically high0.00-0.03[facility] Comment on above:Performed By: #### PSASC #### [facility] [address] [place] [address] Dr. Nabil Huang %0.7 %Critically high0.0-0.5The [facility] HospitalComment on above:Performed By: #### PSASC #### [facility] [address] [place] [address] Dr. Nabil DonaldH #2.1 103/ulNormal1.2-3.8The [facility] HospitalComment on above:Performed By: #### PSASC #### [facility] [address] [place] [address] Dr. Nabil Donaldhocytes/100 WBC (Bld)21.2 %Grqwie67.5-60.0The [facility] HospitalComment on above:Performed By: #### PSASC #### [facility] [address] [place] [address] Dr. Nabil MenjivarUAL DIFF REQNONormalThe [facility] HospitalComment on above: Performed By: #### PSASC #### [facility] [address] [address] [address] Nabil Jalloh (RBC) [Entitic mass]31.5 naDjcimg89.9-34.0The Chesterhill HospitalComment on above:Performed By: #### PSASC #### [facility] [address] [place] [address] Dr. Nabil Jalloh (RBC) [Mass/Vol]34.8 g/zMPmqmjr99.9-35.2The [facility] HospitalComment on above:Performed By: #### PSASC #### [facility] [address] [place] [address] Dr. Nabil Jalloh (RBC) [Entitic vol]90.4 fBQcasyp70.0-94.0The [facility] HospitalComment on above:Performed By: #### PSASC #### [facility] [address] [place] [address] Dr. Nabil Agee #1.2 103/ulCritically high0.3-0.8[facility] Comment on above:Performed By: #### PSASC #### [facility] [address] [place] [address] Dr. Nabil Hardyocytes/100 WBC (Bld)12.1 %Critically high1.7-12.0The [facility] HospitalComment on above:Performed By: #### PSASC #### [facility] [address] [place] [address] Dr. Nabil Stout #6.0 103/ulNormal1.4-6.5The [facility] HospitalComment on above:Performed By: #### PSASC #### [facility] [address] [place] [address] Dr. Nabil Lopezophils/100 WBC (Bld)61.8 %Wgmqdp99.0-75.0The [facility] HospitalComment on above:Performed By: #### PSASC #### [facility] [address] [address] [address] Nabil Salvador mean volume (Bld) [Entitic vol]10.3 fLNormal9.5-13.5The [facility] on above:Performed By: #### PSASC #### [facility] [address] [place] [address] Dr. Nabil ChePLT203 103/jeExwtfb611-344Nnb [facility] on above: Performed By: #### PSASC #### [facility] [address] [place] [address] Dr. Nabil CheRBC5.65 106/ulNormal4.70-6.10The [facility] HospitalCommunson [facility] on above:Performed By: #### PSASC #### [facility] [address] [place] [address] Dr. Nabil CheWBC9.8 103/ulNormal4.0-11.0The [facility] on above: Performed By: #### PSASC #### [facility] [address] [place] [address] Dr. Nabil BajwaID PROFILEon 08-05-7928YQJP-HDL RATIO NORMSAshtabula County Medical CenterCommunson healthcare [facility] on above:Result Comment: 3.3 - 4.4 LOW RISK 4.4 - 7.1 AVERAGE RISK 7.1 - 11.0 MODERATE RISK >11.0 HIGH RISKPerformed By: #### LIPID, CMP #### [facility] [address] [place] [address] Dr. Nabil Kilgoreesterol [Mass/Vol]231 mg/dLCritically high<=200The [facility] on above:Performed By: #### LIPID, CMP #### [facility] [address] [place] [address] Dr. Nabil Kilgoreesterol in HDL [Mass/Vol]37 mg/dLCritically tab44-96Lxp [facility] on above:Performed By: #### LIPID, CMP #### [facility] [address] [place] [address] Dr. Nabil Kilgoreesterol in LDL [Mass/Vol]137.0 mg/dLProMedica Flower HospitalComment on above:Performed By: #### LIPID, CMP #### [facility] [address] [place] [address] Dr. Nabil CheCholesterol.total/Cholesterol in HDL [Mass ratio]6.2 {ratio} NormalThe [facility] HospitalComment on above:Performed By: #### LIPID, CMP #### [facility] [address] [place] [address] Dr. Nabil Jay NORMAL> or = 60 mg/dl - LOW CARDIOVASCULAR RISK <40 mg/dl - HIGH CARDIOVASCULAR RISKProMedica Flower HospitalComment on above:Performed By: #### LIPID, CMP #### [facility] [address] [place] [address] Dr. Nabil Valle CALC NORMALSEE BELOWProMedica Flower HospitalCommunson healthcare [facility] on above:Result Comment: <100 mg/dl OPTIMAL 100 - 129 mg/dl NEAR OR ABOVE OPTIMAL 130 - 159 mg/dl BORDERLINE HIGH 160 - 189 mg/dl HIGH >190 mg/dl VERY HIGH Performed By: #### LIPID, CMP #### [facility] [address] [place] [address] Dr. Nabil CheTriglyceride [Mass/Vol]285 mg/dLCritically high<=150The [facility] on above:Performed By: #### LIPID, CMP #### [facility] [address] [place] [address] Dr. Nabil CheVLDL CALC57.0 mg/dLNoSCCI Hospital LimaCommunson healthcare [facility] on above: Performed By: #### LIPID, CMP #### [facility] [address] [place] [address] Dr. Nabil ChePROF 14(COMP METB)on 26-52-3614Dimtrhi [Mass/Vol]3.7 g/dLNormal 3.4-5.0[facility] on above:Performed By: #### LIPID, CMP #### [facility] [address] [place] [address] Dr. Nabil CheAlbumin/Globulin [Mass ratio]0.8 {ratio}NormalThe Chesterhill HospitalComment on above:Performed By: #### LIPID, CMP #### [facility] [address] [address] [address] Nabil Gonzales [Catalytic activity/Vol]96 U/OAeqrrh26-781Eig Genesis Hospitalment on above:Performed By: #### LIPID, CMP #### [facility] [address] [address] [address] Nabil Ac [Catalytic activity/Vol]42 U/MJhwppr18-80Pyu [facility] HospitalComment on above:Performed By: #### LIPID, CMP #### [facility] [address] [address] [address] Nabil Currie gap [Moles/Vol]11.9 mmol/LNormalUniversity Hospitals [facility] Comment on above:Performed By: #### LIPID, CMP #### [facility] [address] [address] [address] Nabil Richard [Catalytic activity/Vol]23 U/DNtllop90-62Crb Genesis Hospitalment on above:Performed By: #### LIPID, CMP #### [facility] [address] [address] [address] Nabil CheBilirubin [Mass/Vol]0.5 mg/dLNormal0.2-1.0[facility] Comment on above:Performed By: #### LIPID, CMP #### [facility] [address] [address] [address] Nabil CheCalcium [Mass/Vol]9.1 mg/dLNormal8.5-10.1[facility] Comment on above:Performed By: #### LIPID, CMP #### [facility] [address] [address] [address] Nabil CheChloride [Moles/Vol]104 mmol/ZUllrss26-683Vur [facility] Comment on above:Performed By: #### LIPID, CMP #### [facility] [address] [address] [address] Nabil CheCO2 [Moles/Vol]29.7 mmol/ZCnbpvc60.0-32.0[facility] Comment on above:Performed By: #### LIPID, CMP #### [facility] [address] [address] [address] Nabil CheCreatinine [Mass/Vol]1.07 mg/dLNormal0.70-1.30The [facility] HospitalComment on above:Performed By: #### LIPID, CMP #### [facility] [address] [address] [address] Nabil Roberts-AF MOLDOVAN>60Normal>=60The [facility] HospitalComment on above:Performed By: #### LIPID, CMP #### [facility] [address] [address] [address] Nabil Roberts-NON AF MOLDOVAN>60Normal>=60The [facility] HospitalComment on above:Performed By: #### LIPID, CMP #### [facility] [address] [address] [address] Nabil CheGlobulin (S) [Mass/Vol]4.8 g/dLNormalThe [facility] HospitalComment on above:Performed By: #### LIPID, CMP #### [facility] [address] [address] [address] Nabil CheGlucose [Mass/Vol]106 mg/gXRuobnu80-371EtuUniversity Hospitals Ahuja Medical Center Comment on above:Performed By: #### LIPID, CMP #### [facility] [address] [address] [address] Nabil ChePotassium [Moles/Vol]4.6 mmol/LNormal3.5-5.1The [facility] Comment on above:Performed By: #### LIPID, CMP #### [facility] [address] [address] [address] Nabil CheProtein [Mass/Vol]8.5 g/dLCritically high6.4-8.2[facility] Hospitalment on above:Performed By: #### LIPID, CMP #### [facility] [address] [address] [address] Nabil CheSodium [Moles/Vol]141 mmol/VSdqlms317-678WiyUniversity Hospitals Ahuja Medical Center Comment on above:Performed By: #### LIPID, CMP #### [facility] [address] [place] [address] Dr. Nabil Granado nitrogen [Mass/Vol]13.0 mg/dLNormal7.0-18.0[facility]huja Medical CenterComment on above:Performed By: #### LIPID, CMP #### [facility] [address] [place] [address] Dr. Nabil Granado nitrogen/Creatinine [Mass ratio]12.1 mg/mgNoSelect Medical Specialty Hospital - Southeast [place]e [facility] HospitalComment on above:Performed By: #### LIPID, CMP #### [facility] [address] [place] [address] Dr. Nabil ChePROTIMEon 63-59-4477TCE Coag (PPP) [Relative time]3.32 {INR} NormalThe [facility] HospitalComment on above:Performed By: #### PT #### [facility] [address] [place] [address] Dr. Nabil Farah GUIDELINESSEE BELOWProMedica Flower HospitalComment on above:Result Comment: DESIRED INR: 2.0 - 3.0 CONDITIONS NOT LISTED BELOW 2.5 - 3.5 FOR PROSTHETIC HEART VALVE REPLACEMENT 2.5 - 3.5 RECURRENT THROMBOSIS Performed By: #### PT #### [facility] [address] [place] [address] Dr. Nabil ChePT Coag (PPP) [Time]32.9 sCritically high9.0-11.6The [facility] HospitalComment on above:Performed By: #### PT #### [facility] [address] [place] [address] Dr. Nabil CheLab Reportson 32-31-2516Ghn Reports [id number]#1.00CD:127[facility] Medical CenterPROTIMEon 83-97-7489YDC Coag (PPP) [Relative time]2.82 {INR}NormalUniversity Hospitals Ahuja Medical CenterComment on above:Performed By: #### PT #### [facility] [address] [place] [address] Dr. Nabil Farah GUIDELINESE BELOWProMedica Flower HospitalComment on above:Result Comment: DESIRED INR: 2.0 - 3.0 CONDITIONS NOT LISTED BELOW 2.5 - 3.5 FOR PROSTHETIC HEART VALVE REPLACEMENT 2.5 - 3.5 RECURRENT THROMBOSIS Performed By: #### PT #### [facility] [address] [place] [address] Dr. Nabil ChePT Coag (PPP) [Time]28.2 sCritically high9.0-11.6The [facility] HospitalComment on above:Performed By: #### PT #### [facility] [address] [place] [address] Dr. Nabil Pedro AUTO DIFFon 74-07-6044KRFN #0.1 103/ulNormal0.0-0.1The [facility] HospitalComment on above:Performed By: #### PSASC #### [facility] [address] [place] [address] Dr. Nabil Tamayosophils/100 WBC (Bld)1.1 %Normal0.2-2.0The [facility] Comment on above:Performed By: #### PSASC #### [facility] [address] [place] [address] Dr. Nabil Steven #0.4 103/ulNormal0.0-0.7The [facility] HospitalComment on above: Performed By: #### PSASC #### [facility] [address] [place] [address] Dr. Nabil Vitalosinophils/100 WBC (Bld)3.7 %Normal0.9-7.0The [facility] Comment on above:Performed By: #### PSASC #### [facility] [address] [place] [address] Dr. Nabil Vitalrythrocyte distribution width (RBC) [Ratio]13.2 %Fzbafw84.0-15.0 The [facility] HospitalComment on above:Performed By: #### PSASC #### [facility] [address] [place] [address] Dr. Nabil CheHematocrit (Bld) [Volume fraction]49.2 %Ydnifn26.0-54.0The [facility] HospitalComment on above:Performed By: #### PSASC #### [facility] [address] [place] [address] Dr. Nabil CheHemoglobin (Bld) [Mass/Vol]17.3 g/bQHlylqj15.0-18.0The [facility] HospitalComment on above:Performed By: #### PSASC #### [facility] [address] [place] [address] Dr. Nabil Huang #0.04 10e3/ulCritically high0.00-0.03The [facility] Comment on above:Performed By: #### PSASC #### [facility] [address] [place] [address] Dr. Nabil Huang %0.4 %Normal0.0-0.5The [facility] HospitalComment on above: Performed By: #### PSASC #### [facility] [address] [place] [address] Dr. Nabil Briseno #2.5 103/ulNormal1.2-3.8The [facility] HospitalComment on above:Performed By: #### PSASC #### [facility] [address] [place] [address] Dr. Nabil Dukemphocytes/100 WBC (Bld)26.3 %Fkmscs80.5-60.0The [facility] HospitalComment on above:Performed By: #### PSASC #### [facility] [address] [place] [address] Dr. Nabil CheMANUAL DIFF REQNONormalThe [facility] HospitalComment on above: Performed By: #### PSASC #### [facility] [address] [place] [address] Dr. Nabil Camara (RBC) [Entitic mass]31.2 guGblikq53.9-34.0The [facility] HospitalComment on above:Performed By: #### PSASC #### [facility] [address] [address] [address] Nabil JallohHC (RBC) [Mass/Vol]35.2 g/tVCttnho87.9-35.2The [facility] HospitalComment on above:Performed By: #### PSASC #### [facility] [address] [place] [address] Dr. Nabil JallohV (RBC) [Entitic vol]88.6 pXEgeraa66.0-94.0The [facility] HospitalComment on above:Performed By: #### PSASC #### [facility] [address] [place] [address] Dr. Nabil Agee #1.3 103/ulCritically high0.3-0.8The [facility] Comment on above:Performed By: #### PSASC #### [facility] [address] [place] [address] Dr. Nabil Hardyocytes/100 WBC (Bld)13.3 %Critically high1.7-12.0The [facility] HospitalComment on above:Performed By: #### PSASC #### [facility] [address] [place] [address] Dr. Nabil Stout #5.2 103/ulNormal1.4-6.5The [facility] HospitalComment on above:Performed By: #### PSASC #### [facility] [address] [place] [address] Dr. Nabil Montesinosutrophils/100 WBC (Bld)55.2 %Hmxfmk43.0-75.0The [facility] HospitalComment on above:Performed By: #### PSASC #### [facility] [address] [place] [address] Dr. Nabil Grecolet mean volume (Bld) [Entitic vol]10.4 fLNormal9.5-13.5The [facility] HospitalComment on above:Performed By: #### PSASC #### [facility] [address] [place] [address] Dr. Nabil ChePLT199 103/scQpzgdk884-353Bnx [facility] HospitalComment on above: Performed By: #### PSASC #### [facility] [address] [place], [place] [address] Dr. Nabil CheRBC5.55 106/ulNormal4.70-6.10The [facility] on above:Performed By: #### PSASC #### [facility] [address] [place], [place] [address] Dr. Nabil CheWBC9.4 103/ulNormal4.0-11.0The [facility] HospitalCommunson healthcare [facility] on above: Performed By: #### PSASC #### [facility] [address] [id number] Nabil Julio Visit (Cardiology)on 75-70-5011Jnkbld-up visit Diagnoses/Problems Assessed Paroxysmal atrial fibrillation (427.31) [...] Weight Tips; Status:Complete - Retrospective Authorization; Done: [id number] Some eating tips that can help you lose weight.; Status:Complete - Retrospective Authorization; Done: [id number] Paroxysmal atrial fibrillation IO EKG Electrocardiogram- 12 Lead; Status:Complete; Done: [id number] SocHx: Current every day smoker You need to stop smoking. Though it is not easy, more than half of all adult smokers have quit. We encourage you to write down all the reasons you should quit smoking and set a quit date for yourself. Ask us how we can help. You may also call 5-479-LQUT-NOW for free resources and assistance.; Status:Complete - Retrospective Authorization; Done: [id number] Tobacco Use Screening; Status:Complete; Done: [id number] Patient Instructions Please bring all medicines, vitamins, [...] any palpitations since he started taking magnesium ujct-tqz-rmsxjie. He is on Multaq and his rhythm [...] 10 MG Oral TabletTake 1 tablet daily Laporte 3 1000 MG Oral CapsuleTAKE 2 CAPSULE [...] negative for complaint. Vitals Vital Signs Recorded: [id number] 09:01AM Heart Rate52, L Radial Gyzsiedb599, LUE, Sitting Ahuinmjdm05, LUE, Sitting Height5 ft 11 in Ajkyxz204 lb BMI Jhxpbbojcn67.75 kg/m2 BSA Calculated2.29 Tobacco Usea) Yes Patient encouraged to stop using tobacco productsYes PHQ-2 #1. Over the last 2 weeks have you felt down, depressed or hopeless? (If yes, answer PHQ-9 below)No PHQ-2 #2. Ove (more content not included)...NormalUH TouchworksPROF CHEM 8 (BAS METB)on 61-27-7285Ilmsm gap [Moles/Vol]12.2 mmol/LNormalThe [facility] Comment on above:Performed By: #### PSASC #### [facility] [address] [address] [address] Nabil CheCalcium [Mass/Vol]9.1 mg/dLNormal8.5-10.1[facility] Comment on above:Performed By: #### PSASC #### [facility] [address] [address] [address] Nabil CheChloride [Moles/Vol]103 mmol/GMphhct60-952Ggb [facility] Comment on above:Performed By: #### PSASC #### [facility] [address] [place] [address] Dr. Nabil CheCO2 [Moles/Vol]29.0 mmol/MHblzdb67.0-32.0The [facility] Comment on above:Performed By: #### PSASC #### [facility] [address] [place] [address] Dr. Nabil CheCreatinine [Mass/Vol]1.01 mg/dLNormal0.70-1.30The [facility] HospitalComment on above:Performed By: #### PSASC #### [facility] [address] [place] [address] Dr. Nabil VitalGFR-AF MOLDOVAN>60Normal>=60The [facility] HospitalComment on above:Performed By: #### PSASC #### [facility] [address] [place] [address] Dr. Nabil VitalGFR-NON AF MOLDOVAN>60Normal>=60The [facility] HospitalComment on above:Performed By: #### PSASC #### [facility] [address] [place] [address] Dr. Nabil CheGlucose [Mass/Vol]113 mg/dLCritically zgsf22-399Cpd [facility] HospitalComment on above:Performed By: #### PSASC #### [facility] [address] [place] [address] Dr. Nabil ChePotassium [Moles/Vol]4.2 mmol/LNormal3.5-5.1The [facility] Comment on above:Performed By: #### PSASC #### [facility] [address] [place] [address] Dr. Nabil CheSodium [Moles/Vol]140 mmol/ZLxodiz363-751Ykl [facility] Comment on above:Performed By: #### PSASC #### [facility] [address] [place] [address] Dr. Nabil CheUrea nitrogen [Mass/Vol]9.0 mg/dLNormal7.0-18.0[facility] Medical CenterComment on above:Performed By: #### PSASC #### [facility] [address] [place] [address] Dr. Nabil Granado nitrogen/Creatinine [Mass ratio]8.9 mg/mgNoSCCI Hospital LimaComment on above:Performed By: #### PSASC #### [facility] [address] [address] [address] Nabil Chacon Screening.on 78-47-3951Uywbj depression screening lzxwkmgbitLbPK-Slyhstmbtz-Hvmmktii 250 DO Work Phone: Tobacco use status CPHSa) TfrKZ-Uzogdhexhq-Nwehdyay 250 DO Work Phone: Tobacco Screening.BtyUK-Dbjqsgwuiy-Zawxcjvz 250 DO Work Phone: Lab Reportson [id number] Reports [id number]#1.00CD:[address] [place], [place] [address]PROTIMEon 32-79-0594CLA Coag (PPP) [Relative time]2.87 {INR}NormalThe [facility] HospitalComment on above:Performed By: #### PT #### [facility] [address] [place] [address] Dr. Nabil Farah GUIDELINESSEE BELOWProMedica Flower HospitalComment on above:Result Comment: DESIRED INR: 2.0 - 3.0 CONDITIONS NOT LISTED BELOW 2.5 - 3.5 FOR PROSTHETIC HEART VALVE REPLACEMENT 2.5 - 3.5 RECURRENT THROMBOSIS Performed By: #### PT #### [facility] [address] [place] [address] Dr. Nabil Peterson Coag (PPP) [Time]28.7 sCritically high9.0-11.6The [facility] HospitalComment on above:Performed By: #### PT #### [facility] [address] [place] [address] Dr. Nabil Bright Reportson 32-38-1890Bhc Reports [id number]#1.00CD:[address] [place], [place] [address]PROTIMEon 24-25-3991VVS Coag (PPP) [Relative time]2.17 {INR}NormalUniversity Hospitals Ahuja Medical CenterComment on above:Performed By: #### PSASC #### [facility] [address] [place] [address] Dr. Nabil [address] Rita's HospitalComment on above:Result Comment: DESIRED INR: 2.0 - 3.0 CONDITIONS NOT LISTED BELOW 2.5 - 3.5 FOR PROSTHETIC HEART VALVE REPLACEMENT 2.5 - 3.5 RECURRENT THROMBOSIS Performed By: #### PSASC #### [facility] [address] [place] [address] Dr. Nabil Peterson Coag (PPP) [Time]22.3 sCritically high9.0-11.6The [facility] HospitalComment on above:Performed By: #### PSASC #### [facility] [address] [place] [address] Dr. Nabil Bright Reportson 37-32-5898Ezb Reports [id number]#1.00CD:[address] [place], [place] [address]PROTIMEon 07-95-8069WDI Coag (PPP) [Relative time]1.09 {INR}NormalUniversity Hospitals Ahuja Medical CenterComment on above:Performed By: #### PT #### [facility] [address] [place] [address] Dr. Nabil [address] G[address]SEE [address] Rita's HospitalComment on above:Result Comment: DESIRED INR: 2.0 - 3.0 CONDITIONS NOT LISTED BELOW 2.5 - 3.5 FOR PROSTHETIC HEART VALVE REPLACEMENT 2.5 - 3.5 RECURRENT THROMBOSIS Performed By: #### PT #### [facility] [address] [place] [address] Dr. Nabil Peterson Coag (PPP) [Time]11.7 sCritically high9.0-11.6ThAshtabula County Medical CenterComment on above:Performed By: #### PT #### [facility] [address] [place] [address] Dr. Nabil Bright Reportson 12-49-1698Dcf Reports [id number]#1.00CD:127[facility] Medical CenterPROTIMEon 74-97-2329VYN Coag (PPP) [Relative time]1.11 {INR}NormalUniversity Hospitals Ahuja Medical CenterComment on above:Performed By: #### PSASC #### [facility] [address] [place] [address] Dr. Nabil Far[address] GUID[address]ESSEE [address] Rita's HospitalComment on above:Result Comment: DESIRED INR: 2.0 - 3.0 CONDITIONS NOT LISTED BELOW 2.5 - 3.5 FOR PROSTHETIC HEART VALVE REPLACEMENT 2.5 - 3.5 RECURRENT THROMBOSIS Performed By: #### PSASC #### [facility] [address] [place] [address] Dr. Nabil Peterson Coag (PPP) [Time]11.9 sCritically high9.0-11.6The [facility] HospitalComment on above:Performed By: #### PSASC #### [facility] [address] [place] [address] Dr. Nabil Bright Reportson 51-46-5788Wof Reports [id number]#1.00CD:[address] [place], [place] [address]PROTIMEon 14-99-4058ZUE Coag (PPP) [Relative time]1.84 {INR}NormalUniversity Hospitals Ahuja Medical CenterComment on above:Performed By: #### PT #### [facility] [address] [place] [address] Dr. Nabil Farah GUID[address]INESSEE [address] Rita's HospitalComment on above:Result Comment: DESIRED INR: 2.0 - 3.0 CONDITIONS NOT LISTED BELOW 2.5 - 3.5 FOR PROSTHETIC HEART VALVE REPLACEMENT 2.5 - 3.5 RECURRENT THROMBOSIS Performed By: #### PT #### [facility] [address] [address] [address] Nabil Peterson Coag (PPP) [Time]19.1 sCritically high9.0-11.6The [facility] HospitalComment on above:Performed By: #### PT #### [facility] [address] [place] [address] Dr. Nabil Bright Reportson 76-88-6275Hsy Reports [id number]#1.00CD:[address] [place], [place] [address]PROTIMEon 69-44-0188HLE Coag (PPP) [Relative time]1.91 {INR}NormalThe [facility] HospitalComment on above:Performed By: #### PSASC #### [facility] [address] [place] [address] Dr. Nabil Farah GUIDELINESSEE BELOWProMedica Flower HospitalComment on above:Result Comment: DESIRED INR: 2.0 - 3.0 CONDITIONS NOT LISTED BELOW 2.5 - 3.5 FOR PROSTHETIC HEART VALVE REPLACEMENT 2.5 - 3.5 RECURRENT THROMBOSIS Performed By: #### PSASC #### [facility] [address] [place] [address] Dr. Nabil Peterson Coag (PPP) [Time]19.8 sCritically high9.0-11.6The [facility] HospitalComment on above:Performed By: #### PSASC #### [facility] [address] [place] [address] Dr. Nabil CheConsultation Noteon 57-85-5281Jsiwkbofvpqo Note [id number]:127[facility] Medical CenterTobacco Screening.on 71-35-3082Bovjz depression screening assessmentSaint [facility]'s [facility] 250 DO Work Phone: Tobacco use status CPHSa) [facility] [place] 250 DO Work Phone: Tobacco Screening.YesProvidence [facility] 250 DO Work Phone: Lab Reportson [id number] Reports [id number]:[facility] CountyNelaOhioHealth Marion General HospitalCB AUTO DIFFon 21-59-5417DTEE #0.1 103/ulNormal0.0-0.1The [facility] HospitalComment on above:Performed By: #### CBC #### [facility] [address] [place] [address] Dr. Nabil CheBasophils/100 WBC (Bld)0.8 %Normal0.2-2.0[facility] Comment on above:Performed By: #### CBC #### [facility] [address] [place] [address] Dr. Nabil Steven #0.3 103/ulNormal0.0-0.7The [facility] HospitalComment on above: Performed By: #### CBC #### [facility] [address] [place] [address] Dr. Nabil Vitalosinophils/100 WBC (Bld)3.2 %Normal0.9-7.0[facility] Comment on above:Performed By: #### CBC #### [facility] [address] [place] [address] Dr. Nabil Vitalrythrocyte distribution width (RBC) [Ratio]13.1 %Qeshrp08.0-15.0 The [facility] HospitalComment on above:Performed By: #### CBC #### [facility] [address] [place] [address] Dr. Nabil CheHematocrit (Bld) [Volume fraction]46.8 %Lxjnte40.0-54.0The [facility] HospitalComment on above:Performed By: #### CBC #### [facility] [address] [place] [address] Dr. Nabil CheHemoglobin (Bld) [Mass/Vol]16.4 g/lELvcdjx89.0-18.0The [facility] HospitalComment on above:Performed By: #### CBC #### [facility] [address] [address] [address] Nabil Huang #0.04 10e3/ulCritically high0.00-0.03The [facility] Comment on above:Performed By: #### CBC #### [facility] [address] [place] [address] Dr. Nabil Huang %0.4 %Normal0.0-0.5The [facility] HospitalComment on above: Performed By: #### CBC #### [facility] [address] [place] [address] Dr. Nabil Briseno #2.8 103/ulNormal1.2-3.8The [facility] HospitalComment on above:Performed By: #### CBC #### [facility] [address] [place] [address] Dr. Nabil Donaldhocytes/100 WBC (Bld)29.6 %Vbjpkt39.5-60.0The [facility] HospitalComment on above:Performed By: #### CBC #### [facility] [address] [place] [address] Dr. Nabil MenjivarUAL DIFF REQNONormalThe [facility] HospitalComment on above: Performed By: #### CBC #### [facility] [address] [place] [address] Dr. Nabil Camara (RBC) [Entitic mass]31.3 oxGpjyip24.9-34.0The [facility] HospitalComment on above:Performed By: #### CBC #### [facility] [address] [place] [address] Dr. Nabil Jalloh (RBC) [Mass/Vol]35.0 g/fZAgtvpw32.9-35.2The [facility] HospitalComment on above:Performed By: #### CBC #### [facility] [address] [place] [address] Dr. Nabil Jalloh (RBC) [Entitic vol]89.3 pPBcdgsb64.0-94.0The [facility] HospitalComment on above:Performed By: #### CBC #### [facility] [address] [address] [address] Nabil Agee #1.4 103/ulCritically high0.3-0.8[facility] Comment on above:Performed By: #### CBC #### [facility] [address] [address] [address] Nabil Hardyocytes/100 WBC (Bld)14.5 %Critically high1.7-12.0The [facility] HospitalComment on above:Performed By: #### CBC #### [facility] [address] [address] [address] Nabil Stout #4.9 103/ulNormal1.4-6.5The [facility] HospitalComment on above:Performed By: #### CBC #### [facility] [address] [place] [address] Dr. Nabil Montesinosutrophils/100 WBC (Bld)51.5 %Yzrtfq37.0-75.0The [facility] HospitalComment on above:Performed By: #### CBC #### [facility] [address] [address] [address] Nabil Salvador mean volume (Bld) [Entitic vol]10.6 fLNormal9.5-13.5The [facility] HospitalComment on above:Performed By: #### CBC #### [facility] [address] [place] [address] Dr. Nabil ChePLT173 103/qnKyhong621-078Ewz [facility] HospitalComment on above: Performed By: #### CBC #### [facility] [address] [place] [address] Dr. Nabil CheRBC5.24 106/ulNormal4.70-6.10The [facility] HospitalComment on above:Performed By: #### CBC #### [facility] [address] [place] [address] Dr. Nabil CheWBC9.4 103/ulNormal4.0-11.0The [facility] HospitalComment on above: Performed By: #### CBC #### [facility] [address] [address] [address] Nabil ChePROF CHEM 8 (BAS METB)on 82-05-2955Vlqxx gap [Moles/Vol]11.7 mmol/LNormalUniversity Hospitals Ahuja Medical CenterComment on above:Performed By: #### BMP #### [facility] [address] [address] [address] Nabil CheCalcium [Mass/Vol]8.1 mg/dLCritically low8.5-10.1The [facility] HospitalComment on above:Performed By: #### BMP #### [facility] [address] [address] [address] Nabil CheChloride [Moles/Vol]103 mmol/TLjskag94-231IzfUniversity Hospitals Ahuja Medical Center Comment on above:Performed By: #### BMP #### [facility] [address] [place] [address] Dr. Nabil CheCO2 [Moles/Vol]28.1 mmol/FNdnuoa82.0-32.0[facility] Comment on above:Performed By: #### BMP #### [facility] [address] [address] [address] Nabil CheCreatinine [Mass/Vol]1.34 mg/dLCritically high0.70-1.30The [facility] HospitalComment on above:Performed By: #### BMP #### [facility] [address] [address] [address] Nabil VitalGFR-AF MOLDOVAN>60Normal>=60The [facility] HospitalComment on above:Performed By: #### BMP #### [facility] [address] [address] [address] Nabil VitalGFR-NON AF GJRUKUNU12 mL/min/1.69q1Qsdldojiev low>=60The [facility] HospitalCommunson healthcare [facility] on above:Performed By: #### BMP #### [facility] [address] [address] [address] Nabil CheGlucose [Mass/Vol]87 mg/rLOwrqel11-276CmbUniversity Hospitals Ahuja Medical Center Comment on above:Performed By: #### BMP #### [facility] [address] [address] [address] Nabil ChePotassium [Moles/Vol]4.8 mmol/LNormal3.5-5.1[facility] Comment on above:Performed By: #### BMP #### [facility] [address] [address] [address] Nabil CheSodium [Moles/Vol]138 mmol/HCyscqs555-266Wrl [facility] Comment on above:Performed By: #### BMP #### [facility] [address] [address] [address] Nabil CheUrea nitrogen [Mass/Vol]14.0 mg/dLNormal7.0-18.0The [facility] HospitalComment on above:Performed By: #### BMP #### [facility] [address] [place] [address] Dr. Nabil CheUrea nitrogen/Creatinine [Mass ratio]10.4 mg/mgNoSelect Medical Specialty Hospital - Southeast Ohioe [facility] HospitalComment on above:Performed By: #### BMP #### [facility] [address] [place] [address] Dr. Nabil Kern 67-04-0947ADB Coag (PPP) [Relative time]2.25 {INR} NormalUniversity Hospitals Ahuja Medical CenterComment on above:Performed By: #### PSASC #### [facility] [address] [place] [address] Dr. Nabil Farah GUIDELINESSEE BELOWProMedica Flower HospitalComment on above:Result Comment: DESIRED INR: 2.0 - 3.0 CONDITIONS NOT LISTED BELOW 2.5 - 3.5 FOR PROSTHETIC HEART VALVE REPLACEMENT 2.5 - 3.5 RECURRENT THROMBOSIS Performed By: #### PSASC #### [facility] [address] [place] [address] Dr. Nabil ChePT Coag (PPP) [Time]23.0 sCritically high9.0-11.6The [facility] HospitalComment on above:Performed By: #### PSASC #### [facility] [address] [place] [address] Dr. Nabil Bright Reportson 61-13-1550Apc Reports [id number]#1.00CD:Ste[facility] HospitalLab [id number]#1.00CD:CharyUniversity Hospitals Elyria Medical CenterOutsLehigh Valley Hospital - Hazelton Hospital Correspondenceon 13-04-1266Skqcigt IP Hospital [id number]#1.00CD:Mary Ruth Johns Hopkins HospitalPROTIMEon 56-48-8206XGR Coag (PPP) [Relative time] 1.70 {INR}NormalUniversity Hospitals Ahuja Medical CenterComment on above:Performed By: #### PSASC #### [facility] [address] [place] [address] Dr. N[address] Rita's HospitalComment on above:Result Comment: DESIRED INR: 2.0 - 3.0 CONDITIONS NOT LISTED BELOW 2.5 - 3.5 FOR PROSTHETIC HEART VALVE REPLACEMENT 2.5 - 3.5 RECURRENT THROMBOSIS Performed By: #### PSASC #### [facility] [address] [place] [address] Dr. Nabil Peterson Coag (PPP) [Time]17.7 sCritically high9.0-11.6The [facility] HospitalComment on above:Performed By: #### PSASC #### [facility] [address] [place] [address] Dr. Nabil Bustos 43-40-9197Btfqygkyx From: Jarett GUDINO DO To: [facility] - Clinical; Sent: 09/21/2021 19:58:49 EDT Show up: 09/21/2021 19:59:00 EDT Subject: Ambulatory Reminder Due Date/Time: 09/22/2021 19:58:00 EDT MRI is negative Results: Date Result Type Result Name 09/21/2021 17:20 Radiology MRI Brain w/ + w/o Contrast LMOM for patient to return call. Patient returns call, message given and verbalized understanding. 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 CD:[id number]+PGhlYWQ+HN9QUHPwB99osMFacC3RB1hVLF7AJNNICMRJGX0DRU7pp IY3CVmiJ0IdeaCv [file] IGNv (more content not included)...[facility] CenterMRI Brain w/ + w/o Contraston 83-41-1646JEJ Brain w/ + w/o ContrastExam Date/Time: 09/16/2021 [...] Technical Comments MultiHance Contrast amount in ml's: 20NoOhioHealth Marion General HospitalConsent for Treatmenton 63-48-2352Lcgxrkt for Treatment [id number]#1.00CD:127NoOhioHealth Marion General HospitalRAD - MRI Screening Formon 41-26-1862XCN - MRI Screening Form [id number]#1.00CD:127[facility] CenterAmbulatory Visit Summaryon 46-65-9210Jyrsxowttd Visit Summary ABHINAV LEZAMA :1960 Visit Date:09/09/2021 [...] Appointments Follow Up with Jarett GUDINO DO, [facility] When: In 1 year Where: [address] [facility] [address] [place] [address]- You Need to Complete the Following MRI Brain w/o Contrast, 09/09/21, Routine, Order for Future Visit, Transport Mode: Ambulatory, Reason: Headache, No, No, DizzinessNormalTrigeminal neuralgia, Need IAC evaluation, pp_set_radiology_subspecialty, [facility]\.br\ Medica tions\.br\ What How Much When Instructions\.br\ [...] neoplasm of prostate\.br\ Trigeminal neuralgia\.br\ Vasovagal attack\.br\ \.br\[facility] CenterFaboston regional medical center Medicine Office/Clinic Noteon 79-81-1769Xnxrju Medicine Office/Clinic NoteChief Complaint Yearly Follow Up [...] he has his labs drawn monthly at [facility], but no results are documented or filed in the chart. Also takes Aciphex 20mg once daily. States this is still working well for him. Labs completed at [facility] on 09/05/21. States he has had [place] colon[place] within the past [address] [place] [place] History of Present Illness [...] In 1 year [address] [place] [address]- Additional Instructions: Problem List/Past Medical [...] Patient Refuses influenza virus vaccine, inactivated 02/12/2013 RecordedNormalBarney Children'S Medical CenterComment on above:Result Comment: Electronically Signed By: Jarett GUDINO DO\.br\Date and Time Signed: 09/09/21 10:19 EDTLab Reportson 12-13-5854Agr [id number]#1.00CD:127Normal [facility]S Medical CenterTobacco Screening.on 14-73-4304Ldxnewy use status CPHSa) Yes-[facility] 250 DO Work Phone: Tobacco Screening.Yes-[facility] 250 DO Work Phone: CBCon 20-10-6309Ontnpwzwlmc distribution width (RBC) [Ratio]12.9 %Toahob85.5 - 14.5UH [facility] State HospitalComment on above:Performed By: #### CBC #### [address] [address]Hohzgmyswl (Bld) [Volume fraction]48.1 %Qvkfwq98.0 - 52.0[facility] HospitalComment on above:Performed By: #### CBC #### [address] [address]Nedapmvrmx (Bld) [Mass/Vol]16.7 g/rSYklgjt60.5 - 17.5[facility] HospitalComment on above:Performed By: #### CBC #### [address] [address]LSPC (RBC) [Mass/Vol]34.7 g/gNHrwlav61.0 - 36.0AdventHealth Castle RockComment on above:Performed By: #### CBC #### [address] [address]PUT (RBC) [Entitic vol]91 nGCjovbj74 - 100AdventHealth Castle RockComment on above:Performed By: #### CBC #### [address] [address]Dvjzkkfyk (Bld) [#/Vol]182 10*3/qIDccciq255 - 450UH [facility] HospitalComment on above:Performed By: #### CBC #### [address] [address]PVC (Bld) [#/Vol]5.26 x10E12/LNormal4.50 - 5.90AdventHealth Castle RockComment on above:Performed By: #### CBC #### [address] [address]YOF (Bld) [#/Vol]9.3 10*3/uLNormal4.4 - 11.3AdventHealth Castle RockComment on above:Performed By: #### CBC #### [address] [address]BKJBLGXOSDes 52-93-9927Qzeavcqvvk [Mass/Vol]0.87 mg/dLNormal0.50 - 1.30AdventHealth Castle RockComment on above:Performed By: #### CREAT #### [address] [address]Sykostgmhm [Mass/Vol]mg/dLNormal>60[facility] Comment on above:Result Comment: CALCULATIONS OF ESTIMATED GFR ARE PERFORMED USING THE MDRD STUDY EQUATION FOR THE IDMS-TRACEABLE CREATININE METHODS. CLIN CHEM 2007;53:766-72Performed By: #### CREAT #### [address] [address]GTLLLQXEUYP PANELon 36-15-9588Rmxey gap [Moles/Vol]12 mmol/L Lookdi27 - 20[facility] HospitalComment on above:Performed By: #### ELECT #### [address] [address]Lnajueku [Moles/Vol]105 mmol/JEmmdsl65 - 107[facility] HospitalComment on above:Performed By: #### ELECT #### [address] [address]BIJ8 (Bld) [Moles/Vol]28 mmol/YOrnqao86 - 32UH [facility] HospitalComment on above:Performed By: #### ELECT #### [address] [address]Hsqbrsaad [Moles/Vol]4.1 mmol/LNormal3.5 - 5.3[facility] HospitalComment on above:Performed By: #### ELECT #### [address] [address]Ovknua [Moles/Vol]141 mmol/XNsvwwx374 - 145UH [facility] HospitalComment on above:Performed By: #### ELECT #### [address] [address]VJTS NITROGENon 60-04-7218Iufu nitrogen [Mass/Vol]12 mg/dLNormal 6 - 23[facility] HospitalComment on above:Performed By: #### UREA #### [address] [address]MOL (SGPT)on 37-75-3586RSR enzyme act/vol18 U/ZFjcyde35-12AUZ HealthcareComment on above:Performed By: #### [id number] ####[facility] [address] [place] [address]GGC (SGOT)on 12-26-2017 AST enzyme act/vol20 U/SDsgvsr33-58DPE HealthcareComment on above:Performed By: #### [id number] ####[address] [address]BTTjt 70-28-7939Mwvbdybejyz distribution width Auto Ratio (RBC)13.4 %Jgvabh97.0-15.4EMH HealthcareComment on above:Performed By: #### [id number] ####[address] [address]Jczqqeuawq Auto Volume Fraction (Bld)48.6 %Qxzfhz55.4-54.9[facility] Comment on above:Performed By: #### [id number] ####[address] [address]Caeungivhw mass conc (Bld)16.3 g/aLZxtnoq06.8-17.7EMH HealthcareComment on above:Performed By: #### [id number] ####[address] [address] MCH Auto Entitic mass (RBC)31.0 luAylvhd10.5-32.9EMH HealthcareComment on above: Performed By: #### [id number] ####[facility] [address] [place] [address]RUCP Auto mass conc (RBC)33.5 g/qNDtvbqt23.5-35.4EMH HealthcareComment on above:Performed By: #### [id number] ####[facility] [address] [place], [place] [address]TDX Auto Entitic volume (RBC)92.6 nQRqqman01.3-98.2EMH HealthcareComment on above:Performed By: #### [id number] ####[facility] [address] [place] [address]ROWF Absolute0.00 10*3/uLNormalEMH HealthcareComment on above:Performed By: #### [id number] ####[address] [address]MOZE Automated0.0 /100{WBCs}NormalEMH HealthcareComment on above:Performed By: #### [id number] ####[address] [address]Svmjnanq mean volume Auto Entitic volume (Bld) 12.0 fLNormal9.9-12.1EMH HealthcareComment on above:Performed By: #### [id number] ####[address] [address] Platelets Auto #/vol (Bld)156 10*3/jYBomfiy744-571DTD HealthcareComment on above:Performed By: #### [id number] ####[address] [address]CXX Auto #/vol (Bld)5.25 10*6/uLNormal4.08-6.37 EMH HealthcareComment on above:Performed By: #### [id number] ####[address] [address]YZC SD45.5 fL Oywzdr57.3-48.6EMH HealthcareComment on above:Performed By: #### [id number] ####[address] [address] WBC Auto #/vol (Bld)7.2 10*3/uLNormal4.2-11.0EMH HealthcareComment on above: Performed By: #### [id number] ####[address] [address]Tzhrwrmkerkz 82-31-4562Adstqhorgi mass conc0.92 mg/dL Normal0.50-1.30EMH HealthcareComment on above:Performed By: #### [id number] ####[facility] Qgr[address] [place] [address] GFR/1.73 sq M.predicted MDRD vol rate/areamL/min/{1.73_m2}NormalEMH Healthcare Comment on above:Result Comment: Interpretation for Chronic Kidney Disease:Stages 1&2 >60 Healthy or potential kidney damage.Mild decrease of GFR.Stage 3 30-59 Moderate decrease of GFR.Stage 4 15-29 Severe decrease of GFR.Stage 5 <15 Kidney failure or on dialysis.Performed By: #### [id number] ####[facility] Jpn[address] [place] [address] Electrolyte Panelon 80-08-8828Tlvpv gap 3 molar conc9 mmol/SHha06-18EGY HealthcareComment on above:Performed By: #### [id number] ####[facility] Rvu[address] [place], [place] [address]Zkoilkft molar mxuf584 mmol/NRkeznk42-963BDK HealthcareComment on above:Performed By: #### [id number] ####[facility] [address] [place] [address] HCO3 molar conc (Bld)29 mmol/TBebdcl34-67CQU HealthcareComment on above: Performed By: #### [id number] ####[facility] Hz[address] [place], [place] [address]Ofggmbegj molar conc4.1 mmol/LNormal3.5-5.1EMH HealthcareComment on above:Performed By: #### [id number] ####[facility] T[address] [place], [place] [address]Vbpxrv molar cqmx501 mmol/GLgwezc680-891OUV HealthcareComment on above:Performed By: #### [id number] ####[facility] [address] [place] [address] Urea Nitrogenon 55-95-8205Zjjl nitrogen mass conc10 mg/dLNormal6-23EMH HealthcareComment on above:Performed By: #### [id number] ####[facility] T[address] [place] [address] Vital Signs Date TimeVital SignValuePerforming JadqghxvbPygkzkrl22-60-8677 14:00-0400Body utynoy567.34 cmJared Leong MD Work Phone: [phone] [place], [place] 1870210-20-2025 14:00-0400 Body mass index (BMI) [Ratio]30.7 kg/z8NksghoJared Leong MD Work Phone: [phone])[address] [place], [place] 1870210-20-2025 14:00-0400 Body nwvvah97.79 kgJared Leong MD Work Phone: [phone])[address] [place], [place] 1870210-20-2025 14:00-0400 Diastolic blood beobzrfk52 mm[Hg]Jared Leong MD Work Phone: 1(695)[address] [place], [place] 1870210-20-2025 14:00-0400 Heart rate89 /Charla Leong MD Work Phone: [phone])[address] [place], [place] 1870210-20-2025 14:00-0400 SaO2% (BldA) [Mass fraction]96 %Jared Leong MD Work Phone: 1(419)[address] [place], [place] 1870210-20-2025 14:00-0400 Systolic blood ifsfwstt049 mm[Hg]Jared Leong MD Work Phone: 1(624)[address] [place], [place] 1870208-27-2025 11:35-0400 Body veyugv488.34 cmJared Leong MD Work Phone: 1(499)[address] [place], [place] 1870208-27-2025 11:35-0400 Body mass index (BMI) [Ratio]31.2 kg/b2UqmmwkJared Leong MD Work Phone: 1(419)[address] [place], [place] 1870208-27-2025 11:35-0400 Body ozvihi045.6 kgJared Leong MD Work Phone: 1(853)[address] [place], [place] 1870208-27-2025 11:35-0400 Diastolic blood prfbbffe35 mm[Hg]Jared Leong MD Work Phone: 1(281)[address] [place], [place] 1870208-27-2025 11:35-0400 Heart rate56 /Charla Leong MD Work Phone: 1(281)[address] [place], [place] 1870208-27-2025 11:35-0400 Systolic blood knuntlmv245 mm[Hg]Jared Leong MD Work Phone: 1(352)[address] [place], [place] 1870207-16-2025 13:12-0400 Body avwafs229.34 cmJared Leong MD Work Phone: 1(850)[address] [place], [place] 1870207-16-2025 13:12-0400 Body mass index (BMI) [Ratio]31.1 kg/p3OoxldfJared Leong MD Work Phone: [phone])[address] [place], [place] 1870207-16-2025 13:12-0400 Body cidvqczvnfs75.8 [degF]Jared Leong MD Work Phone: 1(356)[address] [place], [place] 1870207-16-2025 13:12-0400 Body .37 kgJared Leong MD Work Phone: 1(494)[address] [place], [place] 1870207-16-2025 13:12-0400 Diastolic blood latuawxk23 mm[Hg]Jared Leong MD Work Phone: 1(497)[address] [place], [place] 1870207-16-2025 13:12-0400 Heart rate63 /Charla Leong MD Work Phone: 1(469)[address] [place], [place] 1870207-16-2025 13:12-0400 Systolic blood aqpktbce473 mm[Hg]Jared Leong MD Work Phone: 1(534)[address] [place], [place] 1870205-22-2025 09:40-0400 Diastolic blood ijtbqixf33 mm[Hg]Jared Leong MD Work Phone: 1(846)[address] [place], [place] 1870205-22-2025 09:40-0400 Heart rate58 /Charla Leong MD Work Phone: 1(076)[address] [place], [place] 1870205-22-2025 09:40-0400 Respiratory rate20 /Charla Leong MD Work Phone: 1(112)[address] [place], [place] 1870205-22-2025 09:40-0400 SaO2% (BldA) [Mass fraction]98 %Jared Leong MD Work Phone: [phone]05-22-2025 09:40-0400 Systolic blood ithtwrnj608 mm[Hg]Jared Leong MD Work Phone: 1(150)[address]05-22-2025 07:27-0400 Body gcqbxo930.34 cmJared Leong MD Work Phone: 1(709)[address]05-22-2025 07:27-0400 Body oeqtiw11.79 kgJared Leong MD Work Phone: 1(199)[address]04-29-2025 14:31-0400 Body pgevxp484.34 cmJared Leong MD Work Phone: 1(084)[address]04-29-2025 14:31-0400 Body mass index (BMI) [Ratio]30.8 kg/s1PpeslaJared Leong MD Work Phone: 1(174)[address] [place], [place] 1870204-29-2025 14:31-0400 Body olelgt814.24 kgJared Leong MD Work Phone: 1(663)[address]04-29-2025 14:31-0400 Diastolic blood cmddusoq78 mm[Hg]Jared Leong MD Work Phone: 1(666)[address]04-29-2025 14:31-0400 Heart rate64 /Charla Leong MD Work Phone: 1(561)[address]04-29-2025 14:31-0400 Respiratory rate20 /Charla Leong MD Work Phone: 1(114)[address]04-29-2025 14:31-0400 SaO2% (BldA) [Mass fraction]97 %Jared Leong MD Work Phone: 1(171)[address]04-29-2025 14:31-0400 Systolic blood unnivvxm530 mm[Hg]Jared Leong MD Work Phone: 1(771)[address]04-25-2025 10:07-0400 Body .34 cmJared Leong MD Work Phone: [facility]04-25-2025 10:07-0400 Body mass index (BMI) [Ratio]30.7 kg/m9WbpopnJared Leong MD Work Phone: [facility]04-25-2025 10:07-0400 Body qiflwc71.79 kgJared Leong MD Work Phone: [facility]04-25-2025 10:07-0400 Diastolic blood svrzfydn45 mm[Hg]Jared Leong MD Work Phone: [facility]04-25-2025 10:07-0400 Heart rate57 /Charla Leong MD Work Phone: [facility]04-25-2025 10:07-0400 Systolic blood vcnvocva776 mm[Hg]Jared Leong MD Work Phone: [phone]04-11-2025 13:19-0400 Body fbtuyy946.3 cmKo Erickson MD Work Phone: 1(326)[address]04-11-2025 13:19-0400 Body mass index (BMI) [Ratio]30.91 kg/m2WbfnblKo Erickson MD Work Phone: [phone])306-[address] [place], [place] 9323404-11-2025 13:19-0400 Body epflbq356.52 kgKo Erickson MD Work Phone: 2(088)183-[address] [place], [place] 9323404-11-2025 13:19-0400 Diastolic blood drgfezxx62 mm[Hg]Ko Erickson MD Work Phone: 5(257)422-[address] [place], [place] 9323404-11-2025 13:19-0400 Heart rate58 /Glo Erickson MD Work Phone: 5(654)[address]04-11-2025 13:19-0400 Systolic blood uzpsztea707 mm[Hg]Ko Erickson MD Work Phone: 7(109)582-[address] [place], [place] 9323402-25-2025 10:48-0500 Body gadess328.34 cmMarcia Leong MD Work Phone: 1(378)[address]02-25-2025 10:48-0500 Body mass index (BMI) [Ratio]30.5 kg/l6KqldbaJared Leong MD Work Phone: 1(311)[address]02-25-2025 10:48-0500 Body lzegji51.33 kgJared Leong MD Work Phone: 1(343)[address] [place], [place] 1870202-25-2025 10:48-0500 Diastolic blood atqwsamy76 mm[Hg]Jared Leong MD Work Phone: 1(281)[address] [place], [place] 1870202-25-2025 10:48-0500 Heart rate58 /minJared Leong MD Work Phone: 1(813)[address] [place], [place] 1870202-25-2025 10:48-0500 Systolic blood ontxmzkw574 mm[Hg]Jared Leong MD Work Phone: 1(046)[address] [place], [place] 1870202-22-2025 09:15-0500 SaO2% (BldA) [Mass fraction]96 %Jared Leong MD Work Phone: 1(201)[address] [place], [place] 1870202-22-2025 09:06-0500 Body pbszke079.34 cmJared Leong MD Work Phone: [phone])[address] [place], [place] 1870202-22-2025 09:06-0500 Body mass index (BMI) [Ratio]30.4 kg/n3RfnjaxJared Leong MD Work Phone: 1(292)[address] [place], [place] 1870202-22-2025 09:06-0500 Body tmygrfflfyt20.4 [degF]Jared Leong MD Work Phone: 1(027)[address] [place], [place] 1870202-22-2025 09:06-0500 Body cxxqso94.05 kgJared Leong MD Work Phone: 1(887)[address] [place], [place] 1870202-22-2025 09:06-0500 Diastolic blood eobynhld10 mm[Hg]Jared Leong MD Work Phone: 1(777)[address] [place], [place] 1870202-22-2025 09:06-0500 Heart rate62 /Charla Leong MD Work Phone: [facility]02-22-2025 09:06-0500 Systolic blood okwfjrol375 mm[Hg]Jared Leong MD Work Phone: [facility]09-13-2024 12:51-0400 Body yhndgi579.3 cmKo Erickson MD Work Phone: 1(314)797-[address] [place], [place] 9323409-13-2024 12:51-0400 Body mass index (BMI) [Ratio]30.96 kg/l2IixpbcKo Erickson MD Work Phone: [phone])[address]09-13-2024 12:51-0400 Body .7 kgKo Erickson MD Work Phone: 1(989)[address]09-13-2024 12:51-0400 Diastolic blood ljlmgkaa07 mm[Hg]Ko Erickson MD Work Phone: 1(064)441-[address] [place], [place] 9323409-13-2024 12:51-0400 Heart rate63 /Glo Erickson MD Work Phone: 1(939)655-[address] [place], [place] 9323409-13-2024 12:51-0400 Systolic blood mm[Hg]Ko Erickson MD Work Phone: 1(391)404-[address] [place], [place] 9323410-24-2023 13:30-0400 Body zpoanh820.61 cmUche Porter Other [employer] Other 10-24-2023 13:30-0400Body mass index (BMI) [Ratio] 32.73 kg/q6YryccUche Catnguyễn Other [employer] Other 10-24-2023 13:30-0400Body speqihoatgn13.1 [degF]Uche Porter Other [employer] Other 10-24-2023 13:30-0400Body nmookf302.96 kgUche Porter Other [employer] Other 10-24-2023 13:30-0400Diastolic blood vfqnajks55 mm[Hg] Uche Porter Other [employer] Other 10-24-2023 13:30-0400Respiratory rate20 /minUche Catban Other [employer] Other 10-24-2023 13:30-4534PdT6% (BldA) [Mass fraction]96 % Uche Porter Other [employer] Other 10-24-2023 13:30-0400Systolic blood vxyryjrq224 mm[Hg] Uche Porter Other [employer] Other 10-20-2023 10:45-0400Body apuryo853.61 cmJared Leong Other [employer] Other 10-20-2023 10:45-0400Body mass index (BMI) [Ratio] 32.92 kg/e8ZqdmwuJared Leong Other [employer] Other 10-20-2023 10:45-0400Body pqywix667.59 kgJared Leong Other [employer] Other 10-20-2023 10:45-0400Diastolic blood totklpvx90 mm[Hg] Jared Leong Other [employer] Other 10-20-2023 10:45-2655RxO9% (BldA) [Mass fraction]97 % Jared Leong Other [facility] [employer] Other 10-20-2023 10:45-0400Systolic blood locbrdga920 mm[Hg] Jared Leong Other [facility] [employer] Other 08-22-2023 09:59-0400Body twygdn388.34 cmJared Leong Work Phone: mp626-1415WS-Smtmh [place] [facility] 250 DO Work Phone: 1(240) 629-999008-22-2023 09:59-0400Body mass index (BMI) [Ratio] 33.19 kg/s4KbsnvjJared Leong Work Phone: mp129-0841JT-Cbxyc [place] [facility] 250 DO Work Phone: 1(886) 696-534208-22-2023 09:59-0400Body surface area Derived from formula2.27 m7BsckezJared Leong Work Phone: mp235-0919CV-Kvotp [place] 250 DO Work Phone: 1(260) 973-434608-22-2023 09:59-0400Body .96 kgJared Leong Work Phone: mp941-5466OC-Fgycc [place] [facility] 250 DO Work Phone: 1(711) 561-435608-22-2023 09:59-0400Diastolic blood dkztawbw54 mm[Hg] Jared Leong Work Phone: mp154-2129AV-Uupce [place] [facility] 250 DO Work Phone: 1(217) 538-679108-22-2023 09:59-0400Heart rate66 /minJared Leong Work Phone: mp125-6211OV-Opulw [place] [facility] 250 DO Work Phone: 1(198) 625-238208-22-2023 09:59-0400Systolic blood tkogjnwh620 mm[Hg] Jared Leong Work Phone: mp734-9301EV-Lpwsf [place] [facility] 250 DO Work Phone: 1(671) 727-565007-18-2023 15:00-0400Body ohtkaf335.61 cmUche Porter Other [employer] Other 07-18-2023 15:00-0400Body mass index (BMI) [Ratio] 33.14 kg/m0DwvraUche Porter Other [employer] Other 07-18-2023 15:00-0400Body xlhospkntpo33.8 [degF]Uche Porter Other [employer] Other 07-18-2023 15:00-0400Body htrady045.32 kgUche Porter Other [employer] Other 07-18-2023 15:00-0400Diastolic blood zyubtlnp76 mm[Hg] Uche Porter Other [employer] Other 07-18-2023 15:00-0400Respiratory rate20 /minUche Porter Other [employer] Other 07-18-2023 15:00-6510BwB5% (BldA) [Mass fraction]96 % Uche Porter Other [employer] Other 07-18-2023 15:00-0400Systolic blood uabiafjp077 mm[Hg] Uche Porter Other [employer] Other 05-15-2023 10:00-0400Body ukskya365.61 cmJared Leong Other [employer] Other 05-15-2023 10:00-0400Body mass index (BMI) [Ratio] 33.97 kg/n4McivgzJared Leong Other [employer] Other 05-15-2023 10:00-0400Body .04 kgEvabrenton Salo Other [employer] Other 05-15-2023 10:00-0400Diastolic blood wpnteezs04 mm[Hg] Jared Leong Other [employer] Other 05-15-2023 10:00-3177SsK9% (BldA) [Mass fraction]92 % Jaredsusi Leong Other [employer] Other 05-15-2023 10:00-0400Systolic blood pqyrpgil958 mm[Hg] Jared Leong Other [employer] Other 02-15-2023 09:01-0500Body zyrdfj978.34 cmJarett Finney [employer] Work Phone: mp551-2467EN-Nbqyxdwobo-[place] 250 DO Work Phone: 1(602) 628-421002-15-2023 09:01-0500Body mass index (BMI) [Ratio] 33.75 kg/j4Qgtcwej S [employer] Work Phone: mp720-6231OD-Fkvhciynfr-[place] 250 DO Work Phone: 1(968) 935-745302-15-2023 09:01-0500Body surface area Derived from formula2.29 u0Iefsbmf S [employer] Work Phone: mp320-2028OF-Aesjkqmkmy-[place] 250 DO Work Phone: 1(594) 365-409602-15-2023 09:01-0500Body exmjfp186.77 kgJarett Finney [employer] Work Phone: mp983-3862FY-Ntdvfeqmww-[place] 250 DO Work Phone: 1(577) 593-674402-15-2023 09:01-0500Diastolic blood dduryumz91 mm[Hg] Jarett S [employer] Work Phone: mp562-3005YZ-Vxkuwensio-[place] 250 DO Work Phone: 1(356) 313-501102-15-2023 09:01-0500Heart rate52 /minJarett Gudino Work Phone: mp362-7659XI-Iwjnqtbvdu-[place] 250 DO Work Phone: 1(943) 534-638802-15-2023 09:01-0500Systolic blood irzeibqn748 mm[Hg] Jarett Gudino Work Phone: mp948-1692WT-Wrsgehdrjx-[place] 250 DO Work Phone: 1(503) 593-647108-16-2022 09:15-0400Body fnybth819.34 cmJarett Gudino Work Phone: mp272-6670KO-Xovbs [place] [facility] 250 DO Work Phone: 1(911) 293-742408-16-2022 09:15-0400Body mass index (BMI) [Ratio] 32.78 kg/t4JlsppxyJarett Gudino Work Phone: mp063-6001LD-Sjaua [place] [facility] 250 DO Work Phone: 1(642) 919-415308-16-2022 09:15-0400Body surface area Derived from formula2.26 z9EarwpgbJarett Gudino Work Phone: mp845-0454EI-Dwwwi [place] [facility] 250 DO Work Phone: 1(596) 495-710408-16-2022 09:15-0400Body dlvlie591.6 kgJarett Gudino Work Phone: mp988-5519KY-Hkxje [place] [facility] 250 DO Work Phone: 1(922) 647-167008-16-2022 09:15-0400Diastolic blood woibgdbc07 mm[Hg] Jarett Gudino Work Phone: mp873-1651NG-Pnwpt [place] [facility] 250 DO Work Phone: 1(110) 246-995508-16-2022 09:15-0400Heart rate50 /minJarett Gudino Work Phone: mp760-5237RS-Naybs [facility] 250 DO Work Phone: 1(323) 234-360108-16-2022 09:15-0400Systolic blood gulhaida194 mm[Hg] Jarett Gudino Work Phone: mp661-3949ZC-Cjqfs [place] [facility] 250 DO Work Phone: 1(304) 819-898205-20-2022 09:34-0400Blood Pressure LocationJarett GUDINO 226-5764Addqwe-GdanxSelect [facility] 05-20-2022 09:34-0400Body bhkskjajyto18.52 [degF] Jarett GUDINO [phone]-ThczxSelect [facility]ty [facility] 05-20-2022 09:34-0400Diastolic blood umudwond85 mm[Hg] Jarett GUDINO [phone]-JzuudSelect [facility] Specialty [facility] 05-20-2022 09:34-0400Heart rate60 /minJarett GUDINO [phone]-PbsppSelect Medical Specialty [facility] 05-20-2022 09:34-6464QvV7% (BldA) [Mass fraction]95 % Jarett GUDINO [phone]-AeevaSelect Medical Specialty Hospital [facility] 05-20-2022 09:34-0400Systolic blood brioijrz016 mm[Hg] Jarett GUDINO 131-8601Mwzmlv-DsadgSelect [facility] Specialty [facility] 02-01-2022 15:13-0500Body .34 cmJartet Gudino Work Phone: mp001-5598KE-Guifw [place] [facility] 250 DO Work Phone: 1(174) 593-207502-01-2022 15:13-0500Body mass index (BMI) [Ratio] 32.36 kg/k0ZqqeussJarett Gudino Work Phone: mp690-1427LQ-Bubdw [place] [facility] 250 DO Work Phone: 1(589) 795-486402-01-2022 15:13-0500Body surface area Derived from formula2.25 f0Lbnygkzadeline Gudino Work Phone: mp783-9999TL-Xojue [place] [facility] 250 DO Work Phone: 1(913) 585-939102-01-2022 15:13-0500Body .24 kgJarett Finney [employer] Work Phone: mp541-6591PN-Lmmko [place] [facility] 250 DO Work Phone: 1(972) 420-224402-01-2022 15:13-0500Diastolic blood smssuxdm43 mm[Hg] Jarett Finney [employer] Work Phone: mp025-8896VX-Lqkqj [facility] 250 DO Work Phone: 1(699) 430-744002-01-2022 15:13-0500Heart rate61 /minJarett Finney [employer] Work Phone: mp750-3668XB-Sfdiv [facility] 250 DO Work Phone: 1(906) 238-292002-01-2022 15:13-0500Systolic blood skajajwu142 mm[Hg] Jarett Finney [employer] Work Phone: mp621-9563PX-Qlpkq [place] [facility] 250 DO Work Phone: Encounters Encounter DateEncounter TypeCare ProviderFacilityStart: 02-09-2025 End: 46-55-1603foojznvijoYhogfc E Braun MD Work Phone: -[facility] BellevueStart: 02-09-2025 End: 12-26-9683Uuvnsqa encounter procedureAubree Louise DO-[facility] [place] Work Phone: Start: 60-76-0616Wyk-patient / Non-visitJared Leong MD-[facility] Work Phone: Start: 12-17-2024 End: 18-85-5281qhudhlggvuEcjhez E Braun MD Work Phone: [facility] Work Phone: Start: 12-17-2024 End: 10-63-4462Shmwiyk encounter procedureJared Leong MD-[facility] Work Phone: Start: 76-39-9446Rad-patient / Non-visitCatherine El LAYTON-[facility] Work Phone: Start: 18-02-3606Gqk-patient / Non-visitShon Sapp DO-[facility] Work Phone: Start: 11-05-2024 End: 18-87-3497spkyltgiigAkhrtl E Braun MD Work Phone: [facility] Work Phone: Start: 11-05-2024 End: 60-34-8553Nnjmdyp encounter procedureJared Leong MD-[facility] Work Phone: Start: 67-21-6111Ksy-patient / Non-visitJared Leong MD Work Phone: [facility] Work Phone: Start: 09-11-2024 End: 37-95-6726Pufnhqhdw to same day surgery centerJared Leong MD Work Phone: [facility] Work Phone: Start: 09-11-2024 End: 70-33-8095lsdjgbcjzzSvdmse E Braun MD Work Phone: [facility] Work Phone: Start: 08-19-2024 End: 24-32-3369Uiubssa encounter procedureJared Leong MD Work Phone: [facility] Work Phone: Start: 08-15-2024 End: 52-56-4014Cjvgaex encounter procedureJared Leong MD Work Phone: [facility] Work Phone: Start: 08-06-2024 End: 02-79-8422Jkplvtx encounter procedureJared Leong MD Work Phone: [facility]-[address] Work Phone: Start: 08-06-2024 End: 44-05-7998nhkudznzkvBstqep E Braun MD Work Phone: [facility] Work Phone: Start: 08-01-2024 End: 84-15-6529Iqvcft outpatient visit 25 Aminta Erickson MD Work Phone: uh [facility] on above:Obesity, Class I, BMI 30- 34.9 (Primary Dx); Paroxysmal atrial fibrillation (Multi); High risk medication use; High triglycerides; Palpitations; Mixed hyperlipidemia; PVC (premature ventricular contraction); BMI 30.0-30.9,adult; Current every day smokerStart: 08-01-2024 End: 96-86-5316cfvbqxxkzcVUDUUM [facility] AmbulatoryStart: 64-31-8799Tel-patient / Non-visitJared Leong MD Work Phone: [facility] Work Phone: Start: 06-17-2024 End: 89-04-9904Thgsjuz encounter procedureJared Leong MD Work Phone: [facility] Work Phone: Start: 06-14-2024 End: 10-83-2234kjxbliiajwOhwqio M GrobFacility:[facility] Start: 06-14-2024 End: 72-00-3797Zwgyune encounter Steven Leong MD Work Phone: [facility] Work Phone: Start: 01-04-2024 End: 06-73-5598Ktgoxu outpatient visit 25 minutesKo Erickson MD Work Phone: uh [facility] on above:Paroxysmal atrial fibrillation (Multi); PVC (premature ventricular contraction); TIA (transient ischemic attack); Mixed hyperlipidemia; High risk medication use; Stage 3a chronic kidney disease (Multi); BMI 30.0-30.9,adult; Current every day smokerStart: 01-04-2024 End: 28-13-6029buuavnewsmYZEJDV M [facility] AmbulatoryStart: 74-65-3082Ltorkjt encounter statusJared Leong MD Work Phone: [facility] Shaw[facility]art: 08-07-2023 End: 86-84-4852zzbchelmahPT Jared Leong Work Phone: [facility] Work Phone: Start: 08-07-2023 End: 29-40-7046Cpyqzfg encounter procedureMD Jared Leong Work Phone: [facility]-[address] Work Phone: Start: 78-01-9480Asv-patient / Non-visitMD Jared Leong Work Phone: [facility] Work Phone: Start: 30-91-6693Bns-patient / Non-visitMD Jared Leong Work Phone: [facility] Work Phone: Start: 02-13-2023 End: 78-64-3450glfjfrdhkzGjzhd Chaban Other [facility] [employer] Other Start: 04-87-1806Gkavit outpatient visit 25 minutes Uche Amador Pulmonary DiseaseStart: 02-09-2023 End: 97-97-1673xkptsomogqWbrsbc Braun Other [facility] [employer] Other Start: 23-37-9418Dkuype outpatient visit 15 minutes Jared [facility]dom [facility] ClinicStart: 42-80-7795Vzelohbrn encounterJared Leong Work Phone: mp130-3209MN-JpqzhFairview [facility] 250 DO Work Phone: Start: 03-13-6397Irndrm outpatient visit 25 minutes Jared Leong Work Phone: mp409-2928OK-Yvzci [place] [facility] 250 DO Work Phone: Start: 98-70-9654mjhfrsoywpCpDr. Jarett Gudino Facility:[id number]: 11-07-2022 End: 26-07-1733xhrpjbckvvCamle Chaban Other [employer] Other Start: 91-78-5672Mspofp outpatient visit 15 minutes Kamal GermanG Pulmonary DiseaseStart: 10-30-2022 End: 10-51-9278ytuapwvydmDfccbc Leong Other [employer] Other Start: 56-53-8662Zbimrntoy encounterMarcia [facility] Medical ClinicStart: 09-29-2022 End: 19-37-2686aiqosyhlltMtuecq Leong Other [employer] Other Start: 06-87-2959Mbxqbafof encounterMarcia [facility] Medical ClinicStart: 09-21-2022 End: 48-08-2301okdvxtvdqtSosstc Leong Other [employer] Other Start: 60-03-1909Dlwiofglb encounterMarcia [facility] Medical ClinicStart: 98-90-5387Idsnlkjdx for general adult medical examination without abnormal findingsMarcia [facility] Medical ClinicStart: 92-30-6450Mbfkkev preventive medicine new patient 40-64yrsMarcia [facility] Medical ClinicStart: 09-04-2022 End: 99-93-4953xacaxkiehoYI JARED Jones R[employer] ([employer] Other Start: 07-27-2022 End: 13-36-1367tieopaxlwwVV GREGORY S GRANTFacility:R0Hlhog: 06-07-2022 End: 43-54-0835maeebkvldtZJ HASSAN M IBRELIOTFacility:I5Uwfer: 05-20-4998Iqhenk outpatient visit 25 minutesJarett Gudino Work Phone: 1(437) [phone]-Scpiyyzqau-[place] 250 DO Work Phone: Start: 62-62-6849sxwutdszrfAimbulatoryDr. Jarett Dhillon Terese Facility:[id number]: 05-24-2022 End: 40-09-6743irfaindayaQS GREGORY S GRANTFacility:E5Vnafw: 04-27-2022 End: 27-75-1666kwkxgdnwlvFN GREGORY S GRANTFacility:Y9Oahmv: 04-07-2022 End: 51-68-2295prabccxjshER GREGORY S GRANTFacility:E1Xbkft: 03-27-2022 End: 15-10-4149adukrybmncSH GREGORY S GRANTFacility:C7Knxpy: 02-22-2022 End: 09-69-6678dubasagvhgGC GREGORY S GRANTFacility:X0Apgom: 01-25-2022 End: 00-96-8798kgeliaweqjNG GREGORY S GRANTFacility:C4Dbrse: 17-90-6825Wmvniv outpatient visit 25 minutesJarett Gudino Work Phone: [phone]-Afmaa [facility] 250 DO Work Phone: Start: 11-21-2021 End: 57-74-6861tlynmecdhgFG GREGORY S GRANTFacility:M3Ltjwd: 09-26-2021 End: 90-68-3235nbujierjrwKQ GREGORY S GRANTFacility:V4Swwcy: 09-16-2021 End: 29-02-0443sxddwvnedgCpcrvtx S GRANTFacility:FTMCStart: 09-09-2021 End: 68-81-7627ejmystinzpLnohxcz S GRANTFacility:FM MilanStart: 09-09-2021 End: 57-16-9148Tjeeapw encounter procedureJarett GUDINO [phone]-QulcdSelect [facility] Start: 09-09-2021 End: 98-22-4776Dcsl adult monitoring check doneJarett GUDINO [phone]-JuzwrSelect [facility] Specialty [facility] Start: 82-02-0711Idllij outpatient visit 25 minutes Jarett Gudino Work Phone: mp640-9653QK-Bjwfg [facility] 250 DO Work Phone: Start: 44-74-0636Qkcqrxz encounter procedureJarett Gudino Work Phone: mp051-2093NR-Jwrrg [facility] 250 DO Work Phone: Start: 44-96-3471Wxqrnkk encounter procedureJarett Gudino Work Phone: mp095-6116JL-Hlsny [facility] [address] [place] Work Phone: Start: 70-56-4176Su RenewalJarett Gudino Work Phone: mp815-5317SL-Lqlhk [facility] [address] [place] Work Phone: Start: 04-10-5369Myzeyqb encounterKO ERICKSON Facility:[id number]: 02-20-2017 End: 96-87-0954EyhgawbdaqMBTJNUU PHYSICIANFacility:[facility] Procedures DateProcedureProcedure DetailPerforming ClinicianStart: 11-70-1194Uywggtlhg colonoscopyJared Leong MD Work Phone: Start: 86-67-0840JQ of lungsJared Leong MD Work Phone: Start: 79-49-3981Tyb routine ecg w/least 12 lds w/i&r Ko Erickson MD Work Phone: Start: 07-08-9956Alsqx chest X-rayJared Leong MD Work Phone: Start: 67-18-3257Hho routine ecg w/least 12 lds w/i&r Ko Erickson MD Work Phone: Start: 76-29-1756CL of chest without contrastMD Jared Leong Work Phone: Start: 00-52-6602YPP screeningDR JARETT GUDINOComment on above:Performed By: #### PSASC #### [facility] [address] [address] [address] Nabil Pacheco ablation of arrhythmogenic focusJarett Finney Terese Work Phone: CholecystectomyGregory S Terese Work Phone: ColonoscopyJarett S Terese Work Phone: Plan of Treatment DateCare ActivityDetailAuthorStart: 04-01-2025 End: 99-27-7792Atldmpg encounter fpzjroxfy44/10/2025 3:10 PM EST Office Visit [address] [place] [address] Ko Erickson MD [address] [facility] [address] [place] [address] [facility] CenterStart: 57-42-5139Mnpmmnmlr vaccinationInfluenza Vaccine (Season Ended)[facility]: 09-11-2024 [facility]: 08-01-2024 End: 05-77-1383Hcdbwsw encounter cemqyjian03/11/2025 1:30 PM EDT Office Visit [address] [place] [phone] Ko Erickson MD [address] [facility] [address] [place] [address] [facility] CenterStart: 23-35-1518Qobtxjk referralMckitrick Hospital Work Phone: Start: 01-04-2024 End: 37-92-8891Fjiou metabolic 2000 panel - Serum or PlasmaBasic Metabolic Panel Lab Routine Paroxysmal atrial fibrillation (Multi) High risk medication use St age 3a chronic kidney disease (Multi) Expected: 01/04/2024 (Approximate), Expires: 01/03/2025[facility] Service Area Work Phone: Comment on above:Expected: 01/04/2024 (Approximate), Expires: 01/03/2025Start: 01-04-2024 End: 53-77-9883QNC panel - Blood by Automated countCBC Lab Routine Paroxysmal atrial fibrillation (Multi) High risk medication use Expected: 01/04/2024 (Approximate), Expires: 01/03/2025UnOhio[facility] Work Phone: Comment on above:Expected: 01/04/2024 (Approximate), Expires: 01/03/2025Start: 03-85-7574GRSQU-19 Vaccine ()COVID- 19 Vaccine ()[facility]: 98-05-1274GYIXF-19 Vaccine ()COVID-19 Vaccine ()[facility]: 82-99-5280Rsiljfjyo vaccination Influenza Vaccine (#1)[facility]: 30-93-9555JNU, Provider: Ko Erickson, Status: Pen, Time: 10:40 AMFUV, Provider: Ko Erickson, Status: Pen, Time: 10:40 AMMPTracy Medical Center 250 DO Work Phone: Start: 20-01-6154TZC, Provider: Ko Erickson, Status: Pen, Time: 9:50 AMFUV, Provider: Ko Erickson, Status: Pen, Time: 9:50 REGG-Uwdqcvueuf-Ffwebtkw 250 DO Work Phone: Start: 22-80-3169ohahvtpkkmKlreqwwskkKcsrwzef:FM [place] Start: 15-30-0345SVD, Provider: Ko Erickson, Status: Pen, Time: 9:10 AMFUV, Provider: Ko Erickson, Status: Pen, Time: 9:10 AMMPTracy Medical Center 250 DO Work Phone: Start: 17-57-8652BTT, Provider: Ko Erickson, Status: Pen, Time: 9:10 AMFUV, Provider: Ko Erickson, Status: Pen, Time: 9:10 AMMP-[place] [facility] 250 DO Work Phone: Start: 16-92-2442FKW High Risk: (Elderly (60+) or Population) (1 - Risk 60-74 years 1-dose series)RSV High Risk: (Elderly (60+) or Population) (1 - Risk 60-74 years 1-dose series)[facility]: 73-55-7614WLG patients and/or patients aged 60+ years (1 - 1-dose 60+ series)RSV patients and/or patients aged 60+ years (1 - 1-dose 60+ series)[facility]: 06-29-7987UIN, Provider: Ko Erickson, Status: Pen, Time: 3:00 PMFUV, Provider: Ko Erickson, Status: Pen, Time: 3:00 PMMPMayo Clinic Health System-[place] [address] [place] Work Phone: Start: 96-97-5660QTUTS CARLITOS, Provider: YESSICA PETER LIQUIFIED NATURAL GAS TECHNICIAN 1,[id number], Status: Pen, Time: 10:30 AMEVENT CARLITOS, Provider: YESSICA PETER [employer]IF[employer] NATURAL GAS TECHNICIAN 1,[id number], Status: Pen, Time: 10:30 AMSt[facility]-[place] [address] [place] Work Phone: Start: 07-61-6387Iyoawl Vaccines (1 of 2)Zoster Vaccines (1 of 2)[facility]Start: 09-11-7637Ifbwyramyeum vaccinationPneumococcal Vaccine (2 of 2 - PCV)[facility] Start: 54-60-6737Giuhqcqiqixs Vaccine: Pediatrics (0 to 5 Years) and At-Risk Patients (6 to 64 Years) (2 of 2 - PCV)Pneumococcal Vaccine: Pediatrics (0 to 5 Years) and At-Risk Patients (6 to 64 Years) (2 of 2 - PCV)[facility]: 82-26-1756PUgG/Tdap/Td Vaccines (1 - Tdap)DTaP/Tdap/Td Vaccines (1 - Tdap)[facility]: 84-14-5677Hycac screening for proteinCKD: Urine Protein ScreeningSheltering Arms Hospital: 18-18-5703Plqakxdi mellitus screeningDiabetes Screening [facility]: 29-94-5732Zgzcpkxow C screeningHepatitis C ScreeningSheltering Arms Hospital: 22-77-7184NOY Vaccines (1 of 1 - Standard series)MMR Vaccines (1 of 1 - Standard series)[facility]: 10-28-7290VJR screeningHIV ScreeningSheltering Arms Hospital: [id number] panelLipid PanelUnMain Campus Medical Center: 62-21-5651Hejsxqxcl for malignant neoplasm of colonUnMain Campus Medical Center: 82-58-7675Jgnjsj Adult PhysicalYearly Adult PhysicalUnOhioHealth Hardin Memorial HospitalCT Sinuses WO contrastBlanchard Valley Health SystemCT Unspecified body [facility] CenterMR Unspecified body [facility] CenterPatient EducationAtrium Health Hemorrhoids Discharge Instructions Know your [facility] Colon Polypectomy Discharge InstructionsBl[facility] Work Phone: [facility] referralBluffton [facility] Work Phone: [facility] Immunizations Immunization DateImmunizationNotesCare [id number] virus vaccine, unspecified formulationGregory S Terese Work Phone: [phone]-BusosFair[facility] [address] Work Phone: [phone]ootvxh virus vaccine, unspecified formulationGregory TERESE [id number]-DwjtwLuther[facility] [place] [id number] polysaccharide vaccine, 23 valentGregory S Terese Work Phone: [phone]-VwtrnFairview Range Medical Center 250 DO Work Phone: [phone]) 356-961201748923-96-2813ygdrdwxriitj polysaccharide vaccine, 23 valentGregory S Terese Work Phone: [phone]-Nvbsc [facility] 250 DO Work Phone: influenza virus vaccine, unspecified formulation Jarett Gudino Work Phone: [phone]-Zmwjy [place] [facility] 250 DO Work Phone: Comment on above:[phone]: Highlighted row has not occurred!28-92-6869llyiycbqr virus vaccine, unspecified formulation Jarett GUDINO [phone]-SmngvSelect [facility] Payers DatePayer CategoryPayerPolicy [id number] of Defense ( and others) HUMANA [id number] 2023-Present [address] [place] [address].2.840.189182.1.13.647.2.7.3.432208.315 70-69-8511RYINUOJ ()HUMANA [address].2.840.425527.1.13.647.2.7.9.636750.100746.04622-41-3622Hisxdzy [id number] 2.0.1.449029.3.57[id number] 2.0.1.759421.3.57[id number] 2.0.1.542739.3.57[id number] 2.0.1.363347.3.57[id number] 2.16.840.1.455993.3.57[id number] 2.16.840.1.863267.3.57[id number] 2.16.840.1.440996.3.579.[id number] 2.16.840.1.485108.3.57[id number] 2.16.840.1.467757.3.579.2.90573-57-1901Bmkiyzv9005630 2.16.840.1.628229.3.579.[id number] 2.16.840.1.855302.3.579.2.84647-67-7024Mvrhksn1490932 2.16.840.1.578604.3.579.2.33728-10-2356Etvqdzj9982704 2.16.840.1.042163.3.579.2.25953-82-0890Clhavio7816851 2.16.840.1.861361.3.579.2.55444-71-5346Ajgjzyt9959114 2.16.840.1.805329.3.579.2.[id number] 2.16.840.1.217308.3.579.2.[id number] 2.16.840.1.920171.3.579.[id number] 2.16.840.1.526987.3.57[id number] 2.16.840.1.998583.3.579.2.953439-54-8609Mckxjodanb of Defense ( and others)[id number] 2.16.840.1.240082.3.579.2.531Unknown [id number] 2.840.1.297[id number] 2.840.1.945742.3.579.2.531 Social History DateTypeDetailFacilityStart: 01-04-2024 End: 11-89-8321Lpuvk caffeine consumptionDaily caffeine consumptionMadison Hospital 250 DO Work Phone: Comment on above:1-2 mixed drinks a month;1 ppd;1-2 mixed drinks a week;1 decaff coffee;Start: 22-11-4041Lcyybhd smoking statusHeavy tobacco smoker (finding)[facility] Tobacco smoking statusNeverSelect Medical Specialty [facility] Start: 01-04-2024 End: 11-53-5149Oop Assigned At [facility] Start: 66-34-6378Qjt [facility] At [facility]: 01-04-2024 End: 74-81-1529Bwecazt smoking status NHISSmokes tobacco dailyUnOhioHealth Hardin Memorial HospitalHistory of tobacco useCigarette SmokerUnOhioHealth Hardin Memorial Hospital Work Phone: Start: 82-41-6696Ctweqgv use and exposureSmokeless tobacco non-userUnOhioHealth Hardin Memorial Hospital Work Phone: Start: 01-04-2024 End: 03-73-8002Pycpxhvdu beverage intakeCurrent drinker of alcohol (finding) [facility] Work Phone: Start: 90-77-3214Ynidtov CommentoccasionallyBarnesville Hospital Work Phone: Start: 52-23-5973Pyg assigned at birthNot on file [facility] Work Phone: Start: 12-25-2023 End: 75-38-3168Vzaxndhw to SARS-CoV-2 (event)Not sureBarnesville HospitalStart: 08-14-2023 End: 06-96-8865Pueqdic smoking status NHISSmoker (finding)[facility] Shawtart: 08-07-2024 End: 75-63-5121LuwIwhp (finding)[facility] Goals DatePatient GoalDesired Activity/State Clinical Notes 08-25-2021 to 12-17-2024 Note Date & TfvmYxyyEqqdphtp96-13-8989 Evaluation note* Diagnosis Onset Date Resolution Status Admit Date Abnormal CT of brain acuteAugust 2024 11:12amDiplopiaacuteAugust 2024 11:12amHeadache acuteAugust 2024 11:12amLung noduleacuteAugust 2024 11:12amAtrial fibrillationacuteOctober 2024 1:29pmDiplopiaacuteOctober 2024 1:29pm HypersomniaacuteOctober 2024 1:29pmTrigeminal neuralgiaacuteOctober 2024 1:29pm [facility] Work Phone: 1(681) 569-373207-16-2025 Evaluation note* Diagnosis Onset Date Resolution Status Admit Date Chronic maxillary sinusitis acuteJuly 2024 1:03pmSeasonal affective disorder in remissionacuteJuly 2024 1:03pm [facility] Work Phone: 1(447) 292-876305-22-2025 History and physical [place] [id number] Gastroenterology H&P Signed Patient: Abhinav Lezama MR#: [id number] : 1960 Acct:[id number] Age/Sex: 64 / M Adm Date: Loc: Room: Type: [facility] Attending Dr: Chas Dean MD [...] Dean MD 09/11/2456 Signed By: 09/11/24 0856 [facility]05-22-2025 Procedure noteDavid [place] [id number] Colonoscopy Procedure Report Signed Patient: Abhinav Lezama MR#: [id number] : 1960 Acct:[id number] Age/Sex: 64 / M Adm Date: Loc: Room: Type: [facility] Attending Dr: Chas Dean MD [...] was slowly withdrawnwith the findings as below. [place] bowel prep score was good. Findings: Cecum: [...] MD 09/11/24 0857 Signed By: 09/11/24 0910 [facility]04-25-2025 Evaluation note* Diagnosis Onset Date Resolution Status Admit Date Colon cancer screening acuteApril 2024 10:00amGERD without esophagitisacuteApril 2024 10:00amPost-cholecystectomy syndromeacuteApril 25th, 2025 10:00amSecondary bile acid malabsorptionacuteApril 2024 10:00amLung noduleacuteApril 2024 2:18pmTobacco use disorderacuteApril 2024 2:18pm [facility] Work Phone: [phone] 115-360104-25-2025 Evaluation note* Diagnosis Onset Date Resolution Status Admit Date Colon cancer screening acuteApril 2024 10:00amGERD without esophagitisacuteApril 2024 10:00amPost-cholecystectomy syndromeacuteApril 2024 10:00amSecondary bile acid malabsorptionacuteApril 2024 10:00amLung noduleacuteApril 2024 2:18pmTobacco use disorderacuteApril 2024 2:18pmChronic maxillary sinusitisacuteJuly 2024 1:03pm [facility] Work Phone: 1(740) 372-324704-16-2025 Radiology Diagnostic study [facility] [place] [address] CT Scan Report Signed Patient: Abhinav Lezama MR#: [id number] : 1960 Acct:[id number] Age/Sex: 64 / M ADM Date: 5 Loc: [facility] Room: Type: [facility] Attending Dr: Kelechi Martin MD Copies to: [...] Lockwood Jr., D.OSwapna08/06/2024 12:58 PM Dictation Location: [place] [address] Transcribed By: [facility] 08/06/24 1258 Dictated By: Yannick Lockwood Jr, DO 08/06/24 1255 Signed By: 08/06/24 1258 [facility]04-11-2025 History of Present illness Narrative * Ko [...] currently on pravastatin, recent lab data from [facility] were requested. Review of Systems Constitutional: [...] by mouth. As directed as directed by [facility], Disp: , Rfl: Assessment/Plan 1. Paroxysmal [...] exam, discussion and plan. documented in this encounterBarnesville Hospital Work Phone: 1(361) 215-784504-11-2025 Instructions* Patient Instructions* Nicolasa Bradshaw RN - [...] instructions on exercise. documented in this [facility] Work Phone: 1(815) 801-412602-22-2025 Evaluation note* Diagnosis Onset Date Resolution Status Admit Date Dizziness acuteFebruary 2024 9:03amShortness of breathacuteFebruary 2024 9:03amViral URI with coughacuteFebruary 2024 9:03amColon cancer screening acuteFebruary 2024 10:45amPost-cholecystectomy syndromeacuteFebruary 2024 10:45amShortness of breathacuteFebruary 2024 10:45amTobacco use disorderacuteFebruary 2024 10:45am [facility] Work Phone: 1(643) 137-431109-13-2024 History of Present illness Narrative* Ko Erickson [...] by mouth. As directed as directed by [facility], Disp: , Rfl: Assessment/Plan 1. Paroxysmal [...] exam, discussion and plan. documented in this encounterBarnesville Hospital Work Phone: 1(739) 434-640709-13-2024 Instructions* Patient Instructions* Ladonna Zendejas LPN - [...] through Care Everywhere. * Heart Healthy Diet (Polish) documented in this encounterBarnesville Hospital Work Phone: 1(218) 108-336710-24-2023 Evaluation note* Encounter Date Diagnosis Assessment Notes Treatment Notes Treatment Clinical Notes Jan, Lung nodule (ICD-10 - R91.1) Jan,Tobacco use disorder (ICD-10 - F17.200) [employer] [facility] Other 10-20-2023 Evaluation note* Encounter Date Diagnosis Assessment Notes Treatment Notes Treatment Clinical Notes Jan, Benign paroxysmal po sitional vertigo, unspecified laterality (ICD- 10 - H81.10) Order printed for PT. Pt will call and set up appt. Jan,Mixed hyperlipidemia (ICD-10 - E78.2)Recheck labs. Pt had adverse side effects to crestor. [facility] Other 07-18-2023 Evaluation note* Encounter Date Diagnosis Assessment Notes Treatment Notes Treatment Clinical Notes Oct, Lung nodule (ICD-10 - R91.1) Oct,Nicotine dependence, cigarettes, uncomplicated (ICD-10 - F17.210) [facility] Other 05-15-2023 Evaluation note* Encounter Date Diagnosis [...] Dr. Finley - will set up with [facility] August,Nicotine dependence, cigarettes, uncomplicated (ICD-10 - F17.210) agrees to LDCT and chantix. discussed side effects of chantix. August,Screening for colon cancer (ICD-10 - Z12.11)agrees to cologuard August,ERD without esophagitis (ICD-10 - K21.9)requests refill of Aciphex. [facility] Other 05-05-2022 Hospital Discharge instructions Follow Up Care 08/25/2021 11:29:08 With:Jarett GUDINO DO, FAM Address: [address] [place] [address]- When:Within 1 Year(s) [facility] Evaluation + Plan note Future Appointments Appointment Date:09/16/2021 04:00:00 PM Scheduled [facility]: [facility] () Appointment Date:09/11/2022 10:00:00 AM Scheduled Provider:Jarett GUDINO DO Location:[facility] Appointment Type: Open Future Scheduled Tests Laboratory* PSA Screen, Total 08/29/21 * CBC w/ Auto Diff 08/29/21 * Comprehensive Metabolic Panel 08/29/21 * Lipid Panel 08/29/21 Radiology* MRI Brain w/o Contrast 09/16/21 [facility] Evaluation noteNo [employer] Other Evaluation noteNo assessment information available [facility] Work Phone: Evaluation note* Diagnosis Paroxysmal atrial fibrillation (Multi) Atrial fibrillation PVC (premature ventricular contraction) Other premature beats TIA (transient ischemic attack) Unspecified transient cerebral ischemia Mixed hyperlipidemia High risk medication use Stage 3a chronic kidney disease (Multi) BMI 30.0-30.9,adult Current every day smoker documented in this encounter [facility] Work Phone: Evaluation note* Diagnosis Obesity, Class I, BMI 30-34.9- Primary Paroxysmal atrial fibrillation (Multi) Atrial fibrillation High risk medication use High triglycerides Unspecified disorder of lipoid metabolism Palpitations Mixed hyperlipidemia PVC (premature ventricular contraction) Other premature beats BMI 30.0-30.9,adult Current every day smoker documented in this encounter [facility] Work Phone: History and physical note Author Chas Dean [facility] SystemNote Date/TimeMay 2024 9:50[place] [address] Gastroenterology H&P Signed Patient: Abhinav Lezama MR#: [id number] : 1960 Acct:[id number] Age/Sex: 64 / M Adm Date: 5 Loc: Room: Type: [facility] Attending Dr: Chas Dean MD [...] <Electronically signed by Chas Dean MD> 09/11/24855 [facility] Work Phone: History general Narrative - Reported* Type Description Date Medical History Afib Medical HistoryIBSMedical HistoryProtruding disc C4-V2Cydnjumm History Lmhcvsdqnzirsyv5988Xbxqizuk HistoryAblation on heartSurgical HistoryColonoscopy - Dr. Estes2006 [employer] [facility] Other Hospital course Narrative No data available for this section [facility] [place] Reason for referral (narrative)No reason for referral information availableOhiohealth Work Phone: Reason for visit Narrative* Indication: [...] Ko Erickson MD * Enrollment sent to: [employer] * Monitor number [id number] applied. * Holter monitor printed and placed on Dr. Higinio Tyson MD desk to dictate. [facility] 250 DO Work Phone: Summary Purpose Family [...] He has active lifestyle and is in intermediate at the present time. His examination is [...] He has active lifestyle and is in intermediate at the present time. His examination is [...] in 6 months. * Ko Erickson MD, [facility] * ABHINAV LEZAMA is being seen for a month follow-up of. * Patient is in the office for follow-up for the problems noted below. He retired last year and is trying to quit smoking but has not succeeded yet. He denies any palpitations since he started taking magnesium lnsn-tmj-eellmsg. 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 February 09, 2025 1:29pm [...] ECG 12 Lead Ko Erickson MD [address] [facility] [address], [address] [address] Referral IDStatusReasonStart DateExpiration DateVisits RequestedVisits [id number]/13/20249/13/071638VzzcezgznXqtmrsjnf / Procedures Referred By ContactReferred To ContactCardiology Diagnoses Paroxysmal atrial fibrillation (Multi) Procedures Follow Up In Cardiology Ko Erickson MD [address] [facility], [address] [place] [phone] Ko Erickson MD [address] [facility], [address] [place] [phone] Referral IDStatusReasonStart DateExpiration DateVisits RequestedVisits [id number]/13/20249/13/202511 Additional Source Comments (unrecognized sect ion and content) No Status Records FoundNo Status Records FoundNo Status Records FoundNo Status Records FoundNo Status Records FoundNo Status Records FoundNo Status Records FoundNo Status Records FoundNo Status Records Found INFORMATION SOURCE (unrecogn ized section and content) DATE CREATED AUTHOR 10/16/2017 [facility] DATE CREATED AUTHOR AUTHOR'S ORGANIZ ATION 01/30/2018 [facility] DATE CREATED AUTHOR AUTHOR'S ORGANIZ ATION 02/14/2019 [facility] DATE CREATED AUTHOR AUTHOR'S ORGANIZ ATION 07/31/2022 [facility] DATE CREATED AUTHOR AUTHOR'S ORGANIZ ATION 09/05/2022 [facility] DATE CREATED AUTHOR AUTHOR'S ORGANIZ ATION 12/13/2022 [facility] DATE CREATED AUTHOR AUTHOR'S ORGANIZ ATION 12/13/2022 [facility] DATE CREATED AUTHOR AUTHOR'S ORGANIZ ATION 08/07/2024 [facility] DATE CREATED AUTHOR AUTHOR'S ORGANIZ ATION 09/21/2024 [facility] Reason for Visit (unrecogniz ed section and content) ReasonCommentsFollow-bi7lgZxslqsaglQrngmrodq / ProceduresReferred By Contact Referred To ContactCardiology Diagnoses Paroxysmal atrial fibrillation (Multi) Procedures Follow Up In Cardiology Ko Erickson MD [address] [place] [address], [place] [phone] Ko Erickson MD [address] [place] [address], [place] [phone] Referral IDStatusReasonStart DateExpiration DateVisits RequestedVisits [id number]/27/20242/739800DlyvkqGdlgpzsfAmlewc-ohUjbtvar here for 6 month follow up, c/o occasional irregular heartbeat with dizziness and fatigue, will last approximately a day.SpecialtyDiagnoses / Procedures Referred By ContactReferred To ContactCardiology Diagnoses Paroxysmal atrial fibrillation (Multi) Procedures Follow Up In Cardiology Ko Erickson MD [address] [place] [address], [place] [phone] Phone: tel: fax: Ko Erickson MD [address] [place] [address], [place] [phone] Phone: tel: fax: Referral IDStatusReasonStart DateExpiration DateVisits RequestedVisits [id number]/13/20249/ Care Teams (unrecognized sec tion and content) [...] DateEnd Date Jared Leong MD [facility] - [facility]23 Ko Erickson MD [address] [facility], [address] [place] [address] Consulting PhysicianCardiology06/19/23 Team Status: Active Member Role [...] BE BASED ON THE PRIMARY CLINICAL RECORDS. [employer] [facility]. provides no warranty or guarantee of the accuracy or completeness of information in this document.
--- OUTSIDE RECORDS SUMMARY | 2025-02-17 19:57 | XMS_ITS | Clinical Summary ---
Author Organization [facility] Address [address] [place] [address] Phone Care Team Providers Care Cheese Pancake Roller Name Role Phone Regi Chapman MD Primary Care Provider [phone] Ko Gamble MD Unavailable Allergies Active AllergyReactionsCriticalityNoted DateCommentsRosuvastatinMyalgia 06/19/2023abigatran YjgibidwdWqqlqqoc82/12/2500PlaepopgyiaNwfyjml68/12/2024 Medications MedicationSigDispense QuantityRefillsLast FilledStart DateEnd DateStatus RABEprazole (Aciphex) EC tablet Take 1 tablet (20 mg) by mouth once daily.05/21/2021ctive warfarin (Coumadin) 5 mg tablet Take 1 tablet (5 mg) by mouth. As directed as [facility]Active pravastatin (Pravachol) 20 mg tablet Indications:High triglyceridesTake 1 tablet (20 mg) by mouth once daily in the evening. 90 tablet 5Active bisoprolol (Zebeta) 5 mg tablet Indications:PalpitationsTAKE 1 TABLET DAILY (STOP BYSTOLIC NEW START) 90 tablet ctive Multaq 400 mg tablet Indications:Paroxysmal atrial fibrillation (Multi)TAKE 1 TABLET TWICE A DAY WITH MEALS 180 tablet 5Active Active Problems ProblemNoted DateDiagnosed DateMixed kftpjwgmtbbheh93/13/2024High risk medication use01/04/2024MI 30.0-30.9,adult01/04/2024urrent every day smoker 05/04/2023ell palsy04/09/2023High tsqprlfymdftu42/18/3150Ahwoukpfrxvj12/18/2023 Paroxysmal atrial zushnhrxrnlw89/18/2023PVC (premature ventricular contraction) 04/09/2023Stage 3a chronic kidney rtigtam1904/09/2023TIA (transient ischemic attack)04/09/2023Vision idjyzvb8004/09/2023 Immunizations ImmunizationAdministration DatesNext DueInfluenza, Imxhucxswtm01/23/2013 Pneumococcal polysaccharide vaccine, 23-valent, age 2 years and older (PNEUMOVAX 23)04/23/2008,04/23/2003 Social History Tobacco UseTypesPacks/DayYears UsedDateSmoking Tobacco: Every DayCigarettes Smokeless Tobacco: Never Tobacco Cessation:Ready to Q uit: No; Counseling Given: Yes Alcohol UseStandard Drinks/WeekCommentsYes0 (1 standard drink = 0.6 oz pure alcohol)occasionallySex and Gender InformationValueDate RecordedSex Assigned at BirthNot on fileLegal NnrZsil12/25/2022 9:57 AM ESTGender IdentityNot on file Sexual OrientationNot on file Last Filed Vital Signs Vital SignReadingTime TakenCommentsBlood Amhkdmaj665/7004 1:19 PM EDT Lhdfc3589 1:19 PM EDTTemperature--Respiratory Rate--Oxygen Saturation-- Inhaled Oxygen Concentration--Cseici319 kg (221 lb 9.6 oz)08/01/2024 1:19 PM EDT Ksxvxb532.3 cm (5' 11 )08/01/2024 1:19 PM EDTBody Mass Index30.9104 1:19 PM EDT Plan of Treatment DateTypeDepartmentCare Team (Latest Contact Info)Ubrrxnneukl08/04/2025 2:00 PM ESTOffice Visit [facility] [facility] [address] [place] [address] Ko Gamble MD [address] [facility] [address], [address] [place] [address] Health MaintenanceDue DateLast DoneCommentsCT Rsfmfpoznzwg78/14/1962Colonoscopy 1961olorectal Cancer Ogzwbsopr29/14/1962FIT-DNA (Cologuard)1960FIT 1960HIV Pszgqwuwi02/14/1962Lipid Panel1960 2673Yugipekoeawsf04/14/1962MMR Vaccines (1 of 1 - Standard series)1962Diabetes Citrjspqh30/14/1980 Hepatitis C Zfktzzrrz38/14/1980CKD: Urine Protein Asussdwyp63/14/1981 DTaP/Tdap/Td Vaccines (1 - Tdap)07/05/1983Pneumococcal Vaccine (2 of 2 - PCV) 04/23//04/2008, 04/23/2003PSA Prostate Cancer Xpqsadvnb86/14/2012Zoster Vaccines (1 of 2)07/05/2011Yearly Adult Vihcogls45/Influenza Vaccine (#1)/04/2013, 02/12/2013COVID-19 Vaccine ( - season)2024RSV [...] - GeneralFamily Medicine06/19/23 Ko Gamble MD [address] [facility], [address] [place] [address] Consulting PhysicianCardiology06/19/23
--- OUTSIDE RECORDS SUMMARY | 2025-02-17 19:57 | XMS_ITS | Clinical Summary ---
Author Organization [facility] Address [address] [place] [address] Care Team Providers Care Registered Nurses Name Role Phone Unavailable Primary Care Provider Unavailabl e Social History Tobacco UseTypesPacks/DayYears UsedDateSmoking Tobacco: Never AssessedSex and Gender InformationValueDate RecordedSex Assigned at BirthNot on fileLegal Sex Male07/05/2022 6:55 PM EDTGender IdentityNot on fileSexual OrientationNot on file Last Filed Vital Signs Vital SignReadingTime TakenCommentsBlood Tvzfpcel571/6704/17/2018 12:00 PM EST Pulse--Temperature--Respiratory Rate--Oxygen Saturation--Inhaled Oxygen Concentration--Lrdsfk979 kg (235 lb)04/17/2018 12:00 PM XRCWbwjfq113.1 cm (5' 10.5 )04/17/2018 12:00 PM ESTBody Mass Index33.24106/18/2017 12:00 PM EST Plan of Treatment Not on file
== END 2025-02-17 19:55 | disposition home or self-care (01) ==
PROVIDERS: PCP Psychiatry & Neurology Neurology; Visit Provider Psychiatry & Neurology Neurology
DX: G47.33 Obstructive sleep apnea (adult) (pediatric) (principal); G47.11 Idiopathic hypersomnia with long sleep time
CPT/HCPCS: 95810

== ENCOUNTER 2025-04-08 19:48 | Outpatient (OUT) | payer OTHER, SELFPAY ==
--- OUTSIDE RECORDS SUMMARY | 2025-04-08 19:51 | XMS_ITS | Encounter Summary ---
Author Organization [facility] Address [address] [place] [address] Phone Care Team Providers Care Saw Runner Name Role Phone Regi Chapman MD Primary Care Provider [phone] Ko Gamble MD Unavailable [phone] Reason for Visit * ReasonCommentsMed Refill Encounter Details DateTypeDepartmentCare Team (Latest Contact Info)Skvkxhplxfb53/16/2025Refill at [facility] [address] [place] [address] Ko Gamble MD [address] [place] [address] [address], [address] [address] Palpitations Social History Tobacco UseTypesPacks/DayYears UsedDateSmoking Tobacco: Every DayCigarettes Smokeless Tobacco: NeverAlcohol UseStandard Drinks/WeekCommentsYes0 (1 standard drink = 0.6 oz pure alcohol)occasionallySex and Gender InformationValueDate RecordedSex Assigned at BirthNot on fileLegal PkaDsfi87/25/2022 9:57 AM EST Gender IdentityNot on fileSexual OrientationNot on filedocumented as of this encounter Plan of Treatment DateTypeDepartmentCare Team (Latest Contact Info)Mjpzpqkraeo38/31/2025 2:40 PM ESTOffice Visit at [facility] [address] [place] [address] Ko Gamble MD [address] [place] [address] [address], [address] [address] documented as of this encounter Visit Diagnoses Diagnosis Palpitations documented in this encounter Additional Health Concerns AssessmentNoted TimeA fall risk assessment has been completed for the patient 01/04/2024 12:51 PM EDTdocumented as of this encounter Care Teams Team MemberRelationshipSpecialtyStart DateEnd Date Regi Chapman MD PCP - GeneralFamily Medicine06/19/23 Ko Gamble MD [address] [facility], [place] [phone] Consulting PhysicianCardiology06/19/23documented as of this encounter
--- OUTSIDE RECORDS SUMMARY | 2025-04-08 19:51 | XMS_ITS | Encounter Summary ---
Author Organization [facility] Address [address] [place] [address] Phone Care Team Providers Care Towboat Pilot Name Role Phone Regi Chapman MD Primary Care Provider [phone] Ko Gamble MD Unavailable [phone] Reason for Visit * ReasonCommentsMed Refill Encounter Details DateTypeDepartmentCare Team (Latest Contact Info)Thsikkgrnha06/12/2025Ref[place] [address] [place] [address] Ko Gamble MD [address] [facility], [address] [address] High triglycerides Social History Tobacco UseTypesPacks/DayYears UsedDateSmoking Tobacco: Every DayCigarettes Smokeless Tobacco: NeverAlcohol UseStandard Drinks/WeekCommentsYes0 (1 standard drink = 0.6 oz pure alcohol)occasionallySex and Gender InformationValueDate RecordedSex Assigned at BirthNot on fileLegal VklEppg67/25/2022 9:57 AM EST Gender IdentityNot on fileSexual OrientationNot on filedocumented as of this encounter Plan of Treatment DateTypeDepartmentCare Team (Latest Contact Info)Nkapqrrkhop12/31/2025 2:40 PM ESTOffice Visit [facility] [address] [facility] [address] [place] [address] Ko Gamble MD [address]03 [facility] [address], [address] [address] documented as of this encounter Visit Diagnoses Diagnosis High triglycerides Unspecified disorder of lipoid metabolism documented in this encounter Additional Health Concerns AssessmentNoted TimeA fall risk assessment has been completed for the patient 01/04/2024 12:51 PM EDTdocumented as of this encounter Care Teams Team MemberRelationshipSpecialtyStart DateEnd Date Regi Chapman MD PCP - GeneralFamily Medicine06/19/23 Ko Gamble MD 703 [facility] 2, [facility] [address] [place] [address] Consulting PhysicianCardiology06/19/23documented as of this encounter
--- OUTSIDE RECORDS SUMMARY | 2025-04-08 19:51 | XMS_ITS | Clinical Summary ---
Author Organization [facility] Address [address] [place] [address] Phone Care Team Providers Care Research Asst Name Role Phone Regi Chapman MD Primary Care Provider [phone] Ko Gamble MD Unavailable [phone] Allergies Active AllergyReactionsCriticalityNoted DateCommentsRosuvastatinMyalgia 4Dabigatran ZrhidvubjGmasqwic04/12/8245EmwvroohduqFintmkh72/12/2024 Medications MedicationSigDispense QuantityRefillsLast FilledStart DateEnd DateStatus RABEprazole (Aciphex) EC tablet Take 1 tablet (20 mg) by mouth once daily.05/21/2021ctive warfarin (Coumadin) 5 mg tablet Take 1 tablet (5 mg) by mouth. As directed as [facility] bis[facility]rolol (Zebeta) 5 mg tablet Indications:PalpitationsTAKE 1 TABLET DAILY (STOP BYSTOLIC NEW START) 90 tablet 4Active Multaq 400 mg tablet Indications:Paroxysmal atrial fibrillation (Multi)TAKE 1 TABLET TWICE A DAY WITH MEALS 180 tablet 5Active pravastatin (Pravachol) 20 mg tablet Indications:High triglyceridesTake 1 tablet (20 mg) by mouth once daily in the evening. 90 tablet 5Active pravastatin (Pravachol) 20 mg tablet Indications:High triglyceridesTake 1 tablet (20 mg) by mouth once daily in the evening. 90 tablet Discontinued Active Problems ProblemNoted DateDiagnosed DateMixed ifjrwqeiqfjmgx45/13/2024High risk medication use01/04/2024MI 30.0-30.9,adult01/04/2024urrent every day smoker 05/04/2023ell palsy04/09/2023High wxjeobqihqfej18/18/2478Bvqagabiubym41/18/2023 Paroxysmal atrial iyplvysmakga05/18/2023VC (premature ventricular contraction) 04/09/2023Stage 3a chronic kidney jlidydg9504/09/2023TIA (transient ischemic attack)04/09/2023Vision caqmwvc2804/09/2023 Encounters DateTypeDepartmentCare LnruFbortjsflpu21/16/[facility] 703 [facility] [address] [place] [address] Ko Gamble MD Yeruffpkkykp53/12/[address] [place] [address] Ko Gamble MD High triglyceridesfrom Last 3 Months Immunizations ImmunizationAdministration DatesNext DueInfluenza, Guheqivfzbk80/23/2013 Pneumococcal polysaccharide vaccine, 23-valent, age 2 years and older (PNEUMOVAX 23)04/23/2008,04/23/2003 Social History Tobacco UseTypesPacks/DayYears UsedDateSmoking Tobacco: Every DayCigarettes Smokeless Tobacco: Never Tobacco Cessation:Ready to Q uit: No; Counseling Given: Yes Alcohol UseStandard Drinks/WeekCommentsYes0 (1 standard drink = 0.6 oz pure alcohol)occasionallySex and Gender InformationValueDate RecordedSex Assigned at BirthNot on fileLegal GcxEefe47/25/2022 9:57 AM ESTGender IdentityNot on file Sexual OrientationNot on file Last Filed Vital Signs Vital SignReadingTime TakenCommentsBlood Zixeyscn315/7004 1:19 PM EDT Krwbx4041 1:19 PM EDTTemperature--Respiratory Rate--Oxygen Saturation-- Inhaled Oxygen Concentration--Mosszd456 kg (221 lb 9.6 oz)08/01/2024 1:19 PM EDT Tizzmn332.3 cm (5' 11 )08/01/2024 1:19 PM EDTBody Mass Index30.9104 1:19 PM EDT Plan of Treatment DateTypeDepartmentCare Team (Latest Contact Info)Qwbbsjjanws02/31/2025 2:40 PM ESTOffice [facility] 7[address] [facility] [address] [place] [phone] Ko Gamble MD [address]03 [facility] [address], [address] [place] [address] Health MaintenanceDue DateLast DoneCommentsCT Notkufembetb88/14/1962FIT-DNA (Cologuard)1961FIT1961HIV Lnynfneqs90/14/1962Lipid Panel1961 Upqtubstvfarr17/14/1962MMR Vaccines (1 of 1 - Standard series)1962Diabetes Pbxcfhope59/14/1980Hepatitis C Ygjwpmiwt08/14/1980CKD: Urine Protein Screening 1980DTaP/Tdap/Td Vaccines (1 - Tdap)07/05/1983Pneumococcal Vaccine (2 of 2 - PCV)/04/2008, 04/23/2003PSA Prostate Cancer Bjctkkozr00/14/2012 Zoster Vaccines (1 of 2)07/05/2011Yearly Adult Caxwjmai88/ Influenza Vaccine (#1)/04/2013, 02/12/2013COVID-19 Vaccine ( - season)12/22/20243439Bilqnyafseq79/22/203505/5Colorectal Cancer Ultivfbpa07/22/2035RSV High Risk: (Elderly (60+) or Population) (1 [...] PCP - GeneralFamily Medicine06/19/23 Ko Gamble MD [address] [place] [address] 2, [address] [place] [address] Consulting PhysicianCardiology06/19/23
--- OUTSIDE RECORDS SUMMARY | 2025-04-08 19:51 | XMS_ITS | Clinical Summary ---
Author Organization [facility] Address [address] [place] [address] Care Team Providers Care Cassandra Architect Name Role Phone Unavailable Primary Care Provider Unavailabl e Social History Tobacco UseTypesPacks/DayYears UsedDateSmoking Tobacco: Never AssessedSex and Gender InformationValueDate RecordedSex Assigned at BirthNot on fileLegal Sex Male03/24/2012 7:35 AM ESTGender IdentityNot on fileSexual OrientationNot on file Plan of Treatment Health MaintenanceDue DateLast DoneCommentsAnxiety Rvilejnpg30/14/1980Depression Sqhlhmxod53/14/1980HIV Iuimxijfa34/14/1980Hepatitis C Nrliclrur01/14/1980 DTaP,Tdap,Td Vaccine (1 - Tdap)1980Lipid Omodtgxmj15/14/1997CT Jgwafbggvbdq49/14/2007Cologuard (FIT-DNA)07/04/20065025Liojyptiabl81/14/2007 Colorectal Cancer Lyuhgphez98/14/2007Diabetes Epylpyoon93/14/2007Fecal Occult Blood2006Prostate Cancer Screening Psnwyyldbk04/14/2007Sigmoidoscopy 2006Pneumococcal Vaccine: 50+ (1 of 1 - PCV)07/05/2011Shingrix Vaccine (1 of 2)07/05/2011Covid-19 Vaccine (1 - 2024- season)2024Influenza Vaccine (#1)2024RSV Vaccine (1 - 1-dose 75+ series)2036 Insurance
--- OUTSIDE RECORDS SUMMARY | 2025-04-08 19:51 | XMS_ITS | Clinical Summary ---
Author Organization [facility] Address [address] [place] [address] Care Team Providers Care Music Researcher Name Role Phone Unavailable Primary Care Provider Unavailabl e Social History Tobacco UseTypesPacks/DayYears UsedDateSmoking Tobacco: Never AssessedSex and Gender InformationValueDate RecordedSex Assigned at BirthNot on fileLegal Sex Male07/05/2022 6:55 PM EDTGender IdentityNot on fileSexual OrientationNot on file Last Filed Vital Signs Vital SignReadingTime TakenCommentsBlood Mgxthjyz428/6704/17/2018 12:00 PM EST Pulse--Temperature--Respiratory Rate--Oxygen Saturation--Inhaled Oxygen Concentration--Deqddq803 kg (235 lb)04/17/2018 12:00 PM WNZEdmerw616.1 cm (5' 10.5 )04/17/2018 12:00 PM ESTBody Mass Index33.24106/18/2017 12:00 PM EST Plan of Treatment Not on file
== END 2025-04-08 19:49 | disposition home or self-care (01) ==
PROVIDERS: PCP Family Medicine; Visit Provider Psychiatry & Neurology Neurology
DX: G47.33 Obstructive sleep apnea (adult) (pediatric) (principal)
CPT/HCPCS: 95811